=== PATIENT | female | born 1950 | race Caucasian/White ===

== ENCOUNTER 2017-06-25 19:05 | Inpatient (IN) | payer MEDICARE, SELFPAY ==
--- NOTE | 2017-06-25 19:51 | PCM.HP.STD ---
Problem List (1) Osteoarthritis of right hip Status: Chronic (2) Anxiety Status: Chronic (3) Hyperlipidemia Status: Chronic (4) Tobacco abuse Status: Chronic (5) Chronic obstructive pulmonary disease Status: Chronic (6) Lumbar disc disease Status: Chronic (7) Obesity Status: Chronic (8) Depression Status: Chronic (9) Chronic kidney disease Status: Chronic (10) Vertigo Status: Chronic (11) HTN (hypertension) Status: Chronic (12) Esophageal reflux Status: Chronic History of Present Illness Date of Admission: 06/25/17 Chief Complaint: Here for rehabilitation, strengthening, prior to discharge home alone. The patient is a 66 year old Female with below past medical history underwent right total hip replacement 06/23/2017 at [facility], admitted to TCU for rehabilitation, strengthening, prior to discharge home alone. Past Medical History Past Medical History (Chronic Problems): Chronic Problems Osteoarthritis of right hip (Chronic) Anxiety (Chronic) Hyperlipidemia (Chronic) Tobacco abuse (Chronic) Chronic obstructive pulmonary disease (Chronic) Lumbar disc disease (Chronic) Obesity (Chronic) Depression (Chronic) Chronic kidney disease (Chronic) Vertigo (Chronic) Tobacco use disorder (Chronic) Hematemesis (Chronic) HTN (hypertension) (Chronic) Esophageal reflux (Chronic) Depressive disorder (Chronic) Allergies ibuprofen Adverse Reaction (Verified 07/31/13 23:28) Other metronidazole [From Flagyl] Adverse Reaction (Verified 07/31/13 23:28) Swelling Home Medications: Ambulatory Orders Medication Instructions Recorded Omeprazole [Prilosec] 20 mg PO DAILY 07/31/13 Sertraline HCl [Zoloft] 50 mg PO QHS 07/31/13 Albuterol Inhaler [Ventolin Hfa 2 puff INHALATION Q4H PRN PRN 06/25/17 (SP)] Docusate Sodium [Colace] 100 mg PO BID 06/25/17 Enoxaparin [Lovenox] 40 mg SC DAILY@0600 06/25/17 HYDROmorphone tablet [Dilaudid] 1 - 2 tab PO Q4H PRN PRN 06/25/17 Lidocaine [Lidoderm] 1 patch TOPICAL DAILY 06/25/17 Lisinopril/Hydrochlorothiazide 1 each PO DAILY 06/25/17 [Zestoretic 20-12.5 mg Tablet] Pravastatin [Pravachol] 40 mg PO QHS 06/25/17 Sennosides [Senna] 8.6 mg PO DAILY 06/25/17 Tizanidine HCl 4 mg PO DAILY 06/25/17 Topiramate [Topamax] 25 mg PO BID 06/25/17 Verapamil HCl [Verapamil Sr] 270 mg PO DAILY 06/25/17 buPROPion SR [Wellbutrin SR (150mg 150 mg PO BID 06/25/17 tablets)] Surgical History: hysterectomy, total hip arthroplasty - Right. Psychiatric History: Anxiety, Depression HOSPITAL NURSE History: No pertinent HOSPITAL NURSE history Lives: Alone Smoking Status: Current every day smoker Tobacco Use: Cigarettes Alcohol: Rare Drugs: None - *Family History Maternal History Items: No pertinent history Paternal History Items: No pertinent history Review of Systems Constitutional: Denies: Chills, Fever, Weight Change HEENT: Denies: Head Aches, Sinus Congestion, Sinus Drainage Cardiovascular: Denies: Chest Pain, Palpitations Respiratory: Denies: Cough, Shortness of breath at rest, Sputum production Gastrointestinal: Reports: Constipation. Denies: Abdominal Pain, Nausea, Vomiting Genitourinary: Denies: Dysuria Musculoskeletal: Denies: Joint Pain, Joint Tenderness Skin: Denies: Rash, Wounds Neurological: Denies: Numbness, Tingling, Focal weakness Psychiatric: Denies: Anxiety, Depression, Homicidal Ideations, Suicidal Ideations Hematologic/ Lymphatic: Denies: Easy Bruising, Easy Bleeding VTE Information - Inpt Only VTE Present on Admission: No VTE Mechan Device Prophylaxis: Knee High JOHN Hose VTE Pharm Prophylaxis ordered?: Yes - Physical Exam General: Alert, Oriented x3, Cooperative HEENT: Atraumatic, PERRLA, EOMI, Normocephalic Neck: Supple, No JVD, Negative Carotid Bruits Lungs: Clear to auscultation, Normal air movement Cardiovascular: Regular rate, No murmurs Abdomen: Bowel Sounds Present, Soft, Non Tender Extremities: No edema, Capillary Refill Less than 3 Seconds Skin: No rashes, No breakdown, Incision - Right hip clean, dry, intact. Musculoskeletal: No Tenderness to Palpation of Joints or Extremities Neurological: Cranial nerves II-XII grossly intact Psych/Mental Status: Normal Affect, Appropriate Assessment/Plan 66 year old female with below past medical history hospitalized for right total hip replacement 06/23/2017, admitted to TCU with debility, here for rehabilitation, strengthening, prior to discharge home alone. Debility - PT/OT. Pain - Tylenol 1000MG Q8H PRN mild pain, Dilaudid 4MG 1 tablet Q4H PRN severe pain, Lidoderm patch 1 patch daily. Bowel - Miralax 17GM daily, Senna/colace 2 tablets BID, Dulcolax 10MG PO daily PRN, Clean out with Golytely 2 Liters PO x 1 dose. Pneumonia vaccination - Administer Prevnar 13 and/or Pneumovax 23 as necessary. DVT prophylaxis - Lovenox 40MG SC daily. Shortness of breath - Albuterol 2 puffs Q4H PRN. Depression - Bupropion SR 150MG BID, Sertraline 50MG QHS, Topamax 25MG BID. Hypertension - Lisinopril HCT 20/12.5MG daily, Verapamil 270MG daily. GERD - Pantoprazole 20MG daily. Hyperlipidemia - Pravastatin 40MG QHS. Muscle spasm - Tizanidine 4MG daily.
[2017-06-25 19:53] VITALS: BMI 43.9
[2017-06-25 19:59] VITALS: BP 109/59; PULSE 75; RESP 18; TEMP 36.6; O2SAT 94
--- NOTE | 2017-06-25 20:02 | HP.PCM_ITS ---
Problem List (1) Osteoarthritis of right hip Status: Chronic (2) Anxiety Status: Chronic (3) Hyperlipidemia Status: Chronic (4) Tobacco abuse Status: Chronic (5) Chronic obstructive pulmonary disease Status: Chronic (6) Lumbar disc disease Status: Chronic (7) Obesity Status: Chronic (8) Depression Status: Chronic (9) Chronic kidney disease Status: Chronic (10) Vertigo Status: Chronic (11) HTN (hypertension) Status: Chronic (12) Esophageal reflux Status: Chronic History of Present Illness Date of Admission: 06/25/17 Chief Complaint: Here for rehabilitation, strengthening, prior to discharge home alone. The patient is a 66 year old Female with below past medical history underwent right total hip replacement 06/23/2017 at [facility], admitted to TCU for rehabilitation, strengthening, prior to discharge home alone. Past Medical History Past Medical History (Chronic Problems): Chronic Problems Osteoarthritis of right hip (Chronic) Anxiety (Chronic) Hyperlipidemia (Chronic) Tobacco abuse (Chronic) Chronic obstructive pulmonary disease (Chronic) Lumbar disc disease (Chronic) Obesity (Chronic) Depression (Chronic) Chronic kidney disease (Chronic) Vertigo (Chronic) Tobacco use disorder (Chronic) Hematemesis (Chronic) HTN (hypertension) (Chronic) Esophageal reflux (Chronic) Depressive disorder (Chronic) Allergies ibuprofen Adverse Reaction (Verified 07/31/13 23:28) Other metronidazole [From Flagyl] Adverse Reaction (Verified 07/31/13 23:28) Swelling Home Medications: Ambulatory Orders Medication Instructions Recorded Omeprazole [Prilosec] 20 mg PO DAILY 07/31/13 Sertraline HCl [Zoloft] 50 mg PO QHS 07/31/13 Albuterol Inhaler [Ventolin Hfa 2 puff INHALATION Q4H PRN PRN 06/25/17 (SP)] Docusate Sodium [Colace] 100 mg PO BID 06/25/17 Enoxaparin [Lovenox] 40 mg SC DAILY@0600 06/25/17 HYDROmorphone tablet [Dilaudid] 1 - 2 tab PO Q4H PRN PRN 06/25/17 Lidocaine [Lidoderm] 1 patch TOPICAL DAILY 06/25/17 Lisinopril/Hydrochlorothiazide 1 each PO DAILY 06/25/17 [Zestoretic 20-12.5 mg Tablet] Pravastatin [Pravachol] 40 mg PO QHS 06/25/17 Sennosides [Senna] 8.6 mg PO DAILY 06/25/17 Tizanidine HCl 4 mg PO DAILY 06/25/17 Topiramate [Topamax] 25 mg PO BID 06/25/17 Verapamil HCl [Verapamil Sr] 270 mg PO DAILY 06/25/17 buPROPion SR [Wellbutrin SR (150mg 150 mg PO BID 06/25/17 tablets)] Surgical History: hysterectomy, total hip arthroplasty - Right. Psychiatric History: Anxiety, Depression OPERATIONS SUPPORT PROFESSIONALS History: No pertinent [employer]ATIONS SUPPORT PROFESSIONALS history Lives: Alone Smoking Status: Current every day smoker Tobacco Use: Cigarettes Alcohol: Rare Drugs: None - *Family History Maternal History Items: No pertinent history Paternal History Items: No pertinent history Review of Systems Constitutional: Denies: Chills, Fever, Weight Change HEENT: Denies: Head Aches, Sinus Congestion, Sinus Drainage Cardiovascular: Denies: Chest Pain, Palpitations Respiratory: Denies: Cough, Shortness of breath at rest, Sputum production Gastrointestinal: Reports: Constipation. Denies: Abdominal Pain, Nausea, Vomiting Genitourinary: Denies: Dysuria Musculoskeletal: Denies: Joint Pain, Joint Tenderness Skin: Denies: Rash, Wounds Neurological: Denies: Numbness, Tingling, Focal weakness Psychiatric: Denies: Anxiety, Depression, Homicidal Ideations, Suicidal Ideations Hematologic/ Lymphatic: Denies: Easy Bruising, Easy Bleeding VTE Information - Inpt Only VTE Present on Admission: No VTE Mechan Device Prophylaxis: Knee High JOHN Hose VTE Pharm Prophylaxis ordered?: Yes - Physical Exam General: Alert, Oriented x3, Cooperative HEENT: Atraumatic, PERRLA, EOMI, Normocephalic Neck: Supple, No JVD, Negative Carotid Bruits Lungs: Clear to auscultation, Normal air movement Cardiovascular: Regular rate, No murmurs Abdomen: Bowel Sounds Present, Soft, Non Tender Extremities: No edema, Capillary Refill Less than 3 Seconds Skin: No rashes, No breakdown, Incision - Right hip clean, dry, intact. Musculoskeletal: No Tenderness to Palpation of Joints or Extremities Neurological: Cranial nerves II-XII grossly intact Psych/Mental Status: Normal Affect, Appropriate Assessment/Plan 66 year old female with below past medical history hospitalized for right total hip replacement 06/23/2017, admitted to TCU with debility, here for rehabilitation, strengthening, prior to discharge home alone. * Debility - PT/OT. * Pain - Tylenol 1000MG Q8H PRN mild pain, Dilaudid 4MG 1 tablet Q4H PRN severe pain, Lidoderm patch 1 patch daily. * Bowel - Miralax 17GM daily, Senna/colace 2 tablets BID, Dulcolax 10MG PO daily PRN, Clean out with Golytely 2 Liters PO x 1 dose. * Pneumonia vaccination - Administer Prevnar 13 and/or Pneumovax 23 as necessary. * DVT prophylaxis - Lovenox 40MG SC daily. * Shortness of breath - Albuterol 2 puffs Q4H PRN. * Depression - Bupropion SR 150MG BID, Sertraline 50MG QHS, Topamax 25MG BID. * Hypertension - Lisinopril HCT 20/12.5MG daily, Verapamil 270MG daily. * GERD - Pantoprazole 20MG daily. * Hyperlipidemia - Pravastatin 40MG QHS. * Muscle spasm - Tizanidine 4MG daily.
[2017-06-25 20:05] VITALS: BMI 43.9
[2017-06-25 20:23] VITALS: O2SAT 94
--- NOTE | 2017-06-25 21:18 | NURSING ---
Dr. Roldan aware of no Bm since 06/22 and pt requesting nicotine patch. Orders entered.
[2017-06-25] MEDS: Sertraline 50 MG Tablet PO (21:53)
[2017-06-25] MEDS: Pravastatin 40 MG Tablet PO (21:54)
[2017-06-25] MEDS: Magnesium Citrate 300 ML PO (22:54)
[2017-06-26] MEDS: HYDROmorphone 2 MG TABLET 4 MG PO ×4 (00:11→23:15)
[2017-06-26] MEDS: Lidocaine 5% Patch 1 PATCH TOPICAL (06:25)
[2017-06-26] MEDS: Polyethylene Glycol 3350 17 GM PACKET PO (06:25)
[2017-06-26] MEDS: Pantoprazole Sodium 20 MG Tablet PO (06:25)
[2017-06-26] MEDS: Senna/Docusate Sodium 1 Tablet 2 TABLET PO ×2 (06:25→17:16)
[2017-06-26] MEDS: Lisinopril 20 MG Tablet PO (06:39)
[2017-06-26] MEDS: tiZANidine HCl 2 MG Tablet 4 MG PO (07:18)
[2017-06-26] MEDS: HYDROCHLOROTHIAZIDE 12.5 MG CAPSULE PO (07:19)
[2017-06-26 07:22] LABS: Absolute Lymphocyte Count 2.64 X10^3/ul (0.83-4.51); Absolute Neutrophil Count 7.2 X10^3/uL (2.0-7.7); BUN 20 mg/dL (7-18); Basophil# 0.03 X10^3/uL; Basophil% 0.3 % (0-1); Creatinine, Serum 0.95 mg/dL (0.55-1.02); EST Glomerular Filtration Rate 63 mL/min (>60); Eosinophil# 0.11 X10^3/uL; Estimated Creatinine Clearance 48.84 ml/min; Glucose 98 mg/dL (74-106); Hematocrit 36.1 % (37-47); Hemoglobin 11.3 g/dl (12.0-15.0); Lymphocyte # 2.64 X10^3/ul (4.0); Lymphocyte % 23.7 % (19-41); Mean Corp Hgb Conc 31.3 g/gl (32-36); Mean Corpuscular Hgb 29.4 pg (27.0-32.0); Mean Platelet Vol. 10.1 fl (6.2-12.0); Monocyte# 1.18 X10^3/uL; Monocyte% 10.6 % (0-10); Neutrophil # 7.17 X10^3/uL (2.7-7.7); Neutrophil % 64.1 % (47-70); POSITIVE COUNT NO; POSITIVE DIFFERENTIAL NO; POSITIVE MORPHOLOGY NO; Platelet Count 268 K/mm3 (150-450); RBC Distribution Width CV 14.1 % (11.6-14.6); Red Blood Count 3.84 M/mm3 (4.2-5.4); White Blood Count 11.2 K/mm3 (4.4-11.0)
[2017-06-26 07:23] LABS: Anion Gap 8 (5-15); Chloride 102 mmol/L (98-107); Est Glom Filt Rate - Afr Amer 76 mL/min (>60); Potassium 3.5 mmol/L (3.5-5.1); Sodium Level 139 mmol/L (136-145)
[2017-06-26] MEDS: buPROPion (SR) 150 MG Tablet.SA PO ×2 (09:01→17:16)
[2017-06-26] MEDS: Enoxaparin 40 MG/0.4 ML Syringe SC (09:01)
--- NOTE | 2017-06-26 09:08 | NURSING ---
old nicotine patch removed and wasted with marley osuna down the toilet. old patch was from [facility] new patch to left delt.
[2017-06-26] MEDS: Tuberculin,Purif.prot.deriv. 50 TU/ML Vial 5 ML ID (09:50)
[2017-06-26 10:00] VITALS: PULSE 77; RESP 18; O2SAT 94
[2017-06-26] MEDS: Bisacodyl 5 MG Tablet 10 MG PO (14:41)
[2017-06-26 15:34] VITALS: BP 101/50; PULSE 78; RESP 16; TEMP 37.2; O2SAT 95
[2017-06-26] MEDS: Topiramate 25 MG Tablet PO (17:16)
[2017-06-26] MEDS: Pravastatin 40 MG Tablet PO (20:56)
[2017-06-26] MEDS: Sertraline 50 MG Tablet PO (20:56)
--- NOTE | 2017-06-26 21:13 | NURSING ---
BP 94/50 RECHECKED X 3 WITH MANUAL CUFF VERAPAMIL HELD. ALSO PER [facility] [employer] PROFESSOR PATIENT REMOVED HER NICOTINE PATCH. PATIENT REQUESTED NEW PATCH NOW. VERIFIED WITH BILLIE HUANG. OK TO PLACE. CURRENTLY NEW PATCH ON RIGHT SHOULDER. WILL CONT TO MONITOR. BILLIE HUANG. AWARE OF SAME.
[2017-06-27] MEDS: HYDROmorphone 2 MG TABLET 4 MG PO ×3 (03:18→21:03)
[2017-06-27] MEDS: Lidocaine 5% Patch 1 PATCH TOPICAL (04:56)
[2017-06-27] MEDS: Polyethylene Glycol 3350 17 GM PACKET PO (04:57)
[2017-06-27] MEDS: Senna/Docusate Sodium 1 Tablet 2 TABLET PO ×2 (04:57→17:26)
[2017-06-27] MEDS: tiZANidine HCl 2 MG Tablet 4 MG PO (04:58)
[2017-06-27] MEDS: HYDROCHLOROTHIAZIDE 12.5 MG CAPSULE PO (04:58)
[2017-06-27] MEDS: Topiramate 25 MG Tablet PO ×2 (04:58→17:26)
[2017-06-27] MEDS: Lisinopril 20 MG Tablet PO (04:59)
[2017-06-27] MEDS: Pantoprazole Sodium 20 MG Tablet PO (05:00)
[2017-06-27] MEDS: Enoxaparin 40 MG/0.4 ML Syringe SC (05:01)
[2017-06-27 06:00] VITALS: PULSE 60; RESP 18; O2SAT 95
[2017-06-27] MEDS: buPROPion (SR) 150 MG Tablet.SA PO ×2 (08:02→17:26)
[2017-06-27] MEDS: Bisacodyl 5 MG Tablet 10 MG PO (15:43)
[2017-06-27 15:50] VITALS: BP 102/58; PULSE 82; RESP 16; TEMP 37.1; O2SAT 95
--- NOTE | 2017-06-27 17:25 | NURSING ---
CA PATCH VERIFIED TO PT LEFT SHOULDER.
[2017-06-27] MEDS: Verapamil SR 240 MG Tablet PO (21:05)
[2017-06-27] MEDS: Pravastatin 40 MG Tablet PO (21:06)
[2017-06-27] MEDS: Sertraline 50 MG Tablet PO (21:06)
[2017-06-28] MEDS: HYDROmorphone 2 MG TABLET 4 MG PO ×4 (02:06→20:16)
[2017-06-28] MEDS: Lidocaine 5% Patch 1 PATCH TOPICAL (05:38)
[2017-06-28] MEDS: Pantoprazole Sodium 20 MG Tablet PO (05:39)
[2017-06-28] MEDS: HYDROCHLOROTHIAZIDE 12.5 MG CAPSULE PO (05:39)
[2017-06-28] MEDS: Senna/Docusate Sodium 1 Tablet 2 TABLET PO ×2 (05:39→17:07)
[2017-06-28] MEDS: Polyethylene Glycol 3350 17 GM PACKET PO (05:39)
[2017-06-28] MEDS: Lisinopril 20 MG Tablet PO (05:39)
[2017-06-28] MEDS: tiZANidine HCl 2 MG Tablet 4 MG PO (05:39)
[2017-06-28] MEDS: Enoxaparin 40 MG/0.4 ML Syringe SC (05:40)
[2017-06-28] MEDS: Topiramate 25 MG Tablet PO ×2 (05:40→17:07)
[2017-06-28 05:45] VITALS: PULSE 78; RESP 18; O2SAT 93
[2017-06-28] MEDS: buPROPion (SR) 150 MG Tablet.SA PO ×2 (07:55→17:07)
--- NOTE | 2017-06-28 09:38 | NURSING ---
Pt LBM 06/22, routine meds ineffective. Dr Roldan notified, new order for golytely to be given today. Pt wants after therapy session today.
[2017-06-28] MEDS: Electrolyte Solution/Peg's 4000 ML 2000 ML PO (15:07)
[2017-06-28 16:13] VITALS: BP 107/71; PULSE 78; RESP 16; TEMP 36.7; O2SAT 93
[2017-06-28] MEDS: Sertraline 50 MG Tablet PO (20:16)
[2017-06-28] MEDS: Verapamil SR 240 MG Tablet PO (20:17)
[2017-06-28] MEDS: Pravastatin 40 MG Tablet PO (20:18)
--- NOTE | 2017-06-28 20:19 | NURSING ---
Pt c/o pain to hip, down leg which is worsened with 'repeatedly getting up to go to the bathroom'. Stated she is still drinking golytely but 'my stomach is upset'. Given prn pain medication per request, repositioned for comfort. Continuing to monitor.
[2017-06-29] MEDS: HYDROmorphone 2 MG TABLET 4 MG PO ×5 (01:37→21:57)
--- NOTE | 2017-06-29 01:46 | NURSING ---
Pt c/o feeling light headed, slightly dizzy, nauseated and in pain. Given prn dilaudid 4mg as requested. Toileted with assist of 2 to BSC, pt sat on side of bed for awhile, and was assisted with 2 back to bed, repositioned for comfort. RN aware, continuing to monitor.
[2017-06-29] MEDS: Polyethylene Glycol 3350 17 GM PACKET PO (04:48)
--- NOTE | 2017-06-29 04:49 | NURSING ---
Pt up and down throughout night on BSC. During transfer back to bed pt lifted and slammed her walker down several times yelling 'It just doesn't want to work!' becoming visibly frustrated. Assisted to sitting on side of bed. Pt has asked for pain medication several times, aware it is too early. Assured pt when orders allow medication it will be given as requested. Pt okay with this. Did not want to lie down, wanted to be 'left alone' to sit on side of bed 'for awhile' Pt has call light and stated she will call when ready to be assisted back into bed, or after she is given pain medication. Encouraged pt to call for staff assist. RN aware, continuing to monitor.
[2017-06-29] MEDS: HYDROCHLOROTHIAZIDE 12.5 MG CAPSULE PO (05:25)
[2017-06-29] MEDS: Lidocaine 5% Patch 1 PATCH TOPICAL (05:25)
[2017-06-29] MEDS: Enoxaparin 40 MG/0.4 ML Syringe SC (05:26)
[2017-06-29] MEDS: Pantoprazole Sodium 20 MG Tablet PO (05:28)
[2017-06-29] MEDS: Lisinopril 20 MG Tablet PO (05:29)
[2017-06-29] MEDS: Senna/Docusate Sodium 1 Tablet 2 TABLET PO ×2 (05:29→17:02)
[2017-06-29] MEDS: Topiramate 25 MG Tablet PO ×2 (05:29→17:02)
--- NOTE | 2017-06-29 05:38 | NURSING ---
Pt given prn pain medication per request, repositioned for comfort. Continuing to monitor, encourage rest.
[2017-06-29] MEDS: buPROPion (SR) 150 MG Tablet.SA PO ×2 (08:56→17:02)
--- NOTE | 2017-06-29 08:58 | NURSING ---
VERIFIED NICOTINE PATCH TO LEFT DELT.
[2017-06-29 10:00] VITALS: PULSE 65; RESP 18; O2SAT 92
--- NOTE | 2017-06-29 10:03 | NURSING ---
FINISHED REMOVING PT DRESSING TO RIGHT HIP THAT WAS COMING OFF AND BRINGING TOP LAYER OF SKIN WITH IT IN SPOTS.NO SIGNS OF INFECTION OR REDNESS,COOL TO TOUCH. 1 WATER BLISTER AT TOP OF INCISION AND 1 OPENED. 1 OPEN AREA AT END OF TOP INCISION. APPLIED STERI STRIPS TO DISTAL END AND ABD TO UPPER AREA OF INCISIONS TO COVER BLISTERS. HAD BILLIE MCCOY LOOK AT INCISION. PT TOLERATED WELL.
--- NOTE | 2017-06-29 12:37 | PHA.CONS_ITS ---
<AngelaChaz mills - Last Filed: 06/29/17 12:31> Progress Note - Pharmacy Subjective: TCU Admission Objective: Allergies ibuprofen Adverse Reaction (Verified 07/31/13 23:28) Other metronidazole [From Flagyl] Adverse Reaction (Verified 07/31/13 23:28) Swelling Home Medications Medication Instructions Recorded Omeprazole [Prilosec] 20 mg PO DAILY 07/31/13 Sertraline HCl [Zoloft] 50 mg PO QHS 07/31/13 Albuterol Inhaler [Ventolin Hfa 2 puff INHALATION Q4H PRN PRN 06/25/17 (SP)] Docusate Sodium [Colace] 100 mg PO BID 06/25/17 Enoxaparin [Lovenox] 40 mg SC DAILY@0600 06/25/17 HYDROmorphone tablet [Dilaudid] 1 - 2 tab PO Q4H PRN PRN 06/25/17 Lidocaine [Lidoderm] 1 patch TOPICAL DAILY 06/25/17 Lisinopril/Hydrochlorothiazide 1 each PO DAILY 06/25/17 [Zestoretic 20-12.5 mg Tablet] Pravastatin [Pravachol] 40 mg PO QHS 06/25/17 Sennosides [Senna] 8.6 mg PO DAILY 06/25/17 Tizanidine HCl 4 mg PO DAILY 06/25/17 Topiramate [Topamax] 25 mg PO BID 06/25/17 Verapamil HCl [Verapamil Sr] 270 mg PO DAILY 06/25/17 buPROPion SR [Wellbutrin SR (150mg 150 mg PO BID 06/25/17 tablets)] Current Medications Generic Name Dose Route Start Last Admin Trade Name Freq PRN Reason Stop Dose Admin Acetaminophen 1,000 mg 06/25/17 20:24 Tylenol PO Q8H PRN PRN MILD PAIN (1-3/10) Albuterol Sulfate 2 puff 06/25/17 19:54 Ventolin Hfa (Sp) INHALATION Q4H PRN PRN DYSPNEA/WHEEZING/SOB Bisacodyl 10 mg 06/25/17 20:24 06/27/17 15:43 Dulcolax PO 10 mg DAILY PRN Administration Constipation Bupropion HCl 150 mg 06/26/17 08:00 06/29/17 08:56 Wellbutrin Sr (150mg Tablets) PO 150 mg BIDCM RAMIREZ Administration Enoxaparin Sodium 40 mg 06/26/17 06:00 06/29/17 05:26 Lovenox SC 40 mg DAILY@0600 RAMIREZ Administration Hydrochlorothiazide 12.5 mg 06/26/17 06:00 06/29/17 05:25 Hydrochlorothiazide PO 12.5 mg DAILY RAMIREZ Administration Hydromorphone HCl 4 mg 06/25/17 20:25 06/29/17 12:03 Dilaudid Tablet PO 4 mg Q4H PRN PRN Administration SEVERE PAIN (6-10/10) Lidocaine 1 patch 06/26/17 06:00 06/29/17 05:25 Lidoderm Patch TOPICAL 1 patch DAILY RAMIREZ Administration Protocol Lisinopril 20 mg 06/26/17 06:00 06/29/17 05:29 Zestril PO 20 mg DAILY RAMIREZ Administration Nicotine 7 mg 06/25/17 21:18 06/29/17 05:26 Nicoderm Cq (Pbkc) TRANSDERM. 7 mg DAILY RAMIREZ Administration Pantoprazole Sodium 20 mg 06/26/17 06:00 06/29/17 05:28 Protonix PO 20 mg DAILY RAMIREZ Administration Polyethylene Glycol 17 gm 06/26/17 06:00 06/29/17 04:48 Miralax PO 17 gm DAILY RAMIREZ Administration Pravastatin Sodium 40 mg 06/25/17 22:00 06/28/17 20:18 Pravachol PO 40 mg QHS RAMIREZ Administration Senna/Docusate Sodium 2 tablet 06/26/17 06:00 06/29/17 05:29 Senokot-S, Rosangela-Colace PO 2 tablet BID RAMIREZ Administration Sertraline HCl 50 mg 06/25/17 22:00 06/28/17 20:16 Zoloft PO 50 mg QHS RAMIREZ Administration Tizanidine HCl 4 mg 06/26/17 06:00 06/28/17 05:39 Zanaflex PO 4 mg DAILY RAMIREZ Administration Topiramate 25 mg 06/26/17 06:00 06/29/17 05:29 Topamax PO 25 mg BID RAMIREZ Administration Tuberculin PPD 5 tu 07/03/17 10:00 Tubersol, Aplisol, Ppd ID 07/03/17 10:01 X1 ONE Verapamil HCl 240 mg 06/26/17 22:00 06/28/17 20:17 Calan Sr PO 240 mg DAILY@2200 RAMIREZ Administration Problem List Osteoarthritis of right hip (Chronic) Anxiety (Chronic) Hyperlipidemia (Chronic) Tobacco abuse (Chronic) Chronic obstructive pulmonary disease (Chronic) Lumbar disc disease (Chronic) Obesity (Chronic) Depression (Chronic) Chronic kidney disease (Chronic) Vertigo (Chronic) Vital Signs Temp Pulse Resp BP Pulse Ox 98.0 F 65 18 107/71 92 06/28/17 16:13 06/29/17 10:00 06/29/17 10:00 06/28/17 16:13 06/29/17 10:00 Oxygen Delivery Method Room Air Weight: 119.011 kg Body Mass Index (BMI) 43.9 Sodium 139 mmol/L (136-145) 06/26/17 06:52 Potassium 3.5 mmol/L (3.5-5.1) 06/26/17 06:52 Chloride 102 mmol/L (98-107) 06/26/17 06:52 Carbon Dioxide 29.0 mmol/L (21.0-32.0) 06/26/17 06:52 Anion Gap 8 (5-15) 06/26/17 06:52 BUN 20 mg/dL (7-18) H 06/26/17 06:52 Creatinine 0.95 mg/dL (0.55-1.02) 06/26/17 06:52 Est GFR (MDRD) Af Amer 76 mL/min (>60) 06/26/17 06:52 Est GFR (MDRD) Non-Af 63 mL/min (>60) 06/26/17 06:52 BUN/Creatinine Ratio 21.0 RATIO (10-20) H 06/26/17 06:52 Glucose 98 mg/dL (74-106) 06/26/17 06:52 Assessment/Plan: 1) Pain Lidocaine patch, hydromorphone for severe pain, APAP for mild pain, tizanidine. Continue to monitor daily pain scores, prn medication use. 2) HTN/HLD Verapamil, pravastatin, lisinopril, HCTZ. Avg BP/HR within goal ranges, K wnl , BUN/SCr at baseline. Continue to monitor BP/HR, renal function, electrolytes. 3) GI Pantoprazole daily. Continue to monitor s/s GI distress. 4) Nicotine Cravings Nicotine patch daily. Continue to monitor for cravings. 5) DVT PPx Enoxaparin daily. Continue to monitor s/s bleeding/clot. Psychotropic Medications: 6) Depression Sertraline at HS, bupropion twice daily, topiramate. Continue to monitor s/s depression. Unnecessary Medications: None Bowel Regimen: 7) Senna/s, PEG, prn bisacodyl. Continue to monitor prn medication use, for constipation/diarrhea. Date of Note:: 06/29/17 - Provider Comments Provider responsibility: Provider responsible to enter orders to implement recommendations <Edmundo Roldan Chi - Last Filed: 06/29/17 17:46> Progress Note - Pharmacy Subjective: [] Objective: Allergies ibuprofen Adverse Reaction (Verified 07/31/13 23:28) Other metronidazole [From Flagyl] Adverse Reaction (Verified 07/31/13 23:28) Swelling Home Medications Medication Instructions Recorded Omeprazole [Prilosec] 20 mg PO DAILY 07/31/13 Sertraline HCl [Zoloft] 50 mg PO QHS 07/31/13 Albuterol Inhaler [Ventolin Hfa 2 puff INHALATION Q4H PRN PRN 06/25/17 (SP)] Docusate Sodium [Colace] 100 mg PO BID 06/25/17 Enoxaparin [Lovenox] 40 mg SC DAILY@0600 06/25/17 HYDROmorphone tablet [Dilaudid] 1 - 2 tab PO Q4H PRN PRN 06/25/17 Lidocaine [Lidoderm] 1 patch TOPICAL DAILY 06/25/17 Lisinopril/Hydrochlorothiazide 1 each PO DAILY 06/25/17 [Zestoretic 20-12.5 mg Tablet] Pravastatin [Pravachol] 40 mg PO QHS 06/25/17 Sennosides [Senna] 8.6 mg PO DAILY 06/25/17 Tizanidine HCl 4 mg PO DAILY 06/25/17 Topiramate [Topamax] 25 mg PO BID 06/25/17 Verapamil HCl [Verapamil Sr] 270 mg PO DAILY 06/25/17 buPROPion SR [Wellbutrin SR (150mg 150 mg PO BID 06/25/17 tablets)] Current Medications Generic Name Dose Route Start Last Admin Trade Name Freq PRN Reason Stop Dose Admin Acetaminophen 1,000 mg 06/25/17 20:24 Tylenol PO Q8H PRN PRN MILD PAIN (1-3/10) Albuterol Sulfate 2 puff 06/25/17 19:54 Ventolin Hfa (Sp) INHALATION Q4H PRN PRN DYSPNEA/WHEEZING/SOB Bisacodyl 10 mg 06/25/17 20:24 06/27/17 15:43 Dulcolax PO 10 mg DAILY PRN Administration Constipation Bupropion HCl 150 mg 06/26/17 08:00 06/29/17 17:02 Wellbutrin Sr (150mg Tablets) PO 150 mg BIDCM RAMIREZ Administration Enoxaparin Sodium 40 mg 06/26/17 06:00 06/29/17 05:26 Lovenox SC 40 mg DAILY@0600 RAMIREZ Administration Hydrochlorothiazide 12.5 mg 06/26/17 06:00 06/29/17 05:25 Hydrochlorothiazide PO 12.5 mg DAILY RAMIREZ Administration Hydromorphone HCl 4 mg 06/25/17 20:25 06/29/17 16:41 Dilaudid Tablet PO 4 mg Q4H PRN PRN Administration SEVERE PAIN (6-10/10) Lidocaine 1 patch 06/26/17 06:00 06/29/17 05:25 Lidoderm Patch TOPICAL 1 patch DAILY RAMIREZ Administration Protocol Lisinopril 20 mg 06/26/17 06:00 06/29/17 05:29 Zestril PO 20 mg DAILY RAMIREZ Administration Nicotine 7 mg 06/25/17 21:18 06/29/17 05:26 Nicoderm Cq (Pbkc) TRANSDERM. 7 mg DAILY RAMIREZ Administration Ondansetron HCl 4 mg 06/29/17 14:22 Zofran Odt PO Q8H PRN PRN NAUSEA/VOMITING Pantoprazole Sodium 20 mg 06/26/17 06:00 06/29/17 05:28 Protonix PO 20 mg DAILY RAMIREZ Administration Polyethylene Glycol 17 gm 06/26/17 06:00 06/29/17 04:48 Miralax PO 17 gm DAILY RAMIREZ Administration Pravastatin Sodium 40 mg 06/25/17 22:00 06/28/17 20:18 Pravachol PO 40 mg QHS RAMIREZ Administration Senna/Docusate Sodium 2 tablet 06/26/17 06:00 06/29/17 17:02 Senokot-S, Rosangela-Colace PO 2 tablet BID RAMIREZ Administration Sertraline HCl 50 mg 06/25/17 22:00 06/28/17 20:16 Zoloft PO 50 mg QHS RAMIREZ Administration Tizanidine HCl 4 mg 06/26/17 06:00 06/28/17 05:39 Zanaflex PO 4 mg DAILY RAMIREZ Administration Topiramate 25 mg 06/26/17 06:00 06/29/17 17:02 Topamax PO 25 mg BID RAMIREZ Administration Tuberculin PPD 5 tu 07/03/17 10:00 Tubersol, Aplisol, Ppd ID 07/03/17 10:01 X1 ONE Verapamil HCl 240 mg 06/26/17 22:00 06/28/17 20:17 Calan Sr PO 240 mg DAILY@2200 RAMIREZ Administration Problem List Osteoarthritis of right hip (Chronic) Anxiety (Chronic) Hyperlipidemia (Chronic) Tobacco abuse (Chronic) Chronic obstructive pulmonary disease (Chronic) Lumbar disc disease (Chronic) Obesity (Chronic) Depression (Chronic) Chronic kidney disease (Chronic) Vertigo (Chronic) Vital Signs Temp Pulse Resp BP Pulse Ox 97.5 F L 60 20 H 96/58 L 93 06/29/17 16:00 06/29/17 16:00 06/29/17 16:00 06/29/17 16:00 06/29/17 16:00 Oxygen Delivery Method Room Air Weight: 119.011 kg Body Mass Index (BMI) 43.9 Sodium 139 mmol/L (136-145) 06/26/17 06:52 Potassium 3.5 mmol/L (3.5-5.1) 06/26/17 06:52 Chloride 102 mmol/L (98-107) 06/26/17 06:52 Carbon Dioxide 29.0 mmol/L (21.0-32.0) 06/26/17 06:52 Anion Gap 8 (5-15) 06/26/17 06:52 BUN 20 mg/dL (7-18) H 06/26/17 06:52 Creatinine 0.95 mg/dL (0.55-1.02) 06/26/17 06:52 Est GFR (MDRD) Af Amer 76 mL/min (>60) 06/26/17 06:52 Est GFR (MDRD) Non-Af 63 mL/min (>60) 06/26/17 06:52 BUN/Creatinine Ratio 21.0 RATIO (10-20) H 06/26/17 06:52 Glucose 98 mg/dL (74-106) 06/26/17 06:52 Assessment/Plan: Psychotropic Medications: Unnecessary Medications: Bowel Regimen: - Provider Comments Provider responsibility: Provider responsible to enter orders to implement recommendations Provider Comments to Recommendations by Pharmacy: Agree
--- NOTE | 2017-06-29 14:23 | NURSING ---
Patient c/o nausea, Dr. Roldan made aware, NO for zofran 4mg PO [id number] PRN.
[2017-06-29 16:00] VITALS: BP 96/58; PULSE 60; RESP 20; TEMP 36.4; O2SAT 93
[2017-06-29] MEDS: Pravastatin 40 MG Tablet PO (20:43)
[2017-06-29] MEDS: Sertraline 50 MG Tablet PO (20:43)
[2017-06-30] MEDS: HYDROmorphone 2 MG TABLET 4 MG PO ×4 (05:27→21:50)
[2017-06-30] MEDS: Lidocaine 5% Patch 1 PATCH TOPICAL (05:28)
[2017-06-30] MEDS: HYDROCHLOROTHIAZIDE 12.5 MG CAPSULE PO (05:29)
[2017-06-30] MEDS: Senna/Docusate Sodium 1 Tablet 2 TABLET PO ×2 (05:29→17:27)
[2017-06-30] MEDS: Enoxaparin 40 MG/0.4 ML Syringe SC (05:29)
[2017-06-30] MEDS: Polyethylene Glycol 3350 17 GM PACKET PO (05:29)
[2017-06-30] MEDS: Lisinopril 20 MG Tablet PO (05:29)
[2017-06-30] MEDS: Topiramate 25 MG Tablet PO ×2 (05:30→17:27)
[2017-06-30] MEDS: Pantoprazole Sodium 20 MG Tablet PO (05:30)
[2017-06-30] MEDS: tiZANidine HCl 2 MG Tablet 4 MG PO (05:30)
[2017-06-30] MEDS: buPROPion (SR) 150 MG Tablet.SA PO ×2 (08:09→17:27)
--- NOTE | 2017-06-30 14:27 | CASEMGMT ---
Plan of care meeting held. Resident present as well as resident family. No discharge date set at this time. Resident to continue with further care and treatment on the Transitional Care Unit. Resident plans to discharge home with daughter at time of discharge. Support given. Will continue to follow. Julia MILLAN, INFORMATION CONSULTANT
[2017-06-30 15:27] VITALS: BP 104/53; PULSE 69; RESP 16; TEMP 36.1; O2SAT 96
[2017-06-30 15:45] VITALS: PULSE 70; RESP 18; O2SAT 96
[2017-06-30 21:46] VITALS: BP 98/56; PULSE 69
[2017-06-30] MEDS: Pravastatin 40 MG Tablet PO (21:50)
[2017-06-30] MEDS: Sertraline 50 MG Tablet PO (21:50)
[2017-06-30] MEDS: Menthol/Lanolin/Calamine/Znox 113 GM Tube 1 APPLIC TOPICAL (21:51)
[2017-07-01] MEDS: HYDROmorphone 2 MG TABLET 4 MG PO ×4 (02:33→20:40)
[2017-07-01 04:56] VITALS: BP 95/41; PULSE 70; O2SAT 94
[2017-07-01] MEDS: Senna/Docusate Sodium 1 Tablet 2 TABLET PO ×2 (04:58→16:34)
[2017-07-01] MEDS: Pantoprazole Sodium 20 MG Tablet PO (04:58)
[2017-07-01] MEDS: Topiramate 25 MG Tablet PO ×2 (04:58→16:33)
[2017-07-01] MEDS: tiZANidine HCl 2 MG Tablet 4 MG PO (04:58)
[2017-07-01] MEDS: Polyethylene Glycol 3350 17 GM PACKET PO (04:59)
[2017-07-01] MEDS: Lidocaine 5% Patch 1 PATCH TOPICAL (04:59)
[2017-07-01] MEDS: Menthol/Lanolin/Calamine/Znox 113 GM Tube 1 APPLIC TOPICAL ×3 (04:59→20:30)
[2017-07-01] MEDS: Enoxaparin 40 MG/0.4 ML Syringe SC (04:59)
[2017-07-01] MEDS: Nystatin Powder 15gm Bottle 1 APPLIC TOPICAL ×2 (06:49→16:33)
[2017-07-01] MEDS: buPROPion (SR) 150 MG Tablet.SA PO ×2 (08:41→16:33)
[2017-07-01 10:00] VITALS: PULSE 59; RESP 18; O2SAT 94
--- NOTE | 2017-07-01 14:26 | NURSING ---
Pt noted to have increased redness around incision, Blisters covered with adaptic and ABD. Skin above blisters, red and warm, Aniyah WISE notified
--- NOTE | 2017-07-01 14:57 | CASEMGMT ---
Brief interview for mental status (BIMS) and resident mood interview (PHQ-9) completed on this day. BIMS score 13/15. PHQ-9 score 05/25
[2017-07-01 15:34] VITALS: BP 145/61; PULSE 70; RESP 20; TEMP 36.2; O2SAT 96
--- NOTE | 2017-07-01 18:30 | NURSING ---
Pt wounds swabbed per Dr Roldan order, open blisters covered with adaptic, and ABD. secured with tape. Roxann WISE aware
[2017-07-01] MEDS: Cephalexin 500 MG Capsule PO (20:26)
[2017-07-01] MEDS: Doxycycline 100 MG CAPSULE PO (20:27)
[2017-07-01] MEDS: Pravastatin 40 MG Tablet PO (20:31)
[2017-07-01] MEDS: Verapamil SR 240 MG Tablet PO (20:31)
[2017-07-01] MEDS: Sertraline 50 MG Tablet PO (20:32)
[2017-07-01 20:42] LABS: M R Staph aureus DNA By PCR Negative (Negative); Probe Check PASS; Specimen Processing Control PASS; Staph aureus DNA By PCR NEGATIVE (Negative)
--- NOTE | 2017-07-01 21:53 | PCM.TCUNOT ---
Subjective: Resident having right buttock pain. She is status right total hip arthroplasty. Her right hip incision is seeping yellow drainage, she also has blisters superior to right hip incision. Vitals/I&O's: Vital Signs Temp Pulse Resp BP Pulse Ox 97.1 F L 70 20 H 145/61 H 96 07/01/17 15:34 07/01/17 15:34 07/01/17 15:34 07/01/17 15:34 07/01/17 15:34 Oxygen Delivery Method Room Air Weight: 119.011 kg Body Mass Index (BMI) 43.9 Intake and Output for Last 24 Hours 06/29/17 06/30/17 07/01/17 23:59 23:59 23:59 Intake Total 540 / 540 900 / 900 1630 / 1630 Output Total 400 / 400 Balance 540 / 540 500 / 500 1630 / 1630 Laboratory Results 07/01/17 18:46: S.aureus Protein A PCR NEGATIVE, MRSA (PCR) Negative Past Medical History Past Medical History (Chronic Problems): Chronic Problems Osteoarthritis of right hip (Chronic) Anxiety (Chronic) Hyperlipidemia (Chronic) Tobacco abuse (Chronic) Chronic obstructive pulmonary disease (Chronic) Lumbar disc disease (Chronic) Obesity (Chronic) Depression (Chronic) Chronic kidney disease (Chronic) Vertigo (Chronic) Tobacco use disorder (Chronic) Hematemesis (Chronic) HTN (hypertension) (Chronic) Esophageal reflux (Chronic) Depressive disorder (Chronic) Allergies ibuprofen Adverse Reaction (Verified 07/31/13 23:28) Other metronidazole [From Flagyl] Adverse Reaction (Verified 07/31/13 23:28) Swelling Home Medications: Ambulatory Orders Medication Instructions Recorded Omeprazole [Prilosec] 20 mg PO DAILY 07/31/13 Sertraline HCl [Zoloft] 50 mg PO QHS 07/31/13 Albuterol Inhaler [Ventolin Hfa 2 puff INHALATION Q4H PRN PRN 06/25/17 (SP)] Docusate Sodium [Colace] 100 mg PO BID 06/25/17 Enoxaparin [Lovenox] 40 mg SC DAILY@0600 06/25/17 HYDROmorphone tablet [Dilaudid] 1 - 2 tab PO Q4H PRN PRN 06/25/17 Lidocaine [Lidoderm] 1 patch TOPICAL DAILY 06/25/17 Lisinopril/Hydrochlorothiazide 1 each PO DAILY 06/25/17 [Zestoretic 20-12.5 mg Tablet] Pravastatin [Pravachol] 40 mg PO QHS 06/25/17 Sennosides [Senna] 8.6 mg PO DAILY 06/25/17 Tizanidine HCl 4 mg PO DAILY 06/25/17 Topiramate [Topamax] 25 mg PO BID 06/25/17 Verapamil HCl [Verapamil Sr] 270 mg PO DAILY 06/25/17 buPROPion SR [Wellbutrin SR (150mg 150 mg PO BID 06/25/17 tablets)] Surgical History: hysterectomy, total hip arthroplasty - Right. 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 Lives: Alone Smoking Status: Current every day smoker Tobacco Use: Cigarettes Alcohol: Rare Drugs: None - *Family History Maternal History Items: No pertinent history Paternal History Items: No pertinent history Review of Systems Constitutional: Denies: Chills, Fever, Weight Change HEENT: Denies: Head Aches, Sinus Congestion, Sinus Drainage Cardiovascular: Denies: Chest Pain, Palpitations Respiratory: Denies: Cough, Shortness of breath at rest, Sputum production Gastrointestinal: Denies: Abdominal Pain, Nausea, Vomiting Genitourinary: Denies: Dysuria Musculoskeletal: Denies: Joint Pain, Joint Tenderness Skin: Reports: Skin Changes - Redness right buttock., Wounds - Right hip.. Denies: Rash Neurological: Denies: Numbness, Tingling, Focal weakness Psychiatric: Denies: Anxiety, Depression, Homicidal Ideations, Suicidal Ideations Hematologic/ Lymphatic: Denies: Easy Bruising, Easy Bleeding - Physical Exam General: Alert, Oriented x3, Cooperative HEENT: Atraumatic, PERRLA, EOMI, Normocephalic Neck: Supple, No JVD, Negative Carotid Bruits Lungs: Clear to auscultation, Normal air movement Cardiovascular: Regular rate, No murmurs Abdomen: Bowel Sounds Present, Soft, Non Tender Extremities: No edema, Capillary Refill Less than 3 Seconds Skin: No breakdown, Incision - Right hip incision seeping drainage., - - Pain, tenderness right buttock, Erythema right buttock. Musculoskeletal: No Tenderness to Palpation of Joints or Extremities Neurological: Cranial nerves II-XII grossly intact Psych/Mental Status: Normal Affect, Appropriate Vital Signs Temp Pulse Resp BP Pulse Ox 97.1 F L 70 20 H 145/61 H 96 07/01/17 15:34 07/01/17 15:34 07/01/17 15:34 07/01/17 15:34 07/01/17 15:34 Oxygen Delivery Method Room Air Weight: 119.011 kg Body Mass Index (BMI) 43.9 Intake and Output for Last 24 Hours 06/29/17 06/30/17 07/01/17 23:59 23:59 23:59 Intake Total 540 / 540 900 / 900 1630 / 1630 Output Total 400 / 400 Balance 540 / 540 500 / 500 1630 / 1630 Laboratory Tests Past 24 Hrs 07/01/17 18:46 S.aureus Protein A PCR NEGATIVE MRSA (PCR) Negative Assessment/Plan 66 year old female with below past medical history hospitalized for right total hip replacement 06/23/2017, admitted to TCU with debility, here for rehabilitation, strengthening, prior to discharge home alone. Blister - Swab wound for MRSA, gram stain, culture. Right hip incision cellulitis - Keflex 500MG QID, Doxycycline 100MG BID x 10 days.
--- NOTE | 2017-07-01 21:59 | PN_ITS ---
Subjective: Resident having right buttock pain. She is status right total hip arthroplasty. Her right hip incision is seeping yellow drainage, she also has blisters superior to right hip incision. Vitals/I&O's: Vital Signs Temp Pulse Resp BP Pulse Ox 97.1 F L 70 20 H 145/61 H 96 07/01/17 15:34 07/01/17 15:34 07/01/17 15:34 07/01/17 15:34 07/01/17 15:34 Oxygen Delivery Method Room Air Weight: 119.011 kg Body Mass Index (BMI) 43.9 Intake and Output for Last 24 Hours 06/29/17 06/30/17 07/01/17 23:59 23:59 23:59 Intake Total 540 / 540 900 / 900 1630 / 1630 Output Total 400 / 400 Balance 540 / 540 500 / 500 1630 / 1630 Laboratory Results 07/01/17 18:46: S.aureus Protein A PCR NEGATIVE, MRSA (PCR) Negative Past Medical History Past Medical History (Chronic Problems): Chronic Problems Osteoarthritis of right hip (Chronic) Anxiety (Chronic) Hyperlipidemia (Chronic) Tobacco abuse (Chronic) Chronic obstructive pulmonary disease (Chronic) Lumbar disc disease (Chronic) Obesity (Chronic) Depression (Chronic) Chronic kidney disease (Chronic) Vertigo (Chronic) Tobacco use disorder (Chronic) Hematemesis (Chronic) HTN (hypertension) (Chronic) Esophageal reflux (Chronic) Depressive disorder (Chronic) Allergies ibuprofen Adverse Reaction (Verified 07/31/13 23:28) Other metronidazole [From Flagyl] Adverse Reaction (Verified 07/31/13 23:28) Swelling Home Medications: Ambulatory Orders Medication Instructions Recorded Omeprazole [Prilosec] 20 mg PO DAILY 07/31/13 Sertraline HCl [Zoloft] 50 mg PO QHS 07/31/13 Albuterol Inhaler [Ventolin Hfa 2 puff INHALATION Q4H PRN PRN 06/25/17 (SP)] Docusate Sodium [Colace] 100 mg PO BID 06/25/17 Enoxaparin [Lovenox] 40 mg SC DAILY@0600 06/25/17 HYDROmorphone tablet [Dilaudid] 1 - 2 tab PO Q4H PRN PRN 06/25/17 Lidocaine [Lidoderm] 1 patch TOPICAL DAILY 06/25/17 Lisinopril/Hydrochlorothiazide 1 each PO DAILY 06/25/17 [Zestoretic 20-12.5 mg Tablet] Pravastatin [Pravachol] 40 mg PO QHS 06/25/17 Sennosides [Senna] 8.6 mg PO DAILY 06/25/17 Tizanidine HCl 4 mg PO DAILY 06/25/17 Topiramate [Topamax] 25 mg PO BID 06/25/17 Verapamil HCl [Verapamil Sr] 270 mg PO DAILY 06/25/17 buPROPion SR [Wellbutrin SR (150mg 150 mg PO BID 06/25/17 tablets)] Surgical History: hysterectomy, total hip arthroplasty - Right. 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 Lives: Alone Smoking Status: Current every day smoker Tobacco Use: Cigarettes Alcohol: Rare Drugs: None - *Family History Maternal History Items: No pertinent history Paternal History Items: No pertinent history Review of Systems Constitutional: Denies: Chills, Fever, Weight Change HEENT: Denies: Head Aches, Sinus Congestion, Sinus Drainage Cardiovascular: Denies: Chest Pain, Palpitations Respiratory: Denies: Cough, Shortness of breath at rest, Sputum production Gastrointestinal: Denies: Abdominal Pain, Nausea, Vomiting Genitourinary: Denies: Dysuria Musculoskeletal: Denies: Joint Pain, Joint Tenderness Skin: Reports: Skin Changes - Redness right buttock., Wounds - Right hip.. Denies: Rash Neurological: Denies: Numbness, Tingling, Focal weakness Psychiatric: Denies: Anxiety, Depression, Homicidal Ideations, Suicidal Ideations Hematologic/ Lymphatic: Denies: Easy Bruising, Easy Bleeding - Physical Exam General: Alert, Oriented x3, Cooperative HEENT: Atraumatic, PERRLA, EOMI, Normocephalic Neck: Supple, No JVD, Negative Carotid Bruits Lungs: Clear to auscultation, Normal air movement Cardiovascular: Regular rate, No murmurs Abdomen: Bowel Sounds Present, Soft, Non Tender Extremities: No edema, Capillary Refill Less than 3 Seconds Skin: No breakdown, Incision - Right hip incision seeping drainage., - - Pain, tenderness right buttock, Erythema right buttock. Musculoskeletal: No Tenderness to Palpation of Joints or Extremities Neurological: Cranial nerves II-XII grossly intact Psych/Mental Status: Normal Affect, Appropriate Vital Signs Temp Pulse Resp BP Pulse Ox 97.1 F L 70 20 H 145/61 H 96 07/01/17 15:34 07/01/17 15:34 07/01/17 15:34 07/01/17 15:34 07/01/17 15:34 Oxygen Delivery Method Room Air Weight: 119.011 kg Body Mass Index (BMI) 43.9 Intake and Output for Last 24 Hours 06/29/17 06/30/17 07/01/17 23:59 23:59 23:59 Intake Total 540 / 540 900 / 900 1630 / 1630 Output Total 400 / 400 Balance 540 / 540 500 / 500 1630 / 1630 Laboratory Tests Past 24 Hrs 07/01/17 18:46 S.aureus Protein A PCR NEGATIVE MRSA (PCR) Negative Assessment/Plan 66 year old female with below past medical history hospitalized for right total hip replacement 06/23/2017, admitted to TCU with debility, here for rehabilitation, strengthening, prior to discharge home alone. * Blister - Swab wound for MRSA, gram stain, culture. * Right hip incision cellulitis - Keflex 500MG QID, Doxycycline 100MG BID x 10 days.
[2017-07-02] MEDS: HYDROmorphone 2 MG TABLET 4 MG PO ×4 (04:56→21:59)
[2017-07-02] MEDS: Menthol/Lanolin/Calamine/Znox 113 GM Tube 1 APPLIC TOPICAL ×3 (04:57→21:53)
[2017-07-02] MEDS: Lidocaine 5% Patch 1 PATCH TOPICAL (04:57)
[2017-07-02] MEDS: Nystatin Powder 15gm Bottle 1 APPLIC TOPICAL ×2 (04:58→17:59)
[2017-07-02] MEDS: Enoxaparin 40 MG/0.4 ML Syringe SC (04:58)
[2017-07-02] MEDS: Polyethylene Glycol 3350 17 GM PACKET PO (04:58)
[2017-07-02] MEDS: HYDROCHLOROTHIAZIDE 12.5 MG CAPSULE PO (04:59)
[2017-07-02] MEDS: Senna/Docusate Sodium 1 Tablet 2 TABLET PO ×2 (05:00→17:59)
[2017-07-02] MEDS: Cephalexin 500 MG Capsule PO ×2 (05:00→17:59)
[2017-07-02] MEDS: tiZANidine HCl 2 MG Tablet 4 MG PO (05:00)
[2017-07-02] MEDS: Pantoprazole Sodium 20 MG Tablet PO (05:00)
[2017-07-02] MEDS: Topiramate 25 MG Tablet PO ×2 (05:00→17:59)
[2017-07-02] MEDS: Lisinopril 20 MG Tablet PO (05:00)
[2017-07-02] MEDS: Doxycycline 100 MG CAPSULE PO ×2 (05:00→17:59)
[2017-07-02 05:35] VITALS: PULSE 66; RESP 16; O2SAT 96
[2017-07-02] MEDS: buPROPion (SR) 150 MG Tablet.SA PO ×2 (11:37→17:59)
[2017-07-02 15:27] VITALS: BP 105/62; PULSE 74; RESP 20; TEMP 36.9; O2SAT 96
[2017-07-02] MEDS: Verapamil SR 240 MG Tablet PO (21:53)
[2017-07-02] MEDS: Pravastatin 40 MG Tablet PO (21:53)
[2017-07-02] MEDS: Sertraline 50 MG Tablet PO (21:53)
[2017-07-03] MEDS: Enoxaparin 40 MG/0.4 ML Syringe SC (04:19)
[2017-07-03] MEDS: tiZANidine HCl 2 MG Tablet 4 MG PO (04:19)
[2017-07-03] MEDS: Senna/Docusate Sodium 1 Tablet 2 TABLET PO ×2 (04:19→17:29)
[2017-07-03] MEDS: Topiramate 25 MG Tablet PO ×2 (04:19→17:29)
[2017-07-03] MEDS: Lidocaine 5% Patch 1 PATCH TOPICAL (04:20)
[2017-07-03] MEDS: HYDROCHLOROTHIAZIDE 12.5 MG CAPSULE PO (04:20)
[2017-07-03] MEDS: Cephalexin 500 MG Capsule PO ×2 (04:20→17:29)
[2017-07-03] MEDS: Pantoprazole Sodium 20 MG Tablet PO (04:20)
[2017-07-03] MEDS: Polyethylene Glycol 3350 17 GM PACKET PO (04:20)
[2017-07-03] MEDS: Doxycycline 100 MG CAPSULE PO ×2 (04:20→17:29)
[2017-07-03] MEDS: Menthol/Lanolin/Calamine/Znox 113 GM Tube 1 APPLIC TOPICAL ×3 (04:21→20:20)
[2017-07-03] MEDS: Nystatin Powder 15gm Bottle 1 APPLIC TOPICAL ×2 (04:21→20:19)
[2017-07-03] MEDS: Lisinopril 20 MG Tablet PO (04:22)
[2017-07-03] MEDS: HYDROmorphone 2 MG TABLET 4 MG PO ×3 (04:25→20:39)
[2017-07-03] MEDS: Acetaminophen 500 MG Tablet 1000 MG PO ×2 (04:26→13:56)
[2017-07-03 08:24] LABS: Absolute Lymphocyte Count 2.98 X10^3/ul (0.83-4.51); Absolute Neutrophil Count 5.2 X10^3/uL (2.0-7.7); Basophil# 0.04 X10^3/uL; Basophil% 0.4 % (0-1); Eosinophil# 0.56 X10^3/uL; Eosinophils% 5.7 % (0-5); Hematocrit 32.8 % (37-47); Hemoglobin 10.1 g/dl (12.0-15.0); Lymphocyte # 2.98 X10^3/ul (4.0); Lymphocyte % 30.2 % (19-41); Mean Corp Hgb Conc 30.8 g/gl (32-36); Mean Corpuscular Hgb 29.4 pg (27.0-32.0); Mean Corpuscular Volume 95.6 fL (81-99); Mean Platelet Vol. 9.2 fl (6.2-12.0); Monocyte# 0.97 X10^3/uL; Monocyte% 9.8 % (0-10); Neutrophil # 5.24 X10^3/uL (2.7-7.7); POSITIVE COUNT NO; POSITIVE DIFFERENTIAL NO; POSITIVE MORPHOLOGY NO; Platelet Count 433 K/mm3 (150-450); RBC Distribution Width CV 14.6 % (11.6-14.6); RBC Distribution Width SD 51.2 fl (35.1-43.9); Red Blood Count 3.43 M/mm3 (4.2-5.4); White Blood Count 9.9 K/mm3 (4.4-11.0)
[2017-07-03 08:55] LABS: Anion Gap 8 (5-15); BUN 29 mg/dL (7-18); BUN/Creat Ratio 26.1 RATIO (10-20); Calcium,Total 8.7 mg/dL (8.5-10.1); Chloride 105 mmol/L (98-107); Creatinine, Serum 1.11 mg/dL (0.55-1.02); EST Glomerular Filtration Rate 52 mL/min (>60); Est Glom Filt Rate - Afr Amer 63 mL/min (>60); Glucose 96 mg/dL (74-106); Potassium 4.5 mmol/L (3.5-5.1); Sodium Level 139 mmol/L (136-145)
[2017-07-03] MEDS: buPROPion (SR) 150 MG Tablet.SA PO ×2 (09:25→17:29)
[2017-07-03] MEDS: Tuberculin,Purif.prot.deriv. 50 TU/ML Vial 5 ML ID (13:29)
[2017-07-03 14:13] VITALS: BP 112/59; PULSE 68; RESP 20; TEMP 36.6; O2SAT 95
[2017-07-03] MEDS: Sertraline 50 MG Tablet PO (20:22)
[2017-07-03] MEDS: Pravastatin 40 MG Tablet PO (20:22)
[2017-07-03] MEDS: Verapamil SR 240 MG Tablet PO (20:22)
--- NOTE | 2017-07-03 20:38 | NURSING ---
Pt requesting prn pain medication for c/o pain in knee and hip. Ice packs on knee, given prn pain meds and repositioned for comfort. Continuing to monitor.
[2017-07-04] MEDS: HYDROCHLOROTHIAZIDE 12.5 MG CAPSULE PO (05:14)
[2017-07-04] MEDS: Lisinopril 20 MG Tablet PO (05:14)
[2017-07-04] MEDS: Menthol/Lanolin/Calamine/Znox 113 GM Tube 1 APPLIC TOPICAL ×3 (05:14→20:26)
[2017-07-04] MEDS: tiZANidine HCl 2 MG Tablet 4 MG PO (05:14)
[2017-07-04] MEDS: Pantoprazole Sodium 20 MG Tablet PO (05:15)
[2017-07-04] MEDS: Senna/Docusate Sodium 1 Tablet 2 TABLET PO ×2 (05:15→17:47)
[2017-07-04] MEDS: Enoxaparin 40 MG/0.4 ML Syringe SC (05:16)
[2017-07-04] MEDS: Doxycycline 100 MG CAPSULE PO ×2 (05:16→17:47)
[2017-07-04] MEDS: Cephalexin 500 MG Capsule PO ×2 (05:16→17:47)
[2017-07-04] MEDS: Polyethylene Glycol 3350 17 GM PACKET PO (05:16)
[2017-07-04] MEDS: Topiramate 25 MG Tablet PO ×2 (05:17→17:47)
[2017-07-04] MEDS: Nystatin Powder 15gm Bottle 1 APPLIC TOPICAL ×2 (05:17→17:48)
[2017-07-04] MEDS: Lidocaine 5% Patch 1 PATCH TOPICAL (05:17)
[2017-07-04] MEDS: buPROPion (SR) 150 MG Tablet.SA PO ×2 (07:47→17:47)
[2017-07-04] MEDS: HYDROmorphone 2 MG TABLET 4 MG PO ×2 (07:47→15:10)
[2017-07-04 15:24] VITALS: BP 107/61; PULSE 80; RESP 16; TEMP 36.2; O2SAT 95
--- NOTE | 2017-07-04 16:26 | NURSING ---
Patient's daughter has concerns about patient not progressing well and is depending too much on staff to do things. Daughter would likes staff to encourage patient to do more things for herself, and would like patient to be walked to the bathroom instead of using the bsc and wipe herself after using the restroom. She would also like her to be on a two hour toileting schedule and for her dilaudid to be decreased.
--- NOTE | 2017-07-04 18:05 | NURSING ---
At 1500, Resident requested BSC to be placed by the bed to toilet because she would not make it to the bathroom in time and void on the floor. She waited until the last minute to request assistance. A TRAVEL FREIGHT AND PASSENGER AGENT had been in her room twice only moments before she turned her call light on. She is giving reasons why she needs the BSC placed by the bed but the reasons changed from urgency to a fear of someone leaving her too long. She is unable to give any description of any staff member leaving her. Plan is to toilet q2h and someone to stay close by. A better fitting BSC was placed over the toilet so she will be more comfortable.
--- NOTE | 2017-07-04 18:58 | NURSING ---
NO to decrease dilaudid to 2mg PO [id number] PRN and make ES tylenol routine [id number], patient agreeable to changes.
[2017-07-04] MEDS: HYDROmorphone 2 MG TABLET PO (20:00)
[2017-07-04] MEDS: Acetaminophen 500 MG Tablet 1000 MG PO (20:28)
[2017-07-04] MEDS: Sertraline 50 MG Tablet PO (20:28)
[2017-07-04] MEDS: Pravastatin 40 MG Tablet PO (20:33)
[2017-07-04 21:00] VITALS: PULSE 76; RESP 18; O2SAT 96
[2017-07-05] MEDS: HYDROmorphone 2 MG TABLET PO ×3 (06:27→21:57)
[2017-07-05] MEDS: Senna/Docusate Sodium 1 Tablet 2 TABLET PO (06:28)
[2017-07-05] MEDS: Pantoprazole Sodium 20 MG Tablet PO (06:28)
[2017-07-05] MEDS: Topiramate 25 MG Tablet PO ×2 (06:28→17:10)
[2017-07-05] MEDS: Enoxaparin 40 MG/0.4 ML Syringe SC (06:29)
[2017-07-05] MEDS: Cephalexin 500 MG Capsule PO ×2 (06:29→17:10)
[2017-07-05] MEDS: tiZANidine HCl 2 MG Tablet 4 MG PO (06:29)
[2017-07-05] MEDS: Polyethylene Glycol 3350 17 GM PACKET PO (06:29)
[2017-07-05] MEDS: Nystatin Powder 15gm Bottle 1 APPLIC TOPICAL ×2 (06:30→20:59)
[2017-07-05] MEDS: Lisinopril 20 MG Tablet PO (06:30)
[2017-07-05] MEDS: HYDROCHLOROTHIAZIDE 12.5 MG CAPSULE PO (06:30)
[2017-07-05] MEDS: Menthol/Lanolin/Calamine/Znox 113 GM Tube 1 APPLIC TOPICAL ×3 (06:31→20:59)
[2017-07-05] MEDS: Doxycycline 100 MG CAPSULE PO ×2 (06:31→17:10)
[2017-07-05] MEDS: Lidocaine 5% Patch 1 PATCH TOPICAL (06:34)
[2017-07-05] MEDS: Acetaminophen 500 MG Tablet 1000 MG PO ×3 (06:34→21:00)
--- NOTE | 2017-07-05 06:42 | NURSING ---
Pt requesting prn dilaudid 2mg with scheduled tylenol 1000mg this morning for c/o pain in hip and knee rating at 6/10. Assisted to bathroom, repositioned for comfort, no other requests, no complaints. Continuing to monitor, RN aware.
[2017-07-05] MEDS: buPROPion (SR) 150 MG Tablet.SA PO ×2 (08:31→17:10)
[2017-07-05 10:00] VITALS: PULSE 70; RESP 18; O2SAT 96
--- NOTE | 2017-07-05 10:38 | NURSING ---
VARIFIED BAILEY PATCH TO LEFT DELT.
[2017-07-05] MEDS: Ondansetron ODT 4 MG Tablet PO ×2 (13:01→22:15)
--- NOTE | 2017-07-05 13:03 | NURSING ---
PT BRING UP SPUTUM, PT STATED SHE FEELS SICK TO STOMACH. PRN ZOFRAN GIVEN. REPORTED TO BILLIE BLACK
[2017-07-05 16:00] VITALS: BP 118/58; PULSE 66; RESP 18; TEMP 35.9; O2SAT 93
[2017-07-05] MEDS: Pravastatin 40 MG Tablet PO (21:00)
[2017-07-05] MEDS: Sertraline 50 MG Tablet PO (21:00)
[2017-07-06] MEDS: HYDROmorphone 2 MG TABLET PO ×3 (02:19→21:39)
--- NOTE | 2017-07-06 02:44 | NURSING ---
Addendum entered by Margy High 07/06/17 09:40: Dr. Roldan in to see patient this morning, feels right hip is improved and reassured patient. Will continue to monitor. Original Note: pt c/o that her knee hurts and feels the redness is worse. Pt informed she is on atb for [address] pitts to see her. Note left for .
[2017-07-06] MEDS: Polyethylene Glycol 3350 17 GM PACKET PO (05:19)
[2017-07-06] MEDS: Senna/Docusate Sodium 1 Tablet 2 TABLET PO (05:19)
[2017-07-06] MEDS: tiZANidine HCl 2 MG Tablet 4 MG PO (05:19)
[2017-07-06] MEDS: Pantoprazole Sodium 20 MG Tablet PO (05:19)
[2017-07-06] MEDS: Acetaminophen 500 MG Tablet 1000 MG PO ×3 (05:20→21:05)
[2017-07-06] MEDS: Topiramate 25 MG Tablet PO ×2 (05:21→17:07)
[2017-07-06] MEDS: HYDROCHLOROTHIAZIDE 12.5 MG CAPSULE PO (05:21)
[2017-07-06] MEDS: Cephalexin 500 MG Capsule PO ×2 (05:21→17:07)
[2017-07-06] MEDS: Nystatin Powder 15gm Bottle 1 APPLIC TOPICAL ×2 (05:21→17:08)
[2017-07-06] MEDS: Doxycycline 100 MG CAPSULE PO ×2 (05:21→17:07)
[2017-07-06] MEDS: Enoxaparin 40 MG/0.4 ML Syringe SC (05:21)
[2017-07-06] MEDS: Lidocaine 5% Patch 1 PATCH TOPICAL (05:22)
[2017-07-06] MEDS: Lisinopril 20 MG Tablet PO (05:23)
[2017-07-06 05:26] VITALS: BP 119/71; PULSE 77; RESP 18; O2SAT 97
[2017-07-06] MEDS: Menthol/Lanolin/Calamine/Znox 113 GM Tube 1 APPLIC TOPICAL ×3 (05:26→20:54)
[2017-07-06] MEDS: buPROPion (SR) 150 MG Tablet.SA PO ×2 (08:55→17:07)
[2017-07-06 14:20] VITALS: BP 102/68; PULSE 73; RESP 18; TEMP 36.7; O2SAT 96
[2017-07-06] MEDS: Verapamil SR 240 MG Tablet PO (20:53)
[2017-07-06] MEDS: Pravastatin 40 MG Tablet PO (20:55)
[2017-07-06] MEDS: Sertraline 50 MG Tablet PO (20:55)
[2017-07-06] MEDS: Ondansetron ODT 4 MG Tablet PO (22:48)
[2017-07-07] MEDS: HYDROmorphone 2 MG TABLET PO ×4 (03:55→23:02)
[2017-07-07] MEDS: Menthol/Lanolin/Calamine/Znox 113 GM Tube 1 APPLIC TOPICAL ×3 (06:20→21:38)
[2017-07-07] MEDS: Lidocaine 5% Patch 1 PATCH TOPICAL (06:20)
[2017-07-07] MEDS: HYDROCHLOROTHIAZIDE 12.5 MG CAPSULE PO (06:22)
[2017-07-07] MEDS: Cephalexin 500 MG Capsule PO ×2 (06:22→17:23)
[2017-07-07] MEDS: Doxycycline 100 MG CAPSULE PO ×2 (06:22→17:24)
[2017-07-07] MEDS: Pantoprazole Sodium 20 MG Tablet PO (06:24)
[2017-07-07] MEDS: Topiramate 25 MG Tablet PO ×2 (06:24→17:23)
[2017-07-07] MEDS: Enoxaparin 40 MG/0.4 ML Syringe SC (06:24)
[2017-07-07] MEDS: Senna/Docusate Sodium 1 Tablet 2 TABLET PO ×2 (06:25→17:23)
[2017-07-07] MEDS: Nystatin Powder 15gm Bottle 1 APPLIC TOPICAL ×2 (06:25→21:37)
[2017-07-07] MEDS: tiZANidine HCl 2 MG Tablet 4 MG PO (06:26)
[2017-07-07 06:45] VITALS: PULSE 68; RESP 18; O2SAT 95
[2017-07-07] MEDS: buPROPion (SR) 150 MG Tablet.SA PO ×2 (08:18→17:24)
--- NOTE | 2017-07-07 15:04 | CASEMGMT ---
Brief interview for mental status (BIMS) and resident mood interview completed on this day. BIMS score 15/15. PHQ-9 score 03/27.
--- NOTE | 2017-07-07 15:27 | NURSING ---
pt c/o nausea with schedule tylenol, requesting something else. New order for oxyir prn moderate pain. DC Tylenol
[2017-07-07 15:52] VITALS: BP 133/58; PULSE 77; RESP 18; TEMP 37.1; O2SAT 97
[2017-07-07] MEDS: Sertraline 50 MG Tablet PO (21:35)
[2017-07-07] MEDS: Verapamil SR 240 MG Tablet PO (21:37)
[2017-07-07] MEDS: Pravastatin 40 MG Tablet PO (21:39)
[2017-07-08] MEDS: HYDROmorphone 2 MG TABLET PO ×2 (05:18→10:37)
[2017-07-08] MEDS: Lisinopril 20 MG Tablet PO (05:23)
[2017-07-08] MEDS: tiZANidine HCl 2 MG Tablet 4 MG PO (05:23)
[2017-07-08] MEDS: HYDROCHLOROTHIAZIDE 12.5 MG CAPSULE PO (05:23)
[2017-07-08] MEDS: Cephalexin 500 MG Capsule PO ×2 (05:24→17:43)
[2017-07-08] MEDS: Topiramate 25 MG Tablet PO ×2 (05:24→17:42)
[2017-07-08] MEDS: Doxycycline 100 MG CAPSULE PO ×2 (05:24→17:43)
[2017-07-08] MEDS: Menthol/Lanolin/Calamine/Znox 113 GM Tube 1 APPLIC TOPICAL ×3 (05:24→20:30)
[2017-07-08] MEDS: Lidocaine 5% Patch 1 PATCH TOPICAL (05:25)
[2017-07-08] MEDS: Nystatin Powder 15gm Bottle 1 APPLIC TOPICAL ×2 (05:25→17:46)
[2017-07-08] MEDS: Enoxaparin 40 MG/0.4 ML Syringe SC (05:26)
[2017-07-08] MEDS: Pantoprazole Sodium 20 MG Tablet PO ×2 (05:26→17:42)
[2017-07-08] MEDS: Senna/Docusate Sodium 1 Tablet 2 TABLET PO ×2 (05:27→17:43)
[2017-07-08 05:30] VITALS: PULSE 74; RESP 16; O2SAT 94
[2017-07-08] MEDS: buPROPion (SR) 150 MG Tablet.SA PO ×2 (07:53→17:44)
--- NOTE | 2017-07-08 13:19 | MDS.RN ---
Information for the mds was obtained from review of the clinical record, interview of resident, staff, and direct observation of resident's care .
[2017-07-08] MEDS: oxyCODONE 5 MG Tablet 10 MG PO ×2 (13:46→20:28)
--- NOTE | 2017-07-08 13:50 | MDS.RN ---
Pain interview for 07/09/17 completed.
[2017-07-08 15:15] VITALS: BP 94/64; PULSE 78; RESP 18; TEMP 36.4; O2SAT 95
[2017-07-08 20:27] VITALS: BP 97/42; PULSE 75; RESP 16; O2SAT 98
[2017-07-08] MEDS: Pravastatin 40 MG Tablet PO (20:29)
[2017-07-08] MEDS: Sertraline 50 MG Tablet PO (20:29)
[2017-07-09] MEDS: oxyCODONE 5 MG Tablet 10 MG PO ×2 (02:36→13:24)
[2017-07-09] MEDS: Topiramate 25 MG Tablet PO ×2 (06:00→17:47)
[2017-07-09] MEDS: HYDROmorphone 2 MG TABLET PO ×2 (06:00→19:36)
[2017-07-09] MEDS: tiZANidine HCl 2 MG Tablet 4 MG PO (06:00)
[2017-07-09] MEDS: Lisinopril 20 MG Tablet PO (06:00)
[2017-07-09] MEDS: Doxycycline 100 MG CAPSULE PO ×2 (06:01→17:47)
[2017-07-09] MEDS: Cephalexin 500 MG Capsule PO ×2 (06:01→17:47)
[2017-07-09] MEDS: Senna/Docusate Sodium 1 Tablet 2 TABLET PO ×2 (06:01→17:47)
[2017-07-09] MEDS: Enoxaparin 40 MG/0.4 ML Syringe SC (06:02)
[2017-07-09] MEDS: Lidocaine 5% Patch 1 PATCH TOPICAL (06:02)
[2017-07-09] MEDS: Nystatin Powder 15gm Bottle 1 APPLIC TOPICAL ×2 (06:04→19:38)
[2017-07-09] MEDS: HYDROCHLOROTHIAZIDE 12.5 MG CAPSULE PO (06:06)
[2017-07-09 06:14] VITALS: BP 107/52; PULSE 81
[2017-07-09] MEDS: buPROPion (SR) 150 MG Tablet.SA PO ×2 (08:59→17:47)
[2017-07-09 10:00] VITALS: PULSE 72; RESP 18; O2SAT 96
--- NOTE | 2017-07-09 11:38 | NURSING ---
NICOTINE PATCH VARIFIED TO PT RIGHT DELT.
[2017-07-09] MEDS: Menthol/Lanolin/Calamine/Znox 113 GM Tube 1 APPLIC TOPICAL ×2 (13:28→19:37)
[2017-07-09 15:39] VITALS: BP 118/64; PULSE 80; RESP 18; TEMP 36.8; O2SAT 94
--- NOTE | 2017-07-09 19:41 | NURSING ---
Pt requesting pain medication stating I overdid it today, I walked by myself all over the place. I'd like the dilaudid now and the oxy before I go to bed Spoke with pt regarding pain which she rated at 6-7/10. Repositioned for comfort. Continuing to monitor.
[2017-07-09] MEDS: Sertraline 50 MG Tablet PO (21:18)
[2017-07-09] MEDS: Pravastatin 40 MG Tablet PO (21:18)
--- NOTE | 2017-07-09 21:19 | NURSING ---
Sp02 reading 83-86% ra, all fingers checked, pt taking deep breaths in through nose and out through mouth. Denied any pain or discomfort, past use of oxygen. Spoke with Daiana RN who agreed to putting pt on NC, 1L oxygen. After several minutes pt reading 92-97% on 1L. No complaints offered, continuing to monitor.
[2017-07-10] MEDS: oxyCODONE 5 MG Tablet 10 MG PO ×2 (00:09→05:04)
[2017-07-10] MEDS: HYDROmorphone 2 MG TABLET PO ×4 (01:34→23:50)
[2017-07-10] MEDS: Menthol/Lanolin/Calamine/Znox 113 GM Tube 1 APPLIC TOPICAL ×2 (05:04→21:10)
[2017-07-10] MEDS: Cephalexin 500 MG Capsule PO ×2 (05:05→16:29)
[2017-07-10] MEDS: HYDROCHLOROTHIAZIDE 12.5 MG CAPSULE PO (05:05)
[2017-07-10] MEDS: Doxycycline 100 MG CAPSULE PO ×2 (05:05→16:29)
[2017-07-10] MEDS: Nystatin Powder 15gm Bottle 1 APPLIC TOPICAL ×2 (05:05→16:30)
[2017-07-10] MEDS: Lidocaine 5% Patch 1 PATCH TOPICAL (05:05)
[2017-07-10] MEDS: Enoxaparin 40 MG/0.4 ML Syringe SC (05:05)
[2017-07-10] MEDS: Pantoprazole Sodium 20 MG Tablet PO (05:06)
[2017-07-10] MEDS: Senna/Docusate Sodium 1 Tablet 2 TABLET PO (05:06)
[2017-07-10] MEDS: Lisinopril 20 MG Tablet PO (05:07)
[2017-07-10] MEDS: Topiramate 25 MG Tablet PO ×2 (05:07→16:29)
[2017-07-10] MEDS: tiZANidine HCl 2 MG Tablet 4 MG PO (05:07)
[2017-07-10 07:17] LABS: Anion Gap 8 (5-15); BUN 36 mg/dL (7-18); BUN/Creat Ratio 32.7 RATIO (10-20); Chloride 106 mmol/L (98-107); EST Glomerular Filtration Rate 53 mL/min (>60); Est Glom Filt Rate - Afr Amer 64 mL/min (>60); Estimated Creatinine Clearance 42.18 ml/min; Glucose 87 mg/dL (74-106); Potassium 3.7 mmol/L (3.5-5.1); Sodium Level 140 mmol/L (136-145)
[2017-07-10 07:38] LABS: Absolute Lymphocyte Count 2.47 X10^3/ul (0.83-4.51); Basophil# 0.07 X10^3/uL; Basophil% 0.7 % (0-1); Eosinophil# 0.43 X10^3/uL; Eosinophils% 4.5 % (0-5); Hematocrit 34.9 % (37-47); Hemoglobin 10.9 g/dl (12.0-15.0); Lymphocyte # 2.47 X10^3/ul (4.0); Lymphocyte % 26.1 % (19-41); Mean Corp Hgb Conc 31.2 g/gl (32-36); Mean Corpuscular Hgb 29.6 pg (27.0-32.0); Mean Corpuscular Volume 94.8 fL (81-99); Mean Platelet Vol. 9.3 fl (6.2-12.0); Monocyte# 1.42 X10^3/uL; Neutrophil % 52.9 % (47-70); Platelet Count 433 K/mm3 (150-450); RBC Distribution Width CV 14.7 % (11.6-14.6); RBC Distribution Width SD 50.5 fl (35.1-43.9); Red Blood Count 3.68 M/mm3 (4.2-5.4); White Blood Count 9.5 K/mm3 (4.4-11.0)
[2017-07-10 07:41] LABS: POSITIVE COUNT NO; POSITIVE DIFFERENTIAL NO; POSITIVE MORPHOLOGY NO
[2017-07-10] MEDS: buPROPion (SR) 150 MG Tablet.SA PO ×2 (08:33→16:29)
[2017-07-10 10:00] VITALS: PULSE 70; RESP 18; O2SAT 97
[2017-07-10 15:27] VITALS: BP 118/73; PULSE 78; RESP 18; TEMP 37.1; O2SAT 94
--- NOTE | 2017-07-10 17:46 | NURSING ---
PT HAD EMESIS OF UNDIGESTED FOOD THIS EVENING BEFORE SUPPER. DR VANG NOTIFIED, C/O NAUSEA, NEW ORDER FOR PRN ZOFRAN, D/C KEFLEX AND DOXY. GET KUB AND UA BY ST [facility]. PT UPDATED ON ALL.
--- NOTE | 2017-07-10 17:50 | RAD_ITS ---
STUDY: X-RAY - ABDOMEN/PELVIS REASON FOR EXAM: Female, 66 years old. Nausea and vomiting. TECHNIQUE: 3 AP images of the abdomen COMPARISON: None. FINDINGS: Normal visualized lung bases. There is an unremarkable bowel gas pattern. There is no demonstrated free abdominal air. Normal soft tissue structures. There are diffuse degenerative changes of the visualized lumbar spine. There is a right hip arthroplasty. There are degenerative changes of the left hip. RAD/Abdomen Single View IMPRESSION: Nonspecific bowel gas pattern. Electronically Signed: Angelika Elizabeth MD at 19:25 EDT Tel , Service support ,
[2017-07-10] MEDS: Ondansetron ODT 4 MG Tablet 8 MG PO (18:16)
[2017-07-10] MEDS: Verapamil SR 240 MG Tablet PO (21:11)
[2017-07-10] MEDS: Sertraline 50 MG Tablet PO (21:11)
[2017-07-10] MEDS: Pravastatin 40 MG Tablet PO (21:12)
[2017-07-10 22:48] LABS: Bacteria 0 SEEN /hpf (None Seen); Mucous, Urine 0 SEEN /hpf (<or=2+); Red Blood Cells-Urine 0 SEEN /hpf (0-5); White Blood Cells 0 SEEN /hpf (0-5)
[2017-07-10 22:54] LABS: Color, Urine Yellow (Yellow); Glucose, Dipstick Normal (Normal); Ketone-Dipstick Negative (Negative); Leukocyte Esterase-Dipstick Negative /ul (Negative); Nitrite-Dipstick Negative (Negative); Occult Blood-Urine 10 /ul (Negative); Protein-Dipstick Negative (Negative); Urine Bilirubin Dipstick Negative (Negative); Urine Clarity Clear (Clear); Urine Urobilinogen Normal (Normal); Urine pH 6.5 (5.0 - 8.0)
[2017-07-10 23:01] LABS: Squamous Epithelial Cells - UA 0-5 SEEN /hpf (5-10)
[2017-07-11] MEDS: oxyCODONE 5 MG Tablet 10 MG PO ×2 (03:28→17:09)
[2017-07-11 06:30] VITALS: BP 107/77; PULSE 77; RESP 18; TEMP 36.6; O2SAT 96
[2017-07-11] MEDS: Menthol/Lanolin/Calamine/Znox 113 GM Tube 1 APPLIC TOPICAL ×2 (06:31→21:42)
[2017-07-11] MEDS: Nystatin Powder 15gm Bottle 1 APPLIC TOPICAL ×2 (06:32→21:41)
[2017-07-11] MEDS: Enoxaparin 40 MG/0.4 ML Syringe SC (06:33)
[2017-07-11] MEDS: Topiramate 25 MG Tablet PO ×2 (06:33→17:03)
[2017-07-11] MEDS: Lidocaine 5% Patch 1 PATCH TOPICAL (06:33)
[2017-07-11] MEDS: Pantoprazole Sodium 20 MG Tablet PO (06:34)
[2017-07-11] MEDS: HYDROCHLOROTHIAZIDE 12.5 MG CAPSULE PO (06:34)
[2017-07-11] MEDS: Senna/Docusate Sodium 1 Tablet 2 TABLET PO ×2 (06:34→17:03)
[2017-07-11] MEDS: tiZANidine HCl 2 MG Tablet 4 MG PO (06:35)
[2017-07-11] MEDS: Lisinopril 20 MG Tablet PO (06:36)
[2017-07-11] MEDS: buPROPion (SR) 150 MG Tablet.SA PO ×2 (08:04→17:03)
[2017-07-11 15:32] VITALS: BP 111/74; PULSE 80; RESP 20; TEMP 36.4; O2SAT 96
[2017-07-11] MEDS: Pravastatin 40 MG Tablet PO (21:41)
[2017-07-11] MEDS: Sertraline 50 MG Tablet PO (21:41)
[2017-07-12] MEDS: oxyCODONE 5 MG Tablet 10 MG PO ×4 (00:47→21:20)
[2017-07-12] MEDS: Ondansetron ODT 4 MG Tablet 8 MG PO ×2 (00:50→21:20)
[2017-07-12] MEDS: Enoxaparin 40 MG/0.4 ML Syringe SC (06:11)
[2017-07-12] MEDS: Lidocaine 5% Patch 1 PATCH TOPICAL (06:11)
[2017-07-12] MEDS: Pantoprazole Sodium 20 MG Tablet PO (06:12)
[2017-07-12] MEDS: HYDROCHLOROTHIAZIDE 12.5 MG CAPSULE PO (06:12)
[2017-07-12] MEDS: Topiramate 25 MG Tablet PO ×2 (06:13→17:00)
[2017-07-12] MEDS: Lisinopril 20 MG Tablet PO (06:13)
[2017-07-12] MEDS: Menthol/Lanolin/Calamine/Znox 113 GM Tube 1 APPLIC TOPICAL ×2 (06:13→20:33)
[2017-07-12] MEDS: Nystatin Powder 15gm Bottle 1 APPLIC TOPICAL ×2 (06:14→19:21)
[2017-07-12 07:00] VITALS: PULSE 73; RESP 16; O2SAT 97
[2017-07-12] MEDS: tiZANidine HCl 2 MG Tablet 4 MG PO (07:17)
[2017-07-12] MEDS: buPROPion (SR) 150 MG Tablet.SA PO ×2 (08:26→16:55)
--- NOTE | 2017-07-12 08:28 | NURSING ---
THIS NURSE WALKED INTO PT ROOM AND FOOD PT SLEEPING AND SNORING WITH FOOD IN HER MOUTH. GOT PT AWAKE AND REMOVED FOOD.TEACHING TO PT ABOUT EATING AND SLEEPING AT SAME TIME. PT VOICED SHE UNDER STOOD. NO COMPLAINTS NOTED. REPORTED TO BILLIE JONES
[2017-07-12 15:43] VITALS: BP 119/68; PULSE 76; RESP 22; TEMP 36.4; O2SAT 95
[2017-07-12] MEDS: Senna/Docusate Sodium 1 Tablet 2 TABLET PO (16:56)
--- NOTE | 2017-07-12 17:28 | NURSING ---
VERIFIED NICOTINE PATCH TO LEFT DELT.
[2017-07-12] MEDS: HYDROmorphone 2 MG TABLET PO (19:22)
[2017-07-12] MEDS: Sertraline 50 MG Tablet PO (20:34)
[2017-07-12] MEDS: Pravastatin 40 MG Tablet PO (20:34)
[2017-07-13] MEDS: oxyCODONE 5 MG Tablet 10 MG PO ×4 (02:51→21:35)
[2017-07-13] MEDS: Menthol/Lanolin/Calamine/Znox 113 GM Tube 1 APPLIC TOPICAL ×3 (05:37→21:36)
[2017-07-13] MEDS: Pantoprazole Sodium 20 MG Tablet PO (05:38)
[2017-07-13] MEDS: Topiramate 25 MG Tablet PO ×2 (05:38→17:34)
[2017-07-13] MEDS: Senna/Docusate Sodium 1 Tablet 2 TABLET PO ×2 (05:38→17:34)
[2017-07-13] MEDS: Enoxaparin 40 MG/0.4 ML Syringe SC (05:40)
[2017-07-13] MEDS: HYDROCHLOROTHIAZIDE 12.5 MG CAPSULE PO (05:40)
[2017-07-13] MEDS: Lisinopril 20 MG Tablet PO (05:40)
[2017-07-13] MEDS: Nystatin Powder 15gm Bottle 1 APPLIC TOPICAL ×2 (05:40→17:35)
[2017-07-13] MEDS: Lidocaine 5% Patch 1 PATCH TOPICAL (05:41)
[2017-07-13] MEDS: tiZANidine HCl 2 MG Tablet 4 MG PO (05:41)
[2017-07-13] MEDS: buPROPion (SR) 150 MG Tablet.SA PO ×2 (08:23→17:34)
[2017-07-13 15:21] VITALS: BP 125/68; PULSE 82; RESP 18; TEMP 36.4; O2SAT 100
--- NOTE | 2017-07-13 16:13 | CASEMGMT ---
Social Work Spoke with resident and resident daughter in room. This social worker psychiatric communicating that resident discharge date has been set for 07/21/17. Resident is reluctant but agreeable to discharge date. Resident educated on resident rights to an appeal and signing NOMNOC at this time. Resident given copy of NOMNOC. Resident plans to discharge home with daughter at time of discharge. This social worker psychiatric communicating to resident that physical therapy is recommending for resident to have continued therapy through outpatient therapy services. Resident is unsure about doing outpatient therapy but will think about recommendation and this social worker psychiatric will touch back with resident on resident decision. Support given. Will continue to follow. Julia MILLAN, PATTERN STORAGE CLERK
[2017-07-13 20:22] VITALS: PULSE 76; RESP 20; O2SAT 98
[2017-07-13] MEDS: HYDROmorphone 2 MG TABLET PO (20:23)
--- NOTE | 2017-07-13 21:35 | PCM.DC ---
- Discharge Diagnoses Current Active Problems: Current Active and Chronic Problems Osteoarthritis of right hip (Chronic) Anxiety (Chronic) Hyperlipidemia (Chronic) Tobacco abuse (Chronic) Chronic obstructive pulmonary disease (Chronic) Lumbar disc disease (Chronic) Obesity (Chronic) Depression (Chronic) Chronic kidney disease (Chronic) Vertigo (Chronic) You will use the following diet at home:: No restrictions, Regular Your food should be the consistency of: Regular Your liquids should be the consistency of: Regular/Thin Discharge Activity: Return to Normal Activity, May Shower, Use Walker Weight Bearing Status: Weight bearing as tolerated Call your doctor if you observe: Fever of 101 or Higher, Inability to urinate, Inability to have a bowel movement, Shortness of breath, Chest pain, Uncontrolled pain Allergies/Adverse Reactions: Allergies ibuprofen Adverse Reaction (Verified 07/31/13 23:28) Other metronidazole [From Flagyl] Adverse Reaction (Verified 07/31/13 23:28) Swelling Medications to take at Discharge Omeprazole [Prilosec] 20 mg PO DAILY 07/31/13 Sertraline HCl [Zoloft] 50 mg PO QHS 07/31/13 Albuterol Inhaler [Ventolin Hfa] 2 puff INHALATION Q4H PRN PRN 06/25/17 HYDROmorphone tablet [Dilaudid] 1 - 2 tab PO Q4H PRN PRN 06/25/17 Lisinopril/Hydrochlorothiazide [Zestoretic 20-12.5 mg Tablet] 1 each PO DAILY 06/25/17 Pravastatin [Pravachol] 40 mg PO QHS 06/25/17 Sennosides [Senna] 8.6 mg PO DAILY 06/25/17 Tizanidine HCl 4 mg PO DAILY 06/25/17 Topiramate [Topamax] 25 mg PO BID 06/25/17 Verapamil HCl [Verapamil Sr] 270 mg PO DAILY 06/25/17 buPROPion SR [Wellbutrin SR (150mg tablets)] 150 mg PO BID 06/25/17 HYDROmorphone tablet [Dilaudid] 2 mg PO Q4H PRN PRN #42 tablet 07/13/17 Lidocaine [Lidoderm] 1 patch TOPICAL DAILY #30 adh..patch 07/13/17 Menthol/Lanolin/Calamine/Znox [Calmoseptine Ointment] 1 applic TOPICAL TID tube 07/13/17 Nicotine [Nicoderm Cq] 7 mg TRANSDERM. DAILY #30 patch 07/13/17 Nystatin Powder [Mycostatin Powder] 1 applic TOPICAL BID bottle 07/13/17 Ondansetron [Zofran Odt] 8 mg PO Q8H PRN PRN #30 tab 07/13/17 Oxycodone [Oxyir] 10 mg PO Q4H PRN PRN #30 tablet 07/13/17 Polyethylene Glycol 3350 [Miralax] 17 gm PO DAILY #30 packet 07/13/17 Senna/Docusate Sodium [Senokot-S] 2 tab PO BID #120 tab 07/13/17 Tizanidine HCl [Zanaflex] 4 mg PO DAILY tablet 07/13/17 The following prescriptions were given: HYDROmorphone tablet [Dilaudid] 2 mg PO Q4H PRN PRN #42 tablet PRN Reason: Severe Pain (6-10/10) Oxycodone [Oxyir] 10 mg PO Q4H PRN PRN #30 tablet PRN Reason: Moderate Pain (4-5/10) Ondansetron [Zofran Odt] 8 mg PO Q8H PRN PRN #30 tab PRN Reason: NAUSEA/VOMITING Lidocaine [Lidoderm] 1 patch TOPICAL DAILY #30 adh..patch Nicotine [Nicoderm Cq] 7 mg TRANSDERM. DAILY #30 patch Polyethylene Glycol 3350 [Miralax] 17 gm PO DAILY #30 packet Senna/Docusate Sodium [Senokot-S] 2 tab PO BID #120 tab Primary Care Physician: Maxim Tapia MD [Primary Care Provider] - Please follow up with your Primary Care Physician in: 1 week. Please Follow Up With: Polo Holly When: PA Proposed Discharge Date: 07/21/17
[2017-07-13] MEDS: Pravastatin 40 MG Tablet PO (21:36)
[2017-07-13] MEDS: Sertraline 50 MG Tablet PO (21:37)
--- NOTE | 2017-07-13 21:37 | PCM.DC.SUM ---
Discharge Date and Diagnosis Date of Admission: 06/25/17 Date of Discharge: 07/21/17 - Secondary Discharge Diagnosis Chronic Problems Osteoarthritis of right hip (Chronic) Anxiety (Chronic) Hyperlipidemia (Chronic) Tobacco abuse (Chronic) Chronic obstructive pulmonary disease (Chronic) Lumbar disc disease (Chronic) Obesity (Chronic) Depression (Chronic) Chronic kidney disease (Chronic) Vertigo (Chronic) Tobacco use disorder (Chronic) Hematemesis (Chronic) HTN (hypertension) (Chronic) Esophageal reflux (Chronic) Depressive disorder (Chronic) Hospital Course and Treatment Imaging Results: 06/25/17 20:13 Diet: Regular Diet Clinical Impression(s) from Imaging Studies KUB X-Ray 07/10/17 17:50 IMPRESSION: Nonspecific bowel gas pattern. Electronically Signed: Angelika Elizabeth MD at 19:25 EDT Tel , Service support , Operations: total hip replacement - Right. Procedures: None Summary of Care Provided: The patient is a 66 year old Female with below past medical history hospitalized for right total hip replacement 06/23/2017, admitted to TCU with debility, here for rehabilitation, strengthening, prior to discharge home alone. On TCU, resident developed cellulitis surrounding incision, treated with Keflex, Doxycycline, resolved. Discharge home with daughter, and outpatient physical therapy. Consider referral to 180 for opioid dependence. Discharge Diet: No Restrictions Discharge Activity: Return to Normal Activity, May Shower, Use Walker Weight Bearing Status: Weight bearing as tolerated Call your doctor if you observe: Fever of 101 or Higher, Inability to urinate, Inability to have a bowel movement, Shortness of breath, Chest pain, Uncontrolled pain Home Medications: Medications to take at Discharge Omeprazole [Prilosec] 20 mg PO DAILY 07/31/13 Sertraline HCl [Zoloft] 50 mg PO QHS 07/31/13 Albuterol Inhaler [Ventolin Hfa] 2 puff INHALATION Q4H PRN PRN 06/25/17 HYDROmorphone tablet [Dilaudid] 1 - 2 tab PO Q4H PRN PRN 06/25/17 Lisinopril/Hydrochlorothiazide [Zestoretic 20-12.5 mg Tablet] 1 each PO DAILY 06/25/17 Pravastatin [Pravachol] 40 mg PO QHS 06/25/17 Sennosides [Senna] 8.6 mg PO DAILY 06/25/17 Tizanidine HCl 4 mg PO DAILY 06/25/17 Topiramate [Topamax] 25 mg PO BID 06/25/17 Verapamil HCl [Verapamil Sr] 270 mg PO DAILY 06/25/17 buPROPion SR [Wellbutrin SR (150mg tablets)] 150 mg PO BID 06/25/17 HYDROmorphone tablet [Dilaudid] 2 mg PO Q4H PRN PRN #42 tablet 07/13/17 Lidocaine [Lidoderm] 1 patch TOPICAL DAILY #30 adh..patch 07/13/17 Menthol/Lanolin/Calamine/Znox [Calmoseptine Ointment] 1 applic TOPICAL TID tube 07/13/17 Nicotine [Nicoderm Cq] 7 mg TRANSDERM. DAILY #30 patch 07/13/17 Nystatin Powder [Mycostatin Powder] 1 applic TOPICAL BID bottle 07/13/17 Ondansetron [Zofran Odt] 8 mg PO Q8H PRN PRN #30 tab 07/13/17 Oxycodone [Oxyir] 10 mg PO Q4H PRN PRN #30 tablet 07/13/17 Polyethylene Glycol 3350 [Miralax] 17 gm PO DAILY #30 packet 07/13/17 Senna/Docusate Sodium [Senokot-S] 2 tab PO BID #120 tab 07/13/17 Tizanidine HCl [Zanaflex] 4 mg PO DAILY tablet 07/13/17 Following Prescrptions Were Given to Patient: HYDROmorphone tablet [Dilaudid] 2 mg PO Q4H PRN PRN #42 tablet PRN Reason: Severe Pain (6-10/10) Oxycodone [Oxyir] 10 mg PO Q4H PRN PRN #30 tablet PRN Reason: Moderate Pain (4-5/10) Ondansetron [Zofran Odt] 8 mg PO Q8H PRN PRN #30 tab PRN Reason: NAUSEA/VOMITING Lidocaine [Lidoderm] 1 patch TOPICAL DAILY #30 adh..patch Nicotine [Nicoderm Cq] 7 mg TRANSDERM. DAILY #30 patch Polyethylene Glycol 3350 [Miralax] 17 gm PO DAILY #30 packet Senna/Docusate Sodium [Senokot-S] 2 tab PO BID #120 tab Primary Care Physician: Maxim Tapia MD [Primary Care Provider] - Please follow up with your Primary Care Physician in: 1 week. Please Follow Up With: Polo Holly When: PA Disposition: Home Minutes spent on discharge:: 35 Patient Condition:: Stable Medical Necessity - Tobacco Use Smoking Status: Current every day smoker Tobacco Use: Cigarettes Meaningful Use Info Meaningful Use Diagnoses (Choose all that apply): None applicable
--- NOTE | 2017-07-13 21:40 | DS.PCM_ITS ---
Discharge Date and Diagnosis Date of Admission: 06/25/17 Date of Discharge: 07/21/17 - Secondary Discharge Diagnosis Chronic Problems Osteoarthritis of right hip (Chronic) Anxiety (Chronic) Hyperlipidemia (Chronic) Tobacco abuse (Chronic) Chronic obstructive pulmonary disease (Chronic) Lumbar disc disease (Chronic) Obesity (Chronic) Depression (Chronic) Chronic kidney disease (Chronic) Vertigo (Chronic) Tobacco use disorder (Chronic) Hematemesis (Chronic) HTN (hypertension) (Chronic) Esophageal reflux (Chronic) Depressive disorder (Chronic) Hospital Course and Treatment Imaging Results: 06/25/17 20:13 Diet: Regular Diet Clinical Impression(s) from Imaging Studies KUB X-Ray 07/10/17 17:50 IMPRESSION: Nonspecific bowel gas pattern. Electronically Signed: Angelika Elizabeth MD at 19:25 EDT Tel , Service support , Operations: total hip replacement - Right. Procedures: None Summary of Care Provided: The patient is a 66 year old Female with below past medical history hospitalized for right total hip replacement 06/23/2017, admitted to TCU with debility, here for rehabilitation, strengthening, prior to discharge home alone. On TCU, resident developed cellulitis surrounding incision, treated with Keflex , Doxycycline, resolved. Discharge home with daughter, and outpatient physical therapy. Consider referral to 180 for opioid dependence. Discharge Diet: No Restrictions Discharge Activity: Return to Normal Activity, May Shower, Use Walker Weight Bearing Status: Weight bearing as tolerated Call your doctor if you observe: Fever of 101 or Higher, Inability to urinate, Inability to have a bowel movement, Shortness of breath, Chest pain, Uncontrolled pain Home Medications: Medications to take at Discharge Omeprazole [Prilosec] 20 mg PO DAILY 07/31/13 Sertraline HCl [Zoloft] 50 mg PO QHS 07/31/13 Albuterol Inhaler [Ventolin Hfa] 2 puff INHALATION Q4H PRN PRN 06/25/17 HYDROmorphone tablet [Dilaudid] 1 - 2 tab PO Q4H PRN PRN 06/25/17 Lisinopril/Hydrochlorothiazide [Zestoretic 20-12.5 mg Tablet] 1 each PO DAILY Pravastatin [Pravachol] 40 mg PO QHS 06/25/17 Sennosides [Senna] 8.6 mg PO DAILY 06/25/17 Tizanidine HCl 4 mg PO DAILY 06/25/17 Topiramate [Topamax] 25 mg PO BID 06/25/17 Verapamil HCl [Verapamil Sr] 270 mg PO DAILY 06/25/17 buPROPion SR [Wellbutrin SR (150mg tablets)] 150 mg PO BID 06/25/17 HYDROmorphone tablet [Dilaudid] 2 mg PO Q4H PRN PRN #42 tablet 07/13/17 Lidocaine [Lidoderm] 1 patch TOPICAL DAILY #30 adh..patch 07/13/17 Menthol/Lanolin/Calamine/Znox [Calmoseptine Ointment] 1 applic TOPICAL TID tube 07/13/17 Nicotine [Nicoderm Cq] 7 mg TRANSDERM. DAILY #30 patch 07/13/17 Nystatin Powder [Mycostatin Powder] 1 applic TOPICAL BID bottle 07/13/17 Ondansetron [Zofran Odt] 8 mg PO Q8H PRN PRN #30 tab 07/13/17 Oxycodone [Oxyir] 10 mg PO Q4H PRN PRN #30 tablet 07/13/17 Polyethylene Glycol 3350 [Miralax] 17 gm PO DAILY #30 packet 07/13/17 Senna/Docusate Sodium [Senokot-S] 2 tab PO BID #120 tab 07/13/17 Tizanidine HCl [Zanaflex] 4 mg PO DAILY tablet 07/13/17 Following Prescrptions Were Given to Patient: HYDROmorphone tablet [Dilaudid] 2 mg PO Q4H PRN PRN #42 tablet PRN Reason: Severe Pain (6-10/10) Oxycodone [Oxyir] 10 mg PO Q4H PRN PRN #30 tablet PRN Reason: Moderate Pain (4-5/10) Ondansetron [Zofran Odt] 8 mg PO Q8H PRN PRN #30 tab PRN Reason: NAUSEA/VOMITING Lidocaine [Lidoderm] 1 patch TOPICAL DAILY #30 adh..patch Nicotine [Nicoderm Cq] 7 mg TRANSDERM. DAILY #30 patch Polyethylene Glycol 3350 [Miralax] 17 gm PO DAILY #30 packet Senna/Docusate Sodium [Senokot-S] 2 tab PO BID #120 tab Primary Care Physician: Maxim Tapia MD [Primary Care Provider] - Please follow up with your Primary Care Physician in: 1 week. Please Follow Up With: Polo Holly When: PA Disposition: Home Minutes spent on discharge:: 35 Patient Condition:: Stable Medical Necessity - Tobacco Use Smoking Status: Current every day smoker Tobacco Use: Cigarettes Meaningful Use Info Meaningful Use Diagnoses (Choose all that apply): None applicable
[2017-07-14] MEDS: oxyCODONE 5 MG Tablet 10 MG PO ×3 (01:35→10:08)
--- NOTE | 2017-07-14 01:37 | NURSING ---
Pt used call light and asked for prn pain medication oxyir 10mg. Given, repositioned in bed for comfort. Pt still wearing prn oxygen at night on 1L. sp02 98%. Voiced interest in sleep study upon discharge. Assured pt this would be passed on . RN aware, continuing to monitor.
[2017-07-14] MEDS: HYDROmorphone 2 MG TABLET PO ×3 (04:32→19:56)
[2017-07-14] MEDS: Lidocaine 5% Patch 1 PATCH TOPICAL (05:08)
[2017-07-14] MEDS: Menthol/Lanolin/Calamine/Znox 113 GM Tube 1 APPLIC TOPICAL ×3 (05:08→20:03)
[2017-07-14] MEDS: HYDROCHLOROTHIAZIDE 12.5 MG CAPSULE PO (05:08)
[2017-07-14] MEDS: Topiramate 25 MG Tablet PO ×2 (05:09→17:13)
[2017-07-14] MEDS: Enoxaparin 40 MG/0.4 ML Syringe SC (05:09)
[2017-07-14] MEDS: Nystatin Powder 15gm Bottle 1 APPLIC TOPICAL ×2 (05:09→17:13)
[2017-07-14] MEDS: Senna/Docusate Sodium 1 Tablet 2 TABLET PO ×2 (05:09→17:13)
[2017-07-14] MEDS: Pantoprazole Sodium 20 MG Tablet PO (05:13)
[2017-07-14] MEDS: tiZANidine HCl 2 MG Tablet 4 MG PO (05:18)
[2017-07-14] MEDS: Lisinopril 20 MG Tablet PO (05:18)
--- NOTE | 2017-07-14 05:48 | NURSING ---
Pt requesting prn pain medication several times during night, appears anxious r/t upcoming d/c date and restless. Did not sleep much through night. Pleasant, alert and cooperative. Continuing to monitor, RN aware.
[2017-07-14 06:45] VITALS: PULSE 78; RESP 20; O2SAT 96
[2017-07-14] MEDS: buPROPion (SR) 150 MG Tablet.SA PO ×2 (08:37→17:13)
--- NOTE | 2017-07-14 12:33 | NURSING ---
BERYL, PHARMACIST FROM [facility] CALLED TO CLARIFY DILAUDID AND OXYIR SCRIPTS BY DR VANG. STATED PT IS BEING TREATED BY DR STOCKTON ON [place]. DR VANG NOTIFIED, NEW ORDER TO CANCEL DILAUDID & OXYIR, BERYL AWARE.
[2017-07-14 15:29] VITALS: BP 99/57; PULSE 72; RESP 18; TEMP 36.8; O2SAT 94
[2017-07-14] MEDS: Pravastatin 40 MG Tablet PO (20:03)
[2017-07-14] MEDS: Sertraline 50 MG Tablet PO (20:03)
--- NOTE | 2017-07-14 21:14 | NURSING ---
Dr. Roldan notified of patient being concerned about her BPs trending downward. Orders given to d/c BP medications.
[2017-07-15] MEDS: oxyCODONE 5 MG Tablet 10 MG PO ×2 (02:10→11:36)
[2017-07-15] MEDS: Menthol/Lanolin/Calamine/Znox 113 GM Tube 1 APPLIC TOPICAL ×3 (05:49→20:30)
[2017-07-15] MEDS: Lidocaine 5% Patch 1 PATCH TOPICAL (05:50)
[2017-07-15] MEDS: Nystatin Powder 15gm Bottle 1 APPLIC TOPICAL ×2 (05:50→18:03)
[2017-07-15] MEDS: Enoxaparin 40 MG/0.4 ML Syringe SC (05:50)
[2017-07-15] MEDS: tiZANidine HCl 2 MG Tablet 4 MG PO (05:52)
[2017-07-15] MEDS: Pantoprazole Sodium 20 MG Tablet PO (05:52)
[2017-07-15] MEDS: Topiramate 25 MG Tablet PO ×2 (05:52→18:03)
[2017-07-15] MEDS: buPROPion (SR) 150 MG Tablet.SA PO ×2 (08:48→18:03)
[2017-07-15 10:00] VITALS: PULSE 84; RESP 20; O2SAT 95
[2017-07-15] MEDS: HYDROmorphone 2 MG TABLET PO (14:45)
[2017-07-15 16:00] VITALS: BP 111/46; PULSE 75; RESP 20; TEMP 36.6; O2SAT 94
[2017-07-15] MEDS: Sertraline 50 MG Tablet PO (20:29)
[2017-07-15] MEDS: Pravastatin 40 MG Tablet PO (20:29)
[2017-07-16] MEDS: oxyCODONE 5 MG Tablet 10 MG PO ×3 (02:18→22:40)
[2017-07-16] MEDS: Lidocaine 5% Patch 1 PATCH TOPICAL (06:10)
[2017-07-16] MEDS: Enoxaparin 40 MG/0.4 ML Syringe SC (06:11)
[2017-07-16] MEDS: Menthol/Lanolin/Calamine/Znox 113 GM Tube 1 APPLIC TOPICAL ×3 (06:11→22:40)
[2017-07-16] MEDS: Nystatin Powder 15gm Bottle 1 APPLIC TOPICAL ×2 (06:11→18:31)
[2017-07-16] MEDS: Topiramate 25 MG Tablet PO ×2 (06:12→18:31)
[2017-07-16] MEDS: Senna/Docusate Sodium 1 Tablet 2 TABLET PO (06:12)
[2017-07-16] MEDS: Pantoprazole Sodium 20 MG Tablet PO (06:13)
[2017-07-16] MEDS: tiZANidine HCl 2 MG Tablet 4 MG PO (06:14)
[2017-07-16] MEDS: buPROPion (SR) 150 MG Tablet.SA PO ×2 (09:22→18:31)
--- NOTE | 2017-07-16 12:21 | CASEMGMT ---
Social Work Spoke with resident and resident family in room. Resident is now requesting for physical therapy to be set up within the home. Team is agreeable. Resident requesting for home health services to be set up through [facility] ([facility]). Resident also reporting a need for a quad cane. Resident does not have a preference of durable medical equipment, [employer] to be utilized. Resident plans to discharge home with daughter. Resident daughter to provide transportation home for resident at time of discharge. Support given. [facility] This social and political studies professor making referral for physical therapy. Order to be completed. Telephone call to Jayde Cortez. This social and political studies professor making referral for quad cane. Jayde to have quad cane delivered to resident room by time of discharge. Order faxed. Proposed discharge date: 07/21/17 PLAN: Discharge home with daughter and home health services. Julia MILLAN, [employer]
--- NOTE | 2017-07-16 14:32 | HHNOTE_ITS ---
Home Health Note - Plan Overview of reason of hospitalization: The patient is a 66 year old Female with below past medical history hospitalized for right total hip replacement 06/23/2017, admitted to TCU with debility, here for rehabilitation, strengthening, prior to discharge home alone. On TCU, resident developed cellulitis surrounding incision, treated with Keflex , Doxycycline, resolved. Discharge home with daughter, and outpatient physical therapy. Problems: Patient was seen for Osteoarthritis of right hip (Chronic) Anxiety (Chronic) Hyperlipidemia (Chronic) Tobacco abuse (Chronic) Chronic obstructive pulmonary disease (Chronic) Lumbar disc disease (Chronic) Obesity (Chronic) Depression (Chronic) Chronic kidney disease (Chronic) Vertigo (Chronic) Complete List of Medical Problems Osteoarthritis of right hip (Chronic) Anxiety (Chronic) Hyperlipidemia (Chronic) Tobacco abuse (Chronic) Chronic obstructive pulmonary disease (Chronic) Lumbar disc disease (Chronic) Obesity (Chronic) Depression (Chronic) Chronic kidney disease (Chronic) Vertigo (Chronic) Tobacco use disorder (Chronic) Hematemesis (Chronic) HTN (hypertension) (Chronic) Esophageal reflux (Chronic) Depressive disorder (Chronic) - Requirements and Reasons Disciplines Needed/Ordered: Physical Therapy Reason for Disciplines: Gait Training, Stair Training, Fall Prevention, Home Safety/Equipment Instruction, Balance and/or Posture Training, Transfer Training Related To: Limited/Poor Endurance, Shortness of Breath with Activity, Physical Impairments, Unsteady Gait/Balance, Fall Risk Patient is unable to leave the home: Without Aid of Supportive Devices (crutches , cane, wheelchair, walker), Without the assistance of another person
[2017-07-16 15:17] VITALS: BP 134/56; PULSE 72; RESP 20; TEMP 36.4; O2SAT 96
[2017-07-16 22:40] VITALS: BP 113/60; PULSE 79; RESP 16; TEMP 37.1; O2SAT 96
[2017-07-16] MEDS: Pravastatin 40 MG Tablet PO (22:41)
[2017-07-16] MEDS: Sertraline 50 MG Tablet PO (22:41)
[2017-07-16 22:45] VITALS: PULSE 79; RESP 16; O2SAT 96
[2017-07-17] MEDS: Menthol/Lanolin/Calamine/Znox 113 GM Tube 1 APPLIC TOPICAL ×3 (05:32→22:00)
[2017-07-17] MEDS: Nystatin Powder 15gm Bottle 1 APPLIC TOPICAL ×2 (05:32→17:20)
[2017-07-17] MEDS: Lidocaine 5% Patch 1 PATCH TOPICAL (05:33)
[2017-07-17] MEDS: tiZANidine HCl 2 MG Tablet 4 MG PO (05:34)
[2017-07-17] MEDS: Topiramate 25 MG Tablet PO ×2 (05:34→17:20)
[2017-07-17] MEDS: Senna/Docusate Sodium 1 Tablet 2 TABLET PO (05:34)
[2017-07-17] MEDS: Enoxaparin 40 MG/0.4 ML Syringe SC (05:35)
[2017-07-17] MEDS: Pantoprazole Sodium 20 MG Tablet PO (05:35)
[2017-07-17] MEDS: buPROPion (SR) 150 MG Tablet.SA PO ×2 (07:39→17:20)
[2017-07-17] MEDS: oxyCODONE 5 MG Tablet 10 MG PO ×2 (07:39→14:00)
[2017-07-17 07:42] LABS: Absolute Lymphocyte Count 2.83 X10^3/ul (0.83-4.51); Absolute Neutrophil Count 4.3 X10^3/uL (2.0-7.7); Basophil# 0.05 X10^3/uL; Basophil% 0.6 % (0-1); Eosinophil# 0.33 X10^3/uL; Eosinophils% 3.9 % (0-5); Hematocrit 34.2 % (37-47); Hemoglobin 10.7 g/dl (12.0-15.0); Lymphocyte # 2.83 X10^3/ul (4.0); Lymphocyte % 33.5 % (19-41); Mean Corp Hgb Conc 31.3 g/gl (32-36); Mean Corpuscular Hgb 30.1 pg (27.0-32.0); Mean Corpuscular Volume 96.3 fL (81-99); Mean Platelet Vol. 9.6 fl (6.2-12.0); Monocyte# 0.91 X10^3/uL; Monocyte% 10.8 % (0-10); Neutrophil # 4.29 X10^3/uL (2.7-7.7); Neutrophil % 50.7 % (47-70); Platelet Count 358 K/mm3 (150-450); RBC Distribution Width CV 14.3 % (11.6-14.6); RBC Distribution Width SD 48.4 fl (35.1-43.9); Red Blood Count 3.55 M/mm3 (4.2-5.4); White Blood Count 8.5 K/mm3 (4.4-11.0)
[2017-07-17 07:43] LABS: POSITIVE COUNT NO; POSITIVE DIFFERENTIAL NO; POSITIVE MORPHOLOGY NO
[2017-07-17 08:06] LABS: Anion Gap 6 (5-15); BUN 26 mg/dL (7-18); BUN/Creat Ratio 29.2 RATIO (10-20); Calcium,Total 8.6 mg/dL (8.5-10.1); Chloride 109 mmol/L (98-107); Creatinine, Serum 0.89 mg/dL (0.55-1.02); EST Glomerular Filtration Rate 68 mL/min (>60); Est Glom Filt Rate - Afr Amer 82 mL/min (>60); Estimated Creatinine Clearance 52.13 ml/min; Glucose 91 mg/dL (74-106); Potassium 4.4 mmol/L (3.5-5.1); Sodium Level 143 mmol/L (136-145)
--- NOTE | 2017-07-17 08:37 | NURSING ---
Dr. Roldan reviewed labs, N.N.O.
[2017-07-17 15:43] VITALS: BP 119/58; PULSE 88; RESP 18; TEMP 36.1; O2SAT 97
[2017-07-17 22:00] VITALS: PULSE 77; RESP 14; O2SAT 98
[2017-07-17] MEDS: Sertraline 50 MG Tablet PO (22:01)
[2017-07-17] MEDS: Pravastatin 40 MG Tablet PO (22:01)
[2017-07-18] MEDS: oxyCODONE 5 MG Tablet 10 MG PO ×3 (01:45→16:21)
[2017-07-18] MEDS: Lidocaine 5% Patch 1 PATCH TOPICAL (05:12)
[2017-07-18] MEDS: Senna/Docusate Sodium 1 Tablet 2 TABLET PO (05:13)
[2017-07-18] MEDS: tiZANidine HCl 2 MG Tablet 4 MG PO (05:13)
[2017-07-18] MEDS: Pantoprazole Sodium 20 MG Tablet PO (05:13)
[2017-07-18] MEDS: Topiramate 25 MG Tablet PO ×2 (05:15→16:50)
[2017-07-18] MEDS: Nystatin Powder 15gm Bottle 1 APPLIC TOPICAL ×2 (05:19→17:34)
[2017-07-18] MEDS: Enoxaparin 40 MG/0.4 ML Syringe SC (05:20)
[2017-07-18] MEDS: Menthol/Lanolin/Calamine/Znox 113 GM Tube 1 APPLIC TOPICAL ×2 (05:22→20:32)
[2017-07-18] MEDS: buPROPion (SR) 150 MG Tablet.SA PO ×2 (07:56→16:43)
[2017-07-18 16:00] VITALS: BP 124/66; PULSE 68; RESP 18; TEMP 36.9; O2SAT 96
[2017-07-18] MEDS: Sertraline 50 MG Tablet PO (20:31)
[2017-07-18] MEDS: Pravastatin 40 MG Tablet PO (20:31)
[2017-07-18 22:00] VITALS: O2SAT 97
[2017-07-19] MEDS: oxyCODONE 5 MG Tablet 10 MG PO ×4 (01:13→22:06)
[2017-07-19] MEDS: Topiramate 25 MG Tablet PO ×2 (05:57→17:27)
[2017-07-19] MEDS: tiZANidine HCl 2 MG Tablet 4 MG PO (05:57)
[2017-07-19] MEDS: Pantoprazole Sodium 20 MG Tablet PO (05:57)
[2017-07-19] MEDS: Senna/Docusate Sodium 1 Tablet 2 TABLET PO ×2 (05:57→17:26)
[2017-07-19] MEDS: Lidocaine 5% Patch 1 PATCH TOPICAL (05:59)
[2017-07-19] MEDS: Enoxaparin 40 MG/0.4 ML Syringe SC (06:02)
[2017-07-19] MEDS: Nystatin Powder 15gm Bottle 1 APPLIC TOPICAL ×2 (06:04→17:27)
[2017-07-19] MEDS: buPROPion (SR) 150 MG Tablet.SA PO ×2 (09:27→17:27)
[2017-07-19 15:39] VITALS: BP 122/65; PULSE 76; RESP 16; TEMP 35.2; O2SAT 97
[2017-07-19 22:00] VITALS: PULSE 77; RESP 18; O2SAT 97
[2017-07-19] MEDS: Menthol/Lanolin/Calamine/Znox 113 GM Tube 1 APPLIC TOPICAL (22:01)
[2017-07-19] MEDS: Sertraline 50 MG Tablet PO (22:01)
[2017-07-19] MEDS: Pravastatin 40 MG Tablet PO (22:01)
[2017-07-20] MEDS: oxyCODONE 5 MG Tablet 10 MG PO ×2 (05:03→13:25)
[2017-07-20] MEDS: Topiramate 25 MG Tablet PO ×2 (05:03→17:44)
[2017-07-20] MEDS: Lidocaine 5% Patch 1 PATCH TOPICAL (05:03)
[2017-07-20] MEDS: Senna/Docusate Sodium 1 Tablet 2 TABLET PO ×2 (05:04→17:44)
[2017-07-20] MEDS: tiZANidine HCl 2 MG Tablet 4 MG PO (05:06)
[2017-07-20] MEDS: Enoxaparin 40 MG/0.4 ML Syringe SC (05:06)
[2017-07-20] MEDS: Pantoprazole Sodium 20 MG Tablet PO (05:06)
[2017-07-20] MEDS: buPROPion (SR) 150 MG Tablet.SA PO ×2 (08:47→17:45)
[2017-07-20] MEDS: Menthol/Lanolin/Calamine/Znox 113 GM Tube 1 APPLIC TOPICAL (14:31)
[2017-07-20 15:40] VITALS: BP 127/66; PULSE 73; RESP 18; TEMP 36.6; O2SAT 96
--- NOTE | 2017-07-20 15:45 | CASEMGMT ---
Brief interview for mental status (BIMS) and resident mood interview completed on this day. BIMS score 15/15. PHQ-9 score 03/27.
[2017-07-20] MEDS: Nystatin Powder 15gm Bottle 1 APPLIC TOPICAL (17:45)
[2017-07-20] MEDS: Ondansetron ODT 4 MG Tablet 8 MG PO (20:22)
[2017-07-20] MEDS: Pravastatin 40 MG Tablet PO (20:23)
[2017-07-20] MEDS: Sertraline 50 MG Tablet PO (20:23)
[2017-07-20 20:29] VITALS: PULSE 72; RESP 18
[2017-07-21] MEDS: oxyCODONE 5 MG Tablet 10 MG PO ×2 (01:00→11:16)
[2017-07-21 02:32] VITALS: PULSE 72; O2SAT 96
[2017-07-21] MEDS: Menthol/Lanolin/Calamine/Znox 113 GM Tube 1 APPLIC TOPICAL (05:14)
[2017-07-21] MEDS: Enoxaparin 40 MG/0.4 ML Syringe SC (05:15)
[2017-07-21] MEDS: Nystatin Powder 15gm Bottle 1 APPLIC TOPICAL (05:15)
[2017-07-21] MEDS: Lidocaine 5% Patch 1 PATCH TOPICAL (05:15)
[2017-07-21] MEDS: Pantoprazole Sodium 20 MG Tablet PO (05:16)
[2017-07-21] MEDS: tiZANidine HCl 2 MG Tablet 4 MG PO (05:17)
[2017-07-21] MEDS: Topiramate 25 MG Tablet PO (05:17)
[2017-07-21] MEDS: buPROPion (SR) 150 MG Tablet.SA PO (08:03)
[2017-07-21 10:00] VITALS: PULSE 77; RESP 18; O2SAT 97
--- NOTE | 2017-07-21 10:35 | NURSING ---
NICOTINE PATCH VERIFIED TO RIGHT DELT. EDUCATION GIVEN. PT UNDERSTOOD.
--- NOTE | 2017-07-21 10:36 | NURSING ---
PT DAUGHTER IN ROOM YELLING AT PT FOR BEING IN BED. PT TOLD DAUGHTER NURSE TOLD ME TO KEEP MY FEET AND LEGS UP DUE TO THE SWELLING. DAUGHTER REPLIED TO PT WELL YOUR NOT STAYING IN BED GET UP AND WALK THAT WILL HELP WITH THE SWELLING. REPORTED TO BILLIE MCCOY
[2017-07-21 12:39] VITALS: BP 115/68; PULSE 79; RESP 18; TEMP 36.8; O2SAT 94
--- NOTE | 2017-07-21 14:27 | MDS.RN ---
Information for the mds was obtained from review of the clinical record, interview of resident, staff, and direct observation of resident's care.
--- NOTE | 2017-08-09 07:54 | MDS.RN ---
5 day MDS assessment due 08/04/17 was completed 08/06/17 due to hospital computers down
== END 2017-07-21 12:35 | disposition home health service (06) | DRG 560 ==
PROVIDERS: Admitting Provider Family Medicine Geriatric Medicine; Family Provider Internal Medicine; PCP Internal Medicine; Visit Provider Family Medicine Geriatric Medicine
DX: Z47.1 Aftercare following joint replacement surgery (principal); Z68.41 Body mass index [BMI] 40.0-44.9, adult; L03.115 Cellulitis of right lower limb; Z96.641 Presence of right artificial hip joint; K21.9 Gastro-esophageal reflux disease without esophagitis; F32.9 Major depressive disorder, single episode, unspecified; Z23 Encounter for immunization; E78.5 Hyperlipidemia, unspecified; F41.9 Anxiety disorder, unspecified; J44.9 Chronic obstructive pulmonary disease, unspecified; M46.46 Discitis, unspecified, lumbar region; E66.9 Obesity, unspecified; Z71.3 Dietary counseling and surveillance; I12.9 Hypertensive chronic kidney disease with stage 1 through stage 4 chronic kidney disease, or unspecified chronic kidney disease; N18.9 Chronic kidney disease, unspecified; F17.210 Nicotine dependence, cigarettes, uncomplicated
CPT/HCPCS: 36415; 74018; 80048; 81001; 85025; 87070; 87205; 87640; 94762; 97110; 97116; 97140; 97162; 97166; 97530; 97535; 97802; 90670

== ENCOUNTER 2017-10-28 15:00 | Outpatient (RCR) | payer MEDICARE, MEDICAID, SELFPAY ==
--- NOTE | 2017-09-13 12:06 | HP.PTEVAL_ITS ---
Patient's Visit Information DIANNE HERNDON is a 66 year old F referred to Physical Therapy by EVA HERNDON with a diagnosis of Acute R hip pain secondary to R THR. Date of Evaluation: 09/13/17 Physical Therapist: Antinoette Can, PT - Visit Plan Frequency: 2x /Week Duration: 4 Weeks Plan: Therapeutic exercises and activities targeting BLE strength, endurance, ROM and flexibility. Balance and gait training for improved mobility. Modalities and Manual as needed to decrease pain and increase ROM. Incorporate HEP to promote maintainence and independence. - Subjective Subjective: Patient presents in therapy today with right hip soreness and weakness secondary to THR on 06/23/17. She had in-home therapy for 4 weeks through [facility]. States that her therapy was put on back burner because she said she over did it in at home therapy and hurt her knee. She was wearing a knee brace for two weeks but is not anymore. She is ambulating with a cane, however, starting to wean off and doing at home distances without the cane. Patient notices increased difficulty standing long durations and walking. She just does not feel 100% and that is why she is here today. She reports that her restriction have been removed from the doctor 09/07/17. She has 14 stairs at home that she has mastered with a cane but still as some anxiety going down. Patient reports still having swelling at incision but not icing and no reported numbness or tingling. She is still taking prescribed pain medication to help alleviate pain. She is retired - Pain right hip Pain Intensity (Out of 10): 0 Pain Intensity Range: 0 Comment: more of soreness low back pain Pain Intensity (Out of 10): 4 - Objective Patient 10 minutes late to therapy session. Posture: Static standing weight shifted slightly onto LLE with cane in left hand. Strength: BLE grossly 5/5 strength except right hip flexion 4/5, bilateral extension 4/5, right hip abduction 4-/5, left hip abduction 4/5. Palpation: Tenderness to palpation over right lateral hip near incision. Appearance: Slight swelling of right lateral hip especially near incision. Range of Motion: Right hip flexion 70*, left hip flexion 90* (hip flexion slightly limited by adipose tissue), right hip abduction 60*, left hip abduction 80*, right/left hip extension 50*. Flexibility: Moderate tightness right hamstring -30* knee extension (left -15* knee extension); mild quad tightness on the right. Balance: Modified SLS R leading 15 seconds and left leading 10 seconds. Gait: Patient ambulating with a heel/toe gait pattern with equal stance time bilaterally; mild hip drop bilaterally with trunk shifted toward the left. Stairs: Patient ascends stairs with handrail support R and cane L using step to pattern left leading and descends with handrail on L and cane R using step to pattern R leading - Goals Goal 1:: Patient will increase B hip strength grossly 5/5 for improved performance with functional mobility tasks Goal Time Frame: 4-6 Weeks Goal 2:: Patient will increase R hamstring flexibility to match L for improved mobility Goal Time Frame: 4-6 Weeks Goal 3:: Patient will ambulate 100 ft. independently with a heel/toe gait pattern and no compensary movements to improve gait and safety Goal Time Frame: 4-6 Weeks Goal 4:: Patient will perform a tandem stance bilaterally 20 seconds with minimal ankle sway for improved balance Goal Time Frame: 4-6 Weeks Goal 5:: Patient will ascend 12 stairs using an alternating foot pattern with single handrail support for improved mobility Goal Time Frame: 4-6 Weeks - Rehabilitation Potential Physical Therapy Diagnosis: Muscle Weakness, Impaired Gait, Limited Balance Rehabilitation Potential: Good - Anticipated Interventions Patient/Client Instruction: Educate patient on: Condition, Plan of Care For the Purpose of:: To decrease pain, To decrease swelling/inflammation, To increase ROM, To improve muscle performance and motor function, To improve ability to perform ADL's, To improve performance and independence with ADL's, To improve ability of physical actions for home/community/work/leisure, To improve gait and locomotor functions, To increase flexibility/ROM, To improve endurance, To improve balance, To improve safety with gait Therapeutic Exercise to Include: Strength training, Endurance training, Balance training, Body mechanics, Flexibilty training, Gait and locomotor training, Neuromotor development, Passive ROM, Active ROM For the Purpose of:: To increase ROM, To improve muscle performance and motor function, To improve ability to perform ADL's, To improve ability of physical actions for home/community/work/leisure, To improve gait and locomotor functions , To increase flexibility/ROM, To improve endurance, To improve balance, To improve safety with gait Functional Training to Include: ADL Training, Gait training For the Purpose of:: To improve muscle performance and motor function, To improve ability to perform ADL's, To improve performance and independence with ADL's Comment: massage not covered by insurance For the Purpose of:: To decrease pain, To increase ROM, To increase flexibility/ ROM Iontophoresis (with Dexamethozone, with Acetic acid): - not covered by insurance For the Purpose of:: To decrease pain, To decrease swelling/inflammation, To increase ROM, To increase flexibility/ROM Thank you for the opportunity to evaluate your patient. For Medicare and Medicare HMO plans, please review the plan of care and approve it. It will need to be FAXED BACK to us at [phone] for Medicare purposes. Please let me know if there are questions or concerns regarding this plan of care. Physician Signature: Date:
--- NOTE | 2017-10-11 12:51 | HP.PTREVAL ---
EVA YANICK, It has been my pleasure to treat DIANNE HERNDON over the last 8 visits for Acute R hip pain secondary to R THR. Please see the progress note below for an update on the physical therapy plan of care! Subjective: Pt reports no pain this date. Pt does report difficulty still with stairs and walking without a cane Objective/Function: R LE MMT: 4+/5 throughout. Pt is able to ascend and descend 10 stairs, but requires 2 HR at times. Pt is able to stand for 20 sec without LOB. Pt can ambulate approximately 400 feet without AD until feeling fatigued and needing to rest. Pt is progressing well toward Rx goals, but would benefit from further skilled PT to aid with gait and stair negotiation. Plan Plan: Cont with R LE and core strengthening to aid with stair negotiation and gait Goals Goal 1:: Patient will increase B hip strength grossly 5/5 for improved performance with functional mobility tasks Goal Time Frame: 4-6 Weeks Goal Progress: Progressing Goal 2:: Patient will increase R hamstring flexibility to match L for improved mobility Goal Time Frame: 4-6 Weeks Goal Progress: Goal Met Goal 3:: Patient will ambulate 100 ft. independently with a heel/toe gait pattern and no compensary movements to improve gait and safety Goal Time Frame: 4-6 Weeks Goal Progress: Goal Met Goal 4:: Patient will perform a tandem stance bilaterally 20 seconds with minimal ankle sway for improved balance Goal Time Frame: 4-6 Weeks Goal Progress: Progressing Goal 5:: Patient will ascend 12 stairs using an alternating foot pattern with single handrail support for improved mobility Goal Time Frame: 4-6 Weeks Goal Progress: Progressing Anticipated Interventions Patient/Client Instruction: Educate patient on: Condition, Plan of Care For the Purpose of:: To decrease pain, To decrease swelling/inflammation, To increase ROM, To improve muscle performance and motor function, To improve ability to perform ADL's, To improve performance and independence with ADL's, To improve ability of physical actions for home/community/work/leisure, To improve gait and locomotor functions, To increase flexibility/ROM, To improve endurance, To improve balance, To improve safety with gait Therapeutic Exercise to Include: Strength training, Endurance training, Balance training, Body mechanics, Flexibilty training, Gait and locomotor training, Neuromotor development, Passive ROM, Active ROM For the Purpose of:: To increase ROM, To improve muscle performance and motor function, To improve ability to perform ADL's, To improve ability of physical actions for home/community/work/leisure, To improve gait and locomotor functions, To increase flexibility/ROM, To improve endurance, To improve balance, To improve safety with gait Functional Training to Include: ADL Training, Gait training For the Purpose of:: To improve muscle performance and motor function, To improve ability to perform ADL's, To improve performance and independence with ADL's Comment: massage not covered by insurance For the Purpose of:: To decrease pain, To increase ROM, To increase flexibility/ROM Iontophoresis (with Dexamethozone, with Acetic acid): - not covered by insurance For the Purpose of:: To decrease pain, To decrease swelling/inflammation, To increase ROM, To increase flexibility/ROM Please do not hesitate to contact me at [phone] by phone or if you have questions or concerns regarding this new plan of care! Sincerely, Rl Lopez, PT,
--- NOTE | 2017-12-07 10:16 | HP.PT.NRP ---
HP - Discharge Summary (1) - Patient Information DIANNE HERNDON was seen in my office for initial evaluation on 09/13/17. The following Plan of Care was established for this patient: Initial Frequency: 2x /Week Initial Duration: 4 Weeks - Anticipated Interventions Patient/Client Instruction: Educate patient on: Condition, Plan of Care For the Purpose of:: To decrease pain, To decrease swelling/inflammation, To increase ROM, To improve muscle performance and motor function, To improve ability to perform ADL's, To improve performance and independence with ADL's, To improve ability of physical actions for home/community/work/leisure, To improve gait and locomotor functions, To increase flexibility/ROM, To improve endurance, To improve balance, To improve safety with gait Therapeutic Exercise to Include: Strength training, Endurance training, Balance training, Body mechanics, Flexibilty training, Gait and locomotor training, Neuromotor development, Passive ROM, Active ROM For the Purpose of:: To increase ROM, To improve muscle performance and motor function, To improve ability to perform ADL's, To improve ability of physical actions for home/community/work/leisure, To improve gait and locomotor functions, To increase flexibility/ROM, To improve endurance, To improve balance, To improve safety with gait Functional Training to Include: ADL Training, Gait training For the Purpose of:: To improve muscle performance and motor function, To improve ability to perform ADL's, To improve performance and independence with ADL's Comment: massage not covered by insurance For the Purpose of:: To decrease pain, To increase ROM, To increase flexibility/ROM Iontophoresis (with Dexamethozone, with Acetic acid): - not covered by insurance For the Purpose of:: To decrease pain, To decrease swelling/inflammation, To increase ROM, To increase flexibility/ROM This patient was last seen in our office . Pertinent comments regarding their Physical therapy will appear below: Pt was last seen on the date of 10/28/17 for her R hip pain. Pt has not returned through todays date, and is therefore discontinued at this time. At this point I will be discontinuing this patient from physical therapy. I would be happy to see this patient again in the future if found appropriate by the physician. Thank you! Rl Lopez, PT,
== END 2017-10-28 19:00 | disposition home or self-care (01) ==
LOC: PT 15:00
PROVIDERS: Family Provider Internal Medicine; PCP Internal Medicine
DX: G89.18 Other acute postprocedural pain (principal); M25.551 Pain in right hip; Z96.641 Presence of right artificial hip joint
CPT/HCPCS: 97110; 97161; 97530

== ENCOUNTER 2018-11-28 08:41 | Emergency (ER) | payer MEDICARE, SELFPAY ==
[2018-11-28 08:42] VITALS: BP 119/69; PULSE 84; RESP 18; TEMP 36.5; O2SAT 99; BMI 45.7
--- NOTE | 2018-11-28 08:53 | CT_ITS ---
STUDY: CT ABDOMEN AND PELVIS WITH CONTRAST REASON FOR EXAM: Female, 67 years old. Lower abdominal pain. Constipation. Nausea. RADIATION DOSAGE (If Supplied By Facility): CTDIvol = ( 17.07 ) mGy, DLP = ( 1252.14 ) mGycm TECHNIQUE: Transaxial images were obtained from the dome of the diaphragm to the symphysis pubis without oral contrast. IV Isovue 250 100ML was administered. Sagittal and coronal images were reconstructed. Individualized dose optimization techniques were used for this CT. COMPARISON: None. FINDINGS: Mild degree of increased markings with areas of confluence in the lower lobes worse on the left side suggestive of bibasilar atelectasis and possible scarring. The visualized portions of the heart are within normal limits. There is decreased attenuation of the liver consistent with steatosis. Normal gallbladder and extrahepatic biliary system. Normal spleen. Normal pancreas. There is a 3.3 cm x 2.4 cm hypodense mass in the left adrenal gland. This may represent an adenoma. There is a 6.3 cm x 6.3 cm cyst in the lateral inferior portion of the right kidney. A punctate calcification is seen in the lower pole of the right kidney. A 1 cm cyst is seen in the anterior inferior aspect of the left kidney. Normal left kidney. There is a small hiatal hernia. Normal small intestine. There is diverticulosis, with thickening of the colon wall, and pericolonic inflammation changes consistent with acute diverticulitis. There is non-visualization of the appendix. There is diffuse atherosclerotic calcification of the abdominal aorta and its major visceral branches, without a demonstrated aneurysm. Normal inferior vena cava. There is borderline retroperitoneal lymphadenopathy with enlarged nodes no greater than 10mm in the short axis diameter. Normal urinary bladder. There is absence of the uterus consistent with a prior hysterectomy. Normal abdominal wall. There are diffuse degenerative changes of the visualized lumbar spine. Prior right total hip replacement. CT/Abdomen/Pelvis W IV Cont ONLY IMPRESSION: Fatty infiltration of the liver. Sigmoid diverticulosis with a inflammatory changes in the rectosigmoid colon suggestive of noncomplicated acute sigmoid diverticulitis. Right renal cyst. 3.3 cm x 2.4 cm mass in the left adrenal gland. Electronically Signed: Servando Perez, at 10:17 EDT , Service support ,
--- NOTE | 2018-11-28 08:55 | ED.VISSUMM ---
- ER Visit Summary Date of Service: 11/28/18 Chief Complaint: Lower abdominal pain History of Present Illness: The patient is a 67 F history of prior diverticulitis, hypertension, high cholesterol, COPD. Patient had a prior hysterectomy and ovary removal. States that Wednesday afternoon evening started developing lower abdominal pain. Low back pain. Associated nausea but no vomiting. No diarrhea. No fever. No dysuria. Positive constipation last bowel movement was Wednesday. She denies any fever. Physical Examination: Older female no acute distress vital signs stable afebrile. HEENT exam unremarkable. Moist wheeze members. Neck nontender no lymphadenopathy. Lungs clear to auscultation bilaterally. Heart regular rhythm no murmur. Abdomen is obese but soft. Both upper quadrants are nontender. There is no Montez sign or McBurney's point tenderness. No hernias or masses. Nondistended. No obvious signs of obstruction. Mild suprapubic and lower quadrant tenderness. No obvious pulsatile mass. Back nontender. Moving all 4 extremities. Nontender no edema. Normal motor strength. Neurologically she is awake and alert. No focal motor deficits. Test Results: White count of 14,000. Hemoglobin 13. No bands. Chemistries unremarkable normal creatinine gap. Liver enzymes normal. Lipase normal. UA unremarkable other than nitrates and 1+ bacteria. CT abdomen pelvis with IV contrast shows sigmoid diverticulitis. Otherwise unremarkable. The appendix is not seen. Emergency Department Course and Treatment: Older female with lower abdominal pain with a prior history of diverticulitis. Labs, urinalysis CT of be obtained. She is being treated with morphine, Zofran and IV fluids. Repeat exam patient is doing well at 10:55 AM. She will be given a second dose of morphine. And her first dose of Augmentin. She has a Flagyl allergy so Augmentin will be chosen twice a day for her diverticulitis. She is comfortable being discharged home. She has a ride. Treatment Plan: Augmentin twice daily for 10 days 20 no refill. [place] for pain 20 no refill. Zofran for nausea 10 no refill. Follow up with your doctor return if worse. Disposition: Discharge Impression: Acute lower abdominal pain secondary to acute sigmoid diverticulitis This note was generated with hike dictation software. It may contain incorrect words, spelling, and punctuation that were not noted in review of the chart prior to signing ED Disposition - Plan for ED Patient: Referrals: Maxim Tapia MD [STAFF PHYSICIAN] -
[2018-11-28] MEDS: 0.9% Normal Saline 1,000 ML 1000 ML IV (09:11)
[2018-11-28] MEDS: Morphine 4 MG/ML Syringe 6 MG IV (09:12)
[2018-11-28] MEDS: Ondansetron 4 MG/2 ML Vial IV (09:12)
[2018-11-28 09:25] LABS: Absolute Lymphocyte Count 1.65 X10^3/uL (0.83-4.51); Absolute Neutrophil Count 10.9 X10^3/uL (2.0-7.7); Basophil# 0.06 X10^3/uL; Basophil% 0.4 % (0-1); Eosinophil# 0.04 X10^3/uL; Eosinophils% 0.3 % (0-5); Hematocrit 41.7 % (37-47); Hemoglobin 13.4 g/dL (12.0-15.0); Lymphocyte # 1.65 X10^3/ul (4.0); Lymphocyte % 11.6 % (19-41); Mean Corp Hgb Conc 32.1 g/dL (32-36); Mean Corpuscular Hgb 29.2 pg (27.0-32.0); Mean Corpuscular Volume 90.8 fL (81-99); Mean Platelet Vol. 10.5 fl (6.2-12.0); Monocyte# 1.57 X10^3/uL; NRBC Flagged by Analyzer 0 % (0-5); Neutrophil # 10.89 X10^3/uL (2.7-7.7); Neutrophil % 76.2 % (47-70); POSITIVE DIFFERENTIAL YES; Platelet Count 280 K/mm3 (150-450); RBC Distribution Width CV 14.2 % (11.6-14.6); RBC Distribution Width SD 47.7 fl (35.1-43.9); Red Blood Count 4.59 M/mm3 (4.2-5.4); White Blood Count 14.3 K/mm3 (4.4-11.0)
[2018-11-28 09:30] LABS: Differential Indicated SCAN CRITERIA MET
[2018-11-28 09:42] LABS: AST(SGOT) 16 U/L (15-37); Alanine Aminotransfer ALT/SGPT 18 U/L (13-56); Albumin, Serum 3.3 g/dL (3.2-5.0); Alkaline Phosphatase 72 U/L (45-117); Anion Gap 7 (5-15); BUN 18 mg/dL (7-18); BUN/Creat Ratio 18.7 RATIO (10-20); Bilirubin, Direct 0.19 mg/dL (0.00-0.30); Calcium,Total 8.9 mg/dL (8.5-10.1); Chloride 106 mmol/L (98-107); Creatinine, Serum 0.96 mg/dL (0.55-1.02); EST Glomerular Filtration Rate 61 mL/min (>60); Est Glom Filt Rate - Afr Amer 74 mL/min (>60); Estimated Creatinine Clearance 47.68 ml/min; Globulin 3.5 g/dL (2.2-4.2); Glucose 107 mg/dL (74-106); Lipase 57 U/L (73-393); Potassium 3.8 mmol/L (3.5-5.1); Protein, Total 6.8 g/dL (6.4-8.2); Sodium Level 138 mmol/L (136-145)
[2018-11-28 09:51] LABS: Platelet Estimate ADEQUATE (ADEQ); Red Cell Morphology NORM C+C NORMAL (NORM C&C)
[2018-11-28 10:14] LABS: Mucous, Urine 0 SEEN /hpf (<or=2+)
[2018-11-28 10:15] LABS: Color, Urine Yellow (Yellow); Glucose, Dipstick Normal (Normal); Ketone-Dipstick Negative (Negative); Leukocyte Esterase-Dipstick 25 /ul (Negative); Nitrite-Dipstick Positive (Negative); Occult Blood-Urine 50 /ul (Negative); Protein-Dipstick 15 mg/dl (Negative); Urine Bilirubin Dipstick Negative (Negative); Urine Clarity Sl. Cloudy (Clear); Urine Urobilinogen Normal (Normal)
[2018-11-28 10:21] LABS: Bacteria 1+ /hpf (None Seen); Red Blood Cells-Urine 0-5 SEEN /hpf (0-5); Squamous Epithelial Cells - UA 0-5 SEEN /hpf (5-10); White Blood Cells 0-5 SEEN /hpf (0-5)
[2018-11-28 10:55] VITALS: RESP 18
--- NOTE | 2018-11-28 10:58 | DCINST.ED_ITS ---
ED Disposition - Plan for ED Patient: Disposition: Home or Assisted Living Instructions: Diverticulitis Prescriptions: Amox/Clavulanate Tablet [Augmentin Tablet] 875 mg PO Q12H #20 tab Prescription Printed Hydrocodone Bitart/Apap 5-325 [[place] 5MG-325MG] 1 tab PO Q4H PRN PRN 4 Days #20 tab PRN Reason: Pain Prescription Printed Ondansetron [Zofran Odt] 4 mg PO Q8H PRN PRN #14 tab PRN Reason: Nausea Prescription Printed Referrals: Dewayne Quan MD [Primary Care Provider] - 1 Week Additional Instructions: Plenty of fluids and rest. Augmentin 1 pill twice a day for 10 days for the diverticulitis. Follow-up to make sure this is improving sometimes it needs to be extended the length of time you on antibiotic. [place] for pain. Zofran as needed for nausea. Follow-up to make sure you are improving return if feeling worse.
[2018-11-28] MEDS: Amox/Clavulanate 875 MG Tablet PO (11:12)
[2018-11-28] MEDS: morphine 8 MG/ML Syringe 6 MG IV (11:12)
[2018-11-29 14:09] LABS: Pathologist Review Reviewed
== END 2018-11-28 11:25 | disposition home or self-care (01) ==
PROVIDERS: Emergency Provider Emergency Medicine; Family Provider Family Medicine; PCP Family Medicine
DX: K57.32 Diverticulitis of large intestine without perforation or abscess without bleeding (principal); I10 Essential (primary) hypertension; E78.00 Pure hypercholesterolemia, unspecified; J44.9 Chronic obstructive pulmonary disease, unspecified; K59.00 Constipation, unspecified; Z72.0 Tobacco use; F32.9 Major depressive disorder, single episode, unspecified; F41.9 Anxiety disorder, unspecified
CPT/HCPCS: 74177; 80048; 80076; 81001; 83690; 85025; 96361; 96374; 96375; 96376; 99284; J7030; Q9967; A4216; J2405

== ENCOUNTER 2021-08-13 23:34 | Emergency (ER) | payer MEDICARE, SELFPAY ==
[2021-08-13 23:34] VITALS: BP 129/75; PULSE 87; RESP 16; TEMP 36.4; O2SAT 93; BMI 44.6
[2021-08-14] MEDS: Lidocaine/Epi/Tetracaine 50 ML 1 APPLIC TOPICAL (00:15)
--- NOTE | 2021-08-14 00:30 | EX.ED.DYSGE1 ---
HPI History of Present Illness Chief Complaint: Ear Problem Narrative Narrative: Patient is a 70-year-old female who states she was sitting on her balcony this evening about 1 hour prior to arrival talking to her sister. She states she felt like a bug flew into her right ear. She states she swiped at her right ear instinctively but that there was no improvement and she felt like the insect was fluttering inside her ear. She states that as she cannot get the insect out she presents to the hospital for evaluation. PFSH PFSH Medical History no medical history Home Medications omeprazole 10 mg capsule,delayed release 20 mg PO DAILY GERD 07/31/13 [History Last Taken Unknown] sertraline 100 mg tablet 100 mg PO QHS Depression 07/31/13 [History Last Taken 06/24/17 21:12] Verapamil Hcl [Verapamil Sr] 270 mg PO DAILY blood pressure 06/25/17 [History Last Taken 06/24/17 21:38] bupropion HCl 150 mg tablet,12 hr sustained-release 150 mg PO DAILY Mood 06/25/17 [History Last Taken 06/25/17 08:56] lisinopril 20 mg-hydrochlorothiazide 12.5 mg tablet (Zestoretic) 1 ea PO DAILY Hypertension 06/25/17 [History Last Taken Unknown] pravastatin 40 mg tablet 40 mg PO QHS Cholestrol 06/25/17 [History Last Taken Unknown] sennosides 8.6 mg tablet (senna) 8.6 mg PO DAILY Bowel movement 06/25/17 [History Last Taken 06/25/17 08:56] tizanidine 4 mg tablet 4 mg PO DAILY Muscle relaxant 06/25/17 [History Last Taken Unknown] nystatin 100,000 unit/gram topical powder (Nyamyc) 1 applic topical BID 07/13/17 [Rx Last Taken Unknown] sennosides 8.6 mg-docusate sodium 50 mg tablet 2 tab PO BID #120 tabs 07/13/17 [Rx Last Taken Unknown] amoxicillin 875 mg-potassium clavulanate 125 mg tablet 875 mg PO Q12H #20 tabs 11/28/18 [Rx Last Taken Unknown] ondansetron 4 mg disintegrating tablet 4 mg PO Q8H PRN PRN Nausea #14 tabs 11/28/18 [Rx Last Taken Unknown] bxrpjlxb-xppenqfmm-kzluxuvij 3.5 mg-10,000 unit/mL-1 % ear drops,susp 4 drp RIGHT EAR TID 5 days #10 mL 08/14/21 [Rx Last Taken Unknown] Allergy/AdvReac Type Severity Reaction Status Date / Time nickel Allergy Hives Verified 08/13/21 23:36 ibuprofen AdvReac Other Verified 08/13/21 23:36 metronidazole [From Flagyl] AdvReac Swelling Verified 08/13/21 23:36 Social History Smoking Status: Current every day smoker tobacco type: cigarettes ROS ROS ED Constitutional Constitutional ED: Denies chills or fever(s) ENT ENT ED: Reports ear pain; Denies sore throat Cardiovascular Cardiovascular: Denies chest pain Respiratory/Chest Respiratory/Chest: Denies cough or dyspnea Gastrointestinal Gastrointestinal: Denies abdominal pain, diarrhea, nausea or vomiting Genitourinary Genitourinary ED: Denies dysuria Musculoskeletal Musculoskeletal: Denies myalgias Integumentary Denies rash Neurologic Neurologic: Denies headache(s) Hematologic/Lymphatic Hematologic/Lymphatic: Denies easy bleeding or easy bruising EXAM Physical Exam Const Vital Signs: 08/13/21 23:34 Temperature 97.6 F L Temperature Source Temporal Pulse Rate 87 Respiratory Rate 16 Blood Pressure 129/75 H Blood Pressure Mean 93 Pulse Ox 93 Oxygen Delivery Method Room Air Positive well nourished and well developed General Appearance ED: well developed HEENT Reports moist mucous membranes HEENT Narrative: The left canal and TM are normal. The right canal is obscured with a insect present consistent with patient's reported history. Once the insect is removed the canal is normal but the eardrum appears inflamed and irritated without obvious perforation. Eyes PERRL and EOMs intact bilaterally Neck supple Resp normal respiratory effort and clear to auscultation bilaterally Cardio regular rate and regular rhythm Extremity normal to inspection Neuro oriented x3 and CN's II-XII intact bilaterally Sensorium / Orientation: alert Psych mental status grossly normal Skin no rashes or lesions noted MDM MDM MDM Narrative Medical decision making narrative: Patient presented to the ER with report of an insect in her right ear. Exam did confirm. Let was placed in the ear to help with numbing and to drown the insect. Following this alligator forceps were used to remove the insect and 1 complete piece. Reevaluation shows the canal is normal but there is irritation to the eardrum consistent with the foreign body that was in there but no obvious perforation. Therefore patient is safe for discharge and can follow-up with her family doctor for repeat evaluation Discharge Plan Triage Chief Complaint: Ear Problem ED Provider: Tesfaye Goldstein Dx/Rx/DC Orders Clinical Impression: Acute foreign body of right ear canal Instructions: ED Foreign Body, Ear Canal (Removed) Prescriptions: New znlcflls-frrnlzvwr-NW 3.5-10,000-1 mg/mL-unit/mL-% drops,suspension 4 drp RIGHT EAR TID 5 Days Qty: 10 0RF No Action sertraline 100 MG tablet 100 mg PO QHS omeprazole 10 MG capsule 20 mg PO DAILY bupropion HCl 150 MG tablet sustained-release 12 hr 150 mg PO DAILY sennosides [senna] 8.6 MG tablet 8.6 mg PO DAILY lisinopril-hydrochlorothiazide [Zestoretic] 1 EACH tablet 1 ea PO DAILY pravastatin 40 MG tablet 40 mg PO QHS tizanidine 4 MG tablet 4 mg PO DAILY Verapamil Hcl [Verapamil Sr] 180 MG Cap24h.Pel 270 mg PO DAILY sennosides-docusate sodium 1 TABLET tablet 2 tab PO BID Qty: 120 0RF nystatin [Nyamyc] 1 APPLIC bottle 1 applic topical BID 0RF Protocol: *Topical Application Instructions APPLICATION INSTRUCTIONS: apply under bilateral breasts ondansetron 4 MG tablet 4 mg PO Q8H PRN PRN (Reason: Nausea) Qty: 14 0RF amoxicillin-pot clavulanate 875 MG tablet 875 mg PO Q12H Qty: 20 0RF Primary Care Provider: Dewayne Quan Referrals: Dewayne Quan MD [Primary Care Provider] - Disposition Disposition: Home, Self Care
[2021-08-14 00:40] VITALS: BP 110/74; PULSE 74; RESP 18; O2SAT 98
== END 2021-08-14 00:40 | disposition home or self-care (01) ==
PROVIDERS: Emergency Provider Emergency Medicine; PCP Family Medicine; Visit Provider Emergency Medicine
DX: T16.1XXA Foreign body in right ear, initial encounter (principal); F17.210 Nicotine dependence, cigarettes, uncomplicated; Y93.89 Activity, other specified; Y99.9 Unspecified external cause status; Y92.89 Other specified places as the place of occurrence of the external cause
CPT/HCPCS: 69200; 99282

== ENCOUNTER 2022-07-01 20:38 | Emergency (ER) | payer MEDICARE, MEDICAID, SELFPAY ==
[2022-07-01 20:40] VITALS: BP 143/90; PULSE 85; RESP 18; TEMP 36.7; O2SAT 98; BMI 47.9
--- NOTE | 2022-07-01 22:41 | EX.ED.UPPERE ---
HPI History of Present Illness Chief Complaint: Bite Informant: patient Narrative Narrative: Bit in the left wrist by her dog 3 days ago. She cleaned it and thought it would get better but it has continuously gotten worse. It is warm, red. She denies any fevers, chills, systemic symptoms. No pain elsewhere. [id number]-[id number]. She states the dog is not ill, it was upset with her because she pushed the dog on its but, and it turned around startled and bit her. PFSH PFSH Home Medications omeprazole 10 mg capsule,delayed release 20 mg PO DAILY GERD 07/31/13 [History Last Taken Unknown] sertraline 100 mg tablet 100 mg PO QHS Depression 07/31/13 [History Last Taken 06/24/17 21:12] Verapamil Hcl [Verapamil Sr] 270 mg PO DAILY blood pressure 06/25/17 [History Last Taken 06/24/17 21:38] bupropion HCl 150 mg tablet,12 hr sustained-release 150 mg PO DAILY Mood 06/25/17 [History Last Taken 06/25/17 08:56] lisinopril 20 mg-hydrochlorothiazide 12.5 mg tablet (Zestoretic) 1 ea PO DAILY Hypertension 06/25/17 [History Last Taken Unknown] pravastatin 40 mg tablet 40 mg PO QHS Cholestrol 06/25/17 [History Last Taken Unknown] sennosides 8.6 mg tablet (senna) 8.6 mg PO DAILY Bowel movement 06/25/17 [History Last Taken 06/25/17 08:56] tizanidine 4 mg tablet 4 mg PO DAILY Muscle relaxant 06/25/17 [History Last Taken Unknown] nystatin 100,000 unit/gram topical powder (Nyamyc) 1 applic topical BID 07/13/17 [Rx Last Taken Unknown] sennosides 8.6 mg-docusate sodium 50 mg tablet 2 tab PO BID #120 tabs 07/13/17 [Rx Last Taken Unknown] ondansetron 4 mg disintegrating tablet 4 mg PO Q8H PRN PRN Nausea #14 tabs 11/28/18 [Rx Last Taken Unknown] amoxicillin 875 mg-potassium clavulanate 125 mg tablet 875 mg PO Q12H #20 tabs 07/01/22 [Rx Last Taken Unknown] hydrocodone-acetaminophen 5-325mg 5mg-325mg 1 tab PO Q4H PRN PRN Pain 2 days #10 TABLETS 07/01/22 [Rx Last Taken Unknown] Allergy/AdvReac Type Severity Reaction Status Date / Time nickel Allergy Hives Verified 07/01/22 20:43 ibuprofen AdvReac Other Verified 07/01/22 20:43 metronidazole [From Flagyl] AdvReac Swelling Verified 07/01/22 20:43 Social History Smoking Status: Current every day smoker tobacco type: cigarettes ROS ROS ED Constitutional Constitutional ED: Denies chills or fever(s) Musculoskeletal Musculoskeletal: Reports extremity pain; Denies neck pain Integumentary Reports wounds; Denies Abrasions or rash Neurologic Neurologic: Denies paresthesias or weakness EXAM Physical Exam Const Vital Signs: 07/01/22 20:40 Temperature 98.0 F Temperature Source Temporal Pulse Rate 85 Respiratory Rate 18 Blood Pressure 143/90 H Blood Pressure Mean 107 Pulse Ox 98 Oxygen Delivery Method Room Air Positive well nourished and well developed General Appearance ED: well developed and NAD Neck full ROM and supple Back/Spine normal ROM and normal to inspection Extremity Extremity Narrative: Bite wounds with cellulitis to the left dorsal wrist, there are small wounds that are scabbed also in the volar aspect but it does not appear cellulitic although it is sore as well. Limited range of motion of the wrist but she is able to do short arc range of motion without significant discomfort. No bony tenderness. Also full range of motion of the fingers, but she is somewhat limited by pain there. All compartments are soft and nondistended including the thenar and hypothenar eminence. Full range of motion of the elbow and shoulder without difficulty. No lymphangitis. Cellulitis is mild and there is no abscess. There is no epitrochlear or axillary lymphadenopathy. Neuro oriented x3, no focal motor deficits and no sensory deficits noted Sensorium / Orientation: alert Psych mental status grossly normal and thought process normal Skin Skin Narrative: Mild cellulitis and tenderness surrounding puncture wound to left dorsal wrist, no abscess. The wounds appear fairly superficial, but I cannot rule out the possibility of punctures, they are all scabbed and without discharge or bleeding. MDM MDM MDM Narrative Medical decision making narrative: Patient does not need any of this opened up or cored out, there is no abscess and the cellulitis looks mild but her pain is worse than the cellulitis appears. She does not have compartment syndrome clinically. She is given IV Unasyn, pain medication, splint to use as needed for pain, and prescriptions for both Augmentin and [place] to use as needed for pain. Discharge Plan Triage Chief Complaint: Bite ED Provider: Delgado Santizo Dx/Rx/DC Orders Clinical Impression: Dog bite of left wrist with infection Instructions: ED Dog Bite Prescriptions: New hydrocodone-acetaminophen [hydrocodone-acetaminophen] 5-325 mg tablet 1 tab PO Q4H PRN PRN (Reason: Pain) 2 Days Qty: 10 0RF Continued sertraline 100 MG tablet 100 mg PO QHS omeprazole 10 MG capsule 20 mg PO DAILY bupropion HCl 150 MG tablet sustained-release 12 hr 150 mg PO DAILY sennosides [senna] 8.6 MG tablet 8.6 mg PO DAILY lisinopril-hydrochlorothiazide [Zestoretic] 1 EACH tablet 1 ea PO DAILY pravastatin 40 MG tablet 40 mg PO QHS tizanidine 4 MG tablet 4 mg PO DAILY Verapamil Hcl [Verapamil Sr] 180 MG Cap24h.Pel 270 mg PO DAILY sennosides-docusate sodium 1 TABLET tablet 2 tab PO BID Qty: 120 0RF nystatin [Nyamyc] 1 APPLIC bottle 1 applic topical BID 0RF Protocol: *Topical Application Instructions APPLICATION INSTRUCTIONS: apply under bilateral breasts ondansetron 4 MG tablet 4 mg PO Q8H PRN PRN (Reason: Nausea) Qty: 14 0RF amoxicillin-pot clavulanate 875 MG tablet 875 mg PO Q12H Qty: 20 0RF Discontinued moilpkbx-mdhvpqmwg-XM 3.5-10,000-1 mg/mL-unit/mL-% drops,suspension 4 drp RIGHT EAR TID 5 Days Qty: 10 0RF Primary Care Provider: Dewayne Quan Referrals: Dewayen Quan MD [Primary Care Provider] - 3-5 Days if not improving (Or return to the ER if getting worse) Disposition Disposition: Home, Self Care
[2022-07-01] MEDS: HYDROcodone Bitartrate/Apap 5/325 Tablet PO (22:55)
== END 2022-07-01 23:59 | disposition home or self-care (01) ==
PROVIDERS: Emergency Provider Emergency Medicine; PCP Family Medicine; Visit Provider Emergency Medicine
DX: S61.552A Open bite of left wrist, initial encounter (principal); F17.210 Nicotine dependence, cigarettes, uncomplicated; W54.0XXA Bitten by dog, initial encounter
CPT/HCPCS: 96365; 99285; J7050; A4216; J0295

== ENCOUNTER 2022-07-04 08:52 | Emergency (ER) | payer MEDICARE, MEDICAID, SELFPAY ==
[2022-07-04 08:52] VITALS: BP 118/76; PULSE 68; RESP 18; TEMP 36.9; O2SAT 97; BMI 47.5
--- NOTE | 2022-07-04 09:16 | EDS_ITS ---
HPI History of Present Illness Chief Complaint: Cellulitis Informant: patient Onset/Context/Timing Onset: Days (6) Context: Gradual Onset Timing: Continuous Quality: Throbbing, stabbing Location: Left wrist Worsened by: Movement Relieved by: Rest, elevation Narrative Narrative: Patient presents with redness and swelling to her left wrist area that has been getting progressively worse over the past week. Patient is was bitten by a dog 1 week ago. Patient was seen here in the emergency department 3 days ago. Patient was started on Augmentin. Patient was also given a prescription for hydrocodone. Patient states the redness and swelling is getting worse. Patient states she saw her primary care physician today for follow-up evaluation. Patient states that she was referred back to the emergency department because she felt it was getting worse. Patient does state that there was a question on her tetanus immunization status. Patient states her primary care physician looked it up and stated she was due for a tetanus shot since it has been more than 10 years. [facility] Medical History (Updated 07/04/22 @ 10:[address] Adan Werner, DO) COPD (chronic obstructive pulmonary disease) Depression GERD (gastroesophageal reflux disease) HTN (hypertension) Home Medications omeprazole 10 mg capsule,delayed release 20 mg PO DAILY GERD 07/31/13 [History Last Taken Unknown] sertraline 100 mg tablet 100 mg PO QHS Depression 07/31/13 [History Last Taken 06/24/17 21:12] Verapamil Hcl [Verapamil Sr] 270 mg PO DAILY blood pressure 06/25/17 [History Last Taken 06/24/17 21:38] bupropion HCl 150 mg tablet,12 hr sustained-release 150 mg PO DAILY Mood 06/25/17 [History Last Taken 06/25/17 08:56] lisinopril 20 mg-hydrochlorothiazide 12.5 mg tablet (Zestoretic) 1 ea PO DAILY Hypertension 06/25/17 [History Last Taken Unknown] pravastatin 40 mg tablet 40 mg PO QHS Cholestrol 06/25/17 [History Last Taken Unknown] sennosides 8.6 mg tablet (senna) 8.6 mg PO DAILY Bowel movement 06/25/17 [History Last Taken 06/25/17 08:56] tizanidine 4 mg tablet 4 mg PO DAILY Muscle relaxant 06/25/17 [History Last Taken Unknown] nystatin 100,000 unit/gram topical powder (Nyamyc) 1 applic topical BID 07/13/17 [Rx Last Taken Unknown] sennosides 8.6 mg-docusate sodium 50 mg tablet 2 tab PO BID #120 tabs 07/13/17 [Rx Last Taken Unknown] ondansetron 4 mg disintegrating tablet 4 mg PO Q8H PRN PRN Nausea #14 tabs 11/28/18 [Rx Last Taken Unknown] amoxicillin 875 mg-potassium clavulanate 125 mg tablet 875 mg PO Q12H #20 tabs 07/01/22 [Rx Last Taken Unknown] hydrocodone-acetaminophen 5-325mg 5mg-325mg 1 tab PO Q4H PRN PRN Pain 2 days #10 TABLETS 07/01/22 [Rx Last Taken Unknown] Allergy/AdvReac Type Severity Reaction Status Date / Time nickel Allergy Hives Verified 07/04/22 08:55 ibuprofen AdvReac Other Verified 07/04/22 08:55 metronidazole [From Flagyl] AdvReac Swelling Verified 07/04/22 08:55 Surgical History History of total hip replacement Social History Smoking Status: Current every day smoker tobacco type: cigarettes ROS ROS ED Constitutional Constitutional ED: Denies chills or fever(s) Eyes Eyes: Denies blurry vision or change in vision ENT ENT ED: Denies rhinorrhea or sore throat Cardiovascular Cardiovascular: Denies chest pain or palpitations Respiratory/Chest Respiratory/Chest: Denies cough or dyspnea Gastrointestinal Gastrointestinal: Denies nausea or vomiting Genitourinary Genitourinary ED: Denies dysuria or hematuria Musculoskeletal Musculoskeletal: Denies back pain or neck pain Integumentary Denies abscess or rash Neurologic Neurologic: Denies headache(s) or weakness Allergic/Immunologic Allergic/Immunologic ED: Denies mouth swelling or urticaria EXAM Physical Exam Const Vital Signs: 07/04/22 08:52 07/04/22 09:28 Temperature 98.4 F Temperature Source Temporal Pulse Rate 68 Respiratory Rate 18 Respiratory Effort Normal Respiratory Pattern Normal Blood Pressure 118/76 Blood Pressure Mean 90 Pulse Ox 97 Oxygen Delivery Method Room Air Positive well nourished, well developed and obese General Appearance ED: well developed and NAD Nutritional Appearance: obese HEENT Reports moist mucous membranes Neck supple and no JVD Extremity Extremity Narrative: There is some erythema and warmth over the dorsal aspect of the left distal forearm and wrist area. There is also some edema of the left hand. There is no obvious deformity. Range of motion was limited in all motions of the left wrist secondary to pain. There is no pain with short arc range of motion however. Radial pulses are equal bilaterally. Sensation was intact to light touch in the radial, median, and ulnar areas. Strength is 5/5 in the radial, median, and ulnar areas. Neuro oriented x3, CN's II-XII intact bilaterally and no sensory deficits noted Sensorium / Orientation: alert Motor Exam: strength 5/5 throughout Psych mental status grossly normal MDM MDM MDM Narrative Medical decision making narrative: Differential diagnosis includes cellulitis and abscess. CBC will be obtained to assess for leukocytosis and anemia. Basic metabolic profile will be obtained to assess for renal function and electrolyte abnormality. Blood cultures will be obtained to assess for sepsis. Lab Data Attestation: I reviewed the patient's lab results. Lab results narrative: CBC was reviewed and was within normal limits. Basic metabolic profile was reviewed and was essentially within normal limits. Labs: Laboratory Results - last 24 hr 07/04/22 07/04/22 09:35 09:35 WBC 9.4 RBC 4.44 Hgb 13.2 Hct 41.6 MCV 93.7 MCH 29.7 MCHC 31.7 L RDW Std Deviation 48.9 H RDW Coeff of [place] 14.1 Plt Count 317 MPV 10.0 Immature Gran % (Auto) 0.500 Neut % (Auto) 69.4 Lymph % (Auto) 17.7 L [place] % (Auto) 9.8 Eos % (Auto) 1.9 Baso % (Auto) 0.7 Absolute Neuts (auto) 6.5 Absolute Lymphs (auto) 1.66 Nucleated RBC % 0 Sodium 141 Potassium 3.7 Chloride 107 Carbon Dioxide 26.0 Anion Gap 8 BUN 25 H Creatinine 1.02 Estim Creat Clear Calc 42.45 Est GFR (MDRD) Af Amer 69 Est GFR (MDRD) Non-Af 57 L BUN/Creatinine Ratio 24.5 H Glucose 102 Calcium 9.2 Treatment and Re-Evaluation :: Patient was given a dose of Unasyn here. Patient was advised of the need for incision and drainage. Patient is agreeable with this. Informed consent was obtained. Patient was given the opportunity ask questions. Patient has no further questions. The area was cleaned with chlorhexidine prep. The area was anesthetized with 1% plain lidocaine locally. A small cruciate incision was made using an 11 blade scalpel. The wound was probed with hemostats. Loculations were broken up. A moderate amount of purulent drainage was expressed. The wound was irrigated with normal saline. The wound was left open. Bacitracin dressing was applied. Patient tolerated the procedure well. Patient was instructed to use warm compresses. Patient was instructed to follow-up with her primary care physician in 5 to 7 days. Patient understood and was agreeable with the plan. All questions were answered. Procedures Other Procedures Procedure(s): Patient was advised of the need for incision and drainage. Patient is agreeable with this. Informed consent was obtained. Patient was given the opportunity ask questions. Patient has no further questions. The area was cleaned with chlorhexidine prep. The area was anesthetized with 1% plain lidocaine locally. A small cruciate incision was made using an 11 blade scalpel. The wound was probed with hemostats. Loculations were broken up. A moderate amount of purulent drainage was expressed. The wound was irrigated with normal saline. The wound was left open. Patient tolerated the procedure well. Discharge Plan Triage Chief Complaint: Cellulitis ED Provider: Adan Werner Dx/Rx/DC Orders Clinical Impression: Cutaneous abscess of left wrist, Dog bite of left wrist with infection Instructions: ED Abscess Incision And Drainage, ED Dog Bite Prescriptions: No Action sertraline 100 MG tablet 100 mg PO QHS omeprazole 10 MG capsule 20 mg PO DAILY bupropion HCl 150 MG tablet sustained-release 12 hr 150 mg PO DAILY sennosides [senna] 8.6 MG tablet 8.6 mg PO DAILY lisinopril-hydrochlorothiazide [Zestoretic] 1 EACH tablet 1 ea PO DAILY pravastatin 40 MG tablet 40 mg PO QHS tizanidine 4 MG tablet 4 mg PO DAILY Verapamil Hcl [Verapamil Sr] 180 MG Cap24h.Pel 270 mg PO DAILY sennosides-docusate sodium 1 TABLET tablet 2 tab PO BID Qty: 120 0RF nystatin [Nyamyc] 1 APPLIC bottle 1 applic topical BID 0RF Protocol: *Topical Application Instructions APPLICATION INSTRUCTIONS: apply under bilateral breasts ondansetron 4 MG tablet 4 mg PO Q8H PRN PRN (Reason: Nausea) Qty: 14 0RF hydrocodone-acetaminophen [hydrocodone-acetaminophen] 5-325 mg tablet 1 tab PO Q4H PRN PRN (Reason: Pain) 2 Days Qty: 10 0RF amoxicillin-pot clavulanate 875 MG tablet 875 mg PO Q12H Qty: 20 0RF Primary Care Provider: Dewayne Quan Referrals: Dewayne Quan MD [Primary Care Provider] - 5-7 Days Disposition Disposition: Home, Self Care
[2022-07-04] MEDS: Morphine 4 MG/ML Syringe IV (09:50)
[2022-07-04] MEDS: Lidocaine 1% (20 ml mdv) 20 ML Vial INFILT (09:50)
[2022-07-04 09:55] LABS: Absolute Lymphocyte Count 1.66 X10^3/uL (0.83-4.51); Absolute Neutrophil Count 6.5 X10^3/uL (2.0-7.7); Basophil# 0.07 X10^3/uL; Basophil% 0.7 % (0-1); Eosinophil# 0.18 X10^3/uL; Eosinophils% 1.9 % (0-5); Hematocrit 41.6 % (37-47); Hemoglobin 13.2 g/dL (12.0-15.0); Lymphocyte # 1.66 X10^3/ul (0.83-4.51); Lymphocyte % 17.7 % (19-41); Mean Corp Hgb Conc 31.7 g/dL (32-36); Mean Corpuscular Hgb 29.7 pg (27.0-32.0); Mean Corpuscular Volume 93.7 fL (81-99); Monocyte# 0.92 X10^3/uL; Monocyte% 9.8 % (0-10); NRBC Flagged by Analyzer 0 % (0-5); Neutrophil # 6.49 X10^3/uL (2.7-7.7); Neutrophil % 69.4 % (47-70); Platelet Count 317 K/mm3 (150-450); RBC Distribution Width CV 14.1 % (11.6-14.6); RBC Distribution Width SD 48.9 fl (35.1-43.9); Red Blood Count 4.44 M/mm3 (4.2-5.4); White Blood Count 9.4 K/mm3 (4.4-11.0)
[2022-07-04 09:58] LABS: Anion Gap 8 (5-15); BUN 25 mg/dL (7-18); BUN/Creat Ratio 24.5 RATIO (10-20); Calcium,Total 9.2 mg/dL (8.5-10.1); Chloride 107 mmol/L (98-107); Creatinine, Serum 1.02 mg/dL (0.55-1.02); EST Glomerular Filtration Rate 57 mL/min (>60); Est Glom Filt Rate - Afr Amer 69 mL/min (>60); Estimated Creatinine Clearance 42.45 ml/min; Glucose 102 mg/dL (74-106); Potassium 3.7 mmol/L (3.5-5.1); Sodium Level 141 mmol/L (136-145)
[2022-07-04] MEDS: Diphth,Pertuss(Acell),Tet Vac 0.5 ML Vial IM (11:22)
== END 2022-07-04 11:37 | disposition home or self-care (01) ==
PROVIDERS: Emergency Provider Emergency Medicine; PCP Family Medicine; Visit Provider Emergency Medicine
DX: S61.552A Open bite of left wrist, initial encounter (principal); J44.9 Chronic obstructive pulmonary disease, unspecified; L02.414 Cutaneous abscess of left upper limb; I10 Essential (primary) hypertension; F17.210 Nicotine dependence, cigarettes, uncomplicated; W54.0XXA Bitten by dog, initial encounter; E66.9 Obesity, unspecified; Z23 Encounter for immunization
CPT/HCPCS: 10060; 80048; 85025; 87040; 90471; 96365; 96375; 99283; A4216; J0295

== ENCOUNTER 2022-07-06 17:29 | Emergency (ER) | payer MEDICARE, MEDICAID, SELFPAY ==
[2022-07-06 17:29] VITALS: BP 152/61; PULSE 82; RESP 16; TEMP 37; O2SAT 99; BMI 47.5
--- NOTE | 2022-07-06 19:09 | EX.ED.DYSGE1 ---
HPI History of Present Illness Chief Complaint: Cellulitis Detail of Chief Complaint: Dog bite left distal forearm Informant: patient Onset/Context/Timing Onset: Days (Patient was initially bit over a week ago. She was seen in the emergency room placed on antibiotics. She then returned this past weekend and had incision made.) Context: Sudden Onset Timing: Continuous Quality: At abscess dorsal side left forearm Location: Dorsal surface left forearm Current Severity: Mild Maximum Severity: Moderate Worsened by: Dog bite Relieved by: Nothing Associated Symptoms Associated Symptoms: Edema of left hand and fingers Narrative Narrative: Patient is a 71-year-old [id number]-kxubflar woman who sustained dog bite to the distal left forearm. She was placed on Augmentin for prophylaxis. Patient subsequently developed infection. She had I&D performed this past weekend. She returns because of significant swelling. The swelling occurred 24 to 48 hours prior to her presentation. Patient denies fever, chills night sweats. Patient denies history of diabetes. She is on no immunosuppressive meds. She denies paresthesia, anesthesia or motor. She states she has not been using that extremity much. Prior similar symptoms: Yes Recent Illness/Hospitalization: Yes [facility] Medical History COPD (chronic obstructive pulmonary disease) Depression GERD (gastroesophageal reflux disease) HTN (hypertension) Home Medications omeprazole 10 mg capsule,delayed release 20 mg PO DAILY GERD 07/31/13 [History Last Taken Unknown] sertraline 100 mg tablet 100 mg PO QHS Depression 07/31/13 [History Last Taken 06/24/17 21:12] Verapamil Hcl [Verapamil Sr] 270 mg PO DAILY blood pressure 06/25/17 [History Last Taken 06/24/17 21:38] bupropion HCl 150 mg tablet,12 hr sustained-release 150 mg PO DAILY Mood 06/25/17 [History Last Taken 06/25/17 08:56] lisinopril 20 mg-hydrochlorothiazide 12.5 mg tablet (Zestoretic) 1 ea PO DAILY Hypertension 06/25/17 [History Last Taken Unknown] pravastatin 40 mg tablet 40 mg PO QHS Cholestrol 06/25/17 [History Last Taken Unknown] sennosides 8.6 mg tablet (senna) 8.6 mg PO DAILY Bowel movement 06/25/17 [History Last Taken 06/25/17 08:56] tizanidine 4 mg tablet 4 mg PO DAILY Muscle relaxant 06/25/17 [History Last Taken Unknown] nystatin 100,000 unit/gram topical powder (Nyamyc) 1 applic topical BID 07/13/17 [Rx Last Taken Unknown] sennosides 8.6 mg-docusate sodium 50 mg tablet 2 tab PO BID #120 tabs 07/13/17 [Rx Last Taken Unknown] ondansetron 4 mg disintegrating tablet 4 mg PO Q8H PRN PRN Nausea #14 tabs 11/28/18 [Rx Last Taken Unknown] amoxicillin 875 mg-potassium clavulanate 125 mg tablet 875 mg PO Q12H #20 tabs 07/01/22 [Rx Last Taken Unknown] hydrocodone-acetaminophen 5-325mg 5mg-325mg 1 tab PO Q4H PRN PRN Pain 2 days #10 TABLETS 07/01/22 [Rx Last Taken Unknown] hydrocodone-acetaminophen 5-325mg 5mg-325mg 1 tab PO Q6H PRN PRN Pain 3 days #10 TABLETS 07/06/22 [Rx Last Taken Unknown] Allergy/AdvReac Type Severity Reaction Status Date / Time nickel Allergy Hives Verified 07/04/22 08:55 ibuprofen AdvReac Other Verified 07/04/22 08:55 metronidazole [From Flagyl] AdvReac Swelling Verified 07/04/22 08:55 Surgical History History of total hip replacement Social History (Updated 07/06/22 @ 19:[address] Marcus Westbrook MD) household members: none Smoking Status: Current every day smoker tobacco type: cigarettes substance use type: does not use ROS ROS ED Constitutional Constitutional ED: Denies chills, fever(s), subjective, sweats or weight loss Cardiovascular Cardiovascular: Denies chest pain Gastrointestinal Gastrointestinal: Denies nausea or vomiting Musculoskeletal Musculoskeletal: Denies arthralgias, back pain, myalgias or neck pain Integumentary Reports abscess, Abrasions and rash Neurologic Neurologic: Denies headache(s), paresthesias or weakness Hematologic/Lymphatic Hematologic/Lymphatic: Reports systems reviewed and no addt'l complaints, except as documented EXAM Physical Exam Const Vital Signs: 07/06/22 17:29 Temperature 98.6 F Temperature Source Temporal Pulse Rate 82 Respiratory Rate 16 Blood Pressure 152/61 H Blood Pressure Mean 91 Pulse Ox 99 Oxygen Delivery Method Room Air Positive well nourished, well developed and obese General Appearance ED: well developed and NAD; Negative for cyanotic, diaphoretic or pallor Nutritional Appearance: obese HEENT Reports moist mucous membranes HEENT Narrative: Head is atraumatic normocephalic. Ears are normal. Nares are patent. Posterior pharynx is normal. Eyes PERRL and EOMs intact bilaterally General Eye ED: Negative for pale conjunctiva or scleral icterus Neck no lymphadenopathy, supple and no JVD Chest Wall inspection of chest normal and palpation of chest normal Resp normal respiratory effort and clear to auscultation bilaterally Cardio regular rate, regular rhythm, S1 normal heart sound, S2 normal heart sound and no murmurs Back/Spine no CVA tenderness Extremity Negative for normal to inspection Extremity Narrative: There is an abscess dorsal surface of the left forearm. Puncture wounds noted from dog bite. There is slight discoloration. There is no lymphangitis. There is no epitrochlear lymphadenopathy. Patient does have dependent edema of her hand due to lack of use. Neuro oriented x3, CN's II-XII intact bilaterally and no sensory deficits noted Neuro Narrative: Median, radial and ulnar intact. Sensorium / Orientation: alert Psych mental status grossly normal Skin no rashes or lesions noted, no wounds and skin turgor normal General Skin Exam: Negative for jaundice or pallor Wounds: wounds noted MDM MDM MDM Narrative Medical decision making narrative: Patient inquired why she was not receiving IV antibiotic. She was informed IV antibiotics to treat abscesses. Abscesses were treated with incision and drainage. She also asked if I would be changing her antibiotic. I informed her there was no need to change her antibiotics. Antibiotics do not treat abscesses. Abscesses are treated with incision and drainage. Presently there is no evidence of cellulitis. Therefore, per the literature there is no indication for antibiotics. Procedures Other Procedures Procedure(s): 1. I&D: Patient was consented for I&D of abscess due to dog bite dorsal surface left forearm. Patient explained risk benefits and complication potential complications. She gave verbal consent. Patient was prepped draped sterile fashion. The area was Nestabs by local infiltration and field block. After waiting 1 to 2 minutes an incision was made using a 10 blade. Incision is 2-1/2 cm in length. There is significant mount of purulent material that flowed from the wound. Blunt dissection was undertaken with more purulent material noted. Cavity was irrigated. Wick was placed. Patient was instructed to continue taking antibiotics and follow-up in 2 to 3 days to have wick removed. Patient was asked if she had any questions. Her questions were answered. Discharge Plan Triage Chief Complaint: Cellulitis ED Provider: Marcus Westbrook Dx/Rx/DC Orders Clinical Impression: Abscess of forearm, left, Infected dog bite of forearm Instructions: ED Abscess Incision And Drainage Prescriptions: New hydrocodone-acetaminophen [hydrocodone-acetaminophen] 5-325 mg tablet 1 tab PO Q6H PRN PRN (Reason: Pain) 3 Days Qty: 10 0RF No Action sertraline 100 MG tablet 100 mg PO QHS omeprazole 10 MG capsule 20 mg PO DAILY bupropion HCl 150 MG tablet sustained-release 12 hr 150 mg PO DAILY sennosides [senna] 8.6 MG tablet 8.6 mg PO DAILY lisinopril-hydrochlorothiazide [Zestoretic] 1 EACH tablet 1 ea PO DAILY pravastatin 40 MG tablet 40 mg PO QHS tizanidine 4 MG tablet 4 mg PO DAILY Verapamil Hcl [Verapamil Sr] 180 MG Cap24h.Pel 270 mg PO DAILY sennosides-docusate sodium 1 TABLET tablet 2 tab PO BID Qty: 120 0RF nystatin [Nyamyc] 1 APPLIC bottle 1 applic topical BID 0RF Protocol: *Topical Application Instructions APPLICATION INSTRUCTIONS: apply under bilateral breasts ondansetron 4 MG tablet 4 mg PO Q8H PRN PRN (Reason: Nausea) Qty: 14 0RF hydrocodone-acetaminophen [hydrocodone-acetaminophen] 5-325 mg tablet 1 tab PO Q4H PRN PRN (Reason: Pain) 2 Days Qty: 10 0RF amoxicillin-pot clavulanate 875 MG tablet 875 mg PO Q12H Qty: 20 0RF Primary Care Provider: Dewayne Quan Referrals: Dewayne Quan MD [Primary Care Provider] - Activity Restrictions/Additional Instructions: Follow-up with your doctor in 2 to 3 days to have wick removed Elevate your hand above your nose to decrease swelling and increased use of your left hand Continue taking antibiotics you were prescribed until gone Disposition Disposition: Home, Self Care
[2022-07-06] MEDS: Lidocaine 1% (20 ml mdv) 20 ML Vial INFILT (20:12)
== END 2022-07-06 20:14 | disposition home or self-care (01) ==
PROVIDERS: Emergency Provider Emergency Medicine; PCP Family Medicine; Visit Provider Emergency Medicine
DX: L02.414 Cutaneous abscess of left upper limb (principal); J44.9 Chronic obstructive pulmonary disease, unspecified; F17.210 Nicotine dependence, cigarettes, uncomplicated; I10 Essential (primary) hypertension; R60.0 Localized edema; E66.9 Obesity, unspecified; S51.852A Open bite of left forearm, initial encounter; W54.0XXA Bitten by dog, initial encounter
CPT/HCPCS: 10061; 10060; 99283; A4216

== ENCOUNTER → 2022-08-20 | Outpatient (CLI) | payer MEDICARE, MEDICAID, SELFPAY | END | disposition home or self-care (01) | LOC: SL 20:20 | PROVIDERS: PCP Family Medicine; Referring Provider Psychiatry & Neurology Sleep Medicine; Visit Provider Psychiatry & Neurology Sleep Medicine | DX: G47.34 Idiopathic sleep related nonobstructive alveolar hypoventilation (principal); E66.01 Morbid (severe) obesity due to excess calories; Z68.42 Body mass index [BMI] 45.0-49.9, adult; G47.33 Obstructive sleep apnea (adult) (pediatric) | CPT/HCPCS: 95811 ==

== ENCOUNTER → 2022-10-07 | Outpatient (CLI) | payer MEDICARE, MEDICAID, SELFPAY | END | disposition home or self-care (01) | LOC: SL 11:11 | PROVIDERS: PCP Family Medicine; Visit Provider Psychiatry & Neurology Sleep Medicine | DX: Z00.00 Encounter for general adult medical examination without abnormal findings (principal) ==

== ENCOUNTER 2022-10-17 19:15 | Emergency (ER) | payer MEDICARE, MEDICAID, SELFPAY ==
[2022-10-17 19:15] VITALS: RESP 15
[2022-10-17 19:16] VITALS: BP 166/92; PULSE 78; RESP 16; TEMP 36.6; O2SAT 96; BMI 47.2
--- NOTE | 2022-10-17 19:26 | EX.ED.UPPERE ---
HPI History of Present Illness Chief Complaint: Bite Informant: patient Onset/Context/Timing Onset: Today (JPTA) Context: Sudden Onset Timing: Continuous Quality of Pain: - (sore) Location: R wrist/FA Current Severity: Mild Maximum Severity: Mild Worsened by: palpation Relieved by: leaving alone Associated Symptoms Associated Symptoms: Negative for Parasthesia, Weakness or Loss of Funtion Narrative Narrative: Patient's own pet dog had a jordyn in his mouth and she was trying to help remove it, the dog reflexively bit her in the wrist and as she tried to get her arm out, skin tore on the dog's teeth. [id number]. No problems moving her arm or hand, she does not feel like there is pain anywhere but the skin. Tetanus Immunization: <5 years PFSH [facility] Medical History COPD (chronic obstructive pulmonary disease) Depression GERD (gastroesophageal reflux disease) HTN (hypertension) Home Medications omeprazole 10 mg capsule,delayed release 20 mg PO DAILY GERD 07/31/13 [History Last Taken Unknown] sertraline 100 mg tablet 100 mg PO QHS Depression 07/31/13 [History Last Taken 06/24/17 21:12] Verapamil Hcl [Verapamil Sr] 270 mg PO DAILY blood pressure 06/25/17 [History Last Taken 06/24/17 21:38] bupropion HCl 150 mg tablet,12 hr sustained-release 150 mg PO DAILY Mood 06/25/17 [History Last Taken 06/25/17 08:56] lisinopril 20 mg-hydrochlorothiazide 12.5 mg tablet (Zestoretic) 1 ea PO DAILY Hypertension 06/25/17 [History Last Taken Unknown] pravastatin 40 mg tablet 40 mg PO QHS Cholestrol 06/25/17 [History Last Taken Unknown] sennosides 8.6 mg tablet (senna) 8.6 mg PO DAILY Bowel movement 06/25/17 [History Last Taken 06/25/17 08:56] tizanidine 4 mg tablet 4 mg PO DAILY Muscle relaxant 06/25/17 [History Last Taken Unknown] nystatin 100,000 unit/gram topical powder (Nyamyc) 1 applic topical BID 07/13/17 [Rx Last Taken Unknown] sennosides 8.6 mg-docusate sodium 50 mg tablet 2 tab PO BID #120 tabs 07/13/17 [Rx Last Taken Unknown] ondansetron 4 mg disintegrating tablet 4 mg PO Q8H PRN PRN Nausea #14 tabs 11/28/18 [Rx Last Taken Unknown] amoxicillin 875 mg-potassium clavulanate 125 mg tablet 875 mg (0.875 x 875-125 mg) PO Q12H #20 tabs 07/01/22 [Rx Last Taken Unknown] hydrocodone-acetaminophen 5-325mg 5mg-325mg 1 tab PO Q4H PRN PRN Pain 2 days #10 TABLETS 07/01/22 [Rx Last Taken Unknown] hydrocodone-acetaminophen 5-325mg 5mg-325mg 1 tab PO Q6H PRN PRN Pain 3 days #10 TABLETS 07/06/22 [Rx Last Taken Unknown] amoxicillin 875 mg-potassium clavulanate 125 mg tablet 875 mg (0.875 x 875-125 mg) PO Q12H #14 TABLETS 10/17/22 [Rx Last Taken Unknown] Allergy/AdvReac Type Severity Reaction Status Date / Time nickel Allergy Hives Verified 10/17/22 19:17 ibuprofen AdvReac Other Verified 10/17/22 19:17 metronidazole [From Flagyl] AdvReac Swelling Verified 10/17/22 19:17 Surgical History History of total hip replacement Social History (Updated 07/06/22 @ 19:[address] Marcus Westbrook MD) household members: none Smoking Status: Current every day smoker tobacco type: cigarettes substance use type: does not use ROS ROS ED Constitutional Constitutional ED: Denies chills or fever(s) Musculoskeletal Musculoskeletal: Reports extremity pain; Denies neck pain Integumentary Reports as per HPI and laceration; Denies Abrasions or rash Neurologic Neurologic: Denies paresthesias or weakness EXAM Physical Exam Const Vital Signs: 10/17/22 19:16 Temperature 98 F Temperature Source Temporal Pulse Rate 78 Respiratory Rate 16 Blood Pressure 166/92 H Blood Pressure Mean 116 Pulse Ox 96 Oxygen Delivery Method Room Air Positive well nourished and well developed General Appearance ED: well developed and NAD Neck full ROM and supple Back/Spine normal ROM and normal to inspection Neuro oriented x3, no focal motor deficits and no sensory deficits noted Sensorium / Orientation: alert Psych mental status grossly normal and thought process normal Skin Skin Narrative: Skin tear/laceration, stellate, longitudinally dorsal right wrist into the distal forearm, there is a subcutaneous portion of it that goes into subcutaneous fat proximally, but the majority of it is only skin-deep and not through the entire dermis otherwise. Dried blood but no active bleeding, no foreign material. No bony tenderness. Entire skin tear/laceration is approximately 6 centimeters long. There is an additional 1.5 cm horizontal/transverse clean appearing laceration subcutaneous distal to this and a little radial on the dorsum of the right hand. An additional 0.5 cm partial-thickness laceration dorsal right thumb, just proximal to the MCPJ, and yet an additional 1 cm laceration at the volar aspect of the right wrist subcutaneous linear. Rashes: no rashes MDM MDM MDM Narrative Medical decision making narrative: No bony injury or foreign material, wounds are not deep they are subcutaneous mostly and I do not think she needs an x-ray to look for foreign body or bony involvement. All the lacerations were repaired, except for a couple small ones which were left alone, there is some skin tear involvement that was left alone as well. The skin tear/laceration needed pull together because much of it involves subcutaneous tissue. This was done without difficulty and did not tear, she was given appropriate discharge instructions, suture removal instructions, as well as antibiotic she was started on Augmentin here. Procedures Lacerations R dorsal forearm/wrist: Length: 6 cm Depth: Sub Q Shape: Stellate Prep: Sterile Conditions and Chlorhexadine Laceration repair: Irrigated, Lidocaine with epi (1%, 4cc), Local, Skin sutures and Wound explored Irrigated (ml): 80 Number of Sutures/[place]: 9 Suture Information: Ethilon, Simple and 4-0 R hand: Length: 1.5 cm Depth: Sub Q Shape: Linear Prep: Sterile Conditions and Chlorhexadine Laceration repair: Irrigated, Lidocaine with epi (1%, 1cc), Local and Skin sutures Irrigated (ml): 30 Number of Sutures/[place]: 1 Suture Information: Ethilon, Horizontal, Mattress and 4-0 R volar wrist: Length: 1 cm Depth: Sub Q Shape: Linear Prep: Sterile Conditions and Chlorhexadine Laceration repair: Irrigated and Skin sutures Irrigated (ml): 30 Number of Sutures/[place]: 1 Suture Information: Ethilon, Simple and 4-0 Discharge Plan Triage Chief Complaint: Bite ED Provider: Delgado Santizo Dx/Rx/DC Orders Clinical Impression: Open wound of right wrist due to dog bite Instructions: ED Dog Bite Prescriptions: New amoxicillin-pot clavulanate [amoxicillin-pot clavulanate] 875-125 mg tablet 875 mg PO Q12H Qty: 14 0RF No Action sertraline 100 MG tablet 100 mg PO QHS omeprazole 10 MG capsule 20 mg PO DAILY bupropion HCl 150 MG tablet sustained-release 12 hr 150 mg PO DAILY sennosides [senna] 8.6 MG tablet 8.6 mg PO DAILY lisinopril-hydrochlorothiazide [Zestoretic] 1 EACH tablet 1 ea PO DAILY pravastatin 40 MG tablet 40 mg PO QHS tizanidine 4 MG tablet 4 mg PO DAILY Verapamil Hcl [Verapamil Sr] 180 MG Cap24h.Pel 270 mg PO DAILY sennosides-docusate sodium 1 TABLET tablet 2 tab PO BID Qty: 120 0RF nystatin [Nyamyc] 1 APPLIC bottle 1 applic topical BID 0RF Protocol: *Topical Application Instructions APPLICATION INSTRUCTIONS: apply under bilateral breasts ondansetron 4 MG tablet 4 mg PO Q8H PRN PRN (Reason: Nausea) Qty: 14 0RF hydrocodone-acetaminophen [hydrocodone-acetaminophen] 5-325 mg tablet 1 tab PO Q4H PRN PRN (Reason: Pain) 2 Days Qty: 10 0RF amoxicillin-pot clavulanate 875 MG tablet 875 mg PO Q12H Qty: 20 0RF hydrocodone-acetaminophen [hydrocodone-acetaminophen] 5-325 mg tablet 1 tab PO Q6H PRN PRN (Reason: Pain) 3 Days Qty: 10 0RF Primary Care Provider: Dewayne Quan Referrals: Dewayne Quan MD [Primary Care Provider] - 10-14 Days suture removal Disposition Disposition: Home, Self Care
[2022-10-17] MEDS: Lidocaine 1% (20 ml mdv) 20 ML Vial INFILT (19:45)
[2022-10-17] MEDS: Amox/Clavulanate 875 MG Tablet PO (19:45)
[2022-10-17 20:53] VITALS: BP 166/92; PULSE 78; RESP 16; O2SAT 96
== END 2022-10-17 21:24 | disposition home or self-care (01) ==
PROVIDERS: Emergency Provider Emergency Medicine; PCP Family Medicine; Visit Provider Emergency Medicine
DX: S61.551A Open bite of right wrist, initial encounter (principal); J44.9 Chronic obstructive pulmonary disease, unspecified; I10 Essential (primary) hypertension; F17.210 Nicotine dependence, cigarettes, uncomplicated; W54.0XXA Bitten by dog, initial encounter
CPT/HCPCS: 12004; 99285

== ENCOUNTER → 2022-10-20 | Outpatient (CLI) | payer MEDICARE, MEDICAID, SELFPAY ==
--- NOTE | 2022-10-20 13:02 | STRESSREP ---
Stress Test Report Date: 10/20/2022 Procedure: Exercise tolerance test Indications: Dyspnea Consent: Per the patient Procedure: The patient exercised on a Domingo protocol for 1 minute and 24 seconds achieving a peak heart rate of 137 bpm (91% predicted maximal heart rate) with a peak blood pressure 164/86 mmHg and a peak MET capacity of approximately 4.6 MET's. The baseline ECG demonstrated sinus rhythm. The peak exercise ECG demonstrated no ischemic changes. There were no cardiac dysrhythmias pretest, during exercise, or recovery. The functional capacity was considered poor. The patient had no complaints of chest discomfort during exercise or recovery. The examination was discontinued secondary to patient complaints of dyspnea and anxiety. Impression: 1. Technically adequate (percent predicted maximal heart rate greater than 85%) exercise tolerance test 2. Peak exercise ECG with no ischemic changes 3. There were no cardiac dysrhythmias during exercise or recovery 4. Poor functional capacity This note was generated with [employer] software. It may contain incorrect words, spelling, and punctuation that were not noted in checking the note before signing.
== END | disposition home or self-care (01) ==
LOC: CVS 11:29
PROVIDERS: PCP Family Medicine; Referring Provider Family Medicine; Visit Provider Family Medicine
DX: I25.10 Atherosclerotic heart disease of native coronary artery without angina pectoris (principal); I25.84 Coronary atherosclerosis due to calcified coronary lesion; R06.02 Shortness of breath; R53.83 Other fatigue; Z82.49 Family history of ischemic heart disease and other diseases of the circulatory system
CPT/HCPCS: 93017

== ENCOUNTER 2023-03-08 21:40 | Emergency (ER) | payer MEDICARE, MEDICAID, SELFPAY ==
[2023-03-08 21:40] VITALS: BP 133/73; PULSE 91; RESP 18; TEMP 36.6; O2SAT 94; BMI 47.5
--- NOTE | 2023-03-08 22:14 | EDS_ITS ---
HPI History of Present Illness Chief Complaint: Complaint Narrative Narrative: 72-year-old female past medical history of hypertension, frequent urinary tract infections, presents with 2 chief complaints, mainly her continued urinary frequency, and right low back pain radiating down towards her knee. She relates history that she had a right hip replacement approximately [address] Pratt. At that time, she had problems with frequent urinary tract infections, and was told to be careful because the hip joint could get infected. Approximately 3 weeks ago, she was treated for UTI with urinary frequency symptoms and took antibiotics for 5 days. She is not quite sure if it cleared up because she is still having urinary frequency. She denies any fevers or chills, no nausea or vomiting. At about the same time, she developed right hip and low back pain that radiates towards the front, on the lateral thigh and towards her knee. She denies any loss of bowel or bladder but does admit that she tried to take care of her small dog and has to given medication and has been bending and twisting in certain ways that she had not previously. It is worsened by lying down but alleviated by sitting. [facility] Medical History COPD (chronic obstructive pulmonary disease) Depression GERD (gastroesophageal reflux disease) HTN (hypertension) Home Medications omeprazole 10 mg capsule,delayed release 20 mg PO DAILY GERD 07/31/13 [History Last Taken Unknown] sertraline 100 mg tablet 100 mg PO QHS Depression 07/31/13 [History Last Taken 06/24/17 21:12] Verapamil Hcl [Verapamil Sr] 270 mg PO DAILY blood pressure 06/25/17 [History Last Taken 06/24/17 21:38] bupropion HCl 150 mg tablet,12 hr sustained-release 150 mg PO DAILY Mood 06/25/17 [History Last Taken 06/25/17 08:56] lisinopril 20 mg-hydrochlorothiazide 12.5 mg tablet (Zestoretic) 1 ea PO DAILY Hypertension 06/25/17 [History Last Taken Unknown] pravastatin 40 mg tablet 40 mg PO QHS Cholestrol 06/25/17 [History Last Taken Unknown] sennosides 8.6 mg tablet (senna) 8.6 mg PO DAILY Bowel movement 06/25/17 [History Last Taken 06/25/17 08:56] tizanidine 4 mg tablet 4 mg PO DAILY Muscle relaxant 06/25/17 [History Last Taken Unknown] nystatin 100,000 unit/gram topical powder (Nyamyc) 1 applic topical BID 07/13/17 [Rx Last Taken Unknown] sennosides 8.6 mg-docusate sodium 50 mg tablet 2 tab PO BID #120 tabs 07/13/17 [Rx Last Taken Unknown] ondansetron 4 mg disintegrating tablet 4 mg PO Q8H PRN PRN Nausea #14 tabs 11/28/18 [Rx Last Taken Unknown] amoxicillin 875 mg-potassium clavulanate 125 mg tablet 875 mg (0.875 x 875-125 mg) PO Q12H #20 tabs 07/01/22 [Rx Last Taken Unknown] hydrocodone-acetaminophen 5-325mg 5mg-325mg 1 tab PO Q4H PRN PRN Pain 2 days #10 TABLETS 07/01/22 [Rx Last Taken Unknown] hydrocodone-acetaminophen 5-325mg 5mg-325mg 1 tab PO Q6H PRN PRN Pain 3 days #10 TABLETS 07/06/22 [Rx Last Taken Unknown] amoxicillin 875 mg-potassium clavulanate 125 mg tablet 875 mg (0.875 x 875-125 mg) PO Q12H #14 TABLETS 10/17/22 [Rx Last Taken Unknown] Allergy/AdvReac Type Severity Reaction Status Date / Time nickel Allergy Hives Verified 03/08/23 21:43 ibuprofen AdvReac Other Verified 03/08/23 21:43 metronidazole [From Flagyl] AdvReac Swelling Verified 03/08/23 21:43 Surgical History History of total hip replacement Social History household members: none Smoking Status: Current every day smoker tobacco type: cigarettes substance use type: does not use ROS ROS ED ROS Narrative Constitutional: No fever, no chills. HEENT: No sore throat. No neck pain. No loss of vision. No rhinorrhea. Cardiovascular: No chest pain. No palpitations. No pedal edema. Respiratory: No cough, no shortness of breath. Abdominal: No abdominal pain. No nausea. No vomiting. Genitourinary: No dysuria. No hematuria. Urinary frequency. Musculoskeletal: No myalgias. Low back pain. Positive right lateral thigh radiating towards knee pain. Pain in right hip. Neurologic: No headaches. No dizziness. No lightheadedness. Skin: No rash. No change in color. Psychiatric: No depression. No anxiety. EXAM Physical Exam Narrative Exam Narrative: Afebrile. Vital signs noted. HEENT: Normocephalic. Atraumatic. PERRL, EOMI. Neck soft and supple. No point tenderness or step off. Cardiovascular: Regular rate and rhythm. No murmurs, rubs, or gallops appreciated. Respiratory: No tachypnea. Lungs clear to auscultation bilaterally. Gastrointestinal: Abdomen soft, nontender, please, with normoactive bowel sounds. No rebound or guarding. Neurological: Awake. Alert. Nonfocal, nonlateralizing. Skin: No rash. Normal color. No pallor. Musculoskeletal: No pedal edema. Full range of motion extremities. Will to transfer and ambulate in the ED. Mild tenderness to palpation right low paraspi nal lumbar musculature with minimal tenderness in right sciatic notch. Mild tenderness over sacroiliac joint. Const Vital Signs: 03/08/23 21:40 Temperature 98 F Temperature Source Temporal Pulse Rate 91 Respiratory Rate 18 Blood Pressure 133/73 H Blood Pressure Mean 93 Pulse Ox 94 Oxygen Delivery Method Room Air MDM MDM MDM Narrative Medical decision making narrative: Concern is for, sacroiliitis versus lumbar radiculopathy/sciatica versus UTI. I have low concern for septic joint as she is not febrile or tachycardic. I do not feel laboratory work is indicated/blood work, but urine sample may have been sent to look for infection. I will obtain x-rays of her lumbar spine and upper pelvis and right hip to rule out any dislocation or periprosthetic fracture. She may have spinal stenosis and DJD as well. I reviewed her urinalysis and while she has nitrite positive, there are 0-5 WBCs and 0-5 RBCs. I will refrain from antibiotics and send her urine for culture. This was performed through shared decision-making with the patient as she had already completed 5 days of an antibiotic. She is more concerned about septic joint of her right hip. She was seen ambulating from the bathroom independently. I have low suspicion for this. I do not feel blood work is indicated. X-rays were obtained of the lumbar spine and 2-3 views and of the right hip and pelvis and 2-3 views and interpreted by myself independently. I see no evidence of fracture or dislocation, but DJD of the spine. I reviewed the radiology report which confirms my independent interpretation. At this point in time, in discussion with the patient, she was told that she was having back and hip issues at the same time 5 years ago. She did not want surgery on her back. However, I do feel that she may need to revisit this as she is having more radicular pains. She will continue [id number] medications. She will follow-up with her primary care provider for possible referral to orthopedic spine. I do not feel narcotics are indicated. Return instructions to the emergency department were reviewed. Disposition is discharged home in stable condition. History & Record Review Discussion w/independent historian: Patient Lab Data Attestation: I reviewed the patient's lab results. Labs: Laboratory Results - last 24 hr 03/08/23 22:16 Urine Color Yellow Urine Clarity Sl. Cloudy Urine pH 6.0 Ur Specific [place] 1.015 Urine Protein 15 H Urine Glucose (UA) Normal Urine Ketones Negative Urine Occult Blood 25 H Urine Nitrite Positive H Urine Bilirubin Negative Urine Urobilinogen Normal Ur Leukocyte Esterase 25 H Urine RBC 0-5 SEEN Urine WBC 0-5 SEEN Ur Squamous Epith Cells 0-5 SEEN Amorphous Sediment 1+ URATE Urine Bacteria 2+ Urine Mucus 0 SEEN Radiography Diagnostic Testing: Clinical Impression(s) from Imaging Studies Hip/Pelvis X-Ray 03/08/23 22:40 IMPRESSION: Right-sided hip prosthesis in place with normal alignment. No acute fracture or subluxation seen. Multilevel degenerative disease as described. Electronically Signed: Madelyn Mckinney MD at 22:52 EST , Lumbar Spine X-Ray 03/08/23 22:40 IMPRESSION: Multilevel degenerative disease with no acute fracture or spondylolisthesis. Electronically Signed: Madelyn Mckinney MD at 22:53 EST , Discharge Plan Triage Chief Complaint: Complaint ED Provider: Chon Chaudhry Dx/Rx/DC Orders Clinical Impression: Urinary frequency, Degenerative joint disease (DJD) of lumbar spine, Lumbar radiculopathy, right Instructions: ED Degenerative Disk Disease, ED Sciatica Prescriptions: No Action sertraline 100 MG tablet 100 mg PO QHS omeprazole 10 MG capsule 20 mg PO DAILY bupropion HCl 150 MG tablet sustained-release 12 hr 150 mg PO DAILY sennosides [senna] 8.6 MG tablet 8.6 mg PO DAILY lisinopril-hydrochlorothiazide [Zestoretic] 1 EACH tablet 1 ea PO DAILY pravastatin 40 MG tablet 40 mg PO QHS tizanidine 4 MG tablet 4 mg PO DAILY Verapamil Hcl [Verapamil Sr] 180 MG Cap24h.Pel 270 mg PO DAILY sennosides-docusate sodium 1 TABLET tablet 2 tab PO BID Qty: 120 0RF nystatin [Nyamyc] 1 APPLIC bottle 1 applic topical BID 0RF Protocol: *Topical Application Instructions APPLICATION INSTRUCTIONS: apply under bilateral breasts ondansetron 4 MG tablet 4 mg PO Q8H PRN PRN (Reason: Nausea) Qty: 14 0RF hydrocodone-acetaminophen [hydrocodone-acetaminophen] 5-325 mg tablet 1 tab PO Q4H PRN PRN (Reason: Pain) 2 Days Qty: 10 0RF amoxicillin-pot clavulanate 875 MG tablet 875 mg PO Q12H Qty: 20 0RF hydrocodone-acetaminophen [hydrocodone-acetaminophen] 5-325 mg tablet 1 tab PO Q6H PRN PRN (Reason: Pain) 3 Days Qty: 10 0RF amoxicillin-pot clavulanate [amoxicillin-pot clavulanate] 875-125 mg tablet 875 mg PO Q12H Qty: 14 0RF Primary Care Provider: Dewayne Quan Referrals: Dewayne Quan MD [Primary Care Provider] - 3-5 Days Disposition Disposition: Home, Self Care
--- OUTSIDE RECORDS SUMMARY | 2023-03-08 22:22 | XMS RPT_ITS | CCD ---
Author Name Unknown Address [address] [place] [address] Organization [facility] Care Team Providers Care Credit Or Loans Officer Name Role Phone Rosnana Klein Unavailable Rosanna Klein Unavailable Dewayne Chung MD Primary Care Provider Dewayne Chung MD Primary Care Provider [phone] Dewayne Chung MD Primary Care Provider DEWAYNE CHUNG Primary Care Unavailable JULIET, DEWAYNE A Referring Unavailable JULIET, DEWAYNE A Primary Care Unavailable YAN RAYA Attending Unavailable JULIET, DEWAYNE A Primary Care Unavailable ALLIE LEMUS Attending Unavailable JULIET, DEWAYNE A Primary Care Unavailable ALLIE LEMUS Attending Unavailable JULIET DEWAYNE A Primary Care Unavailable YAN BELL JR Referring Unavailable YAN BELL JR Attending Unavailable DEWAYNE CHUNG A Attending Unavailable JULIET, DEWAYNE A Primary Care Unavailable JULIET, DEWAYNE A Primary Care Unavailable PADMINI SOLORZANO Attending Unavailable JULIET, DEWAYNE A Primary Care Unavailable JULIET, DEWAYNE A Attending Unavailable JULIET, DEWAYNE A Primary Care Unavailable NEHEMIAH GUZMAN Attending Unavailab le JULIET, DEWAYNE A Primary Care Unavailable ALLIE LEMUS Attending Unavailable JULIET, DEWAYNE A Referring Unavailable JULIET, DEWAYNE A Primary Care Unavailable JULIET, DEWAYNE A Referring Unavailable YAN BELL JR Attending Unavailable JULIET, DEWAYNE A Primary Care Unavailable DORIAN KERN Referring Unavailable JULIET, DEWAYNE A Primary Care Unavailable ALLIE LEMUS Attending Unavailable JULIET, DEWAYNE A Primary Care Unavailable KEKE BAE Referring Unavailable JULIET, DEWAYNE A Primary Care Unavailable JULIET, DEWAYNE A Primary Care Unavailable DEWAYNE CHUNG Primary Care Unavailable DEWAYNE CHUNG Referring Unavailable DEWAYNE CHUNG Primary Care Unavailable DEWAYNE CHUNG Referring Unavailable DEWAYNE CHUNG Primary Care Unavailable DEWAYNE CHUNG Referring Unavailable DORIAN KERN Attending Unavailable DEWAYNE CHUNG Primary Care Unavailable Allergies Allergy Classification Reported Allergen(s) Allergy Type Date of Onset Reaction(s) Facility (3 sources) Ibuprofen; Translations: [IBUPROFEN] Drug Allergy 3 [facility] Work Phone: (20 sources) Ibuprofen Drug Allergy 3 Vomiting [facility] Work Phone: (20 sources) metroNIDAZOLE; Translations: [METRONIDAZOLE HCL] Drug Allergy 9 Itching, Other: See Comments [facility] Work Phone: (20 sources) nickel; Translations: [NICKEL] Drug Allergy 7 Rash [facility] Work Phone: Medications Current Medications Medication Drug Class(es) Dates Sig (Normalized) Sig (Original) cefadroxil 500 mg oral capsule (5 sources) Cephalosporin Antibacterial Start: 12-08-2021 End: 12-18-2021 take 1 capsule by mouth twice daily cefADROxil (DURICEF) 500 mg capsule Take 1 capsule by mouth twice daily for 10 days. 20 capsule 0 12/08/2021 12/18/2021 Active Completed/Discontinued Medications Medication Drug Class(es) Dates Sig (Normalized) Sig (Original) acetaminophen 325 mg / HYDROcodone bitartrate 5 mg oral tablet (16 sources) Opioid Agonist Start: 09-15-2016 NORCO 5-325 MG TABS HYDROCODONE-ACETAMI NOPHEN [id number] [place] Problems Active Problems Problem Classification Problem Date Documented Da te Episodic/Chronic Anxiety disorders (20 sources) Anxiety state; Translations: [Generalized anxiety disorder] Onset: 7 11-23-2017 Chronic Chronic obstructive pulmonary disease and bronchiectasis (20 sources) Pulmonary emphysema; Translations: [Emphysema, unspecified] Onset: 5 Chronic Coronary atherosclerosis and other heart disease (16 sources) Calcification of coronary artery; Translations: [Atherosclerotic heart disease of [place] coronary artery without angina pectoris] Onset: 3 09-08-2022 Chronic Diseases of mouth; excluding dental (1 source) Lesion of lip; Translations: [Diseases of lips] Episodic Disorders of lipid metabolism (20 sources) Mixed hyperlipidemia; Translations: [Mixed hyperlipidemia] Onset: 9 Chronic Diverticulosis and diverticulitis (20 sources) Diverticulitis of large intestine; Translations: [Diverticulitis of large intestine without perforation or abscess without bleeding] Onset: 7 05-23-2018 Chronic Esophageal disorders (20 sources) Gastroesophageal reflux disease without esophagitis; Translations: [Gastro-esophageal reflux disease without esophagitis] Onset: 7 Chronic Essential hypertension (20 sources) Essential hypertension; Translations: [Essential (primary) hypertension] Onset: 7 Chronic Genitourinary symptoms and ill-defined conditions (3 sources) Microscopic hematuria; Translations: [Other microscopic hematuria] Episodic Hemorrhoids (20 sources) Internal hemorrhoids; Translations: [Other hemorrhoids] 05-23-2018 Episodic Malaise and fatigue (1 source) Lack of stamina; Translations: [Other fatigue] 09-08-2022 Episodic Menopausal disorders (20 sources) Primary ovarian failure; Translations: [Other primary ovarian failure] Onset: 8 11-23-2017 Chronic Mood disorders (20 sources) Recurrent major depression in remission; Translations: [Major depressive disorder, recurrent, in remission, unspecified] Onset: 8 Chronic Osteoarthritis (20 sources) Osteoarthritis of hip; Translations: [Osteoarthritis of multiple joints ] Onset: 7 09-15-2016 Chronic Other aftercare (1 source) Removal of sutures done; Translations: [Encounter for removal of sutures] 10-28-2022 Episodic Other and unspecified benign neoplasm (2 sources) History of polyp of colon; Translations: [Personal history of colonic polyps] Episodic Other and unspecified benign neoplasm (1 source) Tubular adenoma ; Translations: [Benign neoplasm, unspecified site] Episodic Other circulatory disease (1 source) Wheeze - rhonchi; Translations: [Other specified symptoms and signs involving the circulatory and respiratory systems] 11-16-2022 Episodic Other diseases of bladder and urethra (20 sources) Overactive bladder; Translations: [Overactive bladder] Onset: 9 Chronic Other diseases of bladder and urethra (1 source) Overactive bladder; Translations: [Overactive bladder] Onset: 1 Chronic Other diseases of kidney and ureters (1 source) Renal impairment; Translations: [Disorder of kidney and ureter, unspecified] Episodic Other gastrointestinal disorders (1 source) History of diverticulitis; Translations: [Personal history of other diseases of the digestive system] Episodic Other lower respiratory disease (1 source) Cough; Translations: [Acute cough] Episodic Other lower respiratory disease (1 source) Snoring; Translations: [Snoring] Episodic Other lower respiratory disease (2 sources) Persistent cough; Translations: [Cough, persistent] Episodic Other lower respiratory disease (1 source) Dyspnea; Translations: [Shortness of breath] 09-08-2022 Episodic Other nervous system disorders (1 source) Sleep-wake schedule disorder, delayed phase type; Translations: [Circadian rhythm sleep disorder, delayed sleep phase type] Chronic Other nutritional; endocrine; and metabolic disorders (20 sources) Severe obesity; Translations: [Morbid (severe) obesity due to excess calories] Onset: 5 Chronic Other nutritional; endocrine; and metabolic disorders (1 source) Body mass index 40+ - severely obese; Translations: [Morbid (severe) obesity due to excess calories] 10-28-2022 Chronic Other nutritional; endocrine; and metabolic disorders (1 source) Morbid (severe) obesity due to excess calories; Translations: [Class 3 severe obesity due to excess calories without serious comorbidity with body mass index (BMI) of 45.0 to 49.9 in adult ([facility])] Onset: 8 Chronic Other nutritional; endocrine; and metabolic disorders (1 source) Body mass index (BMI) 45.0-49.9, adult; Translations: [Class 3 severe obesity due to excess calories without serious comorbidity with body mass index (BMI) of 45.0 to 49.9 in adult ([facility])] Onset: 8 Chronic Other upper respiratory infections (1 source) Acute upper respiratory infection; Translations: [Acute upper respiratory infection, unspecified] 11-16-2022 Episodic Residual codes; unclassified (1 source) Hypersomnia; Translations: [Hypersomnia, unspecified] Chronic Residual codes; unclassified (20 sources) Obstructive sleep apnea syndrome; Translations: [Obstructive sleep apnea (adult) (pediatric)] Onset: 3 Chronic Residual codes; unclassified (2 sources) Hypoxia; Translations: [Idiopathic sleep related nonobstructive alveolar hypoventilation] Chronic Residual codes; unclassified (1 source) Obstructive sleep apnea (adult) (pediatric); Translations: [Moderate obstructive sleep apnea] Onset: 3 Chronic Residual codes; unclassified (1 source) Hypersomnia, unspecified; Translations: [Hypersomnolence] Onset: 3 Chronic Residual codes; unclassified (2 sources) Postmenopausal state; Translations: [Asymptomatic menopausal state] Episodic Residual codes; unclassified (3 sources) Tobacco user; Translations: [Tobacco use] Episodic Spondylosis; intervertebral disc disorders; other back problems (20 sources) Lumbar spondylosis; Translations: [Spondylosis without myelopathy or radiculopathy, lumbar region] Onset: 6 11-23-2017 Chronic Substance-related disorders (20 sources) Smoker; Translations: [Nicotine dependence, unspecified, uncomplicated] Onset: 1 Chronic Unclassified (1 source) Cough, persistent; Translations: [Cough, persistent] Onset: 3 Urinary tract infections (2 sources) Recurrent urinary tract infection; Translations: [Urinary tract infection, site not specified] Episodic Past or Other Problems Problem Classification Problem Date Documented Date Episodic/Chronic Administrative/social admission (20 sources) Advance directive discussed with patient; Translations: [Other specified counseling] Onset: 05-26-2021 Episodic Conditions associated with dizziness or vertigo (20 sources) Benign paroxysmal positional vertigo; Translations: [Benign paroxysmal vertigo, unspecified ear] Onset: 04-03-2015 Episodic E Codes: Natural/environment (4 sources) Dog bite - wound; Translations: [Bitten by dog, subsequent encounter] Onset: 07-04-2022 Episodic Immunizations and screening for infectious disease (2 sources) Suspected disease caused by 2019-nCoV; Translations: [Suspected COVID-19 virus infection] Onset: 11-04-2022 Episodic Nutritional deficiencies (20 sources) Cobalamin deficiency; Translations: [Deficiency of other specified B group vitamins] Onset: 05-26-2021 Episodic Open wounds of extremities (4 sources) Dog bite of wrist; Translations: [Open bite of left wrist, subsequent encounter] Onset: 07-06-2022 Episodic Other aftercare (15 sources) Drug therapy finding; Translations: [Other salvage determiner (current) drug therapy] Onset: 11-23-2017 05-23-2018 Episodic Other aftercare (20 sources) Patient encounter status; Translations: [Other salvage determiner (current) drug therapy] Onset: 11-23-2017 07-18-2019 Episodic Other aftercare (1 source) Other salvage determiner (current) drug therapy; Translations: [Medication management] Onset: 07-18-2019 Episodic Other and unspecified benign neoplasm (20 sources) Benign neoplasm of colon; Translations: [Benign neoplasm of colon, unspecified] Onset: 04-01-2009 11-23-2017 Episodic Other and unspecified benign neoplasm (20 sources) Adenoma of left adrenal gland; Translations: [Benign neoplasm of left adrenal gland] Onset: 12-06-2018 12-06-2018 Episodic Other diseases of veins and lymphatics (20 sources) Peripheral venous insufficiency; Translations: [Venous insufficiency (chronic) (peripheral)] Onset: 10-16-2014 11-23-2017 Episodic Other lower respiratory disease (1 source) Snoring; Translations: [Snores] Onset: 07-22-2022 Episodic Other non-traumatic joint disorders (2 sources) Hip pain; Translations: [Pain in right hip] Onset: 09-15-2016 09-15-2016 Episodic Other non-traumatic joint disorders (20 sources) Chronic pain of left upper limb; Translations: [Pain in left shoulder] Onset: 09-17-2015 11-23-2017 Episodic Other screening for suspected conditions (not mental disorders or infectious disease) (2 sources) Encounter for screening for diabetes mellitus; Translations: [Encounter for screening for malignant neoplasm of respiratory organs] Onset: 08-20-2022 Episodic Residual codes; unclassified (16 sources) FH: premature coronary heart disease; Translations: [Family history of ischemic heart disease and other diseases of the circulatory system] Onset: 09-08-2022 09-08-2022 Episodic Residual codes; unclassified (1 source) Tobacco use; Translations: [Tobacco use current] Onset: 08-20-2022 Episodic Skin and subcutaneous tissue infections (5 sources) Cellulitis of skin; Translations: [Cellulitis, unspecified] Onset: 07-04-2022 Episodic Results Test Name Value Interpretation Reference Range Facil ity Vital Signs Date Time Vital Sign Value Performing Clinician Facility 02-05-2023 13:43-0500 Body temperature 98.8 [degF] Rosanna Worley TRANSIT MANAGER.SHEET HEATER Work Phone: [facility] 02-05-2023 13:43-0500 Body weight 122.02 kg Rosanna Worley TRANSIT MANAGER.SHEET HEATER Work Phone: [facility] 02-05-2023 13:43-0500 Diastolic blood pressure 78 mm[Hg] Rosanna Worley TRANSIT MANAGER.SHEET HEATER Work Phone: [facility] 02-05-2023 13:43-0500 Heart rate 107 /min Rosanna Worley TRANSIT MANAGER.SHEET HEATER Work Phone: [facility] 02-05-2023 13:43-0500 Respiratory rate 18 /min Rosanna Worley TRANSIT MANAGER.SHEET HEATER Work Phone: [facility] 02-05-2023 13:43-0500 SaO2% (BldA) [Mass fraction] 95 % Rosanna Worley TRANSIT MANAGER.SHEET HEATER Work Phone: [facility] 02-05-2023 13:43-0500 Systolic blood pressure 122 mm[Hg] Rosanna Worley TRANSIT MANAGER.SHEET HEATER Work Phone: [facility] 11-27-2022 11:33-0400 Body weight 121.93 kg Yan Bell Jr., MD Work Phone: [facility] 11-27-2022 11:33-0400 Diastolic blood pressure 71 mm[Hg] Yan Bell Jr., MD Work Phone: [facility] 11-27-2022 11:33-0400 Heart rate 71 /min Yan Bell Jr., MD Work Phone: [facility] 11-27-2022 11:33-0400 Respiratory rate 18 /min Yan Bell Jr., MD Work Phone: [facility] 11-27-2022 11:33-0400 SaO2% (BldA) [Mass fraction] 97 % Yan Bell Jr., MD Work Phone: [facility] 11-27-2022 11:33-0400 Systolic blood pressure 108 mm[Hg] Yan Bell Jr., MD Work Phone: [facility] 11-16-2022 13:05-0400 Body temperature 99.3 [degF] Keke Catalino TRANSIT MANAGER.SHEET HEATER Work Phone: [facility] 11-16-2022 13:05-0400 Body weight 119.3 kg Keke Catalino TRANSIT MANAGER.SHEET HEATER Work Phone: [facility] 11-16-2022 13:05-0400 Diastolic blood pressure 70 mm[Hg] Keke Catalino TRANSIT MANAGER.SHEET HEATER Work Phone: [facility] 11-16-2022 13:05-0400 Heart rate 96 /min Keke Catalino TRANSIT MANAGER.SHEET HEATER Work Phone: [facility] 11-16-2022 13:05-0400 Respiratory rate 18 /min Keke Catalino TRANSIT MANAGER.SHEET HEATER Work Phone: [facility] 11-16-2022 13:05-0400 SaO2% (BldA) [Mass fraction] 95 % Keek Catalino TRANSIT MANAGER.SHEET HEATER Work Phone: [facility] 11-16-2022 13:05-0400 Systolic blood pressure 128 mm[Hg] Keke Catalino TRANSIT MANAGER.SHEET HEATER Work Phone: [facility] 10-28-2022 12:38-0400 Body temperature 97 [degF] Padmini Solorzano PA-C Work Phone: [facility] 10-28-2022 12:38-0400 Body weight 118.84 kg Padmini Solorzano PA-C Work Phone: [facility] 10-28-2022 12:38-0400 Diastolic blood pressure 78 mm[Hg] Padmini Solorzano PA-C Work Phone: [facility] 10-28-2022 12:38-0400 Heart rate 72 /min Padmini Solorzano PA-C Work Phone: [facility] 10-28-2022 12:38-0400 Respiratory rate 18 /min Padmini Solorzano PA-C Work Phone: [facility] 10-28-2022 12:38-0400 Systolic blood pressure 124 mm[Hg] Padmini Solorzano PA-C Work Phone: [facility] 09-08-2022 10:53-0400 Body weight 119.75 kg Dewayne Chung MD Work Phone: [facility] 09-08-2022 10:53-0400 Diastolic blood pressure 86 mm[Hg] Dewayne Chung MD Work Phone: [facility] 09-08-2022 10:53-0400 Heart rate 76 /min Dewayne Chung MD Work Phone: [facility] 09-08-2022 10:53-0400 Respiratory rate 18 /min Dewayne Chung MD Work Phone: [facility] 09-08-2022 10:53-0400 Systolic blood pressure 128 mm[Hg] Dewayne Chung MD Work Phone: [facility] 08-07-2022 14:04-0400 Body temperature 98.4 [degF] Yan Bell Jr., MD Work Phone: [facility] 08-07-2022 14:04-0400 Body weight 119.39 kg Yan Bell Jr., MD Work Phone: [facility] 08-07-2022 14:04-0400 Diastolic blood pressure 83 mm[Hg] Yan Bell Jr., MD Work Phone: [facility] 08-07-2022 14:04-0400 Heart rate 75 /min Yan Bell Jr., MD Work Phone: [facility] 08-07-2022 14:04-0400 Respiratory rate 18 /min Yan Bell Jr., MD Work Phone: [facility] 08-07-2022 14:04-0400 SaO2% (BldA) [Mass fraction] 94 % Yan Bell Jr., MD Work Phone: [facility] 08-07-2022 14:04-0400 Systolic blood pressure 133 mm[Hg] Yan Bell Jr., MD Work Phone: [facility] 07-13-2022 11:10-0400 Body weight 121.56 kg Allie Lemus TRANSIT MANAGER.SHEET HEATER Work Phone: [facility] 07-13-2022 11:10-0400 Diastolic blood pressure 80 mm[Hg] Allie Lemus TRANSIT MANAGER.SHEET HEATER Work Phone: [facility] 07-13-2022 11:10-0400 Heart rate 84 /min Allie Lemus TRANSIT MANAGER.SHEET HEATER Work Phone: [facility] 07-13-2022 11:10-0400 Respiratory rate 16 /min Allie Lemus TRANSIT MANAGER.SHEET HEATER Work Phone: [facility] 07-13-2022 11:10-0400 Systolic blood pressure 130 mm[Hg] Allie Lemus TRANSIT MANAGER.SHEET HEATER Work Phone: [facility] 07-09-2022 10:05-0400 Body weight 121.56 kg Allie Lemus TRANSIT MANAGER.SHEET HEATER Work Phone: [facility] 07-09-2022 10:05-0400 Diastolic blood pressure 76 mm[Hg] Allie Lemus TRANSIT MANAGER.SHEET HEATER Work Phone: [facility] 07-09-2022 10:05-0400 Heart rate 78 /min Allie Lemus TRANSIT MANAGER.SHEET HEATER Work Phone: [facility] 07-09-2022 10:05-0400 Respiratory rate 16 /min Allie Bria TRANSIT MANAGER.SHEET HEATER Work Phone: [facility] 07-09-2022 10:05-0400 Systolic blood pressure 128 mm[Hg] Allie Lemus TRANSIT MANAGER.SHEET HEATER Work Phone: [facility] 07-06-2022 16:42-0400 Body temperature 99.39 [degF] Nehemiah Guzman MD Work Phone: [facility] 07-06-2022 16:42-0400 Body weight 123.38 kg Nehemiha Guzman MD Work Phone: [facility] 07-06-2022 16:42-0400 Diastolic blood pressure 86 mm[Hg] Nehemiah Guzman MD Work Phone: [facility] 07-06-2022 16:42-0400 Heart rate 76 /min Nehemiah Guzman MD Work Phone: [facility] 07-06-2022 16:42-0400 Respiratory rate 18 /min Nehemiah Guzman MD Work Phone: [facility] 07-06-2022 16:42-0400 SaO2% (BldA) [Mass fraction] 96 % Nehemiah Guzman MD Work Phone: [facility] 07-06-2022 16:42-0400 Systolic blood pressure 132 mm[Hg] Nehemiah Guzman MD Work Phone: [facility] 07-04-2022 08:09-0400 Body temperature 99.9 [degF] Yan Raya MD Work Phone: [facility] 07-04-2022 08:09-0400 Body weight 121.56 kg Yan Raya MD Work Phone: [facility] 07-04-2022 08:09-0400 Diastolic blood pressure 68 mm[Hg] Yan Raya MD Work Phone: [facility] 07-04-2022 08:09-0400 Heart rate 74 /min Yan Raya MD Work Phone: [facility] 07-04-2022 08:09-0400 Respiratory rate 16 /min Yan Raya MD Work Phone: [facility] 07-04-2022 08:09-0400 SaO2% (BldA) [Mass fraction] 94 % Yan Raya MD Work Phone: [facility] 07-04-2022 08:09-0400 Systolic blood pressure 120 mm[Hg] Yan Raya MD Work Phone: [facility] 06-26-2022 13:26-0400 Body height 158.7 cm Pulm Wstr Work Phone: [facility] 06-26-2022 13:26-0400 Body weight 119.75 kg Pulm Wstr Work Phone: [facility] 06-26-2022 13:26-0400 Heart rate 77 /min Pulm Wstr Work Phone: [facility] 06-26-2022 13:26-0400 Respiratory rate 14 /min Pulm Wstr Work Phone: [facility] 06-26-2022 13:26-0400 SaO2% (BldA) [Mass fraction] 93 % Pulm Wstr Work Phone: [facility] 06-24-2022 10:52-0400 Body weight 120.2 kg Dorian Lincoln TRANSIT MANAGER.SHEET HEATER Work Phone: [facility] 06-24-2022 10:52-0400 Diastolic blood pressure 78 mm[Hg] Dorian Lincoln TRANSIT MANAGER.SHEET HEATER Work Phone: [facility] 06-24-2022 10:52-0400 Heart rate 87 /min Dorian Lincoln TRANSIT MANAGER.SHEET HEATER Work Phone: [facility] 06-24-2022 10:52-0400 Respiratory rate 18 /min Dorian Lincoln TRANSIT MANAGER.SHEET HEATER Work Phone: [facility] 06-24-2022 10:52-0400 SaO2% (BldA) [Mass fraction] 93 % Dorian Lincoln TRANSIT MANAGER.SHEET HEATER Work Phone: [facility] 06-24-2022 10:52-0400 Systolic blood pressure 122 mm[Hg] Dorian Lincoln TRANSIT MANAGER.SHEET HEATER Work Phone: [facility] 06-15-2022 15:01-0400 Body height 158.8 cm Dewayne Chung MD Work Phone: [facility] 06-15-2022 15:01-0400 Body weight 120.2 kg Dewayne Chung MD Work Phone: [facility] 06-15-2022 15:01-0400 Diastolic blood pressure 82 mm[Hg] Dewayne Chung MD Work Phone: [facility] 06-15-2022 15:01-0400 Heart rate 76 /min Dewayne Chung MD Work Phone: [facility] 06-15-2022 15:01-0400 Systolic blood pressure 138 mm[Hg] Dewayne Chung MD Work Phone: [facility] 01-06-2022 19:48-0500 Body temperature 97.7 [degF] Dewayne Tomas TRANSIT MANAGER.SHEET HEATER Work Phone: [facility] 01-06-2022 19:48-0500 Body weight 118.84 kg Dewayne Tomas TRANSIT MANAGER.SHEET HEATER Work Phone: [facility] 01-06-2022 19:48-0500 Diastolic blood pressure 82 mm[Hg] Dewayne Tomas TRANSIT MANAGER.SHEET HEATER Work Phone: [facility] 01-06-2022 19:48-0500 Heart rate 84 /min Dewayne Tomas TRANSIT MANAGER.SHEET HEATER Work Phone: [facility] 01-06-2022 19:48-0500 Respiratory rate 18 /min Dewayne Tomas TRANSIT MANAGER.SHEET HEATER Work Phone: [facility] 01-06-2022 19:48-0500 SaO2% (BldA) [Mass fraction] 95 % Dewayne Tomas TRANSIT MANAGER.SHEET HEATER Work Phone: [facility] 01-06-2022 19:48-0500 Systolic blood pressure 128 mm[Hg] Dewayne Tomas TRANSIT MANAGER.SHEET HEATER Work Phone: [facility] 12-08-2021 12:31-0400 Body temperature 98.71 [degF] Padmini Solorzano PA-C Work Phone: [facility] 12-08-2021 12:31-0400 Body weight 116.57 kg Padmini Solorzano PA-C Work Phone: [facility] 12-08-2021 12:31-0400 Diastolic blood pressure 82 mm[Hg] Padmini Solorzano PA-C Work Phone: [facility] 12-08-2021 12:31-0400 Heart rate 68 /min Padmini Solorzano PA-C Work Phone: [facility] 12-08-2021 12:31-0400 Respiratory rate 18 /min Padmini Solorzano PA-C Work Phone: [facility] 12-08-2021 12:31-0400 Systolic blood pressure 144 mm[Hg] Padmini Solorzano PA-C Work Phone: [facility] 09-16-2021 14:10-0400 Body temperature 97.59 [degF] Nettie Sumrall PA-C Work Phone: [facility] 09-16-2021 14:10-0400 Body weight 118.48 kg Nettie Laura PA-C Work Phone: [facility] 09-16-2021 14:10-0400 Diastolic blood pressure 81 mm[Hg] Nettie Sumrall PA-C Work Phone: [facility] 09-16-2021 14:10-0400 Heart rate 87 /min Nettie Sumrall PA-C Work Phone: [facility] 09-16-2021 14:10-0400 SaO2% (BldA) [Mass fraction] 97 % Nettie Laura PA-C Work Phone: [facility] 09-16-2021 14:10-0400 Systolic blood pressure 126 mm[Hg] Nettie Laura PA-C Work Phone: [facility] 07-24-2021 10:18-0400 Diastolic blood pressure 59 mm[Hg] Douglas Corral MD Work Phone: [facility] 07-24-2021 10:18-0400 Heart rate 72 /min Douglas Corral MD Work Phone: [facility] 07-24-2021 10:18-0400 Respiratory rate 16 /min Douglas Corral MD Work Phone: [facility] 07-24-2021 10:18-0400 SaO2% (BldA) [Mass fraction] 94 % Douglas Corral MD Work Phone: [facility] 07-24-2021 10:18-0400 Systolic blood pressure 117 mm[Hg] Douglas Corral MD Work Phone: [facility] 07-24-2021 08:52-0400 Body temperature 98.01 [degF] Douglas Corral MD Work Phone: [facility] 05-26-2021 11:57-0400 Body height 159.5 cm Padmini Solorzano PA-C Work Phone: [facility] 05-26-2021 11:57-0400 Body temperature 97.2 [degF] Padmini Solorzano PA-C Work Phone: [facility] 05-26-2021 11:57-0400 Body weight 120.66 kg Padmini Solorzano PA-C Work Phone: [facility] 05-26-2021 11:57-0400 Diastolic blood pressure 86 mm[Hg] Padmini Solorzano PA-C Work Phone: [facility] 05-26-2021 11:57-0400 Heart rate 76 /min Padmini Solorzano PA-C Work Phone: [facility] 05-26-2021 11:57-0400 Respiratory rate 18 /min Padmini Solorzano PA-C Work Phone: [facility] 05-26-2021 11:57-0400 Systolic blood pressure 126 mm[Hg] Padmini Solorzano PA-C Work Phone: [facility] 09-15-2016 15:04-0400 BMI (Body Mass Index) 46.94 kg/m2 [facility] Work Phone: 09-15-2016 [id number] Height 160.02 cm [facility] Work Phone: 09-15-2016 [id number] Weight 120.2 kg [facility] Work Phone: Encounters Encounter Date Encounter Type Care Provider Facility Start: 02-10-2023 Refill Dewayne theodore MD Work Phone: [facility] Procedures Date Procedure Procedure Detail Performing Clinician Start: 02-05-2023 Urnls dip stick/tabl et rgnt auto w/o microscopy Rosanna Worley TRANSIT MANAGER.SHEET HEATER Work Phone: Start: 11-16-2022 Radex ribs unilatera l 2 views Keke Bae TRANSIT MANAGER.SHEET HEATER Work Phone: Start: 11-16-2022 Radiologic exam ches t 2 views Keke Bae TRANSIT MANAGER.SHEET HEATER Work Phone: Start: 08-20-2022 CT LUNG SCREEN WO IVCON Dorian Kern TRANSIT MANAGER.SHEET HEATER Work Phone: Start: 06-26-2022 Brncdilat rspse spmt ry pre&post-brncdilat admn Dewayne Chung MD Work Phone: Start: 06-16-2022 Lipid 1996 panel - S betsey or Plasma Keke Bae TRANSIT MANAGER.SHEET HEATER Work Phone: Start: 01-06-2022 COVID WITH FLUA+B, ROUTINE Dewayne Tomas TRANSIT MANAGER.SHEET HEATER Work Phone: Start: 07-24-2021 Colonoscopy flx dx w /collj spec when pfrmd Douglas Corral MD Work Phone: Start: 07-24-2021 Colonoscopy Douglas oneill MD Work Phone: Start: 06-23-2021 Dxa bone density deann dy 1/> sites axial skel Padmini Solorzano PA-C Work Phone: Start: 02-11-2021 Mammography Padmini Tatyana tristan PA-C Work Phone: Start: 06-16-2016 Colonoscopy Padmini Tatyana tristan PA-C Work Phone: Plan of Treatment Date Care Activity Detail Author Start: 07-04-2032 Urine microalbumin profile [facility] Start: 06-17-2027 Lipid 1996 panel - S betsey or Plasma Lipid Screening [facility] Start: 06-17-2027 Lipid panel Lipid Screening [facility] Start: 06-17-2027 LIPID SCREEN LIPID SCREEN [facility] Start: 12-08-2026 LIPID SCREEN LIPID SCREEN [facility] Start: 07-24-2026 Colonoscopy COLONOSCOPY [facility] Start: 07-24-2026 COLORECTAL CANCER SCREENING COLORECTAL CANCER SCREENING [facility] Start: 04-22-2026 LIPID SCREEN LIPID SCREEN [facility] Start: 06-16-2025 DIABETES SCREEN DIABETES SCREEN [facility] Start: 06-16-2025 Diabetes Screening Diabetes Screenin g [facility] Start: 12-08-2024 DIABETES SCREEN DIABETES SCREEN [facility] Start: 07-24-2024 Colonoscopy COLONOSCOPY [facility] Start: 07-24-2024 COLORECTAL CANCER SCREENING COLORECTAL CANCER SCREENING [facility] Start: 07-24-2024 Screening for malign ant neoplasm of colon [facility] Start: 04-22-2024 DIABETES SCREEN DIABETES SCREEN [facility] Start: 02-06-2024 BP Controlled (<130/80) BP Controlle d (<130/80) [facility] Start: 11-28-2023 BP Controlled (<130/80) BP Controlle d (<130/80) [facility] Start: 11-17-2023 BP Controlled (<130/80) BP Controlle d (<130/80) [facility] Start: 11-05-2023 Annual 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 Operator yash Disease Visit Annual PCP Team Chronic Disease Visit [facility] Start: 11-05-2023 Shingrix Vaccine (1 of 2) Marin grix Vaccine (1 of 2) [facility] Immunizations Immunization Date Immunization Notes Care Provider Jamaica barahona 11-04-2022 influenza (HD-IIV4) vaccine, age 65+ yr, high dose, quadrivalent, PF (FLUZONE HIGH-DOSE) Keke Bae APRN.CNP Work Phone: [facility] 07-04-2022 tetanus toxoid, redu carley diphtheria toxoid, and acellular pertussis vaccine, adsorbed Padmini DUFFY-C Work Phone: [facility] 10-09-2020 COVID-19 original vaccine, age 12+ yr, monovalent (PFIZER-BIONTECH - PURPLE TOP) Yan Raya MD Work Phone: [facility] 09-18-2020 COVID-19 original vaccine, age 12+ yr, monovalent (PFIZER-BIONTECH - PURPLE TOP) Yan Raya MD Work Phone: [facility] 12-22-2019 influenza, high-dose , quadrivalent vaccine (FLUZONE HIGH DOSE QUADRIVALENT) Padmini DUFFY-C Work Phone: [facility] Work Phone: 01-16-2019 pneumococcal conjuga te vaccine, 13 valent Padmini Solorzano PA-C Work Phone: [facility] 11-23-2018 influenza, high dose seasonal, preservative-free Padmini Solorzano PA-C Work Phone: [facility] Work Phone: 06-29-2017 pneumococcal polysaccharide vaccine, 23 valent Padmini Solorzano PA-C Work Phone: [facility] Work Phone: 06-29-2017 pneumococcal vaccine , unspecified formulation Padmini Solorzano PA-C Work Phone: [facility] 02-23-2017 influenza, high dose seasonal, preservative-free Padmini Solorzano PA-C Work Phone: [facility] 01-20-2016 influenza, injectabl e, quadrivalent, contains preservative Padmini Solorzano PA-C Work Phone: [facility] 03-15-2015 influenza, injectabl e, quadrivalent, contains preservative Padmini Solorzano PA-C Work Phone: [facility] 12-05-2013 influenza, high dose seasonal, preservative-free Padmini Solorzano PA-C Work Phone: [facility] 12-05-2013 pneumococcal polysaccharide vaccine, 23 valent Padmini Solorzano PA-C Work Phone: [facility] 05-14-2010 tetanus toxoid, redu carley diphtheria toxoid, and acellular pertussis vaccine, adsorbed Padmini Solorzano PA-C Work Phone: [facility] 12-31-2008 influenza virus vacc ine, unspecified formulation Padmini Solorzano PA-C Work Phone: [facility] Payers Date Payer Category Payer Unknown [id number] 2017 Medicare [facility] MEDICARE [facility] DUAL COMPLETE HMO SNP [id number] 2017-Present [phone] [address] [place] [address] Medicare [id number] 2017 Medicare [id number] 2017 [place] [id number] 2017-Present [phone] [address] [place] [address] Medicaid [id number] Social History Date Type Detail Facility Start: [birth year]01-1966 End: 06-24-2022 Tobacco smoking status NHIS Smokes tobacco daily [facility] Work Phone: Start: [birth year]01-1966 History of tobacco use Cigarette Smo ker [facility] Work Phone: Start: 05-26-2021 End: 02-05-2023 Alcohol intake Current drinker of alcohol (finding) [facility] Start: 06-11-2017 History SDOH Alcohol Comment rare [facility] Start: 04-28-2010 End: 12-08-2021 Tobacco Comment recently cut back to /2 ppd [facility] Start: 1950 Sex Assigned At Not on file [facility] Start: 05-16-2021 End: 01-06-2022 Exposure to SARS-CoV-2 (event) Not sure [facility] Start: 12-08-2021 End: 07-09-2022 Cigarettes smoked current (pack per day) - Reported 0.4 [facility] Work Phone: Start: 12-08-2021 End: 06-24-2022 Tobacco use and exposure Smokeless tobacco non-user [facility] Start: 07-09-2022 End: 09-08-2022 Tobacco use panel [facility] Work Phone: Adult Depression Screening Assessment 4 [facility] Work Phone: Medical Equipment Procedure Code Equipment Code Equipment Origin al Text Equipment Identifier Dates Gcz-Hn-G-Kind Implant - [id number] Start: 06-23-2017 Liner 36mm 0d F X3 7.9mm Acetabular Hip - [id number] Start: 06-23-2017 Head V40 36mm +2 .5mm Offset Taper Biolox Delta Femoral Hip - [id number] Start: 06-23-2017 Stem Accolade Ii 4 127d Femoral - [id number] Start: 06-23-2017 Clinical Notes 06-23-2017 to 02-10-2023 Telephone Encounter - Delilah Santoro - 02/10/2023 10:31 AM ESTTelephone Encounter - Rachael Bee - 02/10/2023 10:24 AM ESTTelephone Encounter - Sayra Valencia LPN - 02/08/2023 12:23 PM EST Note Date & Type Note Facility 02-10-2023 Miscellaneous Notes [facility]:11/04/22 No know appt made. Patient has been identified by name and date of : Yes Requested Prescriptions Pending Prescriptions Disp Refills solifenacin (VESICARE) 5 mg tablet 30 tablet 5 Sig: Take 1 tablet by mouth once daily. RX INSTRUCTIONS: Patient aware RX will be sent to pharmacy. Please call patient when this has been sent at [phone]. Rachael Valencia Pss documented in this encounter [facility] 02-08-2023 Miscellaneous Notes Spoke with pt and information listed below given. Pt verbalizes understanding. Sayra Valencia LPN ----- Message from Jenny Price APRN.SHEET HEATER sent at 02/07/2023 8:05 AM EST ----- Urine culture did not show clear evidence of infection, however it appears sample may have been contaminated with skin bacteria during collection. She may continue to take antibiotic if it has been helpful. Recommend follow up with PCP to ensure hematuria has resolved. Jenny Price CNP documented in this encounter [facility] 02-05-2023 Note HNO ID: [id number] Author: Rosanna Worley APRN.STEPHANI Service: ? Author Type: Nurse Practitioner Type: Progress Notes Filed: 02/05/2023 2:26 PM Note Text: This note was created using Nugg-itriter. Subjective Dianne Holly is a 72 year old female. 72 year old female with PMH HTN, hyperlipidemia, CAD, GERD, and obesity presents for complaints of possible UTI. Acute onset one week ago. +frequency +urgency +suprapubic pressure Denies flank pain Denies abdominal pain. Denies vaginal bleeding. Denies vaginal discharge This is how my UTI's normally are The history is provided by the patient. No humanities and languages professor was used. UTI This is a new problem. The current episode started more than 1 week ago. The problem occurs every urination. The problem has not changed since onset.The pain is at a severity of 2/10. The pain is mild. There has been no fever. Associated symptoms include frequency and urgency. Pertinent negatives include no chills, no sweats, no nausea, no vomiting, no discharge, no hematuria, no hesitancy, no possible and no flank pain. She has tried nothing for the symptoms. Her past medical history does not include kidney stones, single kidney, urological procedure, recurrent UTIs, urinary stasis or catheterization. PAST MEDICAL HISTORY Diagnosis Date Adenoma of left adrenal gland 12/06/2018 Seen [facility] ER CT 11/28/2018 was stable in size since CT done 11/2015: benign. ADRENAL NODULE 11/17/2007 Anxiety state 11/19/2006 Arthritis Benign neoplasm of colon BPPV (benign paroxysmal positional vertigo) 04/03/2015 Chronic left shoulder pain 09/17/2015 Class 3 severe obesity due to excess calories without serious comorbidity with body mass index (BMI) of 45.0 to 49.9 in adult ([facility]) 06/18/2014 Coronary artery calcification 09/08/[address] 08/2022 DDD (degenerative disc disease), lumbar 01/15/2016 Delayed emergence from general anesthesia Diverticulitis of large intestine without perforation or abscess without bleeding 06/03/2016 Emphysema of lung ([facility]) 06/18/2014 Essential hypertension 11/19/2006 Family history of early CAD 09/08/2022 Brother at age 47 Gastroesophageal reflux disease without esophagitis 11/19/2006 Generalized osteoarthrosis, unspecified site 11/19/2006 Internal hemorrhoids Medicare annual wellness visit, initial 11/23/2017 Medicare Part B: 11/29/2016 last done: 11/16/2018 Mixed hyperlipidemia 03/19/2008 Moderate obstructive sleep apnea 08/03/2022 Consult sleep med 07/2022 Osteoarthritis of lumbar spine 01/15/2016 Osteoarthritis of multiple joints 11/19/2006 Overactive bladder 01/16/2019 Primary osteoarthritis of right hip 09/21/2016 Primary ovarian failure 11/23/2017 Recurrent major depressive disorder, in remission ([facility]) 11/23/2017 Smoker 05/27/2010 Status post right hip replacement 10/01/2017 Venous insufficiency (chronic) (peripheral) 10/16/2014 Vertigo 06/14/2017 Vitamin B12 deficiency 05/26/2021 PAST SURGICAL HISTORY Procedure Laterality Date ARTHROSCOPY KNEE DIAGNOSTIC W/WO SYNOVIAL BX SPX 2001 Arthroscopy, knee right ARTHRP ACETBLR/PROX FEM PROSTC AGRFT/ALGRFT Right 06/23/2017 Hip replacement, total BREAST SURGERY HX COLONOSCOPY 07/24/2021 COLONOSCOPY AND POLYPECTOMY 06/16/2016 repeat 5 years COLONOSCOPY W/BIOPSY SINGLE/MULTIPLE 04/01/2009 EGD TRANSORAL BIOPSY SINGLE/MULTIPLE 06/22/2012 [facility] Dr Marroquin FRACTURE SURGERY JOINT REPLACEMENT HX LIG/TRNSXJ FLP TUBE ABDL/VAG APPR UNI/BI 1973 Tubal ligation PAST SURGICAL HISTORY OF 1984 ovarian cyst PAST SURGICAL HISTORY OF 2006 right breast removed bonnie. tumor PAST SURGICAL HISTORY OF 05/2008 bilateral eye lid surgery REM LESIO TRUNK,ARM,LEG 1.1 -2.0CM 12/22/2006 Exc. right lower back skin lesion SKIN BIOPSY HX TOTAL ABDOMINAL HYSTERECT W/WO RMVL TUBE OVARY 1987 Hysterectomy, EDWINA - ovaries remain VAGINAL HYSTERECTOMY ALLERGIES Flagyl [Metronidazole Hcl], Ibuprofen, and Nickel MEDICATIONS lisinopril-hydroCHLOROthiazide (ZESTORETIC) 20-12.5 mg per tablet Take 2 tablets by mouth once daily. sertraline (ZOLOFT) 100 mg tablet Take 1.5 tablets by mouth every evening. buPROPion SR (WELLBUTRIN SR) 150 mg 12 hr tablet Take 1 tablet by mouth once daily. verapamil SR (CALAN SR) 180 mg CR tablet Take 1.5 tablets by mouth once daily. omeprazole (PRILOSEC) 20 mg capsule Take 1 capsule by mouth once daily. pravastatin (PRAVACHOL) 40 mg tablet Take 1 tablet by mouth daily at bedtime. albuterol HFA (PROVENTIL HFA, VENTOLIN HFA) 90 mcg/actuation inhaler Inhale 2 Puffs as instructed every 6 hours as needed. ondansetron orally disintegrating (ZOFRAN ODT) 4 mg disintegrating tablet Take 1 tablet by mouth every 8 hours as needed. triamcinolone acetonide (KENALOG) 0.1 % cream Apply 1 application to affected area three times daily. Apply sparingly to area for rash/itching. fluticasone furoate (ARNUITY ELLIPTA) 100 mcg/a (more content not included)... [facility] 02-05-2023 History of Presen t illness Narrative This note was created using Nugg-itriter. Subjective Dianne Holly is a 72 year old female. 72 year old female with PMH HTN, hyperlipidemia, CAD, GERD, and obesity presents for complaints of possible UTI. Acute onset one week ago. +frequency +urgency +suprapubic pressure Denies flank pain Denies abdominal pain. Denies vaginal bleeding. Denies vaginal discharge This is how my UTI's normally are The history is provided by the patient. No humanities and languages professor was used. UTI This is a new problem. The current episode started more than 1 week ago. The problem occurs every urination. The problem has not changed since onset.The pain is at a severity of 2/10. The pain is mild. There has been no fever. Associated symptoms include frequency and urgency. Pertinent negatives include no chills, no sweats, no nausea, no vomiting, no discharge, no hematuria, no hesitancy, no possible and no flank pain. She has tried nothing for the symptoms. Her past medical history does not include kidney stones, single kidney, urological procedure, recurrent UTIs, urinary stasis or catheterization. PAST MEDICAL HISTORY Diagnosis Date Adenoma of left adrenal gland 12/06/2018 Seen [facility] ER CT 11/28/2018 was stable in size since CT done 11/2015: benign. ADRENAL NODULE 11/17/2007 Anxiety state 11/19/2006 Arthritis Benign neoplasm of colon BPPV (benign paroxysmal positional vertigo) 04/03/2015 Chronic left shoulder pain 09/17/2015 Class 3 severe obesity due to excess calories without serious comorbidity with body mass index (BMI) of 45.0 to 49.9 in adult ([facility]) 06/18/2014 Coronary artery calcification 09/08/[address] 08/2022 DDD (degenerative disc disease), lumbar 01/15/2016 Delayed emergence from general anesthesia Diverticulitis of large intestine without perforation or abscess without bleeding 06/03/2016 Emphysema of lung ([facility]) 06/18/2014 Essential hypertension 11/19/2006 Family history of early CAD 09/08/2022 Brother at age 47 Gastroesophageal reflux disease without esophagitis 11/19/2006 Generalized osteoarthrosis, unspecified site 11/19/2006 Internal hemorrhoids Medicare annual wellness visit, initial 11/23/2017 Medicare Part B: 11/29/2016 last done: 11/16/2018 Mixed hyperlipidemia 03/19/2008 Moderate obstructive sleep apnea 08/03/2022 Consult sleep med 07/2022 Osteoarthritis of lumbar spine 01/15/2016 Osteoarthritis of multiple joints 11/19/2006 Overactive bladder 01/16/2019 Primary osteoarthritis of right hip 09/21/2016 Primary ovarian failure 11/23/2017 Recurrent major depressive disorder, in remission ([facility]) 11/23/2017 Smoker 05/27/2010 Status post right hip replacement 10/01/2017 Venous insufficiency (chronic) (peripheral) 10/16/2014 Vertigo 06/14/2017 Vitamin B12 deficiency 05/26/2021 PAST SURGICAL HISTORY Procedure Laterality Date ARTHROSCOPY KNEE DIAGNOSTIC W/WO SYNOVIAL BX SPX 2001 Arthroscopy, knee right ARTHRP ACETBLR/PROX FEM PROSTC AGRFT/ALGRFT Right 06/23/2017 Hip replacement, total BREAST SURGERY HX COLONOSCOPY 07/24/2021 COLONOSCOPY & POLYPECTOMY 06/16/2016 repeat 5 years COLONOSCOPY W/BIOPSY SINGLE/MULTIPLE 04/01/2009 EGD TRANSORAL BIOPSY SINGLE/MULTIPLE 06/22/2012 [facility] Dr Marroquin FRACTURE SURGERY JOINT REPLACEMENT HX LIG/TRNSXJ FLP TUBE ABDL/VAG APPR UNI/BI 1974 Tubal ligation PAST SURGICAL HISTORY OF 1984 ovarian cyst PAST SURGICAL HISTORY OF 2006 right breast removed bonnie. tumor PAST SURGICAL HISTORY OF 05/2008 bilateral eye lid surgery REM LESIO TRUNK,ARM,LEG 1.1 -2.0CM 12/22/2006 Exc. right lower back skin lesion SKIN BIOPSY HX TOTAL ABDOMINAL HYSTERECT W/WO RMVL TUBE OVARY 1987 Hysterectomy, EDWINA - ovaries remain VAGINAL HYSTERECTOMY ALLERGIES Flagyl [Metronidazole Hcl], Ibuprofen, and Nickel MEDICATIONS lisinopril-hydroCHLOROthiazide (ZESTORETIC) 20-12.5 mg per tablet Take 2 tablets by mouth once daily. sertraline (ZOLOFT) 100 mg tablet Take 1.5 tablets by mouth every evening. buPROPion SR (WELLBUTRIN SR) 150 mg 12 hr tablet Take 1 tablet by mouth once daily. verapamil SR (CALAN SR) 180 mg CR tablet Take 1.5 tablets by mouth once daily. omeprazole (PRILOSEC) 20 mg capsule Take 1 capsule by mouth once daily. pravastatin (PRAVACHOL) 40 mg tablet Take 1 tablet by mouth daily at bedtime. albuterol HFA (PROVENTIL HFA, VENTOLIN HFA) 90 mcg/actuation inhaler Inhale 2 Puffs as instructed every 6 hours as needed. ondansetron orally disintegrating (ZOFRAN ODT) 4 mg disintegrating tablet Take 1 tablet by mouth every 8 hours as needed. triamcinolone acetonide (KENALOG) 0.1 % cream Apply 1 application to affected area three times daily. Apply sparingly to area for rash/itching. fluticasone furoate (ARNUITY ELLIPTA) 100 mcg/actuation inhaler Inhale 1 Puff as instructed once daily. Do a quick inhalation prior to brushing teeth. Then brush teeth, rinse, gargle and spit. cyanocobalamin (VITAMIN B-12) 1,000 mcg tab Take 1 tablet by mouth once daily. solifenacin (VESICARE) 5 mg tablet Take 1 tablet by mouth once daily. MEDICAL SUPPLY BEDSIDE COMMODE. dx: right total hip replacement. z96.641 COMPOUNDED PRESCRIPTION Bedside Commode Dx: right total hip replacement Z96.641 cephALEXin (KEFLEX) 500 mg capsule Take 1 capsule by mouth two times a day for 7 days. FAMILY HISTORY Problem Relation Age of Onset Colon Cancer Mother Diabetes Mother rectal cancer/kidney failure Melanoma Father other (obese) Sister hypertension Colon Cancer Sister Breast Cancer Sister 55 triple negative Blood Disease Sister amyloidosis other (obese) Brother Coronary Artery Disease Brother 47 1st AMI Heart Attack Brother other (Liver Issues) Daughter Alcohol/Drug Daughter Social History Tobacco Use Smoking status: Every Day Packs/day: 0.80 Years: 50.00 Additional pack years: 0.00 Total pack years: 40.00 Types: Cigarettes Start date: [birth year]/01/1966 Smokeless tobacco: Never Tobacco comments: recently cut back to 1/2 ppd Vaping Use Vaping Use: Never used Substance Use Topics Alcohol use: Yes Comment: rare Drug use: No Review of Systems Constitutional: Negative for chills. Eyes: Negative for photophobia, pain, discharge, redness, itching and visual disturbance. Respiratory: Negative for apnea, cough, choking and chest tightness. Cardiovascular: Negative for chest pain, palpitations and leg swelling. Gastrointestinal: Negative for abdominal pain, nausea and vomiting. Genitourinary: Positive for frequency and urgency. Negative for dysuria, flank pain, hematuria, hesitancy, vaginal bleeding and vaginal discharge. Musculoskeletal: Negative for back pain and gait problem. Skin: Negative for color change, pallor, rash and wound. Allergic/Immunologic: Negative for environmental allergies, food allergies and immunocompromised state. Hematological: Negative for adenopathy. Does not bruise/bleed easily. Psychiatric/Behavioral: Negative for agitation and behavioral problems. Objective BP 122/78 Pulse 107 Temp 37.1 C (98.8 F) (Tympanic) Resp 18 Wt 122 kg (269 lb) SpO2 95% BMI 48.45 kg/m Physical Exam Vitals and nursing note reviewed. Constitutional: General: She is not in acute distress. Appearance: Normal appearance. She is obese. She is not ill-appearing, toxic-appearing or diaphoretic. HENT: Head: Normocephalic and atraumatic. Right Ear: Ear canal and external ear normal. Left Ear: Ear canal and external ear normal. Nose: Nose normal. No congestion or rhinorrhea. Mouth/Throat: Mouth: Mucous membranes are moist. Pharynx: No oropharyngeal exudate or posterior oropharyngeal erythema. Eyes: General: Right eye: No discharge. Left eye: No discharge. Extraocular Movements: Extraocular movements intact. Conjunctiva/sclera: Conjunctivae normal. Pupils: Pupils are equal, round, and reactive to light. Cardiovascular: Rate and Rhythm: Normal rate and regular rhythm. Pulses: Normal pulses. Heart sounds: Normal heart sounds. No murmur heard. No friction rub. Pulmonary: Effort: Pulmonary effort is normal. No respiratory distress. Breath sounds: Normal breath sounds. No stridor. No wheezing, rhonchi or rales. Chest: Chest wall: No tenderness. Abdominal: General: Abdomen is flat. There is no distension. Palpations: Abdomen is soft. There is no mass. Tenderness: There is no abdominal tenderness. There is no right CVA tenderness, left CVA tenderness, guarding or rebound. Hernia: No hernia is present. Musculoskeletal: General: No swelling, tenderness, deformity or signs of injury. Normal range of motion. Cervical back: Normal range of motion and neck supple. No rigidity. Right lower leg: No edema. Left lower leg: No edema. Lymphadenopathy: Cervical: No cervical adenopathy. Skin: General: Skin is warm and dry. Capillary Refill: Capillary refill takes less than 2 seconds. Coloration: Skin is not jaundiced or pale. Findings: No bruising, erythema, lesion or rash. Neurological: General: No focal deficit present. Mental Status: She is alert and oriented to person, place, and time. Cranial Nerves: No cranial nerve deficit. Sensory: No sensory deficit. Motor: No weakness. Coordination: Coordination normal. Gait: Gait normal. Psychiatric: Mood and Affect: Mood normal. Behavior: Behavior normal. Thought Content: Thought content normal. Judgment: Judgment normal. Assessment and Plan ASSESSMENT/PLAN: 1. Cystitis with hematuria - ICD9: 595.9, ICD10: N30.91 X 1 week acute - UA positive for nicole esterase and hematuria - Send urine for culture - Begin treatment with Keflex - Patient education for prevention given - UA DIP, URINE (POC) - URINE CULTURE Rosanna Worley APRN.SHEET HEATER documented in this encounter [facility] 01-27-2023 Miscellaneous Notes Pt rescheduled appointment. Rosanna Laurent LPN Yes let's push it back a week Noy Douglas APRN.SHEET HEATER Tiana Contaced with update. They could not reach the pt for the overnight pulse ox. Pt finally reached out to them 01/26/23 so she will not get the equipment until 01/28/23. Pt is scheduled for follow up 01/29/23 but results will not be back for that appt according to Tiana. documented in this encounter [facility] 12-30-2022 Miscellaneous Notes The following approved medication requests have been transmitted electronically. Requested Prescriptions Signed Prescriptions Disp Refills lisinopril-hydroCHLOROthiazide (ZESTORETIC) 20-12.5 mg per tablet 180 tablet 0 Sig: Take 2 tablets by mouth once daily. Authorizing Provider: DEWAYNE CHUNG sertraline (ZOLOFT) 100 mg tablet 135 tablet 0 Sig: Take 1.5 tablets by mouth every evening. Authorizing Provider: DEWAYNE CHUNG buPROPion SR (WELLBUTRIN SR) 150 mg 12 hr tablet 90 tablet 0 Sig: Take 1 tablet by mouth once daily. Authorizing Provider: DEWAYNE CHUNG verapamil SR (CALAN SR) 180 mg CR tablet 135 tablet 0 Sig: Take 1.5 tablets by mouth once daily. Authorizing Provider: DEWAYNE CHUNG omeprazole (PRILOSEC) 20 mg capsule 90 capsule 0 Sig: Take 1 capsule by mouth once daily. Authorizing Provider: DEWAYNE CHUNG MD Patient last visit 11/24/22 Follow up appointment scheduled none advised to return in a year Naomy Jones Ma Patient has been identified by name and date of : Yes Requested Prescriptions Pending Prescriptions Disp Refills lisinopril-hydroCHLOROthiazide (ZESTORETIC) 20-12.5 mg per tablet 180 tablet 1 Sig: Take 2 tablets by mouth once daily. sertraline (ZOLOFT) 100 mg tablet 135 tablet 1 Sig: Take 1.5 tablets by mouth every evening. buPROPion SR (WELLBUTRIN SR) 150 mg 12 hr tablet 90 tablet 1 Sig: Take 1 tablet by mouth once daily. pravastatin (PRAVACHOL) 40 mg tablet 90 tablet 1 Sig: Take 1 tablet by mouth daily at bedtime. verapamil SR (CALAN SR) 180 mg CR tablet 135 tablet 1 Sig: Take 1.5 tablets by mouth once daily. omeprazole (PRILOSEC) 20 mg capsule 90 capsule 1 Sig: Take 1 capsule by mouth once daily. RX INSTRUCTIONS: Patient aware RX will be sent to pharmacy. No need to notify patient. Rachael Grey documented in this encounter [facility] 12-10-2022 Miscellaneous Notes Spoke with pt and information listed below given. Pt verbalizes understanding. Sayra Valencia LPN Let patient know script sent in. The following approved medication requests have been transmitted electronically. Requested Prescriptions Signed Prescriptions Disp Refills pravastatin (PRAVACHOL) 40 mg tablet 90 tablet 1 Sig: Take 1 tablet by mouth daily at bedtime. Authorizing Provider: DEWAYNE CHUNG MD Per below pt is out of med and requesting refill today. Call pt once rx has been sent. Last refill 06/11/22 Qty: 90 with 1 refill [facility] 11/04/22 NOV pt is seen yearly Kina Villegas LPN Patient is out of this medication and needs today. Patient has been identified by name and date of : Yes Requested Prescriptions Pending Prescriptions Disp Refills pravastatin (PRAVACHOL) 40 mg tablet 90 tablet 1 Sig: Take 1 tablet by mouth daily at bedtime. RX INSTRUCTIONS: Patient requesting a call when RX is approved and sent to the pharmacy. Genevieve Ricardo documented in this encounter [facility] 12-01-2022 Instructions Wanda Pa APRN.SHEET HEATER - 12/01/2022 7:19 AM EDT Weight Management: You have taken the initiative to become a healthier version of yourself and to decrease the risks that come with the diagnosis of obesity or being overweight. We are happy to help you along this journey but know this is a lifetime commitment to yourself. Losing just 3-10 % of your body weight can decrease your risks of many other serious diseases like diabetes, heart disease, osteoarthritis, hypertension, cancer and so many others. During this time you will have triumphs, setbacks and plateaus- your body will fight against you but we are here to give you the tools and the resources to continue to reach your goals. We recommend during this time that you track your weight daily or at least five times per week as well as tracking your nutrition. You may track your activity but do not use hitting your fitness goals as a reward system as this can derail your success. We recommend weekly physical activity of 150-200 min/week-although physical exercise can help with maintaining weight loss it adds only a little benefit for salvage determiner weight loss success. However, exercise can have many other benefits including improving mental health and cardiovascular health. Do not feel overwhelmed- we will discuss this more at your visits. Our time will be limited with each visit but we will try to touch on factors that are important to you and to your overall goals. We will try to set a goal at the end of each visit and then decide on what we want to accomplish with your upcoming visits. On your After Visit Summary (AVS), we will provide you with information that may be useful during this journey so please remember to read the information given. Check your AVS a few days after your appointment because we may have added more information specifically for you. Remember that if you are placed on medications, they are tools that can help you succeed but you must put in the work. Your nutrition will be the main factor. There are medications that work well for some and not for others- so it may take time to find the right combination for your body's needs. Please remember that factors such as other health co-morbidities one might have, as well as insurance coverage, will play a factor in determining which medications you can take. Most of the newer medications that are all the craze ,injectables, may not be covered or will only be covered if you fail months of oral medications- so please be patient with the process. It would be beneficial for you to determine what your insurance covers as far as Anti-Obesity Medications (AOMs), Nutritional Counseling, behavioral intervention and weight loss surgery. Please call your health insurance prior to your first appointment and write down coverage for each of those therapies. Most importantly, remember that ultimately our goal is to help you get to a healthier weight which will decrease your overall health risks. We will work together as a team and try to reach your personalized goals as well. We appreciate that you have entrusted us with your health and know that we are committed to this process with you. Obesity Obesity is a disease that affects nearly one-third of the adult Stateless population (approximately 60 million). The number of overweight and obese Americans has continued to increase since 1959, a trend that is not slowing down. Today, 64.5 percent of adult Americans (about 127 million) are categorized as being overweight or obese. Each year, obesity causes at least 300,000 excess deaths in the [place] and healthcare costs of Stateless adults with obesity amount to approximately $100 billion. (AOA) Obesity is a complex, multi-factorial chronic disease involving: Environmental (social and cultural) The tendency toward obesity is a result of our environment: lack of physical activity along with high-calorie, low-cost foods. Home, work, school, and even the community can inhibit a healthy lifestyle. Genetic (Hereditary plays a large role in determining how susceptible people are to overweight and obesity). Genes also influence how the body stiles calories for energy and stores fat. Physiologic, metabolic, behavioral (eating too many calories while not getting enough exercise) and psychological components. It is the second leading cause of preventable in the [place] Behavioral changes brought on by economic development, modernization and urbanization have been linked to the rise in global obesity. Calculating BMI Body Mass Index (BMI) is a measurement tool used to determine excess body weight. Overweight is defined as a BMI of 25 or more, obesity is 30 or more, and severe obesity is 40 or more. You can visit www.nhlbi.nih.gov to estimate your BMI. Obesity Related Health Conditions The morbidity and mortality risk from being overweight is proportional to its degree. Individuals with morbid obesity, therefore, have the highest risk for developing numerous illnesses that often reduce mobility and quality of life due to their excess weight. In particular, type 2 diabetes, gallbladder disease and osteoarthritis have been found to increase concurrently with higher BMI. Premature , a 20-year shorter life span, has also been found in individuals with morbid obesity. All of the systems that make the body function are affected by morbid obesity. Type 2 diabetes Gallbladder disease and gallstones Liver disease Osteoarthritis, a disease in which the joints deteriorate. This is possibly the result of excess weight on the joints. Gout, another disease affecting the joints Pulmonary (breathing) problems, including sleep apnea in which a person can stop breathing for a short time during sleep Reproductive problems in women, including menstrual irregularities and infertility Gastroesophageal reflux/heartburn Hypertension Heart Disease Depression Psychological disorders/social impairments Urinary Stress Incontinence Obesity is also linked to higher rates of certain types of cancer. Obese men are more likely than non-obese men to from cancer of the colon, rectum, or prostate. Obese women are more likely than non-obese women to from cancer of the gallbladder, breast, uterus, cervix, or ovaries [email or web address] Nutrition - Eat primarily whole foods. Limit carbs, especially processed carbs. - Do not drink your calories - 30 grams of protein for breakfast decreases your hunger during the day by up to 40 % Premier Protein or generic 30 gm protein 1 gm sugar - Walk for 15 minutes immediately a meal. Sincerely, Jeanie De La Vega MD, FACOG & Wanda Pa CNP documented in this encounter [facility] 11-27-2022 Note HNO ID: [id number] Author: Yan Bell Jr., MD Service: ? Author Type: Physician Type: Progress Notes Filed: 11/27/2022 12:47 PM Note Text: ESTABLISHED PATIENT VISIT CHIEF COMPLAINT: Follow Up HISTORY OF PRESENT ILLNESS: Dianne Holly is a 71 year old female, BMI 48.41 kg/m2 with a PMH significant for and per last note of 08/07/22: 1. MÓNICA (obstructive sleep apnea) - ICD9: 327.23, ICD10: G47.33 (primary diagnosis) 2. Sleep related hypoxia - ICD9: 327.24, ICD10: G47.34 3. Class 3 severe obesity with body mass index (BMI) of 45.0 to 49.9 in adult, unspecified obesity type, unspecified whether serious comorbidity present (HCC) - ICD9: 278.01, V85.42, ICD10: E66.01, Z68.42 Patient with moderate MÓNICA as determined by HSAT (likely underestimated due to limitations of HSAT study given lack of EEG). Risk factors for MÓNICA include crowded airway and obesity. Discussed with patient: the physiology of OSAS, medical conditions associated with OSAS (DM, HTN, CAD, Depression, Stroke, Headache...) and treatment options (UPPP, Dental appliances, CPAP, Inspire...). Given the severity of patient's OSAS and associated hypoxia during HSAT (unknown if or if not artifact) feel appropriate for patient to undergo PAP titration with transcutaneous CO2. Pt agrees with plan but requests study be performed at [facility]. Will order treatment based on PAP titration results with follow up approximately 2-3 months later. Pt agrees with plan. PAP titration was performed at [facility] and per report of 08/27/22, recommended Auto PAP 13-20 cmH2O with 1LPM of O2. PAP data download shows pt using 39/39 days since received device. Set at 13-20 cmH2O. Avg use of 4 hours and 56 minutes. 95% pressure is 17.1 cmH2O. 95% leak is 25.8 LPM. AHI is 1.8. Note severity of leak varies from night to night. Pt did have to take a week off her PAP device due to a COPD exacerbation. States what she does several times in her sleep is that she takes the mask off and wakes up and finds the mask on the night stand or the floor. States she feels like she fights with it a lot. Initially felt real dry on the device. However, now not having the dryness and more comfortable to wear. Taking mask off does not occur everywhere. She is not sure if the pressure feels like too much. EPR level 3 cmH2O already set. Currently using an under the nose over the mouth FFM with tubing in front. Pt feels more awake when wakes in AM and more energy during the day. REVIEW OF SYSTEMS GENERAL:No weight loss, malaise or fevers. HEENT:Negative for frequent or significant headaches, No changes in hearing or vision, no nose bleeds or other nasal problems NECK:Negative for lumps, goiter, pain and significant neck swelling RESPIRATORY: See HPI. Pt having FRIED although today reports good day. CARDIOVASCULAR: Negative for chest pain, leg swelling or palpitations. GASTROINTESTINAL: Negative for abdominal discomfort, blood in stools or black stools or change in bowel habits GENITOURINARY: No history of dysuria, frequency or incontinence MUSCULOSKELETAL: Negative for joint pain or swelling, back pain or muscle pain. NEUROLOGIC:Negative for focal numbness or weakness, headaches and dizziness or syncope, vision changes, speech/languag changes - EXCEPT that as per HPI above. SKIN:Negative for lesions, rash, and itching. LAB/IMAGING: Those performed since patient's last visit have been reviewed. WBC (k/uL) Date Value 06/16/2022 8.22 RBC (m/uL) Date Value 06/16/2022 4.96 Hemoglobin (g/dL) Date Value 06/16/2022 14.5 Hematocrit (%) Date Value 06/16/2022 46.3 (H) MCV (fL) Date Value 06/16/2022 93.3 MCH (pg) Date Value 06/16/2022 29.2 MCHC (g/dL) Date Value 06/16/2022 31.3 RDW-CV (%) Date Value 06/16/2022 14.4 Platelet Count (k/uL) Date Value 06/16/2022 293 MPV (fL) Date Value 06/16/2022 10.7 Glucose (mg/dL) Date Value 06/16/2022 84 BUN (mg/dL) Date Value 06/16/2022 28 (H) Creatinine (mg/dL) Date Value 06/16/2022 1.13 (H) Sodium (mmol/L) Date Value 06/16/2022 140 Potassium (mmol/L) Date Value 06/16/2022 4.5 Chloride (mmol/L) Date Value 06/16/2022 103 CO2 (mmol/L) Date Value 06/16/2022 25 Protein, Total (g/dL) Date Value 06/16/2022 6.9 Albumin (g/dL) Date Value 06/16/2022 4.3 Calcium, Total (mg/dL) Date Value 06/16/2022 9.9 Alkaline Phosphatase (U/L) Date Value 06/16/2022 71 Bilirubin, Total (mg/dL) Date Value 06/16/2022 0.6 AST (U/L) Date Value 06/16/2022 15 ALT (U/L) Date Value 06/16/2022 17 Hep C Antibody IA (no units) Date Value 04/14/2016 Negative MEDICATIONS: albuterol HFA (PROVENTIL HFA, VENTOLIN HFA) 90 mcg/actuation inhaler Inhale 2 Puffs as instructed every 6 hours as needed. ondansetron orally disintegrating (ZOFRAN ODT) 4 mg disintegrating tablet Take 1 tablet by mouth every 8 hours as needed. triamcinolone acetonide (KENALOG) 0.1 % (more content not included)... [facility] 11-27-2022 Instructions Yan Bell Jr., MD - 11/27/2022 12:05 PM EDT PAP Supply Guidelines Below are the guidelines for reordering your supplies. You will be responsible for your deductible, co-payments, and out of pocket expenses. Item Medicare & Commercial Insurance Medicaid & HCAP Nasal Mask (no headgear) 1 every 3 months 1 per year Nasal Mask Cushion 1 every month 2 per year Full Face Mask (no headgear) 1 every 3 months 1 per year Full Face Mask Cushion 1 every month *Self-Pay Nasal Pillows 2 every month 2 per year Headgear 1 every 6 months 1 per year Chin Strap 1 every 6 months 2 per year Tubing 1 every 3 months 1 per year Filters: Reusable 1 every 6 months 4 per year Filters: Disposable 2 every month 1 per month Humidifier Chamber(disposable) 1 every 6 months *Self-Pay documented in this encounter [facility] 11-27-2022 History of Presen t illness Narrative ESTABLISHED PATIENT VISIT CHIEF COMPLAINT: Follow Up HISTORY OF PRESENT ILLNESS: Dianne Holly is a 71 year old female, BMI 48.41 kg/m2 with a PMH significant for and per last note of 08/07/22: 1. MÓNICA (obstructive sleep apnea) - ICD9: 327.23, ICD10: G47.33 (primary diagnosis) 2. Sleep related hypoxia - ICD9: 327.24, ICD10: G47.34 3. Class 3 severe obesity with body mass index (BMI) of 45.0 to 49.9 in adult, unspecified obesity type, unspecified whether serious comorbidity present (HCC) - ICD9: 278.01, V85.42, ICD10: E66.01, Z68.42 Patient with moderate MÓNICA as determined by HSAT (likely underestimated due to limitations of HSAT study given lack of EEG). Risk factors for MÓNICA include crowded airway and obesity. Discussed with patient: the physiology of OSAS, medical conditions associated with OSAS (DM, HTN, CAD, Depression, Stroke, Headache...) and treatment options (UPPP, Dental appliances, CPAP, Inspire...). Given the severity of patient's OSAS and associated hypoxia during HSAT (unknown if or if not artifact) feel appropriate for patient to undergo PAP titration with transcutaneous CO2. Pt agrees with plan but requests study be performed at [facility]. Will order treatment based on PAP titration results with follow up approximately 2-3 months later. Pt agrees with plan. PAP titration was performed at [facility] and per report of 08/27/22, recommended Auto PAP 13-20 cmH2O with 1LPM of O2. PAP data download shows pt using 39/39 days since received device. Set at 13-20 cmH2O. Avg use of 4 hours and 56 minutes. 95% pressure is 17.1 cmH2O. 95% leak is 25.8 LPM. AHI is 1.8. Note severity of leak varies from night to night. Pt did have to take a week off her PAP device due to a COPD exacerbation. States what she does several times in her sleep is that she takes the mask off and wakes up and finds the mask on the night stand or the floor. States she feels like she fights with it a lot. Initially felt real dry on the device. However, now not having the dryness and more comfortable to wear. Taking mask off does not occur everywhere. She is not sure if the pressure feels like too much. EPR level 3 cmH2O already set. Currently using an under the nose over the mouth FFM with tubing in front. Pt feels more awake when wakes in AM and more energy during the day. REVIEW OF SYSTEMS GENERAL:No weight loss, malaise or fevers. HEENT:Negative for frequent or significant headaches, No changes in hearing or vision, no nose bleeds or other nasal problems NECK:Negative for lumps, goiter, pain and significant neck swelling RESPIRATORY: See HPI. Pt having FRIED although today reports good day. CARDIOVASCULAR: Negative for chest pain, leg swelling or palpitations. GASTROINTESTINAL: Negative for abdominal discomfort, blood in stools or black stools or change in bowel habits GENITOURINARY: No history of dysuria, frequency or incontinence MUSCULOSKELETAL: Negative for joint pain or swelling, back pain or muscle pain. NEUROLOGIC:Negative for focal numbness or weakness, headaches and dizziness or syncope, vision changes, speech/languag changes - EXCEPT that as per HPI above. SKIN:Negative for lesions, rash, and itching. LAB/IMAGING: Those performed since patient's last visit have been reviewed. WBC (k/uL) Date Value 06/16/2022 8.22 RBC (m/uL) Date Value 06/16/2022 4.96 Hemoglobin (g/dL) Date Value 06/16/2022 14.5 Hematocrit (%) Date Value 06/16/2022 46.3 (H) MCV (fL) Date Value 06/16/2022 93.3 MCH (pg) Date Value 06/16/2022 29.2 MCHC (g/dL) Date Value 06/16/2022 31.3 RDW-CV (%) Date Value 06/16/2022 14.4 Platelet Count (k/uL) Date Value 06/16/2022 293 MPV (fL) Date Value 06/16/2022 10.7 Glucose (mg/dL) Date Value 06/16/2022 84 BUN (mg/dL) Date Value 06/16/2022 28 (H) Creatinine (mg/dL) Date Value 06/16/2022 1.13 (H) Sodium (mmol/L) Date Value 06/16/2022 140 Potassium (mmol/L) Date Value 06/16/2022 4.5 Chloride (mmol/L) Date Value 06/16/2022 103 CO2 (mmol/L) Date Value 06/16/2022 25 Protein, Total (g/dL) Date Value 06/16/2022 6.9 Albumin (g/dL) Date Value 06/16/2022 4.3 Calcium, Total (mg/dL) Date Value 06/16/2022 9.9 Alkaline Phosphatase (U/L) Date Value 06/16/2022 71 Bilirubin, Total (mg/dL) Date Value 06/16/2022 0.6 AST (U/L) Date Value 06/16/2022 15 ALT (U/L) Date Value 06/16/2022 17 Hep C Antibody IA (no units) Date Value 04/14/2016 Negative MEDICATIONS: albuterol HFA (PROVENTIL HFA, VENTOLIN HFA) 90 mcg/actuation inhaler Inhale 2 Puffs as instructed every 6 hours as needed. ondansetron orally disintegrating (ZOFRAN ODT) 4 mg disintegrating tablet Take 1 tablet by mouth every 8 hours as needed. triamcinolone acetonide (KENALOG) 0.1 % cream Apply 1 application to affected area three times daily. Apply sparingly to area for rash/itching. fluticasone furoate (ARNUITY ELLIPTA) 100 mcg/actuation inhaler Inhale 1 Puff as instructed once daily. Do a quick inhalation prior to brushing teeth. Then brush teeth, rinse, gargle and spit. cyanocobalamin (VITAMIN B-12) 1,000 mcg tab Take 1 tablet by mouth once daily. solifenacin (VESICARE) 5 mg tablet Take 1 tablet by mouth once daily. buPROPion SR (WELLBUTRIN SR) 150 mg 12 hr tablet Take 1 tablet by mouth once daily. lisinopril-hydroCHLOROthiazide (ZESTORETIC) 20-12.5 mg per tablet Take 2 tablets by mouth once daily. omeprazole (PRILOSEC) 20 mg capsule Take 1 capsule by mouth once daily. verapamil SR (CALAN SR) 180 mg CR tablet Take 1.5 tablets by mouth once daily. sertraline (ZOLOFT) 100 mg tablet Take 1.5 tablets by mouth every evening. pravastatin (PRAVACHOL) 40 mg tablet Take 1 tablet by mouth daily at bedtime. MEDICAL SUPPLY BEDSIDE COMMODE. dx: right total hip replacement. z96.641 COMPOUNDED PRESCRIPTION Bedside Commode Dx: right total hip replacement Z96.641 HISTORIES PAST MEDICAL HISTORY Diagnosis Date Adenoma of left adrenal gland 12/06/2018 Seen [facility] ER CT 11/28/2018 was stable in size since CT done 11/2015: benign. ADRENAL NODULE 11/17/2007 Anxiety state 11/19/2006 Arthritis Benign neoplasm of colon BPPV (benign paroxysmal positional vertigo) 04/03/2015 Chronic left shoulder pain 09/17/2015 Class 3 severe obesity due to excess calories without serious comorbidity with body mass index (BMI) of 45.0 to 49.9 in adult ([facility]) 06/18/2014 Coronary artery calcification 09/08/[address] 08/2022 DDD (degenerative disc disease), lumbar 01/15/2016 Delayed emergence from general anesthesia Diverticulitis of large intestine without perforation or abscess without bleeding 06/03/2016 Emphysema of lung ([facility]) 06/18/2014 Essential hypertension 11/19/2006 Family history of early CAD 09/08/2022 Brother at age 47 Gastroesophageal reflux disease without esophagitis 11/19/2006 Generalized osteoarthrosis, unspecified site 11/19/2006 Internal hemorrhoids Medicare annual wellness visit, initial 11/23/2017 Medicare Part B: 11/29/2016 last done: 11/16/2018 Mixed hyperlipidemia 03/19/2008 Moderate obstructive sleep apnea 08/03/2022 Consult sleep med 07/2022 Osteoarthritis of lumbar spine 01/15/2016 Osteoarthritis of multiple joints 11/19/2006 Overactive bladder 01/16/2019 Primary osteoarthritis of right hip 09/21/2016 Primary ovarian failure 11/23/2017 Recurrent major depressive disorder, in remission ([facility]) 11/23/2017 Smoker 05/27/2010 Status post right hip replacement 10/01/2017 Venous insufficiency (chronic) (peripheral) 10/16/2014 Vertigo 06/14/2017 Vitamin B12 deficiency 05/26/2021 FAMILY HISTORY Problem Relation Age of Onset Colon Cancer Mother Diabetes Mother rectal cancer/kidney failure Melanoma Father other (obese) Sister hypertension Colon Cancer Sister Breast Cancer Sister 55 triple negative Blood Disease Sister amyloidosis other (obese) Brother Coronary Artery Disease Brother 47 1st AMI Heart Attack Brother other (Liver Issues) Daughter Alcohol/Drug Daughter SOCIAL HISTORY Social History Tobacco Use Smoking status: Every Day Packs/day: 0.80 Years: 50.00 Additional pack years: 0.00 Total pack years: 40.00 Types: Cigarettes Start date: 03/01/1967 Smokeless tobacco: Never Tobacco comments: recently cut back to 1/2 ppd Vaping Use Vaping Use: Never used Substance Use Topics Alcohol use: Yes Comment: rare Drug use: No PHYSICAL EXAMINATION BP 108/71 Pulse 71 Resp 18 Wt 121.9 kg (268 lb 12.8 oz) SpO2 97% BMI 48.41 kg/m GENERAL EXAM: General appearance: NAD, pleasant. HEENT: NC/AT, nasal congestion absent, no oral lesions, membranes moist. Fuller IV. NECK: ROM nml. Lungs: Scattered wheezes, I>E. CV: RRR nl S1, S2. NEUROLOGICAL EXAM: General: Awake, alert, oriented x3 (person,place,time), speech fluent, no dysarthria; comprehension, naming, repetition intact. Fund of knowledge grossly nml. CN: PERRL, EOMI and without nystagmus, VFF to confrontation, facial sensation and strength are normal and symmetric, hearing is intact, palate and tongue movements are intact and symmetric. SCM and trapezius strength normal. Motor: Normal tone, bulk and strength (5/5) bilaterally (throughout extremities x4). Coordination: FNF, JULY, HTS intact. No tremors. Sensation: Light touch intact throughout. No evidence of neglect. Gait: Stable with normal stride and arm swing. Assessment and Plan: ASSESSMENT/PLAN: 1. MÓNICA (obstructive sleep apnea) - ICD9: 327.23, ICD10: G47.33 (primary diagnosis) 2. Sleep related hypoxia - ICD9: 327.24, ICD10: G47.34 3. Class 3 severe obesity with body mass index (BMI) of 45.0 to 49.9 in adult, unspecified obesity type, unspecified whether serious comorbidity present (HCC) - ICD9: 278.01, V85.42, ICD10: E66.01, Z68.42 Patient compliant by both subjective and objective history with perceived benefit as above, but on many nights, not wearing the entire night through for uncertain reasons. Differential would include mask leaks based on download vs difficulties tolerating CPAP as result of COPD vs response to untreated hypoxia. [place] [facility] [place] pt undergo nocturnal oximetry study at home with PAP and O2 (1LPM) to see if higher O2 setting necessary. However, if after mask fitting and if no need for change in O2, and pt still having PAP issues, may need to consider referral for bilevel PAP titration study. Pt is understanding and agrees with plan. Will have pt return in 4-8 weeks to see how she is doing and determine future plans. Encouraged compliance. Reminded pt to clean and replace equipment regularly. Advised pt not to drive or operate heavy machinery if sleepy. 4. Chronic obstructive pulmonary disease, unspecified COPD type (HCC) - ICD9: 496, ICD10: J44.9 [address]ouraged follow up with Dr. Chung and informed Dr. Chung through [employer]. Yan Bell MD I spent a total of 25 minutes on the date of the service which included preparing to see the patient, [id number] patient care, completing clinical documentation, obtaining and/or reviewing separately obtained history, performing a medically appropriate examination, counseling and educating the patient/family/caregiver, ordering medications, tests, or procedures, communicating with other HCPs (not separately reported), independently interpreting results (not separately reported), and communicating results to the patient/family/caregiver (results = PAP data download). documented in this encounter [facility] 11-18-2022 Note Patient Outreach (IN [facility]) DIANNE HOLLY ([id number]) 1950 F Date Time Provider Department 11/18/22 DEWAYNE CHUNG During your visit today, we recorded the following information about you: Allergies As of Date: 11/18/2022 Noted Allergy Reaction FLAGYL (METRONIDAZOLE HCL) 01/29/2009 9 - Itching 14 - Other: See Comments Comments: nausea/ throat swelling IBUPROFEN 07/04/2012 11 - Vomiting Comments: Hematemesis - [facility] 06/21/2012 NICKEL 11/10/2016 2 - Rash Comments: Can only wear gold earrings Date Reviewed: 11/16/2022 Reviewed by: Keke Bae APRN.SHEET HEATER - Fully Assessed Visit Diagnosis:Encounter for screening mammogram for breast cancer [Z12.31] Order(s):[facility] [[id number]] Order #: [id number] FUTURE Prescriptions as of 11/23/2022 - doxycycline monohydrate 100 mg tablet Take 1 tablet by mouth twice daily for 7 days. - albuterol HFA (PROVENTIL HFA, VENTOLIN HFA) 90 mcg/actuation inhaler Inhale 2 Puffs as instructed every 6 hours as needed. - ondansetron orally disintegrating (ZOFRAN ODT) 4 mg disintegrating tablet Take 1 tablet by mouth every 8 hours as needed. - triamcinolone acetonide (KENALOG) 0.1 % cream Apply 1 application to affected area three times daily. Apply sparingly to area for rash/itching. - fluticasone furoate (ARNUITY ELLIPTA) 100 mcg/actuation inhaler Inhale 1 Puff as instructed once daily. Do a quick inhalation prior to brushing teeth. Then brush teeth, rinse, gargle and spit. - cyanocobalamin (VITAMIN B-12) 1,000 mcg tab Take 1 tablet by mouth once daily. - solifenacin (VESICARE) 5 mg tablet Take 1 tablet by mouth once daily. - buPROPion SR (WELLBUTRIN SR) 150 mg 12 hr tablet Take 1 tablet by mouth once daily. - lisinopril-hydroCHLOROthiazide (ZESTORETIC) 20-12.5 mg per tablet Take 2 tablets by mouth once daily. - omeprazole (PRILOSEC) 20 mg capsule Take 1 capsule by mouth once daily. - verapamil SR (CALAN SR) 180 mg CR tablet Take 1.5 tablets by mouth once daily. - sertraline (ZOLOFT) 100 mg tablet Take 1.5 tablets by mouth every evening. - pravastatin (PRAVACHOL) 40 mg tablet Take 1 tablet by mouth daily at bedtime. - MEDICAL SUPPLY BEDSIDE COMMODE. dx: right total hip replacement. 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*12/02/2006 06/18/2014 ADRENAL NODULE [E27.8] 11/17/2007 07/28/2017 Diverticulosis of large intestine [K57.30] 11/17/2007 07/28/2017 Mixed hyperlipidemia [E78.2] 03/19/2008 Palpitations [R00.2] 03/23/2008 06/18/2014 HYPERGLYCEMIA [R79.89] 04/10/2008 01/20/2016 Abdominal pain, left lower quadrant [R10.32] 04/01/2009 06/18/2014 Benign neoplasm of colon(tubular adenoma) [D12.*04/01/2009 Internal hemorrhoids without mention of complic*04/01/2009 06/18/2014 COPD (chronic obstructive pulmonary disease) [J*04/28/2010 06/18/2014 Smoker [F17.200] 05/27/2010 Dizziness and giddiness [R42] 07/02/2011 06/18/2014 Emphysema of lung (HCC) [J43.9] 06/18/2014 Class 3 severe obesity due to excess calories w*06/18/2014 Venous insufficiency (chronic) (peripheral) [I8*10/16/2014 BPPV (benign paroxysmal positional vertigo) [H8*04/03/2015 01/20/2016 Chronic right-sided low back pain without sciat*09/17/2015 07/28/2017 Chronic left shoulder pain [M25.512, G89.29] 09/17/2015 Osteoarthritis of lumbar spine [M47.816] 01/15/2016 DDD (degenerative disc disease), lumbar [M51.36]01/15/2016 Diverticulitis of large intestine without perfo*06/03/2016 07/28/2017 Primary osteoarthritis of right hip [M16.11] 09/21/2016 Chronic midline low back pain without sciatica *11/09/2016 07/28/2017 CKD (chronic kidney disease) stage 3, GFR 30-59*03/12/2017 07/28/2017 Vertigo [R42] 06/14/2017 Osteoarthritis of right hip [M16.11] 06/23/2017 06/25/2017 Medicare annual wellness visit, initial [Z00.00]11/23/2017 Screening for osteoporosis [Z13.820] 11/23/2017 Primary ovarian failure [E28.39] 11/23/2017 Encounter for screening mammogram for breast ca*11/23/2017 Recurrent major depressive disorder, in remissi*11/23/2017 Current use of proton pump inhibitor [Z79.899] 11/23/2017 06/15/2022 BPPV (benign paroxysmal positional vertigo) [H8*04/03/2015 Diverticulitis of large intestine without perfo*06/03/2016 Internal hemorrhoids [K64.8] Adenoma of left adrenal gland [D35.02] 12/06/2018 Overactive bladder [N32.81] 01/16/2019 Medication management [Z79.899] 07/18/2019 Advance directive discussed with patient [Z71.8*05/26/2021 Avani (more content not included)... [facility] 11-16-2022 Note HNO ID: [id number] Author: May Villanueva RT(R) Service: Radiology Author Type: Technologist Type: Progress Notes Filed: 11/16/2022 1:53 PM Note Text: Radiology Service Progress Note PATIENT NAME: Dianne Holly DATE OF SERVICE: November 16, 2022 TIME: 1:40 PM PATIENT IDENTITY VERIFICATION COMPLETED USING TWO (2) IDENTIFIERS: Name and Date of confirmed by patient verbally. FALL SCREENING: Has the patient had 2 falls in the last year or 1 fall with injury or currently using an Ambulatory Assistive Device (Walker, Cane, Wheelchair, Crutches, etc.)? No PATIENT GENDER DATA: Female. status: : No status: NO. PATIENT RELEVANT IMPLANT DATA REVIEWED: Yes RADIOLOGY DEPARTMENT: General X-ray: Exam(s) Completed: Chest X-Ray Rib X-Ray: Right PERIPHERAL IV DATA: Not applicable SIGNED BY: RT Shelli(R) November 16, 2022 1:40 PM [facility] 11-16-2022 Note HNO ID: [id number] Author: Keke Bae APRN.SHEET HEATER Service: ? Author Type: Nurse Practitioner Type: Progress Notes Filed: 11/16/2022 2:22 PM Note Text: Subjective HPI HPI Dianne Holly is a 71 year old female who presents today for CC of cough, congestion. This started 1 week ago. Has tried otc medication for relief. Symptoms are worsened by nothing. Risk factors hx of copd, smoker. .Patient presents with: Cough: congestion and rib pain x over 1 week PAST MEDICAL HISTORY Diagnosis Date Adenoma of left adrenal gland 12/06/2018 Seen [facility] ER CT 11/28/2018 was stable in size since CT done 11/2015: benign. ADRENAL NODULE 11/17/2007 Anxiety state 11/19/2006 Arthritis Benign neoplasm of colon BPPV (benign paroxysmal positional vertigo) 04/03/2015 Chronic left shoulder pain 09/17/2015 Class 3 severe obesity due to excess calories without serious comorbidity with body mass index (BMI) of 45.0 to 49.9 in adult ([facility]) 06/18/2014 Coronary artery calcification 09/08/[address] 08/2022 DDD (degenerative disc disease), lumbar 01/15/2016 Delayed emergence from general anesthesia Diverticulitis of large intestine without perforation or abscess without bleeding 06/03/2016 Emphysema of lung ([facility]) 06/18/2014 Essential hypertension 11/19/2006 Family history of early CAD 09/08/2022 Brother at age 47 Gastroesophageal reflux disease without esophagitis 11/19/2006 Generalized osteoarthrosis, unspecified site 11/19/2006 Internal hemorrhoids Medicare annual wellness visit, initial 11/23/2017 Medicare Part B: 11/29/2016 last done: 11/16/2018 Mixed hyperlipidemia 03/19/2008 Moderate obstructive sleep apnea 08/03/2022 Consult sleep med 07/2022 Osteoarthritis of lumbar spine 01/15/2016 Osteoarthritis of multiple joints 11/19/2006 Overactive bladder 01/16/2019 Primary osteoarthritis of right hip 09/21/2016 Primary ovarian failure 11/23/2017 Recurrent major depressive disorder, in remission (HCC) 11/23/2017 Smoker 05/27/2010 Status post right hip replacement 10/01/2017 Venous insufficiency (chronic) (peripheral) 10/16/2014 Vertigo 06/14/2017 Vitamin B12 deficiency 05/26/2021 PAST SURGICAL HISTORY Procedure Laterality Date ARTHROSCOPY KNEE DIAGNOSTIC W/WO SYNOVIAL BX SPX 2001 Arthroscopy, knee right ARTHRP ACETBLR/PROX FEM PROSTC AGRFT/ALGRFT Right 06/23/2017 Hip replacement, total BREAST SURGERY HX COLONOSCOPY 07/24/2021 COLONOSCOPY AND POLYPECTOMY 06/16/2016 repeat 5 years COLONOSCOPY W/BIOPSY SINGLE/MULTIPLE 04/01/2009 EGD TRANSORAL BIOPSY SINGLE/MULTIPLE 06/22/2012 [facility] Dr Marroquin FRACTURE SURGERY JOINT REPLACEMENT HX LIG/TRNSXJ FLP TUBE ABDL/VAG APPR UNI/BI 1974 Tubal ligation PAST SURGICAL HISTORY OF 1984 ovarian cyst PAST SURGICAL HISTORY OF 2006 right breast removed bonnie. tumor PAST SURGICAL HISTORY OF 05/2008 bilateral eye lid surgery REM LESIO TRUNK,ARM,LEG 1.1 -2.0CM 12/22/2006 Exc. right lower back skin lesion SKIN BIOPSY HX TOTAL ABDOMINAL HYSTERECT W/WO RMVL TUBE OVARY 1987 Hysterectomy, EDWINA - ovaries remain VAGINAL HYSTERECTOMY ALLERGIES Flagyl [Metronidazole Hcl], Ibuprofen, and Nickel MEDICATIONS albuterol HFA (PROVENTIL HFA, VENTOLIN HFA) 90 mcg/actuation inhaler Inhale 2 Puffs as instructed every 6 hours as needed. ondansetron orally disintegrating (ZOFRAN ODT) 4 mg disintegrating tablet Take 1 tablet by mouth every 8 hours as needed. triamcinolone acetonide (KENALOG) 0.1 % cream Apply 1 application to affected area three times daily. Apply sparingly to area for rash/itching. fluticasone furoate (ARNUITY ELLIPTA) 100 mcg/actuation inhaler Inhale 1 Puff as instructed once daily. Do a quick inhalation prior to brushing teeth. Then brush teeth, rinse, gargle and spit. cyanocobalamin (VITAMIN B-12) 1,000 mcg tab Take 1 tablet by mouth once daily. solifenacin (VESICARE) 5 mg tablet Take 1 tablet by mouth once daily. buPROPion SR (WELLBUTRIN SR) 150 mg 12 hr tablet Take 1 tablet by mouth once daily. lisinopril-hydroCHLOROthiazide (ZESTORETIC) 20-12.5 mg per tablet Take 2 tablets by mouth once daily. omeprazole (PRILOSEC) 20 mg capsule Take 1 capsule by mouth once daily. verapamil SR (CALAN SR) 180 mg CR tablet Take 1.5 tablets by mouth once daily. sertraline (ZOLOFT) 100 mg tablet Take 1.5 tablets by mouth every evening. pravastatin (PRAVACHOL) 40 mg tablet Take 1 tablet by mouth daily at bedtime. MEDICAL SUPPLY BEDSIDE COMMODE. dx: right total hip replacement. z96.641 COMPOUNDED PRESCRIPTION Bedside Commode Dx: right total hip replacement Z96.641 FAMILY HISTORY Problem Relation Age of Onset Colon Cancer Mother Diabetes Mother rectal cancer/kidney failure Melanoma Father other (obese) Sister hypertension Colon Cancer Sister Breast Cancer Sister 55 triple negative Blood Disease Sister amyloidosis other (obese) Brother Coronary Artery Disease Brother 47 1st AMI (more content not included)... [facility] 11-16-2022 History of Presen t illness Narrative Subjective HPI HPI Dianne Holly is a 71 year old female who presents today for CC of cough, congestion. This started 1 week ago. Has tried otc medication for relief. Symptoms are worsened by nothing. Risk factors hx of copd, smoker. .Patient presents with: Cough: congestion and rib pain x over 1 week PAST MEDICAL HISTORY Diagnosis Date Adenoma of left adrenal gland 12/06/2018 Seen [facility] ER CT 11/28/2018 was stable in size since CT done 11/2015: benign. ADRENAL NODULE 11/17/2007 Anxiety state 11/19/2006 Arthritis Benign neoplasm of colon BPPV (benign paroxysmal positional vertigo) 04/03/2015 Chronic left shoulder pain 09/17/2015 Class 3 severe obesity due to excess calories without serious comorbidity with body mass index (BMI) of 45.0 to 49.9 in adult (HCC) 06/18/2014 Coronary artery calcification 09/08/[address] 08/2022 DDD (degenerative disc disease), lumbar 01/15/2016 Delayed emergence from general anesthesia Diverticulitis of large intestine without perforation or abscess without bleeding 06/03/2016 Emphysema of lung (HCC) 06/18/2014 Essential hypertension 11/19/2006 Family history of early CAD 09/08/2022 Brother at age 47 Gastroesophageal reflux disease without esophagitis 11/19/2006 Generalized osteoarthrosis, unspecified site 11/19/2006 Internal hemorrhoids Medicare annual wellness visit, initial 11/23/2017 Medicare Part B: 11/29/2016 last done: 11/16/2018 Mixed hyperlipidemia 03/19/2008 Moderate obstructive sleep apnea 08/03/2022 Consult sleep med 07/2022 Osteoarthritis of lumbar spine 01/15/2016 Osteoarthritis of multiple joints 11/19/2006 Overactive bladder 01/16/2019 Primary osteoarthritis of right hip 09/21/2016 Primary ovarian failure 11/23/2017 Recurrent major depressive disorder, in remission (HCC) 11/23/2017 Smoker 05/27/2010 Status post right hip replacement 10/01/2017 Venous insufficiency (chronic) (peripheral) 10/16/2014 Vertigo 06/14/2017 Vitamin B12 deficiency 05/26/2021 PAST SURGICAL HISTORY Procedure Laterality Date ARTHROSCOPY KNEE DIAGNOSTIC W/WO SYNOVIAL BX SPX 2001 Arthroscopy, knee right ARTHRP ACETBLR/PROX FEM PROSTC AGRFT/ALGRFT Right 06/23/2017 Hip replacement, total BREAST SURGERY HX COLONOSCOPY 07/24/2021 COLONOSCOPY & POLYPECTOMY 06/16/2016 repeat 5 years COLONOSCOPY W/BIOPSY SINGLE/MULTIPLE 04/01/2009 EGD TRANSORAL BIOPSY SINGLE/MULTIPLE 06/22/2012 [facility] Dr Marroquin FRACTURE SURGERY JOINT REPLACEMENT HX LIG/TRNSXJ FLP TUBE ABDL/VAG APPR UNI/BI 1973 Tubal ligation PAST SURGICAL HISTORY OF 1984 ovarian cyst PAST SURGICAL HISTORY OF 2006 right breast removed bonnie. tumor PAST SURGICAL HISTORY OF 05/2008 bilateral eye lid surgery REM LESIO TRUNK,ARM,LEG 1.1 -2.0CM 12/22/2006 Exc. right lower back skin lesion SKIN BIOPSY HX TOTAL ABDOMINAL HYSTERECT W/WO RMVL TUBE OVARY 1987 Hysterectomy, EDWINA - ovaries remain VAGINAL HYSTERECTOMY ALLERGIES Flagyl [Metronidazole Hcl], Ibuprofen, and Nickel MEDICATIONS albuterol HFA (PROVENTIL HFA, VENTOLIN HFA) 90 mcg/actuation inhaler Inhale 2 Puffs as instructed every 6 hours as needed. ondansetron orally disintegrating (ZOFRAN ODT) 4 mg disintegrating tablet Take 1 tablet by mouth every 8 hours as needed. triamcinolone acetonide (KENALOG) 0.1 % cream Apply 1 application to affected area three times daily. Apply sparingly to area for rash/itching. fluticasone furoate (ARNUITY ELLIPTA) 100 mcg/actuation inhaler Inhale 1 Puff as instructed once daily. Do a quick inhalation prior to brushing teeth. Then brush teeth, rinse, gargle and spit. cyanocobalamin (VITAMIN B-12) 1,000 mcg tab Take 1 tablet by mouth once daily. solifenacin (VESICARE) 5 mg tablet Take 1 tablet by mouth once daily. buPROPion SR (WELLBUTRIN SR) 150 mg 12 hr tablet Take 1 tablet by mouth once daily. lisinopril-hydroCHLOROthiazide (ZESTORETIC) 20-12.5 mg per tablet Take 2 tablets by mouth once daily. omeprazole (PRILOSEC) 20 mg capsule Take 1 capsule by mouth once daily. verapamil SR (CALAN SR) 180 mg CR tablet Take 1.5 tablets by mouth once daily. sertraline (ZOLOFT) 100 mg tablet Take 1.5 tablets by mouth every evening. pravastatin (PRAVACHOL) 40 mg tablet Take 1 tablet by mouth daily at bedtime. MEDICAL SUPPLY BEDSIDE COMMODE. dx: right total hip replacement. z96.641 COMPOUNDED PRESCRIPTION Bedside Commode Dx: right total hip replacement Z96.641 FAMILY HISTORY Problem Relation Age of Onset Colon Cancer Mother Diabetes Mother rectal cancer/kidney failure Melanoma Father other (obese) Sister hypertension Colon Cancer Sister Breast Cancer Sister 55 triple negative Blood Disease Sister amyloidosis other (obese) Brother Coronary Artery Disease Brother 47 1st AMI Heart Attack Brother other (Liver Issues) Daughter Alcohol/Drug Daughter Social History Tobacco Use Smoking status: Every Day Packs/day: 0.80 Years: 50.00 Additional pack years: 0.00 Total pack years: 40.00 Types: Cigarettes Start date: 03/01/1967 Smokeless tobacco: Never Tobacco comments: recently cut back to 03/02 ppd Vaping Use Vaping Use: Never used Substance Use Topics Alcohol use: Yes Comment: rare Drug use: No ROS Objective Blood pressure 128/70, pulse 96, temperature 37.4 C (99.3 F), resp. rate 18, weight 119.3 kg (263 lb), SpO2 95 %. Physical Exam Constitutional: General: She is not in acute distress. Appearance: She is not toxic-appearing or diaphoretic. HENT: Head: Normocephalic and atraumatic. Cardiovascular: Rate and Rhythm: Normal rate and regular rhythm. Heart sounds: Normal heart sounds, S1 normal and S2 normal. Pulmonary: Effort: Pulmonary effort is normal. Breath sounds: Wheezing (Scattered bilat) and rhonchi (scattered bilat) present. No decreased breath sounds or rales. Lymphadenopathy: Cervical: No cervical adenopathy. Right cervical: No superficial cervical adenopathy. Left cervical: No superficial cervical adenopathy. Neurological: Mental Status: She is alert and oriented to person, place, and time. Gait: Gait is intact. ASSESSMENT/PLAN: 1. COPD (chronic obstructive pulmonary disease) with acute bronchitis (HCC) - ICD9: 491.22, ICD10: J44.0, J20.9 (primary diagnosis) - Discussed supportive care - Limit exposure to smoke and other inhaled irritants - Discussed possible red flags and when to seek medical attention - Follow up in 3-5 days or sooner if no better or worse -If you experience chest pain/shortness of breath go to ER - PREDNISONE 20 MG TABLET - DOXYCYCLINE MONOHYDRATE 100 MG TABLET 2. Rhonchi - ICD9: 786.7, ICD10: R09.89 - XR CHEST 2V FRONTAL/LAT IMPRESSION: No acute radiographic abnormality. Dictated by : TIFFANY LOJA MD - XR RIBS 2V AP/OBL RIGHT IMPRESSION: No acute radiographic abnormality. Dictated by : TIFFANY LOJA MD 3. URI, acute - ICD9: 465.9, ICD10: J06.9 - Symptomatic treatment with prn analgesia - Supportive care with fluids and rest - COVID NAAT, UPPER RESPIRATORY, ROUTINE Keke Bae APRN.SHEET HEATER documented in this encounter [facility] 11-04-2022 Note HNO ID: [id number] Author: Allie Lemus APRN.STEPHANI Service: ? Author Type: Nurse Practitioner Type: Progress Notes Filed: 11/04/2022 12:18 PM Note Text: Dianne Holly is a 71 year old female here for a Medicare wellness visit. Health Risk Assessment In general, health is: Good Concerns with balance:Not at all Concerns with teeth or dentures:Several days [place] anxious, stressed, angry, irritable, lonely, isolated, or had thoughts of hurting themself: Not at all Has little interest or pleasure in doing things: More than half the days Bothered by feeling down, depressed, or hopeless: More than half the days Needs help with grocery shopping, cooking, housework, bathing, grooming, dressing, eating, sitting or standing, walking, using the toilet, handling finances, taking medications, using the telephone, or driving: No Following safety precautions in the home environment and vehicle: removed throw rugs from floors, installed grab bars in the bathroom, handrails in stairwells, having adequate lighting, wearing seatbelt at all times?: Yes Smokes cigarettes, vapes, or chew tobacco: Yes, and I might quit Eats healthy foods including fruits, vegetables, whole grains, and fiber-rich foods: Several days Number of days per week engages in exercise: 0 days Average alcohol consumption: Never Current Providers Specialists: I have reviewed specialist-related care of the patient in the medical record. Medical/Family history review Reviewed and updated problem list, medical/surgical/family/social history, medications, and allergies. Opioid use review Patient is not currently using opioids. Depression screening Depression Screening PHQ-2 Score PHQ-9 Score NELI-2 Total Score 06/15/2022 4 9 - Depression screening tool completed and reviewed. Based on score and interview, patient is already diagnosed with depression. Screening tool discussed with patient, and I recommended continuing current plan of care. Cognitive screening Mini Cog Score: Score: 5 Functional Observation Was the patient's timed Up AND Go test unsteady or ? 12 seconds? Yes Advance Care Planning End of Life planning discussed, including patient's advanced directive wishes: Yes Measurements BP 128/72 Pulse 88 Resp 20 Wt 265 lb (120.2kg) SpO2 93% Visual acuity (required for Welcome to Medicare): follows with optometry/ophthalmology Hearing Evaluation: within normal limits Assessment/Plan Medicare annual wellness visit, subsequent (Z00.00) - Counseled on healthy diet and regular exercise - Discussed need for and benefit of weight loss. BMI 47.73 kg/(m2) - Smoking cessation counseling - Fall avoidance - Lipid panel - Diabetes screening - Depression screening Chief Complaint Patient presents with: Medicare Wellness Exam HPI Dianne Holly is a 71 year old female who presents here today for Above Complaints.. Patient presents for her annual physical. Patient reports she is doing well and feels like her chronic conditions are currently well managed. Patient reports depression has been better since increasing zoloft. Past medical history, appointments, medications, allergies reviewed. Previous Medical History PAST MEDICAL HISTORY Diagnosis Date Adenoma of left adrenal gland 12/06/2018 Seen [facility] ER CT 11/28/2018 was stable in size since CT done 11/2015: benign. ADRENAL NODULE 11/17/2007 Anxiety state 11/19/2006 Arthritis Benign neoplasm of colon BPPV (benign paroxysmal positional vertigo) 04/03/2015 Chronic left shoulder pain 09/17/2015 Class 3 severe obesity due to excess calories without serious comorbidity with body mass index (BMI) of 45.0 to 49.9 in adult ([facility]) 06/18/2014 Coronary artery calcification 09/08/[address] 08/2022 DDD (degenerative disc disease), lumbar 01/15/2016 Delayed emergence from general anesthesia Diverticulitis of large intestine without perforation or abscess without bleeding 06/03/2016 Emphysema of lung ([facility]) 06/18/2014 Essential hypertension 11/19/2006 Family history of early CAD 09/08/2022 Brother at age 47 Gastroesophageal reflux disease without esophagitis 11/19/2006 Generalized osteoarthrosis, unspecified site 11/19/2006 Internal hemorrhoids Medicare annual wellness visit, initial 11/23/2017 Medicare Part B: 11/29/2016 last done: 11/16/2018 Mixed hyperlipidemia 03/19/2008 Moderate obstructive sleep apnea 08/03/2022 Consult sleep med 07/2022 Osteoarthritis of lumbar spine 01/15/2016 Osteoarthritis of multiple joints 11/19/2006 Overactive bladder 01/16/2019 Primary osteoarthritis of right hip 09/21/2016 Primary ovarian failure 11/23/2017 Recurrent major depressive disorder, in remission (HCC) 11/23/2017 Smoker 05/27/2010 Status post right hip replacement 10/01/2017 Venous insufficiency (chronic) (peripheral) 10/16/2014 Vertigo 06/14/2017 Vitamin B12 deficiency 05/26/2021 Previous Surgical History (more content not included)... [facility] 10-29-2022 Miscellaneous Notes Pt was notified of message & transferred to farm machinery engine mechanic to change appt. Paris Silva LPN Left message for pt to call back and speak with Triage Nurse. Pt needs [facility] with Pattie Ruby. Padmini had advised schedulers this appointment needs to be with Dr De La Vega or Wanda Pa. Please help pt get this scheduled correctly. Thank you! Kina Villegas LPN documented in this encounter [facility] 10-28-2022 Note HNO ID: [id number] Author: Padmini Solorzano PA-C Service: ? Author Type: Physician Block Breaker Type: Progress Notes Filed: 10/28/2022 2:48 PM Note Text: Chief Complaint Patient presents with: Suture Removal: Left lower arm HPI Dianne Holly is a 71 year old female who presents here today for Above Complaints.. Patient was trying to remove a jordyn from her dog's mouth when the dog bit her right arm. Went to ER. Had 11 sutures placed Patient questioning her weight and options for weight loss. Past medical history, appointments, medications, allergies reviewed. Previous Medical History PAST MEDICAL HISTORY Diagnosis Date Adenoma of left adrenal gland 12/06/2018 Seen [facility] ER CT 11/28/2018 was stable in size since CT done 11/2015: benign. ADRENAL NODULE 11/17/2007 Anxiety state 11/19/2006 Arthritis Benign neoplasm of colon BPPV (benign paroxysmal positional vertigo) 04/03/2015 Chronic left shoulder pain 09/17/2015 Class 3 severe obesity due to excess calories without serious comorbidity with body mass index (BMI) of 45.0 to 49.9 in adult (HCC) 06/18/2014 Coronary artery calcification 09/08/[address] 08/2022 DDD (degenerative disc disease), lumbar 01/15/2016 Delayed emergence from general anesthesia Diverticulitis of large intestine without perforation or abscess without bleeding 06/03/2016 Emphysema of lung (HCC) 06/18/2014 Essential hypertension 11/19/2006 Family history of early CAD 09/08/2022 Brother at age 47 Gastroesophageal reflux disease without esophagitis 11/19/2006 Generalized osteoarthrosis, unspecified site 11/19/2006 Internal hemorrhoids Medicare annual wellness visit, initial 11/23/2017 Medicare Part B: 11/29/2016 last done: 11/16/2018 Mixed hyperlipidemia 03/19/2008 Moderate obstructive sleep apnea 08/03/2022 Consult sleep med 07/2022 Osteoarthritis of lumbar spine 01/15/2016 Osteoarthritis of multiple joints 11/19/2006 Overactive bladder 01/16/2019 Primary osteoarthritis of right hip 09/21/2016 Primary ovarian failure 11/23/2017 Recurrent major depressive disorder, in remission (HCC) 11/23/2017 Smoker 05/27/2010 Status post right hip replacement 10/01/2017 Venous insufficiency (chronic) (peripheral) 10/16/2014 Vertigo 06/14/2017 Vitamin B12 deficiency 05/26/2021 Previous Surgical History PAST SURGICAL HISTORY Procedure Laterality Date ARTHROSCOPY KNEE DIAGNOSTIC W/WO SYNOVIAL BX SPX 2001 Arthroscopy, knee right ARTHRP ACETBLR/PROX FEM PROSTC AGRFT/ALGRFT Right 06/23/2017 Hip replacement, total BREAST SURGERY HX COLONOSCOPY 07/24/2021 COLONOSCOPY AND POLYPECTOMY 06/16/2016 repeat 5 years COLONOSCOPY W/BIOPSY SINGLE/MULTIPLE 04/01/2009 EGD TRANSORAL BIOPSY SINGLE/MULTIPLE 06/22/2012 [facility] Dr Marroquin FRACTURE SURGERY JOINT REPLACEMENT HX LIG/TRNSXJ FLP TUBE ABDL/VAG APPR UNI/BI 1973 Tubal ligation PAST SURGICAL HISTORY OF 1984 ovarian cyst PAST SURGICAL HISTORY OF 2006 right breast removed bonnie. tumor PAST SURGICAL HISTORY OF 05/2008 bilateral eye lid surgery REM LESIO TRUNK,ARM,LEG 1.1 -2.0CM 12/22/2006 Exc. right lower back skin lesion SKIN BIOPSY HX TOTAL ABDOMINAL HYSTERECT W/WO RMVL TUBE OVARY 1987 Hysterectomy, EDWINA - ovaries remain VAGINAL HYSTERECTOMY Family History FAMILY HISTORY Problem Relation Age of Onset Colon Cancer Mother Diabetes Mother rectal cancer/kidney failure Melanoma Father other (obese) Sister hypertension Colon Cancer Sister Breast Cancer Sister 55 triple negative Blood Disease Sister amyloidosis other (obese) Brother Coronary Artery Disease Brother 47 1st AMI Heart Attack Brother other (Liver Issues) Daughter Alcohol/Drug Daughter Patient Allergies ALLERGIES Allergen Reactions Flagyl [Metronidazo* Itching, Other: See Comments nausea/ throat swelling Ibuprofen Vomiting Hematemesis - [facility] 06/21/2012 Nickel Rash Can only wear gold earrings Current Medications Current Outpatient Medications on File Prior to Visit Medication Sig ondansetron orally disintegrating (ZOFRAN ODT) 4 mg disintegrating tablet Take 1 tablet by mouth every 8 hours as needed. triamcinolone acetonide (KENALOG) 0.1 % cream Apply 1 application to affected area three times daily. Apply sparingly to area for rash/itching. fluticasone furoate (ARNUITY ELLIPTA) 100 mcg/actuation inhaler Inhale 1 Puff as instructed once daily. Do a quick inhalation prior to brushing teeth. Then brush teeth, rinse, gargle and spit. cyanocobalamin (VITAMIN B-12) 1,000 mcg tab Take 1 tablet by mouth once daily. solifenacin (VESICARE) 5 mg tablet Take 1 tablet by mouth once daily. buPROPion SR (WELLBUTRIN SR) 150 mg 12 hr tablet Take 1 tablet by mouth once daily. lisinopril-hydroCHLOROthiazide (ZESTORETIC) 20-12.5 mg per tablet Take 2 tablets by mouth once daily. omeprazole (PRILOSEC) 20 mg capsule Take 1 capsule by mouth once daily. verapamil SR (CA (more content not included)... [facility] 10-28-2022 History of Presen t illness Narrative Chief Complaint Patient presents with: Suture Removal: Left lower arm HPI Dianne Holly is a 71 year old female who presents here today for Above Complaints.. Patient was trying to remove a jordyn from her dog's mouth when the dog bit her right arm. Went to ER. Had 11 sutures placed Patient questioning her weight and options for weight loss. Past medical history, appointments, medications, allergies reviewed. Previous Medical History PAST MEDICAL HISTORY Diagnosis Date Adenoma of left adrenal gland 12/06/2018 Seen [facility] ER CT 11/28/2018 was stable in size since CT done 11/2015: benign. ADRENAL NODULE 11/17/2007 Anxiety state 11/19/2006 Arthritis Benign neoplasm of colon BPPV (benign paroxysmal positional vertigo) 04/03/2015 Chronic left shoulder pain 09/17/2015 Class 3 severe obesity due to excess calories without serious comorbidity with body mass index (BMI) of 45.0 to 49.9 in adult ([facility]) 06/18/2014 Coronary artery calcification 09/08/[address] 08/2022 DDD (degenerative disc disease), lumbar 01/15/2016 Delayed emergence from general anesthesia Diverticulitis of large intestine without perforation or abscess without bleeding 06/03/2016 Emphysema of lung ([facility]) 06/18/2014 Essential hypertension 11/19/2006 Family history of early CAD 09/08/2022 Brother at age 47 Gastroesophageal reflux disease without esophagitis 11/19/2006 Generalized osteoarthrosis, unspecified site 11/19/2006 Internal hemorrhoids Medicare annual wellness visit, initial 11/23/2017 Medicare Part B: 11/29/2016 last done: 11/16/2018 Mixed hyperlipidemia 03/19/2008 Moderate obstructive sleep apnea 08/03/2022 Consult sleep med 07/2022 Osteoarthritis of lumbar spine 01/15/2016 Osteoarthritis of multiple joints 11/19/2006 Overactive bladder 01/16/2019 Primary osteoarthritis of right hip 09/21/2016 Primary ovarian failure 11/23/2017 Recurrent major depressive disorder, in remission (HCC) 11/23/2017 Smoker 05/27/2010 Status post right hip replacement 10/01/2017 Venous insufficiency (chronic) (peripheral) 10/16/2014 Vertigo 06/14/2017 Vitamin B12 deficiency 05/26/2021 Previous Surgical History PAST SURGICAL HISTORY Procedure Laterality Date ARTHROSCOPY KNEE DIAGNOSTIC W/WO SYNOVIAL BX SPX 2001 Arthroscopy, knee right ARTHRP ACETBLR/PROX FEM PROSTC AGRFT/ALGRFT Right 06/23/2017 Hip replacement, total BREAST SURGERY HX COLONOSCOPY 07/24/2021 COLONOSCOPY & POLYPECTOMY 06/16/2016 repeat 5 years COLONOSCOPY W/BIOPSY SINGLE/MULTIPLE 04/01/2009 EGD TRANSORAL BIOPSY SINGLE/MULTIPLE 06/22/2012 [facility] Dr Marroquin FRACTURE SURGERY JOINT REPLACEMENT HX LIG/TRNSXJ FLP TUBE ABDL/VAG APPR UNI/BI 1974 Tubal ligation PAST SURGICAL HISTORY OF 1984 ovarian cyst PAST SURGICAL HISTORY OF 2006 right breast removed bonnie. tumor PAST SURGICAL HISTORY OF 05/2008 bilateral eye lid surgery REM LESIO TRUNK,ARM,LEG 1.1 -2.0CM 12/22/2006 Exc. right lower back skin lesion SKIN BIOPSY HX TOTAL ABDOMINAL HYSTERECT W/WO RMVL TUBE OVARY 1987 Hysterectomy, EDWINA - ovaries remain VAGINAL HYSTERECTOMY Family History FAMILY HISTORY Problem Relation Age of Onset Colon Cancer Mother Diabetes Mother rectal cancer/kidney failure Melanoma Father other (obese) Sister hypertension Colon Cancer Sister Breast Cancer Sister 55 triple negative Blood Disease Sister amyloidosis other (obese) Brother Coronary Artery Disease Brother 47 1st AMI Heart Attack Brother other (Liver Issues) Daughter Alcohol/Drug Daughter Patient Allergies ALLERGIES Allergen Reactions Flagyl [Metronidazo* Itching, Other: See Comments nausea/ throat swelling Ibuprofen Vomiting Hematemesis - [facility] 06/21/2012 Nickel Rash Can only wear gold earrings Current Medications Current Outpatient Medications on File Prior to Visit Medication Sig ondansetron orally disintegrating (ZOFRAN ODT) 4 mg disintegrating tablet Take 1 tablet by mouth every 8 hours as needed. triamcinolone acetonide (KENALOG) 0.1 % cream Apply 1 application to affected area three times daily. Apply sparingly to area for rash/itching. fluticasone furoate (ARNUITY ELLIPTA) 100 mcg/actuation inhaler Inhale 1 Puff as instructed once daily. Do a quick inhalation prior to brushing teeth. Then brush teeth, rinse, gargle and spit. cyanocobalamin (VITAMIN B-12) 1,000 mcg tab Take 1 tablet by mouth once daily. solifenacin (VESICARE) 5 mg tablet Take 1 tablet by mouth once daily. buPROPion SR (WELLBUTRIN SR) 150 mg 12 hr tablet Take 1 tablet by mouth once daily. lisinopril-hydroCHLOROthiazide (ZESTORETIC) 20-12.5 mg per tablet Take 2 tablets by mouth once daily. omeprazole (PRILOSEC) 20 mg capsule Take 1 capsule by mouth once daily. verapamil SR (CALAN SR) 180 mg CR tablet Take 1.5 tablets by mouth once daily. sertraline (ZOLOFT) 100 mg tablet Take 1.5 tablets by mouth every evening. pravastatin (PRAVACHOL) 40 mg tablet Take 1 tablet by mouth daily at bedtime. albuterol HFA (PROVENTIL HFA, VENTOLIN HFA) 90 mcg/actuation inhaler Inhale 2 Puffs as instructed every 6 hours as needed. amoxicillin-clavulanic acid (AUGMENTIN) 875-125 mg per tablet Take 1 tablet by mouth twice daily. Take 1 tablet every 12 hours (Patient not taking: Reported on 10/28/2022) HYDROcodone-acetaminophen (NORCO) 5-325 mg per tablet Take 1 tablet by mouth four times daily as needed for pain. Take one tablet every 4 hours as needed for pain (Patient not taking: Reported on 09/08/2022) peg 3350-Electrolytes (GOLYTELY) 236-22.74-6.74 -5.86 gram suspension Refer to printed prep instructions from your provider. (Patient not taking: Reported on 12/08/2021) MEDICAL SUPPLY BEDSIDE COMMODE. dx: right total hip replacement. z96.641 COMPOUNDED PRESCRIPTION Bedside Commode Dx: right total hip replacement Z96.641 No current facility-administered medications on file prior to visit. Social History Social History Tobacco Use Smoking status: Every Day Packs/day: 0.80 Years: 50.00 Additional pack years: 0.00 Total pack years: 40.00 Types: Cigarettes Start date: 03/01/1967 Smokeless tobacco: Never Tobacco comments: recently cut back to 03/02 ppd Vaping Use Vaping Use: Never used Substance Use Topics Alcohol use: Yes Comment: rare Drug use: No Review of Symptoms REVIEW OF SYSTEMS See hpi EXAM: BP 124/78 (BP Site: Right Arm, BP Position: Sitting, BP Cuff Size: Large Adult) Pulse 72 Temp 36.1 C (97 F) Resp 18 Wt 118.8 kg (262 lb) BMI 47.19 kg/m General Appearance: Well appearing, alert, in no acute distress, well-hydrated, well nourished. and Morbidly obese. Skin: scabbing noted along laceration. No erythema, pus or swelling evident.. Health Maintenance List SHINGRIX VACCINE(1 of 2) Never done BP CONTROLLED (<130/80) due on 08/13/2021 MAMMOGRAM due on 02/11/2022 ALPHA-1 ANTITRYPSIN DEFICIENCY SCREENING due on 12/08/2022 COVID-19 VACCINE(3 - Pfizer series) due on 06/16/2023 INFLUENZA(1) due on 10/30/2022 LDL CHOLESTEROL due on 06/17/2023 LUNG CANCER SCREENING due on 08/21/2023 ANNUAL PCP TEAM CHRONIC DISEASE VISIT due on 09/09/2023 COLORECTAL CANCER SCREENING due on 07/24/2024 DIABETES SCREEN due on 06/16/2025 LIPID SCREEN due on 06/17/2027 DTAP,TDAP,TD(3 - Td or Tdap) due on 07/04/2032 BONE DENSITY Completed SPIROMETRY Completed ADVANCE DIRECTIVE DISCUSSION Completed HEPATITIS C SCREENING Completed PNEUMOCOCCAL: 65+ Completed Data reviewed ASSESSMENT/PLAN: 1. Dog bite, initial encounter - ICD9: 879.8, E906.0, ICD10: W54.0XXA (primary diagnosis) Patient to continue to monitor for s/s of infection 2. Visit for suture removal - ICD9: V58.32, ICD10: Z48.02 11 sutures removed without incident. 3. Obesity, Class III, BMI 40-49.9 (morbid obesity) (HCC) - ICD9: 278.01, ICD10: E66.01 Will set up with obesity med. - CONSULT TO WEIGHT MANAGEMENT NAVIGATION - CONSULT TO GYNECOLOGY Padmini Solorzano PA-C documented in this encounter [facility] 10-22-2022 Note HNO ID: [id number] Author: Sarita Roberson MA Service: ? Author Type: Dowel Machine Operator Type: Progress Notes Filed: 10/22/2022 8:15 AM Note Text: Scan on 10/17/2022 9:07 PM by Yeni Segundo PA-C: Consultation - Emergency Medicine Sarita Roberson MA [facility] 10-22-2022 Miscellaneous Notes Patient notified and voiced and voiced understanding. Patient was seen in Er for dog bite. Needs suture removal. Documents scanned. Also scheduled patient's physical. Sarita Roberson MA Let patient know stress test was ok. Scan on 10/20/2022 1:14 PM by ProviderYeni PA-C: Stress Test Please review results. Sarita Roberson MA documented in this encounter [facility] 10-22-2022 History of Presen t illness Narrative Scan on 10/17/2022 9:07 PM by Yeni Segundo PA-C: Consultation - Emergency Medicine Sarita Roberson MA documented in this encounter [facility] 09-08-2022 Note HNO ID: [id number] Author: Dewayne Chung MD Service: ? Author Type: Physician Type: Progress Notes Filed: 09/08/2022 12:37 PM Note Text: Chief Complaint No chief complaint on file. PACO Holly is a 71 year old female who presents here today for discussion on CT results. Office visit- discussion Ct results Patient recently had a low dose lung CT that did showed moderate coronary calcifications. Patient saw sleep med on 08/07/2022 and was ordered to undergo CPAP titration study. Patient did complete PAP titration study on 08/20/2022 and a copy of the results is in the chart but not sure if Dr. Bell is aware yet. Patient has occasional shortness of breath at times and reduced stamina. No chest pain or chest heaviness. Office visit: medicare wellness 08/2022 Sleep issues Cough Sore on inside of lip Losing weight Sister had in November after being diagnosed with stage 4 breast cancer 10.5 years earlier. Her dog back in March after having him 11 years. Daughter is a alcoholic. Patient has been having sleep issues. Feels this is related to the loss of her sister then the Dog and her youngest daughter has come back to the area and is a alcoholic. Has difficulty falling asleep and staying asleep. Has chronic daytime somnolence and will fall asleep multiple times through out the day. She does snore. Patient has continued to have a cough since having suspected COVID back in 2020. Did not do a COVID test at the time. Does have a Hx of emphysema and continues to smoke. Wants to loose weight and feels her weight plays a role in a lot of her health problems., Patient noticed a blue discoloration on the left lower lip. Thinks it developed after biting her lip about 6 months ago. Also feels a lump down in the bottom of her mouth. Past medical history, appointments, medications, allergies reviewed. Previous Medical History PAST MEDICAL HISTORY Diagnosis Date Adenoma of left adrenal gland 12/06/2018 Seen [facility] ER CT 11/28/2018 was stable in size since CT done 11/2015: benign. ADRENAL NODULE 11/17/2007 Anxiety state 11/19/2006 Arthritis Benign neoplasm of colon BPPV (benign paroxysmal positional vertigo) 04/03/2015 Chronic left shoulder pain 09/17/2015 Class 3 severe obesity due to excess calories without serious comorbidity with body mass index (BMI) of 45.0 to 49.9 in adult ([facility]) 06/18/2014 DDD (degenerative disc disease), lumbar 01/15/2016 Delayed emergence from general anesthesia Diverticulitis of large intestine without perforation or abscess without bleeding 06/03/2016 Emphysema of lung ([facility]) 06/18/2014 Essential hypertension 11/19/2006 Gastroesophageal reflux disease without esophagitis 11/19/2006 Generalized osteoarthrosis, unspecified site 11/19/2006 Internal hemorrhoids Medicare annual wellness visit, initial 11/23/2017 Medicare Part B: 11/29/2016 last done: 11/16/2018 Mixed hyperlipidemia 03/19/2008 Moderate obstructive sleep apnea 08/03/2022 Consult sleep med 07/2022 Osteoarthritis of lumbar spine 01/15/2016 Osteoarthritis of multiple joints 11/19/2006 Overactive bladder 01/16/2019 Primary osteoarthritis of right hip 09/21/2016 Primary ovarian failure 11/23/2017 Recurrent major depressive disorder, in remission ([facility]) 11/23/2017 Smoker 05/27/2010 Status post right hip replacement 10/01/2017 Venous insufficiency (chronic) (peripheral) 10/16/2014 Vertigo 06/14/2017 Vitamin B12 deficiency 05/26/2021 Previous Surgical History PAST SURGICAL HISTORY Procedure Laterality Date ARTHROSCOPY KNEE DIAGNOSTIC W/WO SYNOVIAL BX SPX 2001 Arthroscopy, knee right ARTHRP ACETBLR/PROX FEM PROSTC AGRFT/ALGRFT Right 06/23/2017 Hip replacement, total BREAST SURGERY HX COLONOSCOPY 07/24/2021 COLONOSCOPY AND POLYPECTOMY 06/16/2016 repeat 5 years COLONOSCOPY W/BIOPSY SINGLE/MULTIPLE 04/01/2009 EGD TRANSORAL BIOPSY SINGLE/MULTIPLE 06/22/2012 [facility] Dr Marroquin FRACTURE SURGERY JOINT REPLACEMENT HX LIG/TRNSXJ FLP TUBE ABDL/VAG APPR UNI/BI 1974 Tubal ligation PAST SURGICAL HISTORY OF 1984 ovarian cyst PAST SURGICAL HISTORY OF 2006 right breast removed bonnie. tumor PAST SURGICAL HISTORY OF 05/2008 bilateral eye lid surgery REM LESIO TRUNK,ARM,LEG 1.1 -2.0CM 12/22/2006 Exc. right lower back skin lesion SKIN BIOPSY HX TOTAL ABDOMINAL HYSTERECT W/WO RMVL TUBE OVARY 1988 Hysterectomy, EDWINA - ovaries remain VAGINAL HYSTERECTOMY Family History FAMILY HISTORY Problem Relation Age of Onset Colon Cancer Mother Diabetes Mother rectal cancer/kidney failure Melanoma Father other (obese) Sister hypertension Colon Cancer Sister Breast Cancer Sister 55 triple negative Blood Disease Sister amyloidosis other (obese) Brother Coronary Artery Disease Brother 47 1st AMI Heart Attack Brother other (Liver Issues) Daughter Alcohol/Drug Daughter Patient Allergies ALLERGIES Allerg (more content not included)... [facility] 09-08-2022 History of Presen t illness Narrative Chief Complaint No chief complaint on file. HPI Dianne Holly is a 71 year old female who presents here today for discussion on CT results. Office visit- discussion Ct results Patient recently had a low dose lung CT that did showed moderate coronary calcifications. Patient saw sleep med on 08/07/2022 and was ordered to undergo CPAP titration study. Patient did complete PAP titration study on 08/20/2022 and a copy of the results is in the chart but not sure if Dr. Bell is aware yet. Patient has occasional shortness of breath at times and reduced stamina. No chest pain or chest heaviness. Office visit: medicare wellness 08/2022 Sleep issues Cough Sore on inside of lip Losing weight Sister had in November after being diagnosed with stage 4 breast cancer 10.5 years earlier. Her dog back in March after having him 11 years. Daughter is a alcoholic. Patient has been having sleep issues. Feels this is related to the loss of her sister then the Dog and her youngest daughter has come back to the area and is a alcoholic. Has difficulty falling asleep and staying asleep. Has chronic daytime somnolence and will fall asleep multiple times through out the day. She does snore. Patient has continued to have a cough since having suspected COVID back in 2020. Did not do a COVID test at the time. Does have a Hx of emphysema and continues to smoke. Wants to loose weight and feels her weight plays a role in a lot of her health problems., Patient noticed a blue discoloration on the left lower lip. Thinks it developed after biting her lip about 6 months ago. Also feels a lump down in the bottom of her mouth. Past medical history, appointments, medications, allergies reviewed. Previous Medical History PAST MEDICAL HISTORY Diagnosis Date Adenoma of left adrenal gland 12/06/2018 Seen [facility] ER CT 11/28/2018 was stable in size since CT done 11/2015: benign. ADRENAL NODULE 11/17/2007 Anxiety state 11/19/2006 Arthritis Benign neoplasm of colon BPPV (benign paroxysmal positional vertigo) 04/03/2015 Chronic left shoulder pain 09/17/2015 Class 3 severe obesity due to excess calories without serious comorbidity with body mass index (BMI) of 45.0 to 49.9 in adult ([facility] [facility]) 06/18/2014 DDD (degenerative disc disease), lumbar 01/15/2016 Delayed emergence from general anesthesia Diverticulitis of large intestine without perforation or abscess without bleeding 06/03/2016 Emphysema of lung ([facility]) 06/18/2014 Essential hypertension 11/19/2006 Gastroesophageal reflux disease without esophagitis 11/19/2006 Generalized osteoarthrosis, unspecified site 11/19/2006 Internal hemorrhoids Medicare annual wellness visit, initial 11/23/2017 Medicare Part B: 11/29/2016 last done: 11/16/2018 Mixed hyperlipidemia 03/19/2008 Moderate obstructive sleep apnea 08/03/2022 Consult sleep med 07/2022 Osteoarthritis of lumbar spine 01/15/2016 Osteoarthritis of multiple joints 11/19/2006 Overactive bladder 01/16/2019 Primary osteoarthritis of right hip 09/21/2016 Primary ovarian failure 11/23/2017 Recurrent major depressive disorder, in remission ([facility]) 11/23/2017 Smoker 05/27/2010 Status post right hip replacement 10/01/2017 Venous insufficiency (chronic) (peripheral) 10/16/2014 Vertigo 06/14/2017 Vitamin B12 deficiency 05/26/2021 Previous Surgical History PAST SURGICAL HISTORY Procedure Laterality Date ARTHROSCOPY KNEE DIAGNOSTIC W/WO SYNOVIAL BX SPX 2001 Arthroscopy, knee right ARTHRP ACETBLR/PROX FEM PROSTC AGRFT/ALGRFT Right 06/23/2017 Hip replacement, total BREAST SURGERY HX COLONOSCOPY 07/24/2021 COLONOSCOPY & POLYPECTOMY 06/16/2016 repeat 5 years COLONOSCOPY W/BIOPSY SINGLE/MULTIPLE 04/01/2009 EGD TRANSORAL BIOPSY SINGLE/MULTIPLE 06/22/2012 [facility] Dr Marroquin FRACTURE SURGERY JOINT REPLACEMENT HX LIG/TRNSXJ FLP TUBE ABDL/VAG APPR UNI/BI 1974 Tubal ligation PAST SURGICAL HISTORY OF 1985 ovarian cyst PAST SURGICAL HISTORY OF 2006 right breast removed bonnie. tumor PAST SURGICAL HISTORY OF 05/2008 bilateral eye lid surgery REM LESIO TRUNK,ARM,LEG 1.1 -2.0CM 12/22/2006 Exc. right lower back skin lesion SKIN BIOPSY HX TOTAL ABDOMINAL HYSTERECT W/WO RMVL TUBE OVARY 1987 Hysterectomy, EDWINA - ovaries remain VAGINAL HYSTERECTOMY Family History FAMILY HISTORY Problem Relation Age of Onset Colon Cancer Mother Diabetes Mother rectal cancer/kidney failure Melanoma Father other (obese) Sister hypertension Colon Cancer Sister Breast Cancer Sister 55 triple negative Blood Disease Sister amyloidosis other (obese) Brother Coronary Artery Disease Brother 47 1st AMI Heart Attack Brother other (Liver Issues) Daughter Alcohol/Drug Daughter Patient Allergies ALLERGIES Allergen Reactions Flagyl [Metronidazo* Itching, Other: See Comments nausea/ throat swelling Ibuprofen Vomiting Hematemesis - [facility] 06/21/2012 Nickel Rash Can only wear gold earrings Current Medications Current Outpatient Medications on File Prior to Visit Medication Sig amoxicillin-clavulanic acid (AUGMENTIN) 875-125 mg per tablet Take 1 tablet by mouth twice daily. Take 1 tablet every 12 hours HYDROcodone-acetaminophen (NORCO) 5-325 mg per tablet Take 1 tablet by mouth four times daily as needed for pain. Take one tablet every 4 hours as needed for pain fluticasone furoate (ARNUITY ELLIPTA) 100 mcg/actuation inhaler Inhale 1 Puff as instructed once daily. Do a quick inhalation prior to brushing teeth. Then brush teeth, rinse, gargle and spit. cyanocobalamin (VITAMIN B-12) 1,000 mcg tab Take 1 tablet by mouth once daily. solifenacin (VESICARE) 5 mg tablet Take 1 tablet by mouth once daily. buPROPion SR (WELLBUTRIN SR) 150 mg 12 hr tablet Take 1 tablet by mouth once daily. lisinopril-hydroCHLOROthiazide (ZESTORETIC) 20-12.5 mg per tablet Take 2 tablets by mouth once daily. omeprazole (PRILOSEC) 20 mg capsule Take 1 capsule by mouth once daily. verapamil SR (CALAN SR) 180 mg CR tablet Take 1.5 tablets by mouth once daily. sertraline (ZOLOFT) 100 mg tablet Take 1.5 tablets by mouth every evening. pravastatin (PRAVACHOL) 40 mg tablet Take 1 tablet by mouth daily at bedtime. ondansetron orally disintegrating (ZOFRAN ODT) 4 mg disintegrating tablet Take 1 tablet by mouth every 8 hours as needed. albuterol HFA (PROVENTIL HFA, VENTOLIN HFA) 90 mcg/actuation inhaler Inhale 2 Puffs as instructed every 6 hours as needed. peg 3350-Electrolytes (GOLYTELY) 236-22.74-6.74 -5.86 gram suspension Refer to printed prep instructions from your provider. (Patient not taking: Reported on 12/08/2021) triamcinolone acetonide (KENALOG) 0.1 % cream Apply 1 application to affected area three times daily. Apply sparingly to area for rash/itching. MEDICAL SUPPLY BEDSIDE COMMODE. dx: right total hip replacement. z96.641 COMPOUNDED PRESCRIPTION Bedside Commode Dx: right total hip replacement Z96.641 No current facility-administered medications on file prior to visit. Social History Social History Tobacco Use Smoking status: Every Day Packs/day: 0.80 Years: 50.00 Total pack years: 40.00 Types: Cigarettes Start date: 03/01/1967 Smokeless tobacco: Never Tobacco comments: recently cut back to 03/02 ppd Vaping Use Vaping Use: Never used Substance Use Topics Alcohol use: Yes Comment: rare Drug use: No Review of Symptoms REVIEW OF SYSTEMS EXAM: BP 128/86 (BP Site: Right Arm, BP Position: Sitting, BP Cuff Size: Large Adult) Pulse 76 Resp 18 Wt 119.7 kg (264 lb) BMI 47.55 kg/m General Appearance: Well appearing, alert, in no acute distress, well-hydrated, well nourished.. Lungs: Lungs clear to auscultation. No wheezing, rhonchi, rales.. Heart: RRR without murmur, gallop, or rubs. No ectopy. Health Maintenance List SHINGRIX VACCINE(1 of 2) Never done DTAP,TDAP,TD(2 - Td or Tdap) due on 05/14/2020 BP CONTROLLED (<130/80) due on 08/13/2021 MAMMOGRAM due on 02/11/2022 ALPHA-1 ANTITRYPSIN DEFICIENCY SCREENING due on 12/08/2022 COVID-19 VACCINE(3 - Pfizer series) due on 06/16/2023 INFLUENZA(1) due on 10/30/2022 ANNUAL PCP TEAM CHRONIC DISEASE VISIT due on 07/21/2023 LUNG CANCER SCREENING due on 08/21/2023 COLORECTAL CANCER SCREENING due on 07/24/2024 DIABETES SCREEN due on 06/16/2025 LIPID SCREEN due on 06/17/2027 BONE DENSITY Completed SPIROMETRY Completed ADVANCE DIRECTIVE DISCUSSION Completed HEPATITIS C SCREENING Completed PNEUMOCOCCAL: 65+ Completed Data reviewed A/P ASSESSMENT/PLAN: 1. Coronary artery calcification - ICD9: 414.00, 414.4, ICD10: I25.10, I25.84 (primary diagnosis) - EXERCISE STRESS ECG (WITHOUT IMAGING) 2. SOB (shortness of breath) - ICD9: 786.05, ICD10: R06.02 - EXERCISE STRESS ECG (WITHOUT IMAGING) 3. Decreased stamina - ICD9: 780.79, ICD10: R53.83 - EXERCISE STRESS ECG (WITHOUT IMAGING) 4. Family history of early CAD - ICD9: V17.3, ICD10: Z82.49 - EXERCISE STRESS ECG (WITHOUT IMAGING) Will await stress test. Requested Prescriptions Signed Prescriptions Disp Refills ondansetron orally disintegrating (ZOFRAN ODT) 4 mg disintegrating tablet 20 tablet 2 Sig: Take 1 tablet by mouth every 8 hours as needed. triamcinolone acetonide (KENALOG) 0.1 % cream 80 g 0 Sig: Apply 1 application to affected area three times daily. Apply sparingly to area for rash/itching. Dewayne Chung MD documented in this encounter [facility] 08-25-2022 Miscellaneous Notes Phone call to patient to discuss results LDCT Lung Rads category 2-repeat CT in 12 mos Moderate CAC-recommend PCP/cardiology evaluation-Pt plans to call Dr. Chung. Left message for pt to call back regarding results. documented in this encounter [facility] 08-20-2022 Note HNO ID: [id number] Author: Negin Gill, RT(R) Service: ? Author Type: [employer] Handler Type: Progress Notes Filed: 08/20/2022 3:10 PM Note Text: Radiology Service Progress Note PATIENT NAME: Dianne Holly DATE OF SERVICE: August 20, 2022 TIME: 3:10 PM PATIENT IDENTITY VERIFICATION COMPLETED USING TWO (2) IDENTIFIERS: Name and Date of confirmed by patient verbally. FALL SCREENING: Has the patient had 2 falls in the last year or 1 fall with injury or currently using an Ambulatory Assistive Device (Walker, Cane, Wheelchair, Crutches, etc.)? No PATIENT GENDER DATA: Female. status: : No status: NO. PATIENT RELEVANT IMPLANT DATA REVIEWED: Yes RADIOLOGY DEPARTMENT: CT; Exam(s) Completed: Chest PERIPHERAL IV DATA: Not applicable SIGNED BY: RT Iron(R) August 20, 2022 3:10 PM [facility] 08-20-2022 History of Presen t illness Narrative Radiology Service Progress Note PATIENT NAME: Dianne Holly DATE OF SERVICE: August 20, 2022 TIME: 3:10 PM PATIENT IDENTITY VERIFICATION COMPLETED USING TWO (2) IDENTIFIERS: Name and Date of confirmed by patient verbally. FALL SCREENING: Has the patient had 2 falls in the last year or 1 fall with injury or currently using an Ambulatory Assistive Device (Walker, Cane, Wheelchair, Crutches, etc.)? No PATIENT GENDER DATA: Female. status: : No status: NO. PATIENT RELEVANT IMPLANT DATA REVIEWED: Yes RADIOLOGY DEPARTMENT: CT; Exam(s) Completed: Chest PERIPHERAL IV DATA: Not applicable SIGNED BY: RT Iron(R) August 20, 2022 3:10 PM documented in this encounter [facility] 08-17-2022 Miscellaneous Notes Left the patient a voice message and sent [employer] message about the canceled appointment and the new appointment date, time, and location. documented in this encounter [facility] 08-07-2022 Note HNO ID: [id number] Author: Yan Bell Jr., MD Service: ? Author Type: Physician Type: Progress Notes Filed: 08/07/2022 4:26 PM Note Text: NEW PATIENT (CONSULT) HISTORY AND PHYSICAL EXAM PRIMARY CARE PHYSICIAN: Dewayne Chung MD REASON FOR CONSULT: MÓNICA REFERRING PHYSICIAN: Dewayne Chung MD CHIEF COMPLAINT: MÓNICA - sleep study results Consultation requested by Dewayne Chung MD for an opinion regarding chief complaint of Patient presents with: New Patient Evaluation New Patient and my final recommendations will be communicated back to the requesting physician by way of shared medical record or letter via [place] mail. HISTORY OF PRESENT ILLNESS: Dianne Holly is a 71 year old female, BMI 47.4 kg/m2 with a PMH significant for MÓNICA as determined by HSAT performed 07/23/22. Note that ANNY was 26.4. Pt also hypoxic during that study and uncertain if artifact, and thus recommend in lab sleep study. Pt underwent sleep study due to falling asleep all the time, falling asleep watching tv, and just feeling tired. Then at night waking up every 2-3 hours at night to urinate. States if gets up and does something the energy does return and feels more awake. Did have multiple life stressors in recent year with loss of multiple family members. Review of weight shows increase of about 10 pounds over the past 5 years. No issues falling asleep. No RLS symptoms. No parasomnias. No clear etiology for nocturia with no known history of DM or meds. Bedtime about 10PM, but does not fall asleep - watching tv - finally asleep until 1AM and then wakes between 9-10AM. Isabella Sleepiness Scale: Sitting and readin Watching TV: 2 Sitting, inactive in a public place (e.g. a theatre or a meeting): 2 As a passenger in a car for an hour without a break: 0 Lying down to rest in the afternoon when circumstances permit: 2 Sitting and talking to someone: 0 Sitting quietly after a lunch without alcohol: 1 In a car, while stopped for a few minutes in the traffic: 0 Total: 8 Sister with MÓNICA. REVIEW OF SYSTEMS GENERAL:No weight loss, malaise or fevers. HEENT:Negative for frequent or significant headaches, No changes in hearing or vision, no nose bleeds or other nasal problems Patient notes seeing white bump in back of throat but cannot visualize during visit - pt reports planned eval with ENT coming up. NECK:Negative for lumps, goiter, pain and significant neck swelling RESPIRATORY: Negative for cough, wheezing or shortness of breath. CARDIOVASCULAR: Negative for chest pain, leg swelling or palpitations. GASTROINTESTINAL: Negative for abdominal discomfort, blood in stools or black stools or change in bowel habits GENITOURINARY: No history of dysuria, frequency or incontinence MUSCULOSKELETAL: Chronic hip pain. PSYCH: See HPI. No depression. No SI or HI. NEURO: No HERRON, no focal weakness, no numbness. LAB/IMAGING: Reviewed and include: WBC (k/uL) Date Value 06/16/2022 8.22 RBC (m/uL) Date Value 06/16/2022 4.96 Hemoglobin (g/dL) Date Value 06/16/2022 14.5 Hematocrit (%) Date Value 06/16/2022 46.3 (H) MCV (fL) Date Value 06/16/2022 93.3 MCH (pg) Date Value 06/16/2022 29.2 MCHC (g/dL) Date Value 06/16/2022 31.3 RDW-CV (%) Date Value 06/16/2022 14.4 Platelet Count (k/uL) Date Value 06/16/2022 293 MPV (fL) Date Value 06/16/2022 10.7 Glucose (mg/dL) Date Value 06/16/2022 84 BUN (mg/dL) Date Value 06/16/2022 28 (H) Creatinine (mg/dL) Date Value 06/16/2022 1.13 (H) Sodium (mmol/L) Date Value 06/16/2022 140 Potassium (mmol/L) Date Value 06/16/2022 4.5 Chloride (mmol/L) Date Value 06/16/2022 103 CO2 (mmol/L) Date Value 06/16/2022 25 Protein, Total (g/dL) Date Value 06/16/2022 6.9 Albumin (g/dL) Date Value 06/16/2022 4.3 Calcium, Total (mg/dL) Date Value 06/16/2022 9.9 Alkaline Phosphatase (U/L) Date Value 06/16/2022 71 Bilirubin, Total (mg/dL) Date Value 06/16/2022 0.6 AST (U/L) Date Value 06/16/2022 15 ALT (U/L) Date Value 06/16/2022 17 Hep C Antibody IA (no units) Date Value 04/14/2016 Negative MEDICATIONS: amoxicillin-clavulanic acid (AUGMENTIN) 875-125 mg per tablet Take 1 tablet by mouth twice daily. Take 1 tablet every 12 hours HYDROcodone-acetaminophen (NORCO) 5-325 mg per tablet Take 1 tablet by mouth four times daily as needed for pain. Take one tablet every 4 hours as needed for pain fluticasone furoate (ARNUITY ELLIPTA) 100 mcg/actuation inhaler Inhale 1 Puff as instructed once daily. Do a quick inhalation prior to brushing teeth. Then brush teeth, rinse, gargle and spit. cyanocobalamin (VITAMIN B-12) 1,000 mcg tab Take 1 tablet by mouth once daily. solifenacin (VESICARE) 5 mg tablet Take 1 tablet by mouth once daily. buPROPion SR (WELLBUTRIN SR) 150 mg 12 hr tablet Take 1 tablet by mouth once daily. lisinopril-hydroCHLOROthiazide (ZESTORETIC) 20-1 (more content not included)... [facility] 08-07-2022 History of Presen t illness Narrative NEW PATIENT (CONSULT) HISTORY AND PHYSICAL EXAM PRIMARY CARE PHYSICIAN: Dewayne Chung MD REASON FOR CONSULT: MÓNICA REFERRING PHYSICIAN: Dewayne Chung MD CHIEF COMPLAINT: MÓNICA - sleep study results Consultation requested by Dewayne Chung MD for an opinion regarding chief complaint of Patient presents with: New Patient Evaluation New Patient and my final recommendations will be communicated back to the requesting physician by way of shared medical record or letter via [place] mail. HISTORY OF PRESENT ILLNESS: Dianne Holly is a 71 year old female, BMI 47.4 kg/m2 with a PMH significant for MÓNICA as determined by HSAT performed 07/23/22. Note that ANNY was 26.4. Pt also hypoxic during that study and uncertain if artifact, and thus recommend in lab sleep study. Pt underwent sleep study due to falling asleep all the time, falling asleep watching tv, and just feeling tired. Then at night waking up every 2-3 hours at night to urinate. States if gets up and does something the energy does return and feels more awake. Did have multiple life stressors in recent year with loss of multiple family members. Review of weight shows increase of about 10 pounds over the past 5 years. No issues falling asleep. No RLS symptoms. No parasomnias. No clear etiology for nocturia with no known history of DM or meds. Bedtime about 10PM, but does not fall asleep - watching tv - finally asleep until 1AM and then wakes between 9-10AM. Isabella Sleepiness Scale: Sitting and readin Watching TV: 2 Sitting, inactive in a public place (e.g. a theatre or a meeting): 2 As a passenger in a car for an hour without a break: 0 Lying down to rest in the afternoon when circumstances permit: 2 Sitting and talking to someone: 0 Sitting quietly after a lunch without alcohol: 1 In a car, while stopped for a few minutes in the traffic: 0 Total: 8 Sister with MÓNICA. REVIEW OF SYSTEMS GENERAL:No weight loss, malaise or fevers. HEENT:Negative for frequent or significant headaches, No changes in hearing or vision, no nose bleeds or other nasal problems Patient notes seeing white bump in back of throat but cannot visualize during visit - pt reports planned eval with ENT coming up. NECK:Negative for lumps, goiter, pain and significant neck swelling RESPIRATORY: Negative for cough, wheezing or shortness of breath. CARDIOVASCULAR: Negative for chest pain, leg swelling or palpitations. GASTROINTESTINAL: Negative for abdominal discomfort, blood in stools or black stools or change in bowel habits GENITOURINARY: No history of dysuria, frequency or incontinence MUSCULOSKELETAL: Chronic hip pain. PSYCH: See HPI. No depression. No SI or HI. NEURO: No HERRON, no focal weakness, no numbness. LAB/IMAGING: Reviewed and include: WBC (k/uL) Date Value 06/16/2022 8.22 RBC (m/uL) Date Value 06/16/2022 4.96 Hemoglobin (g/dL) Date Value 06/16/2022 14.5 Hematocrit (%) Date Value 06/16/2022 46.3 (H) MCV (fL) Date Value 06/16/2022 93.3 MCH (pg) Date Value 06/16/2022 29.2 MCHC (g/dL) Date Value 06/16/2022 31.3 RDW-CV (%) Date Value 06/16/2022 14.4 Platelet Count (k/uL) Date Value 06/16/2022 293 MPV (fL) Date Value 06/16/2022 10.7 Glucose (mg/dL) Date Value 06/16/2022 84 BUN (mg/dL) Date Value 06/16/2022 28 (H) Creatinine (mg/dL) Date Value 06/16/2022 1.13 (H) Sodium (mmol/L) Date Value 06/16/2022 140 Potassium (mmol/L) Date Value 06/16/2022 4.5 Chloride (mmol/L) Date Value 06/16/2022 103 CO2 (mmol/L) Date Value 06/16/2022 25 Protein, Total (g/dL) Date Value 06/16/2022 6.9 Albumin (g/dL) Date Value 06/16/2022 4.3 Calcium, Total (mg/dL) Date Value 06/16/2022 9.9 Alkaline Phosphatase (U/L) Date Value 06/16/2022 71 Bilirubin, Total (mg/dL) Date Value 06/16/2022 0.6 AST (U/L) Date Value 06/16/2022 15 ALT (U/L) Date Value 06/16/2022 17 Hep C Antibody IA (no units) Date Value 04/14/2016 Negative MEDICATIONS: amoxicillin-clavulanic acid (AUGMENTIN) 875-125 mg per tablet Take 1 tablet by mouth twice daily. Take 1 tablet every 12 hours HYDROcodone-acetaminophen (NORCO) 5-325 mg per tablet Take 1 tablet by mouth four times daily as needed for pain. Take one tablet every 4 hours as needed for pain fluticasone furoate (ARNUITY ELLIPTA) 100 mcg/actuation inhaler Inhale 1 Puff as instructed once daily. Do a quick inhalation prior to brushing teeth. Then brush teeth, rinse, gargle and spit. cyanocobalamin (VITAMIN B-12) 1,000 mcg tab Take 1 tablet by mouth once daily. solifenacin (VESICARE) 5 mg tablet Take 1 tablet by mouth once daily. buPROPion SR (WELLBUTRIN SR) 150 mg 12 hr tablet Take 1 tablet by mouth once daily. lisinopril-hydroCHLOROthiazide (ZESTORETIC) 20-12.5 mg per tablet Take 2 tablets by mouth once daily. omeprazole (PRILOSEC) 20 mg capsule Take 1 capsule by mouth once daily. verapamil SR (CALAN SR) 180 mg CR tablet Take 1.5 tablets by mouth once daily. sertraline (ZOLOFT) 100 mg tablet Take 1.5 tablets by mouth every evening. pravastatin (PRAVACHOL) 40 mg tablet Take 1 tablet by mouth daily at bedtime. ondansetron orally disintegrating (ZOFRAN ODT) 4 mg disintegrating tablet Take 1 tablet by mouth every 8 hours as needed. albuterol HFA (PROVENTIL HFA, VENTOLIN HFA) 90 mcg/actuation inhaler Inhale 2 Puffs as instructed every 6 hours as needed. triamcinolone acetonide (KENALOG) 0.1 % cream Apply 1 application to affected area three times daily. Apply sparingly to area for rash/itching. MEDICAL SUPPLY BEDSIDE COMMODE. dx: right total hip replacement. z96.641 COMPOUNDED PRESCRIPTION Bedside Commode Dx: right total hip replacement Z96.641 peg 3350-Electrolytes (GOLYTELY) 236-22.74-6.74 -5.86 gram suspension Refer to printed prep instructions from your provider. (Patient not taking: Reported on 12/08/2021) HISTORIES PAST MEDICAL HISTORY Diagnosis Date Adenoma of left adrenal gland 12/06/2018 Seen [facility] ER CT 11/28/2018 was stable in size since CT done 11/2015: benign. ADRENAL NODULE 11/17/2007 Anxiety state 11/19/2006 Arthritis Benign neoplasm of colon BPPV (benign paroxysmal positional vertigo) 04/03/2015 Chronic left shoulder pain 09/17/2015 Class 3 severe obesity due to excess calories without serious comorbidity with body mass index (BMI) of 45.0 to 49.9 in adult ([facility]) 06/18/2014 DDD (degenerative disc disease), lumbar 01/15/2016 Delayed emergence from general anesthesia Diverticulitis of large intestine without perforation or abscess without bleeding 06/03/2016 Emphysema of lung ([facility]) 06/18/2014 Essential hypertension 11/19/2006 Gastroesophageal reflux disease without esophagitis 11/19/2006 Generalized osteoarthrosis, unspecified site 11/19/2006 Internal hemorrhoids Medicare annual wellness visit, initial 11/23/2017 Medicare Part B: 11/29/2016 last done: 11/16/2018 Mixed hyperlipidemia 03/19/2008 Moderate obstructive sleep apnea 08/03/2022 Consult sleep med 07/2022 Osteoarthritis of lumbar spine 01/15/2016 Osteoarthritis of multiple joints 11/19/2006 Overactive bladder 01/16/2019 Primary osteoarthritis of right hip 09/21/2016 Primary ovarian failure 11/23/2017 Recurrent major depressive disorder, in remission ([facility]) 11/23/2017 Smoker 05/27/2010 Status post right hip replacement 10/01/2017 Venous insufficiency (chronic) (peripheral) 10/16/2014 Vertigo 06/14/2017 Vitamin B12 deficiency 05/26/2021 FAMILY HISTORY Problem Relation Age of Onset Colon Cancer Mother Diabetes Mother rectal cancer/kidney failure Melanoma Father other (obese) Sister hypertension Colon Cancer Sister Breast Cancer Sister 55 triple negative Blood Disease Sister amyloidosis other (obese) Brother Coronary Artery Disease Brother 47 1st AMI Heart Attack Brother other (Liver Issues) Daughter Alcohol/Drug Daughter SOCIAL HISTORY Social History Tobacco Use Smoking status: Every Day Packs/day: 0.80 Years: 50.00 Pack years: 40.00 Types: Cigarettes Start date: 03/01/1967 Smokeless tobacco: Never Tobacco comments: recently cut back to 03/02 ppd Vaping Use Vaping Use: Never used Substance Use Topics Alcohol use: Yes Comment: rare Drug use: No PHYSICAL EXAMINATION BP 133/83 Pulse 75 Temp 36.9 C (98.4 F) Resp 18 Wt 119.4 kg (263 lb 3.2 oz) SpO2 94% BMI 47.40 kg/m GENERAL EXAM: General appearance: NAD, pleasant. HEENT: NC/AT, nasal congestion absent, no oral lesions, membranes moist. Fuller IV. NECK: ROM nml. Lungs: CTA bilaterally. CV: RRR nl S1, S2. Extr: No cyanosis, clubbing or edema. NEUROLOGICAL EXAM: General: Awake, alert, oriented x3 (person,place,time), speech fluent, no dysarthria; comprehension, naming, repetition intact. CN: PERRL, EOMI and without nystagmus, VFF to confrontation, facial sensation and strength are normal and symmetric, hearing is intact to finger rub bilaterally, palate and tongue movements are intact and symmetric. SCM and trapezius strength normal. Motor: Normal tone, bulk and strength (5/5) bilaterally (throughout extremities x4). Coordination: FNF, JULY, HTS intact. No tremors. Sensation: LT intact throughout. No evidence of neglect. Gait: Mild wide based but stable. Assessment and Plan: ASSESSMENT/PLAN: 1. MÓNICA (obstructive sleep apnea) - ICD9: 327.23, ICD10: G47.33 (primary diagnosis) 2. Sleep related hypoxia - ICD9: 327.24, ICD10: G47.34 3. Class 3 severe obesity with body mass index (BMI) of 45.0 to 49.9 in adult, unspecified obesity type, unspecified whether serious comorbidity present (HCC) - ICD9: 278.01, V85.42, ICD10: E66.01, Z68.42 Patient with moderate MÓNICA as determined by HSAT (likely underestimated due to limitations of HSAT study given lack of EEG). Risk factors for MÓNICA include crowded airway and obesity. Discussed with patient: the physiology of OSAS, medical conditions associated with OSAS (DM, HTN, CAD, Depression, Stroke, Headache...) and treatment options (UPPP, Dental appliances, CPAP, Inspire...). Given the severity of patient's OSAS and associated hypoxia during HSAT (unknown if or if not artifact) feel appropriate for patient to undergo PAP titration with transcutaneous CO2. Pt agrees with plan but requests study be performed at [facility]. Will order treatment based on PAP titration results with follow up approximately 2-3 months later. Pt agrees with plan. Did ask patient to contact us once sleep study complete so that we can request results. Advised patient to avoid activities that could harm self or others when tired/sleepy, including driving and/or operating heavy machinery. Encouraged weight loss, and continued compliance with other medications. 4. 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 However, at this time not interrupting daytime function and pt not wanting to make changes to the schedule. Advised pt to contact us if this does become a concern. Yan Bell MD I spent a total of 45+ minutes on the date of the service which included preparing to see the patient, [id number] patient care, completing clinical documentation, obtaining and/or reviewing separately obtained history, performing a medically appropriate examination, counseling and educating the patient/family/caregiver, ordering medications, tests, or procedures, and communicating results to the patient/family/caregiver. Medical Decision Making: Problems: Moderate: New problem with uncertain prognosis Data: Unique test result(s) reviewed: 2 Unique test(s) ordered: 1 Risk: Low: Low risk from testing/treatment Medical Decision Making Level: 4 - Moderate documented in this encounter [facility] 08-04-2022 Miscellaneous Notes TC to patient as Dr. Bell has a cancellation on his schedule for this 08/07/22 for a new patient. Dianne excepted appointment and was rescheduled accordingly. ANNITA Pierre Patient scheduled with Dr. Bell on , his first available in [place]. Patient does not want to travel out of town. Is this appointment date ok? documented in this encounter [facility] 08-04-2022 Miscellaneous Notes Pt notified of results and was transferred to schedule with sleep med. Kina Villegas LPN Let patient know her home study showed moderate sleep apnea. Order placed for consult to Sleep med. documented in this encounter [facility] 07-20-2022 Note HNO ID: [id number] Author: Allie Lemus APRN.SHEET HEATER Service: ? Author Type: Nurse Practitioner Type: Progress Notes Filed: 07/20/2022 11:51 AM Note Text: Chief Complaint Patient presents with: Follow Up: Dog bite HPI Dianne Holly is a 71 year old female who presents here today for Above Complaints.. Patient presents for follow up for dog bite. Patient was seen last week and completed course of augmentin. Wound showed no sign of infection but was still draining as patient had area IANDD'd on 07/06/2022. Past medical history, appointments, medications, allergies reviewed. Previous Medical History PAST MEDICAL HISTORY Diagnosis Date Adenoma of left adrenal gland 12/06/2018 Seen [facility] ER CT 11/28/2018 was stable in size since CT done 11/2015: benign. ADRENAL NODULE 11/17/2007 Anxiety state 11/19/2006 Arthritis Benign neoplasm of colon BPPV (benign paroxysmal positional vertigo) 04/03/2015 Chronic left shoulder pain 09/17/2015 Class 3 severe obesity due to excess calories without serious comorbidity with body mass index (BMI) of 45.0 to 49.9 in adult ([facility]) 06/18/2014 DDD (degenerative disc disease), lumbar 01/15/2016 Delayed emergence from general anesthesia Diverticulitis of large intestine without perforation or abscess without bleeding 06/03/2016 Emphysema of lung ([facility]) 06/18/2014 Essential hypertension 11/19/2006 Gastroesophageal reflux disease without esophagitis 11/19/2006 Generalized osteoarthrosis, unspecified site 11/19/2006 Internal hemorrhoids Medicare annual wellness visit, initial 11/23/2017 Medicare Part B: 11/29/2016 last done: 11/16/2018 Mixed hyperlipidemia 03/19/2008 Osteoarthritis of lumbar spine 01/15/2016 Osteoarthritis of multiple joints 11/19/2006 Overactive bladder 01/16/2019 Primary osteoarthritis of right hip 09/21/2016 Primary ovarian failure 11/23/2017 Recurrent major depressive disorder, in remission (HCC) 11/23/2017 Smoker 05/27/2010 Status post right hip replacement 10/01/2017 Venous insufficiency (chronic) (peripheral) 10/16/2014 Vertigo 06/14/2017 Vitamin B12 deficiency 05/26/2021 Previous Surgical History PAST SURGICAL HISTORY Procedure Laterality Date ARTHROSCOPY KNEE DIAGNOSTIC W/WO SYNOVIAL BX SPX 2001 Arthroscopy, knee right ARTHRP ACETBLR/PROX FEM PROSTC AGRFT/ALGRFT Right 06/23/2017 Hip replacement, total BREAST SURGERY HX COLONOSCOPY 07/24/2021 COLONOSCOPY AND POLYPECTOMY 06/16/2016 repeat 5 years COLONOSCOPY W/BIOPSY SINGLE/MULTIPLE 04/01/2009 EGD TRANSORAL BIOPSY SINGLE/MULTIPLE 06/22/2012 [facility] Dr Marroquin FRACTURE SURGERY JOINT REPLACEMENT HX LIG/TRNSXJ FLP TUBE ABDL/VAG APPR UNI/BI 1974 Tubal ligation PAST SURGICAL HISTORY OF 1984 ovarian cyst PAST SURGICAL HISTORY OF 2006 right breast removed bonnie. tumor PAST SURGICAL HISTORY OF 05/2008 bilateral eye lid surgery REM LESIO TRUNK,ARM,LEG 1.1 -2.0CM 12/22/2006 Exc. right lower back skin lesion SKIN BIOPSY HX TOTAL ABDOMINAL HYSTERECT W/WO RMVL TUBE OVARY 1987 Hysterectomy, EDWINA - ovaries remain VAGINAL HYSTERECTOMY Family History FAMILY HISTORY Problem Relation Age of Onset Colon Cancer Mother Diabetes Mother rectal cancer/kidney failure Melanoma Father other (obese) Sister hypertension Colon Cancer Sister Breast Cancer Sister 55 triple negative Blood Disease Sister amyloidosis other (obese) Brother Coronary Artery Disease Brother 47 1st AMI Heart Attack Brother other (Liver Issues) Daughter Alcohol/Drug Daughter Patient Allergies ALLERGIES Allergen Reactions Flagyl [Metronidazo* Itching, Other: See Comments nausea/ throat swelling Ibuprofen Vomiting Hematemesis - [facility] 06/21/2012 Nickel Rash Can only wear gold earrings Current Medications Current Outpatient Medications on File Prior to Visit Medication Sig amoxicillin-clavulanic acid (AUGMENTIN) 875-125 mg per tablet Take 1 tablet by mouth twice daily. Take 1 tablet every 12 hours HYDROcodone-acetaminophen (NORCO) 5-325 mg per tablet Take 1 tablet by mouth four times daily as needed for pain. Take one tablet every 4 hours as needed for pain fluticasone furoate (ARNUITY ELLIPTA) 100 mcg/actuation inhaler Inhale 1 Puff as instructed once daily. Do a quick inhalation prior to brushing teeth. Then brush teeth, rinse, gargle and spit. cyanocobalamin (VITAMIN B-12) 1,000 mcg tab Take 1 tablet by mouth once daily. solifenacin (VESICARE) 5 mg tablet Take 1 tablet by mouth once daily. buPROPion SR (WELLBUTRIN SR) 150 mg 12 hr tablet Take 1 tablet by mouth once daily. lisinopril-hydroCHLOROthiazide (ZESTORETIC) 20-12.5 mg per tablet Take 2 tablets by mouth once daily. omeprazole (PRILOSEC) 20 mg capsule Take 1 capsule by mouth once daily. verapamil SR (CALAN SR) 180 mg CR tablet Take 1.5 tablets by mouth once daily. sertraline (ZOLOFT) 100 mg tablet Take 1.5 tablets by mouth every evening. pravastatin (PRAVACHOL (more content not included)... [facility] 07-13-2022 Note HNO ID: [id number] Author: Allie Lemus APRN.SHEET HEATER Service: ? Author Type: Nurse Practitioner Type: Progress Notes Filed: 07/13/2022 11:30 AM Note Text: Chief Complaint Patient presents with: Follow Up: Dog bite HPI Dianne Holly is a 71 year old female who presents here today for Above Complaints.. Patient presents for follow up for dog bite. Patient was seen on at which time the old packing was removed and new packing placed. Patient presents today with decreased swelling and increased mobility of left hand. Past medical history, appointments, medications, allergies reviewed. Previous Medical History PAST MEDICAL HISTORY Diagnosis Date Adenoma of left adrenal gland 12/06/2018 Seen [facility] ER CT 11/28/2018 was stable in size since CT done 11/2015: benign. ADRENAL NODULE 11/17/2007 Anxiety state 11/19/2006 Arthritis Benign neoplasm of colon BPPV (benign paroxysmal positional vertigo) 04/03/2015 Chronic left shoulder pain 09/17/2015 Class 3 severe obesity due to excess calories without serious comorbidity with body mass index (BMI) of 45.0 to 49.9 in adult ([facility]) 06/18/2014 DDD (degenerative disc disease), lumbar 01/15/2016 Delayed emergence from general anesthesia Diverticulitis of large intestine without perforation or abscess without bleeding 06/03/2016 Emphysema of lung ([facility]) 06/18/2014 Essential hypertension 11/19/2006 Gastroesophageal reflux disease without esophagitis 11/19/2006 Generalized osteoarthrosis, unspecified site 11/19/2006 Internal hemorrhoids Medicare annual wellness visit, initial 11/23/2017 Medicare Part B: 11/29/2016 last done: 11/16/2018 Mixed hyperlipidemia 03/19/2008 Osteoarthritis of lumbar spine 01/15/2016 Osteoarthritis of multiple joints 11/19/2006 Overactive bladder 01/16/2019 Primary osteoarthritis of right hip 09/21/2016 Primary ovarian failure 11/23/2017 Recurrent major depressive disorder, in remission (HCC) 11/23/2017 Smoker 05/27/2010 Status post right hip replacement 10/01/2017 Venous insufficiency (chronic) (peripheral) 10/16/2014 Vertigo 06/14/2017 Vitamin B12 deficiency 05/26/2021 Previous Surgical History PAST SURGICAL HISTORY Procedure Laterality Date ARTHROSCOPY KNEE DIAGNOSTIC W/WO SYNOVIAL BX SPX 2001 Arthroscopy, knee right ARTHRP ACETBLR/PROX FEM PROSTC AGRFT/ALGRFT Right 06/23/2017 Hip replacement, total BREAST SURGERY HX COLONOSCOPY 07/24/2021 COLONOSCOPY AND POLYPECTOMY 06/16/2016 repeat 5 years COLONOSCOPY W/BIOPSY SINGLE/MULTIPLE 04/01/2009 EGD TRANSORAL BIOPSY SINGLE/MULTIPLE 06/22/2012 [facility] Dr Marroquin FRACTURE SURGERY JOINT REPLACEMENT HX LIG/TRNSXJ FLP TUBE ABDL/VAG APPR UNI/BI 1973 Tubal ligation PAST SURGICAL HISTORY OF 1984 ovarian cyst PAST SURGICAL HISTORY OF 2006 right breast removed bonnie. tumor PAST SURGICAL HISTORY OF 05/2008 bilateral eye lid surgery REM LESIO TRUNK,ARM,LEG 1.1 -2.0CM 12/22/2006 Exc. right lower back skin lesion SKIN BIOPSY HX TOTAL ABDOMINAL HYSTERECT W/WO RMVL TUBE OVARY 1987 Hysterectomy, EDWINA - ovaries remain VAGINAL HYSTERECTOMY Family History FAMILY HISTORY Problem Relation Age of Onset Colon Cancer Mother Diabetes Mother rectal cancer/kidney failure Melanoma Father other (obese) Sister hypertension Colon Cancer Sister Breast Cancer Sister 55 triple negative Blood Disease Sister amyloidosis other (obese) Brother Coronary Artery Disease Brother 47 1st AMI Heart Attack Brother other (Liver Issues) Daughter Alcohol/Drug Daughter Patient Allergies ALLERGIES Allergen Reactions Flagyl [Metronidazo* Itching, Other: See Comments nausea/ throat swelling Ibuprofen Vomiting Hematemesis - [facility] 06/21/2012 Nickel Rash Can only wear gold earrings Current Medications Current Outpatient Medications on File Prior to Visit Medication Sig amoxicillin-clavulanic acid (AUGMENTIN) 875-125 mg per tablet Take 1 tablet by mouth twice daily. Take 1 tablet every 12 hours HYDROcodone-acetaminophen (NORCO) 5-325 mg per tablet Take 1 tablet by mouth four times daily as needed for pain. Take one tablet every 4 hours as needed for pain fluticasone furoate (ARNUITY ELLIPTA) 100 mcg/actuation inhaler Inhale 1 Puff as instructed once daily. Do a quick inhalation prior to brushing teeth. Then brush teeth, rinse, gargle and spit. cyanocobalamin (VITAMIN B-12) 1,000 mcg tab Take 1 tablet by mouth once daily. solifenacin (VESICARE) 5 mg tablet Take 1 tablet by mouth once daily. buPROPion SR (WELLBUTRIN SR) 150 mg 12 hr tablet Take 1 tablet by mouth once daily. lisinopril-hydroCHLOROthiazide (ZESTORETIC) 20-12.5 mg per tablet Take 2 tablets by mouth once daily. omeprazole (PRILOSEC) 20 mg capsule Take 1 capsule by mouth once daily. verapamil SR (CALAN SR) 180 mg CR tablet Take 1.5 tablets by mouth once daily. sertraline (ZOLOFT) 100 mg tablet Take 1.5 tablets by mouth every evening. p (more content not included)... [facility] 07-13-2022 Instructions Allie Lemus APRN.STEPHANI - 07/13/2022 11:24 AM EDT Keep are dry and dressing intact Follow up in 1 week documented in this encounter [facility] 07-13-2022 History of Presen t illness Narrative Chief Complaint Patient presents with: Follow Up: Dog bite HPI Dianne Holly is a 71 year old female who presents here today for Above Complaints.. Patient presents for follow up for dog bite. Patient was seen on at which time the old packing was removed and new packing placed. Patient presents today with decreased swelling and increased mobility of left hand. Past medical history, appointments, medications, allergies reviewed. Previous Medical History PAST MEDICAL HISTORY Diagnosis Date Adenoma of left adrenal gland 12/06/2018 Seen [facility] ER CT 11/28/2018 was stable in size since CT done 11/2015: benign. ADRENAL NODULE 11/17/2007 Anxiety state 11/19/2006 Arthritis Benign neoplasm of colon BPPV (benign paroxysmal positional vertigo) 04/03/2015 Chronic left shoulder pain 09/17/2015 Class 3 severe obesity due to excess calories without serious comorbidity with body mass index (BMI) of 45.0 to 49.9 in adult (HCC) 06/18/2014 DDD (degenerative disc disease), lumbar 01/15/2016 Delayed emergence from general anesthesia Diverticulitis of large intestine without perforation or abscess without bleeding 06/03/2016 Emphysema of lung ([facility]) 06/18/2014 Essential hypertension 11/19/2006 Gastroesophageal reflux disease without esophagitis 11/19/2006 Generalized osteoarthrosis, unspecified site 11/19/2006 Internal hemorrhoids Medicare annual wellness visit, initial 11/23/2017 Medicare Part B: 11/29/2016 last done: 11/16/2018 Mixed hyperlipidemia 03/19/2008 Osteoarthritis of lumbar spine 01/15/2016 Osteoarthritis of multiple joints 11/19/2006 Overactive bladder 01/16/2019 Primary osteoarthritis of right hip 09/21/2016 Primary ovarian failure 11/23/2017 Recurrent major depressive disorder, in remission ([facility]) 11/23/2017 Smoker 05/27/2010 Status post right hip replacement 10/01/2017 Venous insufficiency (chronic) (peripheral) 10/16/2014 Vertigo 06/14/2017 Vitamin B12 deficiency 05/26/2021 Previous Surgical History PAST SURGICAL HISTORY Procedure Laterality Date ARTHROSCOPY KNEE DIAGNOSTIC W/WO SYNOVIAL BX SPX 2001 Arthroscopy, knee right ARTHRP ACETBLR/PROX FEM PROSTC AGRFT/ALGRFT Right 06/23/2017 Hip replacement, total BREAST SURGERY HX COLONOSCOPY 07/24/2021 COLONOSCOPY & POLYPECTOMY 06/16/2016 repeat 5 years COLONOSCOPY W/BIOPSY SINGLE/MULTIPLE 04/01/2009 EGD TRANSORAL BIOPSY SINGLE/MULTIPLE 06/22/2012 [facility] Dr Marroquin FRACTURE SURGERY JOINT REPLACEMENT HX LIG/TRNSXJ FLP TUBE ABDL/VAG APPR UNI/BI 1974 Tubal ligation PAST SURGICAL HISTORY OF 1984 ovarian cyst PAST SURGICAL HISTORY OF 2006 right breast removed bonnie. tumor PAST SURGICAL HISTORY OF 05/2008 bilateral eye lid surgery REM LESIO TRUNK,ARM,LEG 1.1 -2.0CM 12/22/2006 Exc. right lower back skin lesion SKIN BIOPSY HX TOTAL ABDOMINAL HYSTERECT W/WO RMVL TUBE OVARY 1987 Hysterectomy, EDWINA - ovaries remain VAGINAL HYSTERECTOMY Family History FAMILY HISTORY Problem Relation Age of Onset Colon Cancer Mother Diabetes Mother rectal cancer/kidney failure Melanoma Father other (obese) Sister hypertension Colon Cancer Sister Breast Cancer Sister 55 triple negative Blood Disease Sister amyloidosis other (obese) Brother Coronary Artery Disease Brother 47 1st AMI Heart Attack Brother other (Liver Issues) Daughter Alcohol/Drug Daughter Patient Allergies ALLERGIES Allergen Reactions Flagyl [Metronidazo* Itching, Other: See Comments nausea/ throat swelling Ibuprofen Vomiting Hematemesis - [facility] 06/21/2012 Nickel Rash Can only wear gold earrings Current Medications Current Outpatient Medications on File Prior to Visit Medication Sig amoxicillin-clavulanic acid (AUGMENTIN) 875-125 mg per tablet Take 1 tablet by mouth twice daily. Take 1 tablet every 12 hours HYDROcodone-acetaminophen (NORCO) 5-325 mg per tablet Take 1 tablet by mouth four times daily as needed for pain. Take one tablet every 4 hours as needed for pain fluticasone furoate (ARNUITY ELLIPTA) 100 mcg/actuation inhaler Inhale 1 Puff as instructed once daily. Do a quick inhalation prior to brushing teeth. Then brush teeth, rinse, gargle and spit. cyanocobalamin (VITAMIN B-12) 1,000 mcg tab Take 1 tablet by mouth once daily. solifenacin (VESICARE) 5 mg tablet Take 1 tablet by mouth once daily. buPROPion SR (WELLBUTRIN SR) 150 mg 12 hr tablet Take 1 tablet by mouth once daily. lisinopril-hydroCHLOROthiazide (ZESTORETIC) 20-12.5 mg per tablet Take 2 tablets by mouth once daily. omeprazole (PRILOSEC) 20 mg capsule Take 1 capsule by mouth once daily. verapamil SR (CALAN SR) 180 mg CR tablet Take 1.5 tablets by mouth once daily. sertraline (ZOLOFT) 100 mg tablet Take 1.5 tablets by mouth every evening. pravastatin (PRAVACHOL) 40 mg tablet Take 1 tablet by mouth daily at bedtime. ondansetron orally disintegrating (ZOFRAN ODT) 4 mg disintegrating tablet Take 1 tablet by mouth every 8 hours as needed. albuterol HFA (PROVENTIL HFA, VENTOLIN HFA) 90 mcg/actuation inhaler Inhale 2 Puffs as instructed every 6 hours as needed. peg 3350-Electrolytes (GOLYTELY) 236-22.74-6.74 -5.86 gram suspension Refer to printed prep instructions from your provider. (Patient not taking: Reported on 12/08/2021) triamcinolone acetonide (KENALOG) 0.1 % cream Apply 1 application to affected area three times daily. Apply sparingly to area for rash/itching. MEDICAL SUPPLY BEDSIDE COMMODE. dx: right total hip replacement. z96.641 COMPOUNDED PRESCRIPTION Bedside Commode Dx: right total hip replacement Z96.641 No current facility-administered medications on file prior to visit. Social History Social History Tobacco Use Smoking status: Every Day Packs/day: 0.80 Years: 50.00 Pack years: 40.00 Types: Cigarettes Start date: 03/01/1967 Smokeless tobacco: Never Tobacco comments: recently cut back to 03/02 ppd Vaping Use Vaping Use: Never used Substance Use Topics Alcohol use: Yes Comment: rare Drug use: No Review of Symptoms REVIEW OF SYSTEMS SEE HPI EXAM: BP 130/80 Pulse 84 Resp 16 Wt 121.6 kg (268 lb) BMI 48.27 kg/m General Appearance: Well appearing, alert, in no acute distress, well-hydrated, well nourished.. Skin: Positives: 2.5 cm long with granulation tissue noted to wound bed. Extremities: Positive findings: Decreased swelling to fingers and hand. Health Maintenance List LUNG CANCER SCREENING Never done SHINGRIX VACCINE(1 of 2) Never done DTAP,TDAP,TD(2 - Td or Tdap) due on 05/14/2020 MAMMOGRAM due on 02/11/2022 ALPHA-1 ANTITRYPSIN DEFICIENCY SCREENING due on 12/08/2022 COVID-19 VACCINE(3 - Booster for Pfizer series) due on 06/16/2023 INFLUENZA(Season Ended) due on 10/30/2022 ANNUAL PCP TEAM CHRONIC DISEASE VISIT due on 07/10/2023 BP CONTROLLED (<130/80) due on 07/10/2023 COLORECTAL CANCER SCREENING due on 07/24/2024 DIABETES SCREEN due on 06/16/2025 LIPID SCREEN due on 06/17/2027 BONE DENSITY Completed SPIROMETRY Completed ADVANCE DIRECTIVE DISCUSSION Completed HEPATITIS C SCREENING Completed PNEUMOCOCCAL: 65+ Completed ASSESSMENT/PLAN: 1. Dog bite of left wrist with infection, subsequent encounter - ICD9: V58.89, 881.12, ICD10: S61.552D, L08.9, W54.0XXD - No lymphangetic streaking, this was defined for patient to watch for and to seek medical care immediately if appears - Follow up for recheck in 1 week - Check wound daily for redness. Be careful no to dislodge packing. Allie Lemus APRN.CNP documented in this encounter [facility] 07-09-2022 Note HNO ID: [id number] Author: Allie Lemus APRN.CNP Service: ? Author Type: Nurse Practitioner Type: Progress Notes Filed: 07/09/2022 11:00 AM Note Text: Chief Complaint Patient presents with: Recheck HPI Dianne Holly is a 71 year old female who presents here today for Above Complaints.. Patient presents for ER follow up for IANDD from dog bite. Patient was seen in ER on 07/06/2022 for worsening infection in her left hand from dog bite on 07/04. Patient underwent IANDD on 07/06/2022 and it was packed. Patient was instructed to follow up today to have packing removed. Past medical history, appointments, medications, allergies reviewed. Previous Medical History PAST MEDICAL HISTORY Diagnosis Date Adenoma of left adrenal gland 12/06/2018 Seen [facility] ER CT 11/28/2018 was stable in size since CT done 11/2015: benign. ADRENAL NODULE 11/17/2007 Anxiety state 11/19/2006 Arthritis Benign neoplasm of colon BPPV (benign paroxysmal positional vertigo) 04/03/2015 Chronic left shoulder pain 09/17/2015 Class 3 severe obesity due to excess calories without serious comorbidity with body mass index (BMI) of 45.0 to 49.9 in adult ([facility]) 06/18/2014 DDD (degenerative disc disease), lumbar 01/15/2016 Delayed emergence from general anesthesia Diverticulitis of large intestine without perforation or abscess without bleeding 06/03/2016 Emphysema of lung ([facility]) 06/18/2014 Essential hypertension 11/19/2006 Gastroesophageal reflux disease without esophagitis 11/19/2006 Generalized osteoarthrosis, unspecified site 11/19/2006 Internal hemorrhoids Medicare annual wellness visit, initial 11/23/2017 Medicare Part B: 11/29/2016 last done: 11/16/2018 Mixed hyperlipidemia 03/19/2008 Osteoarthritis of lumbar spine 01/15/2016 Osteoarthritis of multiple joints 11/19/2006 Overactive bladder 01/16/2019 Primary osteoarthritis of right hip 09/21/2016 Primary ovarian failure 11/23/2017 Recurrent major depressive disorder, in remission (HCC) 11/23/2017 Smoker 05/27/2010 Status post right hip replacement 10/01/2017 Venous insufficiency (chronic) (peripheral) 10/16/2014 Vertigo 06/14/2017 Vitamin B12 deficiency 05/26/2021 Previous Surgical History PAST SURGICAL HISTORY Procedure Laterality Date ARTHROSCOPY KNEE DIAGNOSTIC W/WO SYNOVIAL BX SPX 2001 Arthroscopy, knee right ARTHRP ACETBLR/PROX FEM PROSTC AGRFT/ALGRFT Right 06/23/2017 Hip replacement, total BREAST SURGERY HX COLONOSCOPY 07/24/2021 COLONOSCOPY AND POLYPECTOMY 06/16/2016 repeat 5 years COLONOSCOPY W/BIOPSY SINGLE/MULTIPLE 04/01/2009 EGD TRANSORAL BIOPSY SINGLE/MULTIPLE 06/22/2012 [facility] Dr Marroquin FRACTURE SURGERY JOINT REPLACEMENT HX LIG/TRNSXJ FLP TUBE ABDL/VAG APPR UNI/BI 1973 Tubal ligation PAST SURGICAL HISTORY OF 1984 ovarian cyst PAST SURGICAL HISTORY OF 2006 right breast removed bonnie. tumor PAST SURGICAL HISTORY OF 05/2008 bilateral eye lid surgery REM LESIO TRUNK,ARM,LEG 1.1 -2.0CM 12/22/2006 Exc. right lower back skin lesion SKIN BIOPSY HX TOTAL ABDOMINAL HYSTERECT W/WO RMVL TUBE OVARY 1987 Hysterectomy, EDWINA - ovaries remain VAGINAL HYSTERECTOMY Family History FAMILY HISTORY Problem Relation Age of Onset Colon Cancer Mother Diabetes Mother rectal cancer/kidney failure Melanoma Father other (obese) Sister hypertension Colon Cancer Sister Breast Cancer Sister 55 triple negative Blood Disease Sister amyloidosis other (obese) Brother Coronary Artery Disease Brother 47 1st AMI Heart Attack Brother other (Liver Issues) Daughter Alcohol/Drug Daughter Patient Allergies ALLERGIES Allergen Reactions Flagyl [Metronidazo* Itching, Other: See Comments nausea/ throat swelling Ibuprofen Vomiting Hematemesis - [facility] 06/21/2012 Nickel Rash Can only wear gold earrings Current Medications Current Outpatient Medications on File Prior to Visit Medication Sig amoxicillin-clavulanic acid (AUGMENTIN) 875-125 mg per tablet Take 1 tablet by mouth twice daily. Take 1 tablet every 12 hours HYDROcodone-acetaminophen (NORCO) 5-325 mg per tablet Take 1 tablet by mouth four times daily as needed for pain. Take one tablet every 4 hours as needed for pain fluticasone furoate (ARNUITY ELLIPTA) 100 mcg/actuation inhaler Inhale 1 Puff as instructed once daily. Do a quick inhalation prior to brushing teeth. Then brush teeth, rinse, gargle and spit. cyanocobalamin (VITAMIN B-12) 1,000 mcg tab Take 1 tablet by mouth once daily. solifenacin (VESICARE) 5 mg tablet Take 1 tablet by mouth once daily. buPROPion SR (WELLBUTRIN SR) 150 mg 12 hr tablet Take 1 tablet by mouth once daily. lisinopril-hydroCHLOROthiazide (ZESTORETIC) 20-12.5 mg per tablet Take 2 tablets by mouth once daily. omeprazole (PRILOSEC) 20 mg capsule Take 1 capsule by mouth once daily. verapamil SR (CALAN SR) 180 mg CR tablet Take 1.5 tablets by mouth once daily. sertraline (ZOLOFT) 100 mg tablet Robert (more content not included)... [facility] 07-09-2022 History of Presen t illness Narrative Chief Complaint Patient presents with: Recheck HPI Dianne Holly is a 71 year old female who presents here today for Above Complaints.. Patient presents for ER follow up for I&D from dog bite. Patient was seen in ER on 07/06/2022 for worsening infection in her left hand from dog bite on 07/04. Patient underwent I&D on 07/06/2022 and it was packed. Patient was instructed to follow up today to have packing removed. Past medical history, appointments, medications, allergies reviewed. Previous Medical History PAST MEDICAL HISTORY Diagnosis Date Adenoma of left adrenal gland 12/06/2018 Seen [facility] ER CT 11/28/2018 was stable in size since CT done 11/2015: benign. ADRENAL NODULE 11/17/2007 Anxiety state 11/19/2006 Arthritis Benign neoplasm of colon BPPV (benign paroxysmal positional vertigo) 04/03/2015 Chronic left shoulder pain 09/17/2015 Class 3 severe obesity due to excess calories without serious comorbidity with body mass index (BMI) of 45.0 to 49.9 in adult (HCC) 06/18/2014 DDD (degenerative disc disease), lumbar 01/15/2016 Delayed emergence from general anesthesia Diverticulitis of large intestine without perforation or abscess without bleeding 06/03/2016 Emphysema of lung ([facility]) 06/18/2014 Essential hypertension 11/19/2006 Gastroesophageal reflux disease without esophagitis 11/19/2006 Generalized osteoarthrosis, unspecified site 11/19/2006 Internal hemorrhoids Medicare annual wellness visit, initial 11/23/2017 Medicare Part B: 11/29/2016 last done: 11/16/2018 Mixed hyperlipidemia 03/19/2008 Osteoarthritis of lumbar spine 01/15/2016 Osteoarthritis of multiple joints 11/19/2006 Overactive bladder 01/16/2019 Primary osteoarthritis of right hip 09/21/2016 Primary ovarian failure 11/23/2017 Recurrent major depressive disorder, in remission (HCC) 11/23/2017 Smoker 05/27/2010 Status post right hip replacement 10/01/2017 Venous insufficiency (chronic) (peripheral) 10/16/2014 Vertigo 06/14/2017 Vitamin B12 deficiency 05/26/2021 Previous Surgical History PAST SURGICAL HISTORY Procedure Laterality Date ARTHROSCOPY KNEE DIAGNOSTIC W/WO SYNOVIAL BX SPX 2001 Arthroscopy, knee right ARTHRP ACETBLR/PROX FEM PROSTC AGRFT/ALGRFT Right 06/23/2017 Hip replacement, total BREAST SURGERY HX COLONOSCOPY 07/24/2021 COLONOSCOPY & POLYPECTOMY 06/16/2016 repeat 5 years COLONOSCOPY W/BIOPSY SINGLE/MULTIPLE 04/01/2009 EGD TRANSORAL BIOPSY SINGLE/MULTIPLE 06/22/2012 [facility] Dr Marroquin FRACTURE SURGERY JOINT REPLACEMENT HX LIG/TRNSXJ FLP TUBE ABDL/VAG APPR UNI/BI 1973 Tubal ligation PAST SURGICAL HISTORY OF 1984 ovarian cyst PAST SURGICAL HISTORY OF 2006 right breast removed bonnie. tumor PAST SURGICAL HISTORY OF 05/2008 bilateral eye lid surgery REM LESIO TRUNK,ARM,LEG 1.1 -2.0CM 12/22/2006 Exc. right lower back skin lesion SKIN BIOPSY HX TOTAL ABDOMINAL HYSTERECT W/WO RMVL TUBE OVARY 1987 Hysterectomy, EDWINA - ovaries remain VAGINAL HYSTERECTOMY Family History FAMILY HISTORY Problem Relation Age of Onset Colon Cancer Mother Diabetes Mother rectal cancer/kidney failure Melanoma Father other (obese) Sister hypertension Colon Cancer Sister Breast Cancer Sister 55 triple negative Blood Disease Sister amyloidosis other (obese) Brother Coronary Artery Disease Brother 47 1st AMI Heart Attack Brother other (Liver Issues) Daughter Alcohol/Drug Daughter Patient Allergies ALLERGIES Allergen Reactions Flagyl [Metronidazo* Itching, Other: See Comments nausea/ throat swelling Ibuprofen Vomiting Hematemesis - [facility] 06/21/2012 Nickel Rash Can only wear gold earrings Current Medications Current Outpatient Medications on File Prior to Visit Medication Sig amoxicillin-clavulanic acid (AUGMENTIN) 875-125 mg per tablet Take 1 tablet by mouth twice daily. Take 1 tablet every 12 hours HYDROcodone-acetaminophen (NORCO) 5-325 mg per tablet Take 1 tablet by mouth four times daily as needed for pain. Take one tablet every 4 hours as needed for pain fluticasone furoate (ARNUITY ELLIPTA) 100 mcg/actuation inhaler Inhale 1 Puff as instructed once daily. Do a quick inhalation prior to brushing teeth. Then brush teeth, rinse, gargle and spit. cyanocobalamin (VITAMIN B-12) 1,000 mcg tab Take 1 tablet by mouth once daily. solifenacin (VESICARE) 5 mg tablet Take 1 tablet by mouth once daily. buPROPion SR (WELLBUTRIN SR) 150 mg 12 hr tablet Take 1 tablet by mouth once daily. lisinopril-hydroCHLOROthiazide (ZESTORETIC) 20-12.5 mg per tablet Take 2 tablets by mouth once daily. omeprazole (PRILOSEC) 20 mg capsule Take 1 capsule by mouth once daily. verapamil SR (CALAN SR) 180 mg CR tablet Take 1.5 tablets by mouth once daily. sertraline (ZOLOFT) 100 mg tablet Take 1.5 tablets by mouth every evening. pravastatin (PRAVACHOL) 40 mg tablet Take 1 tablet by mouth daily at bedtime. ondansetron orally disintegrating (ZOFRAN ODT) 4 mg disintegrating tablet Take 1 tablet by mouth every 8 hours as needed. albuterol HFA (PROVENTIL HFA, VENTOLIN HFA) 90 mcg/actuation inhaler Inhale 2 Puffs as instructed every 6 hours as needed. peg 3350-Electrolytes (GOLYTELY) 236-22.74-6.74 -5.86 gram suspension Refer to printed prep instructions from your provider. (Patient not taking: Reported on 12/08/2021) triamcinolone acetonide (KENALOG) 0.1 % cream Apply 1 application to affected area three times daily. Apply sparingly to area for rash/itching. MEDICAL SUPPLY BEDSIDE COMMODE. dx: right total hip replacement. z96.641 COMPOUNDED PRESCRIPTION Bedside Commode Dx: right total hip replacement Z96.641 No current facility-administered medications on file prior to visit. Social History Social History Tobacco Use Smoking status: Every Day Packs/day: 0.80 Years: 50.00 Pack years: 40.00 Types: Cigarettes Start date: 03/01/1967 Smokeless tobacco: Never Tobacco comments: recently cut back to 1/2 ppd Vaping Use Vaping Use: Never used Substance Use Topics Alcohol use: Yes Comment: rare Drug use: No Review of Symptoms REVIEW OF SYSTEMS SEE HPI EXAM: BP 128/76 Pulse 78 Resp 16 Wt 121.6 kg (268 lb) BMI 48.27 kg/m General Appearance: Well appearing, alert, in no acute distress, well-hydrated, well nourished.. Skin: Positives: 3cm open incision to left dorsal hand without warmth or redness. 6cm long packing strip removed, yellow discharge and blood noted. Extremities: Edema: To left hand and fingers, patient reports improvement since initial bite. Health Maintenance List LUNG CANCER SCREENING Never done SHINGRIX VACCINE(1 of 2) Never done DTAP,TDAP,TD(2 - Td or Tdap) due on 05/14/2020 BP CONTROLLED (<130/80) due on 08/13/2021 MAMMOGRAM due on 02/11/2022 ALPHA-1 ANTITRYPSIN DEFICIENCY SCREENING due on 12/08/2022 COVID-19 VACCINE(3 - Booster for Pfizer series) due on 06/16/2023 INFLUENZA(Season Ended) due on 10/30/2022 ANNUAL PCP TEAM CHRONIC DISEASE VISIT due on 07/07/2023 COLORECTAL CANCER SCREENING due on 07/24/2024 DIABETES SCREEN due on 06/16/2025 LIPID SCREEN due on 06/17/2027 BONE DENSITY Completed SPIROMETRY Completed ADVANCE DIRECTIVE DISCUSSION Completed HEPATITIS C SCREENING Completed PNEUMOCOCCAL: 65+ Completed ASSESSMENT/PLAN: 1. Dog bite of left wrist with infection, subsequent encounter - ICD9: V58.89, 881.12, ICD10: S61.552D, L08.9, W54.0XXD - Continue treatment with Augmentin 875 mg Q12hrs - No lymphangetic streaking, this was defined for patient to watch for and to seek medical care immediately if appears - Follow up for recheck in 4 days -Incision packing removed as noted above. Patient tolerated well. Area cleansed with normal saline. 4 cm antibiotic packing strip inserted to wound. Non adherent pad placed to cover wound and gauze wrap applied. Patient reported pain with insertion of packing strip but stated it was tolerable. Allie Lemus APRN.STEPHANI documented in this encounter [facility] 07-07-2022 Miscellaneous Notes Pt called and is notified of providers message and instructions. She voices understanding. Pt reports swelling to hand and finger have gone down, she was told not to unwrap it, she she hasn't looked at the redness. Pt scheduled with Allie Lemus CIRCUIT WALKER on 07/09. Nettie Simms RN Yes we can remove the wick. Sometimes they give patient instructions to remove 1 cm per day until it comes out. If they told her to follow up here, would have her schedule OV. Hopefully the swelling and redness look better today. Pt was seen in office yesterday for a dog bite & was sent to ED. Pt states her abscess was lanced & a wick was placed, she also had labs drawn. Abscessed area is wrapped so pt doesn't know how it looks today although she states the swelling has gone down. Pt is suppose to have the wick removed 2-3 days after it was placed. Is this something our providers do? Pt is taking augmentin as prescribed. Paris Silva LPN documented in this encounter [facility] 07-06-2022 Note HNO ID: [id number] Author: Nehemiah Guzman MD Service: ? Author Type: Physician Type: Progress Notes Filed: 07/07/2022 8:08 AM Note Text: Chief Complaint Patient presents with: ED Follow-up HPI Dianne Holly is a 71 year old female who presents here today for ER Follow Up.. Accompanied today by daughter. Patient referred back to [facility] ED on 07/[address] Raya for dog bite that was not healing on Augmentin. Bitten on 06/28. Given dose of IV unasyn and had IANDD of wound. CBC and CMP unremarkable. Blood cultures obtained. Tetanus shot updated in the ED. Discharged home with Augmentin BID, [place], and zofran. Patient states that since discharge, she has worsening redness and swelling over her left wrist and hand compared to 2 days ago. Taking abx as prescribed without side effects. Wound has stopped draining significantly from the IANDD. Cites low grade fever of 99.4. Blood cultures showing no growth in 48 hours. Past medical history, appointments, medications, allergies reviewed. Previous Medical History PAST MEDICAL HISTORY Diagnosis Date Adenoma of left adrenal gland 12/06/2018 Seen [facility] ER CT 11/28/2018 was stable in size since CT done 11/2015: benign. ADRENAL NODULE 11/17/2007 Anxiety state 11/19/2006 Arthritis Benign neoplasm of colon BPPV (benign paroxysmal positional vertigo) 04/03/2015 Chronic left shoulder pain 09/17/2015 Class 3 severe obesity due to excess calories without serious comorbidity with body mass index (BMI) of 45.0 to 49.9 in adult ([facility]) 06/18/2014 DDD (degenerative disc disease), lumbar 01/15/2016 Delayed emergence from general anesthesia Diverticulitis of large intestine without perforation or abscess without bleeding 06/03/2016 Emphysema of lung ([facility]) 06/18/2014 Essential hypertension 11/19/2006 Gastroesophageal reflux disease without esophagitis 11/19/2006 Generalized osteoarthrosis, unspecified site 11/19/2006 Internal hemorrhoids Medicare annual wellness visit, initial 11/23/2017 Medicare Part B: 11/29/2016 last done: 11/16/2018 Mixed hyperlipidemia 03/19/2008 Osteoarthritis of lumbar spine 01/15/2016 Osteoarthritis of multiple joints 11/19/2006 Overactive bladder 01/16/2019 Primary osteoarthritis of right hip 09/21/2016 Primary ovarian failure 11/23/2017 Recurrent major depressive disorder, in remission ([facility]) 11/23/2017 Smoker 05/27/2010 Status post right hip replacement 10/01/2017 Venous insufficiency (chronic) (peripheral) 10/16/2014 Vertigo 06/14/2017 Vitamin B12 deficiency 05/26/2021 Previous Surgical History PAST SURGICAL HISTORY Procedure Laterality Date ARTHROSCOPY KNEE DIAGNOSTIC W/WO SYNOVIAL BX SPX 2001 Arthroscopy, knee right ARTHRP ACETBLR/PROX FEM PROSTC AGRFT/ALGRFT Right 06/23/2017 Hip replacement, total BREAST SURGERY HX COLONOSCOPY 07/24/2021 COLONOSCOPY AND POLYPECTOMY 06/16/2016 repeat 5 years COLONOSCOPY W/BIOPSY SINGLE/MULTIPLE 04/01/2009 EGD TRANSORAL BIOPSY SINGLE/MULTIPLE 06/22/2012 [facility] Dr Marroquin FRACTURE SURGERY JOINT REPLACEMENT HX LIG/TRNSXJ FLP TUBE ABDL/VAG APPR UNI/BI 1973 Tubal ligation PAST SURGICAL HISTORY OF 1984 ovarian cyst PAST SURGICAL HISTORY OF 2006 right breast removed bonnie. tumor PAST SURGICAL HISTORY OF 05/2008 bilateral eye lid surgery REM LESIO TRUNK,ARM,LEG 1.1 -2.0CM 12/22/2006 Exc. right lower back skin lesion SKIN BIOPSY HX TOTAL ABDOMINAL HYSTERECT W/WO RMVL TUBE OVARY 1987 Hysterectomy, EDWINA - ovaries remain VAGINAL HYSTERECTOMY Family History FAMILY HISTORY Problem Relation Age of Onset Colon Cancer Mother Diabetes Mother rectal cancer/kidney failure Melanoma Father other (obese) Sister hypertension Colon Cancer Sister Breast Cancer Sister 55 triple negative Blood Disease Sister amyloidosis other (obese) Brother Coronary Artery Disease Brother 47 1st AMI Heart Attack Brother other (Liver Issues) Daughter Alcohol/Drug Daughter Patient Allergies ALLERGIES Allergen Reactions Flagyl [Metronidazo* Itching, Other: See Comments nausea/ throat swelling Ibuprofen Vomiting Hematemesis - [facility] 06/21/2012 Nickel Rash Can only wear gold earrings Current Medications Current Outpatient Medications on File Prior to Visit Medication Sig fluticasone furoate (ARNUITY ELLIPTA) 100 mcg/actuation inhaler Inhale 1 Puff as instructed once daily. Do a quick inhalation prior to brushing teeth. Then brush teeth, rinse, gargle and spit. cyanocobalamin (VITAMIN B-12) 1,000 mcg tab Take 1 tablet by mouth once daily. solifenacin (VESICARE) 5 mg tablet Take 1 tablet by mouth once daily. buPROPion SR (WELLBUTRIN SR) 150 mg 12 hr tablet Take 1 tablet by mouth once daily. lisinopril-hydroCHLOROthiazide (ZESTORETIC) 20-12.5 mg per tablet Take 2 tablets by mouth once daily. omeprazole (PRILOSEC) 20 mg capsule Take 1 capsule by mouth once daily. verapamil SR (CALAN SR) 180 mg CR tablet Take 1.5 table (more content not included)... [facility] 07-06-2022 History of Presen t illness Narrative Chief Complaint Patient presents with: ED Follow-up HPI Dianne Holly is a 71 year old female who presents here today for ER Follow Up.. Accompanied today by daughter. Patient referred back to [facility] ED on 07/[address] Raya for dog bite that was not healing on Augmentin. Bitten on 06/28. Given dose of IV unasyn and had I&D of wound. CBC and CMP unremarkable. Blood cultures obtained. Tetanus shot updated in the ED. Discharged home with Augmentin BID, [place], and zofran. Patient states that since discharge, she has worsening redness and swelling over her left wrist and hand compared to 2 days ago. Taking abx as prescribed without side effects. Wound has stopped draining significantly from the I&D. Cites low grade fever of 99.4. Blood cultures showing no growth in 48 hours. Past medical history, appointments, medications, allergies reviewed. Previous Medical History PAST MEDICAL HISTORY Diagnosis Date Adenoma of left adrenal gland 12/06/2018 Seen [facility] ER CT 11/28/2018 was stable in size since CT done 11/2015: benign. ADRENAL NODULE 11/17/2007 Anxiety state 11/19/2006 Arthritis Benign neoplasm of colon BPPV (benign paroxysmal positional vertigo) 04/03/2015 Chronic left shoulder pain 09/17/2015 Class 3 severe obesity due to excess calories without serious comorbidity with body mass index (BMI) of 45.0 to 49.9 in adult ([facility]) 06/18/2014 DDD (degenerative disc disease), lumbar 01/15/2016 Delayed emergence from general anesthesia Diverticulitis of large intestine without perforation or abscess without bleeding 06/03/2016 Emphysema of lung ([facility]) 06/18/2014 Essential hypertension 11/19/2006 Gastroesophageal reflux disease without esophagitis 11/19/2006 Generalized osteoarthrosis, unspecified site 11/19/2006 Internal hemorrhoids Medicare annual wellness visit, initial 11/23/2017 Medicare Part B: 11/29/2016 last done: 11/16/2018 Mixed hyperlipidemia 03/19/2008 Osteoarthritis of lumbar spine 01/15/2016 Osteoarthritis of multiple joints 11/19/2006 Overactive bladder 01/16/2019 Primary osteoarthritis of right hip 09/21/2016 Primary ovarian failure 11/23/2017 Recurrent major depressive disorder, in remission (HCC) 11/23/2017 Smoker 05/27/2010 Status post right hip replacement 10/01/2017 Venous insufficiency (chronic) (peripheral) 10/16/2014 Vertigo 06/14/2017 Vitamin B12 deficiency 05/26/2021 Previous Surgical History PAST SURGICAL HISTORY Procedure Laterality Date ARTHROSCOPY KNEE DIAGNOSTIC W/WO SYNOVIAL BX SPX 2001 Arthroscopy, knee right ARTHRP ACETBLR/PROX FEM PROSTC AGRFT/ALGRFT Right 06/23/2017 Hip replacement, total BREAST SURGERY HX COLONOSCOPY 07/24/2021 COLONOSCOPY & POLYPECTOMY 06/16/2016 repeat 5 years COLONOSCOPY W/BIOPSY SINGLE/MULTIPLE 04/01/2009 EGD TRANSORAL BIOPSY SINGLE/MULTIPLE 06/22/2012 [facility] Dr Marroquin FRACTURE SURGERY JOINT REPLACEMENT HX LIG/TRNSXJ FLP TUBE ABDL/VAG APPR UNI/BI 1973 Tubal ligation PAST SURGICAL HISTORY OF 1984 ovarian cyst PAST SURGICAL HISTORY OF 2006 right breast removed bonnie. tumor PAST SURGICAL HISTORY OF 05/2008 bilateral eye lid surgery REM LESIO TRUNK,ARM,LEG 1.1 -2.0CM 12/22/2006 Exc. right lower back skin lesion SKIN BIOPSY HX TOTAL ABDOMINAL HYSTERECT W/WO RMVL TUBE OVARY 1987 Hysterectomy, EDWINA - ovaries remain VAGINAL HYSTERECTOMY Family History FAMILY HISTORY Problem Relation Age of Onset Colon Cancer Mother Diabetes Mother rectal cancer/kidney failure Melanoma Father other (obese) Sister hypertension Colon Cancer Sister Breast Cancer Sister 55 triple negative Blood Disease Sister amyloidosis other (obese) Brother Coronary Artery Disease Brother 47 1st AMI Heart Attack Brother other (Liver Issues) Daughter Alcohol/Drug Daughter Patient Allergies ALLERGIES Allergen Reactions Flagyl [Metronidazo* Itching, Other: See Comments nausea/ throat swelling Ibuprofen Vomiting Hematemesis - [facility] 06/21/2012 Nickel Rash Can only wear gold earrings Current Medications Current Outpatient Medications on File Prior to Visit Medication Sig fluticasone furoate (ARNUITY ELLIPTA) 100 mcg/actuation inhaler Inhale 1 Puff as instructed once daily. Do a quick inhalation prior to brushing teeth. Then brush teeth, rinse, gargle and spit. cyanocobalamin (VITAMIN B-12) 1,000 mcg tab Take 1 tablet by mouth once daily. solifenacin (VESICARE) 5 mg tablet Take 1 tablet by mouth once daily. buPROPion SR (WELLBUTRIN SR) 150 mg 12 hr tablet Take 1 tablet by mouth once daily. lisinopril-hydroCHLOROthiazide (ZESTORETIC) 20-12.5 mg per tablet Take 2 tablets by mouth once daily. omeprazole (PRILOSEC) 20 mg capsule Take 1 capsule by mouth once daily. verapamil SR (CALAN SR) 180 mg CR tablet Take 1.5 tablets by mouth once daily. sertraline (ZOLOFT) 100 mg tablet Take 1.5 tablets by mouth every evening. pravastatin (PRAVACHOL) 40 mg tablet Take 1 tablet by mouth daily at bedtime. ondansetron orally disintegrating (ZOFRAN ODT) 4 mg disintegrating tablet Take 1 tablet by mouth every 8 hours as needed. albuterol HFA (PROVENTIL HFA, VENTOLIN HFA) 90 mcg/actuation inhaler Inhale 2 Puffs as instructed every 6 hours as needed. peg 3350-Electrolytes (GOLYTELY) 236-22.74-6.74 -5.86 gram suspension Refer to printed prep instructions from your provider. (Patient not taking: Reported on 12/08/2021) triamcinolone acetonide (KENALOG) 0.1 % cream Apply 1 application to affected area three times daily. Apply sparingly to area for rash/itching. MEDICAL SUPPLY BEDSIDE COMMODE. dx: right total hip replacement. z96.641 COMPOUNDED PRESCRIPTION Bedside Commode Dx: right total hip replacement Z96.641 No current facility-administered medications on file prior to visit. Social History Social History Tobacco Use Smoking status: Every Day Packs/day: 0.80 Years: 50.00 Pack years: 40.00 Types: Cigarettes Start date: 03/01/1967 Smokeless tobacco: Never Tobacco comments: recently cut back to 03/02 ppd Vaping Use Vaping Use: Never used Substance Use Topics Alcohol use: Yes Comment: rare Drug use: No Review of Symptoms REVIEW OF SYSTEMS See HPI EXAM: BP 132/86 (BP Site: Right Arm, BP Position: Sitting, BP Cuff Size: Large Adult) Pulse 76 Temp 37.4 C (99.4 F) (Tympanic) Resp 18 Wt 123.4 kg (272 lb) SpO2 96% BMI 48.99 kg/m General Appearance: Ill appearing, non toxic. Skin: Patient has significant redness and swelling over dorsum of left wrist which is TTP and warm to touch without active drainage. Musculoskeletal: Limited ROM to wrist and hand due to pain. . Health Maintenance List LUNG CANCER SCREENING Never done SHINGRIX VACCINE(1 of 2) Never done DTAP,TDAP,TD(2 - Td or Tdap) due on 05/14/2020 MAMMOGRAM due on 02/11/2022 ALPHA-1 ANTITRYPSIN DEFICIENCY SCREENING due on 12/08/2022 COVID-19 VACCINE(3 - Booster for Pfizer series) due on 06/16/2023 INFLUENZA(Season Ended) due on 10/30/2022 ANNUAL PCP TEAM CHRONIC DISEASE VISIT due on 07/05/2023 BP CONTROLLED (<130/80) due on 07/05/2023 COLORECTAL CANCER SCREENING due on 07/24/2024 DIABETES SCREEN due on 06/16/2025 LIPID SCREEN due on 06/17/2027 BONE DENSITY Completed SPIROMETRY Completed ADVANCE DIRECTIVE DISCUSSION Completed HEPATITIS C SCREENING Completed PNEUMOCOCCAL: 65+ Completed ASSESSMENT/PLAN: 1. Dog bite of left wrist with infection, subsequent encounter - ICD9: V58.89, 881.12, ICD10: S61.552D, L08.9, W54.0XXD (primary diagnosis) Despite I&D patient continues to worsen. Recommending she return to the ED for IV abx and admision. Called and spoke to Dr. Adan Werner who saw her 2 days ago and discussed she will need admission, IV abx, and possibly ortho hand consult for debridement. He was agreeable to this over the phone. Discussed risks of worsening infection with patient including sepsis, loss of use of hand or even amputation if this does not get treated quickly. Daughter will drive her now to the ED. 2. Abscess - ICD9: 682.9, ICD10: L02.91 See above. Nehemiah Guzman MD documented in this encounter [facility] 07-04-2022 Note HNO ID: [id number] Author: Yan Raya MD Service: ? Author Type: Physician Type: Progress Notes Filed: 07/04/2022 10:44 AM Note Text: Patient presents with: Follow Up: ER follow up for dog bite HPI: Patient presents today for office visit for ER follow up. Seen at [facility] ER on 07/01. Had dog bite by her dog three days before that. She declined tetanus until seen by us. Was given dose of IV unasyn and then placed on augmentin. Is looking worse. Wrist is more warm and red and now with a lump on the wrist. Pain is not well controlled. Has been icing her wrist. Hand is getting more swollen. Fingers now swollen an red. MEDICATIONS: Current Outpatient Medications Medication Sig fluticasone furoate (ARNUITY ELLIPTA) 100 mcg/actuation inhaler Inhale 1 Puff as instructed once daily. Do a quick inhalation prior to brushing teeth. Then brush teeth, rinse, gargle and spit. cyanocobalamin (VITAMIN B-12) 1,000 mcg tab Take 1 tablet by mouth once daily. solifenacin (VESICARE) 5 mg tablet Take 1 tablet by mouth once daily. buPROPion SR (WELLBUTRIN SR) 150 mg 12 hr tablet Take 1 tablet by mouth once daily. lisinopril-hydroCHLOROthiazide (ZESTORETIC) 20-12.5 mg per tablet Take 2 tablets by mouth once daily. omeprazole (PRILOSEC) 20 mg capsule Take 1 capsule by mouth once daily. verapamil SR (CALAN SR) 180 mg CR tablet Take 1.5 tablets by mouth once daily. sertraline (ZOLOFT) 100 mg tablet Take 1.5 tablets by mouth every evening. pravastatin (PRAVACHOL) 40 mg tablet Take 1 tablet by mouth daily at bedtime. ondansetron orally disintegrating (ZOFRAN ODT) 4 mg disintegrating tablet Take 1 tablet by mouth every 8 hours as needed. albuterol HFA (PROVENTIL HFA, VENTOLIN HFA) 90 mcg/actuation inhaler Inhale 2 Puffs as instructed every 6 hours as needed. triamcinolone acetonide (KENALOG) 0.1 % cream Apply 1 application to affected area three times daily. Apply sparingly to area for rash/itching. COMPOUNDED PRESCRIPTION Bedside Commode Dx: right total hip replacement Z96.641 peg 3350-Electrolytes (GOLYTELY) 236-22.74-6.74 -5.86 gram suspension Refer to printed prep instructions from your provider. (Patient not taking: Reported on 12/08/2021) MEDICAL SUPPLY BEDSIDE COMMODE. dx: right total hip replacement. z96.641 No current facility-administered medications for this visit. ALLERGIES: ALLERGIES Allergen Reactions Flagyl [Metronidazo* Itching, Other: See Comments nausea/ throat swelling Ibuprofen Vomiting Hematemesis - [facility] 06/21/2012 Nickel Rash Can only wear gold earrings PAST MEDICAL HISTORY Diagnosis Date Adenoma of left adrenal gland 12/06/2018 Seen [facility] ER CT 11/28/2018 was stable in size since CT done 11/2015: benign. ADRENAL NODULE 11/17/2007 Anxiety state 11/19/2006 Arthritis Benign neoplasm of colon BPPV (benign paroxysmal positional vertigo) 04/03/2015 Chronic left shoulder pain 09/17/2015 Class 3 severe obesity due to excess calories without serious comorbidity with body mass index (BMI) of 45.0 to 49.9 in adult ([facility]) 06/18/2014 DDD (degenerative disc disease), lumbar 01/15/2016 Delayed emergence from general anesthesia Diverticulitis of large intestine without perforation or abscess without bleeding 06/03/2016 Emphysema of lung ([facility]) 06/18/2014 Essential hypertension 11/19/2006 Gastroesophageal reflux disease without esophagitis 11/19/2006 Generalized osteoarthrosis, unspecified site 11/19/2006 Internal hemorrhoids Medicare annual wellness visit, initial 11/23/2017 Medicare Part B: 11/29/2016 last done: 11/16/2018 Mixed hyperlipidemia 03/19/2008 Osteoarthritis of lumbar spine 01/15/2016 Osteoarthritis of multiple joints 11/19/2006 Overactive bladder 01/16/2019 Primary osteoarthritis of right hip 09/21/2016 Primary ovarian failure 11/23/2017 Recurrent major depressive disorder, in remission ([facility]) 11/23/2017 Smoker 05/27/2010 Status post right hip replacement 10/01/2017 Venous insufficiency (chronic) (peripheral) 10/16/2014 Vertigo 06/14/2017 Vitamin B12 deficiency 05/26/2021 PAST SURGICAL HISTORY Procedure Laterality Date ARTHROSCOPY KNEE DIAGNOSTIC W/WO SYNOVIAL BX SPX 2001 Arthroscopy, knee right ARTHRP ACETBLR/PROX FEM PROSTC AGRFT/ALGRFT Right 06/23/2017 Hip replacement, total BREAST SURGERY HX COLONOSCOPY 07/24/2021 COLONOSCOPY AND POLYPECTOMY 06/16/2016 repeat 5 years COLONOSCOPY W/BIOPSY SINGLE/MULTIPLE 04/01/2009 EGD TRANSORAL BIOPSY SINGLE/MULTIPLE 06/22/2012 [facility] Dr Marroquin FRACTURE SURGERY JOINT REPLACEMENT HX LIG/TRNSXJ FLP TUBE ABDL/VAG APPR UNI/BI 1973 Tubal ligation PAST SURGICAL HISTORY OF 1984 ovarian cyst PAST SURGICAL HISTORY OF 2006 right breast removed bonnie. tumor PAST SURGICAL HISTORY OF 05/2008 bilateral eye lid surgery REM LESIO TRUNK,ARM,LEG 1.1 -2.0CM 12/22/2006 Exc. right lower back skin lesion SKIN BIOPSY HX TOTAL ABDOMINAL HYSTERECT W/WO RMVL TUBE OVARY 1987 Hysterect (more content not included)... [facility] 07-04-2022 History of Presen t illness Narrative Patient presents with: Follow Up: ER follow up for dog bite HPI: Patient presents today for office visit for ER follow up. Seen at [facility] ER on 07/01. Had dog bite by her dog three days before that. She declined tetanus until seen by us. Was given dose of IV unasyn and then placed on augmentin. Is looking worse. Wrist is more warm and red and now with a lump on the wrist. Pain is not well controlled. Has been icing her wrist. Hand is getting more swollen. Fingers now swollen an red. MEDICATIONS: Current Outpatient Medications Medication Sig fluticasone furoate (ARNUITY ELLIPTA) 100 mcg/actuation inhaler Inhale 1 Puff as instructed once daily. Do a quick inhalation prior to brushing teeth. Then brush teeth, rinse, gargle and spit. cyanocobalamin (VITAMIN B-12) 1,000 mcg tab Take 1 tablet by mouth once daily. solifenacin (VESICARE) 5 mg tablet Take 1 tablet by mouth once daily. buPROPion SR (WELLBUTRIN SR) 150 mg 12 hr tablet Take 1 tablet by mouth once daily. lisinopril-hydroCHLOROthiazide (ZESTORETIC) 20-12.5 mg per tablet Take 2 tablets by mouth once daily. omeprazole (PRILOSEC) 20 mg capsule Take 1 capsule by mouth once daily. verapamil SR (CALAN SR) 180 mg CR tablet Take 1.5 tablets by mouth once daily. sertraline (ZOLOFT) 100 mg tablet Take 1.5 tablets by mouth every evening. pravastatin (PRAVACHOL) 40 mg tablet Take 1 tablet by mouth daily at bedtime. ondansetron orally disintegrating (ZOFRAN ODT) 4 mg disintegrating tablet Take 1 tablet by mouth every 8 hours as needed. albuterol HFA (PROVENTIL HFA, VENTOLIN HFA) 90 mcg/actuation inhaler Inhale 2 Puffs as instructed every 6 hours as needed. triamcinolone acetonide (KENALOG) 0.1 % cream Apply 1 application to affected area three times daily. Apply sparingly to area for rash/itching. COMPOUNDED PRESCRIPTION Bedside Commode Dx: right total hip replacement Z96.641 peg 3350-Electrolytes (GOLYTELY) 236-22.74-6.74 -5.86 gram suspension Refer to printed prep instructions from your provider. (Patient not taking: Reported on 12/08/2021) MEDICAL SUPPLY BEDSIDE COMMODE. dx: right total hip replacement. z96.641 No current facility-administered medications for this visit. ALLERGIES: ALLERGIES Allergen Reactions Flagyl [Metronidazo* Itching, Other: See Comments nausea/ throat swelling Ibuprofen Vomiting Hematemesis - [facility] 06/21/2012 Nickel Rash Can only wear gold earrings PAST MEDICAL HISTORY Diagnosis Date Adenoma of left adrenal gland 12/06/2018 Seen [facility] ER CT 11/28/2018 was stable in size since CT done 11/2015: benign. ADRENAL NODULE 11/17/2007 Anxiety state 11/19/2006 Arthritis Benign neoplasm of colon BPPV (benign paroxysmal positional vertigo) 04/03/2015 Chronic left shoulder pain 09/17/2015 Class 3 severe obesity due to excess calories without serious comorbidity with body mass index (BMI) of 45.0 to 49.9 in adult ([facility]) 06/18/2014 DDD (degenerative disc disease), lumbar 01/15/2016 Delayed emergence from general anesthesia Diverticulitis of large intestine without perforation or abscess without bleeding 06/03/2016 Emphysema of lung ([facility]) 06/18/2014 Essential hypertension 11/19/2006 Gastroesophageal reflux disease without esophagitis 11/19/2006 Generalized osteoarthrosis, unspecified site 11/19/2006 Internal hemorrhoids Medicare annual wellness visit, initial 11/23/2017 Medicare Part B: 11/29/2016 last done: 11/16/2018 Mixed hyperlipidemia 03/19/2008 Osteoarthritis of lumbar spine 01/15/2016 Osteoarthritis of multiple joints 11/19/2006 Overactive bladder 01/16/2019 Primary osteoarthritis of right hip 09/21/2016 Primary ovarian failure 11/23/2017 Recurrent major depressive disorder, in remission (HCC) 11/23/2017 Smoker 05/27/2010 Status post right hip replacement 10/01/2017 Venous insufficiency (chronic) (peripheral) 10/16/2014 Vertigo 06/14/2017 Vitamin B12 deficiency 05/26/2021 PAST SURGICAL HISTORY Procedure Laterality Date ARTHROSCOPY KNEE DIAGNOSTIC W/WO SYNOVIAL BX SPX 2001 Arthroscopy, knee right ARTHRP ACETBLR/PROX FEM PROSTC AGRFT/ALGRFT Right 06/23/2017 Hip replacement, total BREAST SURGERY HX COLONOSCOPY 07/24/2021 COLONOSCOPY & POLYPECTOMY 06/16/2016 repeat 5 years COLONOSCOPY W/BIOPSY SINGLE/MULTIPLE 04/01/2009 EGD TRANSORAL BIOPSY SINGLE/MULTIPLE 06/22/2012 [facility] Dr Marroquin FRACTURE SURGERY JOINT REPLACEMENT HX LIG/TRNSXJ FLP TUBE ABDL/VAG APPR UNI/BI 1973 Tubal ligation PAST SURGICAL HISTORY OF 1984 ovarian cyst PAST SURGICAL HISTORY OF 2006 right breast removed bonnie. tumor PAST SURGICAL HISTORY OF 05/2008 bilateral eye lid surgery REM LESIO TRUNK,ARM,LEG 1.1 -2.0CM 12/22/2006 Exc. right lower back skin lesion SKIN BIOPSY HX TOTAL ABDOMINAL HYSTERECT W/WO RMVL TUBE OVARY 1987 Hysterectomy, EDWINA - ovaries remain VAGINAL HYSTERECTOMY FAMILY HISTORY Problem Relation Age of Onset Colon Cancer Mother Diabetes Mother rectal cancer/kidney failure Melanoma Father other (obese) Sister hypertension Colon Cancer Sister Breast Cancer Sister 55 triple negative Blood Disease Sister amyloidosis other (obese) Brother Coronary Artery Disease Brother 47 1st AMI Heart Attack Brother other (Liver Issues) Daughter Alcohol/Drug Daughter Social History Tobacco Use Smoking status: Every Day Packs/day: 0.80 Years: 50.00 Pack years: 40.00 Types: Cigarettes Start date: 03/01/1967 Smokeless tobacco: Never Tobacco comments: recently cut back to 03/02 ppd Vaping Use Vaping Use: Never used Substance Use Topics Alcohol use: Yes Comment: rare Drug use: No Reviewed current medications, allergies, past medical history, surgical history, family history and social history today. REVIEW OF SYSTEMS All other reviewed and negative other than HPI. VITALS: BP 120/68 Pulse 74 Resp 16 Wt 121.6 kg (268 lb) SpO2 94% BMI 48.27 kg/m Last 4 Encounter Wt Readings: Date: Wt: 07/04/2022 121.6 kg (268 lb) 06/26/2022 119.7 kg (264 lb) 06/24/2022 120.2 kg (265 lb) 06/15/2022 120.2 kg (265 lb) PHYSICAL EXAMINATION: General appearance: Well appearing, alert, in no acute distress, well-hydrated, well nourished. Skin: area on wrist shows marked redness and swelling. Painful to touch. Is worse per patient. Extremities: swelling extending into her hand. Musculoskeletal: No joint swelling, deformity, or tenderness Peripheral pulses: Normal Neuro: negative. ASSESSMENT/PLAN: 1. Cellulitis of skin - ICD9: 682.9, ICD10: L03.90 (primary diagnosis) - failed outpatient treatment. Back to ER. Reminded her to get tdap. ER passport placed for hand off to [facility] ER 2. Dog bite, subsequent encounter - ICD9: V58.89, 879.8, ICD10: W54.0XXD Yan Raya MD documented in this encounter [facility] 06-30-2022 Miscellaneous Notes The following approved medication requests have been transmitted electronically. Requested Prescriptions Signed Prescriptions Disp Refills fluticasone furoate (ARNUITY ELLIPTA) 100 mcg/actuation inhaler 1 Each 5 Sig: Inhale 1 Puff as instructed once daily. Do a quick inhalation prior to brushing teeth. Then brush teeth, rinse, gargle and spit. Authorizing Provider: DEWAYNE CHUNG MD Patient was notified and was not using Arnuity Ellipta till after office appointment decided to restart. Since restarting advised cough has subsided and feels better. Patient aware she needs to stay on this for control of symptoms and refills will be sent. Please send pended rx to [facility] Let patient know her breathing test shows mild emphysema/COPD. She if she is taking her Arnuity Ellipta inhaler one puff daily. Her last script was 12/08/2021 for 4 months and should of needed a new refill as of early Feb. Not taking this daily could explain why she has the persistent cough. documented in this encounter [facility] 06-26-2022 Note HNO ID: [id number] Author: DWAINE Rodriguez Service: ? Author Type: Respiratory Therapist Type: Progress Notes Filed: 06/26/2022 1:28 PM Note Text: PULM FUNCTION SMARTBLOCK: Provider: Dewayne Chung MD Assisting Tech: DWAINE Rodriguez Spirometry w/BD: 1 [facility] 06-26-2022 History of Presen t illness Narrative PULM FUNCTION SMARTBLOCK: Provider: Dewayne Chung MD Assisting Tech: DWAINE Rodriguez Spirometry w/BD: 1 documented in this encounter [facility] 06-24-2022 Note HNO ID: [id number] Author: Dorian Kern APRN.SHEET HEATER Service: ? Author Type: Nurse Practitioner Type: Progress Notes Filed: 06/24/2022 3:00 PM Note Text: LUNG SCREENING VISIT PRIMARY CARE PHYSICIAN: Dewayne Chung MD PULMONARY PROVIDER: None Results will be communicated via letter or electronic record if applicable. Visit Delivery: In Person Patient Visit Type: New to Screening Current or Ex-smoker? [Current Exam Type: baseline LDCT Number of Pack Years: 39 Current smoker (=0) REQUESTER: The referring provider advised the patient to have screening. HISTORY OF PRESENT ILLNESS: Dianne Holly is a 71 year old Active smoker who presents for lung screening. Has had right breast tumors removed-benign. Respiratory symptoms include: SOB: Yes, with walking for a long distance, or stairs sometimes Chest tightness: Yes, associated with the cough Coughing: Yes: With mucus White, worse at night Hemoptysis: No Wheezing: Yes, sometimes Fever/Chills: No Recent Respiratory Infection: No Unintentional weight loss: No Last 6 Encounter Wt Readings: Date: Wt: 06/24/2022 120.2 kg (265 lb) 06/15/2022 120.2 kg (265 lb) 01/06/2022 118.8 kg (262 lb) 12/08/2021 116.6 kg (257 lb) 09/16/2021 118.5 kg (261 lb 3.2 oz) 06/30/2021 119.3 kg (263 lb) ECOG PERFORMANCE STATUS: 0- Fully active, able to carry on all pre-disease performance w/o restriction. Modified Medical Research [place] Dyspnea Scale (MMRC) I only get breathless with strenous exercise 0 PAST MEDICAL HISTORY Diagnosis Date Adenoma of left adrenal gland 12/06/2018 Seen [facility] ER CT 11/28/2018 was stable in size since CT done 11/2015: benign. ADRENAL NODULE 11/17/2007 Anxiety state 11/19/2006 Arthritis Benign neoplasm of colon BPPV (benign paroxysmal positional vertigo) 04/03/2015 Chronic left shoulder pain 09/17/2015 Class 3 severe obesity due to excess calories without serious comorbidity with body mass index (BMI) of 45.0 to 49.9 in adult ([facility]) 06/18/2014 DDD (degenerative disc disease), lumbar 01/15/2016 Delayed emergence from general anesthesia Diverticulitis of large intestine without perforation or abscess without bleeding 06/03/2016 Emphysema of lung ([facility]) 06/18/2014 Essential hypertension 11/19/2006 Gastroesophageal reflux disease without esophagitis 11/19/2006 Generalized osteoarthrosis, unspecified site 11/19/2006 Internal hemorrhoids Medicare annual wellness visit, initial 11/23/2017 Medicare Part B: 11/29/2016 last done: 11/16/2018 Mixed hyperlipidemia 03/19/2008 Osteoarthritis of lumbar spine 01/15/2016 Osteoarthritis of multiple joints 11/19/2006 Overactive bladder 01/16/2019 Primary osteoarthritis of right hip 09/21/2016 Primary ovarian failure 11/23/2017 Recurrent major depressive disorder, in remission (HCC) 11/23/2017 Smoker 05/27/2010 Status post right hip replacement 10/01/2017 Venous insufficiency (chronic) (peripheral) 10/16/2014 Vertigo 06/14/2017 Vitamin B12 deficiency 05/26/2021 PAST SURGICAL HISTORY Procedure Laterality Date ARTHROSCOPY KNEE DIAGNOSTIC W/WO SYNOVIAL BX SPX 2001 Arthroscopy, knee right ARTHRP ACETBLR/PROX FEM PROSTC AGRFT/ALGRFT Right 06/23/2017 Hip replacement, total BREAST SURGERY HX COLONOSCOPY 07/24/2021 COLONOSCOPY AND POLYPECTOMY 06/16/2016 repeat 5 years COLONOSCOPY W/BIOPSY SINGLE/MULTIPLE 04/01/2009 EGD TRANSORAL BIOPSY SINGLE/MULTIPLE 06/22/2012 [facility] Dr Marroquin FRACTURE SURGERY JOINT REPLACEMENT HX LIG/TRNSXJ FLP TUBE ABDL/VAG APPR UNI/BI 1973 Tubal ligation PAST SURGICAL HISTORY OF 1984 ovarian cyst PAST SURGICAL HISTORY OF 2006 right breast removed bonnie. tumor PAST SURGICAL HISTORY OF 05/2008 bilateral eye lid surgery REM LESIO TRUNK,ARM,LEG 1.1 -2.0CM 12/22/2006 Exc. right lower back skin lesion SKIN BIOPSY HX TOTAL ABDOMINAL HYSTERECT W/WO RMVL TUBE OVARY 1987 Hysterectomy, EDWINA - ovaries remain VAGINAL HYSTERECTOMY FAMILY HISTORY Problem Relation Age of Onset Colon Cancer Mother Diabetes Mother rectal cancer/kidney failure Melanoma Father other (obese) Sister hypertension Colon Cancer Sister Breast Cancer Sister 55 triple negative Blood Disease Sister amyloidosis other (obese) Brother Coronary Artery Disease Brother 47 1st AMI Heart Attack Brother other (Liver Issues) Daughter Alcohol/Drug Daughter cyanocobalamin (VITAMIN B-12) 1,000 mcg tab Take 1 tablet by mouth once daily. solifenacin (VESICARE) 5 mg tablet Take 1 tablet by mouth once daily. buPROPion SR (WELLBUTRIN SR) 150 mg 12 hr tablet Take 1 tablet by mouth once daily. lisinopril-hydroCHLOROthiazide (ZESTORETIC) 20-12.5 mg per tablet Take 2 tablets by mouth once daily. omeprazole (PRILOSEC) 20 mg capsule Take 1 capsule by mouth once daily. verapamil SR (CALAN SR) 180 mg CR tablet Take 1.5 tablets by mouth once daily. sertraline (ZOLOFT) 100 mg tablet Take 1.5 tablets by mouth every ev (more content not included)... [facility] 06-24-2022 History of Presen t illness Narrative Images from the original note were not included. LUNG SCREENING VISIT PRIMARY CARE PHYSICIAN: Dewayne Chung MD PULMONARY PROVIDER: None Results will be communicated via letter or electronic record if applicable. Visit Delivery: In Person Patient Visit Type: New to Screening Current or Ex-smoker? [Current Exam Type: baseline LDCT Number of Pack Years: 39 Current smoker (=0) REQUESTER: The referring provider advised the patient to have screening. HISTORY OF PRESENT ILLNESS: Dianne Holly is a 71 year old Active smoker who presents for lung screening. Has had right breast tumors removed-benign. Respiratory symptoms include: SOB: Yes, with walking for a long distance, or stairs sometimes Chest tightness: Yes, associated with the cough Coughing: Yes: With mucus White, worse at night Hemoptysis: No Wheezing: Yes, sometimes Fever/Chills: No Recent Respiratory Infection: No Unintentional weight loss: No Last 6 Encounter Wt Readings: Date: Wt: 06/24/2022 120.2 kg (265 lb) 06/15/2022 120.2 kg (265 lb) 01/06/2022 118.8 kg (262 lb) 12/08/2021 116.6 kg (257 lb) 09/16/2021 118.5 kg (261 lb 3.2 oz) 06/30/2021 119.3 kg (263 lb) ECOG PERFORMANCE STATUS: 0- Fully active, able to carry on all pre-disease performance w/o restriction. Modified Medical Research [place] Dyspnea Scale (MMRC) I only get breathless with strenous exercise 0 PAST MEDICAL HISTORY Diagnosis Date Adenoma of left adrenal gland 12/06/2018 Seen [facility] ER CT 11/28/2018 was stable in size since CT done 11/2015: benign. ADRENAL NODULE 11/17/2007 Anxiety state 11/19/2006 Arthritis Benign neoplasm of colon BPPV (benign paroxysmal positional vertigo) 04/03/2015 Chronic left shoulder pain 09/17/2015 Class 3 severe obesity due to excess calories without serious comorbidity with body mass index (BMI) of 45.0 to 49.9 in adult (HCC) 06/18/2014 DDD (degenerative disc disease), lumbar 01/15/2016 Delayed emergence from general anesthesia Diverticulitis of large intestine without perforation or abscess without bleeding 06/03/2016 Emphysema of lung (HCC) 06/18/2014 Essential hypertension 11/19/2006 Gastroesophageal reflux disease without esophagitis 11/19/2006 Generalized osteoarthrosis, unspecified site 11/19/2006 Internal hemorrhoids Medicare annual wellness visit, initial 11/23/2017 Medicare Part B: 11/29/2016 last done: 11/16/2018 Mixed hyperlipidemia 03/19/2008 Osteoarthritis of lumbar spine 01/15/2016 Osteoarthritis of multiple joints 11/19/2006 Overactive bladder 01/16/2019 Primary osteoarthritis of right hip 09/21/2016 Primary ovarian failure 11/23/2017 Recurrent major depressive disorder, in remission (HCC) 11/23/2017 Smoker 05/27/2010 Status post right hip replacement 10/01/2017 Venous insufficiency (chronic) (peripheral) 10/16/2014 Vertigo 06/14/2017 Vitamin B12 deficiency 05/26/2021 PAST SURGICAL HISTORY Procedure Laterality Date ARTHROSCOPY KNEE DIAGNOSTIC W/WO SYNOVIAL BX SPX 2001 Arthroscopy, knee right ARTHRP ACETBLR/PROX FEM PROSTC AGRFT/ALGRFT Right 06/23/2017 Hip replacement, total BREAST SURGERY HX COLONOSCOPY 07/24/2021 COLONOSCOPY & POLYPECTOMY 06/16/2016 repeat 5 years COLONOSCOPY W/BIOPSY SINGLE/MULTIPLE 04/01/2009 EGD TRANSORAL BIOPSY SINGLE/MULTIPLE 06/22/2012 [facility] Dr Marroquin FRACTURE SURGERY JOINT REPLACEMENT HX LIG/TRNSXJ FLP TUBE ABDL/VAG APPR UNI/BI 1973 Tubal ligation PAST SURGICAL HISTORY OF 1984 ovarian cyst PAST SURGICAL HISTORY OF 2006 right breast removed bonnie. tumor PAST SURGICAL HISTORY OF 05/2008 bilateral eye lid surgery REM LESIO TRUNK,ARM,LEG 1.1 -2.0CM 12/22/2006 Exc. right lower back skin lesion SKIN BIOPSY HX TOTAL ABDOMINAL HYSTERECT W/WO RMVL TUBE OVARY 1987 Hysterectomy, EDWINA - ovaries remain VAGINAL HYSTERECTOMY FAMILY HISTORY Problem Relation Age of Onset Colon Cancer Mother Diabetes Mother rectal cancer/kidney failure Melanoma Father other (obese) Sister hypertension Colon Cancer Sister Breast Cancer Sister 55 triple negative Blood Disease Sister amyloidosis other (obese) Brother Coronary Artery Disease Brother 47 1st AMI Heart Attack Brother other (Liver Issues) Daughter Alcohol/Drug Daughter cyanocobalamin (VITAMIN B-12) 1,000 mcg tab Take 1 tablet by mouth once daily. solifenacin (VESICARE) 5 mg tablet Take 1 tablet by mouth once daily. buPROPion SR (WELLBUTRIN SR) 150 mg 12 hr tablet Take 1 tablet by mouth once daily. lisinopril-hydroCHLOROthiazide (ZESTORETIC) 20-12.5 mg per tablet Take 2 tablets by mouth once daily. omeprazole (PRILOSEC) 20 mg capsule Take 1 capsule by mouth once daily. verapamil SR (CALAN SR) 180 mg CR tablet Take 1.5 tablets by mouth once daily. sertraline (ZOLOFT) 100 mg tablet Take 1.5 tablets by mouth every evening. pravastatin (PRAVACHOL) 40 mg tablet Take 1 tablet by mouth daily at bedtime. fluticasone furoate (ARNUITY ELLIPTA) 100 mcg/actuation inhaler Inhale 1 Puff as instructed once daily. Do a quick inhalation prior to brushing teeth. Then brush teeth, rinse, gargle and spit. ondansetron orally disintegrating (ZOFRAN ODT) 4 mg disintegrating tablet Take 1 tablet by mouth every 8 hours as needed. albuterol HFA (PROVENTIL HFA, VENTOLIN HFA) 90 mcg/actuation inhaler Inhale 2 Puffs as instructed every 6 hours as needed. peg 3350-Electrolytes (GOLYTELY) 236-22.74-6.74 -5.86 gram suspension Refer to printed prep instructions from your provider. (Patient not taking: Reported on 12/08/2021) triamcinolone acetonide (KENALOG) 0.1 % cream Apply 1 application to affected area three times daily. Apply sparingly to area for rash/itching. MEDICAL SUPPLY BEDSIDE COMMODE. dx: right total hip replacement. z96.641 COMPOUNDED PRESCRIPTION Bedside Commode Dx: right total hip replacement Z96.641 ALLERGIES Allergen Reactions Flagyl [Metronidazo* Itching, Other: See Comments nausea/ throat swelling Ibuprofen Vomiting Hematemesis - [facility] 06/21/2012 Nickel Rash Can only wear gold earrings The medications and allergies were reviewed and reconciled for this patient and deemed current. Lung Cancer Risk Factors: 1.Tobacco Use: Start Age 19, Quit Age: N/A, Average packs per day 0.75, Pack Years 39 2. Passive Smoke Exposure: Yes, as an Adult 3. Personal hx of malignancy: No, Type of Cancer: 4. Significant exposures (1 year or more of exposure): Other, chemicals to derust parts, oil to protect metal parts 5. Race: White 6. Education: High School Graduate 7. BMI:Body mass index is 47.7 kg/m . Patient-entered Height: 5'2 Patient-entered Weight: 265 pounds 8. COPD: Yes 9. Pneumonia in the past 5 years: Yes 10. Is there a history of lung cancer in a first degree relative? No 11. Is there a history of lung cancer in a non-first degree relative? No 12. Is there a history of any other cancer in a first degree relative? Yes Health Maintenance Immunization History Administered Date(s) Administered influenza (HD-IIV) vaccine, age 65+ yr, high dose, PF (FLUZONE HIGH-DOSE) 12/05/2013 02/23/2017 11/23/2018 influenza (HD-IIV4) vaccine, age 65+ yr, high dose, quadrivalent, PF (FLUZONE HIGH-DOSE) 12/22/2019 influenza (IIV4) vaccine, age 6 mo - 64 yr, quadrivalent (AFLURIA, FLULAVAL, FLUZONE) 03/15/2015 01/20/2016 influenza vaccine, unspecified formulation 12/31/2008 pneumococcal (PCV13) vaccine, 13 valent (PREVNAR 13) 01/16/2019 pneumococcal (PPV23) vaccine, 23 valent (PNEUMOVAX 23) 12/05/2013 06/29/2017 tetanus diphtheria pertussis (Tdap) vaccine, age 7+ yr (ADACEL, BOOSTRIX) 05/14/2010 Colonoscopy: 07/24/2021 Mammogram: 02/12/2021 DATA REVIEW I have directly visualized the testing documented: None Prior Imaging: Last CT/CTA Chest/Lungs No resulted procedures found. Last CT Chest - Impression Only No resulted procedures found. Last XR Chest - Impression Only XR CHEST 2V FRONTAL/LAT Exam End: 06/15/2022 4:33 PM (Final result) Impression: IMPRESSION: No acute radiographic abnormality. ... Pulmonary Function Testing: SPIROMETRY - BASELINE AND POST DILATOR ([id number]) - ordered on 11/10/19 [facility] [address] [place] [address] Test Date: 2019-11-10 Pat Name: DIANNE HOLLY Department: Room: Gender: Female [employer] Handler: NATHAN More DOB: 1950 Requested By: JULIET, J. Order Number: [id number] Reading MD: Levi Simmons Interpretive Statements 2 Puffs of albuterol (180mcg) delivered by MDI via Aerochamber HRpre =68 /min, HRpost=68 /min. ATS/ERS acceptability and repeatability standards for spirometry met. IMPRESSION: The vital capacity, FEV1 and FEV1/FVC ratio are within normal limits. Spirometry shows no obstruction. There is no significant bronchodilator response. Electr onically Signed On 11-13-2019 7:37:38 EDT by Levi Simmons Site: WO ID: [id number] Name: DIANNE HOLLY Visit Date: 11/10/2019 Second ID: [id number] Referring Doctor: Rakel CHUNG [employer] Handler: NATHAN More Age: 68 : 1950 Sex: Female Race: Height: 63.00 Inches Weight: 266.00 Lbs BSA: 2.18 Order IDs: [id number] Requested Test(s): Spirometry - baselline and post dilator Post Test Comments: 2 Puffs of albuterol (180mcg) delivered by MDI via Aerochamber HRpre =68 /min, HRpost=68 /min. ATS/ERS acceptability and repeatability standards for spirometry met. Review Status: Not Reviewed Pre-Bronch Post-Bronch Pred LLN ULN Actual %Pred Actual %Chng SPIROMETRY FVC (L) 2.84 2.10 3.62 2.74 96 2.52 -7 FEV1 (L) 2.22 1.64 2.78 1.90 85 1.85 -2 FEV1/FVC (%) 79 66 90 69 88 73 5 FEF 25% (L/sec) 4.71 2.56 6.85 3.01 63 3.08 2 FEF 50% (L/sec) 3.43 1.61 5.24 1.18 34 1.44 21 FEF 75% (L/sec) 0.49 0.18 1.25 0.44 88 0.24 -45 FEF 25-75% (L/sec) 1.94 0.92 3.36 1.20 61 0.97 -19 FEF Max (L/sec) 5.71 5.09 89 5.09 FIVC (L) 2.53 2.54 FIF 50% (L/sec) 3.77 2.34 5.21 2.76 73 1.57 -43 FIF Max (L/sec) 3.11 2.19 -29 FET (sec) 8.01 8.79 9 Back Extrap Vol (L) 0.05 0.03 -35 Time To FEFmax (sec) 0.055 0.062 11 PHYSICAL EXAM: BP 122/78 Pulse 87 Resp 18 Wt 120.2 kg (265 lb) SpO2 93% BMI 47.70 kg/m Deferred ASSESSMENT and RECOMMENDATIONS: 1. Screening for lung cancer: Six year risk for lung cancer: 4.31% I have determined that the patient is eligible for a low dose CT based on age, absence of signs or symptoms of lung cancer, and total pack years: Yes. The patient and I engaged in shared decision making, including the use of one or more decision aids, to include benefits, harms, follow-up diagnostic testing, over-diagnosis, false positive rate, and total radiation exposure. The patient understands and feels comfortable with it: Yes. The patient was counseled on the importance of adherence to annual LDCT lung cancer screening, impact of comorbidities and ability or willingness to undergo diagnosis and treatment. The patient understands and feels comfortable with it:Yes. 2. Nicotine dependence: The patient was counseled on the importance of smoking cessation if current smoker and, if appropriate, offered additional tobacco cessation counseling services - Smoking Cessation Counseling. SMOKING CESSATION COUNSELING Smoking cessation methods including Behavior Modification were discussed with the patient and assistance offered. The medical conditions adversely affected by cigarette use include:COPD, Emphysema, and Lung Cancer. The patient is currently not ready to quit. I personally spent 4 minutes in counseling. The time spent in smoking cessation counseling is exclusive of any other counseling during this visit. Dorian Kern APRN.CNP NPI #: June 24, 2022 11:21 AM documented in this encounter [facility] 06-24-2022 Instructions Dorian Kern APRN.CNP - 06/24/2022 11:[address] Lung Screen Results The CT scan that you will have done will show if you have any nodules (small spots) in your lungs that are suspicious for cancer. Around 90% of the patients who have this scan done are found to have at least one nodule. Most nodules are benign (not cancer) and of no harm to you at all. A specialist will make a scientific evaluation about whether or not a nodule is worrisome based on its size and shape. The radiologist who will read your scan will put it into one of four categories: LUNG-RADS Category Description Overall Probability of Malignancy Recommended Follow-Up 1 Negative No nodules and definitely benign (non-cancerous nodules) Essentially 0. 1 Year - Follow-up Low dose CT 2 Benign Appearance or Behavior Nodules with a very low likelihood of becoming cancer due to size or lack of growth Less than 1% 1 Year - Follow-up Low dose CT 3 Probably Benign Probably benign finding, short term follow-up recommended 1 to 2% 6 Months - Follow-up CT 4 A,B,or X Suspicious Findings for which additional diagnostic testing and/or biopsy is recommended Will be calculated based on nodule characteristics. Dependent on what is seen on the exam. [address], PET, Biopsy At times, we may see something outside of the lungs on the scan that could be a health concern. Below are some of the most common findings: S Clinically Significant or Potentially Clinically Significant Findings (non lung cancer) Referral or additional imaging/labs depending on result. Approximately 10% of people receive this result. Coronary Artery Calcifications (Moderate or Severe) - Referral to cardiology or PCP for further work-up and recommendations. Thyroid Nodule - TSH level and Thyroid Ultrasound dependent on size, referral to endocrinology. Adrenal Nodule - Blood work and referral to endocrinology. Others Lung Cancer Screening hotline: [phone] Lung Cancer Screening [phone] Billing Questions: or [email or web address] Lung Cancer Screening Team: Nettie Allen CNP; Carolina Valdez PA-C; Negin Knight CNP; Love Davison CNP, Winnie Colon PA-C, Yadira Spivey PA-C, Dorian Kern, SHEET HEATER : [phone] documented in this encounter [facility] 06-18-2022 Miscellaneous Notes Patient notified and voiced understanding. Sarita Roberson MA Let patient know B12, electrolytes, liver functions, UA, Mg, CBC and lipid panel were ok. Her Good cholesterol is low and can be improved with increased walking for exercise. Her kidney function look decrease but also appears she was dehydrated. Ask her to work on getting 48-64 ounces of water a day and I placed an order to repeat the kidney labs in a week. documented in this encounter [facility] 06-15-2022 Note HNO ID: [id number] Author: RT Shelli(R) Service: Radiology Author Type: Technologist Type: Progress Notes Filed: 06/15/2022 4:34 PM Note Text: Radiology Service Progress Note PATIENT NAME: Dianne Holly DATE OF SERVICE: June 15, 2022 TIME: 4:18 PM PATIENT IDENTITY VERIFICATION COMPLETED USING TWO (2) IDENTIFIERS: Name and Date of confirmed by patient verbally. FALL SCREENING: Has the patient had 2 falls in the last year or 1 fall with injury or currently using an Ambulatory Assistive Device (Walker, Cane, Wheelchair, Crutches, etc.)? No PATIENT GENDER DATA: Female. status: : No status: NO. PATIENT RELEVANT IMPLANT DATA REVIEWED: Yes RADIOLOGY DEPARTMENT: General X-ray: Exam(s) Completed: Chest X-Ray PERIPHERAL IV DATA: Not applicable SIGNED BY: RT Shelli(R) June 15, 2022 4:18 PM [facility] 06-15-2022 Note HNO ID: [id number] Author: Dewayne Chung MD Service: ? Author Type: Physician Type: Progress Notes Filed: 06/15/2022 5:12 PM Note Text: Chief Complaint Multiples issues HPI Dianne Holly is a 71 year old female who presents here today for multiple issues. Office visit: medicare wellness Sleep issues Cough Sore on inside of lip Losing weight Sister had in November after being diagnosed with stage 4 breast cancer 10.5 years earlier. Her dog back in March after having him 11 years. Daughter is a alcoholic. Patient has been having sleep issues. Feels this is related to the loss of her sister then the Dog and her youngest daughter has come back to the area and is a alcoholic. Has difficulty falling asleep and staying asleep. Has chronic daytime somnolence and will fall asleep multiple times through out the day. She does snore. Patient has continued to have a cough since having suspected COVID back in 2020. Did not do a COVID test at the time. Does have a Hx of emphysema and continues to smoke. Wants to loose weight and feels her weight plays a role in a lot of her health problems., Patient noticed a blue discoloration on the left lower lip. Thinks it developed after biting her lip about 6 months ago. Also feels a lump down in the bottom of her mouth. Office visit: 6 month follow up - 12/08/2021 Patient with hx of HTN, hyperlipidemia, COPD, Depression, GERD, obesity, smoker, BPPV, OA, DDD, OAB, b12 def, and those as below. Patient has had cough for the past week. Has been exposed to others with similar symptoms. Cough is productive. Patient smokes 1/2 ppd. She reports urinary frequency. Concerned for UTI. States she gets them fairly often and not always have full symptoms Her sister is currently in ICU with breast cancer that has spread to her lungs. She isn't doing well. Dianne has noted more anxiety due to this. She knows that if her Sister , she will start having panic attacks. Past medical history, appointments, medications, allergies reviewed. Previous Medical History PAST MEDICAL HISTORY Diagnosis Date Adenoma of left adrenal gland 12/06/2018 Seen [facility] ER CT 11/28/2018 was stable in size since CT done 11/2015: benign. ADRENAL NODULE 11/17/2007 Anxiety state 11/19/2006 Arthritis Benign neoplasm of colon BPPV (benign paroxysmal positional vertigo) 04/03/2015 Chronic left shoulder pain 09/17/2015 Class 3 severe obesity due to excess calories without serious comorbidity with body mass index (BMI) of 45.0 to 49.9 in adult (HCC) 06/18/2014 Current use of proton pump inhibitor 11/23/2017 Mg checked 04/2018 DDD (degenerative disc disease), lumbar 01/15/2016 Delayed emergence from general anesthesia Diverticulitis of large intestine without perforation or abscess without bleeding 06/03/2016 Emphysema of lung ([facility]) 06/18/2014 Essential hypertension 11/19/2006 Gastroesophageal reflux disease without esophagitis 11/19/2006 Generalized osteoarthrosis, unspecified site 11/19/2006 Internal hemorrhoids Medicare annual wellness visit, initial 11/23/2017 Medicare Part B: 11/29/2016 last done: 11/16/2018 Mixed hyperlipidemia 03/19/2008 Osteoarthritis of lumbar spine 01/15/2016 Osteoarthritis of multiple joints 11/19/2006 Overactive bladder 01/16/2019 Primary osteoarthritis of right hip 09/21/2016 Primary ovarian failure 11/23/2017 Recurrent major depressive disorder, in remission ([facility]) 11/23/2017 Smoker 05/27/2010 Status post right hip replacement 10/01/2017 Venous insufficiency (chronic) (peripheral) 10/16/2014 Vertigo 06/14/2017 Previous Surgical History PAST SURGICAL HISTORY Procedure Laterality Date ARTHROSCOPY KNEE DIAGNOSTIC W/WO SYNOVIAL BX SPX 2001 Arthroscopy, knee right ARTHRP ACETBLR/PROX FEM PROSTC AGRFT/ALGRFT Right 06/23/2017 Hip replacement, total BREAST SURGERY HX COLONOSCOPY 07/24/2021 COLONOSCOPY AND POLYPECTOMY 06/16/2016 repeat 5 years COLONOSCOPY W/BIOPSY SINGLE/MULTIPLE 04/01/2009 EGD TRANSORAL BIOPSY SINGLE/MULTIPLE 06/22/2012 [facility] Dr Marroquin FRACTURE SURGERY JOINT REPLACEMENT HX LIG/TRNSXJ FLP TUBE ABDL/VAG APPR UNI/BI 1973 Tubal ligation PAST SURGICAL HISTORY OF 1984 ovarian cyst PAST SURGICAL HISTORY OF 2006 right breast removed bonnie. tumor PAST SURGICAL HISTORY OF 05/2008 bilateral eye lid surgery REM LESIO TRUNK,ARM,LEG 1.1 -2.0CM 12/22/2006 Exc. right lower back skin lesion SKIN BIOPSY HX TOTAL ABDOMINAL HYSTERECT W/WO RMVL TUBE OVARY 1987 Hysterectomy, EDWINA - ovaries remain VAGINAL HYSTERECTOMY Family History FAMILY HISTORY Problem Relation Age of Onset Colon Cancer Mother Diabetes Mother rectal cancer/kidney failure other (skin cancer) Father other (obese) Sister hypertension Colon Cancer Sister Breast Cancer Sister 55 triple negative Blood Disease Sister amyloidosis other (obese) Brother Coronary Artery Disease Brother 47 (more content not included)... [facility] 06-15-2022 History of Presen t illness Narrative Chief Complaint Multiples issues HPI Dianne Holly is a 71 year old female who presents here today for multiple issues. Office visit: medicare wellness Sleep issues Cough Sore on inside of lip Losing weight Sister had in November after being diagnosed with stage 4 breast cancer 10.5 years earlier. Her dog back in March after having him 11 years. Daughter is a alcoholic. Patient has been having sleep issues. Feels this is related to the loss of her sister then the Dog and her youngest daughter has come back to the area and is a alcoholic. Has difficulty falling asleep and staying asleep. Has chronic daytime somnolence and will fall asleep multiple times through out the day. She does snore. Patient has continued to have a cough since having suspected COVID back in 2020. Did not do a COVID test at the time. Does have a Hx of emphysema and continues to smoke. Wants to loose weight and feels her weight plays a role in a lot of her health problems., Patient noticed a blue discoloration on the left lower lip. Thinks it developed after biting her lip about 6 months ago. Also feels a lump down in the bottom of her mouth. Office visit: 6 month follow up - 12/08/2021 Patient with hx of HTN, hyperlipidemia, COPD, Depression, GERD, obesity, smoker, BPPV, OA, DDD, OAB, b12 def, and those as below. Patient has had cough for the past week. Has been exposed to others with similar symptoms. Cough is productive. Patient smokes 1/2 ppd. She reports urinary frequency. Concerned for UTI. States she gets them fairly often and not always have full symptoms Her sister is currently in ICU with breast cancer that has spread to her lungs. She isn't doing well. Dianne has noted more anxiety due to this. She knows that if her Sister , she will start having panic attacks. Past medical history, appointments, medications, allergies reviewed. Previous Medical History PAST MEDICAL HISTORY Diagnosis Date Adenoma of left adrenal gland 12/06/2018 Seen [facility] ER CT 11/28/2018 was stable in size since CT done 11/2015: benign. ADRENAL NODULE 11/17/2007 Anxiety state 11/19/2006 Arthritis Benign neoplasm of colon BPPV (benign paroxysmal positional vertigo) 04/03/2015 Chronic left shoulder pain 09/17/2015 Class 3 severe obesity due to excess calories without serious comorbidity with body mass index (BMI) of 45.0 to 49.9 in adult ([facility]) 06/18/2014 Current use of proton pump inhibitor 11/23/2017 Mg checked 04/2018 DDD (degenerative disc disease), lumbar 01/15/2016 Delayed emergence from general anesthesia Diverticulitis of large intestine without perforation or abscess without bleeding 06/03/2016 Emphysema of lung ([facility]) 06/18/2014 Essential hypertension 11/19/2006 Gastroesophageal reflux disease without esophagitis 11/19/2006 Generalized osteoarthrosis, unspecified site 11/19/2006 Internal hemorrhoids Medicare annual wellness visit, initial 11/23/2017 Medicare Part B: 11/29/2016 last done: 11/16/2018 Mixed hyperlipidemia 03/19/2008 Osteoarthritis of lumbar spine 01/15/2016 Osteoarthritis of multiple joints 11/19/2006 Overactive bladder 01/16/2019 Primary osteoarthritis of right hip 09/21/2016 Primary ovarian failure 11/23/2017 Recurrent major depressive disorder, in remission ([facility]) 11/23/2017 Smoker 05/27/2010 Status post right hip replacement 10/01/2017 Venous insufficiency (chronic) (peripheral) 10/16/2014 Vertigo 06/14/2017 Previous Surgical History PAST SURGICAL HISTORY Procedure Laterality Date ARTHROSCOPY KNEE DIAGNOSTIC W/WO SYNOVIAL BX SPX 2001 Arthroscopy, knee right ARTHRP ACETBLR/PROX FEM PROSTC AGRFT/ALGRFT Right 06/23/2017 Hip replacement, total BREAST SURGERY HX COLONOSCOPY 07/24/2021 COLONOSCOPY & POLYPECTOMY 06/16/2016 repeat 5 years COLONOSCOPY W/BIOPSY SINGLE/MULTIPLE 04/01/2009 EGD TRANSORAL BIOPSY SINGLE/MULTIPLE 06/22/2012 [facility] Dr Marroquin FRACTURE SURGERY JOINT REPLACEMENT HX LIG/TRNSXJ FLP TUBE ABDL/VAG APPR UNI/BI 1974 Tubal ligation PAST SURGICAL HISTORY OF 1984 ovarian cyst PAST SURGICAL HISTORY OF 2006 right breast removed bonnie. tumor PAST SURGICAL HISTORY OF 05/2008 bilateral eye lid surgery REM LESIO TRUNK,ARM,LEG 1.1 -2.0CM 12/22/2006 Exc. right lower back skin lesion SKIN BIOPSY HX TOTAL ABDOMINAL HYSTERECT W/WO RMVL TUBE OVARY 1987 Hysterectomy, EDWINA - ovaries remain VAGINAL HYSTERECTOMY Family History FAMILY HISTORY Problem Relation Age of Onset Colon Cancer Mother Diabetes Mother rectal cancer/kidney failure other (skin cancer) Father other (obese) Sister hypertension Colon Cancer Sister Breast Cancer Sister 55 triple negative Blood Disease Sister amyloidosis other (obese) Brother Coronary Artery Disease Brother 47 1st AMI Heart Attack Brother other (Liver Issues) Daughter Alcohol/Drug Daughter Patient Allergies ALLERGIES Allergen Reactions Flagyl [Metronidazo* Itching, Other: See Comments nausea/ throat swelling Ibuprofen Vomiting Hematemesis - [facility] 06/21/2012 Nickel Rash Can only wear gold earrings Current Medications Current Outpatient Medications on File Prior to Visit Medication Sig pravastatin (PRAVACHOL) 40 mg tablet Take 1 tablet by mouth daily at bedtime. sertraline (ZOLOFT) 100 mg tablet Take 1 tablet by mouth every evening. cyanocobalamin (VITAMIN B-12) 1,000 mcg tab Take 1 tablet by mouth once daily. solifenacin (VESICARE) 5 mg tablet Take 1 tablet by mouth once daily. fluticasone furoate (ARNUITY ELLIPTA) 100 mcg/actuation inhaler Inhale 1 Puff as instructed once daily. Do a quick inhalation prior to brushing teeth. Then brush teeth, rinse, gargle and spit. buPROPion SR (WELLBUTRIN SR) 150 mg 12 hr tablet Take 1 tablet by mouth once daily. lisinopril-hydroCHLOROthiazide (PRINZIDE,ZESTORETIC) 20-12.5 mg per tablet Take 2 tablets by mouth once daily. omeprazole (PRILOSEC) 20 mg capsule Take 1 capsule by mouth once daily. ondansetron orally disintegrating (ZOFRAN ODT) 4 mg disintegrating tablet Take 1 tablet by mouth every 8 hours as needed. albuterol HFA (PROVENTIL HFA, VENTOLIN HFA) 90 mcg/actuation inhaler Inhale 2 Puffs as instructed every 6 hours as needed. verapamil SR (CALAN SR, ISOPTIN SR) 180 mg CR tablet Take 1.5 tablets by mouth once daily. peg 3350-Electrolytes (GOLYTELY) 236-22.74-6.74 -5.86 gram suspension Refer to printed prep instructions from your provider. (Patient not taking: Reported on 12/08/2021) triamcinolone acetonide (KENALOG) 0.1 % cream Apply 1 application to affected area three times daily. Apply sparingly to area for rash/itching. MEDICAL SUPPLY BEDSIDE COMMODE. dx: right total hip replacement. z96.641 COMPOUNDED PRESCRIPTION Bedside Commode Dx: right total hip replacement Z96.641 No current facility-administered medications on file prior to visit. Social History Social History Tobacco Use Smoking status: Every Day Packs/day: 0.40 Years: 40.00 Pack years: 16.00 Types: Cigarettes Start date: 03/01/1967 Smokeless tobacco: Never Tobacco comments: recently cut back to 03/02 ppd Vaping Use Vaping Use: Never used Substance Use Topics Alcohol use: Yes Comment: rare Drug use: No Review of Symptoms REVIEW OF SYSTEMS See HPI EXAM: BP 138/82 (BP Site: Left Arm, BP Position: Sitting, BP Cuff Size: Large Adult) Pulse 76 Ht 158.8 cm (5' 2.5 ) Wt 120.2 kg (265 lb) BMI 47.70 kg/m General Appearance: Well appearing, alert, in no acute distress, well-hydrated, well nourished. and Morbidly obese. Neck: Supple, no adenopathy; thyroid symmetric, normal size, no bruits. Lungs: No rhonchi, rales.. mild scattered inspiratory wheezing. Heart: RRR without murmur, gallop, or rubs. No ectopy. Abdomen: Normal abdominal exam, Abdomen soft, non-tender. Bowel sounds normal. No masses, organomegaly. Extremities: No deformities, edema, skin discoloration, Good capillary refill. . Peripheral Pulses: Normal. Mouth: has a bluish lesion on the lower left lip. Health Maintenance List SHINGRIX VACCINE(1 of 2) Never done DTAP,TDAP,TD(2 - Td or Tdap) due on 05/14/2020 COVID-19 VACCINE(3 - Booster for Pfizer series) due on 12/04/2020 BP CONTROLLED (<130/80) due on 08/13/2021 MAMMOGRAM due on 02/11/2022 ADVANCE DIRECTIVE DISCUSSION due on 03/01/2022 ALPHA-1 ANTITRYPSIN DEFICIENCY SCREENING due on 12/08/2022 INFLUENZA(Season Ended) due on 10/30/2022 ANNUAL PCP TEAM CHRONIC DISEASE VISIT due on 12/08/2022 COLORECTAL CANCER SCREENING due on 07/24/2024 DIABETES SCREEN due on 12/08/2024 LIPID SCREEN due on 12/08/2026 BONE DENSITY Completed SPIROMETRY Completed HEPATITIS C SCREENING Completed PNEUMOCOCCAL: 65+ Completed Data reviewed A/P ASSESSMENT/PLAN: 1. Recurrent major depressive disorder, in remission (HCC) - ICD9: 296.35, ICD10: F33.40 (primary diagnosis) - will increase Zoloft to 150 mg a day 2. Anxiety state - ICD9: 300.00, ICD10: F41.1 Cont - BUPROPION HCL SR 150 MG TABLET,12 HR SUSTAINED-RELEASE - CBC + DIFF - SERTRALINE increased to 150 mg a day. 3. Class 3 severe obesity due to excess calories without serious comorbidity with body mass index (BMI) of 45.0 to 49.9 in adult (HCC) - ICD9: 278.01, V85.42, ICD10: E66.01, Z68.42 - CONSULT TO WEIGHT MANAGEMENT NAVIGATION - HOME SLEEP APNEA TEST (HSAT) 4. Snores - ICD9: 786.09, ICD10: R06.83 - HOME SLEEP APNEA TEST (HSAT) 5. Hypersomnolence - ICD9: 780.54, ICD10: G47.10 - HOME SLEEP APNEA TEST (HSAT) 6. Pulmonary emphysema, unspecified emphysema type (HCC) - ICD9: 492.8, ICD10: J43.9 Check - SPIROMETRY - BASELINE AND POST DILATOR 7. Cough, persistent - ICD9: 786.2, ICD10: R05.3 Check - SPIROMETRY - BASELINE AND POST DILATOR - XR Ap and Lat chest 8. Smoker - ICD9: 305.1, ICD10: F17.200 - Cessation encouraged. - Counseling was given focusing on the harmful effects of this addiction especially given the patient's medical condition(s) which will be worsened because of the chemicals in tobacco. Check - SPIROMETRY - BASELINE AND POST DILATOR - CONSULT LUNG CANCER SCREENING CLINIC 9. Encounter for screening for lung cancer - ICD9: V76.0, ICD10: Z12.2 - CONSULT LUNG CANCER SCREENING CLINIC 10. Mixed hyperlipidemia - ICD9: 272.2, ICD10: E78.2 Check - COMP METABOLIC PANEL - URINALYSIS, WITH MICROSCOPIC - LIPID PANEL BASIC 11. Essential hypertension - ICD9: 401.9, ICD10: I10 - LISINOPRIL 20 MG-HYDROCHLOROTHIAZIDE 12.5 MG TABLET Check - COMP METABOLIC PANEL - URINALYSIS, WITH MICROSCOPIC - LIPID PANEL BASIC - HOME SLEEP APNEA TEST (HSAT) 12. Gastroesophageal reflux disease without esophagitis Check - VITAMIN B12 BLOOD - MAGNESIUM BLD 13. Vitamin B12 deficiency - ICD9: 266.2, ICD10: E53.8 Check - VITAMIN B12 BLOOD 14. Medication management - ICD9: V58.69, ICD10: Z79.899 Check - VITAMIN B12 BLOOD - MAGNESIUM BLD - CBC + DIFF 15. Advance directive discussed with patient - ICD9: V65.49, ICD10: Z71.89 - patient provided packets. 16. Lip lesion - ICD9: 528.5, ICD10: K13.0 - CONSULT TO ENT: Alyssa I spent a total of 42 minutes on the date of the service which included preparing to see the patient, [id number] patient care, completing clinical documentation, performing a medically appropriate examination, counseling and educating the patient/family/caregiver and ordering medications, tests, or procedures. Dewayne Chung MD documented in this encounter [facility] 06-11-2022 Miscellaneous Notes RX INSTRUCTIONS: Patient is out of medication and asking for approval today. Last refills 12/08/21 Qty: 90 with 1 refill [facility] 12/08/21 NOV 06/15/21 Knia Villegas LPN Patient has been identified by name and date of : Yes Requested Prescriptions Pending Prescriptions Disp Refills pravastatin (PRAVACHOL) 40 mg tablet 90 tablet 1 Sig: Take 1 tablet by mouth daily at bedtime. sertraline (ZOLOFT) 100 mg tablet 90 tablet 1 Sig: Take 1 tablet by mouth every evening. RX INSTRUCTIONS: Patient is out of medication and asking for approval today. Patient aware RX will be sent to pharmacy. No need to notify patient. Stephy Jeff documented in this encounter [facility] 01-06-2022 Instructions Dewayne Tomas APRN.[employer] - 01/06/2022 8:01 PM EST How to Manage Common Symptoms Associated with COVID for Adults Fever- Fever is a temperature over 100.4 F and can occur when the body is fighting an infection. To help treat a fever: Drink plenty of fluids and stay well hydrated. Eat small amounts of easy to digest food. Rest. Your body needs rest to recover, but getting up and moving around the house frequently is a good idea. You should try to continue doing your normal daily activities (bathing, toileting, grooming, cooking), though you will probably feel tired, and need to rest often. Avoid any heavy activity or exercise, as this will increase your body temperature. Dress in light clothing and stay covered in a light sheet. Keep the room temperature cool. Take a slightly warm (not cold or cool) bath, or apply damp washcloths to the forehead and wrists. Cough- Cough is a common symptom associated with COVID and can be bothersome. To help treat a cough: Stay well hydrated. Try warm water or tea with lemon and/or honey to help soothe the cough. Use a humidifier to add moisture to the air. Try a product with menthol, like a cough drop or a rub for your chest such as Vicks, which can help reduce cough. Try cough drops. Avoid smoking and other strong odors or perfumes. Try breathing exercises to keep your lungs open and clear. Take a big deep breath through your nose and hold for 5 seconds before slowly releasing. Repeat frequently, while you are awake. Congestion- Runny nose or nasal congestion can occur with COVID. Treatment can help relieve symptoms: Try OTC nasal saline spray, or nasal saline rinse to relieve mucus congestion. Nasal strips can help keep nasal passages open, to increase airflow. Elevating your head with an extra pillow in bed can help reduce congestion. Using a humidifier can increase moisture in the air, and make breathing easier. Sore Throat- Another common symptom with COVID, can be managed at home by: Stay well hydrated. Gargle with salt water - mix teaspoon salt with 1 cup of warm water and gargle. This helps to loosen mucus in the back of the throat and may reduce discomfort. Try ice chips, popsicles or lozenges to soothe the throat. Nausea/Vomiting/Diarrhea- These are common symptoms, and staying hydrated is most important. If you are nauseous or vomiting, start with small sips of water every 10-15 minutes and increase as tolerated. You can try sucking an ice cube too. If tolerating, you can try pedialyte or Gatorade, or flat sprite or barber-aguila. Start slowly and increase as you are able to. Instead of meals, try smaller, more frequent snacks. Try eating bland foods like crackers, toast, rice, and applesauce. Avoid spicy, greasy or fried foods and dairy containing foods. Even if you aren't feeling hungry due to lack of smell or taste, it is important to try to take in some food when you are able. After drinking and eating, rest in an upright position for up to two hours as needed to help decrease nauseous feelings. Try closing your eyes, avoid moving and watching TV. Avoid strong odors that can make you feel more nauseated. When to seek emergency medical attention Look for emergency warning signs for COVID-19. If having any of these symptoms, seek emergency medical care immediately: Trouble breathing Persistent pain or pressure in the chest New confusion Inability to wake or stay awake Bluish lips or face *This list is not all possible symptoms. Please call your medical provider for any other symptoms that are severe or concerning to you. documented in this encounter [facility] 01-06-2022 History of Presen t illness Narrative Subjective HPI Nontoxic-appearing female presents urgent care chief complaint cough chest congestion. Duration of symptoms 1 week. Associated symptoms cough chest congestion. Patient states increased sputum production and slight increase shortness of breath. No known sick contacts. Has been using Mucinex this is helped some. Has been using rescue inhaler more frequently. History of emphysema. Denies any pain. Is vaccinated against COVID-19. Is not boosted. Denies any fever body aches chills chest pain pleuritic pain hemoptysis nausea vomiting abdominal pain change in bowel or bladder habits. Past medical history prescription medication use and allergies reviewed. BP 128/82 Pulse 84 Temp 36.5 C (97.7 F) Resp 18 Wt 118.8 kg (262 lb) SpO2 95% BMI 46.41 kg/m .Patient presents with: Chest Congestion: cough, sob x 1 week PAST MEDICAL HISTORY Diagnosis Date Adenoma of left adrenal gland 12/06/2018 Seen [facility] ER CT 11/28/2018 was stable in size since CT done 11/2015: benign. ADRENAL NODULE 11/17/2007 Anxiety state 11/19/2006 Arthritis Benign neoplasm of colon BPPV (benign paroxysmal positional vertigo) 04/03/2015 Chronic left shoulder pain 09/17/2015 Class 3 severe obesity due to excess calories without serious comorbidity with body mass index (BMI) of 45.0 to 49.9 in adult ([facility]) 06/18/2014 Current use of proton pump inhibitor 11/23/2017 Mg checked 04/2018 DDD (degenerative disc disease), lumbar 01/15/2016 Delayed emergence from general anesthesia Diverticulitis of large intestine without perforation or abscess without bleeding 06/03/2016 Emphysema of lung ([facility]) 06/18/2014 Essential hypertension 11/19/2006 Gastroesophageal reflux disease without esophagitis 11/19/2006 Generalized osteoarthrosis, unspecified site 11/19/2006 Internal hemorrhoids Medicare annual wellness visit, initial 11/23/2017 Medicare Part B: 11/29/2016 last done: 11/16/2018 Mixed hyperlipidemia 03/19/2008 Osteoarthritis of lumbar spine 01/15/2016 Osteoarthritis of multiple joints 11/19/2006 Overactive bladder 01/16/2019 Primary osteoarthritis of right hip 09/21/2016 Primary ovarian failure 11/23/2017 Recurrent major depressive disorder, in remission ([facility]) 11/23/2017 Smoker 05/27/2010 Status post right hip replacement 10/01/2017 Venous insufficiency (chronic) (peripheral) 10/16/2014 Vertigo 06/14/2017 PAST SURGICAL HISTORY Procedure Laterality Date ARTHROSCOPY KNEE DIAGNOSTIC W/WO SYNOVIAL BX SPX 2001 Arthroscopy, knee right ARTHRP ACETBLR/PROX FEM PROSTC AGRFT/ALGRFT Right 06/23/2017 Hip replacement, total BREAST SURGERY HX COLONOSCOPY 07/24/2021 COLONOSCOPY & POLYPECTOMY 06/16/2016 repeat 5 years COLONOSCOPY W/BIOPSY SINGLE/MULTIPLE 04/01/2009 EGD TRANSORAL BIOPSY SINGLE/MULTIPLE 06/22/2012 [facility] Dr Marroquin FRACTURE SURGERY JOINT REPLACEMENT HX LIG/TRNSXJ FLP TUBE ABDL/VAG APPR UNI/BI 1973 Tubal ligation PAST SURGICAL HISTORY OF 1984 ovarian cyst PAST SURGICAL HISTORY OF 2006 right breast removed bonnie. tumor PAST SURGICAL HISTORY OF 05/2008 bilateral eye lid surgery REM LESIO TRUNK,ARM,LEG 1.1 -2.0CM 12/22/2006 Exc. right lower back skin lesion SKIN BIOPSY HX TOTAL ABDOMINAL HYSTERECT W/WO RMVL TUBE OVARY 1987 Hysterectomy, EDWINA - ovaries remain VAGINAL HYSTERECTOMY ALLERGIES Flagyl [Metronidazole Hcl], Ibuprofen, and Nickel MEDICATIONS cyanocobalamin (VITAMIN B-12) 1,000 mcg tab Take 1 tablet by mouth once daily. solifenacin (VESICARE) 5 mg tablet Take 1 tablet by mouth once daily. fluticasone furoate (ARNUITY ELLIPTA) 100 mcg/actuation inhaler Inhale 1 Puff as instructed once daily. Do a quick inhalation prior to brushing teeth. Then brush teeth, rinse, gargle and spit. buPROPion SR (WELLBUTRIN SR) 150 mg 12 hr tablet Take 1 tablet by mouth once daily. lisinopril-hydroCHLOROthiazide (PRINZIDE,ZESTORETIC) 20-12.5 mg per tablet Take 2 tablets by mouth once daily. omeprazole (PRILOSEC) 20 mg capsule Take 1 capsule by mouth once daily. ondansetron orally disintegrating (ZOFRAN ODT) 4 mg disintegrating tablet Take 1 tablet by mouth every 8 hours as needed. pravastatin (PRAVACHOL) 40 mg tablet Take 1 tablet by mouth daily at bedtime. sertraline (ZOLOFT) 100 mg tablet Take 1 tablet by mouth every evening. albuterol HFA (PROVENTIL HFA, VENTOLIN HFA) 90 mcg/actuation inhaler Inhale 2 Puffs as instructed every 6 hours as needed. verapamil SR (CALAN SR, ISOPTIN SR) 180 mg CR tablet Take 1.5 tablets by mouth once daily. triamcinolone acetonide (KENALOG) 0.1 % cream Apply 1 application to affected area three times daily. Apply sparingly to area for rash/itching. MEDICAL SUPPLY BEDSIDE COMMODE. dx: right total hip replacement. z96.641 COMPOUNDED PRESCRIPTION Bedside Commode Dx: right total hip replacement Z96.641 peg 3350-Electrolytes (GOLYTELY) 236-22.74-6.74 -5.86 gram suspension Refer to printed prep instructions from your provider. (Patient not taking: Reported on 12/08/2021) FAMILY HISTORY Problem Relation Age of Onset Colon Cancer Mother Diabetes Mother rectal cancer/kidney failure other (skin cancer) Father other (obese) Sister hypertension Colon Cancer Sister Breast Cancer Sister 55 triple negative Blood Disease Sister amyloidosis other (obese) Brother Coronary Artery Disease Brother 47 1st AMI Heart Attack Brother other (Liver Issues) Daughter Alcohol/Drug Daughter Social History Tobacco Use Smoking status: Every Day Packs/day: 0.40 Years: 40.00 Pack years: 16.00 Types: Cigarettes Start date: 03/01/1967 Smokeless tobacco: Never Tobacco comments: recently cut back to 03/02 ppd Vaping Use Vaping Use: Never used Substance Use Topics Alcohol use: Yes Comment: rare Drug use: No Review of Systems Constitutional: Negative for chills, fever and malaise/fatigue. HENT: Positive for congestion. Negative for ear discharge, ear pain, sinus pain and sore throat. Eyes: Negative for blurred vision, pain, discharge and redness. Respiratory: Positive for cough, sputum production and shortness of breath. Negative for hemoptysis, wheezing and stridor. Cardiovascular: Negative for chest pain. Gastrointestinal: Negative for abdominal pain, diarrhea, nausea and vomiting. Musculoskeletal: Negative for myalgias. Skin: Negative for itching and rash. Neurological: Negative for dizziness and headaches. Objective Physical Exam Constitutional: General: She is not in acute distress. Appearance: She is not diaphoretic. HENT: Head: Normocephalic. Mouth/Throat: Mouth: Mucous membranes are moist. Pharynx: Oropharynx is clear. No oropharyngeal exudate or posterior oropharyngeal erythema. Eyes: Conjunctiva/sclera: Conjunctivae normal. Pupils: Pupils are equal, round, and reactive to light. Cardiovascular: Rate and Rhythm: Normal rate and regular rhythm. Heart sounds: Normal heart sounds. Pulmonary: Effort: Pulmonary effort is normal. No tachypnea, accessory muscle usage or respiratory distress. Breath sounds: No stridor. Wheezing present. No rhonchi or rales. Abdominal: Palpations: Abdomen is soft. Tenderness: There is no abdominal tenderness. Musculoskeletal: Cervical back: Normal range of motion and neck supple. No rigidity or tenderness. Lymphadenopathy: Cervical: No cervical adenopathy. Skin: General: Skin is warm and dry. Neurological: Mental Status: She is alert and oriented to person, place, and time. ASSESSMENT/PLAN: 1. Acute cough - ICD9: 786.2, ICD10: R05.1 (primary diagnosis) - COVID WITH FLUA+B, ROUTINE - XR CHEST 2V FRONTAL/LAT 2. Suspected COVID-19 virus infection - ICD9: V01.79, ICD10: Z20.822 - COVID WITH FLUA+B, ROUTINE Patient diagnosed with acute cough, COPD exacerbation suspected COVID-19. Will be placed on prednisone and doxycycline. Chest x-ray ordered return tomorrow for chest x-ray. Patient was educated on supportive therapies. Patient will follow up with primary care provider as needed. Patient was instructed to immediately proceed to emergency room for any new, worsening, or symptoms lasting longer than anticipated. The patient's clinical presentation is otherwise unremarkable at this time. Based on exam and clinical finding, the patient is stable for discharge. Plan of care was discussed with patient. Patient verbalizes understanding and agrees to plan of care. This note was generated using [employer] software. It may contain errors in wording, punctuation, or spelling. Dewayne Tomas APRN.STEPHANI documented in this encounter [facility] 12-17-2021 Miscellaneous Notes Spoke with pt and information listed below given. Pt verbalizes understanding. Sayra Valencia LPN TC to patient who is unavailable. Daughter to give patient message to call office to receive update. BARB Pierre Let patient know that I will send in ativan 1mg to take up to 3 times a day. She can initially cut the tablets in half to see if 0.5mg works for her and only take as needed. Padmini Solorzano PA-C Pt calling and states she is having panic attacks. Her sister is ill and today they are going to pull the plug on her. Pt states this is hard for her. Pt asking if she could have xanax called to her pharmacy. This was discussed with Padmini at prior apt. Please advise pt. Sayra Valencia LPN documented in this encounter [facility] 2021 Miscellaneous Notes Patient returned call and given provider's message below. Kellie Cuevas RN Left message for patient to return call to office Lucina Broderick Cma Let patient know that urine didn't show a true infection, only small amount of bacteria that was insignificant amount. If her symptoms worsen, change, or don't go away, please let me know. Padmini Solorzano PA-C documented in this encounter [facility] 12-09-2021 Miscellaneous Notes Call to pt and notified her of message below. Pt will be coming into the lab today around 12 pm to r do the Urine testing. Nazia Youssef Ma Let patient know that her labs are normal. Once she is able to get urine sample, we will contact her with those results. Padmini Solorzano PA-C documented in this encounter [facility] 12-09-2021 Miscellaneous Notes Order placed. Pt had trouble with urine sample today. May need new orders place for urine tests. She is coming back in 12/09/21 to do them again. documented in this encounter [facility] 12-08-2021 History of Presen t illness Narrative Chief Complaint Patient presents with: 6 Month Exam HPI Dianne Holly is a 70 year old female who presents here today for Chronic Medical Conditions.. Patient with hx of HTN, hyperlipidemia, COPD, Depression, GERD, obesity, smoker, BPPV, OA, DDD, OAB, b12 def, and those as below. Patient has had cough for the past week. Has been exposed to others with similar symptoms. Cough is productive. Patient smokes 1/2 ppd. She reports urinary frequency. Concerned for UTI. States she gets them fairly often and not always have full symptoms Her sister is currently in ICU with breast cancer that has spread to her lungs. She isn't doing well. Dianne has noted more anxiety due to this. She knows that if her Sister , she will start having panic attacks. Past medical history, appointments, medications, allergies reviewed. Previous Medical History PAST MEDICAL HISTORY Diagnosis Date Adenoma of left adrenal gland 12/06/2018 Seen [facility] ER CT 11/28/2018 was stable in size since CT done 11/2015: benign. ADRENAL NODULE 11/17/2007 Anxiety state 11/19/2006 Arthritis Benign neoplasm of colon BPPV (benign paroxysmal positional vertigo) 04/03/2015 Chronic left shoulder pain 09/17/2015 Class 3 severe obesity due to excess calories without serious comorbidity with body mass index (BMI) of 45.0 to 49.9 in adult ([facility]) 06/18/2014 Current use of proton pump inhibitor 11/23/2017 Mg checked 04/2018 DDD (degenerative disc disease), lumbar 01/15/2016 Delayed emergence from general anesthesia Diverticulitis of large intestine without perforation or abscess without bleeding 06/03/2016 Emphysema of lung ([facility]) 06/18/2014 Essential hypertension 11/19/2006 Gastroesophageal reflux disease without esophagitis 11/19/2006 Generalized osteoarthrosis, unspecified site 11/19/2006 Internal hemorrhoids Medicare annual wellness visit, initial 11/23/2017 Medicare Part B: 11/29/2016 last done: 11/16/2018 Mixed hyperlipidemia 03/19/2008 Osteoarthritis of lumbar spine 01/15/2016 Osteoarthritis of multiple joints 11/19/2006 Overactive bladder 01/16/2019 Primary osteoarthritis of right hip 09/21/2016 Primary ovarian failure 11/23/2017 Recurrent major depressive disorder, in remission ([facility]) 11/23/2017 Smoker 05/27/2010 Status post right hip replacement 10/01/2017 Venous insufficiency (chronic) (peripheral) 10/16/2014 Vertigo 06/14/2017 Previous Surgical History PAST SURGICAL HISTORY Procedure Laterality Date ARTHROSCOPY KNEE DIAGNOSTIC W/WO SYNOVIAL BX SPX 2001 Arthroscopy, knee right ARTHRP ACETBLR/PROX FEM PROSTC AGRFT/ALGRFT Right 06/23/2017 Hip replacement, total BREAST SURGERY HX COLONOSCOPY 07/24/2021 COLONOSCOPY & POLYPECTOMY 06/16/2016 repeat 5 years COLONOSCOPY W/BIOPSY SINGLE/MULTIPLE 04/01/2009 EGD TRANSORAL BIOPSY SINGLE/MULTIPLE 06/22/2012 [facility] Dr Marroquin FRACTURE SURGERY JOINT REPLACEMENT HX LIG/TRNSXJ FLP TUBE ABDL/VAG APPR UNI/BI 1973 Tubal ligation PAST SURGICAL HISTORY OF 1984 ovarian cyst PAST SURGICAL HISTORY OF 2006 right breast removed bonnie. tumor PAST SURGICAL HISTORY OF 05/2008 bilateral eye lid surgery REM LESIO TRUNK,ARM,LEG 1.1 -2.0CM 12/22/2006 Exc. right lower back skin lesion SKIN BIOPSY HX TOTAL ABDOMINAL HYSTERECT W/WO RMVL TUBE OVARY 1987 Hysterectomy, EDWINA - ovaries remain VAGINAL HYSTERECTOMY Family History FAMILY HISTORY Problem Relation Age of Onset Colon Cancer Mother Diabetes Mother rectal cancer/kidney failure other (skin cancer) Father other (obese) Sister hypertension Colon Cancer Sister Breast Cancer Sister 55 triple negative Blood Disease Sister amyloidosis other (obese) Brother Coronary Artery Disease Brother 47 1st AMI Heart Attack Brother other (Liver Issues) Daughter Alcohol/Drug Daughter Patient Allergies ALLERGIES Allergen Reactions Flagyl [Metronidazo* Itching, Other: See Comments nausea/ throat swelling Ibuprofen Vomiting Hematemesis - [facility] 06/21/2012 Nickel Rash Can only wear gold earrings Current Medications Current Outpatient Medications on File Prior to Visit Medication Sig triamcinolone acetonide (KENALOG) 0.1 % cream Apply 1 application to affected area three times daily. Apply sparingly to area for rash/itching. cyanocobalamin (VITAMIN B-12) 1,000 mcg tab Take 1 tablet by mouth once daily. solifenacin (VESICARE) 5 mg tablet Take 1 tablet by mouth once daily. fluticasone furoate (ARNUITY ELLIPTA) 100 mcg/actuation inhaler Inhale 1 Puff as instructed once daily. Do a quick inhalation prior to brushing teeth. Then brush teeth, rinse, gargle and spit. buPROPion SR (WELLBUTRIN SR) 150 mg 12 hr tablet Take 1 tablet by mouth once daily. lisinopril-hydroCHLOROthiazide (PRINZIDE,ZESTORETIC) 20-12.5 mg per tablet Take 2 tablets by mouth once daily. omeprazole (PRILOSEC) 20 mg capsule Take 1 capsule by mouth once daily. ondansetron orally disintegrating (ZOFRAN ODT) 4 mg disintegrating tablet Take 1 tablet by mouth every 8 hours as needed. pravastatin (PRAVACHOL) 40 mg tablet Take 1 tablet by mouth daily at bedtime. sertraline (ZOLOFT) 100 mg tablet Take 1 tablet by mouth every evening. verapamil SR (CALAN SR, ISOPTIN SR) 180 mg CR tablet Take 1.5 tablets by mouth once daily. albuterol HFA (PROVENTIL HFA, VENTOLIN HFA) 90 mcg/actuation inhaler Inhale 2 Puffs as instructed every 6 hours as needed. MEDICAL SUPPLY BEDSIDE COMMODE. dx: right total hip replacement. z96.641 COMPOUNDED PRESCRIPTION Bedside Commode Dx: right total hip replacement Z96.641 peg 3350-Electrolytes (GOLYTELY) 236-22.74-6.74 -5.86 gram suspension Refer to printed prep instructions from your provider. (Patient not taking: Reported on 12/08/2021) diphenhydrAMINE (BENADRYL) 25 mg capsule Take 1-2 at hs (Patient not taking: Reported on 12/08/2021) predniSONE (DELTASONE) 10 mg tablet Take 4 tabs daily for 3 days, then 2 tabs daily for 3 days, then 1 tab daily for 3 days with food. (Patient not taking: Reported on 12/08/2021) COMPOUNDED PRESCRIPTION Bath Bed Bench Dx: right total hip replacement Z96.641 (Patient not taking: Reported on 12/08/2021) No current facility-administered medications on file prior to visit. Social History Social History Tobacco Use Smoking status: Every Day Packs/day: 0.40 Years: 40.00 Pack years: 16.00 Types: Cigarettes Start date: 03/01/1967 Smokeless tobacco: Never Tobacco comments: recently cut back to 03/02 ppd Vaping Use Vaping Use: Never used Substance Use Topics Alcohol use: Yes Comment: rare Drug use: No Review of Symptoms REVIEW OF SYSTEMS GENERAL: No weight loss, malaise or fevers NECK: Negative for lumps, goiter, pain and significant neck swelling RESPIRATORY: See HPI CARDIOVASCULAR: Negative for chest pain, leg swelling, hypertension, CHF or palpitations NEURO: No history of headaches, syncope, paralysis, seizures or tremors EXAM: BP 144/82 (BP Site: Left Arm, BP Position: Sitting, BP Cuff Size: Large Adult) Pulse 68 Temp 37.1 C (98.7 F) Resp 18 Wt 116.6 kg (257 lb) BMI 45.53 kg/m BP 144/82 (BP Site: Left Arm, BP Position: Sitting, BP Cuff Size: Large Adult) Pulse 68 Temp 37.1 C (98.7 F) Resp 18 Wt 116.6 kg (257 lb) BMI 45.53 kg/m General Appearance: Well appearing, alert, in no acute distress, well-hydrated, well nourished.. Neck: Supple, no adenopathy; thyroid symmetric, normal size, no bruits. Lungs: Lungs clear to auscultation. No wheezing, rhonchi, rales.. Heart: RRR without murmur, gallop, or rubs. No ectopy. Extremities: No deformities, edema, skin discoloration, clubbing or cyanosis. Good capillary refill. . Peripheral Pulses: Normal. Health Maintenance List ALPHA-1 ANTITRYPSIN DEFICIENCY SCREENING Never done SHINGRIX VACCINE(1 of 2) Never done DTAP,TDAP,TD(2 - Td or Tdap) due on 05/14/2020 COVID-19 VACCINE(3 - Booster for Pfizer series) due on 12/04/2020 BP CONTROLLED (<130/80) due on 08/13/2021 INFLUENZA(1) due on 10/30/2021 MAMMOGRAM due on 02/11/2022 ANNUAL PCP TEAM CHRONIC DISEASE VISIT due on 05/26/2022 DIABETES SCREEN due on 04/22/2024 COLORECTAL CANCER SCREENING due on 07/24/2024 LIPID SCREEN due on 04/22/2026 BONE DENSITY Completed SPIROMETRY Completed ADVANCE DIRECTIVE DISCUSSION Completed HEPATITIS C SCREENING Completed PNEUMOCOCCAL: 65+ Completed Data reviewed ASSESSMENT/PLAN: 1. Essential hypertension - ICD9: 401.9, ICD10: I10 (primary diagnosis) - fair control - Continue current medication(s) - Recommended regular aerobic exercise. - Recommend home blood pressure monitoring, to bring results in on next visit - mildly increased with current stress. Will monitor - Goal of BP <130/80 - LISINOPRIL 20 MG-HYDROCHLOROTHIAZIDE 12.5 MG TABLET - CBC + DIFF - COMP METABOLIC PANEL 2. Mixed hyperlipidemia - ICD9: 272.2, ICD10: E78.2 - await labs - Encouraged following a low carbohydrate, healthy oil intake diet. - Continue current therapy. - LIPID PANEL, NONFASTING 3. Benign paroxysmal positional vertigo, unspecified laterality - ICD9: 386.11, ICD10: H81.10 stable 4. Smoker - ICD9: 305.1, ICD10: F17.200 - Cessation encouraged. - Physiologic and physical aspects of tobacco addiction as well as strategies for quitting were discussed. - Counseling was given focusing on the harmful effects of this addiction especially given the patient's medical condition(s) which will be worsened because of the chemicals in tobacco. 5. Depression, unspecified depression type - ICD9: 311, ICD10: F32.A Stable. Will monitor - SERTRALINE 100 MG TABLET 6. Class 3 severe obesity due to excess calories without serious comorbidity with body mass index (BMI) of 45.0 to 49.9 in adult ([facility]) - ICD9: 278.01, V85.42, ICD10: E66.01, Z68.42 Stable - Behavioral intervention - CBC + DIFF - COMP METABOLIC PANEL 7. Pulmonary emphysema, unspecified emphysema type (HCC) - ICD9: 492.8, ICD10: J43.9 stable - ALBUTEROL SULFATE HFA 90 MCG/ACTUATION AEROSOL INHALER 8. Vitamin B12 deficiency - ICD9: 266.2, ICD10: E53.8 9. Recurrent major depressive disorder, in remission (HCC) - ICD9: 296.35, ICD10: F33.40 As above 10. Anxiety state - ICD9: 300.00, ICD10: F41.1 As above - BUPROPION HCL SR 150 MG TABLET,12 HR SUSTAINED-RELEASE - SERTRALINE 100 MG TABLET 12. Urinary frequency - ICD9: 788.41, ICD10: R35.0 acute - Patient education for prevention given - URINE CULTURE - URINALYSIS, WITH MICROSCOPIC 13. Screening mammogram for breast cancer - ICD9: V76.12, ICD10: Z12.31 - Follow up for annual exam in one year. - YULIA SCREENING Padmini Solorzano PA-C documented in this encounter [facility] 09-16-2021 Instructions Nettie Sanchez PA-C - 09/16/2021 2:45 PM EDT The following instructions are important for you related to your office visit today with the [facility] General Surgeons. INSTRUCTIONS FOLLOWING A POLYP FOUND AT COLONOSCOPY You were found to have adenomatous colon polyps. I recommend you undergo repeat endoscopy in 3-5 years. If you note bleeding, change in bowel habits, or other suspicious colon related symptoms before that time, those symptoms should be evaluated as necessary. If you have any difficulties or concerns, you should contact our office immediately. INSTRUCTIONS FOR DIVERTICULA I recommend that you continue on a high-fiber diet. Avoidance of seeds is not necessary in general. Recent studies have demonstrated that seeds do not increase you risk of developing diverticulitis. If specific foods tend to cause discomfort, those should be avoided. Signs of diverticulitis (inflammation of diverticulosis) include - abdominal distention, fever, abdominal pain typically in the left lower quadrant, and changes of bowel habits. If these symptoms appear, you are instructed to contact our office immediately. If you note any additional difficulties or concerns, you should contact our office immediately. If you note any additional difficulties, questions, or concerns, you should contact our office immediately @ [phone] and ask to be transferred to the General Surgery department. documented in this encounter [facility] 09-16-2021 History of Presen t illness Narrative FOLLOW UP VISIT - ENDOSCOPY NAME: Dianne Holly [facility] NO.: [id number] DATE OF SERVICE: 09/16/2021 : 1950 REFERRING PHYSICIAN: Dewayne Chung MD Dianne is a patient I am following with Dr. Corral for history of colon polyps. Dr. Corral performed lower endoscopy on 07/24/21. The patient was found to have sigmoid diverticulosis, hemorrhoids, as well as two small polyps in the descending colon which were removed. Pathology demonstrated: FINAL DIAGNOSIS A. Colon, descending, polyps, biopsy: - Fragments of tubular adenoma. The patient notes no complaints since the procedure. VITALS: There were no vitals taken for this visit. General: patient is alert, cooperative, pleasant and in no acute distress On examination, the abdomen is benign. Assessment IMPRESSION: s/p colonoscopy with polypectomy PLAN: The operative findings and pathology report were reviewed with the patient, and the patient has had the opportunity to ask questions and have questions answered. If the patient notes any problems or changes in bowel function, the patient should contact me immediately. Otherwise I recommend follow up endoscopy in 3-5 years. HM updated and recall letter generated. Patient verbalized understanding of all above and agreed with the plan Diagnoses: (D36.9) Tubular adenoma (primary encounter diagnosis) (K57.90) Diverticulosis (K64.8) Internal hemorrhoids (Z87.19) History of colonic diverticulitis I spent a total of 23 minutes on the date of the service which included preparing to see the patient, [id number] patient care, completing clinical documentation, obtaining and/or reviewing separately obtained history, communicating with other HCPs (not separately reported), independently interpreting results (not separately reported) and communicating results to the patient/family/caregiver. Nettie Sanchez PA-C documented in this encounter [facility] 07-24-2021 Nurse Note Abdomen soft. Patient passing flatus. Patient denies discomfort. Marissa Santiago RN Arrived in phase II via cart. Left lateral position. Sedated, but responds to verbal stimuli. Color normal; skin warm and dry. Respirations wnl and unlabored. Abdomen soft and with + bowel sounds in quads X 4. Patient resting comfortably. Dr. Corral at bedside to review procedure and recommendations. Marissa Santiago RN documented in this encounter [facility] 07-24-2021 History and physical note Images from the original note were not included. HISTORY AND PHYSICAL Dianne Holly 1950 REFERRING PHYSICIAN: Padmini Solorzano PA-C CHIEF COMPLAINT: Consult (colonoscopy) HPI: The patient is a 70 year old female referred for endoscopy. Dianne notes the following GI complaints: Dianne denies abdominal pain.. Dianne denies diarrhea. Dianne notes constipation. Dianne notes occasional a change in bowel habits. Dianne denies melena. Dianne denies bright red blood per rectum. Dianne notes hemorrhoids. The patient notes the following upper complaints: Dianne denies abdominal pain.. Dianne notes occasional heartburn. Dianne denies dysphagia. Dianne denies a history of ulcers/ peptic ulcer disease. Dianne has undergone prior endoscopy. 05/2016 + TA polyp The patient is being seen by me today at the request of Dr. Solorzano for my opinion and advice regarding History of colonic polyps. PAST MEDICAL HISTORY PAST MEDICAL HISTORY Diagnosis Date Adenoma of left adrenal gland 12/06/2018 Seen [facility] ER CT 11/28/2018 was stable in size since CT done 11/2015: benign. ADRENAL NODULE 11/17/2007 Anxiety state 11/19/2006 Benign neoplasm of colon BPPV (benign paroxysmal positional vertigo) 04/03/2015 Chronic left shoulder pain 09/17/2015 Class 3 severe obesity due to excess calories without serious comorbidity with body mass index (BMI) of 45.0 to 49.9 in adult ([facility]) 06/18/2014 Current use of proton pump inhibitor 11/23/2017 Mg checked 04/2018 DDD (degenerative disc disease), lumbar 01/15/2016 Diverticulitis of large intestine without perforation or abscess without bleeding 06/03/2016 Emphysema of lung ([facility]) 06/18/2014 Essential hypertension 11/19/2006 Gastroesophageal reflux disease without esophagitis 11/19/2006 Generalized osteoarthrosis, unspecified site 11/19/2006 Internal hemorrhoids Medicare annual wellness visit, initial 11/23/2017 Medicare Part B: 11/29/2016 last done: 11/16/2018 Mixed hyperlipidemia 03/19/2008 Osteoarthritis of lumbar spine 01/15/2016 Osteoarthritis of multiple joints 11/19/2006 Overactive bladder 01/16/2019 Primary osteoarthritis of right hip 09/21/2016 Primary ovarian failure 11/23/2017 Recurrent major depressive disorder, in remission ([facility]) 11/23/2017 Smoker 05/27/2010 Status post right hip replacement 10/01/2017 Venous insufficiency (chronic) (peripheral) 10/16/2014 Vertigo 06/14/2017 PAST SURGICAL HISTORY PAST SURGICAL HISTORY Procedure Laterality Date ARTHROSCOPY KNEE DIAGNOSTIC W/WO SYNOVIAL BX SPX 2001 Arthroscopy, knee right ARTHRP ACETBLR/PROX FEM PROSTC AGRFT/ALGRFT Right 06/23/2017 Hip replacement, total COLONOSCOPY & POLYPECTOMY 06/16/2016 repeat 5 years COLONOSCOPY W/BIOPSY SINGLE/MULTIPLE 04/01/09 EGD TRANSORAL BIOPSY SINGLE/MULTIPLE 06-22-12 [facility] [place] LIG/TRNSXJ FLP TUBE ABDL/VAG APPR UNI/BI 1973 Tubal ligation PAST SURGICAL HISTORY OF 1984 ovarian cyst PAST SURGICAL HISTORY OF 2006 right breast removed bonnie. tumor PAST SURGICAL HISTORY OF 06/07 bilateral eye lid surgery REM LESIO TRUNK,ARM,LEG 1.1 -2.0CM 12/22/06 Exc. right lower back skin lesion TOTAL ABDOMINAL HYSTERECT W/WO RMVL TUBE OVARY 1987 Hysterectomy, EDWINA - ovaries remain CURRENT MEDICATIONS Current Outpatient Medications Medication Sig nitrofurantoin monohydrate and macrocrystal (MACROBID) 100 mg capsule Take 1 capsule by mouth twice daily with meals for 7 days. triamcinolone acetonide (KENALOG) 0.1 % cream Apply 1 application to affected area three times daily. Apply sparingly to area for rash/itching. diphenhydrAMINE (BENADRYL) 25 mg capsule Take 1-2 at hs cyanocobalamin (VITAMIN B-12) 1,000 mcg tab Take 1 tablet by mouth once daily. solifenacin (VESICARE) 5 mg tablet Take 1 tablet by mouth once daily. fluticasone furoate (ARNUITY ELLIPTA) 100 mcg/actuation inhaler Inhale 1 Puff as instructed once daily. Do a quick inhalation prior to brushing teeth. Then brush teeth, rinse, gargle and spit. buPROPion SR (WELLBUTRIN SR) 150 mg 12 hr tablet Take 1 tablet by mouth once daily. lisinopril-hydroCHLOROthiazide (PRINZIDE,ZESTORETIC) 20-12.5 mg per tablet Take 2 tablets by mouth once daily. omeprazole (PRILOSEC) 20 mg capsule Take 1 capsule by mouth once daily. ondansetron orally disintegrating (ZOFRAN ODT) 4 mg disintegrating tablet Take 1 tablet by mouth every 8 hours as needed. pravastatin (PRAVACHOL) 40 mg tablet Take 1 tablet by mouth daily at bedtime. sertraline (ZOLOFT) 100 mg tablet Take 1 tablet by mouth every evening. verapamil SR (CALAN SR, ISOPTIN SR) 180 mg CR tablet Take 1.5 tablets by mouth once daily. albuterol HFA (PROVENTIL HFA, VENTOLIN HFA) 90 mcg/actuation inhaler Inhale 2 Puffs as instructed every 6 hours as needed. MEDICAL SUPPLY BEDSIDE COMMODE. dx: right total hip replacement. z96.641 predniSONE (DELTASONE) 10 mg tablet Take 4 tabs daily for 3 days, then 2 tabs daily for 3 days, then 1 tab daily for 3 days with food. (Patient not taking: Reported on 06/30/2021 ) COMPOUNDED PRESCRIPTION Bedside Commode Dx: right total hip replacement Z96.641 (Patient not taking: Reported on 06/30/2021 ) COMPOUNDED PRESCRIPTION Bath Bed Bench Dx: right total hip replacement Z96.641 (Patient not taking: Reported on 06/30/2021 ) No current facility-administered medications for this visit. ALLERGIES: Flagyl [Metronidazole Hcl], Ibuprofen, and Nickel PERSONAL HISTORY: SOCIAL HISTORY Social History Tobacco Use Smoking status: Current Every Day Smoker Packs/day: 0.40 Years: 40.00 Pack years: 16.00 Types: Cigarettes Start date: 03/01/1967 Smokeless tobacco: Never Used Tobacco comment: recently cut back to 03/02 ppd Vaping Use Vaping Use: Never used Substance Use Topics Alcohol use: Yes Comment: rare Drug use: No FAMILY HISTORY: FAMILY HISTORY FAMILY HISTORY Problem Relation Age of Onset Colon Cancer Mother Diabetes Mother rectal cancer/kidney failure other (skin cancer) Father other (obese) Sister hypertension Colon Cancer Sister Breast Cancer Sister 55 triple negative Blood Disease Sister amyloidosis other (obese) Brother Coronary Artery Disease Brother 47 1st AMI Heart Attack Brother other (Liver Issues) Daughter Alcohol/Drug Daughter REVIEW OF SYMPTOMS: The review of systems data was entered by the nurse and reviewed by hi Nursing Notes: Lulú Heard RN 06/30/2021 3:50 PM Signed REVIEW OF SYSTEMS: General: The patient denies fatigue, denies weight loss, denies weight gain, denies feeling hot, and denies feelings of cold. Eyes: The patient denies glaucoma, denies eye injury/surgery, wears glasses or contacts. Ear/Nose/Throat: The patient denies allergies, denies hayfever, denies ear infections, and denies bloody noses. Cardiovascular: The patient denies chest pain, denies heart disease, NOTES high blood pressure,denies cardiac stent, denies prior heart attack, denies irregular heart beat, NOTES high cholesterol, denies poor circulation, denies heart failure, other cardiac issues, denies claudication, denies cold feet, denies peripheral arterial stent. Respiratory: The patient denies tuberculosis, denies pneumonia, NOTES frequent cough, denies pulmonary embolism, denies shortness of breath, and denies coughing up blood. Gastrointestinal: The patient denies difficulty swallowing, NOTES acid reflux, denies ulcers, denies vomiting, denies jaundice/hepatitis, denies gallbladder problems, denies black or tarry stools, NOTES hemorrhoids, denies bleeding from rectum, NOTES diverticulitis, NOTES constipation, denies diarrhea, denies loss of stool control, and denies hernias. Kidney/Bladder: The patient denies kidney stones, NOTES urine infections, and denies bloody urine. Skin: The patient denies a history of skin cancer, denies bleeding/changing moles, and denies a history of skin rash. Neurologic: The patient denies a history of epilepsy/convulsions, denies headaches, denies head/spinal injuries, and denies stroke/TIA. Psychiatric: The patient denies psychiatric medications, denies depression, and denies voices, denies substance abuse. Endocrine: The patient denies thyroid disorders, denies diabetes, and denies hormonal problems. Hematologic: The patient denies a history of bruising, denies bleeding, and denies anemia, denies blood clots. Infections: The patient denies a history of measles and mumps, denies rheumatic fever, and denies sexually transmitted diseases. Musculoskeletal: The patient denies back pain/injury, denies back problems, denies sciatica, denies knee/foot trouble, denies arthritis, or denies gout. When was patient's last Mammogram screening? 2021 Last Colonoscopy: 2016 Lulú Heard RN PHYSICAL EXAMINATION: General: The patient is 70 year old female, well nourished, well hydrated in no acute distress. The patient is oriented to time, place, and person. VITALS: Blood pressure 126/84, pulse 91, temperature 36.4 C (97.6 F), height 160 cm (5' 3 ), weight 119.3 kg (263 lb), SpO2 95 %. Body mass index is 46.59 kg/m . HEENT: Normal cephalic, ataumatic, pupils are equally round, sclera are anicteric, mucous membranes are moist, oropharynx is clear. Neck has no masses, asymmetry or lymphadenopathy. Thyroid is unremarkable. Respiratory: Clear to auscultation and percussion. Normal respiratory excursion and pattern. Cardiac: Examination is regular rate and rhythm. Abdominal exam: Soft, nontender, with no palpable masses. No hepatosplenomegaly. No palpable hernias. Rectal exam: exam deferred Extremities: no clubbing, cyanosis or edema. No adenopathy. Other: LABORATORY VALUES: As Noted RADIOLOGIC STUDIES: As Noted Assessment IMPRESSION: History of colonic polyps PLAN: I plan to perform lower endoscopy. We discussed the risks and benefits of the planned endoscopy. I have informed the patient that complications can occur including failure to complete the endoscopy and perforation. The patient had the opportunity to ask questions concerning the planned endoscopy. My staff has also explained the procedure to the patient in understandable terms and has given the patient printed material concerning the procedure. The patient freely consents to surgery. I plan to use golytely bowel preparation for endoscopy Diagnoses: (Z86.010) History of colonic polyps My findings have been communicated to Dewayne Chung MD via shared medical record. This note will be forwarded to Dewayne Chung MD. Return to Clinic: The patient is instructed to follow-up with me 1 week post operatively. COVID (Procedure Consent) Procedure Criteria Procedure Criteria: Yes Elective The surgeon/proceduralist and patient have discussed in detail the risk of exposure to and/or potential harm posed by the COVID-19 virus with having a surgery/procedure at this time versus the risk of delaying the surgery/procedure. It is not possible to know either the risk of delaying the surgery or procedure or chance of getting an infection with perfect accuracy, but a joint decision was made between the patient and the surgeon/proceduralist to proceed at this time with the scheduled surgery/procedure as indicated on the consent form. Anticipated Surgical Procedure/ CPT Code: Colonoscopy with or without biopsies based on clinical findings Anticipated Anesthetic: con sedation Patient weight: Blood pressure 126/84, pulse 91, temperature 36.4 C (97.6 F), height 160 cm (5' 3 ), weight 119.3 kg (263 lb), SpO2 95 %. BMI: Body mass index is 46.59 kg/m . Planned antibiotic: none SCDs needed: No Block Breaker Needed: No Pre Op Clearance: None Anticoagulation: No Diabetic: No Location: [facility] Douglas Corral III, MD UPDATED HISTORY AND PHYSICAL EXAMINATION SERVICE DATE: 07/24/2021 SERVICE TIME: 9:02 AM PHYSICAL EXAM MUST BE COMPLETED ON ADMISSION The History and Physical (completed in the past 30 days) has been reviewed and the patient has been examined. The contents accurately reflect the patient's condition with the following additions or revisions since the H&P was completed. Examination indicates no changes. This H&P can be found in the attached. SIGNATURE: Douglas Corral III, MD PATIENT NAME: Dianne Holly DATE: July 24, 2021 TIME: 9:02 AM documented in this encounter [facility] 07-10-2021 Miscellaneous Notes Pt advised of same. Pt states she has not had any more episodes so she will continue to monitor. Thinks it is from a greasy burger that she had last night. Kina Villegas LPN She can come in to be evaluated for this. Especially if not improving. Padmini Solorzano PA-C Spoke with pt. States this is new onset and started last night. Advised pt she would be contacted if any further instructions after review by Padmini. Kina Villegas LPN Is the diarrhea new? Or is she still having it from 06/23? Padmini Solorzano PA-C Pt states she has more energy & does feel better than she had. Denies urinary frequency, urgency or pain with urination. No fever. Pt states she has had 3 watery diarrhea stools since last pm. Slight stomach cramps. Paris Silva LPN Attempted to contact pt. No answer and vm is full. Sent pt msg via asking her to speak with a Triage Nurse. Kina Villegas LPN Culture appears contaminated during her collection process. How is she feeling? documented in this encounter [facility] 06-30-2021 Miscellaneous Notes 07-24-2021 COLON ASC documented in this encounter [facility] 06-23-2021 Miscellaneous Notes Patient is aware. Sarita Roberson MA Let patient know culture on urine is pending. Patient notified and voiced understanding. She did indicated that came to the lab to have another Urine completed per provider request. Sarita Roberson MA ----- Message from Padmini Solorzano PA-C sent at 06/23/2021 12:43 PM EDT ----- Bone density is normal. documented in this encounter [facility] 06-23-2021 History of Presen t illness Narrative Radiology Service Progress Note PATIENT NAME: Dianne Holly DATE OF SERVICE: June 23, 2021 TIME: 11:30 AM PATIENT IDENTITY VERIFICATION COMPLETED USING TWO (2) IDENTIFIERS: Name and Date of confirmed by patient verbally. FALL SCREENING: Has the patient had 2 falls in the last year or 1 fall with injury or currently using an Ambulatory Assistive Device (Walker, Cane, Wheelchair, Crutches, etc.)? No PATIENT GENDER DATA: Female. status: : No status: NO. PATIENT RELEVANT IMPLANT DATA REVIEWED: Not Applicable RADIOLOGY DEPARTMENT: Bone Density PERIPHERAL IV DATA: Not applicable SIGNED BY: RT Mikel(R) June 23, 2021 11:30 AM documented in this encounter [facility] 05-29-2021 Miscellaneous Notes Patient notified of results and provider's instructions. Patient verbalizes understanding. Kina Villegas LPN Urine did show infection. atb sent. Repeat culture in 2 weeks to make sure goes away with this atb. Thanks. Padmini Solorzano PA-C documented in this encounter [facility] 05-26-2021 Instructions Padmini Solorzano PA-C - 05/26/2021 12:32 PM EDT BONE MINERAL DENSITY PATIENT INSTRUCTIONS ========= Bone mineral density testing measures the amount of calcium in certain parts of your bones. This information determines how strong your bones are. The test is used to detect osteoporosis, a disease in which the bone's mineral content and density are low, increasing a person's risk of fractures. The lumbar spine (lower back) and the hip are the skeletal sites usually examined. For the test, remember that: 1. You cannot take this test if you are . 2. Eat a normal diet on the day of the test. 3. Take your medications as you normally would. 4. DO NOT take calcium supplements (such as Tums) for 24 hours before the test. 5. On the day of the test, leave valuables (jewelry or credit cards) at home. 6. The test should be performed prior to oral, rectal or IV contrast studies, or at least 7 days after any of these studies. For the test, you may be asked to wear a hospital gown. You will lie on your back, on a padded table, in a comfortable position. Generally, you can resume your usual activities immediately. documented in this encounter [facility] 05-26-2021 History of Presen t illness Narrative Welcome To Medicare Visit Medical B eligibility date 11/29/2016 Date of last exam 01/29/2020 PAST MEDICAL HISTORY Diagnosis Date Adenoma of left adrenal gland 12/06/2018 Seen [facility] ER CT 11/28/2018 was stable in size since CT done 11/2015: benign. ADRENAL NODULE 11/17/2007 Anxiety state 11/19/2006 Benign neoplasm of colon BPPV (benign paroxysmal positional vertigo) 04/03/2015 Chronic left shoulder pain 09/17/2015 Class 3 severe obesity due to excess calories without serious comorbidity with body mass index (BMI) of 45.0 to 49.9 in adult ([facility]) 06/18/2014 Current use of proton pump inhibitor 11/23/2017 Mg checked 04/2018 DDD (degenerative disc disease), lumbar 01/15/2016 Diverticulitis of large intestine without perforation or abscess without bleeding 06/03/2016 Emphysema of lung ([facility]) 06/18/2014 Essential hypertension 11/19/2006 Gastroesophageal reflux disease without esophagitis 11/19/2006 Generalized osteoarthrosis, unspecified site 11/19/2006 Internal hemorrhoids Medicare annual wellness visit, initial 11/23/2017 Medicare Part B: 11/29/2016 last done: 11/16/2018 Mixed hyperlipidemia 03/19/2008 Osteoarthritis of lumbar spine 01/15/2016 Osteoarthritis of multiple joints 11/19/2006 Overactive bladder 01/16/2019 Primary osteoarthritis of right hip 09/21/2016 Primary ovarian failure 11/23/2017 Recurrent major depressive disorder, in remission (HCC) 11/23/2017 Smoker 05/27/2010 Status post right hip replacement 10/01/2017 Venous insufficiency (chronic) (peripheral) 10/16/2014 Vertigo 06/14/2017 PAST SURGICAL HISTORY Procedure Laterality Date ARTHROSCOPY KNEE DIAGNOSTIC W/WO SYNOVIAL BX SPX 2001 Arthroscopy, knee right ARTHRP ACETBLR/PROX FEM PROSTC AGRFT/ALGRFT Right 06/23/2017 Hip replacement, total COLONOSCOPY & POLYPECTOMY 06/16/2016 repeat 5 years COLONOSCOPY W/BIOPSY SINGLE/MULTIPLE 04/01/09 EGD TRANSORAL BIOPSY SINGLE/MULTIPLE 06-22-12 [facility] Dr Marroquin LIG/TRNSXJ FLP TUBE ABDL/VAG APPR UNI/BI 1973 Tubal ligation PAST SURGICAL HISTORY OF 1984 ovarian cyst PAST SURGICAL HISTORY OF 2006 right breast removed bonnie. tumor PAST SURGICAL HISTORY OF 06/07 bilateral eye lid surgery REM LESIO TRUNK,ARM,LEG 1.1 -2.0CM 12/22/06 Exc. right lower back skin lesion TOTAL ABDOMINAL HYSTERECT W/WO RMVL TUBE OVARY 1987 Hysterectomy, EDWINA - ovaries remain Flagyl [Metronidazole Hcl], Ibuprofen, and Nickel Medications reviewed: Yes FAMILY HISTORY Problem Relation Age of Onset Diabetes Mother rectal cancer/kidney failure other (skin cancer) Father other (obese) Sister hypertension other (obese) Brother Breast Cancer Sister 55 triple negative Coronary Artery Disease Brother 47 1st AMI Heart Attack Brother Blood Disease Sister amyloidosis other (Liver Issues) Daughter Alcohol/Drug Daughter SOCIAL HISTORY: Social History Tobacco Use Smoking status: Current Every Day Smoker Packs/day: 0.40 Years: 40.00 Pack years: 16.00 Types: Cigarettes Start date: 03/01/1967 Smokeless tobacco: Never Used Tobacco comment: recently cut back to 03/02 ppd Substance Use Topics Alcohol use: Yes Comment: rare Drug use: No Dianne gets minimal exercise. She watches her diet for sodium, low fat and low cholesterol some of the time. List of current specialists seen: none End of Live Planning discussed including patients advanced directive wishes: Yes I am willing to follow Dianne's advanced directives. PHQ-2 / Depression screen She in the past two weeks denies having felt down, depressed, hopeless or with little interest or pleasure in doing things. Functional Ability/Safety Screen 1. Was the patient's timed Up and Go test unsteady or longer than 30 seconds? No 2. Does the patient need help with the phone, transportation, shopping,preparing meals, housework, laundry, medications or managing money? No 3. Does your home have rugs in the hallway, lack of grab bars in the bathroom (Y), lack of handrails on the stairs or have poor lighting? No Hearing Evaluation: normal ASSESSMENT/PLAN: 70 year old female The following prevention plan was discussed during the office visit and provided to the patient: See below. Padmini Solorzano PA-C Chief Complaint Patient presents with: Medicare Wellness Exam HPI Dianne Holly is a 70 year old female who presents here today for extensive exam . Patient with hx of HTN, HLP, smoker, GERD, depression/anxiety as well as those as updated and reviewed below. Overall patient is doing well Does note some fatigue. No longer having any upper back pain or abdominal pain. Past medical history, appointments, medications, allergies reviewed. Previous Medical History PAST MEDICAL HISTORY Diagnosis Date Adenoma of left adrenal gland 12/06/2018 Seen [facility] ER CT 11/28/2018 was stable in size since CT done 11/2015: benign. ADRENAL NODULE 11/17/2007 Anxiety state 11/19/2006 Benign neoplasm of colon BPPV (benign paroxysmal positional vertigo) 04/03/2015 Chronic left shoulder pain 09/17/2015 Class 3 severe obesity due to excess calories without serious comorbidity with body mass index (BMI) of 45.0 to 49.9 in adult ([facility]) 06/18/2014 Current use of proton pump inhibitor 11/23/2017 Mg checked 04/2018 DDD (degenerative disc disease), lumbar 01/15/2016 Diverticulitis of large intestine without perforation or abscess without bleeding 06/03/2016 Emphysema of lung ([facility]) 06/18/2014 Essential hypertension 11/19/2006 Gastroesophageal reflux disease without esophagitis 11/19/2006 Generalized osteoarthrosis, unspecified site 11/19/2006 Internal hemorrhoids Medicare annual wellness visit, initial 11/23/2017 Medicare Part B: 11/29/2016 last done: 11/16/2018 Mixed hyperlipidemia 03/19/2008 Osteoarthritis of lumbar spine 01/15/2016 Osteoarthritis of multiple joints 11/19/2006 Overactive bladder 01/16/2019 Primary osteoarthritis of right hip 09/21/2016 Primary ovarian failure 11/23/2017 Recurrent major depressive disorder, in remission (HCC) 11/23/2017 Smoker 05/27/2010 Status post right hip replacement 10/01/2017 Venous insufficiency (chronic) (peripheral) 10/16/2014 Vertigo 06/14/2017 Previous Surgical History PAST SURGICAL HISTORY Procedure Laterality Date ARTHROSCOPY KNEE DIAGNOSTIC W/WO SYNOVIAL BX SPX 2001 Arthroscopy, knee right ARTHRP ACETBLR/PROX FEM PROSTC AGRFT/ALGRFT Right 06/23/2017 Hip replacement, total COLONOSCOPY & POLYPECTOMY 06/16/2016 repeat 5 years COLONOSCOPY W/BIOPSY SINGLE/MULTIPLE 04/01/09 EGD TRANSORAL BIOPSY SINGLE/MULTIPLE 06-22-12 [facility] Dr Marroquin LIG/TRNSXJ FLP TUBE ABDL/VAG APPR UNI/BI 1973 Tubal ligation PAST SURGICAL HISTORY OF 1984 ovarian cyst PAST SURGICAL HISTORY OF 2006 right breast removed bonnie. tumor PAST SURGICAL HISTORY OF 06/07 bilateral eye lid surgery REM LESIO TRUNK,ARM,LEG 1.1 -2.0CM 12/22/06 Exc. right lower back skin lesion TOTAL ABDOMINAL HYSTERECT W/WO RMVL TUBE OVARY 1987 Hysterectomy, EDWINA - ovaries remain Family History FAMILY HISTORY Problem Relation Age of Onset Diabetes Mother rectal cancer/kidney failure other (skin cancer) Father other (obese) Sister hypertension other (obese) Brother Breast Cancer Sister 55 triple negative Coronary Artery Disease Brother 47 1st AMI Heart Attack Brother Blood Disease Sister amyloidosis other (Liver Issues) Daughter Alcohol/Drug Daughter Patient Allergies ALLERGIES Allergen Reactions Flagyl [Metronidazo* Itching, Other: See Comments nausea/ throat swelling Ibuprofen Vomiting Hematemesis - [facility] 06/21/2012 Nickel Rash Can only wear gold earrings Current Medications Current Outpatient Medications on File Prior to Visit Medication Sig solifenacin (VESICARE) 5 mg tablet Take 1 tablet by mouth once daily. fluticasone furoate (ARNUITY ELLIPTA) 100 mcg/actuation inhaler Inhale 1 Puff as instructed once daily. Do a quick inhalation prior to brushing teeth. Then brush teeth, rinse, gargle and spit. buPROPion SR (WELLBUTRIN SR) 150 mg 12 hr tablet Take 1 tablet by mouth once daily. lisinopril-hydroCHLOROthiazide (PRINZIDE,ZESTORETIC) 20-12.5 mg per tablet Take 2 tablets by mouth once daily. omeprazole (PRILOSEC) 20 mg capsule Take 1 capsule by mouth once daily. ondansetron orally disintegrating (ZOFRAN ODT) 4 mg disintegrating tablet Take 1 tablet by mouth every 8 hours as needed. pravastatin (PRAVACHOL) 40 mg tablet Take 1 tablet by mouth daily at bedtime. sertraline (ZOLOFT) 100 mg tablet Take 1 tablet by mouth every evening. verapamil SR (CALAN SR, ISOPTIN SR) 180 mg CR tablet Take 1.5 tablets by mouth once daily. albuterol HFA (PROVENTIL HFA, VENTOLIN HFA) 90 mcg/actuation inhaler Inhale 2 Puffs as instructed every 6 hours as needed. predniSONE (DELTASONE) 10 mg tablet Take 4 tabs daily for 3 days, then 2 tabs daily for 3 days, then 1 tab daily for 3 days with food. (Patient not taking: Reported on 04/22/2021 ) MEDICAL SUPPLY BEDSIDE COMMODE. dx: right total hip replacement. z96.641 (Patient not taking: Reported on 08/13/2020 ) COMPOUNDED PRESCRIPTION Bedside Commode Dx: right total hip replacement Z96.641 (Patient not taking: Reported on 08/13/2020 ) COMPOUNDED PRESCRIPTION Bath Bed Bench Dx: right total hip replacement Z96.641 (Patient not taking: Reported on 08/13/2020 ) No current facility-administered medications on file prior to visit. Social History Social History Tobacco Use Smoking status: Current Every Day Smoker Packs/day: 0.40 Years: 40.00 Pack years: 16.00 Types: Cigarettes Start date: 03/01/1967 Smokeless tobacco: Never Used Tobacco comment: recently cut back to 03/02 ppd Substance Use Topics Alcohol use: Yes Comment: rare Drug use: No Review of Symptoms REVIEW OF SYSTEMS GENERAL: No weight loss, malaise or fevers HEENT: No changes in hearing or vision, no nose bleeds or other nasal problems NECK: Negative for lumps, goiter, pain and significant neck swelling RESPIRATORY: Negative for cough, hemoptysis, wheezing, COPD, dyspnea or shortness of breath CARDIOVASCULAR: Negative for chest pain, leg swelling, CHF or palpitations GI: Negative for abdominal discomfort, blood in stools or black stools, change in bowel habit, heart burn, nausea, vomiting : No history of dysuria, frequency or incontinence 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 TITLES: Negative for abnormal vaginal bleeding, abnormal vaginal discharge MUSCULOSKELETAL: +chronic back pain SKIN: Negative for lesions, rash, and itching PSYCH: Negative for sleep disturbance, mood disorder and recent psychosocial stressors HEMATOLOGY/LYMPHOLOGY: Negative for prolonged bleeding, bruising easily or swollen nodes ENDOCRINE: Negative for cold or heat intolerance, polyuria, polydipsia and goiter NEURO: No history of headaches, syncope, paralysis, seizures or tremors EXAM: BP 126/86 (BP Site: Left Arm, BP Position: Sitting, BP Cuff Size: Large Adult) Pulse 76 Temp 36.2 C (97.2 F) Resp 18 Ht 159.5 cm (5' 2.8 ) Wt 120.7 kg (266 lb) BMI 47.43 kg/m General Appearance: Well appearing, alert, in no acute distress, well-hydrated, well nourished. and Morbidly obese. Skin: Skin color, texture, turgor normal, no suspicious rashes or lesions. Head: Normocephalic, no masses, lesions, tenderness or abnormalities. Eyes: Anicteric sclera. Pupils are equally round and reactive to light. Extraocular movements are intact. . Ears: External ears normal, canals clear, TMs pearly alfaro. Nose/Sinuses: deferred- mask. Oropharynx: deferred- mask. Neck: Supple, no adenopathy; thyroid symmetric, normal size, no bruits. Lungs: Lungs clear to auscultation. No wheezing, rhonchi, rales.. Heart: RRR without murmur, gallop, or rubs. No ectopy. Abdomen: Normal abdominal exam, Abdomen soft, non-tender. Bowel sounds normal. No masses, organomegaly. Extremities: No deformities, edema, skin discoloration, clubbing or cyanosis. Good capillary refill. . Musculoskeletal: No joint swelling, deformity, or tenderness. Peripheral Pulses: Normal. Neurologic: Gait normal. Reflexes normal and symmetric. Sensation grossly intact.. Health Maintenance List SHINGRIX VACCINE(1 of 2) Never done INFLUENZA(1) due on 10/30/2020 ADVANCE DIRECTIVE DISCUSSION Never done COVID-19 VACCINE(3 - Booster for Pfizer series) due on 03/11/2021 COLORECTAL CANCER SCREENING due on 06/16/2021 DTAP,TDAP,TD(2 - Td or Tdap) due on 08/13/2021 MAMMOGRAM due on 02/11/2022 ANNUAL PCP TEAM CHRONIC DISEASE VISIT due on 04/22/2022 BP CONTROLLED (<130/80) due on 04/22/2022 DIABETES SCREEN due on 04/22/2024 LIPID SCREEN due on 04/22/2026 BONE DENSITY Completed SPIROMETRY Completed HEPATITIS C SCREENING Completed PNEUMOVAX AGE 65 AND OVER WITH 5YR LOOKBACK Completed MENINGOCOCCAL CONJUGATE Aged Out Data reviewed Component Latest Ref Rng & Units 04/22/2021 WBC 3.70 - 11.00 k/uL 8.58 RBC 3.90 - 5.20 m/uL 4.97 Hemoglobin 11.5 - 15.5 g/dL 14.7 Hematocrit 36.0 - 46.0 % 46.1 (H) MCV 80.0 - 100.0 fL 92.8 MCH 26.0 - 34.0 pG 29.6 MCHC 30.5 - 36.0 g/dL 31.9 RDW-CV 11.5 - 15.0 % 13.9 Platelet Count 150 - 400 k/uL 301 MPV 9.0 - 12.7 fL 10.4 Neut% % 68.8 Abs Neut (ANC) 1.45 - 7.50 k/uL 5.90 Lymph% % 20.0 Abs Lymph 1.00 - 4.00 k/uL 1.72 [place]% % 8.4 Abs [place] <0.87 k/uL 0.72 Eosin% % 1.9 Abs Eosin <0.46 k/uL 0.16 Baso% % 0.9 Abs Baso <0.11 k/uL 0.08 Nucleated Reds 0 /100 WBC 0.0 Absolute nRBC <0.01 k/uL <0.01 Diff Type Auto Diff Protein, Total 6.3 - 8.0 g/dL 7.1 Albumin 3.9 - 4.9 g/dL 4.3 Calcium 8.5 - 10.2 mg/dL 10.0 Bilirubin, Total 0.2 - 1.3 mg/dL 0.6 Alkaline Phosphatase 34 - 123 U/L 77 AST 13 - 35 U/L 17 Glucose 74 - 99 mg/dL 102 (H) BUN 7 - 21 mg/dL 26 (H) Creatinine 0.58 - 0.96 mg/dL 1.28 (H) Sodium 136 - 144 mmol/L 141 Potassium 3.7 - 5.1 mmol/L 3.9 Chloride 97 - 105 mmol/L 102 CO2 22 - 30 mmol/L 25 Anion Gap 9 - 18 mmol/L 14 ALT 7 - 38 U/L 17 eGFR- 50 eGFR-All Other Races . 41 Color Yellow Yellow Clarity Clear Slightly Cloudy (A) Glucose, Urine Negative mg/dL Negative Bilirubin, Urine Negative Negative Ketones, Urine Negative Negative Specific [place], Ur 1.005 - 1.030 1.017 Hemoglobin/Blood,Ur Negative 1+ (A) pH, Urine 5.0 - 8.0 5.0 Protein, Urine Negative Negative Urobilinogen Negative E.U./dL Negative Nitrites Negative Positive (A) Leukest Negative 2+ (A) Comment SEE COMMENT Urine Elvin Comment SEE COMMENT WBC, Urine 0 - 5 /HPF 11-25 (A) RBC, Urine 0 - 3 /HPF 0-3 Epithelial Cells /HPF SEE COMMENT Total Cholesterol, Nonfasting <200 mg/dL 160 Triglycerides, Nonfasting <150 mg/dL 129 HDL Cholesterol, Nonfasting >39 mg/dL 41 LDL Cholesterol, Nonfasting <100 mg/dL 93 Non HDL Cholesterol, Nonfasting <130 mg/dL 119 VLDL Cholesterol, Nonfasting <30 mg/dL 26 Total Chol/HDL Ratio, Nonfasting <5.10 mg/dL 3.90 LDL/HDL Ratio, Nonfasting <2.54 mg/dL 2.27 TSH 0.270 - 4.200 uU/mL 1.410 Lipase 16 - 61 U/L 19 Amylase 30 - 104 U/L 54 Magnesium 1.7 - 2.3 mg/dL 2.1 Vitamin B12 232 - 1,245 pg/mL 361 ASSESSMENT/PLAN: 1. Medicare annual wellness visit, initial - ICD9: V70.0, ICD10: Z00.00 (primary diagnosis) - Counseled on healthy diet and regular exercise - Calcium intake with supplements or by diet of 1000 mg/day for under 50, 2969-0625 mg/day for 50+ - Discussed need and benefit for weight loss. BMI 47.43 kg/(m^2) 2. Advance directive discussed with patient - ICD9: V65.49, ICD10: Z71.89 Paperwork given 3. Essential hypertension - ICD9: 401.9, ICD10: I10 - good control - Continue current medication(s) - Recommended regular aerobic exercise. - Recommend home blood pressure monitoring, to bring results in on next visit - Goal of BP <130/80 4. Mixed hyperlipidemia - ICD9: 272.2, ICD10: E78.2 - good control - Encouraged following a low fat, low cholesterol diet. - Discussed the benefits of regular aerobic exercise and weight loss. - Encouraged following a low carbohydrate, healthy oil intake diet. - Continue current therapy. 5. Vitamin B12 deficiency - ICD9: 266.2, ICD10: E53.8 Start b12 supplement. 6. Recurrent major depressive disorder, in remission (HCC) - ICD9: 296.35, ICD10: F33.40 stable 7. Pulmonary emphysema, unspecified emphysema type (HCC) - ICD9: 492.8, ICD10: J43.9 stable 8. Gastroesophageal reflux disease without esophagitis - ICD9: 530.81, ICD10: K21.9 - stable 9. Overactive bladder - ICD9: 596.51, ICD10: N32.81 stable 10. Class 3 severe obesity due to excess calories without serious comorbidity with body mass index (BMI) of 45.0 to 49.9 in adult (HCC) - ICD9: 278.01, V85.42, ICD10: E66.01, Z68.42 Last 5 Encounter Wt Readings: Date: Wt: 05/26/2021 120.7 kg (266 lb) 04/22/2021 121.1 kg (267 lb) 11/07/2020 122.2 kg (269 lb 6.4 oz) 08/13/2020 118.3 kg (260 lb 12.8 oz) 07/03/2020 119.4 kg (263 lb 3.2 oz) Stable - Behavioral intervention 11. Smoker - ICD9: 305.1, ICD10: F17.200 - Cessation encouraged. - Physiologic and physical aspects of tobacco addiction as well as strategies for quitting were discussed. - Counseling was given focusing on the harmful effects of this addiction especially given the patient's medical condition(s) which will be worsened because of the chemicals in tobacco. 12. Asymptomatic postmenopausal status - ICD9: V49.81, ICD10: Z78.0 check - DXA-AXIAL SKELETON 13. History of colonic polyps - ICD9: V12.72, ICD10: Z86.010 Set up c-scope - CONSULT TO GENERAL SURGERY 14. Benign paroxysmal positional vertigo, unspecified laterality - ICD9: 386.11, ICD10: H81.10 stable 15. Microscopic hematuria - ICD9: 599.72, ICD10: R31.29 Check: - URINALYSIS, WITH MICROSCOPIC - URINE CULTURE Padmini Solorzano PA-C documented in this encounter [facility] documented as of this encounter (statuses as of 06/16/2022) [facility]09[facility]2018 History of Past illness Narrative* Problem Noted Date Resolved Date Current use of proton pump inhibitor 11/23/2017 06/15/2022 Overview: Mg checked 04/2018 Osteoarthritis of right hip 06/23/201705/31 CKD (chronic kidney disease) stage 3, GFR 30-59 ml/min 03/12/2017 07/28/2017 Chronic midline low back pain without sciatica 0 11/09/2016 07/28/2017 Diverticulitis of large inte minerva without perforation or abscess without bleeding 06/03/2016 07/28/2017 Chronic right-sided low back pain without sciati ca 09/17/2015 07/28/2017 BPPV (benign paroxysmal positional vertigo) 04/201501/20/2016 Dizziness and giddiness 07/02/2011 06/19/19 COPD (chronic obstructive pulmonary disease) 06/18/2014 Abdominal pain, left lower quadrant 04/01/2009 06/18/2014 Internal hemorrhoids without mention of complica tion 04/01/2009 06/18/2014 HYPERGLYCEMIA 04/10/2008 01/20/2016 Palpitations 03/23/2008 06/18/2014 ADRENAL NODULE 11/17/2007 07/28/2017 Diverticulosis of large intestine 11/17/2007 07/28/2017 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 PERS HX TOBACCO USE 11/21/2006 06/18/2014 OVERWEIGHT 11/19/2006 06/18/2014 documented as of this encounter (statuses as of 06/19/2022) [facility] History of Past illness Narrative* Problem Noted Date Resolved Date Current use of proton pump inhibitor 11/23/2017 06/15/2022 Overview: Mg checked 04/2018 Osteoarthritis of right hip 06/23/201705/31 CKD (chronic kidney disease) stage 3, GFR 30-59 ml/min 03/12/2017 07/28/2017 Chronic midline low back pain without sciatica 0 11/09/2016 07/28/2017 Diverticulitis of large inte minerva without perforation or abscess without bleeding 06/03/2016 07/28/2017 Chronic right-sided low back pain without sciati ca 09/17/2015 07/28/2017 BPPV (benign paroxysmal positional vertigo) 04/201501/20/2016 Dizziness and giddiness 07/02/2011 06/19/19 15 COPD (chronic obstructive pulmonary disease) 06/18/2014 Abdominal pain, left lower quadrant 04/01/2009 06/18/2014 Internal hemorrhoids without mention of complica tion 04/01/2009 06/18/2014 HYPERGLYCEMIA 04/10/2008 01/20/2016 Palpitations 03/23/2008 06/18/2014 ADRENAL NODULE 11/17/2007 07/28/2017 Diverticulosis of large intestine 11/17/2007 07/28/2017 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 PERS HX TOBACCO USE 11/21/2006 06/18/2014 OVERWEIGHT 11/19/2006 06/18/2014 documented as of this encounter (statuses as of 06/24/2022) [facility] History of Past illness Narrative* Problem Noted Date Resolved Date Current use of proton pump inhibitor 11/23/2017 06/15/2022 Overview: Mg checked 04/2018 Osteoarthritis of right hip 06/23/201705/31 CKD (chronic kidney disease) stage 3, GFR 30-59 ml/min 03/12/2017 07/28/2017 Chronic midline low back pain without sciatica 0 11/09/2016 07/28/2017 Diverticulitis of large inte minerva without perforation or abscess without bleeding 06/03/2016 07/28/2017 Chronic right-sided low back pain without sciati ca 09/17/2015 07/28/2017 BPPV (benign paroxysmal positional vertigo) 04/201501/20/2016 Dizziness and giddiness 07/02/2011 06/19/19 15 COPD (chronic obstructive pulmonary disease) 06/18/2014 Abdominal pain, left lower quadrant 04/01/2009 06/18/2014 Internal hemorrhoids without mention of complica tion 04/01/2009 06/18/2014 HYPERGLYCEMIA 04/10/2008 01/20/2016 Palpitations 03/23/2008 06/18/2014 ADRENAL NODULE 11/17/2007 07/28/2017 Diverticulosis of large intestine 11/17/2007 07/28/2017 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 PERS HX TOBACCO USE 11/21/2006 06/18/2014 OVERWEIGHT 11/19/2006 06/18/2014 documented as of this encounter (statuses as of 06/26/2022) [facility] History of Past illness Narrative* Problem Noted Date Resolved Date Current use of proton pump inhibitor 11/23/2017 06/15/2022 Overview: Mg checked 04/2018 Osteoarthritis of right hip 06/23/201705/31 CKD (chronic kidney disease) stage 3, GFR 30-59 ml/min 03/12/2017 07/28/2017 Chronic midline low back pain without sciatica 0 11/09/2016 07/28/2017 Diverticulitis of large inte minerva without perforation or abscess without bleeding 06/03/2016 07/28/2017 Chronic right-sided low back pain without sciati ca 09/17/2015 07/28/2017 BPPV (benign paroxysmal positional vertigo) 04/201501/20/2016 Dizziness and giddiness 07/02/2011 06/19/19 15 COPD (chronic obstructive pulmonary disease) 06/18/2014 Abdominal pain, left lower quadrant 04/01/2009 06/18/2014 Internal hemorrhoids without mention of complica tion 04/01/2009 06/18/2014 HYPERGLYCEMIA 04/10/2008 01/20/2016 Palpitations 03/23/2008 06/18/2014 ADRENAL NODULE 11/17/2007 07/28/2017 Diverticulosis of large intestine 11/17/2007 07/28/2017 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 PERS HX TOBACCO USE 11/21/2006 06/18/2014 OVERWEIGHT 11/19/2006 06/18/2014 documented as of this encounter (statuses as of 06/30/2022) [facility] History of Past illness Narrative* Problem Noted Date Resolved Date Current use of proton pump inhibitor 11/23/2017 06/15/2022 Overview: Mg checked 04/2018 Osteoarthritis of right hip 06/23/201705/31 CKD (chronic kidney disease) stage 3, GFR 30-59 ml/min 03/12/2017 07/28/2017 Chronic midline low back pain without sciatica 0 11/09/2016 07/28/2017 Diverticulitis of large inte minerva without perforation or abscess without bleeding 06/03/2016 07/28/2017 Chronic right-sided low back pain without sciati ca 09/17/2015 07/28/2017 BPPV (benign paroxysmal positional vertigo) 02/0 04/201501/20/2016 Dizziness and giddiness 07/02/2011 06/19/19 15 COPD (chronic obstructive pulmonary disease) 06/18/2014 Abdominal pain, left lower quadrant 04/01/2009 06/18/2014 Internal hemorrhoids without mention of complica tion 04/01/2009 06/18/2014 HYPERGLYCEMIA 04/10/2008 01/20/2016 Palpitations 03/23/2008 06/18/2014 ADRENAL NODULE 11/17/2007 07/28/2017 Diverticulosis of large intestine 11/17/2007 07/28/2017 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 PERS HX TOBACCO USE 11/21/2006 06/18/2014 OVERWEIGHT 11/19/2006 06/18/2014 documented as of this encounter (statuses as of 07/04/2022) [facility] History of Past illness Narrative* Problem Noted Date Resolved Date Current use of proton pump inhibitor 11/23/2017 06/15/2022 Overview: Mg checked 04/2018 Osteoarthritis of right hip 06/23/201705/31 CKD (chronic kidney disease) stage 3, GFR 30-59 ml/min 03/12/2017 07/28/2017 Chronic midline low back pain without sciatica 0 11/09/2016 07/28/2017 Diverticulitis of large inte minerva without perforation or abscess without bleeding 06/03/2016 07/28/2017 Chronic right-sided low back pain without sciati ca 09/17/2015 07/28/2017 BPPV (benign paroxysmal positional vertigo) 02/0 04/201501/20/2016 Dizziness and giddiness 07/02/2011 06/19/19 15 COPD (chronic obstructive pulmonary disease) 06/18/2014 Abdominal pain, left lower quadrant 04/01/2009 06/18/2014 Internal hemorrhoids without mention of complica tion 04/01/2009 06/18/2014 HYPERGLYCEMIA 04/10/2008 01/20/2016 Palpitations 03/23/2008 06/18/2014 ADRENAL NODULE 11/17/2007 07/28/2017 Diverticulosis of large intestine 11/17/2007 07/28/2017 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 PERS HX TOBACCO USE 11/21/2006 06/18/2014 OVERWEIGHT 11/19/2006 06/18/2014 documented as of this encounter (statuses as of 07/07/2022) [facility] History of Past illness Narrative* Problem Noted Date Resolved Date Current use of proton pump inhibitor 11/23/2017 06/15/2022 Overview: Mg checked 04/2018 Osteoarthritis of right hip 06/23/201705/31 CKD (chronic kidney disease) stage 3, GFR 30-59 ml/min 03/12/2017 07/28/2017 Chronic midline low back pain without sciatica 0 11/09/2016 07/28/2017 Diverticulitis of large inte minerva without perforation or abscess without bleeding 06/03/2016 07/28/2017 Chronic right-sided low back pain without sciati ca 09/17/2015 07/28/2017 BPPV (benign paroxysmal positional vertigo) 0204/201501/20/2016 Dizziness and giddiness 07/02/2011 06/19/19 15 COPD (chronic obstructive pulmonary disease) 06/18/2014 Abdominal pain, left lower quadrant 04/01/2009 06/18/2014 Internal hemorrhoids without mention of complica tion 04/01/2009 06/18/2014 HYPERGLYCEMIA 04/10/2008 01/20/2016 Palpitations 03/23/2008 06/18/2014 ADRENAL NODULE 11/17/2007 07/28/2017 Diverticulosis of large intestine 11/17/2007 07/28/2017 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 PERS HX TOBACCO USE 11/21/2006 06/18/2014 OVERWEIGHT 11/19/2006 06/18/2014 documented as of this encounter (statuses as of 07/08/2022) [facility] History of Past illness Narrative* Problem Noted Date Resolved Date Current use of proton pump inhibitor 11/23/2017 06/15/2022 Overview: Mg checked 04/2018 Osteoarthritis of right hip 06/23/201705/31 CKD (chronic kidney disease) stage 3, GFR 30-59 ml/min 03/12/2017 07/28/2017 Chronic midline low back pain without sciatica 0 11/09/2016 07/28/2017 Diverticulitis of large inte minerva without perforation or abscess without bleeding 06/03/2016 07/28/2017 Chronic right-sided low back pain without sciati ca 09/17/2015 07/28/2017 BPPV (benign paroxysmal positional vertigo) 04/201501/20/2016 Dizziness and giddiness 07/02/2011 06/19/19 COPD (chronic obstructive pulmonary disease) 06/18/2014 Abdominal pain, left lower quadrant 04/01/2009 06/18/2014 Internal hemorrhoids without mention of complica tion 04/01/2009 06/18/2014 HYPERGLYCEMIA 04/10/2008 01/20/2016 Palpitations 03/23/2008 06/18/2014 ADRENAL NODULE 11/17/2007 07/28/2017 Diverticulosis of large intestine 11/17/2007 07/28/2017 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 PERS HX TOBACCO USE 11/21/2006 06/18/2014 OVERWEIGHT 11/19/2006 06/18/2014 documented as of this encounter (statuses as of 07/09/2022) [facility] History of Past illness Narrative* Problem Noted Date Resolved Date Current use of proton pump inhibitor 11/23/2017 06/15/2022 Overview: Mg checked 04/2018 Osteoarthritis of right hip 06/23/201705/31 CKD (chronic kidney disease) stage 3, GFR 30-59 ml/min 03/12/2017 07/28/2017 Chronic midline low back pain without sciatica 0 11/09/2016 07/28/2017 Diverticulitis of large inte minerva without perforation or abscess without bleeding 06/03/2016 07/28/2017 Chronic right-sided low back pain without sciati ca 09/17/2015 07/28/2017 BPPV (benign paroxysmal positional vertigo) 04/201501/20/2016 Dizziness and giddiness 07/02/2011 06/19/19 15 COPD (chronic obstructive pulmonary disease) 06/18/2014 Abdominal pain, left lower quadrant 04/01/2009 06/18/2014 Internal hemorrhoids without mention of complica tion 04/01/2009 06/18/2014 HYPERGLYCEMIA 04/10/2008 01/20/2016 Palpitations 03/23/2008 06/18/2014 ADRENAL NODULE 11/17/2007 07/28/2017 Diverticulosis of large intestine 11/17/2007 07/28/2017 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 PERS HX TOBACCO USE 11/21/2006 06/18/2014 OVERWEIGHT 11/19/2006 06/18/2014 documented as of this encounter (statuses as of 07/13/2022) [facility] History of Past illness Narrative* Problem Noted Date Resolved Date Current use of proton pump inhibitor 11/23/2017 06/15/2022 Overview: Mg checked 04/2018 Osteoarthritis of right hip 06/23/201705/31 CKD (chronic kidney disease) stage 3, GFR 30-59 ml/min 03/12/2017 07/28/2017 Chronic midline low back pain without sciatica 0 11/09/2016 07/28/2017 Diverticulitis of large inte minerva without perforation or abscess without bleeding 06/03/2016 07/28/2017 Chronic right-sided low back pain without sciati ca 09/17/2015 07/28/2017 BPPV (benign paroxysmal positional vertigo) 04/201501/20/2016 Dizziness and giddiness 07/02/2011 06/19/19 15 COPD (chronic obstructive pulmonary disease) 06/18/2014 Abdominal pain, left lower quadrant 04/01/2009 06/18/2014 Internal hemorrhoids without mention of complica tion 04/01/2009 06/18/2014 HYPERGLYCEMIA 04/10/2008 01/20/2016 Palpitations 03/23/2008 06/18/2014 ADRENAL NODULE 11/17/2007 07/28/2017 Diverticulosis of large intestine 11/17/2007 07/28/2017 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 PERS HX TOBACCO USE 11/21/2006 06/18/2014 OVERWEIGHT 11/19/2006 06/18/2014 documented as of this encounter (statuses as of 08/08/2022) [facility] History of Past illness Narrative* Problem Noted Date Resolved Date Current use of proton pump inhibitor 11/23/2017 06/15/2022 Overview: Mg checked 04/2018 Osteoarthritis of right hip 06/23/201705/31 CKD (chronic kidney disease) stage 3, GFR 30-59 ml/min 03/12/2017 07/28/2017 Chronic midline low back pain without sciatica 0 11/09/2016 07/28/2017 Diverticulitis of large inte minerva without perforation or abscess without bleeding 06/03/2016 07/28/2017 Chronic right-sided low back pain without sciati ca 09/17/2015 07/28/2017 BPPV (benign paroxysmal positional vertigo) 04/201501/20/2016 Dizziness and giddiness 07/02/2011 06/19/19 15 COPD (chronic obstructive pulmonary disease) 06/18/2014 Abdominal pain, left lower quadrant 04/01/2009 06/18/2014 Internal hemorrhoids without mention of complica tion 04/01/2009 06/18/2014 HYPERGLYCEMIA 04/10/2008 01/20/2016 Palpitations 03/23/2008 06/18/2014 ADRENAL NODULE 11/17/2007 07/28/2017 Diverticulosis of large intestine 11/17/2007 07/28/2017 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 PERS HX TOBACCO USE 11/21/2006 06/18/2014 OVERWEIGHT 11/19/2006 06/18/2014 documented as of this encounter (statuses as of 08/04/2022) [facility] History of Past illness Narrative* Problem Noted Date Resolved Date Current use of proton pump inhibitor 11/23/2017 06/15/2022 Overview: Mg checked 04/2018 Osteoarthritis of right hip 06/23/201705/31 CKD (chronic kidney disease) stage 3, GFR 30-59 ml/min 03/12/2017 07/28/2017 Chronic midline low back pain without sciatica 0 11/09/2016 07/28/2017 Diverticulitis of large inte minerva without perforation or abscess without bleeding 06/03/2016 07/28/2017 Chronic right-sided low back pain without sciati ca 09/17/2015 07/28/2017 BPPV (benign paroxysmal positional vertigo) 02/0 04/201501/20/2016 Dizziness and giddiness 07/02/2011 06/19/19 15 COPD (chronic obstructive pulmonary disease) 06/18/2014 Abdominal pain, left lower quadrant 04/01/2009 06/18/2014 Internal hemorrhoids without mention of complica tion 04/01/2009 06/18/2014 HYPERGLYCEMIA 04/10/2008 01/20/2016 Palpitations 03/23/2008 06/18/2014 ADRENAL NODULE 11/17/2007 07/28/2017 Diverticulosis of large intestine 11/17/2007 07/28/2017 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 PERS HX TOBACCO USE 11/21/2006 06/18/2014 OVERWEIGHT 11/19/2006 06/18/2014 documented as of this encounter (statuses as of 08/04/2022) [facility] History of Past illness Narrative* Problem Noted Date Resolved Date Current use of proton pump inhibitor 11/23/2017 06/15/2022 Overview: Mg checked 04/2018 Osteoarthritis of right hip 06/23/201705/31 CKD (chronic kidney disease) stage 3, GFR 30-59 ml/min 03/12/2017 07/28/2017 Chronic midline low back pain without sciatica 0 11/09/2016 07/28/2017 Diverticulitis of large inte minerva without perforation or abscess without bleeding 06/03/2016 07/28/2017 Chronic right-sided low back pain without sciati ca 09/17/2015 07/28/2017 BPPV (benign paroxysmal positional vertigo) 02/0 04/201501/20/2016 Dizziness and giddiness 07/02/2011 06/19/19 15 COPD (chronic obstructive pulmonary disease) 06/18/2014 Abdominal pain, left lower quadrant 04/01/2009 06/18/2014 Internal hemorrhoids without mention of complica tion 04/01/2009 06/18/2014 HYPERGLYCEMIA 04/10/2008 01/20/2016 Palpitations 03/23/2008 06/18/2014 ADRENAL NODULE 11/17/2007 07/28/2017 Diverticulosis of large intestine 11/17/2007 07/28/2017 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 PERS HX TOBACCO USE 11/21/2006 06/18/2014 OVERWEIGHT 11/19/2006 06/18/2014 documented as of this encounter (statuses as of 08/18/2022) [facility] History of Past illness Narrative* Problem Noted Date Resolved Date Current use of proton pump inhibitor 11/23/2017 06/15/2022 Overview: Mg checked 04/2018 Osteoarthritis of right hip 06/23/201705/31 CKD (chronic kidney disease) stage 3, GFR 30-59 ml/min 03/12/2017 07/28/2017 Chronic midline low back pain without sciatica 0 11/09/2016 07/28/2017 Diverticulitis of large inte minerva without perforation or abscess without bleeding 06/03/2016 07/28/2017 Chronic right-sided low back pain without sciati ca 09/17/2015 07/28/2017 BPPV (benign paroxysmal positional vertigo) 0204/201501/20/2016 Dizziness and giddiness 07/02/2011 06/19/19 15 COPD (chronic obstructive pulmonary disease) 06/18/2014 Abdominal pain, left lower quadrant 04/01/2009 06/18/2014 Internal hemorrhoids without mention of complica tion 04/01/2009 06/18/2014 HYPERGLYCEMIA 04/10/2008 01/20/2016 Palpitations 03/23/2008 06/18/2014 ADRENAL NODULE 11/17/2007 07/28/2017 Diverticulosis of large intestine 11/17/2007 07/28/2017 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 PERS HX TOBACCO USE 11/21/2006 06/18/2014 OVERWEIGHT 11/19/2006 06/18/2014 documented as of this encounter (statuses as of 08/26/2022) [facility] History of Past illness Narrative* Problem Noted Date Diagnosed Date Resolved Date Current use of proton pump inhibitor 11/23/2017 06/15/2022 Overview: Mg checked 04/2018 Osteoarthritis of right hip 06/23/2017 06/25/2017 CKD (chronic kidney disease) stage 3, GFR 30-59 ml/min 03/12/2017 07/28/2017 Chronic midline low back iesha n without sciatica 11/09/2016 07/28/2017 Diverticulitis of large inte minerva without perforation or abscess without bleeding 06/03/2016 07/28/2017 Chronic right-sided low back pain without sciatica 09/17/2015 07/28/2017 BPPV (benign paroxysmal positional vertigo) 04/03/2015 01/20/2016 Dizziness and giddiness 07/02/201105/31 COPD (chronic obstructive pulmonary disease) 1 06/18/2014 Abdominal pain, left lower quadrant 04/01/2009 06/18/2014 Internal hemorrhoids without mention of complication 04/01/2009 06/18/2014 HYPERGLYCEMIA 04/10/2008 01/20/2016 Palpitations 03/23/2008 06/18/2014 ADRENAL NODULE 11/17/2007 07/28/2017 Diverticulosis of large intestine 11/17/2007 07/28/2017 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 06/18/2014 PERS HX TOBACCO USE 11/21/2006 06/19/19 15 OVERWEIGHT 11/19/2006 06/18/2014 documented as of this encounter (statuses as of 09/08/2022) [facility] History of Past illness Narrative* Problem Noted Date Diagnosed Date Resolved Date Current use of proton pump inhibitor 11/23/2017 06/15/2022 Overview: Mg checked 04/2018 Osteoarthritis of right hip 06/23/2017 06/25/2017 CKD (chronic kidney disease) stage 3, GFR 30-59 ml/min 03/12/2017 07/28/2017 Chronic midline low back iesha n without sciatica 11/09/2016 07/28/2017 Diverticulitis of large inte minerva without perforation or abscess without bleeding 06/03/2016 07/28/2017 Chronic right-sided low back pain without sciatica 09/17/2015 07/28/2017 BPPV (benign paroxysmal positional vertigo) 04/03/2015 01/20/2016 Dizziness and giddiness 07/02/201105/31 COPD (chronic obstructive pulmonary disease) 1 06/18/2014 Abdominal pain, left lower quadrant 04/01/2009 06/18/2014 Internal hemorrhoids without mention of complication 04/01/2009 06/18/2014 HYPERGLYCEMIA 04/10/2008 01/20/2016 Palpitations 03/23/2008 06/18/2014 ADRENAL NODULE 11/17/2007 07/28/2017 Diverticulosis of large intestine 11/17/2007 07/28/2017 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 06/18/2014 PERS HX TOBACCO USE 11/21/2006 06/19/19 15 OVERWEIGHT 11/19/2006 06/18/2014 documented as of this encounter (statuses as of 10/22/2022) [facility] History of Past illness Narrative* Problem Noted Date Diagnosed Date Resolved Date Current use of proton pump inhibitor 11/23/2017 06/15/2022 Overview: Mg checked 04/2018 Osteoarthritis of right hip 06/23/2017 06/25/2017 CKD (chronic kidney disease) stage 3, GFR 30-59 ml/min 03/12/2017 07/28/2017 Chronic midline low back iesha n without sciatica 11/09/2016 07/28/2017 Diverticulitis of large inte minerva without perforation or abscess without bleeding 06/03/2016 07/28/2017 Chronic right-sided low back pain without sciatica 09/17/2015 07/28/2017 BPPV (benign paroxysmal positional vertigo) 04/03/2015 01/20/2016 Dizziness and giddiness 07/02/201105/31 COPD (chronic obstructive pulmonary disease) 1 06/18/2014 Abdominal pain, left lower quadrant 04/01/2009 06/18/2014 Internal hemorrhoids without mention of complication 04/01/2009 06/18/2014 HYPERGLYCEMIA 04/10/2008 01/20/2016 Palpitations 03/23/2008 06/18/2014 ADRENAL NODULE 11/17/2007 07/28/2017 Diverticulosis of large intestine 11/17/2007 07/28/2017 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 06/18/2014 PERS HX TOBACCO USE 11/21/2006 06/19/19 15 OVERWEIGHT 11/19/2006 06/18/2014 documented as of this encounter (statuses as of 10/28/2022) [facility] History of Past illness Narrative* Problem Noted Date Diagnosed Date Resolved Date Current use of proton pump inhibitor 11/23/2017 06/15/2022 Overview: Mg checked 04/2018 Osteoarthritis of right hip 06/23/2017 06/25/2017 CKD (chronic kidney disease) stage 3, GFR 30-59 ml/min 03/12/2017 07/28/2017 Chronic midline low back iesha n without sciatica 11/09/2016 07/28/2017 Diverticulitis of large inte minerva without perforation or abscess without bleeding 06/03/2016 07/28/2017 Chronic right-sided low back pain without sciatica 09/17/2015 07/28/2017 BPPV (benign paroxysmal positional vertigo) 04/03/2015 01/20/2016 Dizziness and giddiness 07/02/201105/31 COPD (chronic obstructive pulmonary disease) 1 06/18/2014 Abdominal pain, left lower quadrant 04/01/2009 06/18/2014 Internal hemorrhoids without mention of complication 04/01/2009 06/18/2014 HYPERGLYCEMIA 04/10/2008 01/20/2016 Palpitations 03/23/2008 06/18/2014 ADRENAL NODULE 11/17/2007 07/28/2017 Diverticulosis of large intestine 11/17/2007 07/28/2017 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 06/18/2014 PERS HX TOBACCO USE 11/21/2006 06/19/19 15 OVERWEIGHT 11/19/2006 06/18/2014 documented as of this encounter (statuses as of 10/29/2022) [facility] History of Past illness Narrative* Problem Noted Date Diagnosed Date Resolved Date Current use of proton pump inhibitor 11/23/2017 06/15/2022 Overview: Mg checked 04/2018 Osteoarthritis of right hip 06/23/2017 06/25/2017 CKD (chronic kidney disease) stage 3, GFR 30-59 ml/min 03/12/2017 07/28/2017 Chronic midline low back iesha n without sciatica 11/09/2016 07/28/2017 Diverticulitis of large inte minerva without perforation or abscess without bleeding 06/03/2016 07/28/2017 Chronic right-sided low back pain without sciatica 09/17/2015 07/28/2017 BPPV (benign paroxysmal positional vertigo) 04/03/2015 01/20/2016 Dizziness and giddiness 07/02/201105/31 COPD (chronic obstructive pulmonary disease) 06/18/2014 Abdominal pain, left lower quadrant 04/01/2009 06/18/2014 Internal hemorrhoids without mention of complication 04/01/2009 06/18/2014 HYPERGLYCEMIA 04/10/2008 01/20/2016 Palpitations 03/23/2008 06/18/2014 ADRENAL NODULE 11/17/2007 07/28/2017 Diverticulosis of large intestine 11/17/2007 07/28/2017 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 06/18/2014 PERS HX TOBACCO USE 11/21/2006 06/19/19 15 OVERWEIGHT 11/19/2006 06/18/2014 documented as of this encounter (statuses as of 11/17/2022) [facility] History of Past illness Narrative* Problem Noted Date Diagnosed Date Resolved Date Current use of proton pump inhibitor 11/23/2017 06/15/2022 Overview: Mg checked 04/2018 Osteoarthritis of right hip 06/23/2017 06/25/2017 CKD (chronic kidney disease) stage 3, GFR 30-59 ml/min 03/12/2017 07/28/2017 Chronic midline low back iesha n without sciatica 11/09/2016 07/28/2017 Diverticulitis of large inte minerva without perforation or abscess without bleeding 06/03/2016 07/28/2017 Chronic right-sided low back pain without sciatica 09/17/2015 07/28/2017 BPPV (benign paroxysmal positional vertigo) 04/03/2015 01/20/2016 Dizziness and giddiness 07/02/201105/31 COPD (chronic obstructive pulmonary disease) 06/18/2014 Abdominal pain, left lower quadrant 04/01/2009 06/18/2014 Internal hemorrhoids without mention of complication 04/01/2009 06/18/2014 HYPERGLYCEMIA 04/10/2008 01/20/2016 Palpitations 03/23/2008 06/18/2014 ADRENAL NODULE 11/17/2007 07/28/2017 Diverticulosis of large intestine 11/17/2007 07/28/2017 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 06/18/2014 PERS HX TOBACCO USE 11/21/2006 06/19/19 15 OVERWEIGHT 11/19/2006 06/18/2014 documented as of this encounter (statuses as of 11/23/2022) [facility] History of Past illness Narrative* Problem Noted Date Diagnosed Date Resolved Date Current use of proton pump inhibitor 11/23/2017 06/15/2022 Overview: Mg checked 04/2018 Osteoarthritis of right hip 06/23/2017 06/25/2017 CKD (chronic kidney disease) stage 3, GFR 30-59 ml/min 03/12/2017 07/28/2017 Chronic midline low back iesha n without sciatica 11/09/2016 07/28/2017 Diverticulitis of large inte minerva without perforation or abscess without bleeding 06/03/2016 07/28/2017 Chronic right-sided low back pain without sciatica 09/17/2015 07/28/2017 BPPV (benign paroxysmal positional vertigo) 04/03/2015 01/20/2016 Dizziness and giddiness 07/02/201105/31 COPD (chronic obstructive pulmonary disease) 1 06/18/2014 Abdominal pain, left lower quadrant 04/01/2009 06/18/2014 Internal hemorrhoids without mention of complication 04/01/2009 06/18/2014 HYPERGLYCEMIA 04/10/2008 01/20/2016 Palpitations 03/23/2008 06/18/2014 ADRENAL NODULE 11/17/2007 07/28/2017 Diverticulosis of large intestine 11/17/2007 07/28/2017 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 06/18/2014 PERS HX TOBACCO USE 11/21/2006 06/19/19 15 OVERWEIGHT 11/19/2006 06/18/2014 documented as of this encounter (statuses as of 11/27/2022) [facility] History of Past illness Narrative* Problem Noted Date Diagnosed Date Resolved Date Current use of proton pump inhibitor 11/23/2017 06/15/2022 Overview: Mg checked 04/2018 Osteoarthritis of right hip 06/23/2017 06/25/2017 CKD (chronic kidney disease) stage 3, GFR 30-59 ml/min 03/12/2017 07/28/2017 Chronic midline low back iesha n without sciatica 11/09/2016 07/28/2017 Diverticulitis of large inte minerva without perforation or abscess without bleeding 06/03/2016 07/28/2017 Chronic right-sided low back pain without sciatica 09/17/2015 07/28/2017 BPPV (benign paroxysmal positional vertigo) 04/03/2015 01/20/2016 Dizziness and giddiness 07/02/201105/31 COPD (chronic obstructive pulmonary disease) 1 06/18/2014 Abdominal pain, left lower quadrant 04/01/2009 06/18/2014 Internal hemorrhoids without mention of complication 04/01/2009 06/18/2014 HYPERGLYCEMIA 04/10/2008 01/20/2016 Palpitations 03/23/2008 06/18/2014 ADRENAL NODULE 11/17/2007 07/28/2017 Diverticulosis of large intestine 11/17/2007 07/28/2017 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 06/18/2014 PERS HX TOBACCO USE 11/21/2006 06/19/19 15 OVERWEIGHT 11/19/2006 06/18/2014 documented as of this encounter (statuses as of 12/03/2022) [facility] History of Past illness Narrative* Problem Noted Date Diagnosed Date Resolved Date Current use of proton pump inhibitor 11/23/2017 06/15/2022 Overview: Mg checked 04/2018 Osteoarthritis of right hip 06/23/2017 06/25/2017 CKD (chronic kidney disease) stage 3, GFR 30-59 ml/min 03/12/2017 07/28/2017 Chronic midline low back iesha n without sciatica 11/09/2016 07/28/2017 Diverticulitis of large inte minerva without perforation or abscess without bleeding 06/03/2016 07/28/2017 Chronic right-sided low back pain without sciatica 09/17/2015 07/28/2017 BPPV (benign paroxysmal positional vertigo) 04/03/2015 01/20/2016 Dizziness and giddiness 07/02/201105/31 COPD (chronic obstructive pulmonary disease) 1 06/18/2014 Abdominal pain, left lower quadrant 04/01/2009 06/18/2014 Internal hemorrhoids without mention of complication 04/01/2009 06/18/2014 HYPERGLYCEMIA 04/10/2008 01/20/2016 Palpitations 03/23/2008 06/18/2014 ADRENAL NODULE 11/17/2007 07/28/2017 Diverticulosis of large intestine 11/17/2007 07/28/2017 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 06/18/2014 PERS HX TOBACCO USE 11/21/2006 06/19/19 15 OVERWEIGHT 11/19/2006 06/18/2014 documented as of this encounter (statuses as of 12/10/2022) [facility] History of Past illness Narrative* Problem Noted Date Diagnosed Date Resolved Date Current use of proton pump inhibitor 11/23/2017 06/15/2022 Overview: Mg checked 04/2018 Osteoarthritis of right hip 06/23/2017 06/25/2017 CKD (chronic kidney disease) stage 3, GFR 30-59 ml/min 03/12/2017 07/28/2017 Chronic midline low back iesha n without sciatica 11/09/2016 07/28/2017 Diverticulitis of large inte minerva without perforation or abscess without bleeding 06/03/2016 07/28/2017 Chronic right-sided low back pain without sciatica 09/17/2015 07/28/2017 BPPV (benign paroxysmal positional vertigo) 04/03/2015 01/20/2016 Dizziness and giddiness 07/02/201105/31 COPD (chronic obstructive pulmonary disease) 1 06/18/2014 Abdominal pain, left lower quadrant 04/01/2009 06/18/2014 Internal hemorrhoids without mention of complication 04/01/2009 06/18/2014 HYPERGLYCEMIA 04/10/2008 01/20/2016 Palpitations 03/23/2008 06/18/2014 ADRENAL NODULE 11/17/2007 07/28/2017 Diverticulosis of large intestine 11/17/2007 07/28/2017 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 06/18/2014 PERS HX TOBACCO USE 11/21/2006 06/19/19 15 OVERWEIGHT 11/19/2006 06/18/2014 documented as of this encounter (statuses as of 12/31/2022) [facility] History of Past illness Narrative* Problem Noted Date Diagnosed Date Resolved Date Current use of proton pump inhibitor 11/23/2017 06/15/2022 Overview: Mg checked 04/2018 Osteoarthritis of right hip 06/23/2017 06/25/2017 CKD (chronic kidney disease) stage 3, GFR 30-59 ml/min 03/12/2017 07/28/2017 Chronic midline low back iesha n without sciatica 11/09/2016 07/28/2017 Diverticulitis of large inte minerva without perforation or abscess without bleeding 06/03/2016 07/28/2017 Chronic right-sided low back pain without sciatica 09/17/2015 07/28/2017 BPPV (benign paroxysmal positional vertigo) 04/03/2015 01/20/2016 Dizziness and giddiness 07/02/201105/31 COPD (chronic obstructive pulmonary disease) 1 06/18/2014 Abdominal pain, left lower quadrant 04/01/2009 06/18/2014 Internal hemorrhoids without mention of complication 04/01/2009 06/18/2014 HYPERGLYCEMIA 04/10/2008 01/20/2016 Palpitations 03/23/2008 06/18/2014 ADRENAL NODULE 11/17/2007 07/28/2017 Diverticulosis of large intestine 11/17/2007 07/28/2017 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 06/18/2014 PERS HX TOBACCO USE 11/21/2006 06/19/19 15 OVERWEIGHT 11/19/2006 06/18/2014 documented as of this encounter (statuses as of 01/03/2023) [facility] History of Past illness Narrative* Problem Noted Date Diagnosed Date Resolved Date Current use of proton pump inhibitor 11/23/2017 06/15/2022 Overview: Mg checked 04/2018 Osteoarthritis of right hip 06/23/2017 06/25/2017 CKD (chronic kidney disease) stage 3, GFR 30-59 ml/min 03/12/2017 07/28/2017 Chronic midline low back iesha n without sciatica 11/09/2016 07/28/2017 Diverticulitis of large inte minerva without perforation or abscess without bleeding 06/03/2016 07/28/2017 Chronic right-sided low back pain without sciatica 09/17/2015 07/28/2017 BPPV (benign paroxysmal positional vertigo) 04/03/2015 01/20/2016 Dizziness and giddiness 07/02/201105/31 COPD (chronic obstructive pulmonary disease) 06/18/2014 Abdominal pain, left lower quadrant 04/01/2009 06/18/2014 Internal hemorrhoids without mention of complication 04/01/2009 06/18/2014 HYPERGLYCEMIA 04/10/2008 01/20/2016 Palpitations 03/23/2008 06/18/2014 ADRENAL NODULE 11/17/2007 07/28/2017 Diverticulosis of large intestine 11/17/2007 07/28/2017 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 06/18/2014 PERS HX TOBACCO USE 11/21/2006 06/19/19 15 OVERWEIGHT 11/19/2006 06/18/2014 documented as of this encounter (statuses as of 01/27/2023) [facility] History of Past illness Narrative* Problem Noted Date Diagnosed Date Resolved Date Current use of proton pump inhibitor 11/23/2017 06/15/2022 Overview: Mg checked 04/2018 Osteoarthritis of right hip 06/23/2017 06/25/2017 CKD (chronic kidney disease) stage 3, GFR 30-59 ml/min 03/12/2017 07/28/2017 Chronic midline low back iesha n without sciatica 11/09/2016 07/28/2017 Diverticulitis of large inte minerva without perforation or abscess without bleeding 06/03/2016 07/28/2017 Chronic right-sided low back pain without sciatica 09/17/2015 07/28/2017 BPPV (benign paroxysmal positional vertigo) 04/03/2015 01/20/2016 Dizziness and giddiness 07/02/201105/31 COPD (chronic obstructive pulmonary disease) 06/18/2014 Abdominal pain, left lower quadrant 04/01/2009 06/18/2014 Internal hemorrhoids without mention of complication 04/01/2009 06/18/2014 HYPERGLYCEMIA 04/10/2008 01/20/2016 Palpitations 03/23/2008 06/18/2014 ADRENAL NODULE 11/17/2007 07/28/2017 Diverticulosis of large intestine 11/17/2007 07/28/2017 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 06/18/2014 PERS HX TOBACCO USE 11/21/2006 06/19/19 15 OVERWEIGHT 11/19/2006 06/18/2014 documented as of this encounter (statuses as of 02/05/2023) [facility] History of Past illness Narrative* Problem Noted Date Diagnosed Date Resolved Date Current use of proton pump inhibitor 11/23/2017 06/15/2022 Overview: Mg checked 04/2018 Osteoarthritis of right hip 06/23/2017 06/25/2017 CKD (chronic kidney disease) stage 3, GFR 30-59 ml/min 03/12/2017 07/28/2017 Chronic midline low back iesha n without sciatica 11/09/2016 07/28/2017 Diverticulitis of large inte minerva without perforation or abscess without bleeding 06/03/2016 07/28/2017 Chronic right-sided low back pain without sciatica 09/17/2015 07/28/2017 BPPV (benign paroxysmal positional vertigo) 04/03/2015 01/20/2016 Dizziness and giddiness 07/02/201105/31 COPD (chronic obstructive pulmonary disease) 1 06/18/2014 Abdominal pain, left lower quadrant 04/01/2009 06/18/2014 Internal hemorrhoids without mention of complication 04/01/2009 06/18/2014 HYPERGLYCEMIA 04/10/2008 01/20/2016 Palpitations 03/23/2008 06/18/2014 ADRENAL NODULE 11/17/2007 07/28/2017 Diverticulosis of large intestine 11/17/2007 07/28/2017 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 06/18/2014 PERS HX TOBACCO USE 11/21/2006 06/19/19 15 OVERWEIGHT 11/19/2006 06/18/2014 documented as of this encounter (statuses as of 02/08/2023) [facility] History of Past illness Narrative* Problem Noted Date Diagnosed Date Resolved Date Current use of proton pump inhibitor 11/23/2017 06/15/2022 Overview: Mg checked 04/2018 Osteoarthritis of right hip 06/23/2017 06/25/2017 CKD (chronic kidney disease) stage 3, GFR 30-59 ml/min 03/12/2017 07/28/2017 Chronic midline low back iesha n without sciatica 11/09/2016 07/28/2017 Diverticulitis of large inte minerva without perforation or abscess without bleeding 06/03/2016 07/28/2017 Chronic right-sided low back pain without sciatica 09/17/2015 07/28/2017 BPPV (benign paroxysmal positional vertigo) 04/03/2015 01/20/2016 Dizziness and giddiness 07/02/201105/31 COPD (chronic obstructive pulmonary disease) 1 06/18/2014 Abdominal pain, left lower quadrant 04/01/2009 06/18/2014 Internal hemorrhoids without mention of complication 04/01/2009 06/18/2014 HYPERGLYCEMIA 04/10/2008 01/20/2016 Palpitations 03/23/2008 06/18/2014 ADRENAL NODULE 11/17/2007 07/28/2017 Diverticulosis of large intestine 11/17/2007 07/28/2017 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 06/18/2014 PERS HX TOBACCO USE 11/21/2006 06/19/19 15 OVERWEIGHT 11/19/2006 06/18/2014 documented as of this encounter (statuses as of 02/12/2023) [facility] History of Past illness Narrative* Problem Noted Date Resolved Date Osteoarthritis of right hip 06/23/201705/31 CKD (chronic kidney disease) stage 3, GFR 30-59 ml/min 03/12/2017 07/28/2017 Chronic midline low back pain without sciatica 0 11/09/2016 07/28/2017 Diverticulitis of large inte minerva without perforation or abscess without bleeding 06/03/2016 07/28/2017 Chronic right-sided low back pain without sciati ca 09/17/2015 07/28/2017 BPPV (benign paroxysmal positional vertigo) 04/201501/20/2016 Dizziness and giddiness 07/02/2011 06/19/19 15 COPD (chronic obstructive pulmonary disease) 06/18/2014 Abdominal pain, left lower quadrant 04/01/2009 06/18/2014 Internal hemorrhoids without mention of complica tion 04/01/2009 06/18/2014 HYPERGLYCEMIA 04/10/2008 01/20/2016 Palpitations 03/23/2008 06/18/2014 ADRENAL NODULE 11/17/2007 07/28/2017 Diverticulosis of large intestine 11/17/2007 07/28/2017 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 PERS HX TOBACCO USE 11/21/2006 06/18/2014 OVERWEIGHT 11/19/2006 06/18/2014 documented as of this encounter (statuses as of 05/26/2021) [facility] History of Past illness Narrative* Problem Noted Date Resolved Date Osteoarthritis of right hip 06/23/201705/31 CKD (chronic kidney disease) stage 3, GFR 30-59 ml/min 03/12/2017 07/28/2017 Chronic midline low back pain without sciatica 0 11/09/2016 07/28/2017 Diverticulitis of large inte minerva without perforation or abscess without bleeding 06/03/2016 07/28/2017 Chronic right-sided low back pain without sciati ca 09/17/2015 07/28/2017 BPPV (benign paroxysmal positional vertigo) 04/201501/20/2016 Dizziness and giddiness 07/02/2011 06/19/19 15 COPD (chronic obstructive pulmonary disease) 06/18/2014 Abdominal pain, left lower quadrant 04/01/2009 06/18/2014 Internal hemorrhoids without mention of complica tion 04/01/2009 06/18/2014 HYPERGLYCEMIA 04/10/2008 01/20/2016 Palpitations 03/23/2008 06/18/2014 ADRENAL NODULE 11/17/2007 07/28/2017 Diverticulosis of large intestine 11/17/2007 07/28/2017 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 PERS HX TOBACCO USE 11/21/2006 06/18/2014 OVERWEIGHT 11/19/2006 06/18/2014 documented as of this encounter (statuses as of 05/29/2021) [facility] History of Past illness Narrative* Problem Noted Date Resolved Date Osteoarthritis of right hip 06/23/201705/31 CKD (chronic kidney disease) stage 3, GFR 30-59 ml/min 03/12/2017 07/28/2017 Chronic midline low back pain without sciatica 0 11/09/2016 07/28/2017 Diverticulitis of large inte minerva without perforation or abscess without bleeding 06/03/2016 07/28/2017 Chronic right-sided low back pain without sciati ca 09/17/2015 07/28/2017 BPPV (benign paroxysmal positional vertigo) 02/0 04/201501/20/2016 Dizziness and giddiness 07/02/2011 06/19/19 15 COPD (chronic obstructive pulmonary disease) 06/18/2014 Abdominal pain, left lower quadrant 04/01/2009 06/18/2014 Internal hemorrhoids without mention of complica tion 04/01/2009 06/18/2014 HYPERGLYCEMIA 04/10/2008 01/20/2016 Palpitations 03/23/2008 06/18/2014 ADRENAL NODULE 11/17/2007 07/28/2017 Diverticulosis of large intestine 11/17/2007 07/28/2017 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 PERS HX TOBACCO USE 11/21/2006 06/18/2014 OVERWEIGHT 11/19/2006 06/18/2014 documented as of this encounter (statuses as of 06/23/2021) [facility] History of Past illness Narrative* Problem Noted Date Resolved Date Osteoarthritis of right hip 06/23/201705/31 CKD (chronic kidney disease) stage 3, GFR 30-59 ml/min 03/12/2017 07/28/2017 Chronic midline low back pain without sciatica 0 11/09/2016 07/28/2017 Diverticulitis of large inte minerva without perforation or abscess without bleeding 06/03/2016 07/28/2017 Chronic right-sided low back pain without sciati ca 09/17/2015 07/28/2017 BPPV (benign paroxysmal positional vertigo) 02/0 04/201501/20/2016 Dizziness and giddiness 07/02/2011 06/19/19 15 COPD (chronic obstructive pulmonary disease) 06/18/2014 Abdominal pain, left lower quadrant 04/01/2009 06/18/2014 Internal hemorrhoids without mention of complica tion 04/01/2009 06/18/2014 HYPERGLYCEMIA 04/10/2008 01/20/2016 Palpitations 03/23/2008 06/18/2014 ADRENAL NODULE 11/17/2007 07/28/2017 Diverticulosis of large intestine 11/17/2007 07/28/2017 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 PERS HX TOBACCO USE 11/21/2006 06/18/2014 OVERWEIGHT 11/19/2006 06/18/2014 documented as of this encounter (statuses as of 06/24/2021) [facility] History of Past illness Narrative* Problem Noted Date Resolved Date Osteoarthritis of right hip 06/23/201705/31 CKD (chronic kidney disease) stage 3, GFR 30-59 ml/min 03/12/2017 07/28/2017 Chronic midline low back pain without sciatica 0 11/09/2016 07/28/2017 Diverticulitis of large inte minerva without perforation or abscess without bleeding 06/03/2016 07/28/2017 Chronic right-sided low back pain without sciati ca 09/17/2015 07/28/2017 BPPV (benign paroxysmal positional vertigo) 04/201501/20/2016 Dizziness and giddiness 07/02/2011 06/19/19 15 COPD (chronic obstructive pulmonary disease) 06/18/2014 Abdominal pain, left lower quadrant 04/01/2009 06/18/2014 Internal hemorrhoids without mention of complica tion 04/01/2009 06/18/2014 HYPERGLYCEMIA 04/10/2008 01/20/2016 Palpitations 03/23/2008 06/18/2014 ADRENAL NODULE 11/17/2007 07/28/2017 Diverticulosis of large intestine 11/17/2007 07/28/2017 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 PERS HX TOBACCO USE 11/21/2006 06/18/2014 OVERWEIGHT 11/19/2006 06/18/2014 documented as of this encounter (statuses as of 07/10/2021) [facility] History of Past illness Narrative* Problem Noted Date Resolved Date Osteoarthritis of right hip 06/23/201705/31 CKD (chronic kidney disease) stage 3, GFR 30-59 ml/min 03/12/2017 07/28/2017 Chronic midline low back pain without sciatica 0 11/09/2016 07/28/2017 Diverticulitis of large inte minerva without perforation or abscess without bleeding 06/03/2016 07/28/2017 Chronic right-sided low back pain without sciati ca 09/17/2015 07/28/2017 BPPV (benign paroxysmal positional vertigo) 02/0 04/201501/20/2016 Dizziness and giddiness 07/02/2011 06/19/19 15 COPD (chronic obstructive pulmonary disease) 06/18/2014 Abdominal pain, left lower quadrant 04/01/2009 06/18/2014 Internal hemorrhoids without mention of complica tion 04/01/2009 06/18/2014 HYPERGLYCEMIA 04/10/2008 01/20/2016 Palpitations 03/23/2008 06/18/2014 ADRENAL NODULE 11/17/2007 07/28/2017 Diverticulosis of large intestine 11/17/2007 07/28/2017 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 PERS HX TOBACCO USE 11/21/2006 06/18/2014 OVERWEIGHT 11/19/2006 06/18/2014 documented as of this encounter (statuses as of 07/25/2021) [facility] History of Past illness Narrative* Problem Noted Date Resolved Date Osteoarthritis of right hip 06/23/201705/31 CKD (chronic kidney disease) stage 3, GFR 30-59 ml/min 03/12/2017 07/28/2017 Chronic midline low back pain without sciatica 0 11/09/2016 07/28/2017 Diverticulitis of large inte minerva without perforation or abscess without bleeding 06/03/2016 07/28/2017 Chronic right-sided low back pain without sciati ca 09/17/2015 07/28/2017 BPPV (benign paroxysmal positional vertigo) 02/0 04/201501/20/2016 Dizziness and giddiness 07/02/2011 06/19/19 15 COPD (chronic obstructive pulmonary disease) 06/18/2014 Abdominal pain, left lower quadrant 04/01/2009 06/18/2014 Internal hemorrhoids without mention of complica tion 04/01/2009 06/18/2014 HYPERGLYCEMIA 04/10/2008 01/20/2016 Palpitations 03/23/2008 06/18/2014 ADRENAL NODULE 11/17/2007 07/28/2017 Diverticulosis of large intestine 11/17/2007 07/28/2017 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 PERS HX TOBACCO USE 11/21/2006 06/18/2014 OVERWEIGHT 11/19/2006 06/18/2014 documented as of this encounter (statuses as of 07/30/2021) [facility] History of Past illness Narrative* Problem Noted Date Resolved Date Osteoarthritis of right hip 06/23/201705/31 CKD (chronic kidney disease) stage 3, GFR 30-59 ml/min 03/12/2017 07/28/2017 Chronic midline low back pain without sciatica 0 11/09/2016 07/28/2017 Diverticulitis of large inte minerva without perforation or abscess without bleeding 06/03/2016 07/28/2017 Chronic right-sided low back pain without sciati ca 09/17/2015 07/28/2017 BPPV (benign paroxysmal positional vertigo) 04/201501/20/2016 Dizziness and giddiness 07/02/2011 06/19/19 15 COPD (chronic obstructive pulmonary disease) 06/18/2014 Abdominal pain, left lower quadrant 04/01/2009 06/18/2014 Internal hemorrhoids without mention of complica tion 04/01/2009 06/18/2014 HYPERGLYCEMIA 04/10/2008 01/20/2016 Palpitations 03/23/2008 06/18/2014 ADRENAL NODULE 11/17/2007 07/28/2017 Diverticulosis of large intestine 11/17/2007 07/28/2017 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 PERS HX TOBACCO USE 11/21/2006 06/18/2014 OVERWEIGHT 11/19/2006 06/18/2014 documented as of this encounter (statuses as of 09/23/2021) [facility] History of Past illness Narrative* Problem Noted Date Resolved Date Osteoarthritis of right hip 06/23/201705/31 CKD (chronic kidney disease) stage 3, GFR 30-59 ml/min 03/12/2017 07/28/2017 Chronic midline low back pain without sciatica 0 11/09/2016 07/28/2017 Diverticulitis of large inte minerva without perforation or abscess without bleeding 06/03/2016 07/28/2017 Chronic right-sided low back pain without sciati ca 09/17/2015 07/28/2017 BPPV (benign paroxysmal positional vertigo) 02/0 04/201501/20/2016 Dizziness and giddiness 07/02/2011 06/19/19 15 COPD (chronic obstructive pulmonary disease) 06/18/2014 Abdominal pain, left lower quadrant 04/01/2009 06/18/2014 Internal hemorrhoids without mention of complica tion 04/01/2009 06/18/2014 HYPERGLYCEMIA 04/10/2008 01/20/2016 Palpitations 03/23/2008 06/18/2014 ADRENAL NODULE 11/17/2007 07/28/2017 Diverticulosis of large intestine 11/17/2007 07/28/2017 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 PERS HX TOBACCO USE 11/21/2006 06/18/2014 OVERWEIGHT 11/19/2006 06/18/2014 documented as of this encounter (statuses as of 12/08/2021) [facility] History of Past illness Narrative* Problem Noted Date Resolved Date Osteoarthritis of right hip 06/23/201705/31 CKD (chronic kidney disease) stage 3, GFR 30-59 ml/min 03/12/2017 07/28/2017 Chronic midline low back pain without sciatica 0 11/09/2016 07/28/2017 Diverticulitis of large inte minerva without perforation or abscess without bleeding 06/03/2016 07/28/2017 Chronic right-sided low back pain without sciati ca 09/17/2015 07/28/2017 BPPV (benign paroxysmal positional vertigo) 0204/201501/20/2016 Dizziness and giddiness 07/02/2011 06/19/19 15 COPD (chronic obstructive pulmonary disease) 06/18/2014 Abdominal pain, left lower quadrant 04/01/2009 06/18/2014 Internal hemorrhoids without mention of complica tion 04/01/2009 06/18/2014 HYPERGLYCEMIA 04/10/2008 01/20/2016 Palpitations 03/23/2008 06/18/2014 ADRENAL NODULE 11/17/2007 07/28/2017 Diverticulosis of large intestine 11/17/2007 07/28/2017 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 PERS HX TOBACCO USE 11/21/2006 06/18/2014 OVERWEIGHT 11/19/2006 06/18/2014 documented as of this encounter (statuses as of 12/09/2021) [facility] History of Past illness Narrative* Problem Noted Date Resolved Date Osteoarthritis of right hip 06/23/201705/31 CKD (chronic kidney disease) stage 3, GFR 30-59 ml/min 03/12/2017 07/28/2017 Chronic midline low back pain without sciatica 0 11/09/2016 07/28/2017 Diverticulitis of large inte minerva without perforation or abscess without bleeding 06/03/2016 07/28/2017 Chronic right-sided low back pain without sciati ca 09/17/2015 07/28/2017 BPPV (benign paroxysmal positional vertigo) 04/201501/20/2016 Dizziness and giddiness 07/02/2011 06/19/19 15 COPD (chronic obstructive pulmonary disease) 06/18/2014 Abdominal pain, left lower quadrant 04/01/2009 06/18/2014 Internal hemorrhoids without mention of complica tion 04/01/2009 06/18/2014 HYPERGLYCEMIA 04/10/2008 01/20/2016 Palpitations 03/23/2008 06/18/2014 ADRENAL NODULE 11/17/2007 07/28/2017 Diverticulosis of large intestine 11/17/2007 07/28/2017 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 PERS HX TOBACCO USE 11/21/2006 06/18/2014 OVERWEIGHT 11/19/2006 06/18/2014 documented as of this encounter (statuses as of 12/09/2021) [facility] History of Past illness Narrative* Problem Noted Date Resolved Date Osteoarthritis of right hip 06/23/201705/31 CKD (chronic kidney disease) stage 3, GFR 30-59 ml/min 03/12/2017 07/28/2017 Chronic midline low back pain without sciatica 0 11/09/2016 07/28/2017 Diverticulitis of large inte minerva without perforation or abscess without bleeding 06/03/2016 07/28/2017 Chronic right-sided low back pain without sciati ca 09/17/2015 07/28/2017 BPPV (benign paroxysmal positional vertigo) 02/0 04/201501/20/2016 Dizziness and giddiness 07/02/2011 06/19/19 15 COPD (chronic obstructive pulmonary disease) 06/18/2014 Abdominal pain, left lower quadrant 04/01/2009 06/18/2014 Internal hemorrhoids without mention of complica tion 04/01/2009 06/18/2014 HYPERGLYCEMIA 04/10/2008 01/20/2016 Palpitations 03/23/2008 06/18/2014 ADRENAL NODULE 11/17/2007 07/28/2017 Diverticulosis of large intestine 11/17/2007 07/28/2017 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 PERS HX TOBACCO USE 11/21/2006 06/18/2014 OVERWEIGHT 11/19/2006 06/18/2014 documented as of this encounter (statuses as of 2021) [facility] History of Past illness Narrative* Problem Noted Date Resolved Date Osteoarthritis of right hip 06/23/201705/31 CKD (chronic kidney disease) stage 3, GFR 30-59 ml/min 03/12/2017 07/28/2017 Chronic midline low back pain without sciatica 0 11/09/2016 07/28/2017 Diverticulitis of large inte minerva without perforation or abscess without bleeding 06/03/2016 07/28/2017 Chronic right-sided low back pain without sciati ca 09/17/2015 07/28/2017 BPPV (benign paroxysmal positional vertigo) 02/0 04/201501/20/2016 Dizziness and giddiness 07/02/2011 06/19/19 15 COPD (chronic obstructive pulmonary disease) 06/18/2014 Abdominal pain, left lower quadrant 04/01/2009 06/18/2014 Internal hemorrhoids without mention of complica tion 04/01/2009 06/18/2014 HYPERGLYCEMIA 04/10/2008 01/20/2016 Palpitations 03/23/2008 06/18/2014 ADRENAL NODULE 11/17/2007 07/28/2017 Diverticulosis of large intestine 11/17/2007 07/28/2017 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 PERS HX TOBACCO USE 11/21/2006 06/18/2014 OVERWEIGHT 11/19/2006 06/18/2014 documented as of this encounter (statuses as of 12/17/2021) [facility] of Past illness Narrative* Problem Noted Date Resolved Date Osteoarthritis of right hip 06/23/201705/31 CKD (chronic kidney disease) stage 3, GFR 30-59 ml/min 03/12/2017 07/28/2017 Chronic midline low back pain without sciatica 0 11/09/2016 07/28/2017 Diverticulitis of large inte minerva without perforation or abscess without bleeding 06/03/2016 07/28/2017 Chronic right-sided low back pain without sciati ca 09/17/2015 07/28/2017 BPPV (benign paroxysmal positional vertigo) 020 04/201501/20/2016 Dizziness and giddiness 07/02/2011 06/19/19 15 COPD (chronic obstructive pulmonary disease) 06/18/2014 Abdominal pain, left lower quadrant 04/01/2009 06/18/2014 Internal hemorrhoids without mention of complica tion 04/01/2009 06/18/2014 HYPERGLYCEMIA 04/10/2008 01/20/2016 Palpitations 03/23/2008 06/18/2014 ADRENAL NODULE 11/17/2007 07/28/2017 Diverticulosis of large intestine 11/17/2007 07/28/2017 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 PERS HX TOBACCO USE 11/21/2006 06/18/2014 OVERWEIGHT 11/19/2006 06/18/2014 documented as of this encounter (statuses as of 01/07/2022) [facility] History of Past illness Narrative* Problem Noted Date Resolved Date Osteoarthritis of right hip 06/23/201705/31 CKD (chronic kidney disease) stage 3, GFR 30-59 ml/min 03/12/2017 07/28/2017 Chronic midline low back pain without sciatica 0 11/09/2016 07/28/2017 Diverticulitis of large inte minerva without perforation or abscess without bleeding 06/03/2016 07/28/2017 Chronic right-sided low back pain without sciati ca 09/17/2015 07/28/2017 BPPV (benign paroxysmal positional vertigo) 02/0 04/201501/20/2016 Dizziness and giddiness 07/02/2011 06/19/19 15 COPD (chronic obstructive pulmonary disease) 06/18/2014 Abdominal pain, left lower quadrant 04/01/2009 06/18/2014 Internal hemorrhoids without mention of complica tion 04/01/2009 06/18/2014 HYPERGLYCEMIA 04/10/2008 01/20/2016 Palpitations 03/23/2008 06/18/2014 ADRENAL NODULE 11/17/2007 07/28/2017 Diverticulosis of large intestine 11/17/2007 07/28/2017 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 PERS HX TOBACCO USE 11/21/2006 06/18/2014 OVERWEIGHT 11/19/2006 06/18/2014 documented as of this encounter (statuses as of 06/12/2022) [facility] Diagnosis Medicare annual wellness visit, initial- Primary Routine general medical examination at a [facility] care facility Advance directive discussed with patient Other specified counseling Essential hypertension Unspecified essential hypertension Mixed hyperlipidemia Vitamin B12 deficiency Other B-complex deficiencies Recurrent major depressive disorder, in remission (HCC) Pulmonary emphysema, unspecified emphysema type (HCC) Gastroesophageal reflux disease without esophagitis Esophageal reflux Overactive bladder Hypertonicity of bladder Class 3 severe obesity due to excess calories without serious comorbidity with body mass index (BMI) of 45.0 to 49.9 in adult (HCC) Smoker Tobacco use disorder Asymptomatic postmenopausal status History of colonic polyps Personal history of colonic polyps Benign paroxysmal positional vertigo, unspecified laterality Microscopic hematuria [facility] encounter [facility] Diagnosis Recurrent UTI (urinary tract infection)- Primary Urinary tract infection, site not specified [facility] this [facility] Diagnosis Asymptomatic postmenopausal status [facility] Diagnosis History of colonic polyps Personal history of colonic polyps [facility] Diagnosis Tubular adenoma- Primary Benign neoplasm of unspecified site Diverticulosis Diverticulosis of colon (without mention of hemorrhage) Internal hemorrhoids Internal hemorrhoids without mention of complication History of colonic diverticulitis Personal history of other diseases of digestive system [facility] Diagnosis Essential hypertension- Primary Unspecified essential hypertension Mixed hyperlipidemia Benign paroxysmal positional vertigo, unspecified laterality Smoker Tobacco use disorder Depression, unspecified depression type Class 3 severe obesity due to excess calories without serious comorbidity with body mass index (BMI) of 45.0 to 49.9 in adult (HCC) Pulmonary emphysema, unspecified emphysema type (HCC) Vitamin B12 deficiency Other B-complex deficiencies Recurrent major depressive disorder, in remission (HCC) Anxiety state Anxiety state, unspecified Urinary frequency Screening mammogram for breast cancer [facility] Diagnosis Urinary frequency- Primary [facility] Diagnosis Anxiety state- Primary Anxiety state, unspecified Recurrent major depressive disorder, in remission (HCC) [facility] Diagnosis Acute cough- Primary Suspected COVID-19 virus infection COPD with exacerbation (HCC) Obstructive chronic bronchitis with exacerbation [facility] Diagnosis Anxiety state Anxiety state, unspecified Depression, unspecified depression type [facility] Diagnosis Recurrent major depressive disorder, in remission (HCC)- Primary Anxiety state Anxiety state, unspecified Class 3 severe obesity due to excess calories without serious comorbidity with body mass index (BMI) of 45.0 to 49.9 in adult (HCC) Snores Other dyspnea and respiratory abnormality Hypersomnolence Hypersomnia, unspecified Pulmonary emphysema, unspecified emphysema type ([facility]) Cough, persistent Cough Smoker Tobacco use disorder Encounter for screening for lung cancer Mixed hyperlipidemia Essential hypertension Unspecified essential hypertension Gastroesophageal reflux disease without esophagitis Esophageal reflux Vitamin B12 deficiency Other B-complex deficiencies Medication management Encounter for long-term (current) use of other medications Advance directive discussed with patient Other specified counseling Lip lesion Diseases of lips [facility] Diagnosis Renal insufficiency- Primary Unspecified disorder of kidney and ureter [facility] Diagnosis Encounter for screening for lung cancer- Primary Tobacco use current [facility] Diagnosis Smoker Tobacco use disorder Pulmonary emphysema, unspecified emphysema type (HCC) Cough, persistent Cough [facility] this [facility]* Diagnosis Cellulitis of skin- Primary Cellulitis and abscess of unspecified site Dog bite, subsequent encounter documented in this encounter [facility] note* Diagnosis Dog bite of left wrist with infection, subsequent encounter- Primary Abscess Cellulitis and abscess of unspecified site [facility] Diagnosis Dog bite of left wrist with infection, subsequent encounter- Primary documented in this encounter [facility] note* Diagnosis Dog bite of left wrist with infection, subsequent encounter- Primary [facility] Diagnosis MÓNICA (obstructive sleep apnea)- Primary Obstructive sleep apnea (adult) (pediatric) Sleep related hypoxia Idiopathic sleep related nonobstructive alveolar hypoventilation Class 3 severe obesity with body mass index (BMI) of 45.0 to 49.9 in adult, unspecified obesity type, unspecified whether serious comorbidity present (HCC) 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, delayed sleep phase type documented [facility] Diagnosis Moderate obstructive sleep apnea Obstructive sleep apnea (adult) (pediatric) documented [facility] Diagnosis Encounter for screening for lung cancer- Primary Tobacco use current [facility] Diagnosis Coronary artery calcification- Primary Coronary atherosclerosis of unspecified type of vessel, [place] or graft SOB (shortness of breath) Shortness of breath Decreased stamina Other malaise and fatigue Family history of early CAD Family history of ischemic heart disease MÓNICA (obstructive sleep apnea) Obstructive sleep apnea (adult) (pediatric) documented [facility] Diagnosis Dog bite, initial encounter- Primary Visit for suture removal Encounter for removal of sutures Obesity, Class III, BMI 40-49.9 (morbid obesity) (HCC) Morbid obesity documented [facility] Diagnosis COPD (chronic obstructive pulmonary disease) with acute bronchitis (HCC)- Primary Obstructive chronic bronchitis with acute bronchitis Rhonchi Abnormal chest sounds URI, acute Acute upper respiratory infections of unspecified site documented [facility]* Diagnosis Encounter for screening mammogram for breast cancer documented [facility] Diagnosis MÓNICA (obstructive sleep apnea)- Primary Obstructive sleep apnea (adult) (pediatric) Sleep related hypoxia Idiopathic sleep related nonobstructive alveolar hypoventilation Class 3 severe obesity with body mass index (BMI) of 45.0 to 49.9 in adult, unspecified obesity type, unspecified whether serious comorbidity present (HCC) Chronic obstructive pulmonary disease, unspecified COPD type (HCC) documented [facility]* Diagnosis Essential hypertension- Primary Unspecified essential hypertension Gastroesophageal reflux disease without esophagitis Esophageal reflux Mixed hyperlipidemia Moderate obstructive sleep apnea Obstructive sleep apnea (adult) (pediatric) Osteoarthritis of multiple joints, unspecified osteoarthritis type [facility] Diagnosis Essential hypertension Unspecified essential hypertension Anxiety state Anxiety state, unspecified documented [facility]* Diagnosis Encounter for screening for lung cancer Tobacco use current [facility] Diagnosis Cystitis with hematuria- Primary Cystitis, unspecified documented in this encounter [facility] for referral (narrative)* Outpatient Procedure (Routine) - Closed Specialty Diagnoses / Procedures [facility] Diagnoses History of colonic polyps Procedures COLONOSCOPY DIAGNOSTIC COLONOSCOPY FLX DX W/COLLJ SPEC WHEN PFRMD Douglas Corral MD [address] [place] [address] [facility] [place] [address] [place] [address] Referral ID Status Reason Start Date Expiration Date V isits Requested Visits Authorized [id number] Closed Auto-Generate d Referral 07/24/2021 10/22/2021 1 1 [facility] for referral (narrative)* Diagnostic Procedure Only (Routine) - Authorized Specialty Diagnoses / Procedures [facility] To Contact [facility] Diagnoses Screening mammogram for breast cancer Procedures YULIA SCREENING SCREENING MAMMOGRAPHY BI 2-VIEW BREAST INC CAD Padmini Solorzano PA-C [address] [place] [address] [facility] [address] [place] [address] Referral ID Status Reason Start Date Expiration Date Visits Requested Visits Authorized [id number] Authorized Auto-Generat ed Referral 2 01/07/2023 1 1 [facility] for referral (narrative)* Diagnostic Procedure Only (Urgent) - Closed Specialty Diagnoses / Procedures Referred By [facility] Referred To Contact XR IMAGING Diagnoses Rhonchi Procedures XR RIBS 2V AP/OBL RIGHT RADEX RIBS UNILATERAL 2 VIEWS Keke Bae APRN.SHEET HEATER [address] [place] [address] [place] [id number] Referral ID Status Reason Start Date Expiration Date V isits Requested Visits Authorized [id number] Closed Auto-Generate d Referral 11/16/2022 12/16/2023 1 1 [facility] for referral (narrative)* Diagnostic Procedure Only (Routine) - Pending Review Specialty Diagnoses / Procedures Referred By Alta t Referred To Contact [facility] Diagnoses Encounter for screening mammogram for breast cancer Procedures YULIA SCREENING SCREENING MAMMOGRAPHY BI 2-VIEW BREAST INC CAD Dewayne Chung MD [address] [place] [address] [facility] [address] [place] [address] Referral ID Status Reason Start Date Expiration Date Visits Requested Visits Authorized [id number] Pending Review Auto-Generat ed Referral 11/18/2022 12/18/2023 1 1 [facility] for visit Narrative* Diagnostic Procedure Only (Routine) - Closed Specialty Diagnoses / Procedures Referred By Alta t Referred To Contact Radiology / RADIO BONE DENSITY [facility] Diagnoses Asymptomatic postmenopausal status [Z78.0] Procedures BONE DENSITY ADULT 225 Padmini Solorzano PA-C [address] [place] [address] Radio Bone Density [facility] [address] [place] [address] Referral ID Status Reason Start Date Expiration Date Visits Re quested Visits Authorized [id number] Closed 06/23/2021 02/28/2022 1 1 [facility] for visit Narrative* Outpatient Procedure (Routine) - Closed Specialty Diagnoses / Procedures Referred By Alta t Referred To Contact [facility] Diagnoses History of colonic polyps Procedures COLONOSCOPY DIAGNOSTIC COLONOSCOPY FLX DX W/COLLJ SPEC WHEN PFDouglas Vicente MD [address] [place] [address] [facility] [place] [address] [place] [address] Referral ID Status Reason Start Date Expiration Date V isits Requested Visits Authorized [id number] Closed Auto-Generate d Referral 07/24/2021 10/22/2021 1 1 [facility] Summary Purpose Family History No Family History Records FoundNo Family History Records FoundNo Family History Records FoundNo Family History Records Found Advance Directives Documents on File Type Date Recorded Patient Account Development Specialist Expl anation Advance Directive(s) 09/07/2017 2:23 PM Advance Directive(s) 06/23/2017 8:12 AM Advance Directive(s) 06/01/2017 9:10 AM Advance Directive(s) 06/16/2016 7:01 AM Documents on File Type Date Recorded Patient Account Development Specialist Expl anation Advance Directive(s) 09/07/2017 2:23 PM Advance Directive(s) 06/23/2017 8:12 AM Advance Directive(s) 06/01/2017 9:10 AM Advance Directive(s) 06/16/2016 7:01 AM Documents on File Type Date Recorded Patient Account Development Specialist Expl anation Advance Directive(s) 07/24/2021 8:24 AM Advance Directive(s) 09/07/2017 2:23 PM Advance Directive(s) 06/23/2017 8:12 AM Advance Directive(s) 06/01/2017 9:10 AM Advance Directive(s) 06/16/2016 7:01 AM Documents on File Type Date Recorded Patient Account Development Specialist Expl anation Advance Directive(s) 07/24/2021 8:24 AM Advance Directive(s) 09/07/2017 2:23 PM Advance Directive(s) 06/23/2017 8:12 AM Advance Directive(s) 06/01/2017 9:10 AM Advance Directive(s) 06/16/2016 7:01 AM Reason for Referral Specialty Diagnoses / Procedures Referred By Alta t Referred To Contact General Surgery Diagnoses History of colonic polyps Procedures CONSULT TO GENERAL SURGERY OFFICE/OUTPATIENT [facility] 60-74 MINUTES Padmini Solorzano PA-C [address] [place] [address] Referral ID Status Reason Start Date Expiration Date Visits Requested Visits Authorized [id number] Authorized PCP Requested Referral 05/26/2021 05/26/2022 1 1 Specialty Diagnoses / Procedures Referred By Alta gupta Referred To Contact Ent - Otolaryngology Diagnoses Lip lesion Procedures CONSULT TO ENT OFFICE/OUTPATIENT [facility] 60-74 MINUTES Dewayne Chung MD [address] [place] [address] Referral ID Status Reason Start Date Expiration Date Visits Requested Visits Authorized [id number] Pending Review PCP Requested Referral 06/15/2022 06/15/2023 1 1 Specialty Diagnoses / Procedures Referred By Contac t Referred To Contact [facility] Diagnoses Essential hypertension Class 3 severe obesity due to excess calories without serious comorbidity with body mass index (BMI) of 45.0 to 49.9 in adult (HCC) Hypersomnolence Snores Procedures HOME SLEEP APNEA TEST (HSAT) SLEEP STD AIRFLOW HRT RATE&O2 SAT EFFORT UNATT Dewayne Chung MD [address] [place] [address] [address] Referral ID Status Reason Start Date Expiration Date Visits Requested Visits Authorized [id number] Authorized Auto-Generat ed Referral 06/15/2022 06/15/2023 1 1 Specialty Diagnoses / Procedures Referred By Contac t Referred To Contact [facility] Diagnoses Smoker Pulmonary emphysema, unspecified emphysema type ([facility]) Cough, persistent Procedures SPIROMETRY - BASELINE AND POST DILATOR BRNCDILAT RSPSE SPMTRY PRE&POST-BRNCDILAT ADMN Dewayne Chung MD [address] [place] [address] [address] Referral ID Status Reason Start Date Expiration Date Visits Requested Visits Authorized [id number] Authorized Auto-Generat ed Referral 06/15/2022 07/15/2023 1 1 Specialty Diagnoses / Procedures Referred By Contac t Referred To Contact CT IMAGING Diagnoses Encounter for screening for lung cancer Tobacco use current Procedures CT LUNG SCREEN WO IVCON COMPUTED TOMOGRAPHY THORAX LW DOSE LNG CA SCR [place]- Dorian Kern APRN.SHEET HEATER [address] [place] [address] Ct Imaging Referral ID Status Reason Start Date Expiration Date Visits Requested Visits Authorized [id number] Authorized Auto-Generat ed Referral 06/24/2022 07/24/2023 1 1 Specialty Diagnoses / Procedures Referred By Contac t Referred To Contact Diagnoses Moderate obstructive sleep apnea Procedures CONSULT TO SLEEP MEDICINE - ADULT OFFICE/OUTPATIENT [facility] 60-74 MINUTES Dewayne Chung MD [address] [place] [address] Referral ID Status Reason Start Date Expiration Date Visits Requested Visits Authorized [id number] Pending Review PCP Requested Referral 08/03/2022 08/03/2023 1 1 Referral ID Status Reason Start Date Expiration Date Visits Requested Visits Authorized [id number] Pending Review Auto-Generat ed Referral 08/26/2023 09/24/2023 1 1 Specialty Diagnoses / Procedures Referred By Contac t Referred To Contact Gynecology Diagnoses Obesity, Class III, BMI 40-49.9 (morbid obesity) (HCC) Procedures CONSULT TO GYNECOLOGY OFFICE/OUTPATIENT [facility] 60-74 MINUTES Padmini Solorzano PA-C [address] [place] [address] Referral ID Status Reason Start Date Expiration Date Visits Requested Visits Authorized [id number] Authorized PCP Requested Referral Auto-Generate d Referral 10/28/2022 10/28/2023 1 1 Specialty Diagnoses / Procedures Referred By Contac t Referred To Contact CT IMAGING Diagnoses Encounter for screening for lung cancer Tobacco use current Procedures CT LUNG SCREEN WO IVCON COMPUTED TOMOGRAPHY THORAX LW DOSE LNG CA SCR [place]- Dorian Kern, TRANSIT MANAGER.SHEET HEATER [address] [place] [address] Ct [facility] [place] [address] Referral ID Status Reason Start Date Expiration Date V isits Requested Visits Authorized [id number] Closed Auto-Generate d Referral 06/24/2022 07/24/2023 1 1 Medications Administered Section Inactive Administered Medications - up to 3 most recent administrations Medication Order MAR Action Action Date Dose Rate Site diphenhydrAMINE 12.5-50 mg injection (BENADRYL) 12.5-50 mg, INTRAVENOUS, DIRECTED, Starting on Aixa 07/24/21 at 0930, Until Aixa 07/24/21 at 1329, DOSING DIRECTED BY PHYSICIAN FOR PROCEDURAL SEDATION ONLY, Intraprocedure Given 07/24/2021 9:18 AM EDT 50 mg fentaNYL 50 mcg/mL 25-100 mcg injection (SUBLIMAZE) 25-100 mcg, INTRAVENOUS, DIRECTED, Starting on Aixa 07/24/21 at 0930, Until Aixa 07/24/21 at 1329, DOSING DIRECTED BY PHYSICIAN FOR PROCEDURAL SEDATION ONLY, Intraprocedure Given 07/24/2021 9:22 AM EDT 50 mcg Additional Source Comments INFORMATION SOURCE (unrecogn ized section and content) DATE CREATED AUTHOR AUTHOR'S ORGANIZ ATION 06/19/2022 [facility] DATE CREATED AUTHOR AUTHOR'S ORGANIZ ATION 08/26/2022 [facility] DATE CREATED AUTHOR AUTHOR'S ORGANIZ ATION 02/10/2023 [facility] Source Comments (unrecognize d section and content) In the event this informatio n is protected by the Federal Confidentiality of Alcohol and Drug Abuse Patient Records regulations: The Federal rules restrict any use of the information to criminally investigate or prosecute any alcohol or drug abuse patient.[facility] the event this information is protected by the Federal Confidentiality of Alcohol and Drug Abuse Patient Records regulations: The Federal rules restrict any use of the information to criminally investigate or prosecute any alcohol or drug abuse patient.[facility] the event this information is protected by the Federal Confidentiality of Alcohol and Drug Abuse Patient Records regulations: The Federal rules restrict any use of the information to criminally investigate or prosecute any alcohol or drug abuse patient.[facility] the event this information is protected by the Federal Confidentiality of Alcohol and Drug Abuse Patient Records regulations: The Federal rules restrict any use of the information to criminally investigate or prosecute any alcohol or drug abuse patient.[facility] the event this information is protected by the Federal Confidentiality of Alcohol and Drug Abuse Patient Records regulations: The Federal rules restrict any use of the information to criminally investigate or prosecute any alcohol or drug abuse patient.[facility] the event this information is protected by the Federal Confidentiality of Alcohol and Drug Abuse Patient Records regulations: The Federal rules restrict any use of the information to criminally investigate or prosecute any alcohol or drug abuse patient.[facility] Hospital[facility] the event this information is protected by the Federal Confidentiality of Alcohol and Drug Abuse Patient Records regulations: The Federal rules restrict any use of the information to criminally investigate or prosecute any alcohol or drug abuse patient.[facility] the event this information is protected by the Federal Confidentiality of Alcohol and Drug Abuse Patient Records regulations: The Federal rules restrict any use of the information to criminally investigate or prosecute any alcohol or drug abuse patient.[facility] the event this information is protected by the Federal Confidentiality of Alcohol and Drug Abuse Patient Records regulations: The Federal rules restrict any use of the information to criminally investigate or prosecute any alcohol or drug abuse patient.[facility] the event this information is protected by the Federal Confidentiality of Alcohol and Drug Abuse Patient Records regulations: The Federal rules restrict any use of the information to criminally investigate or prosecute any alcohol or drug abuse patient.[facility] Hospital[facility] the event this information is protected by the Federal Confidentiality of Alcohol and Drug Abuse Patient Records regulations: The Federal rules restrict any use of the information to criminally investigate or prosecute any alcohol or drug abuse patient.[facility] Hospital[facility] the event this information is protected by the Federal Confidentiality of Alcohol and Drug Abuse Patient Records regulations: The Federal rules restrict any use of the information to criminally investigate or prosecute any alcohol or drug abuse patient.[facility] Hospital[facility] the event this information is protected by the Federal Confidentiality of Alcohol and Drug Abuse Patient Records regulations: The Federal rules restrict any use of the information to criminally investigate or prosecute any alcohol or drug abuse patient.[facility] Hospital[facility] the event this information is protected by the Federal Confidentiality of Alcohol and Drug Abuse Patient Records regulations: The Federal rules restrict any use of the information to criminally investigate or prosecute any alcohol or drug abuse patient.[facility] Hospital[facility] the event this information is protected by the Federal Confidentiality of Alcohol and Drug Abuse Patient Records regulations: The Federal rules restrict any use of the information to criminally investigate or prosecute any alcohol or drug abuse patient.[facility] Hospital[facility] the event this information is protected by the Federal Confidentiality of Alcohol and Drug Abuse Patient Records regulations: The Federal rules restrict any use of the information to criminally investigate or prosecute any alcohol or drug abuse patient.[facility] HospitalIn the event this information is protected by the Federal Confidentiality of Alcohol and Drug Abuse Patient Records regulations: The Federal rules restrict any use of the information to criminally investigate or prosecute any alcohol or drug abuse patient.[facility] Hospital[facility] the event this information is protected by the Federal Confidentiality of Alcohol and Drug Abuse Patient Records regulations: The Federal rules restrict any use of the information to criminally investigate or prosecute any alcohol or drug abuse patient.[facility] HospitalIn the event this information is protected by the Federal Confidentiality of Alcohol and Drug Abuse Patient Records regulations: The Federal rules restrict any use of the information to criminally investigate or prosecute any alcohol or drug abuse patient.[facility] HospitalIn the event this information is protected by the Federal Confidentiality of Alcohol and Drug Abuse Patient Records regulations: The Federal rules restrict any use of the information to criminally investigate or prosecute any alcohol or drug abuse patient.[facility] HospitalIn the event this information is protected by the Federal Confidentiality of Alcohol and Drug Abuse Patient Records regulations: The Federal rules restrict any use of the information to criminally investigate or prosecute any alcohol or drug abuse patient.[facility] HospitalIn the event this information is protected by the Federal Confidentiality of Alcohol and Drug Abuse Patient Records regulations: The Federal rules restrict any use of the information to criminally investigate or prosecute any alcohol or drug abuse patient.[facility] Hospital[facility] the event this information is protected by the Federal Confidentiality of Alcohol and Drug Abuse Patient Records regulations: The Federal rules restrict any use of the information to criminally investigate or prosecute any alcohol or drug abuse patient.[facility] HospitalIn the event this information is protected by the Federal Confidentiality of Alcohol and Drug Abuse Patient Records regulations: The Federal rules restrict any use of the information to criminally investigate or prosecute any alcohol or drug abuse patient.[facility] HospitalIn the event this information is protected by the Federal Confidentiality of Alcohol and Drug Abuse Patient Records regulations: The Federal rules restrict any use of the information to criminally investigate or prosecute any alcohol or drug abuse patient.[facility] HospitalIn the event this information is protected by the Federal Confidentiality of Alcohol and Drug Abuse Patient Records regulations: The Federal rules restrict any use of the information to criminally investigate or prosecute any alcohol or drug abuse patient.[facility] Hospital[facility] the event this information is protected by the Federal Confidentiality of Alcohol and Drug Abuse Patient Records regulations: The Federal rules restrict any use of the information to criminally investigate or prosecute any alcohol or drug abuse patient.[facility] HospitalIn the event this information is protected by the Federal Confidentiality of Alcohol and Drug Abuse Patient Records regulations: The Federal rules restrict any use of the information to criminally investigate or prosecute any alcohol or drug abuse patient.[facility] HospitalIn the event this information is protected by the Federal Confidentiality of Alcohol and Drug Abuse Patient Records regulations: The Federal rules restrict any use of the information to criminally investigate or prosecute any alcohol or drug abuse patient.[facility] HospitalIn the event this information is protected by the Federal Confidentiality of Alcohol and Drug Abuse Patient Records regulations: The Federal rules restrict any use of the information to criminally investigate or prosecute any alcohol or drug abuse patient.[facility] HospitalIn the event this information is protected by the Federal Confidentiality of Alcohol and Drug Abuse Patient Records regulations: The Federal rules restrict any use of the information to criminally investigate or prosecute any alcohol or drug abuse patient.[facility] Hospital[facility] the event this information is protected by the Federal Confidentiality of Alcohol and Drug Abuse Patient Records regulations: The Federal rules restrict any use of the information to criminally investigate or prosecute any alcohol or drug abuse patient.[facility] Hospital[facility] the event this information is protected by the Federal Confidentiality of Alcohol and Drug Abuse Patient Records regulations: The Federal rules restrict any use of the information to criminally investigate or prosecute any alcohol or drug abuse patient.[facility] HospitalIn the event this information is protected by the Federal Confidentiality of Alcohol and Drug Abuse Patient Records regulations: The Federal rules restrict any use of the information to criminally investigate or prosecute any alcohol or drug abuse patient.[facility] HospitalIn the event this information is protected by the Federal Confidentiality of Alcohol and Drug Abuse Patient Records regulations: The Federal rules restrict any use of the information to criminally investigate or prosecute any alcohol or drug abuse patient.[facility] HospitalIn the event this information is protected by the Federal Confidentiality of Alcohol and Drug Abuse Patient Records regulations: The Federal rules restrict any use of the information to criminally investigate or prosecute any alcohol or drug abuse patient.[facility] HospitalIn the event this information is protected by the Federal Confidentiality of Alcohol and Drug Abuse Patient Records regulations: The Federal rules restrict any use of the information to criminally investigate or prosecute any alcohol or drug abuse patient.[facility] HospitalIn the event this information is protected by the Federal Confidentiality of Alcohol and Drug Abuse Patient Records regulations: The Federal rules restrict any use of the information to criminally investigate or prosecute any alcohol or drug abuse patient.[facility] HospitalIn the event this information is protected by the Federal Confidentiality of Alcohol and Drug Abuse Patient Records regulations: The Federal rules restrict any use of the information to criminally investigate or prosecute any alcohol or drug abuse patient.[facility] HospitalIn the event this information is protected by the Federal Confidentiality of Alcohol and Drug Abuse Patient Records regulations: The Federal rules restrict any use of the information to criminally investigate or prosecute any alcohol or drug abuse patient.[facility] HospitalIn the event this information is protected by the Federal Confidentiality of Alcohol and Drug Abuse Patient Records regulations: The Federal rules restrict any use of the information to criminally investigate or prosecute any alcohol or drug abuse patient.[facility] HospitalIn the event this information is protected by the Federal Confidentiality of Alcohol and Drug Abuse Patient Records regulations: The Federal rules restrict any use of the information to criminally investigate or prosecute any alcohol or drug abuse patient.[facility] HospitalIn the event this information is protected by the Federal Confidentiality of Alcohol and Drug Abuse Patient Records regulations: The Federal rules restrict any use of the information to criminally investigate or prosecute any alcohol or drug abuse patient.[facility] HospitalIn the event this information is protected by the Federal Confidentiality of Alcohol and Drug Abuse Patient Records regulations: The Federal rules restrict any use of the information to criminally investigate or prosecute any alcohol or drug abuse patient.[facility] HospitalIn the event this information is protected by the Federal Confidentiality of Alcohol and Drug Abuse Patient Records regulations: The Federal rules restrict any use of the information to criminally investigate or prosecute any alcohol or drug abuse patient.[facility] HospitalIn the event this information is protected by the Federal Confidentiality of Alcohol and Drug Abuse Patient Records regulations: The Federal rules restrict any use of the information to criminally investigate or prosecute any alcohol or drug abuse patient.[facility] Reason for Visit (unrecogniz ed section and content) Specialty Diagnoses / Procedures Referred By Alta t Referred To Contact Family Practice / FAMILY MEDICINE Diagnoses Medicare Wellness Procedures 4C EST WELL Padmini Solorzano PA-C [address] [place] [address] Padmini Solorzano PA-C [address] [place] [address] Referral ID Status Reason Start Date Expiration Date V isits Requested Visits Authorized [id number] Closed Patient Cleared INN/SMCP Payor Auth Obtained 05/26/2021 02/28/2022 1 1 Reason Comments Results Reason Comments 07-24-2021 COLON ASC Reason Comments Follow Up colonoscopy follow u p Specialty Diagnoses / Procedures Referred By Contletty t Referred To Contact General Surgery / GENERAL SURGERY Diagnoses colonoscopy follow up Procedures EST DDI PATIENT Douglas Corral MD [address] [place] [address] Nettie Sanchez PA-C [address] [place] [address] Referral ID Status Reason Start Date Expiration Date Visits Re quested Visits Authorized [id number] Closed 08/11/2021 02/28/2022 1 1 Reason Comments 6 Month Exam Specialty Diagnoses / Procedures Referred By Contac t Referred To Contact Family Medicine / FAMILY MEDICINE Diagnoses 6 month f/u Procedures 4C EST Padmini Solorzano PA-C [address] [place] [address] Padmini Solorzano PA-C [address] [place] [address] Referral ID Status Reason Start Date Expiration Date Visits Re quested Visits Authorized [id number] Closed 11/26/2021 02/28/2022 1 1 Reason Comments Orders Reason Comments requesting medication today Reason Comments Chest Congestion cough, sob x 1 week Reason Onset Date Comments Refill Request 06/11/2022 Reason Comments Medicare Wellness Exam Reason Comments New Patient LCS Reason Comments Spirometry Specialty Diagnoses / Procedures [facility] Diagnoses Smoker Pulmonary emphysema, unspecified emphysema type (HCC) Cough, persistent Procedures SPIROMETRY - BASELINE AND POST DILATOR BRNCDILAT RSPSE SPMTRY PRE&POST-BRNCDILAT Dewayne Palacios MD [address] [place] [address] [facility] [place] [address] [place] [address] Referral ID Status Reason Start Date Expiration Date V isits Requested Visits Authorized [id number] Closed Auto-Generate d Referral 06/15/2022 07/15/2023 1 1 Reason Comments Follow Up ER follow up for dog bite Reason Comments ED Follow-up Reason Comments Recheck Dog bite Reason Comments Recheck Reason Comments Follow Up Dog bite Reason Comments New Patient Evaluation New Patient Reason Comments Results Reason Comments Patient Update Reason Comments Appointment Rescheduled Reason Comments Follow Up Reason Comments ER F/U Reason Comments Suture Removal Left lower arm Reason Comments Appointment Reason Comments Cough congestion and rib p ain x over 1 week Reason Onset Date Comments Weight Management 12/01/2022 Specialty Diagnoses / Procedures Referred By Contac t Referred To Contact Gynecology Diagnoses Obesity, Class III, BMI 40-49.9 (morbid obesity) (HCC) Procedures CONSULT TO GYNECOLOGY OFFICE/OUTPATIENT NEW HIGH MDM 60-74 MINUTES Padmini Solorzano PA-C [address] [place] [address] Referral ID Status Reason Start Date Expiration Date Visits Requested Visits Authorized [id number] Authorized PCP Requested Referral Auto-Generate d Referral 10/28/2022 10/28/2023 1 1 Reason Onset Date Comments Refill Request 12/09/2022 Reason Comments Refill Request Reason Comments Radiology CT Specialty Diagnoses / Procedures Referred By Contac t Referred To Contact CT IMAGING Diagnoses Encounter for screening for lung cancer Tobacco use current Procedures CT LUNG SCREEN WO IVCON COMPUTED TOMOGRAPHY THORAX LW DOSE LNG CA SCR [place]- Dorian Kern, TRANSIT MANAGER.SHEET HEATER [address] [place] [address] Ct Imaging [facility] Referral ID Status Reason Start Date Expiration Date V isits Requested Visits Authorized [id number] Closed Auto-Generate d Referral 06/24/2022 07/24/2023 1 1 Reason Comments Urinary Frequency Frequency and pressu re x 1 week Care Teams (unrecognized sec tion and content) Credit Or Loans Officer Relationship Specialty Start Date End Date Dewayne Chung MD [address] [place] [id number] PCP - General Family Practice 11/23/17 Credit Or Loans Officer Relationship Specialty Start Date End Date Dewayne Chung MD [address] [place] [id number] PCP - General Family Practice 11/23/17 Credit Or Loans Officer Relationship Specialty Start Date End Date Dewayne Chung MD [address] [place] [address] PCP - General Family Practice 11/23/17 Credit Or Loans Officer Relationship Specialty Start Date End Date Dewayne Chung MD [address] [place] [address] PCP - General Family Practice 11/23/17 Credit Or Loans Officer Relationship Specialty Start Date End Date Dewayne Chung MD [address] [place] [address] PCP - General Family Practice 11/23/17 Credit Or Loans Officer Relationship Specialty Start Date End Date Dewayne Chung MD [facility] [place] [address] PCP - General Family Practice 11/23/17 Credit Or Loans Officer Relationship Specialty Start Date End Date Dewayne Chung MD [address] [place] [address], [place] [address] PCP - General Family Medicine 11/23/17 Credit Or Loans Officer Relationship Specialty Start Date End Date Dewayne Chung MD [address] [place] [address], [place] [address] PCP - General Family Medicine 11/23/17 Credit Or Loans Officer Relationship Specialty Start Date End Date Dewayne Chung MD [address] [place] [address], [place] [address] PCP - General Family Medicine 11/23/17 Credit Or Loans Officer Relationship Specialty Start Date End Date Dewayne Chung MD [address] [place] [address], [place] [address] PCP - General Family Medicine 11/23/17 Credit Or Loans Officer Relationship Specialty Start Date End Date Dewayne Chung MD [address] [place] [address], [place] [address] PCP - General Family Medicine 11/23/17 Credit Or Loans Officer Relationship Specialty Start Date End Date Dewayne Chung MD [address] [place] [address], [place] [address] PCP - General Family Medicine 11/23/17 Credit Or Loans Officer Relationship Specialty Start Date End Date Dewayne Chung MD [address] [place] [address], [place] [address] PCP - General Family Medicine 11/23/17 Credit Or Loans Officer Relationship Specialty Start Date End Date Dewayne Chung MD [address] [place] [address], [place] [address] PCP - General Family Medicine 11/23/17 Credit Or Loans Officer Relationship Specialty Start Date End Date Dewayne Chung MD [address] [place] [address] PCP - General Family Medicine 11/23/17 Credit Or Loans Officer Relationship Specialty Start Date End Date Dewayne Chung MD [address] [place] [address] PCP - General Family Medicine 11/23/17 Credit Or Loans Officer Relationship Specialty Start Date End Date Dewayne Chung MD [address] [place] [address] PCP - General Family Medicine 11/23/17 Credit Or Loans Officer Relationship Specialty Start Date End Date Dewayne Chung MD [address] [place] [address] PCP - General Family Medicine 11/23/17 Credit Or Loans Officer Relationship Specialty Start Date End Date Dewayne Chung MD [address] [place] [address] PCP - General Family Medicine 11/23/17 Credit Or Loans Officer Relationship Specialty Start Date End Date Dewayne Chung MD [address] [place] [address] PCP - General Family Medicine 11/23/17 Credit Or Loans Officer Relationship Specialty Start Date End Date Dewayne Chung MD [address] [place] [address] PCP - General Family Medicine 11/23/17 Credit Or Loans Officer Relationship Specialty Start Date End Date Dewayne Chung MD [address] [place] [address] PCP - General Family Medicine 11/23/17 Credit Or Loans Officer Relationship Specialty Start Date End Date Dewayne Chung MD [address] [place] [address] PCP - General Family Medicine 11/23/17 Credit Or Loans Officer Relationship Specialty Start Date End Date Dewayne Chung MD [address] [place] [address] PCP - General Family Medicine 11/23/17 Credit Or Loans Officer Relationship Specialty Start Date End Date Dewayne Chung MD [address] [place] [address] PCP - General Family Medicine 11/23/17 Credit Or Loans Officer Relationship Specialty Start Date End Date Dewayne Chung MD [address] [place] [address] PCP - General Family Medicine 11/23/17 Credit Or Loans Officer Relationship Specialty Start Date End Date Dewayne Chung MD [address] [place] [address] PCP - General Family Medicine 11/23/17 Credit Or Loans Officer Relationship Specialty Start Date End Date Dewayne Chung MD [address] [place] [address] PCP - General Family Medicine 11/23/17 Credit Or Loans Officer Relationship Specialty Start Date End Date Dewayne Chung MD [address] [place] [address] PCP - General Family Medicine 11/23/17 Credit Or Loans Officer Relationship Specialty Start Date End Date Dewayne Chung MD [address] [place] [address] PCP - General Family Medicine 11/23/17 FOR RECORDS PERTAINING TO PATIENTS WHO ARE OR HAVE BEEN ENROLLED IN A CHEMICAL DEPENDENCY/SUBSTANCEABUSE PROGRAM, SOME INFORMATION MAY BE OMITTED. This clinical summary was aggregated from multiple sources. Caution should be exercised in using it in the provision of clinical care. This summary normalizes information from multiple sources, and as a consequence, information in this document may materially change the coding, format and clinical context of patient data. In addition, data may be omitted in some cases. CLINICAL DECISIONS SHOULD BE BASED ON THE PRIMARY CLINICAL RECORDS. [facility] provides no warranty or guarantee of the accuracy or completeness of information in this document.
--- NOTE | 2023-03-08 22:40 | RAD_ITS ---
STUDY: X-RAY - LUMBAR SPINE REASON FOR EXAM: Female, 72 years old. pain TECHNIQUE: 3 view(s) of the lumbar spine were obtained. COMPARISON: None FINDINGS: Normal lumbar lordosis. Mild scoliosis of the lumbar spine with convexity to the left. There is a normal alignment of the vertebrae. There is multilevel endplate spondylosis of the lumbar vertebrae. There is multi-level degenerative disc disease with multi-level disc space narrowing. This is more severe at L2-L3 and L5-S1. Multilevel bilateral facet hypertrophy. There is no demonstrated fracture. There is atherosclerotic calcification of the abdominal aorta without a demonstrated aneurysm. RAD/Lumbar Spine 2 or 3 Views IMPRESSION: Multilevel degenerative disease with no acute fracture or spondylolisthesis. Electronically Signed: Madelyn Mckinney MD at 22:53 EST ,
--- NOTE | 2023-03-08 22:40 | RAD_ITS ---
STUDY: X-RAY - PELVIS AND RIGHT HIP REASON FOR EXAM: Female, 72 years old. pain TECHNIQUE: 3 views of the pelvis and hip. COMPARISON: None. FINDINGS: There is a non-specific bowel gas pattern. Normal visualized soft tissue structures. There is narrowing with cortical sclerosis and osteophyte formation of the sacroiliac joint consistent with degenerative osteoarthritic changes. Normal bilateral superior and inferior pubic rami. There are degenerative changes of the pubic symphysis with articular narrowing and sclerosis. Normal bilateral ischial tuberosities. Right-sided hip prosthesis in place with normal alignment. No acute fracture. Mild to moderate degenerative disease of the left hip. RAD/HIP, UNI W/ Pelvis 2-3 Views IMPRESSION: Right-sided hip prosthesis in place with normal alignment. No acute fracture or subluxation seen. Multilevel degenerative disease as described. Electronically Signed: Madelyn Mckinney MD at 22:52 EST ,
[2023-03-08 22:49] LABS: Color, Urine Yellow (Yellow); Glucose, Dipstick Normal (Normal); Ketone-Dipstick Negative (Negative); Leukocyte Esterase-Dipstick 25 /ul (Negative); Mucous, Urine 0 SEEN /hpf (<or=2+); Nitrite-Dipstick Positive (Negative); Occult Blood-Urine 25 /ul (Negative); Protein-Dipstick 15 mg/dl (Negative); Specific Gravity, Urine 1.015 (1.002-1.030); Urine Bilirubin Dipstick Negative (Negative); Urine Clarity Sl. Cloudy (Clear); Urine Urobilinogen Normal (Normal)
[2023-03-08 23:03] LABS: Red Blood Cells-Urine 0-5 SEEN /hpf (0-5); Squamous Epithelial Cells - UA 0-5 SEEN /hpf (5-10); White Blood Cells 0-5 SEEN /hpf (0-5)
[2023-03-08 23:04] LABS: Amorphous Sediment 1+ URATE; Bacteria 2+ /hpf (None Seen)
[2023-03-08 23:40] VITALS: RESP 18
== END 2023-03-09 00:04 | disposition home or self-care (01) ==
PROVIDERS: Emergency Provider Emergency Medicine; PCP Family Medicine; Visit Provider Emergency Medicine
DX: R35.0 Frequency of micturition (principal); J44.9 Chronic obstructive pulmonary disease, unspecified; M47.26 Other spondylosis with radiculopathy, lumbar region; F17.210 Nicotine dependence, cigarettes, uncomplicated; I10 Essential (primary) hypertension; Z87.440 Personal history of urinary (tract) infections; Z96.641 Presence of right artificial hip joint
CPT/HCPCS: 72100; 73502; 81001; 87086; 87088; 87186; 99282

== ENCOUNTER 2023-05-29 18:15 | Emergency (ER) | payer MEDICARE, MEDICAID, SELFPAY ==
[2023-05-29 18:15] VITALS: BP 131/99; PULSE 94; RESP 18; TEMP 36.6; O2SAT 93
[2023-05-29 18:17] VITALS: BP 131/99; PULSE 94; RESP 18; TEMP 36.6; O2SAT 93; BMI 50.3
--- NOTE | 2023-05-29 18:41 | CT_ITS ---
INDICATION: LLQ pain EXAMINATION: CT ABDOMEN AND PELVIS WITH CONTRAST - CT Abdomen And Pelvis W/ Contrast Injection TECHNIQUE: Helically acquired images were obtained of the abdomen and pelvis following IV contrast. A radiation dose optimization technique was used for this scan. IV Contrast dosage and agent: 100 mL Isovue-370 Oral contrast: None. COMPARISON: CT abdomen and pelvis November 28, 2018. FINDINGS: LOWER CHEST: Mild dependent atelectasis. No cardiomegaly or pericardial effusion. Coronary artery calcifications are visible. Distal esophagus is normal. LIVER: Villatoro normal density, smooth contour and normal size. No focal mass. GALLBLADDER AND BILIARY TREE: No calcified gallstones. No gallbladder distension or wall edema. No intra- or extrahepatic biliary ductal dilation. PANCREAS: No focal cystic or solid mass. SPLEEN: Normal size without focal cystic or solid mass. ADRENAL GLANDS: 2.7 x 3.5 x 3.3 cm left adrenal nodule not significantly changed compared to prior exam from 2019. Given stability, no follow-up indicated based on ACR incidental adrenal nodule guidelines. KIDNEYS, URETERS and BLADDER: 8-10 hypodensities seen in the right kidney and in the left kidney. Largest hypodensity in the right kidney measures up to 6 cm, unchanged compared to prior exam. These show less than 20 Hounsfield units, consistent with simple cysts, or are too small to characterize with no follow-up indicated. There are however, two ,roughly 1 cm exophytic hyperdense lesions indeterminate lesions mid right kidney. These are grossly unchanged in appearance compared to prior exam from 2019 highly suggestive of benign lesions. No hydronephrosis. Bladder is unremarkable. PERITONEUM: No ascites or free air. No other fluid collection. BOWEL: No evidence of acute appendicitis. No abnormally distended bowel loops or air fluid levels. No wall thickening or mass. Extensive diverticuli are seen throughout the sigmoid and descending colon. There is area of focal inflammatory changes mid descending colon consistent with diverticulitis. No focal fluid. No focal air. LYMPH NODES: No enlarged mesenteric or retroperitoneal lymph nodes. VESSELS: 3.0 x 3.8 cm fusiform dilation infrarenal abdominal aorta. Scattered abdominal aortic intimal calcifications. No stenosis. REPRODUCTIVE ORGANS: Absent or atrophic. ABDOMINAL WALL: No discrete abdominal or pelvic wall hernia. BONES: No lytic or blastic abnormality. Status post total hip arthroplasty on the right. No evidence of complication. Significant lateral curvature lumbar spine, likely degenerative. CT/Abdomen/Pelvis W IV Cont ONLY IMPRESSION: 1. Acute diverticulitis involving the mid descending colon. No focal fluid or free air. 2. 2.7 x 3.5 x 3.3 cm adrenal nodule not significantly changed dating back to 2019. 3. Mild fusiform dilation infrarenal abdominal aorta; 3.0 x 3.8 cm. 4. Numerous renal cysts and indeterminate homogenous hypodensities which no follow-up is indicated. 2 right hyperdense renal lesions likely representing hemorrhagic cysts, roughly 1 cm in size, unchanged compared with 2019 exam. Electronically Signed: Rudolph Schneider DO at 20:52 EDT ,
--- NOTE | 2023-05-29 18:54 | EDS_ITS ---
HPI <CLIVE Rose - Last Filed: 05/29/23 21:24> HPI - GI History of Present Illness Chief Complaint: Abd Pain Narrative Narrative: Patient presenting today due to nausea and sharp left lower quadrant abdominal pain that she has had intermittently over the past 2 days. She reports a history of diverticulitis and thinks that this feels similar. She reports that over the past few days she has been constipated, she did take MiraLAX yesterday and did have a small bowel movement today. She has had intermittent low-grade fevers over the past 2 days. She denies any history of kidney stones. She denies vomiting, urinary symptoms, melena, and hematochezia. [facility] <CLIVE Rose - Last Filed: 05/29/23 21:24> [facility] Medical History COPD (chronic obstructive pulmonary disease) Depression GERD (gastroesophageal reflux disease) History of diverticulitis HTN (hypertension) Home Medications omeprazole 10 mg capsule,delayed release 20 mg PO DAILY GERD 07/31/13 [History Last Taken Unknown] sertraline 100 mg tablet 100 mg PO QHS Depression 07/31/13 [History Last Taken 06/24/17 21:12] Verapamil Hcl [Verapamil Sr] 270 mg PO DAILY blood pressure 06/25/17 [History Last Taken 06/24/17 21:38] bupropion HCl 150 mg tablet,12 hr sustained-release 150 mg PO DAILY Mood 06/25/17 [History Last Taken 06/25/17 08:56] lisinopril 20 mg-hydrochlorothiazide 12.5 mg tablet (Zestoretic) 1 ea PO DAILY Hypertension 06/25/17 [History Last Taken Unknown] pravastatin 40 mg tablet 40 mg PO QHS Cholestrol 06/25/17 [History Last Taken Unknown] sennosides 8.6 mg tablet (senna) 8.6 mg PO DAILY Bowel movement 06/25/17 [History Last Taken 06/25/17 08:56] tizanidine 4 mg tablet 4 mg PO DAILY Muscle relaxant 06/25/17 [History Last Taken Unknown] nystatin 100,000 unit/gram topical powder (Nyamyc) 1 applic topical BID 07/13/17 [Rx Last Taken Unknown] sennosides 8.6 mg-docusate sodium 50 mg tablet 2 tab PO BID #120 tabs 07/13/17 [Rx Last Taken Unknown] amoxicillin 875 mg-potassium clavulanate 125 mg tablet 1 tab PO BID 10 days #19 tabs 05/29/23 [Rx Last Taken Unknown] hydrocodone-acetaminophen 5-325mg 5mg-325mg 1 tab PO Q4H PRN PRN Pain 2 days #7 TABLETS 05/29/23 [Rx Last Taken Unknown] ondansetron 4 mg disintegrating tablet 4 mg PO Q8H PRN PRN Nausea #10 tabs 05/29/23 [Rx Last Taken Unknown] Allergy/AdvReac Type Severity Reaction Status Date / Time nickel Allergy Hives Verified 05/29/23 18:17 ibuprofen AdvReac Other Verified 05/29/23 18:17 metronidazole [From Flagyl] AdvReac Swelling Verified 05/29/23 18:17 Surgical History History of total hip replacement Social History household members: none Smoking Status: Current every day smoker tobacco type: cigarettes substance use type: does not use ROS <CLIVE Rose - Last Filed: 05/29/23 21:24> ROS ED Constitutional Constitutional ED: Reports fever(s); Denies chills Cardiovascular Cardiovascular: Denies chest pain or palpitations Respiratory/Chest Respiratory/Chest: Denies cough or dyspnea Gastrointestinal Gastrointestinal: Reports abdominal pain, constipation and nausea; Denies diarrhea, melena or vomiting Genitourinary Genitourinary ED: Denies dysuria, hematuria or urinary urgency Musculoskeletal Musculoskeletal: Denies arthralgias or myalgias Integumentary Denies rash Neurologic Neurologic: Denies weakness EXAM <CLIVE Rose - Last Filed: 05/29/23 21:24> Physical Exam Const Vital Signs: 05/29/23 18:15 05/29/23 18:17 05/29/23 19:30 Temperature 97.9 F 97.9 F Temperature Source Temporal Temporal Pulse Rate 94 94 82 Respiratory Rate 18 18 20 H Blood Pressure 131/99 H 131/99 H 107/76 Blood Pressure Mean 109 109 87 Pulse Ox 93 93 91 Oxygen Delivery Method Room Air Room Air Room Air 05/29/23 20:21 05/29/23 21:14 Temperature 98.8 F Temperature Source Pulse Rate 86 86 Respiratory Rate 22 H 22 H Blood Pressure 153/63 H 153/63 H Blood Pressure Mean 85 93 Pulse Ox 93 93 Oxygen Delivery Method Room Air Positive well nourished, well developed and no apparent distress General Appearance ED: well developed HEENT Reports normocephalic and head/scalp atraumatic Mouth ED: Yes moist mucous membranes normal Eyes PERRL and EOMs intact bilaterally Neck full ROM and supple Chest Wall inspection of chest normal Resp normal respiratory effort and clear to auscultation bilaterally Cardio regular rate and regular rhythm GI soft to palpation, non-distended and no masses GI Narrative: Left lower quadrant tenderness to palpation, no rigidity, guarding, or peritoneal signs Back/Spine normal ROM and normal to inspection Extremity normal to inspection and full ROM Neuro oriented x3, CN's II-XII intact bilaterally, moves all extremities, no focal motor deficits and no sensory deficits noted Sensorium / Orientation: awake and alert Psych mental status grossly normal and thought process normal Skin no rashes or lesions noted and no wounds <Dr. Douglas Peck DO - Last Filed: 05/30/23 01:26> Physical Exam Const Vital Signs: 05/29/23 18:15 05/29/23 18:17 05/29/23 19:30 Temperature 97.9 F 97.9 F Temperature Source Temporal Temporal Pulse Rate 94 94 82 Respiratory Rate 18 18 20 H Blood Pressure 131/99 H 131/99 H 107/76 Blood Pressure Mean 109 109 87 Pulse Ox 93 93 91 Oxygen Delivery Method Room Air Room Air Room Air 05/29/23 20:21 05/29/23 21:14 Temperature 98.8 F Temperature Source Pulse Rate 86 86 Respiratory Rate 22 H 22 H Blood Pressure 153/63 H 153/63 H Blood Pressure Mean 85 93 Pulse Ox 93 93 Oxygen Delivery Method Room Air MDM <CLIVE Rose - Last Filed: 05/29/23 21:24> [facility] Narrative Medical decision making narrative: Patient presenting with left lower quadrant abdominal pain with concerns for diverticulitis as she has had this in the past. She is nontoxic-appearing and in no acute distress, vitals are unremarkable. Labs will be obtained to rule out leukocytosis, anemia, electrolyte abnormality, EULA, and UTI, CT of the abd omen and pelvis will be obtained to rule out diverticulitis, kidney stone, bowel obstruction, and other etiology. She was given IV fluids and Zofran, she declined analgesia. CT scan shows acute diverticulitis of the mid descending colon, stable adrenal/renal lesions. She will be treated with Augmentin with first dose here. I will give her a prescription for Augmentin, Maddock, and Zofran. She is to follow-up with her PCP in the next 5 to 7 days and has been given return instructions. She will be discharged home in stable condition and is comfortable with plan. Lab Data Attestation: I reviewed the patient's lab results. Lab results narrative: BUN 26, creatinine 1.15 Labs: Laboratory Results - last 24 hr 05/29/23 05/29/23 18:30 20:15 WBC 7.0 RBC 4.90 Hgb 14.4 Hct 44.1 MCV 90.0 MCH 29.4 MCHC 32.7 RDW Std Deviation 48.2 H RDW Coeff of Duyen 14.6 Plt Count 255 MPV 10.5 Immature Gran % (Auto) 0.400 Neut % (Auto) 75.7 H Lymph % (Auto) 12.6 L [place] % (Auto) 10.2 H Eos % (Auto) 0.7 Baso % (Auto) 0.4 Absolute Neuts (auto) 5.3 Absolute Lymphs (auto) 0.89 Nucleated RBC % 0 Sodium 136 Potassium 3.9 Chloride 104 Carbon Dioxide 26.0 Anion Gap 6 BUN 26 H Creatinine 1.15 H Estim Creat Clear Calc 58.79 Est GFR (MDRD) Af Amer 60 Est GFR (MDRD) Non-Af 49 L BUN/Creatinine Ratio 22.6 H Glucose 98 Calcium 9.2 Total Bilirubin 0.60 AST 20 ALT 23 Alkaline Phosphatase 79 Total Protein 7.4 Albumin 3.7 Globulin 3.7 Albumin/Globulin Ratio 1.0 Lipase 19 Urine Color Yellow Urine Clarity Clear Urine pH 6.5 Ur Specific [place] 1.015 Urine Protein Negative Urine Glucose (UA) Normal Urine Ketones Negative Urine Occult Blood 25 H Urine Nitrite Positive H Urine Bilirubin Negative Urine Urobilinogen 1 H Ur Leukocyte Esterase Negative Urine RBC 0-5 SEEN Urine WBC 0-5 SEEN Ur Squamous Epith Cells 0-5 SEEN Urine Bacteria 1+ Urine Mucus 0 SEEN Radiography Diagnostic Testing: Clinical Impression(s) from Imaging Studies Abdomen/Pelvis CT 05/29/23 18:41 IMPRESSION: 1. Acute diverticulitis involving the mid descending colon. No focal fluid or free air. 2. 2.7 x 3.5 x 3.3 cm adrenal nodule not significantly changed dating back to 2019. 3. Mild fusiform dilation infrarenal abdominal aorta; 3.0 x 3.8 cm. 4. Numerous renal cysts and indeterminate homogenous hypodensities which no follow-up is indicated. 2 right hyperdense renal lesions likely representing hemorrhagic cysts, roughly 1 cm in size, unchanged compared with 2019 exam. Electronically Signed: Rudolph Schneider DO at 20:52 EDT , <Dr. Douglas Peck DO - Last Filed: 05/30/23 01:26> [facility] MDM Narrative Medical decision making narrative: Patient presenting with left lower quadrant abdominal pain with concerns for diverticulitis as she has had this in the past. She is nontoxic-appearing and in no acute distress, vitals are unremarkable. Labs will be obtained to rule out leukocytosis, anemia, electrolyte abnormality, EULA, and UTI, CT of the abdomen and pelvis will be obtained to rule out diverticulitis, kidney stone, bowel obstruction, and other etiology. She was given IV fluids and Zofran, she declined analgesia. CT scan shows acute diverticulitis of the mid descending colon, stable adrenal/renal lesions. She will be treated with Augmentin with first dose here. I will give her a prescription for Augmentin, Maddock, and Zofran. She is to follow-up with her PCP in the next 5 to 7 days and has been given return instructions. She will be discharged home in stable condition and is comfortable with plan. I have personally performed a face to face assessment of the patient and have reviewed the STEVE Note. I performed a substantive portion of the visit including all aspects of the following. My madden findings include: History is 72-year-old female history of diverticulitis presenting to the emergency room with left lower abdominal pain. Patient notes some recent constipation. She states the pain in her abdomen feels very much like her prior diverticulitis. She denies any rectal bleeding. Exam is tender palpation lateral mid to lower abdomen more in the mid axillary line/far lateral anterior abdomen. Normal bowel sounds. Patient no acute distress otherwise appears well Medical Decison Making basic blood work is obtained fairly unremarkable white count is 7 hemoglobin 14.4. Retinae 1.15. Urinalysis with 1+ bacteria 0-5 whites 0-[address] demonstrates a focal area of diverticulitis in the descending colon. She will be treated with antibiotics. Also noted to have an infrarenal aorta 3 x 3.8 cm. Also noted adrenal nodule which is unchanged. History & Record Review Discussion w/independent historian: Patient Lab Data Labs: Laboratory Results - last 24 hr 05/29/23 05/29/23 18:30 20:15 WBC 7.0 RBC 4.90 Hgb 14.4 Hct 44.1 MCV 90.0 MCH 29.4 MCHC 32.7 RDW Std Deviation 48.2 H RDW Coeff of Duyen 14.6 Plt Count 255 MPV 10.5 Immature Gran % (Auto) 0.400 Neut % (Auto) 75.7 H Lymph % (Auto) 12.6 L [place] % (Auto) 10.2 H Eos % (Auto) 0.7 Baso % (Auto) 0.4 Absolute Neuts (auto) 5.3 Absolute Lymphs (auto) 0.89 Nucleated RBC % 0 Sodium 136 Potassium 3.9 Chloride 104 Carbon Dioxide 26.0 Anion Gap 6 BUN 26 H Creatinine 1.15 H Estim Creat Clear Calc 58.79 Est GFR (MDRD) Af Amer 60 Est GFR (MDRD) Non-Af 49 L BUN/Creatinine Ratio 22.6 H Glucose 98 Calcium 9.2 Total Bilirubin 0.60 AST 20 ALT 23 Alkaline Phosphatase 79 Total Protein 7.4 Albumin 3.7 Globulin 3.7 Albumin/Globulin Ratio 1.0 Lipase 19 Urine Color Yellow Urine Clarity Clear Urine pH 6.5 Ur Specific [place] 1.015 Urine Protein Negative Urine Glucose (UA) Normal Urine Ketones Negative Urine Occult Blood 25 H Urine Nitrite Positive H Urine Bilirubin Negative Urine Urobilinogen 1 H Ur Leukocyte Esterase Negative Urine RBC 0-5 SEEN Urine WBC 0-5 SEEN Ur Squamous Epith Cells 0-5 SEEN Urine Bacteria 1+ Urine Mucus 0 SEEN Radiography Diagnostic Testing: Clinical Impression(s) from Imaging Studies Abdomen/Pelvis CT 05/29/23 18:41 IMPRESSION: 1. Acute diverticulitis involving the mid descending colon. No focal fluid or free air. 2. 2.7 x 3.5 x 3.3 cm adrenal nodule not significantly changed dating back to 2019. 3. Mild fusiform dilation infrarenal abdominal aorta; 3.0 x 3.8 cm. 4. Numerous renal cysts and indeterminate homogenous hypodensities which no follow-up is indicated. 2 right hyperdense renal lesions likely representing hemorrhagic cysts, roughly 1 cm in size, unchanged compared with 2019 exam. Electronically Signed: Rudolph Schneider DO at 20:52 EDT , Discharge Plan Triage Chief Complaint: Abd Pain ED Midlevel Provider: Sharita Salinas ED Provider: Douglas Peck Dx/Rx/DC Orders Clinical Impression: Diverticulitis, Chronic kidney disease, Abdominal pain, Aneurysm of infrarenal abdominal aorta Instructions: AAA, Diverticulitis Dc Prescriptions: New amoxicillin-pot clavulanate 875-125 mg tablet 1 tab PO BID 10 Days Qty: 19 0RF ondansetron 4 mg tablet,disintegrating 4 mg PO Q8H PRN PRN (Reason: Nausea) Qty: 10 0RF hydrocodone-acetaminophen 5-325 mg tablet 1 tab PO Q4H PRN PRN (Reason: Pain) 2 Days Qty: 7 0RF No Action sertraline 100 MG tablet 100 mg PO QHS omeprazole 10 MG capsule 20 mg PO DAILY bupropion HCl 150 MG tablet sustained-release 12 hr 150 mg PO DAILY sennosides [senna] 8.6 MG tablet 8.6 mg PO DAILY lisinopril-hydrochlorothiazide [Zestoretic] 1 EACH tablet 1 ea PO DAILY pravastatin 40 MG tablet 40 mg PO QHS tizanidine 4 MG tablet 4 mg PO DAILY Verapamil Hcl [Verapamil Sr] 180 MG Cap24h.Pel 270 mg PO DAILY sennosides-docusate sodium 1 TABLET tablet 2 tab PO BID Qty: 120 0RF nystatin [Nyamyc] 1 APPLIC bottle 1 applic topical BID 0RF Protocol: *Topical Application Instructions APPLICATION INSTRUCTIONS: apply under bilateral breasts Primary Care Provider: Dewayne Quan Referrals: Dewayne Quan MD [Primary Care Provider] - 5-7 Days Activity Restrictions/Additional Instructions: Please follow-up with your PCP and return for any worsening of your symptoms. Your abdominal aortic aneurysm appears stable at this time and requires follow- up yearly. Please discuss this with your doctor Disposition Disposition: Home, Self Care Discharge Date/Time: 05/29/23 21:15
[2023-05-29] MEDS: Ondansetron 4 MG/2 ML Vial IV (19:00)
[2023-05-29] MEDS: 0.9% Normal Saline (1000mL) 1,000 ML 1000 ML IV (19:00)
[2023-05-29 19:18] LABS: Absolute Lymphocyte Count 0.89 X10^3/uL (0.83-4.51); Absolute Neutrophil Count 5.3 X10^3/uL (2.0-7.7); Basophil# 0.03 X10^3/uL; Basophil% 0.4 % (0-1); Eosinophil# 0.05 X10^3/uL; Eosinophils% 0.7 % (0-5); Hematocrit 44.1 % (37-47); Hemoglobin 14.4 g/dL (12.0-15.0); Lymphocyte # 0.89 X10^3/ul (0.83-4.51); Lymphocyte % 12.6 % (19-41); Mean Corp Hgb Conc 32.7 g/dL (32-36); Mean Corpuscular Hgb 29.4 pg (27.0-32.0); Mean Platelet Vol. 10.5 fl (6.2-12.0); Monocyte# 0.72 X10^3/uL; Monocyte% 10.2 % (0-10); NRBC Flagged by Analyzer 0 % (0-5); Neutrophil # 5.32 X10^3/uL (2.7-7.7); Neutrophil % 75.7 % (47-70); Platelet Count 255 K/mm3 (150-450); RBC Distribution Width CV 14.6 % (11.6-14.6); RBC Distribution Width SD 48.2 fl (35.1-43.9)
[2023-05-29 19:30] VITALS: BP 107/76; PULSE 82; RESP 20; O2SAT 91
[2023-05-29 19:35] LABS: AST(SGOT) 20 U/L (15-37); Alanine Aminotransfer ALT/SGPT 23 U/L (13-56); Albumin, Serum 3.7 g/dL (3.2-5.0); Alkaline Phosphatase 79 U/L (45-117); Anion Gap 6 (5-15); BUN 26 mg/dL (7-18); BUN/Creat Ratio 22.6 RATIO (10-20); Calcium,Total 9.2 mg/dL (8.5-10.1); Chloride 104 mmol/L (98-107); Creatinine, Serum 1.15 mg/dL (0.55-1.02); EST Glomerular Filtration Rate 49 mL/min (>60); Est Glom Filt Rate - Afr Amer 60 mL/min (>60); Estimated Creatinine Clearance 58.79 ml/min; Globulin 3.7 g/dL (2.2-4.2); Glucose 98 mg/dL (74-106); Lipase 19 U/L (13-75); Potassium 3.9 mmol/L (3.5-5.1); Protein, Total 7.4 g/dL (6.4-8.2); Sodium Level 136 mmol/L (136-145)
[2023-05-29 20:21] VITALS: BP 153/63; PULSE 86; RESP 22; O2SAT 93
[2023-05-29 20:25] LABS: Mucous, Urine 0 SEEN /hpf (<or=2+)
[2023-05-29 20:39] LABS: Color, Urine Yellow (Yellow); Glucose, Dipstick Normal (Normal); Ketone-Dipstick Negative (Negative); Leukocyte Esterase-Dipstick Negative /ul (Negative); Nitrite-Dipstick Positive (Negative); Occult Blood-Urine 25 /ul (Negative); Protein-Dipstick Negative (Negative); Specific Gravity, Urine 1.015 (1.002-1.030); Urine Bilirubin Dipstick Negative (Negative); Urine Clarity Clear (Clear); Urine Urobilinogen 1 mg/dl (Normal); Urine pH 6.5 (5.0 - 8.0)
[2023-05-29 20:46] LABS: White Blood Cells 0-5 SEEN /hpf (0-5)
[2023-05-29 20:47] LABS: Bacteria 1+ /hpf (None Seen); Red Blood Cells-Urine 0-5 SEEN /hpf (0-5); Squamous Epithelial Cells - UA 0-5 SEEN /hpf (5-10)
[2023-05-29] MEDS: Amox/Clavulanate 875 MG Tablet PO (21:04)
[2023-05-29 21:14] VITALS: BP 153/63; PULSE 86; RESP 22; TEMP 37.1; O2SAT 93
== END 2023-05-29 21:15 | disposition home or self-care (01) ==
PROVIDERS: Physician Assistant; Emergency Provider Emergency Medicine; PCP Family Medicine; Visit Provider Emergency Medicine
DX: K57.32 Diverticulitis of large intestine without perforation or abscess without bleeding (principal); J44.9 Chronic obstructive pulmonary disease, unspecified; N18.9 Chronic kidney disease, unspecified; E27.8 Other specified disorders of adrenal gland; I12.9 Hypertensive chronic kidney disease with stage 1 through stage 4 chronic kidney disease, or unspecified chronic kidney disease; I71.43 Infrarenal abdominal aortic aneurysm, without rupture; F17.210 Nicotine dependence, cigarettes, uncomplicated; K21.9 Gastro-esophageal reflux disease without esophagitis; R50.9 Fever, unspecified; N28.1 Cyst of kidney, acquired; R10.9 Unspecified abdominal pain
CPT/HCPCS: 74177; 80053; 81001; 83690; 85025; 87077; 87086; 87088; 87186; 96361; 96374; 99283; Q9967; A4216; J2405

== ENCOUNTER 2024-09-10 14:52 | Emergency (ER) | payer MEDICARE, MEDICAID, SELFPAY ==
[2024-09-10 14:52] VITALS: BP 125/74; PULSE 79; RESP 20; TEMP 37.1; O2SAT 96; BMI 47.3
--- NOTE | 2024-09-10 19:09 | ED.RN ---
PT LEFT WITHOUT BEING SEEN FROM TRIAGE
--- OUTSIDE RECORDS SUMMARY | 2024-09-10 19:19 | XMS RPT_ITS | CCD ---
Author Organization [facility] Team Providers Care Pan Puller Name Role Phone Rosanna Klein Unavailable KleinRosanna gudino Unavailable Dewayne Chung MD Primary Care Provider Dewayne Chung MD Primary Care Provider Dewayne Chung MD Primary Care Provider Dr. Dewayne Chung Primary Care Provider Dr. Dewayne Chung Referring Provider Dr. Dewayne Chung Other Provider Dr. Osito Nichols Attending Provider Dewayne Chung MD Primary Care Provider [phone] Dewayne Chung MD Primary Care Provider Bria DIMAS.Allie STYLES Unavailable Pdamini Solorzano PA-C Unavailable Douglas Peck Attending Unavailable Dewayne Chung Primary Care Unavailable Isrrael Herman Attending Unavailable Dewayne Chung Primary Care Unavailable Dewayne Chung Referring Unavailable Willie Velázquez Attending Unavailable Dewayne Chung Primary Care Unavailable Dewayne Chung MD Primary Care Provider DEWAYNE CHUNG Attending Unavailable DEWAYNE CHUNG Primary Care Unavailable DEWAYNE CHUNG Primary Care Unavailable ALLIE LEMUS Attending Unavailable DEWAYNE CHUNG Referring Unavailable DEWAYNE CHUNG Primary Care Unavailable DORIAN KERN Referring Unavailable DEWAYNE CHUNG Primary Care Unavailable JULIET, DEWAYNE A Primary Care Unavailable GRIFFIN GARRISON Attending Unavailable KNOBLE, ALLIE Referring Unavailable STELLA, DEONTE Attending Unavailable JULIET, DEWAYNE A Primary Care Unavailable STELLA, DEONTE Attending Unavailable JULIET, DEWAYNE A Primary Care Unavailable SELF Referring Unavailable STELLA, DEONTE Referring Unavailable JULIET, DEWAYNE A Primary Care Unavailable NAOMY PARKER Attending Unavailable JULIET, DEWAYNE A Primary Care Unavailable DORIAN KERN Attending Unavailable JULIET, DEWAYNE A Primary Care Unavailable JULIET, DEWAYNE A Referring Unavailable JULIET, DEWAYNE A Primary Care Unavailable JULIET, DEWAYNE A Primary Care Unavailable NAOMY PARKER Attending Unavailable SELF Referring Unavailable JULIET, DEWAYNE A Attending Unavailable JULIET, DEWAYNE A Primary Care Unavailable JULIET, DEWAYNE A Attending Unavailable JULIET, DEWAYNE A Primary Care Unavailable JULIET, DEWAYNE A Primary Care Unavailable KEKE BAE Referring Unavailable JULIET, DEWAYNE A Primary Care Unavailable KNCATRACHITA, ALLIE Attending Unavailable JULIET, DEWAYNE A Primary Care Unavailable GRIFFIN GARRISON Attending Unavailable KNOBLE, ALLIE Referring Unavailable JULIET, DEWAYNE A Referring Unavailable JULIET, DEWAYNE A Primary Care Unavailable JULIET, DEWAYNE A Attending Unavailable JULIET, DEWAYNE A Primary Care Unavailable STELLA, DEONTE Attending Unavailable JULIET, DEWAYNE A Primary Care Unavailable JULIET, DEWAYNE A Primary Care Unavailable JULIET, DEWAYNE A Referring Unavailable JULIET, DEWAYNE A Primary Care Unavailable KNOBLE, ALLIE Referring Unavailable JULIET, DEWAYNE A Primary Care Unavailable KNOBLE, ALLIE Referring Unavailable JULIET, DEWAYNE A Primary Care Unavailable GRIFFIN GARRISON Attending Unavailable KNOBLE, ALLIE Referring Unavailable Allergies Allergy Classification Reported Allergen(s) Allergy Type Date of Onset Reaction(s) Facility (3 sources) Ibuprofen; Translations: [IBUPROFEN] Drug Allergy 3 [facility] Work Phone: (20 sources) Ibuprofen Drug Allergy 3 Vomiting [facility] Work Phone: (20 sources) metroNIDAZOLE; Translations: [METRONIDAZOLE HCL] Drug Allergy 9 Itching, Other: See Comments [facility] Work Phone: (20 sources) nickel; Translations: [NICKEL] Drug Allergy 09-12-201 7 Rash [facility] Work Phone: (10 sources) metroNIDAZOLE Drug Allergy 2 Swelling [facility] (1 source) Ibuprofen Drug Allergy 5 [facility] Repository (1 source) metroNIDAZOLE Drug Allergy 5 [facility] Repository (1 source) nickel Drug Allergy 5 [facility] Repository Medications Current Medications Medication Drug Class(es) Dates Sig (Normalized) Sig (Original) [id number] 200 actuat albuterol 0.09 mg/actuat metered dose inhaler (20 sources) beta2-Adrenergic Agonist Start: 12-16-2023 take 2 puff(s) by inhalation every four hours as needed albuterol HFA (PROVENTIL HFA, VENTOLIN HFA) 90 mcg/actuation inhaler Inhale 2 Puffs as instructed every 4 hours as needed. 1 Each 5 12/16/2023 Active Start: 04-22-2021 End: 12-16-2023 take 2 puff(s) by inhalation every six hours as needed albuterol HFA (PROVENTIL HFA, VENTOLIN HFA) 90 mcg/actuation inhaler Indications: Pulmonary emphysema, unspecified emphysema type (HCC) Inhale 2 Puffs as instructed every 6 hours as needed. 1 Each 5 03/17/2023 12/16/2023 Discontinued Start: 06-05-2019 End: 11-08-2020 take 2 puff(s) by inhalation every six hours as needed albuterol HFA (PROVENTIL HFA, VENTOLIN HFA) 90 mcg/actuation inhaler Indications: Pulmonary emphysema, unspecified emphysema type (HCC) Inhale 2 Puffs as instructed every 6 hours as needed. 1 Inhaler 2 06/05/2019 11/08/2020 Discontinued hypertension [I10] 11/19/2006 Osteoarthritis of multiple joints [...] [M47.816] 01/15/2016 DDD (degenerative disc disease), lumbar [M51.36*01/15/2016 Diverticulitis of large intestine without perfo*06/03/2016 07/28/2017 Primary osteoarthritis of right hip [M16.11] 09/21/2016 Chronic midline low back pain without sciatica *11/09/2016 07/28/2017 CKD (chronic kidney disease) stage 3, GFR 30-59*03/12/2017 07/28/2017 Vertigo [R42] 06/14/2017 Osteoarthritis of right hip [M16.11] 06/23/2017 06/25/2017 Encounter for Medicare annual wellness exam [Z0*11/23/2017 Screening for osteoporosis [Z13.820] 11/23/2017 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 Normal [facility] CNTHERAPYon 05-16-2024 CNTHERAPY OT/PT/Speech Visit (PTWS) DIANNE HOLLY ([id number]) 1950 F Date Time Provider Department 05/16/24 11:45 AM VERENA FRANKLIN PTNYDIA Date Time Provider Department Center 05/16/2024 11:45 AM [id number], MARIAH PTNYDIA Lin Reason for Visit: Physical Therapy [503] Primary Visit Diagnosis: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, G89.29] Allergies As of Date: 05/16/2024 Noted Allergy Reaction FLAGYL (METRONIDAZOLE HCL) 01/29/2009 9 - Itching 14 - Other: See Comments Comments: nausea/ throat swelling IBUPROFEN 07/04/2012 11 - Vomiting Comments: Hematemesis - [facility] 06/21/2012 NICKEL 11/10/2016 2 - Rash Comments: Can only wear gold earrings Date Reviewed: 04/26/2024 Reviewed by: Rosanna Laurent LPN - Fully Assessed Prescriptions as of 05/16/2024 - fluticasone-umeclidi n-vilanter (TRELEGY ELLIPTA) 100-62.5-25 mcg inhalation powder Inhale 1 Puff as instructed once daily. - solifenacin (VESICARE) 5 mg tablet Take 1 tablet by mouth once daily. - buPROPion SR (WELLBUTRIN SR) 150 mg 12 hr tablet Take 1 tablet by mouth once daily. - cyanocobalamin (VITAMIN B-12) 1,000 mcg tab Take 1 tablet by mouth once daily. - lisinopril-hydroCHLO ROthiazide (ZESTORETIC) 20-12.5 mg per tablet Take 2 tablets by mouth once daily. - pravastatin (PRAVACHOL) 40 mg tablet Take 1 tablet by mouth daily at bedtime. - sertraline (ZOLOFT) 100 mg tablet Take 1.5 tablets by mouth every evening. - verapamil SR (CALAN SR) 180 mg CR tablet Take 1.5 tablets by mouth once daily. - magnesium glycinate 100 mg magnesium capsule Take 2 capsules by mouth daily at bedtime. - melatonin 1 mg chew Take 1 mg by mouth at bedtime as needed for insomnia. - albuterol HFA (PROVENTIL HFA, VENTOLIN HFA) 90 mcg/actuation inhaler Inhale 2 Puffs as instructed every 4 hours as needed. - omeprazole (PRILOSEC) 20 mg capsule Take 1 capsule by mouth two times a day. - CPAP/BIPAP/OTHER autoCPAP 13-20 cmH2O with 1.5 LPM O2 bleed in DME [employer] - ondansetron orally disintegrating (ZOFRAN ODT) 4 mg disintegrating tablet Take 1 tablet by mouth every 8 hours as needed. - MEDICAL SUPPLY BEDSIDE COMMODE. dx: right total hip replacement. z96.641 - COMPOUNDED PRESCRIPTION Bedside Commode Dx: right total hip replacement Z96.641 Normal [facility] [id number] 05-04-2024 [id number] HNO ID: [id number] Author: GRIFFIN GARRISON PT Service: ? Author Type: Physical Therapist Type: [id number] Filed: 05/04/2024 13:06 Note Text: [facility] Therapy Physical Therapy Plan of Care Certification Patient Name: Dianne Holly : 1950 [facility] #: [id number] Date: 05/04/2024 To: Allie Lemus APRN.* From Therapist: Griffin Garrison PT RE: Patient Certification/ Recertification Your review, approval and electronic signature are required in order to comply with Payor: [facility] MEDICARE / Plan: [facility] DUAL COMPLETE HMO POS SNP / Product Type: Medicare / regulations. The identified Physical Therapy PLAN OF CARE for the patient is as follows: M54.41, G89.29 Chronic 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 (primary encounter diagnosis) PLAN OF CARE: Assessment: Dianne Holly presents with chief complaint of LBP and sciatica that interferes with standing . The patient presents with impairments in independence in exercise, overall function, posture, and strength. Patient did not complete the PROMIS? (Patient Reported Outcome Measures Information System). Prognosis for therapy is Good due to: current objective clinical presentation . Pt demonstrates a lumbar flexion direction of preference. The patient will benefit from skilled therapy services to meet the goals established for this plan of care as noted below. Classification Pain Mechanism Classification: Neuropathic Low Back Pain Classification: Movement Control Goals for Episode of Care: established 05/04/24 Independent in home exercises. Stand / Walk for 30 minutes without pain/symptoms. Sleep through night without pain/symptoms. Pt will demo RA strength of 4/5 or greater to improve posture when standing/walking Patient Goals: Improve her symptoms Time Frame for Goals and Treatment : 06/29/24 Planned Interventions, Frequency, and Duration: Current Frequency: 1x/week Duration: 4 weeks Total Number of Visits Planned: 4 Planned Treatment Interventions: Therapeutic exercise (98706), Neuromuscular re-education (78225), Manual therapy (37931), Therapeutic activities (17826), Gait Training (87089), Self-senior care management (92839), Patient/Family/Careg iver Education PLAN FOR NEXT VISIT: Work on achieving a PPT in sitting Patient demonstrates good understanding of plan of care and treatment. The above goals and plan of care were discussed and agreed upon by patient/family. For further details regarding this patient refer to the Physical Therapy electronically documented visit dated 05/04/2024. Provider Attestation I have reviewed the treatment plan for Dianne Holly, [facility]# [id number] for the period of 05/04/24 -- 06/08/24, established on 05/04/2024. Signature certifies the need for therapy services. Normal [facility] CNTHERAPYon 05-04-2024 CNTHERAPY OT/PT/Speech Visit (PTWS) AVNIMARIECandy Merida ([id number]) 1950 F Date Time Provider Department 05/04/24 12:15 PM GRIFFIN GARRISON PTWS Date Time Provider Department Center 05/04/2024 12:15 PM [id number], COREY PTWS Alyssa Lin Reason for Visit: PT Eval [747] Primary Visit Diagnosis: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, G89.29] Allergies As of Date: 05/04/2024 Noted Allergy Reaction FLAGYL (METRONIDAZOLE HCL) 01/29/2009 9 - Itching 14 - Other: See Comments Comments: nausea/ throat swelling IBUPROFEN 07/04/2012 11 - Vomiting Comments: Hematemesis - [facility] 06/21/2012 NICKEL 11/10/2016 2 - Rash Comments: Can only wear gold earrings Date Reviewed: 04/26/2024 Reviewed by: Rosanna Laurent LPN - Fully Assessed Prescriptions as of 05/04/2024 - fluticasone-umeclidi n-vilanter (TRELEGY ELLIPTA) 100-62.5-25 mcg inhalation powder Inhale 1 Puff as instructed once daily. - solifenacin (VESICARE) 5 mg tablet Take 1 tablet by mouth once daily. - buPROPion SR (WELLBUTRIN SR) 150 mg 12 hr tablet Take 1 tablet by mouth once daily. - cyanocobalamin (VITAMIN B-12) 1,000 mcg tab Take 1 tablet by mouth once daily. - lisinopril-hydroCHLO ROthiazide (ZESTORETIC) 20-12.5 mg per tablet Take 2 tablets by mouth once daily. - pravastatin (PRAVACHOL) 40 mg tablet Take 1 tablet by mouth daily at bedtime. - sertraline (ZOLOFT) 100 mg tablet Take 1.5 tablets by mouth every evening. - verapamil SR (CALAN SR) 180 mg CR tablet Take 1.5 tablets by mouth once daily. - magnesium glycinate 100 mg magnesium capsule Take 2 capsules by mouth daily at bedtime. - melatonin 1 mg chew Take 1 mg by mouth at bedtime as needed for insomnia. - albuterol HFA (PROVENTIL HFA, VENTOLIN HFA) 90 mcg/actuation inhaler Inhale 2 Puffs as instructed every 4 hours as needed. - omeprazole (PRILOSEC) 20 mg capsule Take 1 capsule by mouth two times a day. - CPAP/BIPAP/OTHER autoCPAP 13-20 cmH2O with 1.5 LPM O2 bleed in DME [employer] - ondansetron orally disintegrating (ZOFRAN ODT) 4 mg disintegrating tablet Take 1 tablet by mouth every 8 hours as needed. - MEDICAL SUPPLY BEDSIDE COMMODE. dx: right total hip replacement. z96.641 - COMPOUNDED PRESCRIPTION Bedside Commode Dx: right total hip replacement Z96.641 Normal [facility] L/S Spine Bending Flex/[place] 04-27-2024 L/S Spine Bending Flex/Ext [facility] Imaging Services [address] [place] [address] [id number] L/S Spine Bending Flex/Ext MR#: [id number] Acct: [id number] Name: DIANNE HOLLY Rep #: [id number] : 1950 F 73 From: Tish Lynne nd, MD PCP: Dr. Dewayne Chung MD Status: DEP AMB Study: L/S Spine Bending Flex/Ext Date of Exam: 04/27 Exam# [id number] Ordering Dr: Willie Velázquez MD PROCEDURE: L/S SPINE FLEX/EXT REASON FOR EXAM: 73-year-old female, lumbar pain. TECHNIQUE: Flexed and extended lateral views of the lumbar spine. COMPARISON: None. FINDINGS: Mild chronic vertebral body height loss of the L4 and L5 vertebral bodies. Chronic endplate changes of the L1-2, L2-3 and L5-S1 disc spaces. No evidence of acute fracture or traumatic subluxation. Moderate to severe degenerative disc disease. No spondylolisthesis. No translational instability. Partially visualized hip arthroplasty. Calcification of the abdominal aorta. RAD/L/S Spine Bending Flex/Ext IMPRESSION: ADVANCED DEGENERATIVE CHANGES OF THE LUMBAR SPINE. Reading Location: [facility] CC: Dr. Willie Velázquez MD; Dr. Dewayne Chung MD Crisis Therapist: Signed Normal [facility] Orthopedic Visit Reporton Orthopedic Visit Report [facility] [address] [place] [address] OFFICE VISIT Date of Service: 04/27/24 MR#: [id number] Acct: [id number] Name: DIANNE HOLLY Rep #: [id number] : 1950 Provider: Dr. Willie Velázquez MD Age/Sex: 73/F [place] [facility] [place]: Signed Intake Vital Signs 05/29/23 18:15 04/27/24 13:48 Height 5 ft 3 in 5 ft 2 in Weight: 263 lb BMI 48.1 Intake Visit Reasons: LUMBAR SPINE Chief Complaint: lumbar spine Allergies nickel Allergy (Verified 04/27/24 13:57) Hives ibuprofen Adverse Reaction (Verified 04/27/24 13:57) Other metronidazole (From Flagyl) Adverse Reaction (Verified 04/27/24 13:57) Swelling Have you fallen in the past year?: No PFSH Medical History Peripheral venous insufficiency Osteoarthritis BPPV (benign paroxysmal positional vertigo) Overactive bladder Kidney disease History of diverticulitis Depression GERD (gastroesophageal reflux disease) HTN (hypertension) COPD (chronic obstructive pulmonary disease) Surgical History H/O: hysterectomy History of total hip replacement Social History household members: none Smoking Status: Current every day smoker tobacco type: cigarettes substance use type: does not use HPI LUMBAR SPINE Details: This documentation accurately reflects the service provided and the decisions made by me, Dr. Willie Velázquez MD 04/27/24 3971. Part of today???s visit was documented by Mary Bae RN, acting as scribe. DIANNE HOLLY is a 73 year old F here today for initial evaluation of lumbar spine pain. She reports a several year history of lumbar spine pain. She states over the last 6 months it has progr essively been getting worse. She complains of low back pain that is worse in the right side and radiates into her right leg. The pain is worse when standing and goes almost completely away with sitting. The pain keeps her awake at night and she has to sleep in a recliner because she cannot lay flat. She denies previous back surgery. She states she previously injured her back over 50 years ago while working [place] and required rest and muscle relaxers. She previously saw Dr. Golden in pain management and had injections but has not been seen since 2019. She does have a history of a right hip replacement. She starts PT next week at [facility] for her low back, this will be the first time she has done PT. Ortho Exam General General: Yes no acute distress Neurologic: Yes alert and Yes oriented x3 Spine SPINE TESTING CERVICAL THORACIC LUMBAR Musculoskeletal Strength 0=absent - 5=normal Details: Exam to the back shows midline and bilateral paraspinal tenderness. Neurologic motion of lower extremity was 5 x 5 power level shows normal sensations in all dermatomes. Both knees and ankles show hyperreflexia. Coding Level of Care Code Off vis,new,level 4 Diagnoses Lumbar radiculopathy M54.16 Other intervertebral disc degeneration, lumbar region with discogenic back pain and lower extremity pain M51.362 Osteopenia determined by x-ray M85.80 Time Spent (min) 45 Assessment and Plan Assessment and Plan (1) Lumbar radiculopathy: Status: Acute (2) Other intervertebral disc degeneration, lumbar region with discogenic back pain and lower extremity pain: Status: Acute (3) Osteopenia determined by x-ray: Status: Acute Orders: Orders L/S Spine Bending Flex/Ext Today M54.50 - Low back pain, unspecified Medications: Discontinued sennosides-docusate sodium 8.6-50 mg Discontinued Reason: Pt no longer taking 2 tabs PO BID 120 tabs 0RF hydrocodone-acetamin ophen 5-325 mg Discontinued Reason: Pt no longer taking 1 TAB PO Q4H PRN 2 days PRN 7 TABLETS 0RF Pain K57.92 - Diverticulitis of intestine, part unspecified, without perforation or abscess without bleeding amoxicillin-pot clavulanate 875-125 mg Discontinued Reason: Pt no longer taking 1 TAB PO BID 10 days 19 tabs 0RF Plan Reviewed x-rays of lumbar spine done last year and also obtained flexion-extension views today. These show multilevel disc height loss with disc degeneration without any dynamic instability. Osteopenia noticed on x-rays. Patient mentions that she has had DEXA scan recently which was normal. Requested patient to send DEXA scan report from outside facility to ask for recording. Patient has not had an MRI recently. Previous MRI was in 2017. Discussed imaging findings in detail. Patient has significant disc degeneration with associated low back pain and radicular symptoms. Discussed nonsurgical treatment options such as physical therapy and epidural injections. At this point patient is hoping to (more content not included)... Normal [facility] CNOVon 04-26-2024 CNOV Office Visit (SLEWST) ZHENG HOLLYARECandy Merida ([id number]) 1950 F Date Time Provider Department 04/26/24 1:30 PM DEONTE DOUGLAS During your visit today, we recorded the following information about you: Pulse Respiration Blood pressure Weight 78/minute 18/minute 97/61 120.2 kg Deonte Douglas APRN.HARMONIC ANALYST 04/26/2024 2:11 PM Signed [facility] Follow up/ Established patient visit Date of last visit : 09/24/2023 The following Impression/Plan was copied and pasted from the patient's last Sleep Disorders Center visit on 09/04/23: IMPRESSION: Mónica (obstructive sleep apnea) (primary encounter diagnosis) Nocturnal hypoxia Chronic obstructive pulmonary disease, unspecified copd type (hcc) Moderate smoker (20 or less per day) Dianne Holly is a 72 year old female with PMH of at least moderate MÓNICA, nocturnal hypoxia, COPD, smoker. She wants to use her autoCPAP 13-20 cmH2O with O2 bleed in 1 LPM but she notes excessive phlegm when she uses PAP. PLAN: She would like to try a traditional FFM instead of the hybrid FFM, we'll check with [employer], order written Will refer to Pulm for their opinion on COPD playing a role in her not being able to tolerate her autoCPAP. She isn't getting supplemental O2 at night when not using PAP. Deonte Douglas, DOPER.HARMONIC ANALYST Here for follow up for MÓNICA, still gets congested from APAP. Decreasing the humidity maybe helped a little bit. She uses mucinex if the congestion gets bad. Hasn't been using APAP, has been sleeping in recliner due to sciatica, APAP is by her bed (as his O2 bleed in). At last visit referred her to Pulm -- pt reports her breathing is much better on change of inhaler. She cut back on smoking, but didn't quit completely due to weight gain. SLEEP APNEA Sleep apnea type : MÓNICA, Most Recent Apnea-Hypopnea Index (AHI): 26 on HSAT in 06/2022 Treatment : PAP therapy DME: [employer] PAP History: Current PAP settin-20 cm H2O. With O2 1 LPM bleed in Reviewed objective PAP compliance data: Mask type: full face mask PATIENT-ENTERED QUESTIONNAIRE SLEEP SCORES 11/09/2016 06/15/2022 PHQ-9 Score 9 9 09/21/2016 11/09/2016 11/09/2016 PROMIS Global Health - (T-Scores - the mean of general population = 50. Five points is a clinically meaningful difference.) Physical T-Score 32.4 32.4 Mental T-Score 38.8 36.3 36.3 ALLERGIES Allergen Reactions Flagyl [Metronidazo* Itching, Other: See Comments nausea/ throat swelling Ibuprofen Vomiting Hematemesis - [facility] 06/21/2012 Nickel Rash Can only wear gold earrings CURRENT MEDICATIONS: fluticasone-umeclidi n-vilanter (TRELEGY ELLIPTA) 100-62.5-25 mcg inhalation powder Inhale 1 Puff as instructed once daily. solifenacin (VESICARE) 5 mg tablet Take 1 tablet by mouth once daily. buPROPion SR (WELLBUTRIN SR) 150 mg 12 hr tablet Take 1 tablet by mouth once daily. cyanocobalamin (VITAMIN B-12) 1,000 mcg tab Take 1 tablet by mouth once daily. lisinopril-hydroCHLO ROthiazide (ZESTORETIC) 20-12.5 mg per tablet Take 2 tablets by mouth once daily. pravastatin (PRAVACHOL) 40 mg tablet Take 1 tablet by mouth daily at bedtime. sertraline (ZOLOFT) 100 mg tablet Take 1.5 tablets by mouth every evening. verapamil SR (CALAN SR) 180 mg CR tablet Take 1.5 tablets by mouth once daily. magnesium glycinate 100 mg magnesium capsule Take 2 capsules by mouth daily at bedtime. melatonin 1 mg chew Take 1 mg by mouth at bedtime as needed for insomnia. albuterol HFA (PROVENTIL HFA, VENTOLIN HFA) 90 mcg/actuation inhaler Inhale 2 Puffs as instructed every 4 hours as needed. omeprazole (PRILOSEC) 20 mg capsule Take 1 capsule by mouth two times a day. CPAP/BIPAP/OTHER autoCPAP 13-20 cmH2O with 1.5 LPM O2 bleed in DME [employer] ondansetron orally disintegrating (ZOFRAN ODT) 4 mg disintegrating tablet Take 1 tablet by mouth every 8 hours as needed. MEDICAL SUPPLY BEDSIDE COMMODE. dx: right total hip replacement. z96.641 COMPOUNDED PRESCRIPTION Bedside Commode Dx: right total hip replacement Z96.641 PHYSICAL EXAMINATION: Vital Signs: BP 97/61 (BP Site: Left Arm, BP Position: Sitting, BP Cuff Size: Extra Large Adult) Pulse 78 Resp 18 Wt 120.2 kg (265 lb) SpO2 95% BMI 46.94 kg/m? PHYSICAL EXAM: General appearance: pleasant, NAD Mental status: alert and oriented, able to provide own history Constitutional: obese Skin: No visible rashes on exposed skin Neuro: No focal deficits observed, no tremors IMPRESSION: Obstructive sleep apnea (primary encounter diagnosis) Nocturnal hypoxia Difficulty using continuous positive airway pressure (cpap) device Dianne Holly is a 73 year old female with at least moderate MÓNICA, nocturnal hypoxia, difficulty using autoCPAP, COPD, smoker, obesity, HTN, (more content not included)... Normal [facility] CNOVon 04-10-2024 CNOV Office Visit (FAMPWS) DIANNE HOLLY ([id number]) 1950 F Date Time Provider Department 04/10/24 1:00 PM DEWAYNE CHUNG FAMPWS During your visit today, we recorded the following information about you: Pulse Respiration Blood pressure Weight 63/minute 18/minute 132/80 120.2 kg Dewayne Chung MD 04/10/2024 1:09 PM Signed Chief Complaint Patient presents with: Lesion Removal HPI Dianne Holly is a 73 year old female who presents here today for excisional lesion. has a non-resolving lesion on the right dorsal/lateral forearm near the elbow. . Patient lost 15 pounds since visit in March. Has been following low fat diet. Patient has noted that since she stopped picking at it the bump has decreased in size. Past medical history, appointments, medications, allergies reviewed. Previous Medical History PAST MEDICAL HISTORY Diagnosis Date Adenoma of left adrenal gland 12/06/2018 Seen [facility] ER CT 11/28/2018 was stable in size since CT done 11/2015: benign. ADRENAL NODULE 11/17/2007 Anxiety state 11/19/2006 Arthritis Benign neoplasm of colon BPPV (benign paroxysmal positional vertigo) 04/03/2015 Chronic left shoulder pain 09/17/2015 Class 3 severe obesity due to excess calories without serious comorbidity with body mass index (BMI) of 45.0 to 49.9 in adult ([facility]) 06/18/2014 Coronary artery calcification 09/08/[address] 08/2022 DDD (degenerative disc disease), lumbar 01/15/2016 Delayed emergence from general anesthesia Diverticulitis of large intestine without perforation or abscess without bleeding 06/03/2016 Elevated blood sugar 08/07/2023 Elevated hemoglobin A1c 08/07/2023 Emphysema of lung ([facility]) 06/18/2014 Encounter for Medicare annual wellness exam 11/23/2017 Medicare Part B: 11/29/2016 last done: 08/11/2023 Essential hypertension 11/19/2006 Family history of early CAD 09/08/2022 Brother at age 47 Gastroesophageal reflux disease without esophagitis 11/19/2006 Generalized osteoarthrosis, unspecified site 11/19/2006 Internal hemorrhoids Lumbar disc herniation 02/16/2024 MRI 08/2016: at L5-S1 and L2-L3 Medicare annual wellness visit, initial 11/23/2017 Medicare Part B: 11/29/2016 last done: 11/16/2018 Mixed hyperlipidemia 03/19/2008 Moderate obstructive sleep apnea 08/03/2022 Consult sleep med 07/2022 Osteoarthritis of lumbar spine 01/15/2016 Osteoarthritis of multiple joints 11/19/2006 Overactive bladder 01/16/2019 Primary osteoarthritis of right hip 09/21/2016 Primary ovarian failure 11/23/2017 Recurrent major depressive disorder, in remission ([facility]) 11/23/2017 Smoker 05/27/2010 Stage 3a chronic kidney disease ([facility]) 08/11/2023 Status post right hip replacement 10/01/2017 Venous [...] SINGLE/MULTIPLE 04/01/2009 EGD TRANSORAL BIOPSY SINGLE/MULTIPLE 06/22/[address] [facility] [address] Marroquin FRACTURE SURGERY JOINT REPLACEMENT [...] nausea/ throat swelling Ibuprofen Vomiting Hematemesis - [facility] 06/21/2012 Nickel Rash Can only wear gold earrings Current Medications Current Outpatient Medications on File Prior to Visit Medication Sig buPROPion SR (WELLBUTRIN SR) 150 mg 12 hr tablet Take 1 tablet by mouth once daily. cyanocobalamin (VITAMIN B-12) 1,000 mcg tab Take 1 tablet by mouth once daily. lisinopril-hydroCHLO ROthiazide (ZESTORETIC) 20-12.5 mg per tablet Take 2 tablets by mouth once daily. pravastatin (PRAVACHOL (more content not included)... Normal [facility] CN Office Visit (PULMWS) DIANNE HOLLY ([id number]) 1950 F Date Time Provider Department 04/10/24 11:45 AM NAOMY PARKER PULMWS During your visit today, we recorded the following information about you: Pulse Respiration Blood pressure Weight 102/minute 18/minute 124/80 120.2 kg Naomy Parker MD 04/10/2024 12:08 PM Signed . Respiratory [facility] Note Patient name: Dianne Holly PCP: Dewayne Chung MD CC: Follow-up COPD HPI: Dianne Holly 73 year old female current 45 pack year smoker with PMH significant for morbid obesity, HTN, HLD, MÓNICA, CKD, GERD recently sent by sleep medicine for evaluation of nocturnal breathing issues interfering with use of her CPAP. At initial visit, instituted treatment for her COPD and GERD: Trelegy Ellipta, restarted PPI, recommended smoking cessation and weight loss. Since starting on the Trelegy, she states she has been doing much better. She has less days when she is so short of breath climbing stairs that she has to stop and rest. She has no chronic cough and no audible wheezing. She has been able to wear her CPAP for 4 hours per night. The proton pump inhibitor has helped her acid reflux symptoms as well. She has not recently been ill with any upper respiratory infection nor required hospitalization for her COPD. She has been trying to lose weight by low-fat diet and has lost 15 pounds since her last visit. She is trying to quit smoking, currently down to 5 cigarettes/day. Testing for allergy with IgE level was normal. PAST MEDICAL HISTORY Diagnosis Date Adenoma of left adrenal gland 12/06/2018 Seen [facility] ER CT 11/28/2018 was stable in [...] without perforation or abscess without bleeding 06/03/2016 Elevated blood sugar 08/07/2023 Elevated hemoglobin A1c 08/07/2023 Emphysema of lung (HCC) 06/18/2014 Encounter for Medicare annual wellness exam 11/23/2017 Medicare Part B: 11/29/2016 last done: 08/11/2023 Essential hypertension 11/19/2006 Family history of early CAD 09/08/2022 Brother at age 47 Gastroesophageal reflux disease without esophagitis 11/19/2006 Generalized osteoarthrosis, unspecified site 11/19/2006 Internal hemorrhoids Lumbar disc herniation 02/16/2024 MRI 08/2016: at L5-S1 and L2-L3 Medicare annual wellness visit, initial 11/23/2017 Medicare Part B: 11/29/2016 last done: 11/16/2018 Mixed hyperlipidemia 03/19/2008 Moderate obstructive sleep apnea 08/03/2022 Consult sleep med 07/2022 Osteoarthritis of lumbar spine 01/15/2016 Osteoarthritis of multiple joints 11/19/2006 Overactive bladder 01/16/2019 Primary osteoarthritis of right hip 09/21/2016 Primary ovarian failure 11/23/2017 Recurrent major depressive disorder, in remission (HCC) 11/23/2017 Smoker 05/27/2010 Stage 3a chronic kidney disease (HCC) 08/11/2023 Status post right hip replacement 10/01/2017 Venous insufficiency (chronic) (peripheral) 10/16/2014 Vertigo 06/14/2017 Vitamin B12 deficiency 05/26/2021 ALLERGIES Allergen Reactions Flagyl [Metronidazo* Itching, Other: See Comments nausea/ throat swelling Ibuprofen Vomiting Hematemesis - [facility] 06/21/2012 Nickel Rash Can only wear gold earrings buPROPion SR (WELLBUTRIN SR) 150 mg 12 hr tablet Take 1 tablet by mouth once daily. omeprazole (PRILOSEC) 20 mg capsule Take 1 capsule by mouth two times a day. fluticasone-umeclidi n-vilanter (TRELEGY ELLIPTA) 100-62.5-25 mcg inhalation powder Inhale 1 Puff as instructed once daily. cyanocobalamin (VITAMIN B-12) 1,000 mcg tab Take 1 tablet by mouth once daily. lisinopril-hydroCHLO ROthiazide (ZESTORETIC) 20-12.5 mg per tablet Take 2 tablets by mouth once daily. pravastatin (PRAVACHOL) 40 mg tablet Take 1 tablet by mouth daily at bedtime. sertraline (ZOLOFT) 100 mg tablet Take 1.5 tablets by mouth every evening. verapamil SR (CALAN SR) 180 mg CR tablet Take 1.5 tablets by mouth once daily. magnesium glycinate 100 mg magnesium capsule Take 2 capsules by mouth daily at bedtime. melatonin 1 mg chew Take 1 mg by mouth at bedtime as needed for insomnia. albuterol HFA (PROVENTIL HFA, VENTOLIN HFA) 90 mcg/actuation inhaler Inhale 2 Puffs as instructed every 4 hours as needed. solifenacin (VESICARE) 5 mg tablet Take 1 tablet by mouth once daily. CPAP/BIPAP/OTHER autoCPAP 13-20 cmH2O wit (more content not included)... Normal [facility] CNOVon 03-17-2024 CNOV Office Visit (FAMPWS) AVNIMARIECandy Merida ([id number]) 1950 F Date Time Provider Department 03/17/24 1:40 PM ALLIE LEMUSWS During your visit today, we recorded the following information about you: Pulse Respiration Blood pressure Weight 79/minute 18/minute 132/73 124.3 kg Allie Lemus APRN.HARMONIC ANALYST 03/17/2024 2:00 PM Signed Chief Complaint Patient presents with: Follow Up HPI Dianne Holly is a 73 year old female who presents here today for Above Complaints.. Patient presents for routine follow up. Past medical history, appointments, medications, allergies reviewed. Previous Medical History PAST MEDICAL HISTORY Diagnosis Date Adenoma of left adrenal gland 12/06/2018 Seen [facility] ER CT 11/28/2018 was stable in size since CT done 11/2015: benign. ADRENAL NODULE 11/17/2007 Anxiety state 11/19/2006 Arthritis Benign neoplasm of colon BPPV (benign paroxysmal positional vertigo) 04/03/2015 Chronic left shoulder pain 09/17/2015 Class 3 severe obesity due to excess calories without serious comorbidity with body mass index (BMI) of 45.0 to 49.9 in adult ([facility]) 06/18/2014 Coronary artery calcification 09/08/[address] 08/2022 DDD (degenerative disc disease), lumbar 01/15/2016 Delayed emergence from general anesthesia Diverticulitis of large intestine without perforation or abscess without bleeding 06/03/2016 Elevated blood sugar 08/07/2023 Elevated hemoglobin A1c 08/07/2023 Emphysema of lung ([facility]) 06/18/2014 Encounter for Medicare annual wellness exam 11/23/2017 Medicare Part B: 11/29/2016 last done: 08/11/2023 Essential hypertension 11/19/2006 Family history of early CAD 09/08/2022 Brother at age 47 Gastroesophageal reflux disease without esophagitis 11/19/2006 Generalized osteoarthrosis, unspecified site 11/19/2006 Internal hemorrhoids Lumbar disc herniation 02/16/2024 MRI 08/2016: at L5-S1 and L2-L3 Medicare annual wellness visit, initial 11/23/2017 Medicare Part B: 11/29/2016 last done: 11/16/2018 Mixed hyperlipidemia 03/19/2008 Moderate obstructive sleep apnea 08/03/2022 Consult sleep med 07/2022 Osteoarthritis of lumbar spine 01/15/2016 Osteoarthritis of multiple joints 11/19/2006 Overactive bladder 01/16/2019 Primary osteoarthritis of right hip 09/21/2016 Primary ovarian failure 11/23/2017 Recurrent major depressive disorder, in remission (HCC) 11/23/2017 Smoker 05/27/2010 Stage 3a chronic kidney disease (HCC) 08/11/2023 Status post right hip replacement 10/01/2017 Venous [...] SINGLE/MULTIPLE 04/01/2009 EGD TRANSORAL BIOPSY SINGLE/MULTIPLE 06/22/[address] [facility] [address] Marroquin FRACTURE SURGERY JOINT REPLACEMENT [...] nausea/ throat swelling Ibuprofen Vomiting Hematemesis - [facility] 06/21/2012 Nickel Rash Can only wear gold earrings Current Medications Current Outpatient Medications on File Prior to Visit Medication Sig buPROPion SR (WELLBUTRIN SR) 150 mg 12 hr tablet Take 1 tablet by mouth once daily. cyanocobalamin (VITAMIN B-12) 1,000 mcg tab Take 1 tablet by mouth once daily. lisinopril-hydroCHLO ROthiazide (ZESTORETIC) 20-12.5 mg per tablet Take 2 tablets by mouth once daily. pravastatin (PRAVACHOL) 40 mg tablet Take 1 tablet by mouth daily at bedtime. sertraline (ZOLOFT) 100 mg tablet Take 1.5 tablets by mouth every evening. verapamil SR (CALAN SR) 180 mg CR tablet Take 1.5 tablets by mouth once daily. mag (more content not included)... [facility] ([id number]) 1950 F Date Time Provider Department 03/15/24 CARL BRYANT [facility] During your visit today, we recorded the following information about you: Carl Bryant MA 03/15/2024 2:53 PM Signed Patient is scheduled for 03/31/2024 for excisional biopsy. PLEASE RESCHEDULE and make this a [address] Chung. OSWALDO Leone Roxanne, MA 03/17/2024 2:51 PM Signed Patient rescheduled. Carl Bryant MA Allergies As of Date: 03/15/2024 Noted Allergy Reaction FLAGYL (METRONIDAZOLE HCL) 01/29/2009 9 - Itching 14 - Other: See Comments Comments: nausea/ throat swelling IBUPROFEN 07/04/2012 11 - Vomiting Comments: Hematemesis - [facility] 06/21/2012 NICKEL 11/10/2016 2 - Rash Comments: Can only wear gold earrings Date Reviewed: 03/09/2024 Reviewed by: Dewayne Chung MD - Fully Assessed Reason for Visit: Appointment [186] Prescriptions as of 03/17/2024 - buPROPion SR (WELLBUTRIN SR) 150 mg 12 hr tablet Take 1 tablet by mouth once daily. - cyanocobalamin (VITAMIN B-12) 1,000 mcg tab Take 1 tablet by mouth once daily. - lisinopril-hydroCHLO ROthiazide (ZESTORETIC) 20-12.5 mg per tablet Take 2 tablets by mouth once daily. - pravastatin (PRAVACHOL) 40 mg tablet Take 1 tablet by mouth daily at bedtime. - sertraline (ZOLOFT) 100 mg tablet Take 1.5 tablets by mouth every evening. - verapamil SR (CALAN SR) 180 mg CR tablet Take 1.5 tablets by mouth once daily. - magnesium glycinate 100 mg magnesium capsule Take 2 capsules by mouth daily at bedtime. - melatonin 1 mg chew Take 1 mg by mouth at bedtime as needed for insomnia. - fluticasone-umeclidi n-vilanter (TRELEGY ELLIPTA) 100-62.5-25 mcg inhalation powder Inhale 1 Puff as instructed once daily. - albuterol HFA (PROVENTIL HFA, VENTOLIN HFA) 90 mcg/actuation inhaler Inhale 2 Puffs as instructed every 4 hours as needed. - omeprazole (PRILOSEC) 20 mg capsule Take 1 capsule by mouth two times a day. - solifenacin (VESICARE) 5 mg tablet Take 1 tablet by mouth once daily. - CPAP/BIPAP/OTHER autoCPAP 13-20 cmH2O with 1.5 LPM O2 bleed in [facility] - ondansetron orally disintegrating (ZOFRAN ODT) 4 mg disintegrating tablet Take 1 tablet by mouth every 8 hours as needed. - MEDICAL SUPPLY BEDSIDE COMMODE. dx: right total hip replacement. z96.641 - COMPOUNDED PRESCRIPTION Bedside Commode Dx: right total hip replacement Z96.641 Problem List As Of Date 03/15/2024 Noted Resolved Gastroesophageal reflux disease without esophag*11/19/2006 [...] [M47.816] 01/15/2016 DDD (degenerative disc disease), lumbar [M51.36*01/15/2016 Diverticulitis of large intestine without perfo*06/03/2016 07/28/2017 Primary osteoarthritis of right hip [M16.11] 09/21/2016 Chronic midline low back pain without sciatica *11/09/2016 07/28/2017 CKD (chronic kidney disease) stage 3, GFR 30-59*03/12/2017 07/28/2017 Vertigo [R42] 06/14/2017 Osteoarthritis of right hip [M16.11] 06/23/2017 06/25/2017 Encounter for Medicare annual wellness exam [Z0*11/23/2017 Screening for osteoporosis [Z13.820] 11/23/2017 Primary ovarian failure [E28.39] 11/23/2017 Encounter for screening mammogram for breast ca*11/23/2017 Recurrent major depressive disorder, in remissi*11/23/2017 Current use of proton pump inhibitor [Z79.899] 11/23/2017 06/15/2022 BPPV (benign paroxysmal positional vertigo) [H8*04/03/2015 Diverticulitis of large intestine without perfo*06/03/2016 Internal hemorrhoids [K64.8] Adenoma of left adrenal gland [D35.02] 12/06/2018 Overactive bladder [N32.81] 1 (more content not included)... Normal [facility] 03-13-2024 [facility] DIANNE HOLLY ([id number]) 1950 F Date Time Provider Department 03/13/24 [facility] CHUNG [facility] During your visit today, we recorded the following information about you: Nettie Simms, RN 03/13/2024 11:46 AM Signed Pt called in and reports provider had referred her to Dr Velázquez for her spine, but she had lost the phone number for him. I gave her the general number for [facility] [phone] and told her to ask the optical effects camera operator to put her through to Dr Velázquez's office. Allergies As of Date: 03/13/2024 Noted Allergy Reaction FLAGYL (METRONIDAZOLE HCL) 01/29/2009 9 - Itching 14 - Other: See Comments Comments: nausea/ throat swelling IBUPROFEN 07/04/2012 11 - Vomiting Comments: Hematemesis - [facility] 06/21/2012 NICKEL 11/10/2016 2 - Rash Comments: Can only wear gold earrings Date Reviewed: 03/09/2024 Reviewed by: Dewayne Chung MD - Fully Assessed Reason for Visit: Patient Question [1477] Prescriptions as of 03/13/2024 - buPROPion SR (WELLBUTRIN SR) 150 mg 12 hr tablet Take 1 tablet by mouth once daily. - cyanocobalamin (VITAMIN B-12) 1,000 mcg tab Take 1 tablet by mouth once daily. - lisinopril-hydroCHLO ROthiazide (ZESTORETIC) 20-12.5 mg per tablet Take 2 tablets by mouth once daily. - pravastatin (PRAVACHOL) 40 mg tablet Take 1 tablet by mouth daily at bedtime. - sertraline (ZOLOFT) 100 mg tablet Take 1.5 tablets by mouth every evening. - verapamil SR (CALAN SR) 180 mg CR tablet Take 1.5 tablets by mouth once daily. - magnesium glycinate 100 mg magnesium capsule Take 2 capsules by mouth daily at bedtime. - melatonin 1 mg chew Take 1 mg by mouth at bedtime as needed for insomnia. - fluticasone-umeclidi n-vilanter (TRELEGY ELLIPTA) 100-62.5-25 mcg inhalation powder Inhale 1 Puff as instructed once daily. - albuterol HFA (PROVENTIL HFA, VENTOLIN HFA) 90 mcg/actuation inhaler Inhale 2 Puffs as instructed every 4 hours as needed. - omeprazole (PRILOSEC) 20 mg capsule Take 1 capsule by mouth two times a day. - solifenacin (VESICARE) 5 mg tablet Take 1 tablet by mouth once daily. - CPAP/BIPAP/OTHER autoCPAP 13-20 cmH2O with 1.5 LPM O2 bleed in [facility] - triamcinolone acetonide (KENALOG) 0.1 % cream Apply 1 application to affected area three times a day. Apply sparingly to area for rash/itching. - ondansetron orally disintegrating (ZOFRAN ODT) 4 mg disintegrating tablet Take 1 tablet by mouth every 8 hours as needed. - MEDICAL SUPPLY BEDSIDE COMMODE. dx: right total hip replacement. z96.641 - COMPOUNDED PRESCRIPTION Bedside Commode Dx: right total hip replacement Z96.641 Problem List As Of Date 03/13/2024 Noted Resolved Gastroesophageal reflux disease without esophag*11/19/2006 [...] [M47.816] 01/15/2016 DDD (degenerative disc disease), lumbar [M51.36*01/15/2016 Diverticulitis of large intestine without perfo*06/03/2016 07/28/2017 Primary osteoarthritis of right hip [M16.11] 09/21/2016 Chronic midline low back pain without sciatica *11/09/2016 07/28/2017 CKD (chronic kidney disease) stage 3, GFR 30-59*03/12/2017 07/28/2017 Vertigo [R42] 06/14/2017 Osteoarthritis of right hip [M16.11] 06/23/2017 06/25/2017 Encounter for Medicare annual wellness exam [Z0*11/23/2017 Screening for osteoporosis [Z13.820] 11/23/2017 Primary ovarian failure [E28.39] 11/23/2017 Encounter for screening mammogram for breast ca*11/23/2017 Recurrent major depressive disorder, in remissi*11/23/2017 Current use of proton pump inhibitor [Z79.899] 11/23/2017 06/15/2022 BPPV (benign paroxysmal positional vertigo) [H8*04/03/2015 (more content not included)... Normal [facility] CNOVon 03-09-2024 CNOV Office Visit (FAMPWS) DIANNE HOLLY ([id number]) 1950 F Date Time Provider Department 03/09/24 1:00 PM DEWAYNE CHUNG FAMPWS During your visit today, we recorded the following information about you: Pulse Blood pressure Weight Height 78/minute 142/76 127 kg 1.6 m Dewayne Chung MD 03/10/2024 12:41 PM Signed Chief Complaint Patient presents with: Trigger Finger HPI Dianne Magnolia Holly is a 73 year old female who presents here today for Trigger finger. Right hand trigger fingers - ring/middle will lock and the ring finger will hurt trying to get it to unlock. Started a few months ago. Past medical history, appointments, medications, allergies reviewed. Previous Medical History PAST MEDICAL HISTORY Diagnosis Date Adenoma of left adrenal gland 12/06/2018 Seen [facility] ER CT 11/28/2018 was stable in size since CT done 11/2015: benign. ADRENAL NODULE 11/17/2007 Anxiety state 11/19/2006 Arthritis Benign neoplasm of colon BPPV (benign paroxysmal positional vertigo) 04/03/2015 Chronic left shoulder pain 09/17/2015 Class 3 severe obesity due to excess calories without serious comorbidity with body mass index (BMI) of 45.0 to 49.9 in adult ([facility]) 06/18/2014 Coronary artery calcification 09/08/[address] 08/2022 DDD (degenerative disc disease), lumbar 01/15/2016 Delayed emergence from general anesthesia Diverticulitis of large intestine without perforation or abscess without bleeding 06/03/2016 Elevated blood sugar 08/07/2023 Elevated hemoglobin A1c 08/07/2023 Emphysema of lung ([facility]) 06/18/2014 Encounter for Medicare annual wellness exam 11/23/2017 Medicare Part B: 11/29/2016 last done: 08/11/2023 Essential hypertension 11/19/2006 Family history of early CAD 09/08/2022 Brother at age 47 Gastroesophageal reflux disease without esophagitis 11/19/2006 Generalized osteoarthrosis, unspecified site 11/19/2006 Internal hemorrhoids Lumbar disc herniation 02/16/2024 MRI 08/2016: at L5-S1 and L2-L3 Medicare annual wellness visit, initial 11/23/2017 Medicare Part B: 11/29/2016 last done: 11/16/2018 Mixed hyperlipidemia 03/19/2008 Moderate obstructive sleep apnea 08/03/2022 Consult sleep med 07/2022 Osteoarthritis of lumbar spine 01/15/2016 Osteoarthritis of multiple joints 11/19/2006 Overactive bladder 01/16/2019 Primary osteoarthritis of right hip 09/21/2016 Primary ovarian failure 11/23/2017 Recurrent major depressive disorder, in remission ([facility]) 11/23/2017 Smoker 05/27/2010 Stage 3a chronic kidney disease (HCC) 08/11/2023 Status post right hip replacement 10/01/2017 Venous [...] SINGLE/MULTIPLE 04/01/2009 EGD TRANSORAL BIOPSY SINGLE/MULTIPLE 06/22/[address] [facility] [address] Marroquin FRACTURE SURGERY JOINT REPLACEMENT [...] nausea/ throat swelling Ibuprofen Vomiting Hematemesis - [facility] 06/21/2012 Nickel Rash Can only wear gold earrings Current Medications Current Outpatient Medications on File Prior to Visit Medication Sig buPROPion SR (WELLBUTRIN SR) 150 mg 12 hr tablet Take 1 tablet by mouth once daily. cyanocobalamin (VITAMIN B-12) 1,000 mcg tab Take 1 tablet by mouth once daily. lisinopril-hydroCHLO ROthiazide (ZESTORETIC) 20-12.5 mg per tablet Take 2 tablets by mouth once daily. pravastatin (PRAVACHOL) 40 mg tablet Take 1 tablet by mouth daily at bedtime. sertraline (ZOLOFT) 100 mg tablet Take 1.5 tablets by mouth every evening. (more content not included)... Normal [facility] 02-21-2024 [facility] Telephone (FAMPWS) DIANNE HOLLY ([id number]) 1950 F Date Time Provider Department 02/21/24 ALLIE LEMUS During your visit today, we recorded the following information about you: Allie Lemus APRN.HARMONIC ANALYST 02/21/2024 8:36 AM Signed Please let patient know her mammogram is negative. Patient should continue with annual screenings. Lucina Broderick MA 02/21/2024 8:50 AM Signed Left message for patient to return call to office OSWALDO Catherine Stephanie, RN 02/21/2024 8:56 AM Signed Patient notified of results and provider's instructions. Patient verbalizes understanding. Gloria Caldwell RN Allergies As of Date: 02/21/2024 Noted Allergy Reaction FLAGYL (METRONIDAZOLE HCL) 01/29/2009 9 - Itching 14 - Other: See Comments Comments: nausea/ throat swelling IBUPROFEN 07/04/2012 11 - Vomiting Comments: Hematemesis - [facility] 06/21/2012 NICKEL 11/10/2016 2 - Rash Comments: Can only wear gold earrings Date Reviewed: 02/16/2024 Reviewed by: Dewayne Chung MD - Fully Assessed Reason for Visit: Results [95] Prescriptions as of 02/21/2024 - buPROPion SR (WELLBUTRIN SR) 150 mg 12 hr tablet Take 1 tablet by mouth once daily. - cyanocobalamin (VITAMIN B-12) 1,000 mcg tab Take 1 tablet by mouth once daily. - lisinopril-hydroCHLO ROthiazide (ZESTORETIC) 20-12.5 mg per tablet Take 2 tablets by mouth once daily. - pravastatin (PRAVACHOL) 40 mg tablet Take 1 tablet by mouth daily at bedtime. - sertraline (ZOLOFT) 100 mg tablet Take 1.5 tablets by mouth every evening. - verapamil SR (CALAN SR) 180 mg CR tablet Take 1.5 tablets by mouth once daily. - magnesium glycinate 100 mg magnesium capsule Take 2 capsules by mouth daily at bedtime. - melatonin 1 mg chew Take 1 mg by mouth at bedtime as needed for insomnia. - fluticasone-umeclidi n-vilanter (TRELEGY ELLIPTA) 100-62.5-25 mcg inhalation powder Inhale 1 Puff as instructed once daily. - albuterol HFA (PROVENTIL HFA, VENTOLIN HFA) 90 mcg/actuation inhaler Inhale 2 Puffs as instructed every 4 hours as needed. - omeprazole (PRILOSEC) 20 mg capsule Take 1 capsule by mouth two times a day. - solifenacin (VESICARE) 5 mg tablet Take 1 tablet by mouth once daily. - CPAP/BIPAP/OTHER autoCPAP 13-20 cmH2O with 1.5 LPM O2 bleed in D[employer] - triamcinolone acetonide (KENALOG) 0.1 % cream Apply 1 application to affected area three times a day. Apply sparingly to area for rash/itching. - ondansetron orally disintegrating (ZOFRAN ODT) 4 mg disintegrating tablet Take 1 tablet by mouth every 8 hours as needed. - MEDICAL SUPPLY BEDSIDE COMMODE. dx: right total hip replacement. z96.641 - COMPOUNDED PRESCRIPTION Bedside Commode Dx: right total hip replacement Z96.641 Problem List As Of Date 02/21/2024 Noted Resolved Gastroesophageal reflux disease without esophag*11/19/2006 [...] [M47.816] 01/15/2016 DDD (degenerative disc disease), lumbar [M51.36*01/15/2016 Diverticulitis of large intestine without perfo*06/03/2016 07/28/2017 Primary osteoarthritis of right hip [M16.11] 09/21/2016 Chronic midline low back pain without sciatica *11/09/2016 07/28/2017 CKD (chronic kidney disease) stage 3, GFR 30-59*03/12/2017 07/28/2017 Vertigo [R42] 06/14/2017 Osteoarthritis of right hip [M16.11] 06/23/2017 06/25/2017 Encounter for Medicare annual wellness exam [Z0*11/23/2017 Screening for osteoporosis [Z13.820] 11/23/2017 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 Normal [facility] YULIA SCREENING W TOMOon 02-17 YULIA SCREENING W VASQUEZ * * *Final Report* * * DATE OF EXAM: Feb 18 2024 1:01PM PARVIZ [id number] - YULIA SCREENING W VASQUEZ / PROCEDURE REASON: Encounter for screening mammogram for breast cancer * * * * Physician Interpretation * * * * RESULT: [place] [address] [place] [id number] #[id number] - YULIA SCREENING W VASQUEZ HISTORY: Patient is 73 years old and is seen for screening and is asymptomatic in both breasts. Patient states no personal history of breast cancer. Patient states no personal history of other cancers. COMPARISON STUDIES: The present examination has been compared to prior imaging studies dated 04/25/2015 (mammogram), 11/23/2018 (mammogram) and 02/11/2021 (mammogram). MAMMOGRAM TECHNIQUE: The study was acquired using full field digital technology and interpreted from soft copy. Digital Breast Tomosynthesis (DBT) images were obtained and used to assist in the interpretation of this examination. Computer-aided detection was utilized by the radiologist in the interpretation of this examination. MAMMOGRAM FINDINGS: The breasts are almost entirely fatty. No suspicious masses, calcifications or other abnormalities are seen in either breast. There are no significant interval changes. IMPRESSION: There is no mammographic evidence of malignancy in either breast. Routine screening mammogram is recommended. Annual mammogram will be due in 1 year. BI-RADS Category 1: Negative RISK: Based on the Tyrer-Cuzick (TC) risk assessment model, this patient has a 4.2% lifetime risk of developing breast cancer, meaning they are at average risk for developing breast cancer. However, this is only an estimate based on available history provided on the patient's questionnaire. We encourage all patients to talk with their providers about these results, further recommendations for managing breast health, and appropriate supplemental screening options if the patient has dense breast tissue. Interpreting Radiologist: Haylie Rose M.D. Electronically signed on: 02/21/2024 Crisis Therapist: ADNDRE Transcribe Date/Time: Feb 18 2024 12:45P Dictated by: HAYLIE ROSE MD This examination was interpreted and the report reviewed and electronically signed by: HAYLIE ROSE MD on Feb 21 2024 8:13AM EST [id number] CN Normal [facility] Basic metabolic 2000 panelon 02-16-2024 Anion gap [Moles/Vol] 16 mmol/L High 8-15 [facility] Comment on above: Order Comment: Speci men Type: BLOOD SPECIMENOrdering Facility: [facility] Address: [address] [place] [address] Performed By: #### L [facility], 64581-6 ####[facility] LABCLIA [id number] [place] [address] [place] Calcium [Mass/Vol] 10.0 mg/dL Normal 8.5-10.2 [facility] Comment on above: Order Comment: Speci men Type: BLOOD SPECIMENOrdering Facility: [facility] Address: [address] [place] [address] Performed By: #### L IPNF, 89056-2 ####[facility] LABCLIA [id number] [place] [address] [place] Chloride [Moles/Vol] 101 mmol/L Normal 98-107 [facility] Comment on above: Order Comment: Speci men Type: BLOOD SPECIMENOrdering Facility: [facility] Address: [address] [place] [address] Performed By: #### L IPNF, 29656-5 ####[facility] LABCLIA [id number] [place] [address] [place] CO2 [Moles/Vol] 24 mmol/L Normal 22-30 [facility] Comment on above: Order Comment: Speci men Type: BLOOD SPECIMENOrdering Facility: [facility] Address: [address] [place] [address] Performed By: #### L IPNF, 10318-3 ####[facility] LABCLIA [id number] [place] [address] [place] Creatinine [Mass/Vol] 1.23 mg/dL High 0.58-0.96 [facility] Comment on above: Order Comment: Speci men Type: BLOOD SPECIMENOrdering Facility: [facility] Address: [address] [place] [address] Performed By: #### L IPNF, 61665-3 ####[facility] LABCLIA [id number] [place] [address] [place] Creatinine and Glomerular filtration rate.predicted panel (S/P/Bld) 47 mL/min/1.73m??? Low >=60 [facility] Comment on above: Order Comment: Barry ivey Type: BLOOD SPECIMENOrdering Facility: [facility] Address: [address] [place] [address] Result Comment: Connie mated Glomerular Filtration Rate (eGFR) is calculated using the 2020 CKD-EPI creatinine equation. This equation utilizes serum creatinine, sex, and age as parameters. The creatinine assay has traceable calibration to isotope dilution-mass spectrometry. Refer to KDIGO guidelines for clinical interpretation. In patients with unstable renal function, e.g. those with acute kidney injury, the eGFR may not accurately reflect actual GFR. Performed By: #### L CARLEE, 55741-3 ####[facility] LABIA [id number] [place] [address] [place] Glucose [Mass/Vol] 104 mg/dL High 74-99 [facility] Comment on above: Order Comment: Barry ivey Type: BLOOD SPECIMENOrdering Facility: [facility] Address: [address] [place] [address] Result Comment: The [place] Diabetes Association (ADA) provides guidance for cutoff values for fasting glucose and random glucose. The ADA defines fasting as no caloric intake for at least 8 hours. Fasting plasma glucose results between 100 to 125 mg/dL indicate increased risk for diabetes (prediabetes). Fasting plasma glucose results greater than or equal to 126 mg/dL meet the criteria for diagnosis of diabetes. In the absence of unequivocal hyperglycemia, results should be confirmed by repeat testing. In a patient with classic symptoms of hyperglycemia or hyperglycemic crisis, random plasma glucose results greater than or equal to 200 mg/dL meet the criteria for diagnosis of diabetes. Reference: Standards of Medical Care in Diabetes 2016, [place] Diabetes Association. Diabetes Care. 2016.39(Suppl 1). Performed By: #### L CARLEE, 65151-1 ####[facility] LABIA [id number] [place] [address] [place] Potassium [Moles/Vol] 4.4 mmol/L Normal 3.7-5.1 [facility] Comment on above: Order Comment: Speci men Type: BLOOD SPECIMENOrdering Facility: [facility] Address: [address] [place] [address] Performed By: #### L IPNF, 97615-2 ####[facility] LABCLIA [id number] [place] [address] [place] Sodium [Moles/Vol] 141 mmol/L Normal 136-144 [facility] Comment on above: Order Comment: Speci men Type: BLOOD SPECIMENOrdering Facility: [facility] Address: [address] [place] [address] Performed By: #### L IPNF, 26692-9 ####[facility] LABCLIA [id number] [place] [address] [place] Urea nitrogen [Mass/Vol] 27 mg/dL High 7-21 [facility] Comment on above: Order Comment: Speci men Type: BLOOD SPECIMENOrdering Facility: [facility] Address: [address] [place] [address] Performed By: #### L IPNF, 87435-6 ####[facility] LABCLIA [id number] [address] [place] CNOVon 02-16-2024 CNOV Office Visit (FAMPWS) DIANNE HOLLY ([id number]) 1950 F Date Time Provider Department 02/16/24 1:20 PM DEWAYNE CHUNG FAMPWS During your visit today, we recorded the following information about you: Pulse Respiration Blood pressure Weight 70/minute 18/minute 132/80 123.8 kg Dewayne Chung MD 02/16/2024 3:32 PM Signed Chief Complaint Patient presents with: F/U 6 months HPI Dianne Holly is a 73 year old female who presents here today for 6 month follow up. Patient with hx of HTN, hyperlipidemia, COPD, Depression, GERD, obesity, smoker, BPPV, OA, DDD, OAB, b12 def, and those as below. Patient indicated that she has raised spot on her right lower arm bout a month ago: not painful or itchy. Thinks she may have one on the side of her left foot, not tender. Patient also having issues with lower back/right hip sciatica. Sitting is ok and in fact has relief with walking has some discomfort in her back. If standing still she will have pain in the lower back that radiates into the right lower leg. No numbness or weakness. No saddle anesthesia. No difficulty staring urination and no loss of fecal control. Had a MRI and 2016 and was told by her pain management provider Dr. Golden at the time she has a bad lower back and will need surgery at some point. Right hand trigger fingers - ring/middle will lock and the rig finger will hurt trying to get it to unlock. Started a few months ago. Patient Neur/sleep for MÓNICA last visit 08/2023 Patient sees Pulmonary last visit 12/16/2023 Past medical history, appointments, medications, allergies reviewed. Previous Medical History PAST MEDICAL HISTORY Diagnosis Date Adenoma of left adrenal gland 12/06/2018 Seen [facility] ER CT 11/28/2018 was stable in [...] without perforation or abscess without bleeding 06/03/2016 Elevated blood sugar 08/07/2023 Elevated hemoglobin A1c 08/07/2023 Emphysema of lung (HCC) 06/18/2014 Encounter for Medicare annual wellness exam 11/23/2017 Medicare Part B: 11/29/2016 last done: 08/11/2023 Essential hypertension 11/19/2006 Family history of early [...] disorder, in remission (HCC) 11/23/2017 Smoker 05/27/2010 Stage 3a chronic kidney disease (HCC) 08/11/2023 Status post right hip replacement 10/01/2017 Venous [...] SINGLE/MULTIPLE 04/01/2009 EGD TRANSORAL BIOPSY SINGLE/MULTIPLE 06/22/[address] [facility] [address] Marroquin FRACTURE SURGERY JOINT REPLACEMENT [...] Sister amyloidosis other (obese) Brother Coronary Artery Dis (more content not included)... Normal [facility] HbA1c (Bld)on 02-16-2024 Average glucose Estimated from glycated hemoglobin (Bld) [Mass/Vol] 117 mg/dL Normal [facility] Comment on above: Order Comment: Barry ivey Type: BLOOD SPECIMENOrdering Facility: [facility] Address: [address] [place] [address] Result Comment: eAG: (Estimated average glucose) is a calculated value from HgbA1c and is automobile rental representative of the average blood glucose level in the last 2-3 month period. Performed By: #### 5 5454-3 ####[facility] LABIA [id number] [place] [address] [place] HbA1c (Bld) [Mass fraction] 5.7 % High 4.3-5.6 [facility] Comment on above: Order Comment: Barry ivey Type: BLOOD SPECIMENOrdering Facility: [facility] Address: [address] [place] [address] Result Comment: [place] Diabetes Association guidelines indicate that patients with HgbA1c in the range 5.7-6.4% are at increased risk for development of diabetes, and intervention by lifestyle modification may be beneficial. HgbA1c greater or equal to 6.5% is considered diagnostic of diabetes. Performed By: #### 5 5454-3 ####[facility] LABIA [id number] [place] [address] [place] IgE SerPl-aCncon 02-16-2024 IgE Qn 21.0 kU/l Normal <114.0 [facility] Comment on above: Order Comment: Barry ivey Type: BLOOD SPECIMENOrdering Facility: [facility] Address: [address] [place] [address] Performed By: #### 1 9113-0 ####[facility] LABIA [id number] [place] [address] [place] LIPID PANEL, NONFASTINGon Cholesterol [Mass/Vol] 173 mg/dL Normal <200 [facility] Comment on above: Order Comment: Barry men Type: BLOOD SPECIMENOrdering Facility: [facility] Address: [address] [place] [address] Result Comment: <200 mg/dL, Desirable 200-239 mg/dL, Borderline high >239 mg/dL, High Performed By: #### L IPNF, 62113-4 ####[facility] LABCLIA [id number] [place] [address] [place] HDL CHOLESTEROL, NF 44 mg/dL Normal >[address] [facility] Comment on above: Order Comment: Barry ivey Type: BLOOD SPECIMENOrdering Facility: [facility] Address: [address] [place] [address] Result Comment: 40-5 9 mg/dL, Acceptable >59 mg/dL, High: Negative risk factor for coronary heart disease <40 mg/dL, Low: Positive risk factor for coronary heart disease Performed By: #### L IPNF, 55641-5 ####[facility] LABCLIA [id number] [place] [address] [place] LDL CHOLESTEROL, NF 99 mg/dL Normal <[address] [facility] Comment on above: Order Comment: Barry ivey Type: BLOOD SPECIMENOrdering Facility: [facility] Address: [address] [place] [address] Result Comment: <100 mg/dL, Optimal 100-129 mg/dL, Near optimal/above optimal 130-159 mg/dL, Borderline high 160-189 mg/dL, High >189 mg/dL, Very high Secondary prevention optimal LDL Cholesterol levels are recommended to be < 70 mg/dL Performed By: #### L IPNF, 95325-6 ####[facility] LABCLIA [id number] [place] [address] [place] LDL/HDL RATIO, NF 2.25 mg/dL Normal <2.54 [facility] Comment on above: Order Comment: Barry ivey Type: BLOOD SPECIMENOrdering Facility: [facility] Address: [address] [place] [address] Result Comment: Refchristy schwartz: 1. National Cholesterol Education Program ATP III Guideline At-A-Glance Quick Desk Reference: National Heart, Lung, and Blood [place]. National Institutes of Health. 2001: NIH Publication No. 01-3305. 2. An International Atherosclerosis Society position paper: global recommendations for the management of dyslipidemia: executive summary, Atherosclerosis. 2014: 232(2):410-413. Performed By: #### L IPNF, 53592-7 ####[facility] LABCLIA [id number] [place] [address] [place] NON HDL CHOL, NF 129 mg/dL Normal <130 [facility] Comment on above: Order Comment: Speci men Type: BLOOD SPECIMENOrdering Facility: [facility] Address: [address] [place] [address] Result Comment: <130 mg/dL, Optimal 130-159 mg/dL, Near optimal/above optimal 160-189 mg/dL, Borderline high 190-219 mg/dL, High >219 mg/dL, Very high Secondary prevention optimal non HDL Cholesterol levels are recommended to be <100 mg/dL Performed By: #### L IPNF, 09127-8 ####[facility] LABCLIA [id number] [address] [place] T CHOL/HDL RATIO NF 3.93 mg/dL Normal <5.[address] [facility] Comment on above: Order Comment: Barry ivey Type: BLOOD SPECIMENOrdering Facility: [facility] Address: [address] [place] [address] Performed By: #### L IPNF, 97826-6 ####[facility] LABCLIA [id number] [place] [address] [place] TRIGLYCERIDES, NF 149 mg/dL Normal <150 [facility] Comment on above: Order Comment: Barry ivey Type: BLOOD SPECIMENOrdering Facility: [facility] Address: [address] [place] [address] Result Comment: <150 mg/dL, Normal 150-199 mg/dL, Borderline high 200-499 mg/dL, High >499 mg/dL, Very high Performed By: #### L IPNF, 71316-3 ####[facility] LABCLIA [id number] [place] [address] [place] VLDL CHOLESTEROL, NF 30 mg/dL High <30 [facility] Comment on above: Order Comment: Speci men Type: BLOOD SPECIMENOrdering Facility: [facility] Address: [address] [place] [address] Performed By: #### L IPNF, 04633-4 ####[facility] LABCLIA [id number] [address] [place] CNOVon 01-26-2024 CNOV Office Visit (FAMPWS) DIANNE HOLLY ([id number]) 1950 F Date Time Provider Department 01/26/24 1:40 PM ALLIE LEMUS During your visit today, we recorded the following information about you: Pulse Blood pressure Weight 95/minute 111/75 125.6 kg Allie Lemus APRN.HARMONIC ANALYST 01/26/2024 2:06 PM Signed Chief Complaint Patient presents with: Sleep Problem HPI Dianne Holly is a 73 year old female who presents here today for Above Complaints.. Patient presents for sleep issues. Has sleep apnea and is working with neurology/pulmonolog y as she can not tolerate CPAP. Reports she wakes up every hour and has daytime fatigue and sleepiness. Also reports a flare of her sciatica to the right side and low back spasms/pain. Also reports head cold that started yesterday. Past medical history, appointments, medications, allergies reviewed. Previous Medical History PAST MEDICAL HISTORY Diagnosis Date Adenoma of left adrenal gland 12/06/2018 Seen [facility] ER CT 11/28/2018 was stable in size since CT done 11/2015: benign. ADRENAL NODULE 11/17/2007 Anxiety state 11/19/2006 Arthritis Benign neoplasm of colon BPPV (benign paroxysmal positional vertigo) 04/03/2015 Chronic left shoulder pain 09/17/2015 Class 3 severe obesity due to excess calories without serious comorbidity with body mass index (BMI) of 45.0 to 49.9 in adult ([facility]) 06/18/2014 Coronary artery calcification 09/08/[address] 08/2022 DDD (degenerative disc disease), lumbar 01/15/2016 Delayed emergence from general anesthesia Diverticulitis of large intestine without perforation or abscess without bleeding 06/03/2016 Elevated blood sugar 08/07/2023 Elevated hemoglobin A1c 08/07/2023 Emphysema of lung ([facility]) 06/18/2014 Encounter for Medicare annual wellness exam 11/23/2017 Medicare Part B: 11/29/2016 last done: 08/11/2023 Essential hypertension 11/19/2006 Family history of early [...] 11/23/2017 Recurrent major depressive disorder, in remission ([facility]) 11/23/2017 Smoker 05/27/2010 Stage 3a chronic kidney disease ([facility]) 08/11/2023 Status post right hip replacement 10/01/2017 Venous [...] SINGLE/MULTIPLE 04/01/2009 EGD TRANSORAL BIOPSY SINGLE/MULTIPLE 06/22/[address] [facility] [address] Marroquin FRACTURE SURGERY JOINT REPLACEMENT [...] nausea/ throat swelling Ibuprofen Vomiting Hematemesis - [facility] 06/21/2012 Nickel Rash Can only wear gold earrings Current Medications Current Outpatient Medications on File Prior to Visit Medication Sig fluticasone-umeclidi n-vilanter (TRELEGY ELLIPTA) 100-62.5-25 mcg inhalation powder Inhale 1 Puff as instructed once daily. nicotine (NICODERM CQ) 14 mg/24 hr Apply 1 Patch as directed every 24 hours. For 3 weeks then decrease to the 7 mg patch nicotine (NICODERM) 7 mg/24 hr Apply 1 Patch as directed (more content not included)... Normal [facility] [place] 01-26-2024 [facility] Telephone (PASCALEWS) DIANNE HOLLY ([id number]) 1950 F Date Time Provider Department 01/26/24 [facility] During your visit today, we recorded the following information about you: Lucina Granados MA 01/26/2024 8:09 AM Signed TC to patient. Unable to reach. Patient has an appt. At 140 with RR who will be out of the office after 11am today. Availability for an earlier appointment or can be R/S with DK at the same time. Lucina Granados MA Allergies As of Date: 01/26/2024 Noted Allergy Reaction FLAGYL (METRONIDAZOLE HCL) 01/29/2009 9 - Itching 14 - Other: See Comments Comments: nausea/ throat swelling IBUPROFEN 07/04/2012 11 - Vomiting Comments: Hematemesis - [facility] 06/21/2012 NICKEL 11/10/2016 2 - Rash Comments: Can only wear gold earrings Date Reviewed: 12/16/2023 Reviewed by: Naomy Parker MD - Fully Assessed Reason for Visit: Appointment [186] Prescriptions as of 01/26/2024 - fluticasone-umeclidi n-vilanter (TRELEGY ELLIPTA) 100-62.5-25 mcg inhalation powder Inhale 1 Puff as instructed once daily. - nicotine (NICODERM CQ) 14 mg/24 hr Apply 1 Patch as directed every 24 hours. For 3 weeks then decrease to the 7 mg patch - nicotine (NICODERM) 7 mg/24 hr Apply 1 Patch as directed every 24 hours. Start after use of 14 mg patches - albuterol HFA (PROVENTIL HFA, VENTOLIN HFA) 90 mcg/actuation inhaler Inhale 2 Puffs as instructed every 4 hours as needed. - omeprazole (PRILOSEC) 20 mg capsule Take 1 capsule by mouth two times a day. - solifenacin (VESICARE) 5 mg tablet Take 1 tablet by mouth once daily. - CPAP/BIPAP/OTHER autoCPAP 13-20 cmH2O with 1.5 LPM O2 bleed in D[employer] - verapamil SR (CALAN SR) 180 mg CR tablet Take 1.5 tablets by mouth once daily. - buPROPion SR (WELLBUTRIN SR) 150 mg 12 hr tablet Take 1 tablet by mouth once daily. - cyanocobalamin (VITAMIN B-12) 1,000 mcg tab Take 1 tablet by mouth once daily. - lisinopril-hydroCHLO ROthiazide (ZESTORETIC) 20-12.5 mg per tablet Take 2 tablets by mouth once daily. - pravastatin (PRAVACHOL) 40 mg tablet Take 1 tablet by mouth daily at bedtime. - sertraline (ZOLOFT) 100 mg tablet Take 1.5 tablets by mouth every evening. - triamcinolone acetonide (KENALOG) 0.1 % cream Apply 1 application to affected area three times a day. Apply sparingly to area for rash/itching. - ondansetron orally disintegrating (ZOFRAN ODT) 4 mg disintegrating tablet Take 1 tablet by mouth every 8 hours as needed. - MEDICAL SUPPLY BEDSIDE COMMODE. dx: right total hip replacement. z96.641 - COMPOUNDED PRESCRIPTION Bedside Commode Dx: right total hip replacement Z96.641 Problem List As Of Date 01/26/2024 Noted Resolved Gastroesophageal reflux disease without esophag*11/19/2006 [...] [M47.816] 01/15/2016 DDD (degenerative disc disease), lumbar [M51.36*01/15/2016 Diverticulitis of large intestine without perfo*06/03/2016 07/28/2017 Primary osteoarthritis of right hip [M16.11] 09/21/2016 Chronic midline low back pain without sciatica *11/09/2016 07/28/2017 CKD (chronic kidney disease) stage 3, GFR 30-59*03/12/2017 07/28/2017 Vertigo [R42] 06/14/2017 Osteoarthritis of right hip [M16.11] 06/23/2017 06/25/2017 Encounter for Medicare annual wellness exam [Z0*11/23/2017 Screening for osteoporosis [Z13.820] 11/23/2017 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 Normal [facility] DI[facility]NE HO[facility] ([id number]) 1950 F Date Time Provider Department 01/20/24 [facility] CHUNG [facility] During your visit today, we recorded the following information about you: Catalina Pond LPN 01/20/2024 2:24 PM Signed Patient calling, states that she thinks she does need a sleep aid. States it has been discussed at her OV several times and she always declines. Lately she has not been able to sleep more than an hour at a time and she has been falling asleep during the day. Please advise. Padmini Solorzano PA-C 01/21/2024 11:29 AM Signed Patient has not seen PCP team recently. Should schedule a visit to discuss her specific sleep concerns. Kina Villegas LPN 01/21/2024 11:41 AM Signed Pt advised of Padmini's message. Appointment scheduled with Padmini 01/26/24. Kina Villegas LPN Allergies As of Date: 01/20/2024 Noted Allergy Reaction FLAGYL (METRONIDAZOLE HCL) 01/29/2009 9 - Itching 14 - Other: See Comments Comments: nausea/ throat swelling IBUPROFEN 07/04/2012 11 - Vomiting Comments: Hematemesis - [facility] 06/21/2012 NICKEL 11/10/2016 2 - Rash Comments: Can only wear gold earrings Date Reviewed: 12/16/2023 Reviewed by: Naomy Parker MD - Fully Assessed Reason for Visit: Question [1327] Prescriptions as of 01/21/2024 - fluticasone-umeclidi n-vilanter (TRELEGY ELLIPTA) 100-62.5-25 mcg inhalation powder Inhale 1 Puff as instructed once daily. - nicotine (NICODERM CQ) 14 mg/24 hr Apply 1 Patch as directed every 24 hours. For 3 weeks then decrease to the 7 mg patch - nicotine (NICODERM) 7 mg/24 hr Apply 1 Patch as directed every 24 hours. Start after use of 14 mg patches - albuterol HFA (PROVENTIL HFA, VENTOLIN HFA) 90 mcg/actuation inhaler Inhale 2 Puffs as instructed every 4 hours as needed. - omeprazole (PRILOSEC) 20 mg capsule Take 1 capsule by mouth two times a day. - solifenacin (VESICARE) 5 mg tablet Take 1 tablet by mouth once daily. - CPAP/BIPAP/OTHER autoCPAP 13-20 cmH2O with 1.5 LPM O2 bleed in DME [employer] - verapamil SR (CALAN SR) 180 mg CR tablet Take 1.5 tablets by mouth once daily. - buPROPion SR (WELLBUTRIN SR) 150 mg 12 hr tablet Take 1 tablet by mouth once daily. - cyanocobalamin (VITAMIN B-12) 1,000 mcg tab Take 1 tablet by mouth once daily. - lisinopril-hydroCHLO ROthiazide (ZESTORETIC) 20-12.5 mg per tablet Take 2 tablets by mouth once daily. - pravastatin (PRAVACHOL) 40 mg tablet Take 1 tablet by mouth daily at bedtime. - sertraline (ZOLOFT) 100 mg tablet Take 1.5 tablets by mouth every evening. - triamcinolone acetonide (KENALOG) 0.1 % cream Apply 1 application to affected area three times a day. Apply sparingly to area for rash/itching. - ondansetron orally disintegrating (ZOFRAN ODT) 4 mg disintegrating tablet Take 1 tablet by mouth every 8 hours as needed. - MEDICAL SUPPLY BEDSIDE COMMODE. dx: right total hip replacement. z96.641 - COMPOUNDED PRESCRIPTION Bedside Commode Dx: right total hip replacement Z96.641 Problem List As Of Date 01/20/2024 Noted Resolved Gastroesophageal reflux disease without esophag*11/19/2006 [...] [M47.816] 01/15/2016 DDD (degenerative disc disease), lumbar [M51.36*01/15/2016 Diverticulitis of large intestine without perfo*06/03/2016 07/28/2017 Primary osteoarthritis of right hip [M16.11] 09/21/2016 Chronic midline low back pain without sciatica *11/09/2016 07/28/2017 CKD (chronic kidney disease) stage 3, GFR 30-59*03/12/2017 07/28/2017 Vertigo [R42] 06/14/2017 Osteoarthritis of right hip [M16.11] 06/23/2017 06/25/2017 Enc (more content not included)... Normal [facility] CNOVon 12-16-2023 CNOV Office Visit (PULMWS) DIANNE HOLLY ([id number]) 1950 F Date Time Provider Department 12/16/23 11:00 AM NAOMY PARKER PULDAI During your visit today, we recorded the following information about you: Respiration Weight 16/minute 124.3 kg Naomy Parker MD 12/16/2023 3:51 PM Signed . [facility] Note Patient name: Dianne Holly PCP: Dewayne Chung MD Referring: Deonte Douglas CNP CC: Shortness of breath, chronic cough, wheezing HPI: Dianne Holly 73 year old female current 45 pack year smoker with PMH significant for morbid obesity, HTN, HLD, MÓNICA, CKD, GERD being referred by sleep medicine for nocturnal issues interfering with use of her CPAP. Current settings auto CPAP 13 to 20 cm H2O with 1 L bleed in oxygen. She relates her history back to 2018 when she was severely ill in January double pneumonia. Likely had COVID infection at that time. Since then she has had problems with chronic cough. She has coughing jags, some sputum production, nocturnal coughing which interferes with her sleep and ability to use her CPAP machine. She was prescribed albuterol which does help. She was also prescribed Arnuity but states that she cannot remember to use it so she is not certain if this would have been helpful or not for her respiratory issues. In addition to coughing she has wheezing which is more prominent at night when she lies supine. No postprandial coughing. She has known acid reflux disease and had previously been on omeprazole 20 mg twice daily but she has not been taking this medication as she has no symptoms of reflux such as burning, belching. She gets short of breath when climbing stairs or carrying groceries. She attributed her shortness of breath to recent weight gain. She continues to smoke although she has cut back to half a pack a day. She is on Wellbutrin which has helped her cut back on her smoking. She is currently participating in lung cancer screening which was pertinent for mild upper lobe emphysema. Her respiratory symptoms do not seem to be correlating with changes in weather. She is concerned that there may be an allergic component as she had significant trouble when visiting her son. She was coughing the entire time. She has a dog and her son also had a dog, different breeds. She does not have any significant sinus congestion, drainage, itchy eyes, sneezing. DATA: PFT 05/2022: Review pulmonary function test show mild obstruction without improvement postbronchodilator Nocturnal oximetry Performed on CPAP with 1 liter bleed-in. SpO2 decreased 24 sec. To 82%. Basal SpO2 90% Labs: Component Ref Range AND Units 4 mo ago (08/10/23) WBC 3.70 - 11.00 k/uL 8.54 RBC 3.90 - 5.20 m/uL 5.19 Hemoglobin 11.5 - 15.5 g/dL 15.2 Hematocrit 36.0 - 46.0 % 47.6 High MCV 80.0 - 100.0 fL 91.7 MCH 26.0 - 34.0 pg 29.3 MCHC 30.5 - 36.0 g/dL 31.9 RDW-CV 11.5 - 15.0 % 15.0 Platelet Count 150 - 400 k/uL 292 MPV 9.0 - 12.7 fL 10.2 Neutrophils % % 64.3 Abs Neut 1.45 - 7.50 k/uL 5.49 Lymphocytes % % 23.5 Abs Lymph 1.00 - 4.00 k/uL 2.01 Monocytes % % 8.8 Abs [place] <0.87 k/uL 0.75 Eosinophils % % 2.1 Abs Eosin <0.46 k/uL 0.18 Basophils % % 0.7 Abs Baso <0.11 k/uL 0.06 Immature Granulocytes % % 0.6 Abs Immature Gran <0.10 k/uL 0.05 NRBC /100 WBC 0.0 Absolute nRBC <0.01 k/uL <0.01 Diff Type Auto Imaging / Diagnostic Studies: DATE OF EXAM: Sep 24 2023 12:28PM [facility] 0562 - CT LUNG SCREEN WO IVCON / COMPARISON: CT 08/20/2022 RESULT: Are nodules present? Yes, 1-5 nodules Lung nodule comments: 2 mm left upper lobe nodule (57). 4 mm left fissural nodule (111). Stable opacity RIGHT upper lobe close to bronchial branch point series 5 image 72. Other findings: Degenerative changes of the thoracic spine. Increased areas of retained secretions/mucus impaction within bilateral lower lobe bronchi with some progression of LEFT lower lobe atelectasis, bronchial thickening, mild upper lobe predominant emphysema. Incidental coronary calcium as automatically processed and calculated using AI: I personally reviewed the images which is pertinent for mild upper lobe emphysema PAST MEDICAL HISTORY Diagnosis Date Adenoma of left adrenal gland 12/06/2018 Seen [facility] ER CT 11/28/2018 was stable in size since CT done 11/2015: benign. ADRENAL NODULE 11/17/2007 Anxiety state 11/19/2006 Arthritis Benign neoplasm of colon BPPV (benign paroxysmal positional vertigo) 04/03/2015 Chronic left shoulder pain 09/17/2015 Class 3 severe obesity due to excess calories without serious comorbidity with body mass index (BMI) of 45.0 to 49.9 in adult ([facility]) 06/18/2014 Coronary artery calcification 09/08/[address] 08/2022 DDD (degenerative disc disease), (more content not included)... Normal [facility] CNOVon 11-08-2023 CNOV Office Visit (UCWSTR) DIANNE HOLLY ([id number]) 1950 F Date Time Provider Department 11/08/23 1:15 PM KEKE BAE [facility] During your visit today, we recorded the following information about you: Temperature Pulse Respiration Blood pressure 98.1 degrees 74/minute 18/minute 126/80 Weight 122.5 kg Keke Bae APRN.HARMONIC ANALYST 11/08/2023 1:39 PM Signed Subjective HPI HPI Dianne Holly is a 72 year old female who presents today for CC of cough, congestion. This started 2-3 days ago. Has tried otc medication for relief. Symptoms are worsened by nothing. Risk factors hx of copd. .Patient presents with: Chest Congestion: cough x 2-3 days PAST MEDICAL HISTORY 12/06/2018: Adenoma of left adrenal gland Comment: Seen [facility] ER CT 11/28/2018 was stable in size since CT done 11/2015: benign. 11/17/2007: ADRENAL NODULE 11/19/2006: Anxiety state No date: Arthritis No date: Benign neoplasm of colon 04/03/2015: BPPV (benign paroxysmal positional vertigo) 09/17/2015: Chronic left shoulder pain 06/18/2014: Class 3 severe obesity due to excess calories without serious comorbidity with body mass index (BMI) of 45.0 to 49.9 in adult ([facility]) 09/08/2022: Coronary artery calcification Comment: Moderate per chest CT 08/202201/15/2016: DDD (degenerative disc disease), lumbar No date: Delayed emergence from general anesthesia 06/03/2016: Diverticulitis of large intestine without perforation or abscess without bleeding 08/07/2023: Elevated blood sugar 08/07/2023: Elevated hemoglobin A1c 06/18/2014: Emphysema of lung ([facility]) 11/23/2017: Encounter for Medicare annual wellness exam Comment: Medicare Part B: 11/29/2016 last done: 08/11/2023 11/19/2006: Essential hypertension 09/08/2022: Family history of early CAD Comment: Brother at age 47 11/19/2006: Gastroesophageal reflux disease without esophagitis 11/19/2006: Generalized osteoarthrosis, unspecified site No date: Internal hemorrhoids 11/23/2017: Medicare annual wellness visit, initial Comment: Medicare Part B: 11/29/2016 last done: 11/16/2018 03/19/2008: Mixed hyperlipidemia 08/03/2022: Moderate obstructive sleep apnea Comment: Consult sleep med 07/202201/15/2016: Osteoarthritis of lumbar spine 11/19/2006: Osteoarthritis of multiple joints 01/16/2019: Overactive bladder 09/21/2016: Primary osteoarthritis of right hip 11/23/2017: Primary ovarian failure 11/23/2017: Recurrent major depressive disorder, in remission ([facility]) 05/27/2010: Smoker 08/11/2023: Stage 3a chronic kidney disease ([facility]) 10/01/2017: Status post right hip replacement 10/16/2014: Venous insufficiency (chronic) (peripheral) 06/14/2017: Vertigo 05/26/2021: Vitamin B12 deficiency PAST SURGICAL HISTORY 2001: ARTHROSCOPY KNEE DIAGNOSTIC W/WO SYNOVIAL BX SPX Comment: Arthroscopy, knee right 06/23/2017: ARTHRP ACETBLR/PROX FEM PROSTC AGRFT/ALGRFT; Right Comment: Hip replacement, total No date: BREAST SURGERY HX 07/24/2021: COLONOSCOPY 06/16/2016: COLONOSCOPY AND POLYPECTOMY Comment: repeat 5 years 04/01/2009: COLONOSCOPY W/BIOPSY SINGLE/MULTIPLE 06/22/2012: EGD TRANSORAL BIOPSY SINGLE/MULTIPLE Comment: [facility] Dr Marroquin No date: FRACTURE SURGERY No date: JOINT REPLACEMENT HX 1974: LIG/TRNSXJ FLP TUBE ABDL/VAG APPR UNI/BI Comment: Tubal ligation 1985: PAST SURGICAL HISTORY OF Comment: ovarian cyst 2007: PAST SURGICAL HISTORY OF Comment: right breast removed bonnie. tumor 05/2008: PAST SURGICAL HISTORY OF Comment: bilateral eye lid surgery 12/22/2006: REM LESIO TRUNK,ARM,LEG 1.1 -2.0CM Comment: Exc. right lower back skin lesion No date: SKIN BIOPSY HX 1987: TOTAL ABDOMINAL HYSTERECT W/WO RMVL TUBE OVARY Comment: Hysterectomy, EDWINA - ovaries remain No date: VAGINAL HYSTERECTOMY ALLERGIES Flagyl [Metronidazole Hcl], Ibuprofen, and Nickel MEDICATIONS omeprazole (PRILOSEC) 20 mg capsule Take 1 capsule by mouth two times a day. solifenacin (VESICARE) 5 mg tablet Take 1 tablet by mouth once daily. CPAP/BIPAP/OTHER autoCPAP 13-20 cmH2O with 1.5 LPM O2 bleed in D[employer] verapamil SR (CALAN SR) 180 mg CR tablet Take 1.5 tablets by mouth once daily. albuterol HFA (PROVENTIL HFA, VENTOLIN HFA) 90 mcg/actuation inhaler Inhale 2 Puffs as instructed every 6 hours as needed. buPROPion SR (WELLBUTRIN SR) 150 mg 12 hr tablet Take 1 tablet by mouth once daily. cyanocobalamin (VITAMIN B-12) 1,000 mcg tab Take 1 tablet by mouth once daily. fluticasone furoate (ARNUITY ELLIPTA) 100 mcg/actuation inhaler Inhale 1 Puff as instructed once daily. Do a quick inhalation prior to brushing teeth. Then brush teeth, rinse, gargle and spit. lisinopril-hydroCHLO ROthiazide (ZESTORETIC) 20-12.5 mg per tablet Take 2 tablets by mouth once daily. pravastatin (PRAVACHOL) 40 mg tablet Take 1 tablet by mouth daily at bedtime. sertraline (ZOLOFT) 100 mg tablet Take 1.5 tablets by mouth ev (more content not included)... Normal [facility] COVID AND INFLUENZA A/B AND RSV PCR, ROUTINEon 11-08-2023 SARS-CoV-2 (COVID-19) RNA DAYANNA+probe Ql (Unsp spec) SARS-COV-2 (AGENT OF COVID-19) RNA: Not detected INFLUENZA A RNA: Not detected INFLUENZA B RNA: Not detected RESPIRATORY SYNCYTIAL VIRUS (RSV) RNA: Not detected Normal [facility] Comment on above: Performed By: #### C VFLRS ####[facility] LABCLIA [id number] [address] [address] [place] XR CHEST 2V FRONTAL/LATon XR CHEST 2V FRONTAL/LAT * * *Final Repor t* * * DATE OF EXAM: Nov 08 2023 12:43PM WOX [id number] - XR CHEST 2V FRONTAL/LAT / PROCEDURE REASON: Acute cough * * * * Physician Interpretation * * * * EXAMINATION: CHEST RADIOGRAPH (2 VIEW FRONTAL and LATERAL) CLINICAL HISTORY: Acute cough MQ: XC2_6 EXAM DATE/TIME: 11/08/2023 12:43 PM COMPARISON: Chest x-ray dated 05/02/2021 RESULT: Lines, tubes, and devices: None. Lungs and pleura: Mild linear atelectasis and/or scarring in the left lower lung zone. No consolidation. No lung mass. No pleural effusion. No pneumothorax. Cardiomediastinal silhouette: Stable cardiomediastinal silhouette. Bones and soft tissues: Degenerative changes are present within the thoracic spine. IMPRESSION: No acute significant radiographic abnormality. Crisis Therapist: ONIEL Transcribe Date/Time: Nov 08 2023 12:43P Dictated by : SANJAY MENDEZ MD This examination was interpreted and the report reviewed and electronically signed by: SANJAY MENDEZ MD on Nov 08 2023 12:44PM EST [id number] Normal [facility] XR Chest PA and Lateralon IMPRESSION: No acute significant radiographic abnormality. Crisis Therapist: ONIEL Transcribe Date/Time: Nov 08 2023 12:43P Dictated by : SANJAY MENDEZ MD This examination was interpreted and the report reviewed and electronically signed by: SANJAY MENDEZ MD on Nov 08 2023 12:44PM EST DIVISION OF RADIOLOGY * * *Final Report* * * DATE OF EXAM: Nov 08 2023 12:43PM WOX [id number] - XR CHEST 2V FRONTAL/LAT / PROCEDURE REASON: Acute cough * * * * Physician Interpretation * * * * EXAMINATION: CHEST RADIOGRAPH (2 VIEW FRONTAL & LATERAL) CLINICAL HISTORY: Acute cough MQ: XC2_6 EXAM DATE/TIME: 11/08/2023 12:43 PM COMPARISON: Chest x-ray dated 05/02/2021 RESULT: Lines, tubes, and devices: None. Lungs and pleura: Mild linear atelectasis and/or scarring in the left lower lung zone. No consolidation. No lung mass. No pleural effusion. No pneumothorax. Cardiomediastinal silhouette: Stable cardiomediastinal silhouette. Bones and soft tissues: Degenerative changes are present within the thoracic spine. DIVISION OF RADIOLOGY Provider, [facility] - 11/08/2023 * * *Final Report* * * DATE OF EXAM: Nov 08 2023 12:43PM WOX [id number] - XR CHEST 2V FRONTAL/LAT / PROCEDURE REASON: Acute cough * * * * Physician Interpretation * * * * EXAMINATION: CHEST RADIOGRAPH (2 VIEW FRONTAL & LATERAL) CLINICAL HISTORY: Acute cough MQ: XC2_6 EXAM DATE/TIME: 11/08/2023 12:43 PM COMPARISON: Chest x-ray dated 05/02/2021 RESULT: Lines, tubes, and devices: None. Lungs and pleura: Mild linear atelectasis and/or scarring in the left lower lung zone. No consolidation. No lung mass. No pleural effusion. No pneumothorax. Cardiomediastinal silhouette: Stable cardiomediastinal silhouette. Bones and soft tissues: Degenerative changes are present within the thoracic spine. IMPRESSION IMPRESSION: No acute significant radiographic abnormality. Crisis Therapist: PSCB Transcribe Date/Time: Nov 08 2023 12:43P Dictated by : SANJAY MENDEZ MD This examination was interpreted and the report reviewed and electronically signed by: SANJAY MENDEZ MD on Nov 08 2023 12:44PM EST [facility] Radiology Study observation (narrative) Paulo [place] XR Chest PA and LateralOrder ed By: Cc Provider on 11-08-2023 [facility] CNPNon 11-06-2023 CNPN Telephone (FAMPWS) DIANNE HOLLY ([id number]) 1950 F Date Time Provider Department 11/06/23 DEWAYNE CHUNG During your visit today, we recorded the following information about you: Dewayne Chung MD 11/06/2023 8:19 PM Signed Let patient know bone strength study showed normal bone strength. Juli Pena MA 11/08/2023 8:53 AM Signed Message left for pt to call back for results. Salma Baker MA, RN 11/08/2023 1:16 PM Signed Pt returned call and given provider's message below with verbalized understanding. Allergies As of Date: 11/06/2023 Noted Allergy Reaction FLAGYL (METRONIDAZOLE HCL) 01/29/2009 9 - Itching 14 - Other: See Comments Comments: nausea/ throat swelling IBUPROFEN 07/04/2012 11 - Vomiting Comments: Hematemesis - [facility] 06/21/2012 NICKEL 11/10/2016 2 - Rash Comments: Can only wear gold earrings Date Reviewed: 10/18/2023 Reviewed by: Katia Fitzgerald LPN - Fully Assessed Reason for Visit: Results [95] Primary Visit Diagnosis:Screening for osteoporosis [Z13.820] Prescriptions as of 11/08/2023 - doxycycline monohydrate 100 mg tablet Take 1 tablet by mouth two times a day for 7 days. - predniSONE (DELTASONE) 20 mg tablet Take 2 tablets by mouth once daily for 5 days. - omeprazole (PRILOSEC) 20 mg capsule Take 1 capsule by mouth two times a day. - solifenacin (VESICARE) 5 mg tablet Take 1 tablet by mouth once daily. - CPAP/BIPAP/OTHER autoCPAP 13-20 cmH2O with 1.5 LPM O2 bleed in D[employer] - verapamil SR (CALAN SR) 180 mg CR tablet Take 1.5 tablets by mouth once daily. - albuterol HFA (PROVENTIL HFA, VENTOLIN HFA) 90 mcg/actuation inhaler Inhale 2 Puffs as instructed every 6 hours as needed. - buPROPion SR (WELLBUTRIN SR) 150 mg 12 hr tablet Take 1 tablet by mouth once daily. - cyanocobalamin (VITAMIN B-12) 1,000 mcg tab Take 1 tablet by mouth once daily. - fluticasone furoate (ARNUITY ELLIPTA) 100 mcg/actuation inhaler Inhale 1 Puff as instructed once daily. Do a quick inhalation prior to brushing teeth. Then brush teeth, rinse, gargle and spit. - lisinopril-hydroCHLO ROthiazide (ZESTORETIC) 20-12.5 mg per tablet Take 2 tablets by mouth once daily. - pravastatin (PRAVACHOL) 40 mg tablet Take 1 tablet by mouth daily at bedtime. - sertraline (ZOLOFT) 100 mg tablet Take 1.5 tablets by mouth every evening. - triamcinolone acetonide (KENALOG) 0.1 % cream Apply 1 application to affected area three times a day. Apply sparingly to area for rash/itching. - ondansetron orally disintegrating (ZOFRAN ODT) 4 mg disintegrating tablet Take 1 tablet by mouth every 8 hours as needed. - MEDICAL SUPPLY BEDSIDE COMMODE. dx: right total hip replacement. z96.641 - COMPOUNDED PRESCRIPTION Bedside Commode Dx: right total hip replacement Z96.641 Problem List As Of Date 11/06/2023 Noted Resolved Gastroesophageal reflux disease without esophag*11/19/2006 [...] Osteoarthritis of right hip [M16.11] 06/23/2017 06/25/2017 Encounter for Medicare annual wellness exam [Z0*11/23/2017 Screening for osteoporosis [Z13.820] 11/23/2017 Primary ovarian failure [E28.39] 11/23/2017 Encounter for screening mammogram for breast ca*11/23/2017 Re (more content not included)... Normal [facility] BD DXA - AXIAL SKELETONon BD DXA - AXIAL SKELETON * * *Final Repor t* * * DATE OF EXAM: Nov 04 2023 2:16PM FUENTES 0804 - BD DXA - AXIAL SKELETON / PROCEDURE REASON: multiple diagnoses * * * * Physician Interpretation * * * * EXAMINATION: DXA BONE DENSITOMETRY BD DXA - AXIAL SKELETON PATIENT DEMOGRAPHICS: Age: 72 years, Gender: Female SCANNER INFORMATION: DXA Model: [employer] C [id number] Date Scanned: 11/04/2023 2:16 PM CLINICAL HISTORY: SCREENING Screening for osteoporosis Primary ovarian failure . RISK FACTORS FOR OSTEOPOROSIS AND ASSOCIATED FRACTURES REPORTED BY THIS PATIENT: Please refer to Bone Health Questionnaire in the EMR CURRENT THERAPY: Please refer to Bone Health Questionnaire in the EMR TECHNICAL LIMITATIONS: RESULTS: Lumbar spine (L1, L2, L3, L4): 1.199 g/cm2, T-score 1.4 , Z-score 3.6 Lumbar spine: 2021 : 1.211 g/cm2 No statistically significant change Left Femoral Neck: 0.810 g/cm2, T-score -0.4 , Z-score 1.5 Left Femoral Neck: 2021 : 0.842 g/cm2 No statistically significant change Left Total Hip: 1.052 g/cm2, T-score 0.9 , Z-score 2.5 Left Total Hip: 2021 : 1.059 g/cm2 No statistically significant change CHANGE IS STATISTICALLY SIGNIFICANT IN THE SPINE OR HIP IF GREATER THAN OR EQUAL TO 0.04 g/cm2 VERTEBRAL FRACTURE ASSESSMENT Not performed. TRABECULAR BONE ASSESSMENT TBS not performed: not ordered IMPRESSION: THE LOWEST T-SCORE IS -0.4 IN THE LEFT HIP 1) DIAGNOSIS (based on BMD alone): NORMAL BONE DENSITY Caution: Medical conditions other than osteoporosis may cause low bone density, such as osteomalacia or renal osteodystrophy. Clinical correlation is necessary. 2) FRACTURE RISK (based on FRAX): 10-year absolute fracture risk: - major osteoporotic fracture = 10 % - hip fracture = 1.1 % - A diagnosis of Osteoporosis, a 10 year probability of hip fracture greater than or equal to 3% or a 10 year probability of any major osteoporosis-related fracture greater than or equal to 20% should be considered for treatment. - DXA scanner generated FRAX calculations may slightly differ from online FRAX calculations due to differences in software versions. - All recommendations and calculations are to be considered as guidelines and should not replace sound clinical judgement - Caution: Fracture risk may be increased independent of BMD in patients with corticosteroid use, age greater than 65 years, or a history of prior fragility fracture. RECOMMENDATIONS: Follow-up in 2 years or as clinically indicated. Patients that are taking corticosteroids, are transplant recipients or have hyperparathyroidism should have annual follow-up. Follow-up scans should always be done on the same machine for accurate comparison. FOR MORE INFORMATION ABOUT DIAGNOSIS AND TREATMENT: [facility] Center for Osteoporosis and Metabolic Bone Disease:? www.ccf.org/arthriti s/osteo National Osteoporosis Foundation:? www.nof.org International Society of Clinical Densitometry www.iscd.org Crisis Therapist: ONIEL Transcribe Date/Time: Nov 06 2023 11:23A Dictated by : ANNETTE GAMEZ MD This examination was interpreted and the report reviewed and electronically signed by: ANNETTE GAMEZ MD on Nov 06 2023 11:25AM EST [id number] CN -0.4 Normal [facility] CNPNon 10-20-2023 STEPHANIN Telephone ([facility]) DIANNE HOLLY ([id number]) 1950 F Date Time Provider Department 10/20/23 DORIAN KERN [facility] During your visit today, we recorded the following information about you: Dorian Kern APRN.CNP 10/20/2023 10:47 AM Signed PCP is agreeable to increasing the dose of omeprazole 20 mg to twice daily. Rx sent to pharmacy and left pt a message with the details. Dorian Kern APRN.CNP Allergies As of Date: 10/20/2023 Noted Allergy Reaction FLAGYL (METRONIDAZOLE HCL) 01/29/2009 9 - Itching 14 - Other: See Comments Comments: nausea/ throat swelling IBUPROFEN 07/04/2012 11 - Vomiting Comments: Hematemesis - [facility] 06/21/2012 NICKEL 11/10/2016 2 - Rash Comments: Can only wear gold earrings Date Reviewed: 10/18/2023 Reviewed by: Katia Fitzgerald LPN - Fully Assessed Reason for Visit: Medication Dosage Adjustment [1205] Order(s):omeprazole (PRILOSEC) 20 mg capsuleTake 1 capsule by mouth two times a day.Disp: 180 capsuleRfl: 3 Prescriptions as of 10/20/2023 - omeprazole (PRILOSEC) 20 mg capsule Take 1 capsule by mouth two times a day. - solifenacin (VESICARE) 5 mg tablet Take 1 tablet by mouth once daily. - CPAP/BIPAP/OTHER autoCPAP 13-20 cmH2O with 1.5 LPM O2 bleed in DME [employer] - verapamil SR (CALAN SR) 180 mg CR tablet Take 1.5 tablets by mouth once daily. - albuterol HFA (PROVENTIL HFA, VENTOLIN HFA) 90 mcg/actuation inhaler Inhale 2 Puffs as instructed every 6 hours as needed. - buPROPion SR (WELLBUTRIN SR) 150 mg 12 hr tablet Take 1 tablet by mouth once daily. - cyanocobalamin (VITAMIN B-12) 1,000 mcg tab Take 1 tablet by mouth once daily. - fluticasone furoate (ARNUITY ELLIPTA) 100 mcg/actuation inhaler Inhale 1 Puff as instructed once daily. Do a quick inhalation prior to brushing teeth. Then brush teeth, rinse, gargle and spit. - lisinopril-hydroCHLO ROthiazide (ZESTORETIC) 20-12.5 mg per tablet Take 2 tablets by mouth once daily. - pravastatin (PRAVACHOL) 40 mg tablet Take 1 tablet by mouth daily at bedtime. - sertraline (ZOLOFT) 100 mg tablet Take 1.5 tablets by mouth every evening. - triamcinolone acetonide (KENALOG) 0.1 % cream Apply 1 application to affected area three times a day. Apply sparingly to area for rash/itching. - ondansetron orally disintegrating (ZOFRAN ODT) 4 mg disintegrating tablet Take 1 tablet by mouth every 8 hours as needed. - MEDICAL SUPPLY BEDSIDE COMMODE. dx: right total hip replacement. z96.641 - COMPOUNDED PRESCRIPTION Bedside Commode Dx: right total hip replacement Z96.641 Problem List As Of Date 10/20/2023 Noted Resolved Gastroesophageal reflux disease without esophag*11/19/2006 [...] Osteoarthritis of right hip [M16.11] 06/23/2017 06/25/2017 Encounter for Medicare annual wellness exam [Z0*11/23/2017 Screening for osteoporosis [Z13.820] 11/23/2017 Primary ovarian failure [E28.39] 11/23/2017 Encounter for screening mammogram for breast ca*11/23/2017 Recurrent major depressive disorder, in remissi*11/23/2017 Current use of proton pump inhibitor [Z79.899] 11/23/2017 06/15/2022 BPPV (benign paroxysmal positional vertigo) [H8*04/03/2015 Diverticulitis of large intestine without perfo* (more content not included)... Normal [facility] CNOVon 10-18-2023 CNOV Office Visit (PULMWS) DIANNE HOLLY ([id number]) 1950 F Date Time Provider Department 10/18/23 2:00 PM DORIAN KERN PULDAI During your visit today, we recorded the following information about you: Weight 121.3 kg Dorian Kern APRN.CNP 10/19/2023 9:43 AM Signed LUNG SCREENING ANNUAL VISIT PRIMARY CARE PHYSICIAN: Dewayne Chung MD PULMONARY PROVIDER: none Results will be communicated via letter or electronic record if applicable. Visit Delivery: In Person Patient Visit Type: established Current or Ex-smoker? [Current Exam Type: annual LDCT Number of Pack Years: 45.3 Current smoker (=0) The patient's smoking history is similar to prior year shared decision visit. The reason for the discrepancy is NA Chief Complaint: Established patient in lung cancer screening program here for annual follow-up. Impression / Recommendations Dianne Holly presents for annual lung cancer screening annual exam and nodule evaluation. Plan: Indeterminate pulmonary nodules: Previously identified nodules appear stable and no new nodules of concern were seen on the exam. Low dose CT Scan to be repeated in one year. Plan subject to change pending final radiology report and recommendations. Nature of the lung nodule(s) and the options for further evaluation discussed in detail with patient. Dianne Holly expressed understanding and is in agreement with plan. 2. Encounter for screening for malignant neoplasm of respiratory organs I have determined that the patient is eligible for continued low dose CT screening based on age, absence of signs or symptoms of lung cancer, smoking history and total pack years. The patient was counseled on the importance of adherence to annual LDCT lung cancer screening, impact of comorbidities and ability or willingness to undergo diagnosis and treatment. The patient understands and feels comfortable with it: Yes. 3. Nicotine Dependence The patient was counseled on the importance of smoking cessation if current smoker and, if appropriate, offered additional tobacco cessation counseling services - Smoking Cessation Counseling. SMOKING CESSATION COUNSELING Smoking cessation methods including Behavior Modification were discussed with the patient and assistance offered. The medical conditions adversely affected by cigarette use include:COPD, Emphysema, and Lung Cancer. Counseled on benefits of quitting smoking, recommended cessation or reduction to prevent development and/or progression of emphysema. The patient is currently not ready to quit. I personally spent 3 minutes in counseling. The time spent in smoking cessation counseling is exclusive of any other counseling during this visit. I spent a total of 30 minutes on the date of the service which included preparing to see the patient, [id number] patient care, completing clinical documentation, performing a medically appropriate examination, counseling and educating the patient/family/careg iver, ordering medications, tests, or procedures, communicating with other HCPs (not separately reported), independently interpreting results (not separately reported), communicating results to the patient/family/careg iver, and care coordination (not separately reported). Dorian Kern APRN.[facility] October 18, 2023 1:52 PM History of Present Illness: Dianne Holly is a 72 year old female who is presenting today for annual lung cancer screening LDCT and nodule surveillance/managem ent. Patient has multiple nodules found on previous lung cancer screening LDCT. Last LDCT was performed on 08/20/2022 and was LUNG RADS Category 2. Previous potentially significant incidental findings on imaging: moderate CAC . Saw PCP and they did stress test. Patient is a current smoker with a 45.3 pack year history. Patient is currently still smoking 5-10 cigarettes daily. Patient will continue to be eligible for lung cancer screening until age 78. The patient does not have any symptoms or signs of lung cancer. Patient has SOB with their daily activity, since COVID in . No wheezing or dyspnea. Patient denies feeling of chest tightness/congestion in the chest. Patient does not have a new or concerning cough, and denies hemoptysis. Patient does have a chronic daily cough. Denies regular or recent fevers/chills. Patient does not have any significant unintentional weight loss. Patient denies having any respiratory infections or COVID-19 in the past few months. Uses Arnuity daily. Dicussed CT findings of mucus plugging and possible aspiration. pt admits to coughing during sleep. She takes omeprazole 20 mg daily in the morning. Modified Medical Research [place] Dyspnea Scale (MMRC) I only g (more content not included)... Normal [facility] 10-03-2023 EVER Telephone (MAO) DIANNE HOLLY ([id number]) 1950 F Date Time Provider Department 10/03/23 DEONTE DOUGLAS During your visit today, we recorded the following information about you: Deonte Douglas APRN.CNP 10/03/2023 10:54 AM Signed Please fax [place] [facility] [place] traditional FFM instead of hybrid FFM Deonte Douglas APRN.STEPHANI KellydemarcoMaryann OCCA 10/04/2023 9:26 AM Signed Faxed to [facility] [place] as requested. ANNITA Pierre Allergies As of Date: 10/03/2023 Noted Allergy Reaction FLAGYL (METRONIDAZOLE HCL) 01/29/2009 9 - Itching 14 - Other: See Comments Comments: nausea/ throat swelling IBUPROFEN 07/04/2012 11 - Vomiting Comments: Hematemesis - [facility] 06/21/2012 NICKEL 11/10/2016 2 - Rash Comments: Can only wear gold earrings Date Reviewed: 09/24/2023 Reviewed by: Rosanna Laurent LPN - Fully Assessed Prescriptions as of 10/04/2023 - CPAP/BIPAP/OTHER autoCPAP 13-20 cmH2O with 1.5 LPM O2 bleed in D[employer] - verapamil SR (CALAN SR) 180 mg CR tablet Take 1.5 tablets by mouth once daily. - albuterol HFA (PROVENTIL HFA, VENTOLIN HFA) 90 mcg/actuation inhaler Inhale 2 Puffs as instructed every 6 hours as needed. - buPROPion SR (WELLBUTRIN SR) 150 mg 12 hr tablet Take 1 tablet by mouth once daily. - cyanocobalamin (VITAMIN B-12) 1,000 mcg tab Take 1 tablet by mouth once daily. - fluticasone furoate (ARNUITY ELLIPTA) 100 mcg/actuation inhaler Inhale 1 Puff as instructed once daily. Do a quick inhalation prior to brushing teeth. Then brush teeth, rinse, gargle and spit. - lisinopril-hydroCHLO ROthiazide (ZESTORETIC) 20-12.5 mg per tablet Take 2 tablets by mouth once daily. - omeprazole (PRILOSEC) 20 mg capsule Take 1 capsule by mouth once daily. - pravastatin (PRAVACHOL) 40 mg tablet Take 1 tablet by mouth daily at bedtime. - sertraline (ZOLOFT) 100 mg tablet Take 1.5 tablets by mouth every evening. - triamcinolone acetonide (KENALOG) 0.1 % cream Apply 1 application to affected area three times a day. Apply sparingly to area for rash/itching. - solifenacin (VESICARE) 5 mg tablet Take 1 tablet by mouth once daily. - ondansetron orally disintegrating (ZOFRAN ODT) 4 mg disintegrating tablet Take 1 tablet by mouth every 8 hours as needed. - MEDICAL SUPPLY BEDSIDE COMMODE. dx: right total hip replacement. 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 Normal [facility] CNOVon 09-24-2023 CNOV Office Visit (CLAUDINET) DIANNE HOLLY ([id number]) 1950 F Date Time Provider Department 09/24/23 10:30 AM DEONTE DOUGLAS During your visit today, we recorded the following information about you: Pulse Respiration Blood pressure Weight 68/minute 18/minute 117/77 120.7 kg Deonte Douglas APRN.CNP 10/03/2023 10:53 AM Signed [facility] Follow up/ Established patient visit Date of last visit : 07/19/2023 The following Impression/Plan was copied and pasted from the patient's last Sleep Disorders Center visit on 07/19/23: IMPRESSION: Mónica (obstructive sleep apnea) (primary encounter diagnosis) Sleep related hypoxia Dianne Holly is a 72 year old female with PMH of at least moderate MÓNICA, sleep related hypoxia, obesity, HTN, HLD, emphysema, smoker, GERD, diverticulitis, MDD, anxiety. She is trying to use PAP more, she is reporting benefits. Aim for using it all night, every night. PLAN: - Continue Auto CPAP at 13-20 cmH2O with 1.5 LPM O2 - Remember to clean your mask and equipment regularly, as directed. - You should be eligible for new supplies approximately every 3-6 months, depending on your insurance coverage. Contact your [employer] company for new supplies as needed. - Follow up in 3 months with STEVE. - encouraged smoking cessation, smokes up to 1/2 ppd Deonte Douglas APRN.CNP Here for follow up for MÓNICA Can't tolerate PAP--causing increased phlegm that wakes her up. Can be in back of throat and in her chest. Can have mucus in her mask when she wakes up. Not using O2 at night unless she has the bleed in with PAP, 1 LPM. SLEEP APNEA Sleep apnea type : MÓNICA, Most Recent Apnea-Hypopnea Index (AHI): 26 on HSAT in 06/2022 Treatment : PAP therapy DME: [employer] PAP History: Current PAP settin-20 cm H2O. Reviewed objective PAP compliance data: Mask type: hybrid full face mask PATIENT-ENTERED QUESTIONNAIRE SLEEP SCORES 11/09/2016 06/15/2022 PHQ-9 Score 9 9 09/21/2016 11/09/2016 11/09/2016 PROMIS Global Health - (T-Scores - the mean of general population = 50. Five points is a clinically meaningful difference.) Physical T-Score 32.4 32.4 Mental T-Score 38.8 36.3 36.3 ALLERGIES Allergen Reactions Flagyl [Metronidazo* Itching, Other: See Comments nausea/ throat swelling Ibuprofen Vomiting Hematemesis - [facility] 06/21/2012 Nickel Rash Can only wear gold earrings CURRENT MEDICATIONS: CPAP/BIPAP/OTHER autoCPAP 13-20 cmH2O with 1.5 LPM O2 bleed in D[employer] verapamil SR (CALAN SR) 180 mg CR tablet Take 1.5 tablets by mouth once daily. albuterol HFA (PROVENTIL HFA, VENTOLIN HFA) 90 mcg/actuation inhaler Inhale 2 Puffs as instructed every 6 hours as needed. buPROPion SR (WELLBUTRIN SR) 150 mg 12 hr tablet Take 1 tablet by mouth once daily. cyanocobalamin (VITAMIN B-12) 1,000 mcg tab Take 1 tablet by mouth once daily. fluticasone furoate (ARNUITY ELLIPTA) 100 mcg/actuation inhaler Inhale 1 Puff as instructed once daily. Do a quick inhalation prior to brushing teeth. Then brush teeth, rinse, gargle and spit. lisinopril-hydroCHLO ROthiazide (ZESTORETIC) 20-12.5 mg per tablet Take 2 tablets by mouth once daily. omeprazole (PRILOSEC) 20 mg capsule Take 1 capsule by mouth once daily. pravastatin (PRAVACHOL) 40 mg tablet Take 1 tablet by mouth daily at bedtime. sertraline (ZOLOFT) 100 mg tablet Take 1.5 tablets by mouth every evening. triamcinolone acetonide (KENALOG) 0.1 % cream Apply 1 application to affected area three times a day. Apply sparingly to area for rash/itching. solifenacin (VESICARE) 5 mg tablet Take 1 tablet by mouth once daily. ondansetron orally disintegrating (ZOFRAN ODT) 4 mg disintegrating tablet Take 1 tablet by mouth every 8 hours as needed. MEDICAL SUPPLY BEDSIDE COMMODE. dx: right total hip replacement. z96.641 COMPOUNDED PRESCRIPTION Bedside Commode Dx: right total hip replacement Z96.641 PHYSICAL EXAMINATION: Vital Signs: BP 117/77 Pulse 68 Resp 18 Wt 120.7 kg (266 lb) SpO2 95% BMI 47.12 kg/m? PHYSICAL EXAM: General appearance: pleasant, NAD Mental status: alert and oriented, able to provide own history Constitutional: obese Skin: No visible rashes on exposed skin Neuro: No focal deficits observed, no tremors IMPRESSION: Mónica (obstructive sleep apnea) (primary encounter diagnosis) Nocturnal hypoxia Chronic obstructive pulmonary disease, unspecified copd type (hcc) Moderate smoker (20 or less per day) Dianne Holly is a 72 year old female with PMH of at least moderate MÓNICA, nocturnal hypoxia, COPD, smoker. She wants to use her autoCPAP 13-20 cmH2O with O2 bleed in 1 LPM but she notes excessive phlegm when she uses PAP. PLAN: She would like to try a tra (more content not included)... Normal [facility] CT LUNG SCREEN WO IVCONon CT LUNG SCREEN WO IVCON * * *Final Repor t* * * DATE OF EXAM: Sep 24 2023 12:28PM [facility] 0562 - CT LUNG SCREEN IVCON / PROCEDURE REASON: multiple diagnoses * * * * Physician Interpretation * * * * EXAMINATION: CHEST CT WITHOUT CONTRAST (LOW-DOSE CT LUNG CANCER SCREENING PROTOCOL) CLINICAL HISTORY: Lung cancer LDCT screening ? absence of signs or symptoms of lung cancer. Technique: Spiral CT acquisition of the chest from the thoracic inlet to the upper abdomen without contrast. MQ: [id number]_6 Patient characteristics: * Iyqp-hh-Kioar: 1950; Age at exam: 72 years * Gender: Female * Lung Disease: Asymptomatic (no signs or symptoms of lung disease) * Number of Pack Years: 40 * Current smoker (=0) or Number of Years since Quit: 0 * Ordering provider and NPI: DORIAN KERN [id number] * Interpreting radiologist and NPI: Jonah [id number] Exam acquisition parameters: * Exam Date: 09/24/2023 12:28 PM * Site: [facility] * * CT System Personal Clothing Laundry Aide: Siemens * CT System Model: Sensation * Tube Current-Time (mA-sec): 50 * Peak Voltage (kV): 120V * Scan Time (sec): 10.23 * Scan Volume (z-length, cm): -27.05 * Pitch: 0.75 * Slice Thickness (mm): 1.5 * CT Dose-Length Product: 136 mGy*cm * CT Dose Index: 3.88mGy * CT Dose Reduction Method: Automated exposure control(AEC) and iterative recon COMPARISON: CT 08/20/2022 RESULT: Are nodules present? Yes, 1-5 nodules Lung nodule comments: 2 mm left upper lobe nodule (57). 4 mm left fissural nodule (111). Stable opacity RIGHT upper lobe close to bronchial branch point series 5 image 72. Other findings: Degenerative changes of the thoracic spine. Increased areas of retained secretions/mucus impaction within bilateral lower lobe bronchi with some progression of LEFT lower lobe atelectasis, bronchial thickening, mild upper lobe predominant emphysema. Incidental coronary calcium as automatically processed and calculated using AI: Total Coronary Calcium Score = [100+] Agatston Units Percentile Rank (age and gender matched relative to reference population): [75th-100th] percentile* [* https://www.joy-nhl bi.org/calcium/input .aspx] Localizer images: RIGHT total hip arthroplasty surgery IMPRESSION: LungRADS category: 2 LungRADS modifier: None LungRADS 0 reason: n/a Recommendations: Other actionable findings: Increased retained secretions/mucus impaction within lower lobe airways, mildly increased LEFT lower lobe atelectasis. The possibility of mild/intermittent aspiration is raised. Reference: [employer]. Lung CT Screening Reporting and Data System (Lung-RADS). Available at: http://www.acr.org/Q uality-Safety/Resour shell/LungRADS Crisis Therapist: ONIEL Transcribe Date/Time: Pako 29 2024 11:50A Dictated by : ALEXIS CLEMENTS MD This examination was interpreted and the report reviewed and electronically signed by: ALEXIS CLEMENTS MD on Sep 27 2023 12:00PM EST [id number] CN Normal [facility] 09-17-2023 CNPN Telephone ([facility]) DIANNE HOLLY ([id number]) 1950 F Date Time Provider Department 09/17/23 DEONTE DOUGLAS [facility] During your visit today, we recorded the following information about you: Corby Blanton MA 09/17/2023 11:19 AM Signed Allergies As of Date: 09/17/2023 Noted Allergy Reaction FLAGYL (METRONIDAZOLE HCL) 01/29/2009 9 - Itching 14 - Other: See Comments Comments: nausea/ throat swelling IBUPROFEN 07/04/2012 11 - Vomiting Comments: Hematemesis - [facility] 06/21/2012 NICKEL 11/10/2016 2 - Rash Comments: Can only wear gold earrings Date Reviewed: 08/12/2023 Reviewed by: Dewayne Chung MD - Fully Assessed Reason for Visit: PAP Therapy Follow Up [1285] Prescriptions as of 09/17/2023 - CPAP/BIPAP/OTHER autoCPAP 13-20 cmH2O with 1.5 LPM O2 bleed in D[employer] - verapamil SR (CALAN SR) 180 mg CR tablet Take 1.5 tablets by mouth once daily. - albuterol HFA (PROVENTIL HFA, VENTOLIN HFA) 90 mcg/actuation inhaler Inhale 2 Puffs as instructed every 6 hours as needed. - buPROPion SR (WELLBUTRIN SR) 150 mg 12 hr tablet Take 1 tablet by mouth once daily. - cyanocobalamin (VITAMIN B-12) 1,000 mcg tab Take 1 tablet by mouth once daily. - fluticasone furoate (ARNUITY ELLIPTA) 100 mcg/actuation inhaler Inhale 1 Puff as instructed once daily. Do a quick inhalation prior to brushing teeth. Then brush teeth, rinse, gargle and spit. - lisinopril-hydroCHLO ROthiazide (ZESTORETIC) 20-12.5 mg per tablet Take 2 tablets by mouth once daily. - omeprazole (PRILOSEC) 20 mg capsule Take 1 capsule by mouth once daily. - pravastatin (PRAVACHOL) 40 mg tablet Take 1 tablet by mouth daily at bedtime. - sertraline (ZOLOFT) 100 mg tablet Take 1.5 tablets by mouth every evening. - triamcinolone acetonide (KENALOG) 0.1 % cream Apply 1 application to affected area three times a day. Apply sparingly to area for rash/itching. - solifenacin (VESICARE) 5 mg tablet Take 1 tablet by mouth once daily. - ondansetron orally disintegrating (ZOFRAN ODT) 4 mg disintegrating tablet Take 1 tablet by mouth every 8 hours as needed. - MEDICAL SUPPLY BEDSIDE COMMODE. dx: right total hip replacement. z96.641 - COMPOUNDED PRESCRIPTION Bedside Commode Dx: right total hip replacement Z96.641 Problem List As Of Date 09/17/2023 Noted Resolved Gastroesophageal reflux disease without esophag*11/19/2006 [...] Osteoarthritis of right hip [M16.11] 06/23/2017 06/25/2017 Encounter for Medicare annual wellness exam [Z0*11/23/2017 Screening for osteoporosis [Z13.820] 11/23/2017 Primary ovarian [...] 07/18/2019 Advance directive discussed with patient [Z71.8*05/26/2021 Vitamin B12 deficiency [E53.8] 05/26/2021 Moderate obstructive sleep (more content not included)... Normal [facility] CNOVon 08-11-2023 CNOV Office Visit (FAMPWS) DIANNE HOLLY ([id number]) 1950 F Date Time Provider Department 08/11/23 2:20 PM [facility] During your visit today, we recorded the following information about you: Pulse Respiration Blood pressure Weight 70/minute 18/minute 120/80 120.7 kg Height 1.6 m Dewayne Chung MD 08/12/2023 2:09 PM Signed Dianne Magnolia Holly is a 72 year old female here for a Medicare wellness visit. Medicare Health Risk Assessment General Health Fair Exercise: Minutes/Day 10 min Exercise: Days/Week 3 days Alcohol: Daily Use Never Alcohol: Drinks/Day Patient does not drink Alcohol: 6 or more drinks Never Feel off balance No Concerns: Teeth/Dentures No Concerns: Sexual function No Troubled by feelings None of the above Frequency: Eating healthy diet ADLs requiring help None of the above Safety precautions in home/vehicle No Smoke, vape, chews tobacco Yes, and I might quit Difficulty hearing Yes Difficulty seeing No Current Providers Specialists: I have reviewed specialist-related care of the patient in the medical record. Current care team: Patient Care Team: Dewayne Chung MD as PCP - General (Family Medicine) [facility] Medical/Family history review Reviewed and updated problem list, medical/surgical/fam carmenza/social history, medications, and allergies. Opioid use review Opioid Medications (last 90 days) No data to display Anxiety/Depression screening PHQ-2 Score: 0 (Lower risk for depression) Recommendation: no further intervention at this time Cognitive screening Score: 5 Cognitive screening reviewed and No further action needed (score 3-5). Functional Observation Was the patient's Timed Up AND Go test unsteady or ? 12 seconds? No Advance Care Planning Patient did not wish or was not able to name a surrogate decision maker or provide an advance care plan Measurements BP 120/80 Pulse 70 Resp 18 Ht 5' 3 (1.60m) Wt 266 lb (120.7kg) BMI 47.13 kg/(m2). Vision Screening: Follows with optometry/ophthalmol ogy Assessment/Plan Medicare annual wellness visit, subsequent (Z00.00) - Counseled on healthy diet and regular exercise - Fall avoidance information provided - Personalized prevention plan provided See Below Chief Complaint Patient presents with: Medicare Wellness Exam HPI Dianne Holly is a 72 year old female who presents here today for Chronic Medical Conditions. and Medicare Annual Visit. Patient with hx of HTN, hyperlipidemia, COPD, Depression, GERD, obesity, smoker, BPPV, OA, DDD, OAB, b12 def, and those as below. Patient seeing Neur for MÓNICA last visit 06/2023 Has been doing well. Has some irritation along her right thumb. Past medical history, appointments, medications, allergies reviewed. Previous Medical History PAST MEDICAL HISTORY Diagnosis Date Adenoma of left adrenal gland 12/06/2018 Seen [facility] ER CT 11/28/2018 was stable in size since CT done 11/2015: benign. ADRENAL NODULE 11/17/2007 Anxiety state 11/19/2006 Arthritis Benign neoplasm of colon BPPV (benign paroxysmal positional vertigo) 04/03/2015 Chronic left shoulder pain 09/17/2015 Class 3 severe obesity due to excess calories without serious comorbidity with body mass index (BMI) of 45.0 to 49.9 in adult ([facility]) 06/18/2014 Coronary artery calcification 09/08/[address] 08/2022 DDD (degenerative disc disease), lumbar 01/15/2016 Delayed emergence from general anesthesia Diverticulitis of large intestine without perforation or abscess without bleeding 06/03/2016 Elevated blood sugar 08/07/2023 Emphysema of lung ([facility]) 06/18/2014 Essential hypertension 11/19/2006 Family history of [...] SURGERY HX COLONOSCOPY 07/24/2021 COLONOSCOPY AND POLYPECTOMY 04 (more content not included)... Normal [facility] CBC W Auto Differential pane l (Bld)on 08-10-2023 Basophils (Bld) [#/Vol] 0.06 10*3/uL Normal <0.11 [facility] Comment on above: Order Comment: Speci men Type: BLOOD SPECIMENOrdering Facility: [facility] Address: [address] [place] [address] Performed By: #### 5 7021-8 ####[facility] LABCLIA [id number] [place] [address] [place] Basophils/100 WBC (Bld) 0.7 % Normal [facility] Comment on above: Order Comment: Speci men Type: BLOOD SPECIMENOrdering Facility: [facility] Address: [address] [place] [address] Performed By: #### 5 7021-8 ####[facility] LABCLIA [id number] [place] [address] [place] Differential cell count method Nom (Bld) Auto Normal [facility] Comment on above: Order Comment: Speci men Type: BLOOD SPECIMENOrdering Facility: [facility] Address: [address] [place] [address] Performed By: #### 5 7021-8 ####[facility] LABCLIA [id number] [place] [address] [place] Eosinophils (Bld) [#/Vol] 0.18 10*3/uL Normal <0.46 [facility] Comment on above: Order Comment: Speci men Type: BLOOD SPECIMENOrdering Facility: [facility] Address: [address] [place] [address] Performed By: #### 5 7021-8 ####[facility] LABCLIA [id number] [place] [address] [place] Eosinophils/100 WBC (Bld) 2.1 % Normal [facility] Comment on above: Order Comment: Speci men Type: BLOOD SPECIMENOrdering Facility: [facility] Address: [address] [place] [address] Performed By: #### 5 7021-8 ####[facility] LABCLIA [id number] [place] [address] [place] Erythrocyte distribution width (RBC) [Ratio] 15.0 % Normal 11.5-15.0 [facility] Comment on above: Order Comment: Speci men Type: BLOOD SPECIMENOrdering Facility: [facility] Address: [address] [place] [address] Performed By: #### 5 7021-8 ####[facility] LABCLIA [id number] [place] [address] [place] Hematocrit (Bld) [Volume fraction] 47.6 % High 36.0-46.0 [facility] Comment on above: Order Comment: Speci men Type: BLOOD SPECIMENOrdering Facility: [facility] Address: [address] [place] [address] Performed By: #### 5 7021-8 ####[facility] LABCLIA [id number] [place] [address] [place] Hemoglobin (Bld) [Mass/Vol] 15.2 g/dL Normal 11.5-15.5 [facility] Comment on above: Order Comment: Speci men Type: BLOOD SPECIMENOrdering Facility: [facility] Address: [address] [place] [address] Performed By: #### 5 7021-8 ####[facility] LABCLIA [id number] [place] [address] [place] Immature granulocytes (Bld) [#/Vol] 0.05 10*3/uL Normal <0.10 [facility] Comment on above: Order Comment: Speci men Type: BLOOD SPECIMENOrdering Facility: [facility] Address: [address] [place] [address] Performed By: #### 5 7021-8 ####[facility] LABCLIA [id number] [place] [address] [place] Immature granulocytes/100 WBC (Bld) 0.6 % Normal [facility] Comment on above: Order Comment: Speci men Type: BLOOD SPECIMENOrdering Facility: [facility] Address: [address] [place] [address] Performed By: #### 5 7021-8 ####[facility] LABCLIA [id number] [place] [address] [place] Lymphocytes (Bld) [#/Vol] 2.01 10*3/uL Normal 1.00-4.00 [facility] Comment on above: Order Comment: Speci men Type: BLOOD SPECIMENOrdering Facility: [facility] Address: [address] [place] [address] Performed By: #### 5 7021-8 ####[facility] LABCLIA [id number] [place] [address] [place] Lymphocytes/100 WBC (Bld) 23.5 % Normal [facility] Comment on above: Order Comment: Speci men Type: BLOOD SPECIMENOrdering Facility: [facility] Address: [address] [place] [address] Performed By: #### 5 7021-8 ####[facility] LABIA [id number] [place] [address] [place] MCH (RBC) [Entitic mass] 29.3 pg Normal 26.0-34.0 [facility] Comment on above: Order Comment: Speci men Type: BLOOD SPECIMENOrdering Facility: [facility] Address: [address] [place] [address] Performed By: #### 5 7021-8 ####[facility] LABIA [id number] [place] [address] [place] MCHC (RBC) [Mass/Vol] 31.9 g/dL Normal 30.5-36.0 [facility] Comment on above: Order Comment: Speci men Type: BLOOD SPECIMENOrdering Facility: [facility] Address: [address] [place] [address] Performed By: #### 5 7021-8 ####[facility] LABIA [id number] [place] [address] [place] MCV (RBC) [Entitic vol] 91.7 fL Normal 80.0-100.0 [facility] Comment on above: Order Comment: Speci men Type: BLOOD SPECIMENOrdering Facility: [facility] Address: [address] [place] [address] Performed By: #### 5 7021-8 ####[facility] LABIA [id number] [place] [address] [place] Monocytes (Bld) [#/Vol] 0.75 10*3/uL Normal <0.87 [facility] Comment on above: Order Comment: Speci men Type: BLOOD SPECIMENOrdering Facility: [facility] Address: [address] [place] [address] Performed By: #### 5 7021-8 ####[facility] LABCLIA [id number] [place] [address] [place] Monocytes/100 WBC (Bld) 8.8 % Normal [facility] Comment on above: Order Comment: Speci men Type: BLOOD SPECIMENOrdering Facility: [facility] Address: [address] [place] [address] Performed By: #### 5 7021-8 ####[facility] LABCLIA [id number] [place] [address] [place] Neutrophils (Bld) [#/Vol] 5.49 10*3/uL Normal 1.45-7.50 [facility] Comment on above: Order Comment: Speci men Type: BLOOD SPECIMENOrdering Facility: [facility] Address: [address] [place] [address] Performed By: #### 5 7021-8 ####[facility] LABCLIA [id number] [place] [address] [place] Neutrophils/100 WBC (Bld) 64.3 % Normal [facility] Comment on above: Order Comment: Speci men Type: BLOOD SPECIMENOrdering Facility: [facility] Address: [address] [place] [address] Performed By: #### 5 7021-8 ####[facility] LABCLIA [id number] [place] [address] [place] Nucleated RBC (Bld) [#/Vol] 10*3/uL Normal <0.01 [facility] Comment on above: Order Comment: Speci men Type: BLOOD SPECIMENOrdering Facility: [facility] Address: [address] [place] [address] Performed By: #### 5 7021-8 ####[facility] LABCLIA [id number] [place] [address] [place] Nucleated RBC/100 WBC (Bld) [Ratio] 0.0 /100 WBC Normal [facility] Comment on above: Order Comment: Speci men Type: BLOOD SPECIMENOrdering Facility: [facility] Address: [address] [place] [address] Performed By: #### 5 7021-8 ####[facility] LABIA [id number] [place] [address] [place] Platelet mean volume (Bld) [Entitic vol] 10.2 fL Normal 9.0-12.7 [facility] Comment on above: Order Comment: Speci men Type: BLOOD SPECIMENOrdering Facility: [facility] Address: [address] [place] [address] Performed By: #### 5 7021-8 ####[facility] LABIA [id number] [place] [address] [place] Platelets (Bld) [#/Vol] 292 10*3/uL Normal 150-400 [facility] Comment on above: Order Comment: Speci men Type: BLOOD SPECIMENOrdering Facility: [facility] Address: [address] [place] [address] Performed By: #### 5 7021-8 ####[facility] LABIA [id number] [place] [address] [place] RBC (Bld) [#/Vol] 5.19 10*6/uL Normal 3.90-5.[address] [facility] Comment on above: Order Comment: Speci men Type: BLOOD SPECIMENOrdering Facility: [facility] Address: [address] [place] [address] Performed By: #### 5 7021-8 ####[facility] LABIA [id number] [place] [address] [place] WBC (Bld) [#/Vol] 8.54 10*3/uL Normal 3.70-11.[address] [facility] Comment on above: Order Comment: Speci men Type: BLOOD SPECIMENOrdering Facility: [facility] Address: [address] [place] [address] Performed By: #### 5 7021-8 ####[facility] LABCLIA [id number] [place] [address] [place] Comprehensive metabolic 2000 panelon 08-10-2023 Albumin [Mass/Vol] 4.5 g/dL Normal 3.9-4.9 [facility] Comment on above: Order Comment: Speci men Type: BLOOD SPECIMENOrdering Facility: [facility] Address: [address] [place] [address] Performed By: #### L IPNF, 62922-7, 66433-5, 3016-3 ####[facility] LABIA [id number] [place] [address] [place] ALP [Catalytic activity/Vol] 73 U/L Normal 34-123 [facility] Comment on above: Order Comment: Speci men Type: BLOOD SPECIMENOrdering Facility: [facility] Address: [address] [place] [address] Performed By: #### L IPNF, 84655-9, 69494-9, 3016-3 ####[facility] LABIA [id number] [place] [address] [place] ALT [Catalytic activity/Vol] 25 U/L Normal 7-38 [facility] Comment on above: Order Comment: Speci men Type: BLOOD SPECIMENOrdering Facility: [facility] Address: [address] [place] [address] Performed By: #### L IPNF, 50478-4, 56260-4, 3016-3 ####[facility] LABIA [id number] [place] [address] [place] Anion gap [Moles/Vol] 15 mmol/L Normal 8-15 [facility] Comment on above: Order Comment: Speci men Type: BLOOD SPECIMENOrdering Facility: [facility] Address: [address] [place] [address] Performed By: #### L IPNF, 57619-7, 33069-8, 3016-3 ####[facility] LABCLIA [id number] [place] [address] [place] AST [Catalytic activity/Vol] 21 U/L Normal 13-35 [facility] Comment on above: Order Comment: Speci men Type: BLOOD SPECIMENOrdering Facility: [facility] Address: [address] [place] [address] Performed By: #### L IPNF, , 31215-7, 3016-3 ####[facility] LABCLIA [id number] [place] [address] [place] Bilirubin [Mass/Vol] 0.7 mg/dL Normal 0.2-1.3 [facility] Comment on above: Order Comment: Speci men Type: BLOOD SPECIMENOrdering Facility: [facility] Address: [address] [place] [address] Performed By: #### L IPNF, , 38629-4, 3016-3 ####[facility] LABCLIA [id number] [place] [address] [place] Calcium [Mass/Vol] 10.2 mg/dL Normal 8.5-10.2 [facility] Comment on above: Order Comment: Speci men Type: BLOOD SPECIMENOrdering Facility: [facility] Address: [address] [place] [address] Performed By: #### L IPNF, , 78129-3, 3016-3 ####[facility] LABCLIA [id number] [place] [address] [place] Chloride [Moles/Vol] 100 mmol/L Normal 98-107 [facility] Comment on above: Order Comment: Speci men Type: BLOOD SPECIMENOrdering Facility: [facility] Address: [address] [place] [address] Performed By: #### L IPNF, , 03652-4, 3015-3 ####[facility] LABCLIA [id number] [facility] [place] [address] [place] CO2 [Moles/Vol] 25 mmol/L Normal 22-30 [facility] Comment on above: Order Comment: Speci men Type: BLOOD SPECIMENOrdering Facility: [facility] Address: [address] [place] [address] Performed By: #### L IPNF, , 72830-0, 6-3 ####[facility] LABCLIA [id number] [place] [address] [place] Creatinine [Mass/Vol] 1.21 mg/dL High 0.58-0.96 [facility] Comment on above: Order Comment: Speci men Type: BLOOD SPECIMENOrdering Facility: [facility] Address: [address] [place] [address] Performed By: #### L IPNF, , , 3 ####[facility] LABIA [id number] [place] [address] [place] Creatinine and Glomerular filtration rate.predicted panel (S/P/Bld) 48 mL/min/1.73m??? Low >=60 [facility] Comment on above: Order Comment: Speci men Type: BLOOD SPECIMENOrdering Facility: [facility] Address: [address] [place] [address] Result Comment: Connie mated Glomerular Filtration Rate (eGFR) is calculated using the 2020 CKD-EPI creatinine equation. This equation utilizes serum creatinine, sex, and age as parameters. The creatinine assay has traceable calibration to isotope dilution-mass spectrometry. Refer to KDIGO guidelines for clinical interpretation. In patients with unstable renal function, e.g. those with acute kidney injury, the eGFR may not accurately reflect actual GFR. Performed By: #### L IPNF, 29563-3, 11088-8, 6-3 ####[facility] LABCLIA [id number] [place] [address] [place] Glucose [Mass/Vol] 87 mg/dL Normal 74-99 [facility] Comment on above: Order Comment: Speci men Type: BLOOD SPECIMENOrdering Facility: [facility] Address: [address] [place] [address] Result Comment: The [place] Diabetes Association (ADA) provides guidance for cutoff values for fasting glucose and random glucose. The ADA defines fasting as no caloric intake for at least 8 hours. Fasting plasma glucose results between 100 to 125 mg/dL indicate increased risk for diabetes (prediabetes). Fasting plasma glucose results greater than or equal to 126 mg/dL meet the criteria for diagnosis of diabetes. In the absence of unequivocal hyperglycemia, results should be confirmed by repeat testing. In a patient with classic symptoms of hyperglycemia or hyperglycemic crisis, random plasma glucose results greater than or equal to 200 mg/dL meet the criteria for diagnosis of diabetes. Reference: Standards of Medical Care in Diabetes 2016, [place] Diabetes Association. Diabetes Care. 2016.39(Suppl 1). Performed By: #### L IPNF, 67390-3, 99388-9, 3016-3 ####[facility] LABCLIA [id number] [place] [address] [place] Potassium [Moles/Vol] 4.3 mmol/L Normal 3.7-5.1 [facility] Comment on above: Order Comment: Speci men Type: BLOOD SPECIMENOrdering Facility: [facility] Address: [address] [place] [address] Performed By: #### L IPNF, 13887-9, 46852-5, 3016-3 ####[facility] LABCLIA [id number] [place] [address] [place] Protein [Mass/Vol] 7.3 g/dL Normal 6.3-8.0 [facility] Comment on above: Order Comment: Speci men Type: BLOOD SPECIMENOrdering Facility: [facility] Address: [address] [place] [address] Performed By: #### L IPNF, 45515-5, 53091-0, 3016-3 ####[facility] LABIA [id number] [address] [address] [place] Sodium [Moles/Vol] 140 mmol/L Normal 136-144 [facility] Comment on above: Order Comment: Speci men Type: BLOOD SPECIMENOrdering Facility: [facility] Address: [address] [place] [address] Performed By: #### L IPNF, 07374-5, 80297-9, 6-3 ####[facility] LABIA [id number] [place] [address] [place] Urea nitrogen [Mass/Vol] 24 mg/dL High 7-21 [facility] Comment on above: Order Comment: Speci men Type: BLOOD SPECIMENOrdering Facility: [facility] Address: [address] [place] [address] Performed By: #### L IPNF, , , 3015-3 ####[facility] [id number] [place] [address] [place] HbA1c (Bld)on 08-10-2023 Average glucose Estimated from glycated hemoglobin (Bld) [Mass/Vol] 120 mg/dL Normal [facility] Comment on above: Order Comment: Speci men Type: BLOOD SPECIMENOrdering Facility: [facility] Address: [address] [place] [address] Result Comment: eAG: (Estimated average glucose) is a calculated value from HgbA1c and is automobile rental representative of the average blood glucose level in the last 2-3 month period. Performed By: #### 5 5454-3 ####[facility] [id number] [place] [address] [place] HbA1c (Bld) [Mass fraction] 5.8 % High 4.3-5.6 [facility] Comment on above: Order Comment: Speci men Type: BLOOD SPECIMENOrdering Facility: [facility] Address: [address] [place], [place] [address] Result Comment: Amer [place] Diabetes Association guidelines indicate that patients with HgbA1c in the range 5.7-6.4% are at increased risk for development of diabetes, and intervention by lifestyle modification may be beneficial. HgbA1c greater or equal to 6.5% is considered diagnostic of diabetes. Performed By: #### 5 5454-3 ####[facility] LABCLIA [id number] [place] [address] [place] LIPID PANEL, NONFASTINGon Cholesterol [Mass/Vol] 163 mg/dL Normal <200 [facility] Comment on above: Order Comment: Speci men Type: BLOOD SPECIMENOrdering Facility: [facility] Address: [address] [place] [address] Result Comment: <200 mg/dL, Desirable 200-239 mg/dL, Borderline high >239 mg/dL, High Performed By: #### L IPNF, 37839-9, 70651-6, 3016-3 ####[facility] LABCLIA [id number] [place] [address] [place] HDL CHOLESTEROL, NF 45 mg/dL Normal >[address] [facility] Comment on above: Order Comment: Speci men Type: BLOOD SPECIMENOrdering Facility: [facility] Address: [address] [place] [address] Result Comment: 40-5 9 mg/dL, Acceptable >59 mg/dL, High: Negative risk factor for coronary heart disease <40 mg/dL, Low: Positive risk factor for coronary heart disease Performed By: #### L IPNF, 01780-6, 27433-0, 3016-3 ####[facility] LABCLIA [id number] [place] [address] [place] LDL CHOLESTEROL, NF 84 mg/dL Normal <[address] [facility] Comment on above: Order Comment: Speci men Type: BLOOD SPECIMENOrdering Facility: [facility] Address: [address] [place] [address] Result Comment: <100 mg/dL, Optimal 100-129 mg/dL, Near optimal/above optimal 130-159 mg/dL, Borderline high 160-189 mg/dL, High >189 mg/dL, Very high Secondary prevention optimal LDL Cholesterol levels are recommended to be < 70 mg/dL Performed By: #### L IPNF, 53656-6, 95298-5, 3016-3 ####[facility] LABCLIA [id number] [address] LDL/HDL RATIO, NF 1.87 mg/dL Normal <2.54 [facility] Comment on above: Order Comment: Barry ivey Type: BLOOD SPECIMENOrdering Facility: [facility] Address: [address] [place] [address] Result Comment: Levi schwartz: 1. National Cholesterol Education Program ATP III Guideline At-A-Glance Quick Desk Reference: National Heart, Lung, and Blood [place]. National Institutes of Health. 2001: NIH Publication No. 01-3305. 2. An International Atherosclerosis Society position paper: global recommendations for the management of dyslipidemia: executive summary, Atherosclerosis. 2014: 232(2):410-413. Performed By: #### L CARLEE, , , 3015-3 ####[facility] LABCLIA [id number] [address] [place] [facility] NON HDL CHOL, NF 118 mg/dL Normal <130 [facility] Comment on above: Order Comment: Barry ivey Type: BLOOD SPECIMENOrdering Facility: [facility] Address: [address] [place] [address] Result Comment: <130 mg/dL, Optimal 130-159 mg/dL, Near optimal/above optimal 160-189 mg/dL, Borderline high 190-219 mg/dL, High >219 mg/dL, Very high Secondary prevention optimal non HDL Cholesterol levels are recommended to be <100 mg/dL Performed By: #### L IPNF, 35763-0, 26419-3, 6-3 ####[facility] LABCLIA [id number] [id number] [address] [place] T CHOL/HDL RATIO NF 3.62 mg/dL Normal <5.[address] [facility] Comment on above: Order Comment: Speci men Type: BLOOD SPECIMENOrdering Facility: [facility] Address: [address] [place] [address] Performed By: #### L IPNF, , 99383-5, 3016-3 ####[facility] LABCLIA [id number] [place] [address] [place] TRIGLYCERIDES, NF 171 mg/dL High <150 [facility] Comment on above: Order Comment: Speci men Type: BLOOD SPECIMENOrdering Facility: [facility] Address: [address] [place] [address] Result Comment: <150 mg/dL, Normal 150-199 mg/dL, Borderline high 200-499 mg/dL, High >499 mg/dL, Very high Performed By: #### L IPNF, , 44875-7, 6-3 ####[facility] LABCLIA [id number] [place] [address] [place] VLDL CHOLESTEROL, NF 34 mg/dL High <30 [facility] Comment on above: Order Comment: Speci men Type: BLOOD SPECIMENOrdering Facility: [facility] Address: [address] [place] [address] Performed By: #### L IPNF, , 55940-7, 6-3 ####[facility] LABCLIA [id number] [place] [address] [place] [facility] Magnesium [Mass/Vol] 2.1 mg/dL Normal 1.7-2.3 [facility] Comment on above: Order Comment: Speci men Type: BLOOD SPECIMENOrdering Facility: [facility] Address: [address] [place] [address] Performed By: #### L IPNF, , 26844-8, 3016-3 ####[facility] LABCLIA [id number] [place] [address] [place] TSH SerPl-aCncon 08-10-2023 TSH Qn 1.400 m[IU]/L Normal 0.270-4.200 [facility] Comment on above: Order Comment: Speci men Type: BLOOD SPECIMENOrdering Facility: [facility] Address: [address] [place] [address] Performed By: #### L IPNF, 36095-9, 67222-9, 3016-3 ####[facility] LABCLIA [id number] [place] [place] [address] [place] Urinalysis complete panel (U )on 08-10-2023 Bacteria LM.HPF (Urine sed) [#/Area] Negative Normal Negative [facility] Comment on above: Order Comment: Speci men Type: URINE SPECIMENOrdering Facility: [facility] Address: [address] [place] [address] Performed By: #### 2 4356-8 ####[facility] LABIA [id number] [place] [address] [place] Bilirubin Ql (U) Negative Normal Negative [facility] Comment on above: Order Comment: Speci men Type: URINE SPECIMENOrdering Facility: [facility] Address: [address] [place] [address] Performed By: #### 2 4356-8 ####[facility] LABIA [id number] [place] [address] [place] Clarity (Unsp spec) Clear Normal Clear [facility] Comment on above: Order Comment: Speci men Type: URINE SPECIMENOrdering Facility: [facility] Address: [address] [place] [address] Performed By: #### 2 4356-8 ####[facility] LABIA [id number] [place] [address] [place] Color (U) Yellow Normal Yellow [facility] Comment on above: Order Comment: Speci men Type: URINE SPECIMENOrdering Facility: [facility] Address: [address] [place] [address] Performed By: #### 2 4356-8 ####[facility] LABCLIA [id number] [address] [place] Epithelial cells LM.HPF (Urine sed) [#/Area] None Seen Normal [facility] Comment on above: Order Comment: Speci men Type: URINE SPECIMENOrdering Facility: [facility] Address: [address] [place] [address] Performed By: #### 2 4356-8 ####[facility] LABCLIA [id number] [place] [address] [place] Glucose Test strip (U) [Mass/Vol] Negative Normal Negative [facility] Comment on above: Order Comment: Speci men Type: URINE SPECIMENOrdering Facility: [facility] Address: [address] [place] [address] Performed By: #### 2 4356-8 ####[facility] LABCLIA [id number] [place] [address] [place] Hemoglobin Ql (U) Negative Normal Negative [facility] Comment on above: Order Comment: Speci men Type: URINE SPECIMENOrdering Facility: [facility] Address: [address] [place] [address] Performed By: #### 2 4356-8 ####[facility] LABCLIA [id number] [place] [address] [place] Hyaline casts (Urine sed) [#/Area] 0 /[LPF] Normal 0 /LPF [facility] Comment on above: Order Comment: Speci men Type: URINE SPECIMENOrdering Facility: [facility] Address: [address] [place] [address] Performed By: #### 2 4356-8 ####[facility] LABCLIA [id number] [place] [address] [place] Ketones Ql (U) Negative Normal Negative [facility] Comment on above: Order Comment: Speci men Type: URINE SPECIMENOrdering Facility: [facility] Address: [address] [place] [address] Performed By: #### 2 4356-8 ####[facility] LABCLIA [id number] [place] [address] [place] Leukocyte esterase Test strip Ql (U) 1+ Abnormal Negative [facility] Comment on above: Order Comment: Speci men Type: URINE SPECIMENOrdering Facility: [facility] Address: [address] [place] [address] Performed By: #### 2 4356-8 ####[facility] LABCLIA [id number] [place] [address] [place] Nitrite Ql (U) Negative Normal Negative [facility] Comment on above: Order Comment: Speci men Type: URINE SPECIMENOrdering Facility: [facility] Address: [address] [place] [address] Performed By: #### 2 4356-8 ####[facility] LABCLIA [id number] [place] [address] [place] pH (U) 7.0 [pH] Normal <8.5 [facility] Comment on above: Order Comment: Speci men Type: URINE SPECIMENOrdering Facility: [facility] Address: [address] [place] [address] Performed By: #### 2 4356-8 ####[facility] LABIA [id number] [place] [address] [place] Protein (U) [Mass/Vol] Negative Normal Negative [facility] Comment on above: Order Comment: Speci men Type: URINE SPECIMENOrdering Facility: [facility] Address: [address] [place] [address] Performed By: #### 2 4356-8 ####[facility] LABIA [id number] [place] [address] [place] RBC LM.HPF (Urine sed) [#/Area] 0-2 /HPF Normal 0-2 /HPF [facility] Comment on above: Order Comment: Speci men Type: URINE SPECIMENOrdering Facility: [facility] Address: [address] [place] [address] Performed By: #### 2 4356-8 ####[facility] LABIA [id number] [place] [address] [place] Specific gravity (U) [Rel density] 1.011 Normal 1.005-1.030 [facility] Comment on above: Order Comment: Speci men Type: URINE SPECIMENOrdering Facility: [facility] Address: [address] [place] [address] Performed By: #### 2 4356-8 ####[facility] [id number] [place] [address] [place] Urobilinogen Ql (U) 0.2 EU/dL Normal 0.2-1.0 EU/dL [facility] Comment on above: Order Comment: Speci men Type: URINE SPECIMENOrdering Facility: [facility] Address: [address] [place] [address] Performed By: #### 2 4356-8 ####[facility] LABIA [id number] [place] [address] [place] WBC LM.HPF (Urine sed) [#/Area] 0-5 /HPF Normal 0-5 /HPF [facility] Comment on above: Order Comment: Speci men Type: URINE SPECIMENOrdering Facility: [facility] Address: [address] [place] [address] Performed By: #### 2 4356-8 ####[facility] LABIA [id number] [address] [place] [address] [place] Vit B12 SerPl-mCncon 08-09-2 024 Cobalamin (Vitamin B12) [Mass/Vol] 726 pg/mL Normal 232-1245 [facility] Comment on above: Order Comment: Speci men Type: BLOOD SPECIMENOrdering Facility: [facility] Address: [address] [place] [address] Performed By: #### 2 132-9 ####[facility] LABCLIA [id number] [facility]ody [facility] [place] [address] [place] CNPNon 08-06-2023 CNPN Telephone (FAMWS) DIANNE HOLLY ([id number]) 1950 F Date Time Provider Department 08/06/23 DEWAYNE CHUNG [facility] During your visit today, we recorded the following information about you: Joya Figueroa 08/06/2023 1:37 PM Signed Please submit and notify patient of necessary lab orders for upcoming wellness exam with PCP on 08/11/23. Dewayne Chung MD 08/07/2023 10:30 PM Signed Let patient know blood work and a UA were ordered. No need to fast. Carl Bryant MA 08/09/2023 8:40 AM Signed Left detailed message for patient. Carl Bryant MA Allergies As of Date: 08/06/2023 Noted Allergy Reaction FLAGYL (METRONIDAZOLE HCL) 01/29/2009 9 - Itching 14 - Other: See Comments Comments: nausea/ throat swelling IBUPROFEN 07/04/2012 11 - Vomiting Comments: Hematemesis - [facility] 06/21/2012 NICKEL 11/10/2016 2 - Rash Comments: Can only wear gold earrings Date Reviewed: 07/19/2023 Reviewed by: Carolin Valencia LPN - Fully Assessed Reason for Visit: Lab Orders [1688] Primary Visit Diagnosis:Gastroesop hageal reflux disease without esophagitis [K21.9] Other Visit Diagnoses:Anxiety state [F41.1] Essential hypertension [I10] Mixed hyperlipidemia [E78.2] Vitamin B12 deficiency [E53.8] Medication management [Z79.899] Elevated blood sugar [R73.9] Order(s):VITAMIN B12 [SQB12] Order #: [id number] FUTURE COMPREHENSIVE METABOLIC PANEL [SQCMP] Order #: [id number] FUTURE THYROID STIMULATING HORMONE [SQTSH] Order #: [id number] FUTURE URINALYSIS, WITH MICROSCOPIC [SQUAWMIC] Order #: [id number] FUTURE MAGNESIUM [SQMG1] Order #: [id number] FUTURE LIPID PANEL, NONFASTING [SQLIPNF] Order #: [id number] FUTURE COMPLETE BLOOD COUNT AND DIFFERENTIAL [SQCBCDIF] Order #: [id number] FUTURE HEMOGLOBIN A1C [TXHOE3V] Order #: [id number] FUTURE Prescriptions as of 08/09/2023 - benzonatate (TESSALON PERLES) 100 mg capsule Take 2 capsules by mouth three times a day as needed. - CPAP/BIPAP/OTHER autoCPAP 13-20 cmH2O with 1.5 LPM O2 bleed in DME [employer] - verapamil SR (CALAN SR) 180 mg CR tablet Take 1.5 tablets by mouth once daily. - albuterol HFA (PROVENTIL HFA, VENTOLIN HFA) 90 mcg/actuation inhaler Inhale 2 Puffs as instructed every 6 hours as needed. - buPROPion SR (WELLBUTRIN SR) 150 mg 12 hr tablet Take 1 tablet by mouth once daily. - cyanocobalamin (VITAMIN B-12) 1,000 mcg tab Take 1 tablet by mouth once daily. - fluticasone furoate (ARNUITY ELLIPTA) 100 mcg/actuation inhaler Inhale 1 Puff as instructed once daily. Do a quick inhalation prior to brushing teeth. Then brush teeth, rinse, gargle and spit. - lisinopril-hydroCHLO ROthiazide (ZESTORETIC) 20-12.5 mg per tablet Take 2 tablets by mouth once daily. - omeprazole (PRILOSEC) 20 mg capsule Take 1 capsule by mouth once daily. - pravastatin (PRAVACHOL) 40 mg tablet Take 1 tablet by mouth daily at bedtime. - sertraline (ZOLOFT) 100 mg tablet Take 1.5 tablets by mouth every evening. - triamcinolone acetonide (KENALOG) 0.1 % cream Apply 1 application to affected area three times a day. Apply sparingly to area for rash/itching. - solifenacin (VESICARE) 5 mg tablet Take 1 tablet by mouth once daily. - ondansetron orally disintegrating (ZOFRAN ODT) 4 mg disintegrating tablet Take 1 tablet by mouth every 8 hours as needed. - MEDICAL SUPPLY BEDSIDE COMMODE. dx: right total hip replacement. z96.641 - COMPOUNDED PRESCRIPTION Bedside Commode Dx: right total hip replacement Z96.641 Problem List As Of Date 08/06/2023 Noted Resolved Gastroesophageal reflux disease without esophag*11/19/2006 [...] [M25.512, G89.29] 09/17/2015 Osteoarthritis of lumbar spine [M47.8 (more content not included)... Normal [facility] CNOVon 07-19-2023 CNOV Office Visit (SLEWST) DIANNE HOLLY ([id number]) 1950 F Date Time Provider Department 07/19/23 10:30 AM DEONTE DOUGLAS During your visit today, we recorded the following information about you: Pulse Respiration Blood pressure Weight 80/minute 18/minute 120/78 121.2 kg Deonte Douglas APRN.CNP 07/19/2023 11:05 AM Signed [facility] Follow up/ Established patient visit Date of last visit : 03/26/2023 The following Impression/Plan was copied and pasted from the patient's last Sleep Disorders Center visit on 03/26/23: IMPRESSION: Mónica (obstructive sleep apnea) (primary encounter diagnosis) Dianne Holly is a 72 year old female with at least moderate MÓNICA. Was doing well with PAP but for the past 2 wks she c/o phlegm, awakes choking, feels she needs heat and humidity adjusted but doesn't know how, didn't bring PAP with her today. We reviewed her nocturnal oximetry report. I reviewed her case with Dr Bell. PLAN: - Continue Auto CPAP at 13-20 cmH2O. - Will try increasing oxygen bleed in to 1.5 LPM - Ask [employer] to help her adjust heat/humidity - See if these changes help her tolerate PAP - If not then get bilevel titration (at [facility]) - Remember to clean your mask and equipment regularly, as directed. - You should be eligible for new supplies approximately every 3-6 months, depending on your insurance coverage. Contact your Durable Medical Equipment (DME) company for new supplies as needed. - Follow up in 2 mos Deonte Douglas APRN.HARMONIC ANALYST Here for follow up for MÓNICA Increasing oxygen didn't help Had to take a break from PAP due to respiratory infection She has always slept with her dentures in, they are loose, wonders if they are a problem, so now sleeping without the dentures, is able to use PAP for 3-4 hrs now (with is increased from 1-2 hrs) Reports benefits if she uses PAP for 4 hrs SLEEP APNEA Sleep apnea type : MÓNICA, Most Recent Apnea-Hypopnea Index (AHI): 26 on HSAT in 06/2022 Treatment : PAP therapy DME: [employer] PAP History: Current PAP settin-20 cm H2O with 1.5 LPM O2 Reviewed objective PAP compliance data: Mask type: full face mask Mask issues: none There is a perceived benefit by the patient: no naps, more energy when she uses it for 4 hrs SLEEP HYGIENE QUESTIONS: Bedtime : 2-3 am Number of times patient wakes up per night : 3x for urination (w/o PAP) Estimated total sleep time ( in a 24 hour period of time) : 5-6 Naps : unintentional when not using PAP PATIENT-ENTERED QUESTIONNAIRE SLEEP SCORES 11/09/2016 06/15/2022 PHQ-9 Score 9 9 09/21/2016 11/09/2016 11/09/2016 PROMIS Global Health - (T-Scores - the mean of general population = 50. Five points is a clinically meaningful difference.) Physical T-Score 32.4 32.4 Mental T-Score 38.8 36.3 36.3 ALLERGIES Allergen Reactions Flagyl [Metronidazo* Itching, Other: See Comments nausea/ throat swelling Ibuprofen Vomiting Hematemesis - [facility] 06/21/2012 Nickel Rash Can only wear gold earrings CURRENT MEDICATIONS: CPAP/BIPAP/OTHER autoCPAP 13-20 cmH2O with 1.5 LPM O2 bleed in DME [employer] verapamil SR (CALAN SR) 180 mg CR tablet Take 1.5 tablets by mouth once daily. albuterol HFA (PROVENTIL HFA, VENTOLIN HFA) 90 mcg/actuation inhaler Inhale 2 Puffs as instructed every 6 hours as needed. buPROPion SR (WELLBUTRIN SR) 150 mg 12 hr tablet Take 1 tablet by mouth once daily. cyanocobalamin (VITAMIN B-12) 1,000 mcg tab Take 1 tablet by mouth once daily. fluticasone furoate (ARNUITY ELLIPTA) 100 mcg/actuation inhaler Inhale 1 Puff as instructed once daily. Do a quick inhalation prior to brushing teeth. Then brush teeth, rinse, gargle and spit. lisinopril-hydroCHLO ROthiazide (ZESTORETIC) 20-12.5 mg per tablet Take 2 tablets by mouth once daily. omeprazole (PRILOSEC) 20 mg capsule Take 1 capsule by mouth once daily. pravastatin (PRAVACHOL) 40 mg tablet Take 1 tablet by mouth daily at bedtime. sertraline (ZOLOFT) 100 mg tablet Take 1.5 tablets by mouth every evening. triamcinolone acetonide (KENALOG) 0.1 % cream Apply 1 application to affected area three times a day. Apply sparingly to area for rash/itching. solifenacin (VESICARE) 5 mg tablet Take 1 tablet by mouth once daily. ondansetron orally disintegrating (ZOFRAN ODT) 4 mg disintegrating tablet Take 1 tablet by mouth every 8 hours as needed. MEDICAL SUPPLY BEDSIDE COMMODE. dx: right total hip replacement. z96.641 COMPOUNDED PRESCRIPTION Bedside Commode Dx: right total hip replacement Z96.641 benzonatate (TESSALON PERLES) 100 mg capsule Take 2 capsules by mouth three times a day as needed. (Patient not taking: Reported on 07/19/2023) PHYSICAL EXAMINATION: Vital Signs: BP 120/78 Pulse 80 Resp 18 Wt 1 (more content not included)... Normal [facility] 07-14-2023 CNPN Telephone ([facility]) DIANNE HOLLY ([id number]) 1950 F Date Time Provider Department 07/14/23 DEONTE DOUGLAS [facility] During your visit today, we recorded the following information about you: Corby Blanton MA 07/14/2023 11:47 AM Signed Allergies As of Date: 07/14/2023 Noted Allergy Reaction FLAGYL (METRONIDAZOLE HCL) 01/29/2009 9 - Itching 14 - Other: See Comments Comments: nausea/ throat swelling IBUPROFEN 07/04/2012 11 - Vomiting Comments: Hematemesis - [facility] 06/21/2012 NICKEL 11/10/2016 2 - Rash Comments: Can only wear gold earrings Date Reviewed: 05/02/2023 Reviewed by: Flory Kraus MA - Fully Assessed Reason for Visit: PAP Therapy Follow Up [1285] Cmt: 06/14/23 - 07/13/23 Prescriptions as of 07/14/2023 - benzonatate (TESSALON PERLES) 100 mg capsule Take 2 capsules by mouth three times a day as needed. - CPAP/BIPAP/OTHER autoCPAP 13-20 cmH2O with 1.5 LPM O2 bleed in DME [employer] - verapamil SR (CALAN SR) 180 mg CR tablet Take 1.5 tablets by mouth once daily. - albuterol HFA (PROVENTIL HFA, VENTOLIN HFA) 90 mcg/actuation inhaler Inhale 2 Puffs as instructed every 6 hours as needed. - buPROPion SR (WELLBUTRIN SR) 150 mg 12 hr tablet Take 1 tablet by mouth once daily. - cyanocobalamin (VITAMIN B-12) 1,000 mcg tab Take 1 tablet by mouth once daily. - fluticasone furoate (ARNUITY ELLIPTA) 100 mcg/actuation inhaler Inhale 1 Puff as instructed once daily. Do a quick inhalation prior to brushing teeth. Then brush teeth, rinse, gargle and spit. - lisinopril-hydroCHLO ROthiazide (ZESTORETIC) 20-12.5 mg per tablet Take 2 tablets by mouth once daily. - omeprazole (PRILOSEC) 20 mg capsule Take 1 capsule by mouth once daily. - pravastatin (PRAVACHOL) 40 mg tablet Take 1 tablet by mouth daily at bedtime. - sertraline (ZOLOFT) 100 mg tablet Take 1.5 tablets by mouth every evening. - triamcinolone acetonide (KENALOG) 0.1 % cream Apply 1 application to affected area three times a day. Apply sparingly to area for rash/itching. - solifenacin (VESICARE) 5 mg tablet Take 1 tablet by mouth once daily. - ondansetron orally disintegrating (ZOFRAN ODT) 4 mg disintegrating tablet Take 1 tablet by mouth every 8 hours as needed. - MEDICAL SUPPLY BEDSIDE COMMODE. dx: right total hip replacement. z96.641 - COMPOUNDED PRESCRIPTION Bedside Commode Dx: right total hip replacement Z96.641 Problem List As Of Date 07/14/2023 Noted Resolved Gastroesophageal reflux disease without esophag*11/19/2006 [...] bladder [N32.81] 01/16/2019 Medication management [Z79.899] 07/18/2019 Adva (more content not included)... Normal [facility] Urine Cultureon 05-31-2023 URC Escherichia coli [place] Count >100,000 Escherichia coli: REACTION Ampicillin Islt MLYES >=32 R Ampicillin+Sulbac Islt MYLES 4 S ceFAZolin Islt MYLES <=4 S Cefepime Islt MYLES <=0.12 S cefTRIAXone Islt MYLES <=0.25 S Ciprofloxacin Islt MYLES <=0.25 S Ertapenem Islt MYLES <=0.12 S B-Lactamase Extended Susc Islt NEG Gentamicin Islt MYLES <=1 S Imipenem Islt MYLES <=0.25 S levoFLOXacin Islt MYLES <=0.12 S Nitrofurantoin Islt MYLES <=16 S Pip+Tazo Islt MYLES <=4 S Tobramycin Islt MYLES <=1 S TMP SMX Islt MYLES <=20 S Normal [facility] Comment on above: Performed By: #### M 100.2200 #### [facility] Laboratory [address] [place], [address] Abdomen/Pelvis W IV Cont ONL Yon 05-29-2023 Abdomen/Pelvis W IV Cont ONLY [facility] Imaging Services [address] [place] [address] Abdomen/Pelvis W IV Cont ONLY MR#: [id number] Acct: [id number] Name: DIANNE HOLLY Rep #: [id number] : 1950 F 72 From: Alexis Schneider DO PCP: Dr. Dewayne Chung MD Status: REG ER Study: Abdomen/Pelvis W IV Cont ONLY Date of Exam: Exam# [id number] Ordering Dr: Sharita Salinas [id number] INDICATION: LLQ pain EXAMINATION: CT ABDOMEN AND PELVIS WITH CONTRAST - CT Abdomen And Pelvis W/ Contrast Injection TECHNIQUE: Helically acquired images were obtained of the abdomen and pelvis following IV contrast. A radiation dose optimization technique was used for this scan. IV Contrast dosage and agent: 100 mL Isovue-370 Oral contrast: None. COMPARISON: CT abdomen and pelvis November 28, 2018. ____ FINDINGS: LOWER CHEST: Mild dependent atelectasis. No cardiomegaly or pericardial effusion. Coronary artery calcifications are visible. Distal esophagus is normal. LIVER: Villatoro normal density, smooth contour and normal size. No focal mass. GALLBLADDER AND BILIARY TREE: No calcified gallstones. No gallbladder distension or wall edema. No intra- or extrahepatic biliary ductal dilation. PANCREAS: No focal cystic or solid mass. SPLEEN: Normal size without focal cystic or solid mass. ADRENAL GLANDS: 2.7 x 3.5 x 3.3 cm left adrenal nodule not significantly changed compared to prior exam from 2019. Given stability, no follow-up indicated based on ACR incidental adrenal nodule guidelines. KIDNEYS, URETERS and BLADDER: 8-10 hypodensities seen in the right kidney and in the left kidney. Largest hypodensity in the right kidney measures up to 6 cm, unchanged compared to prior exam. These show less than 20 Hounsfield units, consistent with simple cysts, or are too small to characterize with no follow-up indicated. There are however, two ,roughly 1 cm exophytic hyperdense lesions indeterminate lesions mid right kidney. These are grossly unchanged in appearance compared to prior exam from 2019 highly suggestive of benign lesions. No hydronephrosis. Bladder is unremarkable. PERITONEUM: No ascites or free air. No other fluid collection. BOWEL: No evidence of acute appendicitis. No abnormally distended bowel loops or air fluid levels. No wall thickening or mass. Extensive diverticuli are seen throughout the sigmoid and descending colon. There is area of focal inflammatory changes mid descending colon consistent with diverticulitis. No focal fluid. No focal air. LYMPH NODES: No enlarged mesenteric or retroperitoneal lymph nodes. VESSELS: 3.0 x 3.8 cm fusiform dilation infrarenal abdominal aorta. Scattered abdominal aortic intimal calcifications. No stenosis. REPRODUCTIVE ORGANS: Absent or atrophic. ABDOMINAL WALL: No discrete abdominal or pelvic wall hernia. BONES: No lytic or blastic abnormality. Status post total hip arthroplasty on the right. No evidence of complication. Significant lateral curvature lumbar spine, likely degenerative. CT/Abdomen/Pelvis W IV Cont ONLY IMPRESSION: 1. Acute diverticulitis involving the mid descending colon. No focal fluid or free air. 2. 2.7 x 3.5 x 3.3 cm adrenal nodule not significantly changed dating back to 2019. 3. Mild fusiform dilation infrarenal abdominal aorta; 3.0 x 3.8 cm. 4. Numerous renal cysts and indeterminate homogenous hypodensities which no follow-up is indicated. 2 right hyperdense renal lesions likely representing hemorrhagic cysts, roughly 1 cm in size, unchanged compared with 2019 exam. Electronically Signed: Alexis Schneider DO at 20:52 EDT , CC: Dr. Dewayne Chung MD; CL[facility] Therapist: Signed Normal [facility] Absolute lymphocyte countOrd ered By: Sharita Salinas on 05-29-2023 Lymphocytes Auto (Unsp spec) [#/Vol] 0.89 10*3/uL 0.83-4.51 [facility] Automated lymphocyte count a s percentage of total leukocytesOrdered By: Sharita Salinas on 05-29-2023 Lymphocytes/100 WBC Auto (Unsp spec) 12.6 % 19-41 [facility] Basophil percentageOrdered B y: Sharita Salinas on 05-29-2023 Basophil percentage 0-5 SEEN /hpf 0-5 [facility] Basophils/100 WBC (Bld) 0.4 % 0-1 [facility] Bilirubin [Mass/Vol] 0.60 mg/dL 0.20-1.00 [facility] Comment on above: For patients on eltr ombopag therapy, use of Dimension Williams TBIL is not recommended. Chloride [Moles/Vol] 104 mmol/L 98-107 [facility] Eosinophils/100 WBC (Bld) 0.7 % 0-5 [facility] Glucose [Mass/Vol] 98 mg/dL 74-106 [facility] Hemoglobin (Bld) [Mass/Vol] 14.4 g/dL 12.0-15.0 [facility] Monocytes/100 WBC (Bld) 10.2 % 0-10 [facility] Neutrophils (Bld) [#/Vol] 5.3 10*3/uL 2.0-7.7 [facility] Neutrophils/100 WBC (Bld) 75.7 % 47-70 [facility] Potassium [Moles/Vol] 3.9 mmol/L 3.5-5.1 [facility] Protein [Mass/Vol] 7.4 g/dL 6.4-8.2 [facility] Sodium [Moles/Vol] 136 mmol/L 136-145 [facility] WBC (Bld) [#/Vol] 7.0 10*3/uL 4.4-11.0 [facility] Bilirubin Test strip Ql (U)O rdered By: Sharita Salinas on 05-29-2023 Bilirubin Ql (U) Negative Negative [facility] CBC W/Diff, Automatedon 05-01 Absolute Lymph 0.89 X10 3/uL Normal 0.83-4.51 [facility] Comment on above: Performed By: #### L 501.2450, L100.0100, L500.4050 #### [facility] [address] [place], [address] Absolute Neut 5.3 X10 3/uL Normal 2.0-7.7 [facility] Comment on above: Performed By: #### L 501.2450, L100.0100, L500.4050 #### [facility] [address] [place], [address] Basophils/100 WBC (Bld) 0.4 % Normal 0-1 [facility] Comment on above: Performed By: #### L 501.2450, L100.0100, L500.4050 #### [facility] [address] [place], [address] Eosinophils/100 WBC (Bld) 0.7 % Normal 0-5 [facility] Comment on above: Performed By: #### L 501.2450, L100.0100, [id number] #### [facility] [address] [place], [address] Erythrocyte distribution width (RBC) [Ratio] 14.6 % Normal 11.6-14.6 [facility] Comment on above: Performed By: #### L 501.2450, L100.0100, L500.4050 #### [facility] [address] [place], [address] Hematocrit (Bld) [Volume fraction] 44.1 % Normal 37-47 [facility] Comment on above: Performed By: #### L 501.2450, L100.0100, L500.4050 #### [facility] [address] [facility] [place], [address] Hemoglobin (Bld) [Mass/Vol] 14.4 g/dL Normal 12.0-15.0 [facility] Comment on above: Performed By: #### L 501.2450, L100.0100, L500.4050 #### [facility] [address] [place], [address] IG% 0.400 Normal 0.0-0.9 [facility] Comment on above: Result Comment: IG% - Immature Granulocytes (promyelocytes, myelocytes and metamyelocytes) > 1% indicates that a LEFT SHIFT is Present. Performed By: #### L 501.2450, L100.0100, L500.4050 #### [facility] [address] [place], [address] Lymphocytes/100 WBC (Bld) 12.6 % Low 19-41 [facility] Comment on above: Performed By: #### L 501.2450, L100.0100, L500.4050 #### [facility] [address] [place], [address] MCH (RBC) [Entitic mass] 29.4 pg Normal 27.0-32.0 [facility] Comment on above: Performed By: #### L 501.2450, L100.0100, L500.4050 #### [facility] [address] [place], [address] MCHC (RBC) [Mass/Vol] 32.7 g/dL Normal 32-36 [facility] Comment on above: Performed By: #### L 501.2450, L100.0100, L500.4050 #### [facility] [address] [place], [address] MCV (RBC) [Entitic vol] 90.0 fL Normal 81-99 [facility] Comment on above: Performed By: #### L 501.2450, L100.0100, L500.4050 #### [facility] [address] [place], [address] Monocytes/100 WBC (Bld) 10.2 % High 0-10 [facility] Comment on above: Performed By: #### L 501.2450, L100.0100, L500.4050 #### [facility] [address] [place], [address] Neutrophils/100 WBC (Bld) 75.7 % High 47-70 [facility] Comment on above: Performed By: #### L 501.2450, L100.0100, L500.4050 #### [facility] [address] [place], [address] Nucleated RBC (Bld) [#/Vol] 0 10*3/uL Normal 0-5 [facility] Comment on above: Performed By: #### L 501.2450, L100.0100, L500.4050 #### [facility] [address] [place], [address] Platelet mean volume (Bld) [Entitic vol] 10.5 fL Normal 6.2-12.0 [facility] Comment on above: Performed By: #### L 501.2450, L100.0100, L500.4050 #### [facility] [address] [place], [address] Platelets (Bld) [#/Vol] 255 10*3/uL Normal 150-450 [facility] Comment on above: Performed By: #### L 501.2450, L100.0100, L500.4050 #### [facility] [address] [place], [address] RBC (Bld) [#/Vol] 4.90 10*6/uL Normal 4.2-5.4 [facility] Comment on above: Performed By: #### L 501.2450, L100.0100, L500.4050 #### [facility] [address] [place], [address] RDW SD 48.2 fl High 35.1-43.9 [facility] Comment on above: Performed By: #### L 501.2450, L100.0100, L500.4050 #### [facility] [address] [place], [address] WBC (Bld) [#/Vol] 7.0 10*3/uL Normal 4.4-11.0 [facility] Comment on above: Performed By: #### L 501.2450, L100.0100, L500.4050 #### [facility] [address] [place], [address] Comprehensive Metabolic Prof [facility] 05-29-2023 Albumin [Mass/Vol] 3.7 g/dL Normal 3.2-5.0 [facility] Comment on above: Performed By: #### L 501.2450, L100.0100, L500.4050 #### [facility] [address] [place], [address] Albumin/Globulin [Mass ratio] 1.0 {ratio} Normal 0.9-2.4 [facility] Comment on above: Performed By: #### L 501.2450, L100.0100, L500.4050 #### [facility] [address] [place], [address] ALK P 79 U/L Normal 45-117 [facility] Comment on above: Performed By: #### L 501.2450, L100.0100, L500.4050 #### [facility] [address] [place], [address] ALT [Catalytic activity/Vol] 23 U/L Normal 13-56 [facility] Comment on above: Performed By: #### L 501.2450, L100.0100, L500.4050 #### [facility] [address] [place], [address] AST [Catalytic activity/Vol] 20 U/L Normal 15-37 [facility] Comment on above: Performed By: #### L 501.2450, L100.0100, L500.4050 #### [facility] [address] [place], [address] Bilirubin [Mass/Vol] 0.60 mg/dL Normal 0.20-1.00 [facility] Comment on above: Result Comment: For patients on eltrombopag therapy, use of Dimension Williams TBIL is not recommended. Performed By: #### L 501.2450, L100.0100, L500.4050 #### [facility] [address] [place], [address] BUN/CRE 22.6 RATIO High 10-20 [facility] Comment on above: Performed By: #### L 501.2450, L100.0100, L500.4050 #### [facility] [address] [place], [address] CA,Total 9.2 mg/dL Normal 8.5-10.1 [facility] Comment on above: Performed By: #### L 501.2450, L100.0100, L500.4050 #### [facility] [address] [place], [address] Chloride [Moles/Vol] 104 mmol/L Normal 98-107 [facility] Comment on above: Performed By: #### L 501.2450, L100.0100, L500.4050 #### [facility] [address] [place], [address] CO2 [Moles/Vol] 26.0 mmol/L Normal 21.0-32.0 [facility] Comment on above: Performed By: #### L 501.2450, L100.0100, L500.4050 #### [facility] [address] [place], [address] Creatinine [Mass/Vol] 1.15 mg/dL High 0.55-1.02 [facility] Comment on above: Result Comment: The validity of the calculated GFR GFRAA in patients over 70 years has not been determined. Clinical correlation is essential. Performed By: #### L 501.2450, L100.0100, L500.4050 #### [facility] [address] [place], [address] ECRCL 58.79 ml/min Normal [facility] Comment on above: Performed By: #### L 501.2450, L100.0100, L500.4050 #### [facility] [address] [place], [address] EST GFR - AA 60 mL/min Normal >60 [facility] Comment on above: Result Comment: Afri can [place] GFR Calc Performed By: #### L 501.2450, L100.0100, L500.4050 #### [facility] [address] [place], [address] GAP 6 Normal 5-15 [facility] Comment on above: Performed By: #### L 501.2450, L100.0100, L500.4050 #### [facility] [address] [place], [address] GFR/1.73 sq M.predicted among non-blacks MDRD (S/P/Bld) [Vol rate/Area] 49 mL/min/{1.73_m2} Low >60 [facility] Comment on above: Result Comment: Non- GFR Calc Performed By: #### L 501.2450, L100.0100, L500.4050 #### [facility] [address] [place], [address] Globulin (S) [Mass/Vol] 3.7 g/dL Normal 2.2-4.2 [facility] Comment on above: Performed By: #### L 501.2450, L100.0100, L500.4050 #### [facility] [address] [place], [address] Glucose [Mass/Vol] 98 mg/dL Normal 74-106 [facility] Comment on above: Performed By: #### L 501.2450, L100.0100, L500.4050 #### [facility] [address] [place], [address] Potassium [Moles/Vol] 3.9 mmol/L Normal 3.5-5.1 [facility] Comment on above: Performed By: #### L 501.2450, L100.0100, L500.4050 #### [facility] [address] [place], [address] Sodium [Moles/Vol] 136 mmol/L Normal 136-145 [facility] Comment on above: Performed By: #### L 501.2450, L100.0100, L500.4050 #### [facility] [address] [place], [address] T PROT 7.4 g/dL Normal 6.4-8.2 [facility] Comment on above: Performed By: #### L 501.2450, L100.0100, L500.4050 #### [facility] [address] [place], [address] Urea nitrogen [Mass/Vol] 26 mg/dL High 7-18 [facility] Comment on above: Performed By: #### L 501.2450, L100.0100, L500.4050 #### [facility] [address] [place], [address] Determination of erythrocyte mean corpuscular volume (MCV)Ordered By: Sharita Salinas on 05-29-2023 MCV (RBC) [Entitic vol] 90.0 fL 81-99 [facility] Emergency Department Summary on 05-29-2023 Emergency Department Summary [facility] Medical Records Department [address] [place] [address] Emergency Department Summary 05/29/23 MR#: [id number] Acct: [id number] Name: DIANNE HOLLY Rep #: [id number] : 1950 72 From: Douglas Peck DO PCP: Dr. Dewayne Chung MD Status:DEP ER Location: ED HPI HPI - GI History of Present Illness Chief Complaint: Abd Pain Narrative Narrative: Patient presenting today due to nausea and sharp left lower quadrant abdominal pain that she has had intermittently over the past 2 days. She reports a history of diverticulitis and thinks that this feels similar. She reports that over the past few days she has been constipated, she did take MiraLAX yesterday and did have a small bowel movement today. She has had intermittent low-grade fevers over the past 2 days. She denies any history of kidney stones. She denies vomiting, urinary symptoms, melena, and hematochezia. [facility] Medical History COPD (chronic obstructive pulmonary disease) Depression GERD (gastroesophageal reflux disease) History of diverticulitis HTN (hypertension) Home Medications omeprazole 10 mg capsule,delayed release 20 mg PO DAILY GERD 07/31/13 [History Last Taken Unknown] sertraline 100 mg tablet 100 mg PO QHS Depression 07/31/13 [History Last Taken 06/24/17 21:12] Verapamil Hcl [Verapamil Sr] 270 mg PO DAILY blood pressure 06/25/17 [History Last Taken 06/24/17 21:38] bupropion HCl 150 mg tablet,12 hr sustained-release 150 mg PO DAILY Mood 06/25/17 [History Last Taken 06/25/17 08:56] lisinopril 20 mg-hydrochlorothiazi de 12.5 mg tablet (Zestoretic) 1 ea PO DAILY Hypertension 06/25/17 [History Last Taken Unknown] pravastatin 40 mg tablet 40 mg PO QHS Cholestrol 06/25/17 [History Last Taken Unknown] sennosides 8.6 mg tablet (senna) 8.6 mg PO DAILY Bowel movement 06/25/17 [History Last Taken 06/25/17 08:56] tizanidine 4 mg tablet 4 mg PO DAILY Muscle relaxant 06/25/17 [History Last Taken Unknown] nystatin 100,000 unit/gram topical powder (Nyamyc) 1 applic topical BID 07/13/17 [Rx Last Taken Unknown] sennosides 8.6 mg-docusate sodium 50 mg tablet 2 tab PO BID #120 tabs 07/13/17 [Rx Last Taken Unknown] amoxicillin 875 mg-potassium clavulanate 125 mg tablet 1 tab PO BID 10 days #19 tabs 05/29/23 [Rx Last Taken Unknown] hydrocodone-acetamin ophen 5-325mg 5mg-325mg 1 tab PO Q4H PRN PRN Pain 2 days #7 TABLETS 05/29/23 [Rx Last Taken Unknown] ondansetron 4 mg disintegrating tablet 4 mg PO Q8H PRN PRN Nausea #10 tabs 05/29/23 [Rx Last Taken Unknown] Allergy/AdvReac Type Severity Reaction Status Date / Time nickel Allergy Hives Verified 05/29/23 18:17 ibuprofen AdvReac Other Verified 05/29/23 18:17 metronidazole [From Flagyl] AdvReac Swelling Verified 05/29/23 18:17 Surgical History History of total hip replacement Social History household members: none Smoking Status: Current every day smoker tobacco type: cigarettes substance use type: does not use ROS ROS ED Constitutional Constitutional ED: Reports fever(s); Denies chills Cardiovascular Cardiovascular: Denies chest pain or palpitations Respiratory/Chest Respiratory/Chest: Denies cough or dyspnea Gastrointestinal Gastrointestinal: Reports abdominal pain, constipation and nausea; Denies diarrhea, melena or vomiting Genitourinary Genitourinary ED: Denies dysuria, hematuria or urinary urgency Musculoskeletal Musculoskeletal: Denies arthralgias or myalgias Integumentary Denies rash Neurologic Neurologic: Denies weakness EXAM Physical Exam Const Vital Signs: 05/29/23 18:15 05/29/23 18:17 05/29/23 19:30 Temperature 97.9 F 97.9 F Temperature Source Temporal Temporal Pulse Rate 94 94 82 Respiratory Rate 18 18 20 H Blood Pressure 131/99 H 131/99 H 107/76 Blood Pressure Mean 109 109 87 Pulse Ox 93 93 91 Oxygen Delivery Method Room Air Room Air Room Air 05/29/23 20:21 05/29/23 21:14 Temperature 98.8 F Temperature Source Pulse Rate 86 86 Respiratory Rate 22 H 22 H Blood Pressure 153/63 H 153/63 H Blood Pressure Mean 85 93 Pulse Ox 93 93 Oxygen Delivery Method Room Air Positive well nourished, well developed and no apparent distress General Appearance ED: well developed HEENT Reports normocephalic and head/scalp atraumatic Mouth ED: Yes moist mucous membranes normal Eyes PERRL and EOMs intact bilaterally Neck full ROM and supple Chest Wall inspection of chest normal Resp normal respiratory effort and clear to auscultation bilaterally Cardio regular rate and regular rhythm GI soft to palpation, non-distended and no masses GI Narrative: (more content not included)... Normal [facility] Erythrocyte distribution wid th ratioOrdered By: Sharita Salinas on 05-29-2023 Erythrocyte distribution width (RBC) [Ratio] 14.6 % 11.6-14.6 [facility] Erythrocyte distribution wid th standard deviationOrdered By: Sharita Salinas on 05-29-2023 Erythrocyte distribution width (RBC) [Entitic vol] 48.2 fL 35.1-43.9 [facility] Hematocrit Auto (Bld) [Volum e fraction]Ordered By: Sharita Salinas on 05-29-2023 Hematocrit (Bld) [Volume fraction] 44.1 % 37-47 [facility] Immature granulocytes/100 WB C Auto (Bld)Ordered By: Sharita Salinas on 05-29-2023 Immature granulocytes/100 WBC (Bld) 0.400 % 0.0-0.9 [facility] Comment on above: IG% - Immature Granu locytes (promyelocytes, myelocytes and metamyelocytes) > 1% indicates that a LEFT SHIFT is Present. Ketones Test strip Ql (U)Ord ered By: Sharita Salinas on 05-29-2023 Ketones Ql (U) Negative Negative [facility] - Chemistry and C hemistry - challengeOrdered By: Sharita Salinas on 05-29-2023 Albumin/Globulin [Mass ratio] 1.0 {ratio} 0.9-2.4 [facility] ALP [Catalytic activity/Vol] 79 U/L 45-117 [facility] ALT [Catalytic activity/Vol] 23 U/L 13-56 [facility] CO2 [Moles/Vol] 26.0 mmol/L 21.0-32.0 [facility] Globulin (S) [Mass/Vol] 3.7 g/dL 2.2-4.2 [facility] Lipase [Catalytic activity/Vol] 19 U/L 13-75 [facility] Comment on above: Please note:LIPASE r evised reference range effective 22. New Lipase methodology. Expected to produce lower values than the previous assay method. NEW Reference Range: 13 - 75 U/L Urea nitrogen/Creatinine [Mass ratio] 22.6 mg/mg 10-20 [facility] - Hematology and Cell countsOrdered By: Sharita Salinas on 05-29-2023 MCH (RBC) [Entitic mass] 29.4 pg 27.0-32.0 [facility] MCHC (RBC) [Mass/Vol] 32.7 g/dL 32-36 [facility] Nucleated RBC/100 WBC (Bld) [Ratio] 0 % 0-5 [facility] Platelet mean volume (Bld) [Entitic vol] 10.5 fL 6.2-12.0 [facility] Platelets (Bld) [#/Vol] 255 10*3/uL 150-450 [facility] Lipaseon 05-29-2023 Lipase [Catalytic activity/Vol] 19 U/L Normal 13-75 [facility] Comment on above: Result Comment: Endy rodriguez note: LIPASE revised reference range effective 22. New Lipase methodology. Expected to produce lower values than the previous assay method. NEW Reference Range: 13 - 75 U/L Performed By: #### L 501.2450, L100.0100, L500.4050 #### [facility] [address] [place], [address] Mucus LM Ql (Urine sed)Order ed By: Sharita Salinas on 05-29-2023 Mucus Ql (Urine sed) 0 SEEN /hpf [facility] Nitrite Test strip Ql (U)Ord ered By: Sharita Salinas on 05-29-2023 Nitrite Ql (U) Positive Negative [facility] No Panel InformationOrdered By: Sharita Salinas on 05-29-2023 Urine RBC 0-5 SEEN /hpf 0-5 [facility] Estimated Creatinine Clearance Calc 58.79 ml/min [facility] Estimated GFR (MDRD) Amer 60 mL/min >60 [facility] Comment on above: GFR Calc Estimated GFR (MDRD) Non-Af Amer 49 mL/min >60 [facility] Comment on above: Non- GFR Calc Protein Test strip Ql (U)Ord ered By: Sharita Salinas on 05-29-2023 Protein Ql (U) Negative Negative [facility] RBC Auto (Bld) [#/Vol]Ordere d By: Sharita Salinas on 05-29-2023 RBC (Bld) [#/Vol] 4.90 10*6/uL 4.2-5.4 [facility] Serum or plasma calcium anibal urement (mass/volume)Ordered By: Sharita Salinas on 05-29-2023 Calcium [Mass/Vol] 9.2 mg/dL 8.5-10.1 [facility] Serum or plasma creatinine m easurement (mass/volume)Ordered By: Sharita Salinas on 05-29-2023 Creatinine [Mass/Vol] 1.15 mg/dL 0.55-1.02 [facility] Comment on above: The validity of the calculated GFR & GFRAA in patients over 70 years has not been determined. Clinical correlation is essential. Serum or plasma urea nitroge n measurement (mass/volume)Ordered By: Sharita Salinas on 05-29-2023 Urea nitrogen [Mass/Vol] 26 mg/dL 7-18 [facility] Squamous epithelial cells de tection in urine sediment by light microscopyOrdered By: Sharita Salinas on 05-29-2023 Epithelial cells.squamous LM Ql (Urine sed) 0-5 SEEN /hpf 5-10 [facility] Thin prep Papanicolaou smear with manual screeningOrdered By: Sharita Salinas on 05-29-2023 Thin prep Papanicolaou smear with manual screening 3.7 g/dL 3.2-5.0 [facility] Thin prep Papanicolaou smear with manual screening 20 U/L 15-37 [facility] Thin prep Papanicolaou smear with manual screening 6 5-15 [facility] Urinalysis, Completeon 05-28 BACTERIA 1+ /hpf Normal None Seen [facility] Comment on above: Order Comment: CLEAN CATCH Performed By: #### L 400.0001 #### [facility] [address] [place], [address] EPI,SQUAMOUS 0-5 SEEN Normal 5-10 [facility] Comment on above: Order Comment: CLEAN CATCH Performed By: #### L 400.0001 #### [facility] [address] [place], [address] RBC 0-5 SEEN Normal 0-5 [facility] Comment on above: Order Comment: CLEAN CATCH Performed By: #### L 400.0001 #### [facility] [address] [place], [address] WBC 0-5 SEEN Normal 0-5 [facility] Comment on above: Order Comment: CLEAN CATCH Performed By: #### L 400.0001 #### [facility] [address] [place], [address] Mucus Ql (Urine sed) 0 SEEN Normal [facility] Comment on above: Order Comment: CLEAN CATCH Performed By: #### L 400.0001 #### [facility] [address] [place], [address] Urine blood detectionOrdered By: Sharita Salinas on 05-29-2023 RBC Ql (U) 25 /ul Negative [facility] Urine clarityOrdered By: Bucky Salinas on 05-29-2023 Clarity (U) Clear Clear [facility] Urine color determinationOrd ered By: Sharita Salinas on 05-29-2023 Color (U) Yellow Yellow [facility] Urine glucose detectionOrder ed By: Sharita Salinas on 05-29-2023 Glucose Ql (U) Normal mg/dl Normal [facility] Urine leukocyte esterase det ection by dipstickOrdered By: Sharita Salinas on 05-29-2023 Leukocyte esterase Test strip Ql (U) Negative Negative [facility] Urine pHOrdered By: Dannielle Salinas on 05-29-2023 pH (U) 6.5 [pH] 5.0 - 8.0 [facility] Urine sediment bacteria coun t by microscopy (number/high power field)Ordered By: Sharita Salinas on 05-29-2023 Bacteria LM.HPF (Urine sed) [#/Area] 1 /[HPF] None Seen [facility] Urine specific gravity measu rementOrdered By: Sharita Salinas on 05-29-2023 Specific gravity (U) [Rel density] 1.015 1.002-1.030 [facility] Urine urobilinogen measureme ntOrdered By: Sharita Salinas on 05-29-2023 Urobilinogen Ql (U) 1 mg/dl Normal [facility] XR Chest PA and Lateralon IMPRESSION: No acute significant radiographic abnormality. Crisis Therapist: ONIEL Transcribe Date/Time: May 03 2023 12:12P Dictated by : SANJAY MENDEZ MD This examination was interpreted and the report reviewed and electronically signed by: SANJAY MENDEZ MD on May 03 2023 12:22PM [facility] DIVISION OF RADIOLOGY * * *Final Report* * * DATE OF EXAM: May 03 2023 12:06PM WOX [id number] - XR CHEST 2V FRONTAL/LAT / PROCEDURE REASON: Fever, unspecified fever cause * * * * Physician Interpretation * * * * EXAMINATION: CHEST RADIOGRAPH (2 VIEW FRONTAL & LATERAL) CLINICAL HISTORY: Fever, unspecified fever cause MQ: XC2_6 EXAM DATE/TIME: 05/03/2023 12:06 PM COMPARISON: Chest x-ray dated November 16, 2022 RESULT: Lines, tubes, and devices: None. Lungs and pleura: Stable discoid atelectasis versus scarring at the left base. No consolidation. No lung mass. No pleural effusion. No pneumothorax. Cardiomediastinal silhouette: Normal cardiomediastinal silhouette. Bones and soft tissues: Degenerative changes are present within the thoracic spine. DIVISION OF RADIOLOGY Provider, [facility] [place] - 05/03/2023 * * *Final Report* * * DATE OF EXAM: May 03 2023 12:06PM WOX 5291 - XR CHEST 2V FRONTAL/LAT / PROCEDURE REASON: Fever, unspecified fever cause * * * * Physician Interpretation * * * * EXAMINATION: CHEST RADIOGRAPH (2 VIEW FRONTAL & LATERAL) CLINICAL HISTORY: Fever, unspecified fever cause MQ: XC2_6 EXAM DATE/TIME: 05/03/2023 12:06 PM COMPARISON: Chest x-ray dated November 16, 2022 RESULT: Lines, tubes, and devices: None. Lungs and pleura: Stable discoid atelectasis versus scarring at the left base. No consolidation. No lung mass. No pleural effusion. No pneumothorax. Cardiomediastinal silhouette: Normal cardiomediastinal silhouette. Bones and soft tissues: Degenerative changes are present within the thoracic spine. IMPRESSION IMPRESSION: No acute significant radiographic abnormality. Crisis Therapist: [facility] Transcribe Date/Time: May 03 2023 12:12P Dictated by : SANJAY MENDEZ MD This examination was interpreted and the report reviewed and electronically signed by: SANJAY MENDEZ MD on May 03 2023 12:22PM [facility] Radiology Study observation (narrative) [facility] XR Chest PA and LateralOrder ed By: Ccf Provider on 05-03-2023 [facility] INFLUENZA A&B MOLECULAR (POC )on 05-02-2023 Flu A (POCT) Negative Negative [facility] Flu B (POCT) Negative Negative [facility] Procedural Control Valid [facility] Amorphous sediment detection in urine sediment by light microscopyOrdered By: Chon Chaudhry on 03-08-2023 Amorphous sediment LM Ql (Urine sed) 1+ URATE [facility] Basophil percentageOrdered B y: Chon Chaudhry on 03-08-2023 Basophil percentage 0-5 SEEN /hpf 0-5 [facility] Bilirubin Test strip Ql (U)O rdered By: Chon Chaudhry on 03-08-2023 Bilirubin Ql (U) Negative Negative [facility] Culture, urineOrdered By: Grady Chaudhry on 03-08-2023 Bacteria identified Cx Nom (U) Presumptive E. coli [facility] Ketones Test strip Ql (U)Ord ered By: Chon Chaudhry on 03-08-2023 Ketones Ql (U) Negative Negative [facility] Mucus LM Ql (Urine sed)Order ed By: Chon Chaudhry on 03-08-2023 Mucus Ql (Urine sed) 0 SEEN /hpf [facility] Nitrite Test strip Ql (U)Ord ered By: Chon Chaudhry on 03-08-2023 Nitrite Ql (U) Positive Negative [facility] Protein Test strip Ql (U)Ord ered By: Chon Chaudhry on 03-08-2023 Protein Ql (U) 15 mg/dl Negative [facility] Squamous epithelial cells de tection in urine sediment by light microscopyOrdered By: Chon Chaudhry on 03-08-2023 Epithelial cells.squamous LM Ql (Urine sed) 0-5 SEEN /hpf 5-10 [facility] Urine blood detectionOrdered By: Chon Chaudhry on 03-08-2023 RBC Ql (U) 25 /ul Negative [facility] RBC Ql (U) 0-5 SEEN /hpf 0-5 [facility] Urine clarityOrdered By: Aguila Chaudhry on 03-08-2023 Clarity (U) Sl. Cloudy Clear [facility] Urine color determinationOrd ered By: Chon Chaudhry on 03-08-2023 Color (U) Yellow Yellow [facility] Urine glucose detectionOrder ed By: Chon Chaudhry on 03-08-2023 Glucose Ql (U) Normal mg/dl Normal [facility] Urine leukocyte esterase det ection by dipstickOrdered By: Chon Chaudhry on 03-08-2023 Leukocyte esterase Test strip Ql (U) 25 /ul Negative [facility] Urine pHOrdered By: Chon eubanks on 03-08-2023 pH (U) 6.0 [pH] 5.0 - 8.0 [facility] Urine sediment bacteria coun t by microscopy (number/high power field)Ordered By: Chon Chaudhry on 03-08-2023 Bacteria LM.HPF (Urine sed) [#/Area] 2 /[HPF] None Seen [facility] Urine specific gravity measu rementOrdered By: Chon Chaudhry on 03-08-2023 Specific gravity (U) [Rel density] 1.015 1.002-1.030 [facility] Urobilinogen Auto test strip Ql (U)Ordered By: Chon Chaudhry on 03-08-2023 Urobilinogen Ql (U) Normal mg/dl Normal [facility] UA DIP, URINE (POC)on 2022 BILIRUBIN UA (POCT) Negative Negative [facility] CLARITY UA (POCT) Clear [facility] COLOR UA (POCT) Yellow [facility] GLUCOSE UA (POCT) Negative Negative mg/dL [facility] Hemoglobin Ql (U) Trace-intact Abnormal Negative [facility] KETONE UA (POCT) Negative Negative mg/dL [facility] LEUKOCYTES UA (POCT) Trace Abnormal Negative [facility] NITRITE UA (POCT) Negative Negative [facility] PH UA (POCT) 5.5 4.5 - 8.0 [facility] Protein Ql (U) Negative Negative mg/dL [facility] SPECIFIC GRAVITY UA (POCT) 1.015 1.005 - 1.030 [facility] UROBILINOGEN UA (POCT) 0.2 E.U./dL Ana l E.U./dL [facility] No Panel Informationon 11-16 IMPRESSION: No acute radiographic abnormality. Crisis Therapist: ONIEL Transcribe Date/Time: Nov 16 2022 1:53P Dictated by : TIFFANY LOJA MD This examination was interpreted and the report reviewed and electronically signed by: TIFFANY LOJA MD on Nov 16 2022 1:56PM [facility] DIVISION OF RADIOLOGY Radiology Study observation (narrative) [facility] No Panel InformationOrdered By: Ccf Provider on 11-16-2022 [facility] XR Chest PA and Lateralon * * *Final Report* * * DATE OF EXAM: Nov 16 2022 1:52PM WOX 5291 - XR CHEST 2V FRONTAL/LAT / PROCEDURE REASON: Rhonchi * * * * Physician Interpretation * * * * EXAMINATION: X-ray chest, PA and lateral and right ribs Clinical History: Cough for one week. Right-sided chest pain. M: XC1_4 Comparison: Chest x-ray 06/15/2022 RESULT: Lines, tubes, and devices: None. Lungs and pleura: No consolidation. No lung mass. No pleural effusion. Cardiomediastinal silhouette: Normal cardiomediastinal silhouette. Musculoskeletal: No acute fracture. DIVISION OF RADIOLOGY Provider, [facility] [place] - 11/16/2022 * * *Final Report* * * DATE OF EXAM: Nov 16 2022 1:52PM WOX 5291 - XR CHEST 2V FRONTAL/LAT / PROCEDURE REASON: Rhonchi * * * * Physician Interpretation * * * * EXAMINATION: X-ray chest, PA and lateral and right ribs Clinical History: Cough for one week. Right-sided chest pain. M: XC1_4 Comparison: Chest x-ray 06/15/2022 RESULT: Lines, tubes, and devices: None. Lungs and pleura: No consolidation. No lung mass. No pleural effusion. Cardiomediastinal silhouette: Normal cardiomediastinal silhouette. Musculoskeletal: No acute fracture. IMPRESSION IMPRESSION: No acute radiographic abnormality. Crisis Therapist: ONIEL Transcribe Date/Time: Nov 16 2022 1:53P Dictated by : TIFFANY LOJA MD This examination was interpreted and the report reviewed and electronically signed by: TIFFANY LOJA MD on Nov 16 2022 1:56PM EST [facility] XR Ribs - right 2 Viewson * * *Final Report* * * DATE OF EXAM: Nov 16 2022 1:52PM WOX 5585 - XR RIBS 2V AP/OBL RT / PROCEDURE REASON: Rhonchi * * * * Physician Interpretation * * * * EXAMINATION: X-ray chest, PA and lateral and right ribs Clinical History: Cough for one week. Right-sided chest pain. M: XC1_4 Comparison: Chest x-ray 06/15/2022 RESULT: Lines, tubes, and devices: None. Lungs and pleura: No consolidation. No lung mass. No pleural effusion. Cardiomediastinal silhouette: Normal cardiomediastinal silhouette. Musculoskeletal: No acute fracture. DIVISION OF RADIOLOGY Provider, [facility] [place] - 11/16/2022 * * *Final Report* * * DATE OF EXAM: Nov 16 2022 1:52PM WOX 5585 - XR RIBS 2V AP/OBL RT / PROCEDURE REASON: Rhonchi * * * * Physician Interpretation * * * * EXAMINATION: X-ray chest, PA and lateral and right ribs Clinical History: Cough for one week. Right-sided chest pain. M: XC1_4 Comparison: Chest x-ray 06/15/2022 RESULT: Lines, tubes, and devices: None. Lungs and pleura: No consolidation. No lung mass. No pleural effusion. Cardiomediastinal silhouette: Normal cardiomediastinal silhouette. Musculoskeletal: No acute fracture. IMPRESSION IMPRESSION: No acute radiographic abnormality. Crisis Therapist: P[facility]B Transcribe Date/Time: Nov 16 2022 1:53P Dictated by : TIFFANY LOJA MD This examination was interpreted and the report reviewed and electronically signed by: TIFFANY LOJA MD on Nov 16 2022 1:56PM EST [facility] [place] 08-24-2022 CNPN Telephone (PULMJM) DIANNE HOLLY ( ) 1950 F Date Time Provider Department 08/24/22 WILLIANDIOYAZANDORIANRAVIN FERMINJSalma During your visit today, we recorded the following information about you: Dorian Kern APRN.CNP 08/24/2022 4:28 PM Signed Left message for pt to call back regarding results. Dorian Kern APRN.CNP 08/25/2022 3:22 PM Signed Phone call to patient to discuss results LDCT Lung Rads category 2-repeat CT in 12 mos Moderate CAC-recommend PCP/cardiology evaluation-Pt plans to call Dr. Chung. Allergies As of Date: 08/24/2022 Noted Allergy Reaction FLAGYL (METRONIDAZOLE HCL) 01/29/2009 9 - Itching 14 - Other: See Comments Comments: nausea/ throat swelling IBUPROFEN 07/04/2012 11 - Vomiting Comments: Hematemesis - [facility] 06/21/2012 NICKEL 11/10/2016 2 - Rash Comments: Can only wear gold earrings Date Reviewed: 08/07/2022 Reviewed by: Yan Bell Jr., MD - Fully Assessed Reason for Visit: Results [95] Primary Visit Diagnosis:Encounter for screening for lung cancer [Z12.2] Other Visit Diagnosis:Tobacco use current [Z72.0] Order(s):CT LUNG SCREEN WO CHRISTO [[id number]] Order #: [id number] FUTURE Prescriptions as of 08/25/2022 - amoxicillin-clavulan ic acid (AUGMENTIN) 875-125 mg per tablet Take 1 tablet by mouth twice daily. Take 1 tablet every 12 hours - HYDROcodone-acetamin ophen (NORCO) 5-325 mg per tablet Take 1 tablet by mouth four times daily as needed for pain. Take one tablet every 4 hours as needed for pain - fluticasone furoate (ARNUITY ELLIPTA) 100 mcg/actuation [...] 1 tablet by mouth once daily. - lisinopril-hydroCHLO ROthiazide (ZESTORETIC) 20-12.5 mg per tablet Take 2 [...] tablet by mouth daily at bedtime. - ondansetron orally disintegrating (ZOFRAN ODT) 4 mg disintegrating tablet Take 1 tablet by mouth every 8 hours as needed. - albuterol HFA (PROVENTIL HFA, VENTOLIN HFA) 90 mcg/actuation inhaler Inhale 2 Puffs as instructed every 6 hours as needed. - peg 3350-Electrolytes (GOLYTELY) 236-22.74-6.74 -5.86 gram suspension Refer to printed prep instructions from your provider. - triamcinolone acetonide (KENALOG) 0.1 % cream Apply 1 application to affected area three times daily. Apply sparingly to area for rash/itching. - MEDICAL SUPPLY BEDSIDE COMMODE. dx: right total hip replacement. z96.641 - COMPOUNDED PRESCRIPTION Bedside Commode Dx: right total hip replacement Z96.641 Problem List As Of Date 08/24/2022 Noted Resolved Gastroesophageal reflux disease without esophag*11/19/2006 [...] 3, GFR 30-59*03/12/2017 07/28/2017 Vertigo [R42] 06/14/2017 Osteoarthriti (more content not included)... Normal [facility] CT LUNG SCREEN WO IVCONon [facility] Laboratory - Microbiology an d Antimicrobial susceptibilityOrdered By: Dr. Werner on 07-09-2022 Bacteria identified Cx Nom (Bld) No growth in 5 days. [facility] Absolute lymphocyte countOrd ered By: Dr. Werner on 07-04-2022 Lymphocytes Auto (Unsp spec) [#/Vol] 1.66 10*3/uL 0.83-4.51 [facility] Basophil percentageOrdered B y: Dr. Werner on 07-04-2022 Basophils/100 WBC (Bld) 0.7 % 0-1 [facility] Chloride [Moles/Vol] 107 mmol/L 98-107 [facility] Eosinophils/100 WBC (Bld) 1.9 % 0-5 [facility] Glucose [Mass/Vol] 102 mg/dL 74-106 [facility] Comment on above: Fasting Glucose resu lt from 100 to 125 mg/dL suggests IMPAIRED HOMEOSTASIS per A.D.A. criteria. Neutrophils (Bld) [#/Vol] 6.5 10*3/uL 2.0-7.7 [facility] Neutrophils/100 WBC (Bld) 69.4 % 47-70 [facility] Potassium [Moles/Vol] 3.7 mmol/L 3.5-5.1 [facility] Sodium [Moles/Vol] 141 mmol/L 136-145 [facility] WBC (Bld) [#/Vol] 9.4 10*3/uL 4.4-11.0 [facility] Blood erythrocytes count (nu mber/volume)Ordered By: Dr. Werner on 07-04-2022 RBC (Bld) [#/Vol] 4.44 10*6/uL 4.2-5.4 [facility] Blood hemoglobin measurement (mass/volume)Ordered By: Dr. Werner on 07-04-2022 Hemoglobin (Bld) [Mass/Vol] 13.2 g/dL 12.0-15.0 [facility] Blood lymphocytes/100 leukoc ytesOrdered By: Dr. Werner on 07-04-2022 Lymphocytes/100 WBC (Bld) 17.7 % 19-41 [facility] Blood monocytes/100 leukocyt esOrdered By: Dr. Werner on 07-04-2022 Monocytes/100 WBC (Bld) 9.8 % 0-10 [facility] Blood platelet mean volumeOr dered By: Dr. Werner on 07-04-2022 Platelet mean volume (Bld) [Entitic vol] 10.0 fL 6.2-12.0 [facility] Determination of erythrocyte mean corpuscular volume (MCV)Ordered By: Dr. Werner on 07-04-2022 MCV (RBC) [Entitic vol] 93.7 fL 81-99 [facility] Hematocrit Auto (Bld) [Volum e fraction]Ordered By: Dr. Werner on 07-04-2022 Hematocrit (Bld) [Volume fraction] 41.6 % 37-47 [facility] Laboratory - Chemistry and C hemistry - challengeOrdered By: Dr. Werner on 07-04-2022 CO2 [Moles/Vol] 26.0 mmol/L 21.0-32.0 [facility] Urea nitrogen/Creatinine [Mass ratio] 24.5 mg/mg 10-20 [facility] Laboratory - Hematology and Cell countsOrdered By: Dr. Werner on 07-04-2022 Erythrocyte distribution width (RBC) [Entitic vol] 48.9 fL 35.1-43.9 [facility] Erythrocyte distribution width (RBC) [Ratio] 14.1 % 11.6-14.6 [facility] Immature granulocytes/100 WBC (Bld) 0.500 % 0.0-0.9 [facility] Comment on above: IG% - Immature Granu locytes (promyelocytes, myelocytes and metamyelocytes) > 1% indicates that a LEFT SHIFT is Present. MCH (RBC) [Entitic mass] 29.7 pg 27.0-32.0 [facility] Nucleated RBC/100 WBC (Bld) [Ratio] 0 % 0-5 [facility] Laboratory - Microbiology an d Antimicrobial susceptibilityOrdered By: Adan Werner on 07-04-2022 Bacteria identified Cx Nom (Bld) No growth in 5 days. [facility] MCHC Auto (RBC) [Mass/Vol]Or dered By: Dr. Werner on 07-04-2022 MCHC (RBC) [Mass/Vol] 31.7 g/dL 32-36 [facility] No Panel InformationOrdered By: Dr. Werner on 07-04-2022 Estimated Creatinine Clearance Calc 42.45 ml/min [facility] Estimated GFR (MDRD) Amer 69 mL/min >60 [facility] Comment on above: GFR Calc Estimated GFR (MDRD) Non-Af Amer 57 mL/min >60 [facility] Comment on above: Non- GFR Calc Platelets bldOrdered By: Dr. Werner on 07-04-2022 Platelets (Bld) [#/Vol] 317 10*3/uL 150-450 [facility] Serum or plasma calcium anibal urement (mass/volume)Ordered By: Dr. Werner on 07-04-2022 Calcium [Mass/Vol] 9.2 mg/dL 8.5-10.1 [facility] Serum or plasma creatinine m easurement (mass/volume)Ordered By: Dr. Werner on 07-04-2022 Creatinine [Mass/Vol] 1.02 mg/dL 0.55-1.02 [facility] Comment on above: The validity of the calculated GFR & GFRAA in patients over 70 years has not been determined. Clinical correlation is essential. Serum or plasma urea nitroge n measurement (mass/volume)Ordered By: Dr. Werner on 07-04-2022 Urea nitrogen [Mass/Vol] 25 mg/dL 7-18 [facility] Thin prep Papanicolaou smear with manual screeningOrdered By: Dr. Werner on 07-04-2022 Thin prep Papanicolaou smear with manual screening 8 5-15 [facility] CNPNon 06-18-2022 [facility] Telephone ([facility]) AVNIDIANNE J ([id number]) 1950 F Date Time Provider Department 06/18/22 DEWAYNE CHUNG [facility] During your visit today, we recorded the following information about you: Dewayne Chung MD 06/18/2022 11:12 AM Signed Let patient know B12, electrolytes, liver functions, [...] repeat the kidney labs in a week. Carl Bryant MA 06/18/2022 11:40 AM Signed Patient notified and voiced understanding. Carl Bryant MA Allergies As of Date: 06/18/2022 Noted Allergy Reaction FLAGYL (METRONIDAZOLE HCL) 01/29/2009 9 - Itching 14 - Other: See Comments Comments: nausea/ throat swelling IBUPROFEN 07/04/2012 11 - Vomiting Comments: Hematemesis - [facility] 06/21/2012 [facility] 11/10/2016 2 - Rash Comments: Can only wear gold earrings Date Reviewed: 06/15/2022 Reviewed by: Dewayne Chung MD - Fully Assessed Reason for Visit: Results [95] Primary Visit Diagnosis:Renal insufficiency [N28.9] Order(s):BASIC METABOLIC PNL [SQBMP] Order #: [id number] FUTURE Prescriptions as of 06/18/2022 - cyanocobalamin (VITAMIN B-12) 1,000 mcg tab Take 1 tablet by mouth once daily. - solifenacin (VESICARE) 5 mg tablet Take 1 tablet by mouth once daily. - buPROPion SR (WELLBUTRIN SR) 150 mg 12 hr tablet Take 1 tablet by mouth once daily. - lisinopril-hydroCHLO ROthiazide (ZESTORETIC) 20-12.5 mg per tablet Take 2 [...] tablet by mouth daily at bedtime. - fluticasone furoate (ARNUITY ELLIPTA) 100 mcg/actuation inhaler Inhale 1 Puff as instructed once daily. Do a quick inhalation prior to brushing teeth. Then brush teeth, rinse, gargle and spit. - ondansetron orally disintegrating (ZOFRAN ODT) 4 mg disintegrating tablet Take 1 tablet by mouth every 8 hours as needed. - albuterol HFA (PROVENTIL HFA, VENTOLIN HFA) 90 mcg/actuation inhaler Inhale 2 Puffs as instructed every 6 hours as needed. - peg 3350-Electrolytes (GOLYTELY) 236-22.74-6.74 -5.86 gram suspension Refer to printed prep instructions from your provider. - triamcinolone acetonide (KENALOG) 0.1 % cream Apply 1 application to affected area three times daily. Apply sparingly to area for rash/itching. - MEDICAL SUPPLY BEDSIDE COMMODE. dx: right total hip replacement. z96.641 - COMPOUNDED PRESCRIPTION Bedside Commode Dx: right total hip replacement Z96.641 Problem List As Of Date 06/18/2022 Noted Resolved Gastroesophageal reflux disease without esophag*11/19/2006 [...] Screening for osteoporosis [Z13.820] 11/23/2017 Primary ovarian failu (more content not included)... Normal [facility] XR Chest PA and Lateralon IMPRESSION: No acute radiographic abnormality. [facility] Transcribe Date/Time: Jun 16 2022 12:22P Dictated by : HARPER PETER MD This examination was interpreted and the report reviewed and electronically signed by: HARPER PETER MD on Jun 16 2022 12:23PM [facility] DIVISION OF RADIOLOGY * * *Final Report* * * DATE OF EXAM: Jun 15 2022 4:33PM WOX 5291 - XR CHEST 2V FRONTAL/LAT / PROCEDURE REASON: Cough, persistent * * * * Physician Interpretation * * * * EXAMINATION: CHEST RADIOGRAPH (2 VIEW FRONTAL & LATERAL) CLINICAL HISTORY: Cough, persistent MQ: XC2_6 EXAM DATE/TIME: 06/15/2022 4:33 PM COMPARISON: 11/07/2020 RESULT: Lines, tubes, and devices: None. Lungs and pleura: No consolidation. No lung mass. No pleural effusion. No pneumothorax. Cardiomediastinal silhouette: Normal cardiomediastinal silhouette. Bones and soft tissues: Degenerative changes throughout the dorsal spine DIVISION OF RADIOLOGY Provider, [facility] [place] - 06/16/2022 * * *Final Report* * * DATE OF EXAM: Jun 15 2022 4:33PM WOX 5291 - XR CHEST 2V FRONTAL/LAT / PROCEDURE REASON: Cough, persistent * * * * Physician Interpretation * * * * EXAMINATION: CHEST RADIOGRAPH (2 VIEW FRONTAL & LATERAL) CLINICAL HISTORY: Cough, persistent MQ: XC2_6 EXAM DATE/TIME: 06/15/2022 4:33 PM COMPARISON: 11/07/2020 RESULT: Lines, tubes, and devices: None. Lungs and pleura: No consolidation. No lung mass. No pleural effusion. No pneumothorax. Cardiomediastinal silhouette: Normal cardiomediastinal silhouette. Bones and soft tissues: Degenerative changes throughout the dorsal spine IMPRESSION IMPRESSION: No acute radiographic abnormality. [facility] Transcribe Date/Time: Jun 16 2022 12:22P Dictated by : HARPER PETER MD This examination was interpreted and the report reviewed and electronically signed by: HARPER PETER MD on Jun 16 2022 12:23PM EST [facility] XR Chest PA and LateralOrder ed By: Ccf Provider on 06-16-2022 [facility] XR Chest PA and Lateralon Radiology Study observation (narrative) [facility] Influenza virus A and B RNA and SARS-CoV-2 (COVID-19) N gene panel DAYANNA+probe (Resp)on 01-07-2022 FLUAV RNA DAYANNA+probe Ql (Unsp spec) Negative Negative for Influenza A by RT-PCR [facility] FLUBV RNA DAYANNA+probe Ql (Unsp spec) Negative Negative for Influenza B by RT-PCR [facility] SARS-CoV-2 (COVID-19) RNA DAYANNA+probe Ql (Resp) SARS-CoV-2 (Agent of COVID-19) Not Detected by RT-PCR or equivalent method. Not Detected [facility] COLONOSCOPY DIAGNOSTICon [facility] DXA-AXIAL SKELETONon 022 [facility] XR Chest PA and Lateralon IMPRESSION: No acute radiographic abnormality is appreciated. Crisis Therap[facility] Transcribe Date/Time: Nov 07 2020 3:30P Dictated by : NAOMY MANE MD This examination was interpreted and the report reviewed and electronically signed by: NAOMY MANE MD on Nov 07 2020 3:34PM EST DIVISION OF RADIOLOGY * * *Final Report* * * DATE OF EXAM: Nov 07 2020 3:29PM WOX 5291 - XR CHEST 2V FRONTAL/LAT / PROCEDURE REASON: Cough * * * * Physician Interpretation * * * * EXAMINATION: CHEST RADIOGRAPH (2 VIEW FRONTAL & LATERAL) CLINICAL HISTORY: Cough MQ: XC2_6 EXAM DATE/TIME: 11/07/2020 3:29 PM COMPARISON: 11/10/2019 RESULT: Lines, tubes, and devices: None. Lungs and pleura: No focal consolidation, significant pleural effusion or pneumothorax. Cardiomediastinal silhouette: Within normal limits. Bones and soft tissues: No acute osseous abnormality. Degenerative changes are present in the thoracic spine. DIVISION OF RADIOLOGY Provider, [facility] [place] - 11/07/2020 * * *Final Report* * * DATE OF EXAM: Nov 07 2020 3:29PM WOX 5291 - XR CHEST 2V FRONTAL/LAT / PROCEDURE REASON: Cough * * * * Physician Interpretation * * * * EXAMINATION: CHEST RADIOGRAPH (2 VIEW FRONTAL & LATERAL) CLINICAL HISTORY: Cough MQ: XC2_6 EXAM DATE/TIME: 11/07/2020 3:29 PM COMPARISON: 11/10/2019 RESULT: Lines, tubes, and devices: None. Lungs and pleura: No focal consolidation, significant pleural effusion or pneumothorax. Cardiomediastinal silhouette: Within normal limits. Bones and soft tissues: No acute osseous abnormality. Degenerative changes are present in the thoracic spine. IMPRESSION IMPRESSION: No acute radiographic abnormality is appreciated. Crisis Therapist: [facility] Transcribe Date/Time: Nov 07 2020 3:30P Dictated by : NAOMY MANE MD This examination was interpreted and the report reviewed and electronically signed by: NAOMY MANE MD on Nov 07 2020 3:34PM EST [facility] Radiology Study observation (narrative) Paulo [place] XR Chest PA and LateralOrder ed By: Ccf Provider on 11-07-2020 [facility] PROGRESSon 11-22-2018 PROGRESS HNO ID: [id number] Author: Shruti (Barb) BARB Lee Service: ? Author Type: Clinical Special Diet Cook Type: Progress Notes Filed: 11/22/2018 2:19 PM Note Text: NAME:Diannecandy Holly DATE: November 22, 2018 [facility]#: [id number] Pelvis X-Ray COMPLETED TECH ID SIGN: SHRUTI LEE [facility] XR PELVIS 1V APon 11-22-2018 XR PELVIS 1V AP * * *Final Report* * * DATE OF EXAM: Nov 22 2018 2:18PM CODY 5239 - XR PELVIS 1V AP / PROCEDURE REASON: M25.551-Pain in right hip * * * * Physician Interpretation * * * * PROCEDURE: Pelvis INDICATION: Pain in right hip .CHECK UP THR--LOW PELVIS TECHNIQUE: XR PELVIS 1V AP COMPARISON: 09/07/2017 FINDINGS: The right total hip arthroplasty remains in satisfactory position without evidence for loosening. Mild heterotopic bone adjacent to the lesser trochanter. Sacroiliac joints and left hip joint are maintained. No fracture. IMPRESSION: Stable right MARTHA Crisis Therapist: ONIEL Transcribe Date/Time: Nov 22 2018 2:21P Dictated by : ANNETTE GAMEZ MD This examination was interpreted and the report reviewed and electronically signed by: ANNETTE GAMEZ MD on Nov 22 2018 2:22PM EST [id number] [facility] Office Visiton 09-15-2016 Protein mass conc Done [facility] Work Phone: Tobacco smoking status NHIS Current every day smoker [facility] Work Phone: Vital Signs Date Time Vital Sign Value Performing Clinician Facility 04-26-2024 13:26-0500 Body mass index (BMI) [Ratio] 46.94 kg/m2 Deonte Douglas APRN.HARMONIC ANALYST Work Phone: [facility] 04-26-2024 13:26-0500 Body weight 120.2 kg Deonte Douglas APRN.CNP Work Phone: [facility] 04-26-2024 13:26-0500 Diastolic blood pressure 61 mm[Hg] Deonte Douglas APRN.CNP Work Phone: [facility] 04-26-2024 13:26-0500 Heart rate 78 /min Deonte Douglas APRN.CNP Work Phone: [facility] 04-26-2024 13:26-0500 Respiratory rate 18 /min Deonte Stella DOPER.HARMONIC ANALYST Work Phone: [facility] 04-26-2024 13:26-0500 SaO2% (BldA) [Mass fraction] 95 % Deonte Stella DOPER.HARMONIC ANALYST Work Phone: [facility] 04-26-2024 13:26-0500 Systolic blood pressure 97 mm[Hg] Deonte Stella DOPER.HARMONIC ANALYST Work Phone: [facility] 04-10-2024 12:54-0500 Body mass index (BMI) [Ratio] 46.94 kg/m2 Dewayne Chung MD Work Phone: [facility] 04-10-2024 12:54-0500 Body weight 120.2 kg Dewayne Chung MD Work Phone: [facility] 04-10-2024 12:54-0500 Diastolic blood pressure 80 mm[Hg] Dewayne Chung MD Work Phone: [facility] 04-10-2024 12:54-0500 Heart rate 63 /min Dewayne Chung MD Work Phone: [facility] 04-10-2024 12:54-0500 Respiratory rate 18 /min Dewayne Chung MD Work Phone: [facility] 04-10-2024 12:54-0500 SaO2% (BldA) [Mass fraction] 94 % Dewayne Chung MD Work Phone: [facility] 04-10-2024 12:54-0500 Systolic blood pressure 132 mm[Hg] Dewayne Chung MD Work Phone: [facility] 04-10-2024 11:27-0500 Body mass index (BMI) [Ratio] 46.94 kg/m2 Naomy Parker MD Work Phone: [facility] 04-10-2024 11:27-0500 Body weight 120.2 kg Naomy Parker MD Work Phone: [facility] 04-10-2024 11:27-0500 Diastolic blood pressure 80 mm[Hg] Naomy Parker MD Work Phone: [facility] 04-10-2024 11:27-0500 Heart rate 102 /min Naomy Parker MD Work Phone: [facility] 04-10-2024 11:27-0500 Respiratory rate 18 /min Naomy Parker MD Work Phone: [facility] 04-10-2024 11:27-0500 SaO2% (BldA) [Mass fraction] 92 % Naomy Parker MD Work Phone: [facility] 04-10-2024 11:27-0500 Systolic blood pressure 124 mm[Hg] Naomy Parker MD Work Phone: [facility] 03-17-2024 13:33-0500 Body mass index (BMI) [Ratio] 48.54 kg/m2 Allie Lemus DOPER.HARMONIC ANALYST Work Phone: [facility] 03-17-2024 13:33-0500 Body weight 124.29 kg Allie Lemus DOPER.HARMONIC ANALYST Work Phone: [facility] 03-17-2024 13:33-0500 Diastolic blood pressure 73 mm[Hg] Allie Lemus DOPER.HARMONIC ANALYST Work Phone: [facility] 03-17-2024 13:33-0500 Heart rate 79 /min Allie Lemus DOPER.HARMONIC ANALYST Work Phone: [facility] 03-17-2024 13:33-0500 Respiratory rate 18 /min Allie Lemus DOPER.HARMONIC ANALYST Work Phone: [facility] 03-17-2024 13:33-0500 Systolic blood pressure 132 mm[Hg] Allie Lemus APRN.HARMONIC ANALYST Work Phone: [facility] 03-09-2024 13:05-0500 Body height 160 cm Dewayne Chung MD Work Phone: [facility] 03-09-2024 13:05-0500 Body mass index (BMI) [Ratio] 49.6 kg/m2 Dewayne Chung MD Work Phone: [facility] 03-09-2024 13:05-0500 Body weight 127.01 kg Dewayne Chung MD Work Phone: [facility] 03-09-2024 13:05-0500 Diastolic blood pressure 76 mm[Hg] Dewayne Chung MD Work Phone: [facility] 03-09-2024 13:05-0500 Heart rate 78 /min Dewayne Chung MD Work Phone: [facility] 03-09-2024 13:05-0500 SaO2% (BldA) [Mass fraction] 94 % Dewayne Chung MD Work Phone: [facility] 03-09-2024 13:05-0500 Systolic blood pressure 142 mm[Hg] Dewayne Chung MD Work Phone: [facility] 02-16-2024 13:35-0500 Body mass index (BMI) [Ratio] 48.36 kg/m2 Dewayne Chung MD Work Phone: [facility] 02-16-2024 13:35-0500 Body weight 123.83 kg Dewayne Chung MD Work Phone: [facility] 02-16-2024 13:35-0500 Diastolic blood pressure 80 mm[Hg] Dewayne Chung MD Work Phone: [facility] 02-16-2024 13:35-0500 Heart rate 70 /min Dewayne Chung MD Work Phone: [facility] 02-16-2024 13:35-0500 Respiratory rate 18 /min Dewayne Chung MD Work Phone: [facility] 02-16-2024 13:35-0500 Systolic blood pressure 132 mm[Hg] Dewayne Chung MD Work Phone: [facility] 01-26-2024 13:46-0500 Body mass index (BMI) [Ratio] 49.07 kg/m2 Allie Lemus APRN.CNP Work Phone: [facility] 01-26-2024 13:46-0500 Body weight 125.65 kg Allie Lemus DOPER.HARMONIC ANALYST Work Phone: [facility] 01-26-2024 13:46-0500 Diastolic blood pressure 75 mm[Hg] Allie Lemus DOPER.HARMONIC ANALYST Work Phone: [facility] 01-26-2024 13:46-0500 Heart rate 95 /min Allie Lemus DOPER.HARMONIC ANALYST Work Phone: [facility] 01-26-2024 13:46-0500 Systolic blood pressure 111 mm[Hg] Allie Lemus DOPER.HARMONIC ANALYST Work Phone: [facility] 12-16-2023 10:39-0400 Body mass index (BMI) [Ratio] 48.54 kg/m2 Naomy Parker MD Work Phone: [facility] 12-16-2023 10:39-0400 Body weight 124.29 kg Naomy Parker MD Work Phone: [facility] 12-16-2023 10:39-0400 Respiratory rate 16 /min Naomy Parker MD Work Phone: [facility] 11-08-2023 12:19-0400 Body mass index (BMI) [Ratio] 47.84 kg/m2 Keke Bae APRN.HARMONIC ANALYST Work Phone: [facility] 11-08-2023 12:19-0400 Body temperature 98.1 [degF] Keke Bae APRN.HARMONIC ANALYST Work Phone: [facility] 11-08-2023 12:19-0400 Body weight 122.5 kg Keke Bae APRN.HARMONIC ANALYST Work Phone: [facility] 11-08-2023 12:19-0400 Diastolic blood pressure 80 mm[Hg] Keke Bae APRN.HARMONIC ANALYST Work Phone: [facility] 11-08-2023 12:19-0400 Heart rate 74 /min Keke Bae APRN.HARMONIC ANALYST Work Phone: [facility] 11-08-2023 12:19-0400 Respiratory rate 18 /min Keke Bae DOPER.HARMONIC ANALYST Work Phone: [facility] 11-08-2023 12:19-0400 SaO2% (BldA) [Mass fraction] 94 % Keke Bae DOPER.HARMONIC ANALYST Work Phone: [facility] 11-08-2023 12:19-0400 Systolic blood pressure 126 mm[Hg] Keke Bae DOPER.HARMONIC ANALYST Work Phone: [facility] 10-18-2023 13:53-0400 Body mass index (BMI) [Ratio] 47.37 kg/m2 Dorian [place] DOPER.HARMONIC ANALYST Work Phone: [facility] 10-18-2023 13:53-0400 Body weight 121.3 kg Dorian Cappspster DOPER.HARMONIC ANALYST Work Phone: [facility] 09-24-2023 10:17-0400 Body mass index (BMI) [Ratio] 47.12 kg/m2 Deonte Stella DOPER.HARMONIC ANALYST Work Phone: [facility] 09-24-2023 10:17-0400 Body weight 120.66 kg Deonte Stella DOPER.HARMONIC ANALYST Work Phone: [facility] 09-24-2023 10:17-0400 Diastolic blood pressure 77 mm[Hg] Deonte Stella DOPER.HARMONIC ANALYST Work Phone: [facility] 09-24-2023 10:17-0400 Heart rate 68 /min Deonte Stella DOPER.HARMONIC ANALYST Work Phone: [facility] 09-24-2023 10:17-0400 Respiratory rate 18 /min Deonte Stella DOPER.HARMONIC ANALYST Work Phone: [facility] 09-24-2023 10:17-0400 SaO2% (BldA) [Mass fraction] 95 % Deonte Stella DOPER.HARMONIC ANALYST Work Phone: [facility] 09-24-2023 10:17-0400 Systolic blood pressure 117 mm[Hg] Deonte Stella DOPER.HARMONIC ANALYST Work Phone: [facility] 08-11-2023 14:29-0400 Body height 160 cm Dewayne Chung MD Work Phone: [facility] 08-11-2023 14:29-0400 Body mass index (BMI) [Ratio] 47.12 kg/m2 Dewayne Chung MD Work Phone: [facility] 08-11-2023 14:29-0400 Body weight 120.66 kg Dewayne Chung MD Work Phone: [facility] 08-11-2023 14:29-0400 Diastolic blood pressure 80 mm[Hg] Dewayne Chung MD Work Phone: [facility] 08-11-2023 14:29-0400 Heart rate 70 /min Dewayne Chung MD Work Phone: [facility] 08-11-2023 14:29-0400 Respiratory rate 18 /min Dewayne Chung MD Work Phone: [facility] 08-11-2023 14:29-0400 Systolic blood pressure 120 mm[Hg] Dewayne Chung MD Work Phone: [facility] 07-19-2023 10:29-0400 Body mass index (BMI) [Ratio] 48.12 kg/m2 Deonte Stella DOPER.HARMONIC ANALYST Work Phone: [facility] 07-19-2023 10:29-0400 Body weight 121.2 kg Deonte Stella DOPER.HARMONIC ANALYST Work Phone: [facility] 07-19-2023 10:29-0400 Diastolic blood pressure 78 mm[Hg] Deonte Stella DOPER.HARMONIC ANALYST Work Phone: [facility] 07-19-2023 10:29-0400 Heart rate 80 /min Deonte Stella DOPER.HARMONIC ANALYST Work Phone: [facility] 07-19-2023 10:29-0400 Respiratory rate 18 /min Deonte Stella DOPER.HARMONIC ANALYST Work Phone: [facility] 07-19-2023 10:29-0400 SaO2% (BldA) [Mass fraction] 95 % Deonte Stella DOPER.HARMONIC ANALYST Work Phone: [facility] 07-19-2023 10:29-0400 Systolic blood pressure 120 mm[Hg] Deonte Stella DOPER.HARMONIC ANALYST Work Phone: [facility] 05-29-2023 21:14-0400 Body temperature 98.8 [degF] [facility] 05-29-2023 21:14-0400 Diastolic blood pressure 63 mm[Hg] [facility] 05-29-2023 21:14-0400 Heart rate 86 /min [facility] 05-29-2023 21:14-0400 Respiratory rate 22 /min [facility] 05-29-2023 21:14-0400 SaO2% (BldA) [Mass fraction] 93 % [facility] 05-29-2023 21:14-0400 Systolic blood pressure 153 mm[Hg] [facility] 05-29-2023 18:17-0400 Body mass index (BMI) [Ratio] 50.3 kg/m2 [facility] 05-29-2023 18:17-0400 Body weight 128.9 kg [facility] 05-29-2023 18:15-0400 Body height 160.02 cm [facility] 05-02-2023 10:03-0500 Body temperature 99.39 [degF] Anamaria Athy PA-C Work Phone: [facility] 05-02-2023 10:03-0500 Body weight 122.47 kg Anamaria Athy PA-C Work Phone: [facility] 05-02-2023 10:03-0500 Diastolic blood pressure 79 mm[Hg] Anamaria Athy PA-C Work Phone: [facility] 05-02-2023 10:03-0500 Heart rate 92 /min Anamaria Athy PA-C Work Phone: [facility] 05-02-2023 10:03-0500 Respiratory rate 30 /min Anamariagideon Colinterese DUFFY-[place] Work Phone: [facility] 05-02-2023 10:03-0500 SaO2% (BldA) [Mass fraction] 93 % Anamariagideon Colinterese [place] Work Phone: [facility] 05-02-2023 10:03-0500 Systolic blood pressure 129 mm[Hg] Anamariagideon Colinterese [place] Work Phone: [facility] 03-08-2023 23:40-0500 Respiratory rate 18 /min [facility] 03-08-2023 21:40-0500 Body height 160.02 cm [facility] 03-08-2023 21:40-0500 Body mass index (BMI) [Ratio] 47.5 kg/m2 [facility] 03-08-2023 21:40-0500 Body temperature 98 [degF] [facility] 03-08-2023 21:40-0500 Body weight 121.6 kg [facility] 03-08-2023 21:40-0500 Diastolic blood pressure 73 mm[Hg] [facility] 03-08-2023 21:40-0500 Heart rate 91 /min [facility] 03-08-2023 21:40-0500 SaO2% (BldA) [Mass fraction] 94 % [facility] 03-08-2023 21:40-0500 Systolic blood pressure 133 mm[Hg] [facility] 02-05-2023 13:43-0500 Body temperature 98.8 [degF] Rosanna Worley DOPER.HARMONIC ANALYST Work Phone: [facility] 02-05-2023 13:43-0500 Body weight 122.02 kg Rosanna Worley DOPER.HARMONIC ANALYST Work Phone: [facility] 02-05-2023 13:43-0500 Diastolic blood pressure 78 mm[Hg] Rosanna Worley DOPER.HARMONIC ANALYST Work Phone: [facility] 02-05-2023 13:43-0500 Heart rate 107 /min Rosanna Worley DOPER.HARMONIC ANALYST Work Phone: [facility] 02-05-2023 13:43-0500 Respiratory rate 18 /min Rosanna Worley DOPER.HARMONIC ANALYST Work Phone: [facility] 02-05-2023 13:43-0500 SaO2% (BldA) [Mass fraction] 95 % Rosanna Worley DOPER.HARMONIC ANALYST Work Phone: [facility] 02-05-2023 13:43-0500 Systolic blood pressure 122 mm[Hg] Rosanna Worley DOPER.HARMONIC ANALYST Work Phone: [facility] 11-27-2022 11:33-0400 Body weight 121.93 kg Yan Bell Jr., MD Work Phone: [facility] 11-27-2022 11:33-0400 Diastolic blood pressure 71 mm[Hg] Yan Bell Jr., MD Work Phone: [facility] 11-27-2022 11:33-0400 Heart rate 71 /min Yan Bell Jr., MD Work Phone: [facility] 11-27-2022 11:33-0400 Respiratory rate 18 /min Yan Bell Jr., MD Work Phone: [facility] 11-27-2022 11:33-0400 SaO2% (BldA) [Mass fraction] 97 % Yan Bell Jr., MD Work Phone: [facility] 11-27-2022 11:33-0400 Systolic blood pressure 108 mm[Hg] Yan Bell Jr., MD Work Phone: [facility] 11-16-2022 13:05-0400 Body temperature 99.3 [degF] Keke Bae DOPER.HARMONIC ANALYST Work Phone: [facility] 11-16-2022 13:05-0400 Body weight 119.3 kg Keke Bea DOPER.HARMONIC ANALYST Work Phone: [facility] 11-16-2022 13:05-0400 Diastolic blood pressure 70 mm[Hg] Keke Bae DOPER.HARMONIC ANALYST Work Phone: [facility] 11-16-2022 13:05-0400 Heart rate 96 /min Keke Bae DOPER.HARMONIC ANALYST Work Phone: [facility] 11-16-2022 13:05-0400 Respiratory rate 18 /min Keke Bae DOPER.HARMONIC ANALYST Work Phone: [facility] 11-16-2022 13:05-0400 SaO2% (BldA) [Mass fraction] 95 % Keke Bae DOPER.HARMONIC ANALYST Work Phone: [facility] 11-16-2022 13:05-0400 Systolic blood pressure 128 mm[Hg] Keke Bae DOPER.HARMONIC ANALYST Work Phone: [facility] 10-28-2022 12:38-0400 Body temperature 97 [degF] Padmini Solorzano PA-C Work Phone: [facility] 10-28-2022 12:38-0400 Body weight 118.84 kg Padmini Solorzano PA-C Work Phone: [facility] 10-28-2022 12:38-0400 Diastolic blood pressure 78 mm[Hg] Padmini Solorzano PA-C Work Phone: [facility] 10-28-2022 12:38-0400 Heart rate 72 /min Padmini Solorzano PA-C Work Phone: [facility] 10-28-2022 12:38-0400 Respiratory rate 18 /min Padmini Solorzano PA-C Work Phone: [facility] 10-28-2022 12:38-0400 Systolic blood pressure 124 mm[Hg] Padmini Solorzano PA-C Work Phone: [facility] 10-17-2022 20:53-0400 Diastolic blood pressure 92 mm[Hg] [facility] 10-17-2022 20:53-0400 Heart rate 78 /min [facility] 10-17-2022 20:53-0400 Respiratory rate 16 /min [facility] 10-17-2022 20:53-0400 SaO2% (BldA) [Mass fraction] 96 % [facility] 10-17-2022 20:53-0400 Systolic blood pressure 166 mm[Hg] [facility] 10-17-2022 19:16-0400 Body height 160.02 cm [facility] 10-17-2022 19:16-0400 Body mass index (BMI) [Ratio] 47.2 kg/m2 [facility] 10-17-2022 19:16-0400 Body temperature 98 [degF] [facility] 10-17-2022 19:16-0400 Body weight 120.85 kg [facility] 09-08-2022 10:53-0400 Body weight 119.75 kg Dewayne Chung MD Work Phone: [facility] 09-08-2022 10:53-0400 Diastolic blood pressure 86 mm[Hg] Dewayne Chung MD Work Phone: [facility] 09-08-2022 10:53-0400 Heart rate 76 /min Dewayne Chung MD Work Phone: [facility] 09-08-2022 10:53-0400 Respiratory rate 18 /min Dewayne Chung MD Work Phone: [facility] 09-08-2022 10:53-0400 Systolic blood pressure 128 mm[Hg] Dewayne Chung MD Work Phone: [facility] 08-07-2022 14:04-0400 Body temperature 98.4 [degF] Yan Bell Jr., MD Work Phone: [facility] 08-07-2022 14:04-0400 Body weight 119.39 kg Yan Bell Jr., MD Work Phone: [facility] 08-07-2022 14:04-0400 Diastolic blood pressure 83 mm[Hg] Yan Bell Jr., MD Work Phone: [facility] 08-07-2022 14:04-0400 Heart rate 75 /min Yan Bell Jr., MD Work Phone: [facility] 08-07-2022 14:04-0400 Respiratory rate 18 /min Yan Bell Jr., MD Work Phone: [facility] 08-07-2022 14:04-0400 SaO2% (BldA) [Mass fraction] 94 % Yan Bell Jr., MD Work Phone: [facility] 08-07-2022 14:04-0400 Systolic blood pressure 133 mm[Hg] Yan Bell Jr., MD Work Phone: [facility] 07-13-2022 11:10-0400 Body weight 121.56 kg Allie Lemus DOPER.HARMONIC ANALYST Work Phone: [facility] 07-13-2022 11:10-0400 Diastolic blood pressure 80 mm[Hg] Allie Lemus DOPER.HARMONIC ANALYST Work Phone: [facility] 07-13-2022 11:10-0400 Heart rate 84 /min Allie Lemus DOPER.HARMONIC ANALYST Work Phone: [facility] 07-13-2022 11:10-0400 Respiratory rate 16 /min Allie Avelinooble DOPER.HARMONIC ANALYST Work Phone: [facility] 07-13-2022 11:10-0400 Systolic blood pressure 130 mm[Hg] Allie Lemus DOPER.HARMONIC ANALYST Work Phone: [facility] 07-09-2022 10:05-0400 Body weight 121.56 kg Allie Lemus DOPER.HARMONIC ANALYST Work Phone: [facility] 07-09-2022 10:05-0400 Diastolic blood pressure 76 mm[Hg] Allie Knoble DOPER.HARMONIC ANALYST Work Phone: [facility] 07-09-2022 10:05-0400 Heart rate 78 /min Allie Avelinooble DOPER.HARMONIC ANALYST Work Phone: [facility] 07-09-2022 10:05-0400 Respiratory rate 16 /min Allie Avelinooble DOPER.HARMONIC ANALYST Work Phone: [facility] 07-09-2022 10:05-0400 Systolic blood pressure 128 mm[Hg] Allie Bria SOL Work Phone: [facility] 07-06-2022 17:29-0400 Body height 160.02 cm [facility] 07-06-2022 17:29-0400 Body mass index (BMI) [Ratio] 47.5 kg/m2 [facility] 07-06-2022 17:29-0400 Body temperature 98.6 [degF] [facility] 07-06-2022 17:29-0400 Body weight 121.56 kg [facility] 07-06-2022 17:29-0400 Diastolic blood pressure 61 mm[Hg] [facility] 07-06-2022 17:29-0400 Heart rate 82 /min [facility] 07-06-2022 17:29-0400 Respiratory rate 16 /min [facility] 07-06-2022 17:29-0400 SaO2% (BldA) [Mass fraction] 99 % [facility] 07-06-2022 17:29-0400 Systolic blood pressure 152 mm[Hg] [facility] 07-06-2022 16:42-0400 Body temperature 99.39 [degF] Elan Guzman MD Work Phone: [facility] 07-06-2022 16:42-0400 Body weight 123.38 kg Elan Guzman MD Work Phone: [facility] 07-06-2022 16:42-0400 Diastolic blood pressure 86 mm[Hg] Elan Guzman MD Work Phone: [facility] 07-06-2022 16:42-0400 Heart rate 76 /min Elan Guzman MD Work Phone: [facility] 07-06-2022 16:42-0400 Respiratory rate 18 /min Elan Guzman MD Work Phone: [facility] 07-06-2022 16:42-0400 SaO2% (BldA) [Mass fraction] 96 % Elan Guzman MD Work Phone: [facility] 07-06-2022 16:42-0400 Systolic blood pressure 132 mm[Hg] Elan Guzman MD Work Phone: [facility] 07-04-2022 08:52-0400 Body height 160.02 cm [facility] 07-04-2022 08:52-0400 Body mass index (BMI) [Ratio] 47.5 kg/m2 [facility] 07-04-2022 08:52-0400 Body temperature 98.4 [degF] [facility] 07-04-2022 08:52-0400 Body weight 121.56 kg [facility] 07-04-2022 08:52-0400 Diastolic blood pressure 76 mm[Hg] [facility] 07-04-2022 08:52-0400 Heart rate 68 /min [facility] 07-04-2022 08:52-0400 Respiratory rate 18 /min [facility] 07-04-2022 08:52-0400 SaO2% (BldA) [Mass fraction] 97 % [facility] 07-04-2022 08:52-0400 Systolic blood pressure 118 mm[Hg] [facility] 07-04-2022 08:09-0400 Body temperature 99.9 [degF] Yan Peterson MD Work Phone: [facility] 07-04-2022 08:09-0400 Body weight 121.56 kg Yan Peterson MD Work Phone: [facility] 07-04-2022 08:09-0400 Diastolic blood pressure 68 mm[Hg] Yan Peterson MD Work Phone: [facility] 07-04-2022 08:09-0400 Heart rate 74 /min Yan Peterson MD Work Phone: [facility] 07-04-2022 08:09-0400 Respiratory rate 16 /min Yan Peterson MD Work Phone: [facility] 07-04-2022 08:09-0400 SaO2% (BldA) [Mass fraction] 94 % Yan Peterson MD Work Phone: [facility] 07-04-2022 08:09-0400 Systolic blood pressure 120 mm[Hg] Yan Peterson MD Work Phone: [facility] 07-01-2022 20:40-0400 Body height 160.02 cm [facility] 07-01-2022 20:40-0400 Body mass index (BMI) [Ratio] 47.9 kg/m2 [facility] 07-01-2022 20:40-0400 Body temperature 98 [degF] [facility] 07-01-2022 20:40-0400 Body weight 122.8 kg [facility] 07-01-2022 20:40-0400 Diastolic blood pressure 90 mm[Hg] [facility] 07-01-2022 20:40-0400 Heart rate 85 /min [facility] 07-01-2022 20:40-0400 Respiratory rate 18 /min [facility] 07-01-2022 20:40-0400 SaO2% (BldA) [Mass fraction] 98 % [facility] 07-01-2022 20:40-0400 Systolic blood pressure 143 mm[Hg] [facility] 06-26-2022 13:26-0400 Body height 158.7 cm Pulm Wstr Work Phone: [facility] 06-26-2022 13:26-0400 Body weight 119.75 kg Pulm Wstr Work Phone: [facility] 06-26-2022 13:26-0400 Heart rate 77 /min [facility] Work Phone: [facility] 06-26-2022 13:26-0400 Respiratory rate 14 /min [facility] Work Phone: [facility] 06-26-2022 13:26-0400 SaO2% (BldA) [Mass fraction] 93 % Pulm Wstr Work Phone: [facility] 06-24-2022 10:52-0400 Body weight 120.2 kg Dorian Kern APRN.HARMONIC ANALYST Work Phone: [facility] 06-24-2022 10:52-0400 Diastolic blood pressure 78 mm[Hg] Dorian [place] DOPER.HARMONIC ANALYST Work Phone: [facility] 06-24-2022 10:52-0400 Heart rate 87 /min Dorian Kern DOPER.HARMONIC ANALYST Work Phone: [facility] 06-24-2022 10:52-0400 Respiratory rate 18 /min Dorian Kern DOPER.HARMONIC ANALYST Work Phone: [facility] 06-24-2022 10:52-0400 SaO2% (BldA) [Mass fraction] 93 % Dorian Kern DOPER.HARMONIC ANALYST Work Phone: [facility] 06-24-2022 10:52-0400 Systolic blood pressure 122 mm[Hg] Dorian Kern DOPER.HARMONIC ANALYST Work Phone: [facility] 06-15-2022 15:01-0400 Body height 158.8 cm Dewayne Chung MD Work Phone: [facility] 06-15-2022 15:01-0400 Body weight 120.2 kg Dewayne Chung MD Work Phone: [facility] 06-15-2022 15:01-0400 Diastolic blood pressure 82 mm[Hg] Dewayne Chung MD Work Phone: [facility] 06-15-2022 15:01-0400 Heart rate 76 /min Dewayne Chung MD Work Phone: [facility] 06-15-2022 15:01-0400 Systolic blood pressure 138 mm[Hg] Dewayne Chung MD Work Phone: [facility] 01-06-2022 19:48-0500 Body temperature 97.7 [degF] Dewayne Tomas DOPER.HARMONIC ANALYST Work Phone: [facility] 01-06-2022 19:48-0500 Body weight 118.84 kg Dewayne Tomas DOPER.HARMONIC ANALYST Work Phone: [facility] 01-06-2022 19:48-0500 Diastolic blood pressure 82 mm[Hg] Dewayne [place] DOPER.HARMONIC ANALYST Work Phone: [facility] 01-06-2022 19:48-0500 Heart rate 84 /min [facility] DOPER.HARMONIC ANALYST Work Phone: [facility] 01-06-2022 19:48-0500 Respiratory rate 18 /min [facility] DOPER.HARMONIC ANALYST Work Phone: [facility] 01-06-2022 19:48-0500 SaO2% (BldA) [Mass fraction] 95 % [facility] DOPER.HARMONIC ANALYST Work Phone: [facility] 01-06-2022 19:48-0500 Systolic blood pressure 128 mm[Hg] [facility] DOPER.HARMONIC ANALYST Work Phone: [facility] 12-08-2021 12:31-0400 Body temperature 98.71 [degF] Padmini Solorzano PA-C Work Phone: [facility] 12-08-2021 12:31-0400 Body weight 116.57 kg Padmini Solorzano PA-C Work Phone: [facility] 12-08-2021 12:31-0400 Diastolic blood pressure 82 mm[Hg] Padmini Solorzano PA-C Work Phone: [facility] 12-08-2021 12:31-0400 Heart rate 68 /min Padmini Solorzano PA-C Work Phone: [facility] 12-08-2021 12:31-0400 Respiratory rate 18 /min Padmini Solorzano PA-C Work Phone: [facility] 12-08-2021 12:31-0400 Systolic blood pressure 144 mm[Hg] Padmini Solorzano PA-C Work Phone: [facility] 09-16-2021 14:10-0400 Body temperature 97.59 [degF] Nettie Sanchez PA-C Work Phone: [facility] 09-16-2021 14:10-0400 Body weight 118.48 kg Nettie Laura PA-C Work Phone: [facility] 09-16-2021 14:10-0400 Diastolic blood pressure 81 mm[Hg] Nettie Laura PA-C Work Phone: [facility] 09-16-2021 14:10-0400 Heart rate 87 /min Nettie Laura PA-C Work Phone: [facility] 09-16-2021 14:10-0400 SaO2% (BldA) [Mass fraction] 97 % Nettiearnulfo Joinerf PA-C Work Phone: [facility] 09-16-2021 14:10-0400 Systolic blood pressure 126 mm[Hg] Nettiearnulfo Joinerf PA-C Work Phone: [facility] 08-14-2021 00:40-0400 Diastolic blood pressure 74 mm[Hg] [facility] Work Phone: 08-14-2021 00:40-0400 Heart rate 74 /min [facility] Work Phone: 08-14-2021 00:40-0400 Respiratory rate 18 /min [facility] Work Phone: 08-14-2021 00:40-0400 SaO2% (BldA) [Mass fraction] 98 % [facility] Work Phone: 08-14-2021 00:40-0400 Systolic blood pressure 110 mm[Hg] [facility] Work Phone: 08-13-2021 23:34-0400 Body height 162.56 cm [facility] Work Phone: 08-13-2021 23:34-0400 Body mass index (BMI) [Ratio] 44.6 kg/m2 [facility] Work Phone: 08-13-2021 23:34-0400 Body temperature 97.6 [degF] [facility] Work Phone: 08-13-2021 23:34-0400 Body weight 117.93 kg [facility] Work Phone: 07-24-2021 10:18-0400 Diastolic blood pressure 59 mm[Hg] Douglas Corral MD Work Phone: [facility] 07-24-2021 10:18-0400 Heart rate 72 /min Douglas Corral MD Work Phone: [facility] 07-24-2021 10:18-0400 Respiratory rate 16 /min Douglas Corral MD Work Phone: [facility] 07-24-2021 10:18-0400 SaO2% (BldA) [Mass fraction] 94 % Douglas Corral MD Work Phone: [facility] 07-24-2021 10:18-0400 Systolic blood pressure 117 mm[Hg] Douglas Corral MD Work Phone: [facility] 07-24-2021 08:52-0400 Body temperature 98.01 [degF] Douglas Corral MD Work Phone: [facility] 05-26-2021 11:57-0400 Body height 159.5 cm Padmini Solorzano PA-C Work Phone: [facility] 05-26-2021 11:57-0400 Body temperature 97.2 [degF] Padmini Solorzano PA-C Work Phone: [facility] 05-26-2021 11:57-0400 Body weight 120.66 kg Padmini Solorzano PA-C Work Phone: [facility] 05-26-2021 11:57-0400 Diastolic blood pressure 86 mm[Hg] Padmini Solorzano PA-C Work Phone: [facility] 05-26-2021 11:57-0400 Heart rate 76 /min Padmini Solorzano PA-C Work Phone: [facility] 05-26-2021 11:57-0400 Respiratory rate 18 /min Padmini Solorzano PA-C Work Phone: [facility] 03-28-2022 11:57-0400 Systolic blood pressure 126 mm[Hg] Padmini Solorzano PA-C Work Phone: [facility] 09-15-2016 15:04-0400 BMI (Body Mass Index) 46.94 kg/m2 [facility] Work Phone: 09-15-2016 15:04-[address] [facility] Work Phone: 09-15-2016 15:04-[address] [facility] Work Phone: Encounters Encounter Date Encounter Type Care Provider Facility Start: 07-06-2024 End: 07-06-2024 ambulatory Griffin Garrison PT Work Phone: [facility] Comment on above: Chronic 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 (Primary Dx) Start: 06-14-2024 End: 06-14-2024 ambulatory Verena Franklin CENTRIFUGAL EXTRACTOR OPERATOR Work Phone: [facility] Comment on above: Chronic 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 (Primary Dx) Start: 05-23-2024 End: 05-23-2024 ambulatory Griffin Garrison PT Work Phone: [facility] Comment on above: Chronic 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 (Primary Dx) Start: 05-17-2024 End: 05-17-2024 Telephone encounter Dewayne Chung MD Work Phone: [address] [place] [address] Comment on above: Patient Question Start: 05-16-2024 End: 05-16-2024 ambulatory Verena Greeneba CENTRIFUGAL EXTRACTOR OPERATOR Work Phone: [facility] Comment on above: Chronic 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 (Primary Dx) Start: 05-04-2024 End: 05-04-2024 ambulatory Griffin Garrison PT Work Phone: [facility] Comment on above: Chronic 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 (Primary Dx) Start: 05-01-2024 End: 05-01-2024 Chart abstracting Carl Bryant MA [facility] [place] Comment on above: Consult (Outside con sult - ortho ) Start: 04-27-2024 End: 04-27-2024 ambulatory Dewayne Chung Facility:[facility] Start: 04-26-2024 End: 04-26-2024 Patient encounter procedure Deonte Douglas APRN.HARMONIC ANALYST Work Phone: Neurology Comment on above: Obstructive sleep ap ann (Primary Dx); Nocturnal hypoxia; Difficulty using continuous positive airway pressure (CPAP) device Start: 04-26-2024 End: 04-26-2024 ambulatory DEONTE DOUGLAS Facility:[facility] Start: 04-10-2024 End: 04-10-2024 ambulatory DEWAYNE CHUNG Facility:[facility] Start: 04-10-2024 End: 04-10-2024 Patient encounter procedure Naomy Parker MD Work Phone: Pulmonary Medicine Comment on above: Stage 1 mild COPD by GOLD classification (HCC) (Primary Dx); Cigarette smoker; Morbid obesity ([facility]); Gastroesophageal reflux disease, unspecified whether esophagitis present Neoplasm of uncertai n behavior of skin of forearm (Primary Dx) Start: 03-17-2024 End: 03-17-2024 Patient encounter procedure Allie Lemus APRN.HARMONIC ANALYST Work Phone: [facility] [place] Comment on above: Essential hypertensi on (Primary Dx); Elevated hemoglobin A1c; Stage 3a chronic kidney disease (HCC); Class 3 severe obesity due to excess calories without serious comorbidity with body mass index (BMI) of 45.0 to 49.9 in adult ([facility]); Gastroesophageal reflux disease without esophagitis; Recurrent major depressive disorder, in remission ([facility]); Mixed hyperlipidemia; Medication management Start: 03-17-2024 End: 03-17-2024 ambulatory DEWAYNE CHUNG Facility:[facility] Start: 03-15-2024 End: 03-17-2024 Telephone encounter Carl Bryant MA [facility] [place] Comment on above: Appointment Start: 03-13-2024 End: 03-13-2024 Telephone encounter Dewayne Chung MD Work Phone: [facility] [place] Comment on above: Patient Question Start: 03-09-2024 End: 03-09-2024 Patient encounter procedure Dewayne Chung MD Work Phone: [facility] [place] Comment on above: Trigger middle finge r of right hand (Primary Dx); Trigger ring finger of right hand Start: 03-09-2024 End: 03-09-2024 ambulatory DEWAYNE CHUNG Facility:[facility] Start: 02-21-2024 End: 02-21-2024 Telephone encounter Allie Lemus APRN.HARMONIC ANALYST Work Phone: [facility] [place] Comment on above: Results Start: 02-18-2024 End: 02-18-2024 ambulatory DEWAYNE CHUNG Facility:[facility] Start: 02-18-2024 End: 02-18-2024 Subsequent [facility] visit by [facility] Comment on above: Encounter for screen ing mammogram for breast cancer [Z12.31] Start: 02-16-2024 End: 02-16-2024 ambulatory DEWAYNE CHUNG Facility:[facility] Start: 02-16-2024 End: 02-16-2024 Patient encounter procedure Dewayne Chung MD Work Phone: [facility] [place] Comment on above: Lumbar disc herniati on (Primary Dx); Degeneration of intervertebral disc of lumbar region with discogenic back pain and lower extremity pain; Acute right-sided low back pain with right-sided sciatica; Trigger middle finger of right hand; Trigger ring finger of right hand; Neoplasm of uncertain behavior of skin of forearm; Essential hypertension; Anxiety state; Encounter for immunization Start: 02-16-2024 End: 02-16-2024 ambulatory DEWANYE CHUNG Facility:[facility] Start: 01-26-2024 End: 01-26-2024 Telephone encounter Padmini Solorzano PA-C Work Phone: [facility] Comment on above: Appointment Start: 01-26-2024 End: 01-26-2024 ambulatory DEWAYNE CHUNG Facility:[facility] Start: 01-26-2024 End: 01-26-2024 Patient encounter procedure Allie Lemus APRN.HARMONIC ANALYST Work Phone: [facility] Comment on above: Sciatica, unspecifie d laterality (Primary Dx); Moderate obstructive sleep apnea; Primary insomnia; Chronic 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; URI, acute Start: 01-20-2024 End: 01-21-2024 Telephone encounter Dewayne Chung MD Work Phone: [facility] Comment on above: Question Start: 12-16-2023 End: 12-16-2023 ambulatory DEONTE DOUGLAS Facility:[facility] Start: 12-16-2023 End: 12-16-2023 Patient encounter procedure Naomy Parker MD Work Phone: Pulmonary Medicine Comment on above: COPD, mild (HCC) (Pr imary Dx); Cigarette smoker; MÓNICA (obstructive sleep apnea); Gastroesophageal reflux disease, unspecified whether esophagitis present; Morbid obesity (HCC) Start: 11-08-2023 End: 11-08-2023 Patient encounter procedure Keke Bae APRN.HARMONIC ANALYST Work Phone: [facility] Comment on above: COPD with exacerbati on (HCC) (Primary Dx); Acute cough; URI, acute Start: 11-08-2023 End: 11-08-2023 ambulatory DEWAYNE CHUNG Facility:[facility] Start: 11-08-2023 End: 11-08-2023 Subsequent hospital visit by physician Xr [facility] [place] Work Phone: Radiology Comment on above: Acute cough [R05.1] Start: 11-06-2023 End: 11-08-2023 Telephone encounter Dewayne Chung MD Work Phone: [facility] Comment on above: Results Start: 11-04-2023 End: 11-04-2023 ambulatory DEWAYNE CHUNG Facility:[facility] Start: 11-04-2023 End: 11-04-2023 Subsequent hospital visit by physician Bone Density [facility] Work Phone: Radiology Comment on above: Screening for osteop orosis [Z13.820] Start: 10-20-2023 End: 10-25-2023 ambulatory Dewayne Chung MD Work Phone: Internal Medicine [facility] Start: 10-20-2023 End: 10-20-2023 Telephone encounter Dorian Kern APRN.HARMONIC ANALYST Work Phone: Pulmonary Medicine Comment on above: Medication Dosage Ad justment Start: 10-18-2023 End: 10-18-2023 Patient encounter procedure Dorian Kern APRN.HARMONIC ANALYST Work Phone: Pulmonary Medicine Comment on above: Multiple lung nodule s (Primary Dx); Encounter for screening for lung cancer; Tobacco use current Start: 10-18-2023 End: 10-18-2023 ambulatory DEWAYNE CHUNG Facility:[facility] Start: 10-04-2023 Refill Dewayne theodore MD Work Phone: [facility] Comment on above: Refill Request Start: 10-03-2023 Telephone encounter Deonte enciso APRN.HARMONIC ANALYST Work Phone: Neurology Start: 09-24-2023 End: 09-24-2023 [facility] Start: 09-24-2023 End: 09-24-2023 Subsequent hospital visit by physician [facility] (I-Stat) Work Phone: Cat Scan Comment on above: Encounter for screen ing for lung cancer [Z12.2] Start: 09-24-2023 End: 09-24-2023 Patient encounter procedure Deonte Douglas APRN.HARMONIC ANALYST Work Phone: Neurology Comment on above: MÓNICA (obstructive sle ep apnea) (Primary Dx); Nocturnal hypoxia; Chronic obstructive pulmonary disease, unspecified COPD type (HCC); Moderate smoker (20 or less per day) Start: 09-24-2023 End: 09-24-2023 ambulatory DEONTE DOUGLAS Facility:[facility] Start: 09-17-2023 Telephone encounter Deonte enciso APRN.CNP Work Phone: Neurology Comment on above: PAP Therapy Follow U p Start: 08-11-2023 End: 08-11-2023 ambulatory DEWAYNE CHUNG Facility:[facility] Start: 08-11-2023 End: 08-11-2023 Patient encounter procedure Dewayne Chung MD Work Phone: [facility] Comment on above: Encounter for Medica re annual wellness exam (Primary Dx); Essential hypertension; Mixed hyperlipidemia; Gastroesophageal reflux disease without esophagitis; Coronary artery calcification; Pulmonary emphysema, unspecified emphysema type ([facility]); Anxiety state; Recurrent major depressive disorder, in remission ([facility]); Smoker; Class 3 severe obesity due to excess calories without serious comorbidity with body mass index (BMI) of 45.0 to 49.9 in adult ([facility]); Venous insufficiency (chronic) (peripheral); Vitamin B12 deficiency; Moderate obstructive sleep apnea; Advance directive discussed with patient; Screening for osteoporosis; Primary ovarian failure; Stage 3a chronic kidney disease ([facility]); Need for vaccination; Paronychia of right thumb; Elevated hemoglobin A1c Start: 08-10-2023 End: 08-10-2023 ambulatory DEWAYNE CHUNG Facility:[facility] Start: 08-06-2023 Telephone encounter Dewayne Chung MD Work Phone: [facility] Comment on above: Lab Orders Start: 07-30-2023 Refill Allie harrison APRN.HARMONIC ANALYST Work Phone: [facility] Comment on above: Refill Request Start: 07-19-2023 End: 07-19-2023 ambulatory DEONTE DOUGLAS Facility:[facility] Start: 07-19-2023 End: 07-19-2023 Patient encounter procedure Deonte Douglas APRN.CNP Work Phone: Neurology Comment on above: MÓNICA (obstructive sle ep apnea) (Primary Dx); Sleep related hypoxia Start: 07-14-2023 Telephone encounter Deonte enciso APRN.CNP Work Phone: Neurology Comment on above: PAP Therapy Follow U p (06/14/23 - 07/13/23 ) Start: 06-23-2023 ambulatory [facility] [place] Start: 06-23-2023 Patient encounter [facility] Comment on above: Population Health [facility] (ACO ALYSSA PCSA) Start: 05-29-2023 End: 05-29-2023 [facility]: Start: 05-06-2023 Telephone encounter Deonte enciso APRN.HARMONIC ANALYST Work Phone: Neurology Comment on above: PAP Therapy Follow U p (04/06/23 - 05/05/23) Start: 05-03-2023 Telephone encounter Anamaria gudino PA-C Work Phone: [facility] Comment on above: Results Start: 05-03-2023 End: 05-03-2023 Subsequent hospital visit by physician [facility] Work Phone: Radiology Comment on above: Canceled (CC cx: Err or or Template Change) Fever, unspecified f ever cause [R50.9] Start: 05-02-2023 End: 05-02-2023 Patient encounter procedure Anamaria Gonzalez PA-C Work Phone: [facility] Comment on above: Fever, unspecified f ever cause (Primary Dx) Start: 03-08-2023 End: 03-09-2023 [facility] Work Phone: Start: 02-10-2023 Refill Dewayne theodore MD Work Phone: [facility] Comment on above: Refill Request Start: 02-07-2023 Telephone encounter Jenny Trevino APRN.HARMONIC ANALYST Work Phone: [facility] Comment on above: Results Start: 02-05-2023 End: 02-05-2023 Patient encounter procedure Rosanna Worley DOPER.HARMONIC ANALYST Work Phone: [facility] Comment on above: Cystitis with hematu melvi (Primary Dx) Start: 01-27-2023 Telephone encounter Deonte enciso APRN.HARMONIC ANALYST Work Phone: Neurology Comment on above: Patient Update Start: 12-30-2022 Refill Dewayne theodore MD Work Phone: [facility] [place] Comment on above: Refill Request Start: 12-09-2022 Refill Dewayne theodore MD Work Phone: [facility] [place] Comment on above: Refill Request Start: 12-01-2022 End: 12-01-2022 Patient encounter procedure Wanda Pa APRN.HARMONIC ANALYST Work Phone: OB/Gynecology Comment on above: Essential hypertensi on (Primary Dx); Gastroesophageal reflux disease without esophagitis; Mixed hyperlipidemia; Moderate obstructive sleep apnea; Osteoarthritis of multiple joints, unspecified osteoarthritis type Start: 11-27-2022 End: 11-27-2022 Patient encounter procedure Yan Bell MD Work Phone: Neurology Comment on above: MÓNICA (obstructive sle ep apnea) (Primary Dx); Sleep related hypoxia; Class 3 severe obesity with body mass index (BMI) of 45.0 to 49.9 in adult, unspecified obesity type, unspecified whether serious comorbidity present (HCC); Chronic obstructive pulmonary disease, unspecified COPD type (HCC) Start: 11-18-2022 ambulatory Dewayne theodore MD Work Phone: Internal Medicine [facility] [place] Start: 11-16-2022 End: 11-16-2022 Subsequent hospital visit by physician Robbie [facility] [place] Work Phone: Radiology Comment on above: Rhonchi [R09.89] Start: 11-16-2022 End: 11-16-2022 Patient encounter procedure Keke Bae APRN.HARMONIC ANALYST Work Phone: [facility] Comment on above: COPD (chronic obstru ctive pulmonary disease) with acute bronchitis (HCC) (Primary Dx); Rhonchi; URI, acute Start: 10-29-2022 Telephone encounter Padmini tristan PA-C Work Phone: [facility] Comment on above: Appointment Start: 10-28-2022 End: 10-28-2022 Patient encounter procedure Padmini Solorzano PA-C Work Phone: [facility] Comment on above: Dog bite, initial en counter (Primary Dx); Visit for suture removal; Obesity, Class III, BMI 40-49.9 (morbid obesity) (HCC) Start: 10-22-2022 Chart abstracting Dewayne garcia MD Work Phone: [facility] Comment on above: ER F/U Start: 10-22-2022 Telephone encounter Carlchristy Bryant MA [facility] Comment on above: Results Start: 10-20-2022 Non-patient / Non-visit Dr. Arvin Chung Work Phone: [facility] Start: 10-20-2022 End: 10-20-[address] Dewayne Chung Work Phone: [facility] Work Phone: Start: 10-20-2022 End: 10-20-[address] Dewayne Chung Work Phone: [facility]Cardiov[facility] Work Phone: Start: 10-17-2022 End: 10-17-2022 Emergency department patient visit [facility] Work Phone: Start: 10-07-2022 End: 10-07-2022 ambulatory [facility] Work Phone: Start: 10-07-2022 End: 10-07-2022 Patient encounter procedure [facility]Sleep Lab Work Phone: Start: 09-08-2022 End: 09-08-2022 Patient encounter procedure Dewayne Chung MD Work Phone: [facility] Comment on above: Coronary artery calc ification (Primary Dx); SOB (shortness of breath); Decreased stamina; Family history of early CAD; MÓNICA (obstructive sleep apnea) Start: 08-24-2022 Telephone encounter Dorian rodas APRN.CNP Work Phone: [facility] Comment on above: Results Start: 08-20-2022 End: 08-20-2022 ambulatory [facility] Work Phone: Start: 08-20-2022 End: 08-20-2022 Patient encounter procedure [facility]Sleep Lab Start: 08-20-2022 End: 08-20-2022 Subsequent hospital visit by physician Barb [facility] (I-Stat) Work Phone: Cat Scan Comment on above: Encounter for screen ing for lung cancer [Z12.2] Start: 08-17-2022 Telephone encounter Yan Bell MD Work Phone: Neurology Comment on above: Appointment Reschedu led Start: 08-07-2022 End: 08-07-2022 Patient encounter procedure Yan Bell MD Work Phone: Neurology Comment on above: MÓNICA (obstructive sle ep apnea) (Primary Dx); Sleep related hypoxia; Class 3 severe obesity with body mass index (BMI) of 45.0 to 49.9 in adult, unspecified obesity type, unspecified whether serious comorbidity present (HCC); Delayed sleep phase syndrome Start: 08-04-2022 Telephone encounter Dewayne Chung MD Work Phone: [facility] [place] Comment on above: Patient Update Start: 08-03-2022 Telephone encounter Dewayne Chung MD Work Phone: [facility] Comment on above: Results Start: 07-13-2022 End: 07-13-2022 Patient encounter procedure Allie Lemus APRN.HARMONIC ANALYST Work Phone: [facility] [place] Comment on above: Dog bite of left wri st with infection, subsequent encounter (Primary Dx) Start: 07-09-2022 End: 07-09-2022 Patient encounter procedure Allie Lemus APRN.HARMONIC ANALYST Work Phone: [facility] [place] Comment on above: Dog bite of left wri st with infection, subsequent encounter (Primary Dx) Start: 07-07-2022 Telephone encounter Raffi Guzman MD Work Phone: [facility] [place] Comment on above: Recheck (Dog bite) Start: 07-06-2022 End: 07-06-2022 Emergency department patient visit [facility] Start: 07-06-2022 End: 07-06-2022 Patient encounter procedure Elan Guzman MD Work Phone: [facility] Comment on above: Dog bite of left wri st with infection, subsequent encounter (Primary Dx); Abscess Start: 07-04-2022 End: 07-04-2022 [facility] Start: 07-04-2022 End: 07-04-2022 Patient encounter procedure Yan Peterson MD Work Phone: [facility] Comment on above: Cellulitis of skin ( Primary Dx); Dog bite, subsequent encounter Start: 07-01-2022 End: 07-01-2022 [facility] Start: 06-29-2022 Telephone encounter Dewayne Chung MD Work Phone: [facility] Comment on above: Results Start: 06-26-2022 End: 06-26-2022 ambulatory Pulm Lab [facility] Work Phone: PULM LAB [facility] Comment on above: Spirometry Start: 06-26-2022 End: 06-26-2022 Patient encounter procedure Pulm Lab [facility] Work Phone: [facility] Start: 06-24-2022 End: 06-24-2022 Patient encounter procedure Dorian Kern DOPER.HARMONIC ANALYST Work Phone: Pulmonary Medicine Comment on above: Encounter for screen ing for lung cancer (Primary Dx); Tobacco use current Start: 06-18-2022 Telephone encounter Dewayne Chung MD Work Phone: [facility] Comment on above: Results Start: 06-15-2022 End: 06-15-2022 Subsequent hospital visit by physician Xr [facility] [place] Work Phone: Radiology Comment on above: Cough, persistent [R 05.3] Start: 06-15-2022 End: 06-15-2022 Patient encounter procedure eDwayne Chung MD Work Phone: [facility] Comment on above: Recurrent major depr essive disorder, in remission (HCC) (Primary Dx); Anxiety state; Class 3 severe obesity due to excess calories without serious comorbidity with body mass index (BMI) of 45.0 to 49.9 in adult (HCC); Snores; Hypersomnolence; Pulmonary emphysema, unspecified emphysema type (HCC); Cough, persistent; Smoker; Encounter for screening for lung cancer; Mixed hyperlipidemia; Essential hypertension; Gastroesophageal reflux disease without esophagitis; Vitamin B12 deficiency; Medication management; Advance directive discussed with patient; Lip lesion Start: 06-11-2022 Refill Dewayne theodore MD Work Phone: [facility] [place] Comment on above: Refill Request Start: 01-06-2022 End: 01-06-2022 Patient encounter procedure Dewayne Tomas APRN.CNP Work Phone: [facility] Comment on above: Acute cough (Primary Dx); Suspected COVID-19 virus infection; COPD with exacerbation (HCC) Start: 12-17-2021 Telephone encounter Dewayne Chung MD Work Phone: [facility] [place] Comment on above: requesting medicatio n today Start: 2021 Telephone encounter Padmini DUFFY-C Work Phone: [facility] [place] Comment on above: Results Start: 12-09-2021 Telephone encounter Padmini DUFFY-C Work Phone: [facility] [place] Comment on above: Results Start: 12-08-2021 Telephone encounter Padmini DUFFY-C Work Phone: [facility] [place] Comment on above: Orders Start: 12-08-2021 End: 12-08-2021 Patient encounter procedure Padmini Solorzano PA-C Work Phone: [facility] [place] Comment on above: Essential hypertensi on (Primary Dx); Mixed hyperlipidemia; Benign paroxysmal positional vertigo, unspecified laterality; Smoker; Depression, unspecified depression type; Class 3 severe obesity due to excess calories without serious comorbidity with body mass index (BMI) of 45.0 to 49.9 in adult (HCC); Pulmonary emphysema, unspecified emphysema type (HCC); Vitamin B12 deficiency; Recurrent major depressive disorder, in remission (HCC); Anxiety state; Urinary frequency; Screening mammogram for breast cancer Start: 09-16-2021 End: 09-16-2021 Patient encounter procedure Nettie Sanchez PA-C Work Phone: General Surgery Comment on above: Tubular adenoma (Enedina buzz Dx); Diverticulosis; Internal hemorrhoids; History of colonic diverticulitis Start: 08-13-2021 End: 08-14-2021 [facility] Start: 07-24-2021 End: 07-24-2021 Subsequent hospital visit by physician Douglas Corral MD Work Phone: Ambulatory Surgery Comment on above: History of colonic p olyps [Z86.010] Start: 07-10-2021 Telephone encounter Padmini tristan PA-C Work Phone: [facility] [place] Comment on above: Results Start: 06-30-2021 Telephone encounter Douglas ashford MD Work Phone: General Surgery Comment on above: 07-24-2021 COLON ASC Start: 06-23-2021 Telephone encounter Carl Bryant MA Family [facility] Comment on above: Results Start: 06-23-2021 End: 06-23-2021 Subsequent hospital visit by physician Bone Density [facility] Work Phone: Radiology Comment on above: Asymptomatic postmen opausal status [Z78.0] Start: 05-29-2021 Telephone encounter Padmini tristan PA-C Work Phone: Family [facility] [place] Comment on above: Results Start: 05-26-2021 End: 05-26-2021 Patient encounter procedure Padmini Solorzano PA-C Work Phone: [facility] [place] Comment on above: Medicare annual well ness visit, initial (Primary Dx); Advance directive discussed with patient; Essential hypertension; Mixed hyperlipidemia; Vitamin B12 deficiency; Recurrent major depressive disorder, in remission (HCC); Pulmonary emphysema, unspecified emphysema type (HCC); Gastroesophageal reflux disease without esophagitis; Overactive bladder; Class 3 severe obesity due to excess calories without serious comorbidity with body mass index (BMI) of 45.0 to 49.9 in adult (HCC); Smoker; Asymptomatic postmenopausal status; History of colonic polyps; Benign paroxysmal positional vertigo, unspecified laterality; Microscopic hematuria Start: 11-07-2020 End: 11-07-2020 Subsequent hospital visit by physician Xr [facility] [place] Work Phone: Radiology Comment on above: Cough [R05] Procedures Date Procedure Procedure Detail Performing Clinician Start: 02-16-2024 Lipid 1995 panel - S betsey or Plasma Screen [facility] Start: 11-08-2023 Radiologic exam ches t 2 views Keke aBe DOPER.HARMONIC ANALYST Work Phone: Start: 08-10-2023 Lipid 1996 panel - S betsey or Plasma Dewayne Chung MD Work Phone: Start: 05-29-2023 Computed tomography of abdomen and pelvis with intravenous contrast Start: 05-03-2023 Radiologic exam ches t 2 views Anamaria Gonzalez PA-C Work Phone: Start: 05-02-2023 INFLUENZA A&B MOLECU LAR (POC) Anamaria Gonzalez PA-C Work Phone: Start: 03-08-2023 Plain x-ray of pelvi s and lower extremity Start: 03-08-2023 X-ray of lumbar spin e, two or three views Start: 03-08-2023 Urine culture Start: 02-05-2023 Urnls dip stick/tabl et rgnt auto w/o microscopy Rosanna Worley DOPER.HARMONIC ANALYST Work Phone: Start: 11-16-2022 Radex ribs unilatera l 2 views Keke Bae DOPER.HARMONIC ANALYST Work Phone: Start: 11-16-2022 Radiologic exam ches t 2 views Keke Bae DOPER.HARMONIC ANALYST Work Phone: Start: 08-20-2022 CT LUNG SCREEN WO CHRISTO Kern DOPER.HARMONIC ANALYST Work Phone: Start: 07-04-2022 Bacteria identified in Blood by Culture Start: 06-26-2022 Brncdilat rspse spmt ry pre&post-brncdilat admn Dewayne Chung MD Work Phone: Start: 06-16-2022 Lipid 1996 panel - S betsey or Plasma Keke Bae DOPER.HARMONIC ANALYST Work Phone: Start: 06-15-2022 Radiologic exam ches t 2 views Dewayne Chung MD Work Phone: Start: 01-06-2022 COVID WITH FLUA+B, ROUTINE Dewayne Tomas DOPER.HARMONIC ANALYST Work Phone: Start: 07-24-2021 Colonoscopy flx dx w /collj spec when pfrmd Douglas Corral MD Work Phone: Start: 07-24-2021 Colonoscopy Douglas oneill MD Work Phone: Start: 06-23-2021 Dxa bone density deann dy 1/> sites axial skel Padmini Solorzano PA-C Work Phone: Start: 02-11-2021 Mammography Padmini tristan PA-C Work Phone: Start: 11-07-2020 Radiologic exam ches t 2 views Jenny Price DOPER.HARMONIC ANALYST Work Phone: Start: 06-16-2016 Colonoscopy Padmini tristan PA-C Work Phone: Bacteria identified in Blood by Culture Plan of Treatment Date Care Activity Detail Author Start: 07-04-2032 Urine microalbumin profile [facility] Start: 02-15-2029 Lipid panel Lipid Screening [facility] Start: 08-09-2028 Lipid panel Lipid Screening [facility] Start: 06-17-2027 Lipid 1996 panel - Serum or Plasma Lipid Screening [facility] Start: 06-17-2027 Lipid panel Lipid Screening [facility] Start: 06-17-2027 LIPID SCREEN LIPID SCREEN [facility] Start: 02-15-2027 Diabetes Screening Diabetes Screenin g [facility] Start: 12-08-2026 LIPID SCREEN LIPID SCREEN [facility] Start: 08-09-2026 Diabetes Screening Diabetes Screenin g [facility] Start: 07-24-2026 Colonoscopy COLONOSCOPY [facility] Start: 07-24-2026 COLORECTAL CANCER SCREENING COLORECTAL CANCER SCREENING [facility] Start: 04-22-2026 LIPID SCREEN LIPID SCREEN [facility] Start: 06-16-2025 DIABETES SCREEN DIABETES SCREEN [facility] Start: 06-16-2025 Diabetes Screening Diabetes Screenin g [facility] Start: 04-26-2025 BP Controlled (<130/80) BP Controlled (<130/80) [facility] Start: 04-10-2025 Annual PCP Team Chronic Disease Visit Annual PCP Team Chronic Disease Visit [facility] Start: 03-17-2025 Annual PCP Team Chronic Disease Visit Annual PCP Team Chronic Disease Visit [facility] Start: 03-17-2025 BP Controlled (<130/80) BP Controlled (<130/80) [facility] Start: 03-09-2025 Annual PCP Team Chronic Disease Visit Annual PCP Team Chronic Disease Visit [facility] Start: 02-17-2025 Screening for malignant neoplasm of breast Mammogram Screening [facility] Start: 02-15-2025 Annual PCP Team Chronic Disease Visit Annual PCP Team Chronic Disease Visit [facility] Start: 02-15-2025 Creatinine measurement Serum Creatin ine [facility] Start: 02-15-2025 Hepatitis B surface antibody level LDL Cholesterol [facility] Start: 01-25-2025 Annual PCP Team Chronic Disease Visit Annual PCP Team Chronic Disease Visit [facility] Start: 01-25-2025 BP Controlled (<130/80) BP Controlled (<130/80) [facility] Start: 12-15-2024 BP Controlled (<130/80) BP Controlled (<130/80) [facility] Start: 12-08-2024 DIABETES SCREEN DIABETES SCREEN [facility] Start: 10-10-2024 End: 10-10-2024 Patient encounter procedure Pulmonary Medicine Comment on above: 6 MTH F/U COPD Start: 09-28-2024 End: 09-28-2024 Patient encounter procedure Cat Scan Comment on above: LCS Start: 09-23-2024 BP Controlled (<130/80) BP Controlled (<130/80) [facility] Start: 09-23-2024 Screening for malignant neoplasm of lung Lung Cancer Screening [facility] Start: 09-18-2024 End: 09-18-2024 Patient encounter procedure [facility] [place] Comment on above: medicare wellness Start: 08-10-2024 Annual PCP Team Chronic Disease Visit Annual PCP Team Chronic Disease Visit [facility] Start: 08-10-2024 RSV Vaccine (1 - 1-dose 60+ series) RSV Vaccine (1 - 1-dose 60+ series) [facility] Comment on above: Postponed from 12/10 (Insurance Coverage) Start: 08-10-2024 RSV Vaccine (1 - Ris k 60-74 years 1-dose series) RSV Vaccine (1 - Risk 60-74 years 1-dose series) [facility] Comment on above: Postponed from 12/10 (Insurance Coverage) Start: 08-10-2024 Shingrix Vaccine (2 of 2) Shingrix Vaccine (2 of 2) [facility] Comment on above: Postponed from 08/10 (Insurance Coverage) Start: 08-09-2024 Complete blood count Hemoglobin/Surjit tocrit [facility] Start: 08-09-2024 Creatinine measurement Serum Creatin ine [facility] Start: 08-09-2024 Hepatitis B surface antibody level LDL Cholesterol [facility] Start: 07-24-2024 Colonoscopy COLONOSCOPY [facility] Start: 07-24-2024 COLORECTAL CANCER SCREENING COLORECTAL CANCER SCREENING [facility] Start: 07-24-2024 Screening for malignant neoplasm of colon [facility] Start: 07-18-2024 BP Controlled (<130/80) BP Controlled (<130/80) [facility] Start: 06-27-2024 End: 06-27-2024 ambulatory 06/27/2024 3:45 PM EDT OT/PT/Speech Visit [facility] [address] [place] [address] Griffin Garrison, PT [address] [place], [place] [id number] RE-EVAL [facility] Comment on above: RE-EVAL Start: 06-06-2024 End: 06-06-2024 ambulatory 06/06/2024 1:30 PM EDT OT/PT/Speech Visit [facility] [address] [place] [address] Griffin Garrison, PT [address] [place] [address] 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, G89.29] [facility] Comment on above: 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, G89.29] Start: 05-30-2024 End: 05-30-2024 ambulatory 05/30/2024 1:15 PM EDT OT/PT/Speech Visit [facility] [address] [place] [address] Verena Franklin, CENTRIFUGAL EXTRACTOR OPERATOR [address] [place] [address] 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, G89.29] [facility] Comment on above: 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, G89.29] Start: 05-23-2024 End: 05-23-2024 ambulatory 05/23/2024 1:30 PM EDT OT/PT/Speech Visit [facility] [address] [place] [address] Griffin Garrison, PT [address] [place] [address] 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, G89.29] [facility] Comment on above: 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, G89.29] Start: 05-16-2024 End: 05-16-2024 ambulatory 05/16/2024 11:45 AM EDT OT/PT/Speech Visit [facility] [address] [place] [address] Verena Franklin, CENTRIFUGAL EXTRACTOR OPERATOR [address] [place] [address] 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, G89.29] [facility] Comment on above: 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, G89.29] Start: 05-04-2024 End: 05-04-2024 ambulatory 05/04/2024 12:15 PM EST OT/PT/Speech Visit [facility] [address] [place] [address] Griffin Garrison, PT [address] [facility] [place] [place] [address] LVM & SENT MSG OFFERING 04/19 WITH GERSON OR RL-IF SHE TAKES 04/19, PLEASE HOLD TIME ON 04/21 FOR ANOTHER PATIENT TRYING TO MOVE UP SOONER [facility] Comment on above: LVM & SENT [facility] MSG OFFERING 04/19 WITH GERSON OR RL-IF SHE TAKES 04/19, PLEASE HOLD TIME ON 04/21 FOR ANOTHER PATIENT TRYING TO MOVE UP SOONER Start: 05-01-2024 BP Controlled (<130/80) BP Controlled (<130/80) [facility] Start: 04-27-2024 End: 04-27-2024 Patient encounter procedure 04/27/2024 2:30 PM EST Office Visit Neurology [address] [place] [address] Deonte Douglas APRN.HARMONIC ANALYST [address] [place] [address] Sleep F/U Neurology Comment on above: Sleep F/U Start: 04-22-2024 DIABETES SCREEN DIABETES SCREEN [facility] Start: 04-21-2024 End: 04-21-2024 ambulatory 04/21/2024 1:30 PM EST OT/PT/Speech Visit [facility] [address] [place] [address] Griffin Garrison, PT [address] [facility] [place] [place] [address] 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, G89.29] [facility] Comment on above: 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, G89.29] Start: 04-10-2024 End: 04-10-2024 Patient encounter procedure 04/10/2024 1:00 PM EST Office Visit [facility] [place] [address] [place] [address] Dewayne Chung MD [address] [place], [place] [id number] excisional biospy right forearm [facility] Comment on above: excisional biospy ri ght forearm Start: 04-06-2024 End: 04-06-2024 Patient encounter procedure 04/06/2024 2:00 PM EST Office Visit Neurology [address] [place] [address] Deonte Douglas, DOPER.HARMONIC ANALYST [address] [place] [address] Sleep F/U Neurology Comment on above: Sleep F/U Start: 03-31-2024 End: 03-31-2024 Patient encounter procedure 03/31/2024 2:00 PM EST Office Visit [facility] [address] [place] [address] Dewayne Chung MD [address] [place] [address] excisional biospy right forearm [facility] Comment on above: excisional biospy ri ght forearm Start: 03-30-2024 End: 03-30-2024 ambulatory 03/30/2024 2:00 PM EST OT/PT/Speech Visit [facility] [address] [place] [address] Griffin Garrison, PT [address] [place], [place] [address] 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, G89.29] [facility] Comment on above: 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, G89.29] Start: 03-27-2024 End: 03-27-2024 Patient encounter procedure 03/27/2024 1:20 PM EST Office Visit Family [facility] [address] [place] [address] Dewayne Chung MD [address] [facility] [place] [address] excisional biospy right forearm [facility] Comment on above: excisional biospy ri ght forearm Start: 03-22-2024 End: 03-22-2024 Patient encounter procedure 03/22/2024 11:30 AM EST Office Visit Pulmonary Medicine [address] [place] [address] Debi Santizo PABettyC [address] [place] [address] 2 month follow up Pulmonary Medicine Comment on above: 2 month follow up Start: 03-17-2024 End: 06-16-2024 CBC W Auto Differential panel - Blood COMPLETE BLOOD COUNT AND DIFFERENTIAL Lab Routine Stage 3a chronic kidney disease (HCC) Expected: 03/17/2024, Expires: 06/16/2024 [facility] Work Phone: Comment on above: Expected: 03/17/2024 , Expires: 06/16/2024 Start: 03-17-2024 End: 06-16-2024 Cobalamin (Vitamin B12) [Mass/volume] in Serum or Plasma VITAMIN B12 Lab Routine Medication management Expected: 03/17/2024, Expires: 06/16/2024 [facility] Comment on above: Expected: 03/17/2024 , Expires: 06/16/2024 Start: 03-17-2024 End: 06-16-2024 Comprehensive metabolic 2000 panel - Serum or Plasma COMPREHENSIVE METABOLIC PANEL Lab Routine Elevated hemoglobin A1c Expected: 03/17/2024, Expires: 06/16/2024 [facility] Comment on above: Expected: 03/17/2024 , Expires: 06/16/2024 Start: 03-17-2024 End: 06-16-2024 Hemoglobin A1c in Blood HEMOGLOBIN A1C Lab Routine Elevated hemoglobin A1c Expected: 03/17/2024, Expires: 06/16/2024 [facility] Comment on above: Expected: 03/17/2024 , Expires: 06/16/2024 Start: 03-17-2024 End: 06-16-2024 LIPID PANEL, NONFASTING LIPID PANEL, NONFASTING Lab Routine Mixed hyperlipidemia Expected: 03/17/2024, Expires: 06/16/2024 [facility] Comment on above: Expected: 03/17/2024 , Expires: 06/16/2024 Start: 03-17-2024 End: 06-16-2024 Magnesium [Mass/volume] in Serum or Plasma MAGNESIUM Lab Routine Medication management Expected: 03/17/2024, Expires: 06/16/2024 [facility] Comment on above: Expected: 03/17/2024 , Expires: 06/16/2024 Start: 03-17-2024 End: 06-16-2024 Thyrotropin [Units/volume] in Serum or Plasma THYROID STIMULATING HORMONE Lab Routine Medication management Expected: 03/17/2024, Expires: 06/16/2024 [facility] Comment on above: Expected: 03/17/2024 , Expires: 06/16/2024 Start: 03-17-2024 End: 06-16-2024 Urinalysis complete panel - Urine URINALYSIS, WITH MICROSCOPIC Lab Routine Essential hypertension Expected: 03/17/2024, Expires: 06/16/2024 [facility] Comment on above: Expected: 03/17/2024 , Expires: 06/16/2024 Start: 03-17-2024 End: 03-17-2024 Patient encounter procedure 03/17/2024 1:40 PM EST Office Visit Family Medicine [address] [phone] Allie Lemus APRN.[facility] [address] [place], [place] [id number] 2 week follow up routine [facility] [place] Comment on above: 2 week follow up rou ashley Start: 03-16-2024 End: 03-16-2024 Patient encounter procedure Neurology Comment on above: F/U Sleep F/U Start: 03-15-2024 End: 03-15-2024 Patient encounter procedure 03/15/2024 3:00 PM EST Office Visit Pulmonary Medicine [address] [place], [place] [phone] Debi Santizo PA-C [address] [place] [address] 2 month follow up Pulmonary Medicine Comment on above: 2 month follow up Start: 03-13-2024 End: 03-13-2024 Patient encounter procedure 03/13/2024 2:00 PM EST Office Visit [facility] [address] [place] [address] Allie Lemus APRN.HARMONIC ANALYST [address] [place] [address] 2 week follow up routine [facility] Comment on above: 2 week follow up rou ashley Start: 03-09-2024 End: 03-09-2024 ambulatory 03/09/2024 2:00 PM EST OT/PT/Speech Visit [facility] [address] [place] [address] Griffin Garrison, PT [address] [facility] [place] [address] 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, G89.29] [facility] Comment on above: 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, G89.29] Start: 03-09-2024 End: 03-09-2024 Patient encounter procedure 03/09/2024 1:00 PM EST Office Visit [facility] [address] [place], [place] [phone] Dewayne Chung MD [address] [place] [address] trigger finger injection Family [facility] Comment on above: trigger finger injec tion Start: 03-01-2024 Advance Directive Discussion Advance Directive Discussion [facility] Start: 02-25-2024 End: 02-25-2024 Patient encounter procedure 02/25/2024 1:20 PM EST Office Visit [facility] [address] [place], [place] [address] Allie Lemus APRN.HARMONIC ANALYST [address] [place] [address] 2 week follow up routine [facility] [place] Comment on above: 2 week follow up ivis ramirez Start: 02-18-2024 End: 02-18-2024 Patient encounter procedure 02/18/2024 12:50 PM EST Appointment Mammogram [address] [place] [address] Encounter for screening mammogram for breast cancer [Z12.31] Mammogram Comment on above: Encounter for screen ing mammogram for breast cancer [Z12.31] Start: 02-15-2024 End: 02-15-2024 ambulatory 02/15/2024 11:30 AM EST OT/PT/Speech Visit [facility] [address] [place] [id number] Rl Mahmood PT 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 [address] Padmini Solorzano PA-C [address] [facility] [place] [address] 6 month follow up Family Medicine Alyssa Comment on above: 6 month follow up Start: 02-06-2024 BP Controlled (<130/80) BP Controlled (<130/80) [facility] Start: 01-28-2024 End: 04-28-2024 Basic metabolic 2000 panel - Serum or Plasma BASIC METABOLIC PANEL Lab Routine Essential hypertension Mixed hyperlipidemia Stage 3a chronic kidney disease (HCC) Expected: 01/28/2024, Expires: 04/28/2024 [facility] Comment on above: Expected: 01/28/2024 , Expires: 04/28/2024 Start: 01-28-2024 End: 04-28-2024 Hemoglobin A1c in Blood HEMOGLOBIN A1C Lab Routine Elevated hemoglobin A1c Expected: 01/28/2024, Expires: 04/28/2024 [facility] Comment on above: Expected: 01/28/2024 , Expires: 04/28/2024 Start: 01-28-2024 End: 04-28-2024 LIPID PANEL, NONFASTING LIPID PANEL, NONFASTING Lab Routine Essential hypertension Mixed hyperlipidemia Coronary artery calcification Expected: 01/28/2024, Expires: 04/28/2024 [facility] Comment on above: Expected: 01/28/2024 , Expires: 04/28/2024 Start: 01-26-2024 End: 01-26-2024 Patient encounter procedure Family Medicine Alyssa Comment on above: sleep issues Start: 12-24-2023 End: 12-24-2023 Patient encounter procedure 12/24/2023 10:00 AM EDT Office Visit Neurology [address] [place], [place] [id number] Deonte Douglas APRN.HARMONIC ANALYST [address] [place] [address] F/U Neurology Comment on above: F/U Start: 12-16-2023 End: 03-16-2024 IgE [Units/volume] in Serum or Plasma IMMUNOGLOBULIN E Lab Routine Expected: 12/16/2023, Expires: 03/16/2024 [facility] Work Phone: Comment on above: Expected: 12/16/2023 , Expires: 03/16/2024 Start: 12-16-2023 End: 12-16-2023 Patient encounter procedure 12/16/2023 11:00 AM EDT Office Visit Pulmonary Medicine [address] [place], [place] [phone] Naomy Parker MD [address] [place], [place] [phone] MÓNICA (obstructive sleep apnea) [G47.33]; Nocturnal hypoxia [G47.34]; Chronic obstructive pulmonary disease, unspecified COPD type (HCC) [J44.9]; Moderate smoker (20 or less per day) [F17.210] Pulmonary Medicine Comment on above: MÓNICA (obstructive sle ep apnea) [G47.33]; Nocturnal hypoxia [G47.34]; Chronic obstructive pulmonary disease, unspecified COPD type (HCC) [J44.9]; Moderate smoker (20 or less per day) [F17.210] Start: 11-28-2023 BP Controlled (<130/80) BP Controlled (<130/80) [facility] Start: 11-17-2023 BP Controlled (<130/80) BP Controlled (<130/80) [facility] Start: 11-05-2023 Annual PCP Team Chronic Disease Visit Annual PCP Team Chronic Disease Visit [facility] Start: 11-05-2023 Shingrix Vaccine (1 of 2) Shingrix Vaccine (1 of 2) [facility] Comment on above: Postponed from 12/10 (Declined at this time) Start: 11-04-2023 End: 11-04-2023 Patient encounter procedure 11/04/2023 1:40 PM EDT Appointment Radiology [address] [place] [place] [phone] creening for osteoporosis [Z13.820] Radiology Comment on above: creening for osteopo rosis [Z13.820] Start: 10-31-2023 Influenza vaccination Influenza Vacc ine (#1) [facility] Start: 10-29-2023 ANNUAL PCP TEAM CHRONIC DISEASE VISIT ANNUAL PCP TEAM CHRONIC DISEASE VISIT [facility] Start: 10-29-2023 BP CONTROLLED (<130/80) BP CONTROLLED (<130/80) [facility] Start: 10-18-2023 End: 10-18-2023 Patient encounter procedure 10/18/2023 2:00 PM EDT Office Visit Pulmonary Medicine [address] [place] [address] Dorian Kern APRN.HARMONIC ANALYST [address] [place] [address] yearly LCS Pulmonary Medicine Comment on above: yearly LCS Start: 09-24-2023 End: 09-24-2023 Patient encounter procedure Neurology Comment on above: 2 month follow up yearly LDCT Start: 09-10-2023 End: 09-10-2023 Patient encounter procedure 09/10/2023 2:15 PM EDT Appointment Radiology [address] [place] [phone] creening for osteoporosis [Z13.820] Radiology Comment on above: creening for osteopo rosis [Z13.820] Start: 09-09-2023 ANNUAL PCP TEAM CHRONIC DISEASE VISIT ANNUAL PCP TEAM CHRONIC DISEASE VISIT [facility] Start: 08-26-2023 End: 09-24-2023 CT LUNG SCREEN WO IVCON CT LUNG SCREEN WO IVCON Radiology Routine Encounter for screening for lung cancer Tobacco use current Expected: 08/26/2023, Expires: 09/24/2023 [facility] Work Phone: Comment on above: Expected: 08/26/2023 , Expires: 09/24/2023 Start: 08-21-2023 Influenza vaccination LUNG CANCER SC REENING [facility] Start: 08-21-2023 Screening for malignant neoplasm of lung Lung Cancer Screening [facility] Start: 08-11-2023 End: 08-11-2023 Patient encounter procedure 08/11/2023 2:20 PM EDT Office Visit Family Medicine [facility]lyssa [address] [place] [address] Dewayne Chung MD [address] [place] [address] Wellness Exam Family Medicine [facility] Comment on above: Wellness Exam Start: 08-11-2023 Shingrix Vaccine (2 of 2) Shingrix Vaccine (2 of 2) [facility] Start: 08-07-2023 End: 11-06-2023 CBC W Auto Differential panel - Blood COMPLETE BLOOD COUNT AND DIFFERENTIAL Lab Routine Anxiety state Medication management Expected: 08/07/2023, Expires: 11/06/2023 [facility] Comment on above: Expected: 08/07/2023 , Expires: 11/06/2023 Start: 08-07-2023 End: 11-06-2023 Cobalamin (Vitamin B12) [Mass/volume] in Serum or Plasma VITAMIN B12 Lab Routine Gastroesophageal reflux disease without esophagitis Vitamin B12 deficiency Medication management Expected: 08/07/2023, Expires: 11/06/2023 [facility] Work Phone: Comment on above: Expected: 08/07/2023 , Expires: 11/06/2023 Start: 08-07-2023 End: 11-06-2023 Comprehensive metabolic 2000 panel - Serum or Plasma COMPREHENSIVE METABOLIC PANEL Lab Routine Essential hypertension Mixed hyperlipidemia Expected: 08/07/2023, Expires: 11/06/2023 [facility] Comment on above: Expected: 08/07/2023 , Expires: 11/06/2023 Start: 08-07-2023 End: 11-06-2023 Hemoglobin A1c in Blood HEMOGLOBIN A1C Lab Routine Elevated blood sugar Expected: 08/07/2023, Expires: 11/06/2023 [facility] Comment on above: Expected: 08/07/2023 , Expires: 11/06/2023 Start: 08-07-2023 End: 11-06-2023 LIPID PANEL, NONFASTING LIPID PANEL, NONFASTING Lab Routine Essential hypertension Mixed hyperlipidemia Expected: 08/07/2023, Expires: 11/06/2023 [facility] Comment on above: Expected: 08/07/2023 , Expires: 11/06/2023 Start: 08-07-2023 End: 11-06-2023 Magnesium [Mass/volume] in Serum or Plasma MAGNESIUM Lab Routine Gastroesophageal reflux disease without esophagitis Medication management Expected: 08/07/2023, Expires: 11/06/2023 [facility] Comment on above: Expected: 08/07/2023 , Expires: 11/06/2023 Start: 08-07-2023 End: 11-06-2023 Thyrotropin [Units/volume] in Serum or Plasma THYROID STIMULATING HORMONE Lab Routine Anxiety state Medication management Expected: 08/07/2023, Expires: 11/06/2023 [facility] Comment on above: Expected: 08/07/2023 , Expires: 11/06/2023 Start: 08-07-2023 End: 11-06-2023 Urinalysis complete panel - Urine URINALYSIS, WITH MICROSCOPIC Lab Routine Essential hypertension Mixed hyperlipidemia Expected: 08/07/2023, Expires: 11/06/2023 [facility] Comment on above: Expected: 08/07/2023 , Expires: 11/06/2023 Start: 07-21-2023 ANNUAL PCP TEAM CHRONIC DISEASE VISIT ANNUAL PCP TEAM CHRONIC DISEASE VISIT [facility] Start: 07-21-2023 BP CONTROLLED (<130/80) BP CONTROLLED (<130/80) [facility] Start: 07-19-2023 End: 07-19-2023 Patient encounter procedure 07/19/2023 10:30 AM EDT Office Visit Neurology [address] [place] [address] Deonte Douglas, WING.HARMONIC ANALYST [address] [place] [address] follow up Neurology Comment on above: follow up Start: 07-14-2023 ANNUAL PCP TEAM CHRONIC DISEASE VISIT ANNUAL PCP TEAM CHRONIC DISEASE VISIT [facility] Start: 07-10-2023 ANNUAL PCP TEAM CHRONIC DISEASE VISIT ANNUAL PCP TEAM CHRONIC DISEASE VISIT [facility] Start: 07-10-2023 BP CONTROLLED (<130/80) BP CONTROLLED (<130/80) [facility] Start: 07-07-2023 ANNUAL PCP TEAM CHRONIC DISEASE VISIT ANNUAL PCP TEAM CHRONIC DISEASE VISIT [facility] Start: 07-05-2023 ANNUAL PCP TEAM CHRONIC DISEASE VISIT ANNUAL PCP TEAM CHRONIC DISEASE VISIT [facility] Start: 07-05-2023 BP CONTROLLED (<130/80) BP CONTROLLED (<130/80) [facility] Start: 06-25-2023 BP CONTROLLED (<130/80) BP CONTROLLED (<130/80) [facility] Start: 06-17-2023 Hepatitis B surface antibody level LDL CHOLESTEROL [facility] Start: 06-16-2023 ANNUAL PCP TEAM CHRONIC DISEASE VISIT ANNUAL PCP TEAM CHRONIC DISEASE VISIT [facility] Start: 06-16-2023 COVID-19 VACCINE (3 - Booster for Pfizer series) COVID-19 VACCINE (3 - Booster for Pfizer series) [facility] Comment on above: Postponed from 12/04 (Declined at this time) Start: 06-16-2023 COVID-19 VACCINE (3 - Pfizer series) COVID-19 VACCINE (3 - Pfizer series) [facility] Comment on above: Postponed from 12/04 (Declined at this time) Start: 05-29-2023 End: 05-29-2023 [facility] Start: 05-29-2023 Bacteria identified in Urine by Culture [facility] Start: 03-08-2023 [facility] Start: 03-01-2023 Advance Directive Discussion Advance Directive Discussion [facility] Start: 12-08-2022 ANNUAL PCP TEAM CHRONIC DISEASE VISIT ANNUAL PCP TEAM CHRONIC DISEASE VISIT [facility] Start: 12-08-2022 Zoledronic acid therapy ALPHA-1 ANTITRYPSIN DEFICIENCY SCREENING [facility] Comment on above: Postponed from 12/10 (Declined at this time) Start: 10-30-2022 Covid-19 Vaccine () Covid-19 Vaccine () [facility] Start: 10-30-2022 Influenza vaccination [facility] Start: 10-17-2022 Simple rpr scalp/neck/ax/genit/tr unk 7.6-12.5cm RPR S/N/AX/GEN/TRK7.6-12.5CM [facility] Start: 07-06-2022 Incision & drainage abscess complicated/multiple DRAINAGE OF SKIN ABSCESS [facility] Start: 07-04-2022 Incision & drainage abscess simple/single DRAINAGE OF SKIN ABSCESS [facility] Start: 07-04-2022 End: 07-04-2022 Blood culture [facility] Start: 06-18-2022 End: 08-18-2022 Basic metabolic 2000 panel - Serum or Plasma BASIC METABOLIC PNL Lab Routine Renal insufficiency Expected: 06/18/2022, Expires: 08/18/2022 [facility] Work Phone: Comment on above: Expected: 06/18/2022 , Expires: 08/18/2022 Start: 06-15-2022 End: 08-15-2022 CBC W Auto Differential panel - Blood CBC + DIFF Lab Routine Anxiety state Medication management Expected: 06/15/2022, Expires: 08/15/2022 [facility] Work Phone: Comment on above: Expected: 06/15/2022 , Expires: 08/15/2022 Start: 06-15-2022 End: 08-15-2022 Cobalamin (Vitamin B12) [Mass/volume] in Serum or Plasma VITAMIN B12 BLOOD Lab Routine Gastroesophageal reflux disease without esophagitis Vitamin B12 deficiency Medication management Expected: 06/15/2022, Expires: 08/15/2022 [facility] Work Phone: Comment on above: Expected: 06/15/2022 , Expires: 08/15/2022 Start: 06-15-2022 End: 08-15-2022 Comprehensive metabolic 2000 panel - Serum or Plasma COMP METABOLIC PANEL Lab Routine Essential hypertension Mixed hyperlipidemia Expected: 06/15/2022, Expires: 08/15/2022 [facility] Work Phone: Comment on above: Expected: 06/15/2022 , Expires: 08/15/2022 Start: 06-15-2022 End: 08-15-2022 Lipid 1996 panel - Serum or Plasma LIPID PANEL BASIC Lab Routine Essential hypertension Mixed hyperlipidemia Expected: 06/15/2022, Expires: 08/15/2022 [facility] Work Phone: Comment on above: Expected: 06/15/2022 , Expires: 08/15/2022 Start: 06-15-2022 End: 08-15-2022 Magnesium [Mass/volume] in Serum or Plasma MAGNESIUM BLD Lab Routine Gastroesophageal reflux disease without esophagitis Medication management Expected: 06/15/2022, Expires: 08/15/2022 [facility] Work Phone: Comment on above: Expected: 06/15/2022 , Expires: 08/15/2022 Start: 06-15-2022 End: 08-15-2022 Urinalysis complete panel - Urine URINALYSIS, WITH MICROSCOPIC Lab Routine Essential hypertension Mixed hyperlipidemia Expected: 06/15/2022, Expires: 08/15/2022 [facility] Work Phone: Comment on above: Expected: 06/15/2022 , Expires: 08/15/2022 Start: 05-26-2022 ANNUAL PCP TEAM CHRONIC DISEASE VISIT ANNUAL PCP TEAM CHRONIC DISEASE VISIT [facility] Start: 03-01-2022 ADVANCE DIRECTIVE DISCUSSION ADVANCE DIRECTIVE DISCUSSION [facility] Start: 02-11-2022 Mammography [facility] Start: 02-11-2022 Screening for malignant neoplasm of breast Mammogram Screening [facility] Start: 12-09-2021 End: 02-08-2022 Bacteria identified in Urine by Culture URINE CULTURE Microbiology Routine Urinary frequency Expected: 12/09/2021, Expires: 02/08/2022 [facility] Work Phone: Comment on above: Expected: 12/09/2021 , Expires: 02/08/2022 Start: 12-09-2021 End: 02-08-2022 Urinalysis complete panel - Urine URINALYSIS, WITH MICROSCOPIC Lab Routine Urinary frequency Expected: 12/09/2021, Expires: 02/08/2022 [facility] Work Phone: Comment on above: Expected: 12/09/2021 , Expires: 02/08/2022 Start: 12-08-2021 End: 02-07-2022 Bacteria identified in Urine by Culture URINE CULTURE Microbiology Routine Urinary frequency Expected: 12/08/2021, Expires: 02/07/2022 [facility] Work Phone: Comment on above: Expected: 12/08/2021 , Expires: 02/07/2022 Start: 12-08-2021 End: 02-07-2022 CBC W Auto Differential panel - Blood [facility] Work Phone: Comment on above: Expected: 12/08/2021 , Expires: 02/07/2022 Start: 12-08-2021 End: 02-07-2022 Comprehensive metabolic 2000 panel - Serum or Plasma [facility] Work Phone: Comment on above: Expected: 12/08/2021 , Expires: 02/07/2022 Start: 12-08-2021 End: 02-07-2022 LIPID PANEL, NONFASTING [facility] Work Phone: Comment on above: Expected: 12/08/2021 , Expires: 02/07/2022 Start: 12-08-2021 End: 02-07-2022 Urinalysis complete panel - Urine URINALYSIS, WITH MICROSCOPIC Lab Routine Urinary frequency Expected: 12/08/2021, Expires: 02/07/2022 [facility] Work Phone: Comment on above: Expected: 12/08/2021 , Expires: 02/07/2022 Start: 10-30-2021 Influenza vaccination [facility] Start: 08-13-2021 BP CONTROLLED (<130/80) BP CONTROLLED (<130/80) [facility] Start: 08-13-2021 Urine microalbumin profile DTAP,TDAP,TD (2 - Td or Tdap) [facility] Comment on above: Postponed from 05/14 (Insurance Coverage) Start: 06-16-2021 Colonoscopy COLONOSCOPY [facility] Start: 06-16-2021 COLORECTAL CANCER SCREENING COLORECTAL CANCER SCREENING [facility] Start: 06-12-2021 End: 08-12-2021 Bacteria identified in Urine by Culture URINE CULTURE Microbiology Routine Recurrent UTI (urinary tract infection) Expected: 06/12/2021, Expires: 08/12/2021 [facility] Work Phone: Comment on above: Expected: 06/12/2021 , Expires: 08/12/2021 Start: 05-26-2021 End: 07-26-2021 Urinalysis complete panel - Urine [facility] Work Phone: Comment on above: Expected: 05/26/2021 , Expires: 07/26/2021 Start: 03-11-2021 COVID-19 VACCINE (3 - Booster for Pfizer series) COVID-19 VACCINE (3 - Booster for Pfizer series) [facility] Start: 12-04-2020 COVID-19 VACCINE (3 - Booster for Pfizer series) COVID-19 VACCINE (3 - Booster for Pfizer series) [facility] Start: 10-30-2020 Influenza vaccination INFLUENZA (#1) [facility] Start: 05-14-2020 Urine microalbumin profile DTAP,TDAP,TD (2 - Td or Tdap) [facility] Start: 09-15-2016 End: 09-15-2016 Radex hip unilateral with pelvis 2-3 views X-Ray, Hip, unilateral, with pelvis; 2-3 views [facility] Work Phone: Start: 2011 RSV Vaccine (1 - 1-dose 60+ series) RSV Vaccine (1 - 1-dose 60+ series) [facility] Start: 12-10-2001 Influenza vaccination LUNG CANCER SC REENING [facility] Start: 12-10-2001 SHINGRIX VACCINE (1 of 2) SHINGRIX VACCINE (1 of 2) [facility] Start: 12-10-1996 COLOGUARD (FIT-DNA) COLOGUARD (FIT-D NA) [facility] Start: 12-10-[address] [facility] Start: 12-10-1996 FECAL OCCULT BLOOD FECAL OCCULT BLOO D [facility] Start: 12-10-1996 Screening for malignant neoplasm of colon [facility] Start: 12-10-1996 SIGMOIDOSCOPY SIGMOIDOSCOPY [facility] Start: 12-10-1981 Zoledronic acid therapy ALPHA-1 ANTITRYPSIN DEFICIENCY SCREENING [facility] Bacteria identified in Blood by Culture Blood Culture [facility] Bacteria identified in Blood by Culture Blood Culture [facility] Bacteria identified in Urine by Culture URINE CULTURE Microbiology Routine Microscopic hematuria 05/26/2021 12:59 PM EDT [facility] Work Phone: Bacteria identified in Urine by Culture URINE CULTURE Microbiology Routine Cystitis with hematuria 02/05/2023 3:02 PM EST [facility] Work Phone: End: 09-09-2024 BD DXA TRABECULAR BONE SCORE (TBS) BD DXA TRABECULAR BONE SCORE (TBS) Radiology Routine Screening for osteoporosis Primary ovarian failure 1 Occurrences starting 08/11/2023 until 09/09/2024 [facility] Comment on above: 1 Occurrences starti ng 08/11/2023 until 09/09/2024 COVID & INFLUENZA A/ B & RSV NAAT, ROUTINE COVID & INFLUENZA A/B & RSV NAAT, ROUTINE Microbiology Routine Fever, unspecified fever cause Ordered: 05/02/2023 [facility] Work Phone: Comment on above: Ordered: 05/02/2023 COVID & INFLUENZA A/ B & RSV PCR, ROUTINE COVID & INFLUENZA A/B & RSV PCR, ROUTINE Microbiology Routine URI, acute Ordered: 11/08/2023 [facility] Work Phone: Comment on above: Ordered: 11/08/2023 CT Chest for screeni ng WO contrast CT LUNG SCREEN WO IVCON Radiology Routine Encounter for screening for lung cancer Tobacco use current 09/24/2023 12:28 PM EDT [facility] Work Phone: End: 11-16-2024 CT Chest for screening WO contrast CT LUNG SCREEN WO IVCON Radiology Routine Encounter for screening for lung cancer Tobacco use current 1 Occurrences starting 10/18/2023 until 11/16/2024 [facility] Work Phone: Comment on above: 1 Occurrences starti ng 10/18/2023 until 11/16/2024 End: 07-24-2023 CT LUNG SCREEN WO IVCON CT LUNG SCREEN WO IVCON Radiology Routine Encounter for screening for lung cancer Tobacco use current 1 Occurrences starting 06/24/2022 until 07/24/2023 [facility] Work Phone: Comment on above: 1 Occurrences starti ng 06/24/2022 until 07/24/2023 End: 11-18-2024 DBT Breast - bilateral screening YULIA SCREENING W VASQUEZ Radiology Routine Encounter for screening mammogram for breast cancer 1 Occurrences starting 10/20/2023 until 11/18/2024 [facility] Work Phone: Comment on above: 1 Occurrences starti ng 10/20/2023 until 11/18/2024 DBT Breast - bilater al screening YULIA SCREENING W VASQUEZ Radiology Routine Encounter for screening mammogram for breast cancer 02/18/2024 1:01 PM EST [facility] Work Phone: End: 06-25-2022 Dxa bone density study 1/> sites axial skel DXA-AXIAL SKELETON Radiology Routine Asymptomatic postmenopausal status 1 Occurrences starting 05/26/2021 until 06/25/2022 [facility] Work Phone: Comment on above: 1 Occurrences starti ng 05/26/2021 until 06/25/2022 End: 09-09-2024 DXA Skeletal system.axial Views for bone density DXA-AXIAL SKELETON Radiology Routine Screening for osteoporosis Primary ovarian failure 1 Occurrences starting 08/11/2023 until 09/09/2024 [facility] Work Phone: Comment on above: 1 Occurrences starti ng 08/11/2023 until 09/09/2024 DXA Skeletal system.axial Views for bone density DXA-AXIAL SKELETON Radiology Routine Screening for osteoporosis Primary ovarian failure 11/04/2023 2:16 PM EDT [facility] Work Phone: End: 09-09-2023 EXERCISE STRESS ECG (WITHOUT IMAGING) EXERCISE STRESS ECG (WITHOUT IMAGING) Cardiology Routine Coronary artery calcification SOB (shortness of breath) Decreased stamina Family history of early CAD 1 Occurrences starting 09/08/2022 until 09/09/2023 [facility] Work Phone: Comment on above: 1 Occurrences starti ng 09/08/2022 until 09/09/2023 End: 06-15-2023 HOME SLEEP APNEA TEST (HSAT) HOME SLEEP APNEA TEST (HSAT) Procedures Routine Essential hypertension Class 3 severe obesity due to excess calories without serious comorbidity with body mass index (BMI) of 45.0 to 49.9 in adult ([facility]) Hypersomnolence Snores 1 Occurrences starting 06/15/2022 until 06/15/2023 [facility] Work Phone: Comment on above: 1 Occurrences starti ng 06/15/2022 until 06/15/2023 End: 12-18-2023 YULIA SCREENING YULIA SCREENING Radiology Routine Encounter for screening mammogram for breast cancer 1 Occurrences starting 11/18/2022 until 12/18/2023 [facility] Work Phone: Comment on above: 1 Occurrences starti ng 11/18/2022 until 12/18/2023 OXIMETRY - NOCTURNAL OXIMETRY - NOCTURNAL Procedures Routine MÓNICA (obstructive sleep apnea) Sleep related hypoxia Ordered: 11/27/2022 [facility] Work Phone: Comment on above: Ordered: 11/27/2022 End: 09-06-2023 PAP TITRATION PSG (CPAP, BIPAP, ASV) PAP TITRATION PSG (CPAP, BIPAP, ASV) Procedures Routine MÓNICA (obstructive sleep apnea) Sleep related hypoxia Class 3 severe obesity with body mass index (BMI) of 45.0 to 49.9 in adult, unspecified obesity type, unspecified whether serious comorbidity present ([facility]) 1 Occurrences starting 08/07/2022 until 09/06/2023 [facility] Work Phone: Comment on above: 1 Occurrences starti ng 08/07/2022 until 09/06/2023 Patient Education [facility] Work Phone: Patient referral [facility] Work Phone: End: 02-05-2023 Radiologic exam chest 2 views XR CHEST 2V FRONTAL/LAT Radiology STAT Acute cough 1 Occurrences starting 01/06/2022 until 02/05/2023 [facility] Work Phone: Comment on above: 1 Occurrences starti ng 01/06/2022 until 02/05/2023 End: 07-15-2023 Radiologic exam chest 2 views XR CHEST 2V FRONTAL/LAT Radiology Routine Cough, persistent 1 Occurrences starting 06/15/2022 until 07/15/2023 [facility] Work Phone: Comment on above: 1 Occurrences starti ng 06/15/2022 until 07/15/2023 Radiologic exam ches t 2 views XR CHEST 2V FRONTAL/LAT Radiology Routine Cough, persistent 06/15/2022 4:33 PM EDT [facility] Work Phone: SARS-CoV-2 (COVID-19 ) RNA [Presence] in Respiratory specimen by DAYANNA with probe detection COVID NAAT, UPPER RESPIRATORY, ROUTINE Microbiology Routine URI, acute 11/16/2022 2:25 PM EDT [facility] Work Phone: End: 01-07-2023 Screening mammography [facility] YULIA SCREENING Radiology Routine Screening mammogram for breast cancer 1 Occurrences starting 12/08/2021 until 01/07/2023 [facility] Work Phone: Comment on above: 1 Occurrences starti ng 12/08/2021 until 01/07/2023 End: 07-15-2023 SPIROMETRY - BASELINE AND POST DILATOR SPIROMETRY - BASELINE AND POST DILATOR PFT Routine Smoker Pulmonary emphysema, unspecified emphysema type (HCC) Cough, persistent 1 Occurrences starting 06/15/2022 until 07/15/2023 [facility] Work Phone: Comment on above: 1 Occurrences starti ng 06/15/2022 until 07/15/2023 SPIROMETRY - BASELIN E AND POST DILATOR SPIROMETRY - BASELINE AND POST DILATOR PFT Routine Smoker Pulmonary emphysema, unspecified emphysema type (HCC) Cough, persistent 06/26/2022 1:06 PM EDT [facility] Work Phone: SURGICAL PATHOLOGY [facility] Work Phone: Comment on above: Release Upon Orderin g for 1 Occurrences starting 07/24/2021, 1 completed End: 05-31-2024 XR Chest PA and Lateral XR CHEST 2V FRONTAL/LAT Radiology STAT Fever, unspecified fever cause 1 Occurrences starting 05/02/2023 until 05/31/2024 [facility] Work Phone: Comment on above: 1 Occurrences starti ng 05/02/2023 until 05/31/2024 [facility] Immunizations Immunization Date Immunization Notes Care Provider [facility] 02-16-2024 influenza, high dose seasonal, preservative-free Dewayne Chung MD Work Phone: [facility] 10-12-2023 zoster vaccine recombinant Dorian Kern DOPER.HARMONIC ANALYST Work Phone: [facility] 08-11-2023 pneumococcal Conjuga te, unspecified formulation Dewayne Chung MD Work Phone: [facility] 08-11-2023 pneumococcal conjuga te (PCV20) vaccine, 20 valent (PREVNAR 20) Dewayne Chung MD Work Phone: [facility] 06-16-2023 zoster vaccine recombinant Jenny Mortensen MA [facility] 11-04-2022 influenza (HD-IIV4) vaccine, age 65+ yr, high dose, quadrivalent, PF (FLUZONE HIGH-DOSE) Keke Bae APRN.HARMONIC ANALYST Work Phone: [facility] 11-04-2022 influenza virus vacc ine, unspecified formulation Deonte Setlla DIMAS.HARMONIC ANALYST Work Phone: [facility] 07-04-2022 tetanus toxoid, redu carley diphtheria toxoid, and acellular pertussis vaccine, adsorbed [facility] 10-09-2020 COVID-19 original vaccine, age 12+ yr, monovalent (PFIZER-BIONTECH - PURPLE TOP) Yan Peterson MD Work Phone: [facility] 09-18-2020 COVID-19 original vaccine, age 12+ yr, monovalent (PFIZER-BIONTECH - PURPLE TOP) Yan Peterson MD Work Phone: [facility] 12-22-2019 influenza, high-dose , quadrivalent vaccine (FLUZONE HIGH DOSE QUADRIVALENT) Padmini Solorzano PA-C Work Phone: [facility] Work Phone: 01-16-2019 pneumococcal conjuga te vaccine, 13 valent Padmini Solorzano PA-C Work Phone: [facility] 11-23-2018 influenza, high dose seasonal, preservative-free Padmini Solorzano PA-C Work Phone: [facility] Work Phone: 06-29-2017 pneumococcal polysaccharide vaccine, 23 valent Padmini Solorzano PA-C Work Phone: [facility] Work Phone: 06-29-2017 Pneumococcal Vaccine [facility] Work Phone: 06-29-2017 pneumococcal vaccine , unspecified formulation [facility] 02-23-2017 influenza, high dose seasonal, preservative-free Padmini Solorzano PA-C Work Phone: [facility] 01-20-2016 influenza, injectabl e, quadrivalent, contains preservative Padmini Solorzano PA-C Work Phone: [facility] 03-15-2015 influenza, injectabl e, quadrivalent, contains preservative Padmini Solorzano PA-C Work Phone: [facility] 12-05-2013 influenza, high dose seasonal, preservative-free Padmini Solorzano PA-C Work Phone: [facility] 12-05-2013 pneumococcal polysaccharide vaccine, 23 valent Padmini Solorzano PA-C Work Phone: [facility] 05-14-2010 tetanus toxoid, redu carley diphtheria toxoid, and acellular pertussis vaccine, adsorbed Padmini Solorzano PA-C Work Phone: [facility] 12-31-2008 influenza virus vacc ine, unspecified formulation Padmini Solorzano PA-C Work Phone: [facility] Payers Date Payer Category Payer Medicaid [id number] 2023 Self-pay [id number] 2022 Medicare (Managed Care) [facility] DUAL COMPLETE HMO POS SNP [id number] 2022 Unknown [id number] 2017 Medicare UHC MEDICARE UHC DUAL COMPLETE HMO SNP [id number] 2017-Present [phone] [address] [place] [address] Medicare [id number] 2017 Medicare [id number] 2017 [place] [id number] 2017-Present [phone] [address] [place] [address] Medicaid [id number] 2015 Unknown [id number] Medicare [id number] Unknown [id number] Unknown [id number] Unknown [id number] Unknown [id number] Social History Date Type Detail Facility Start: 03-01-1967 End: 10-18-2023 Tobacco smoking status NHIS Smokes tobacco daily [facility] Work Phone: Start: [birth year]-01-1966 History of tobacco use Cigarette Smo ker [facility] Work Phone: Start: 05-26-2021 End: 04-26-2024 Alcohol intake Current drinker of alcohol (finding) [facility] Start: 06-11-2017 History SDOH Alcohol Comment rare [facility] Start: 04-28-2010 End: 12-08-2021 Tobacco Comment recently cut back to 2 ppd [facility] Start: 1950 Sex Assigned At Not on file [facility] Start: 10-08-2020 End: 01-06-2022 Exposure to SARS-CoV-2 (event) Not sure [facility] Start: 08-13-2021 End: 05-29-2023 Tobacco smoking status NHIS Unknown if ever smoked [facility] Start: 07-13-2017 Cigarettes [facility] Start: 1950 Sex Assigned At Female [facility] Start: 12-08-2021 End: 07-09-2022 Cigarettes smoked current (pack per day) - Reported 0.4 [facility] Work Phone: Start: 12-08-2021 End: 10-18-2023 Tobacco use and exposure Smokeless tobacco non-user [facility] Start: 07-09-2022 End: 09-08-2022 Tobacco use panel [facility] Work Phone: Adult Depression Screening Assessment 4 [facility] Work Phone: Start: 07-01-2017 Rare [facility] Start: 07-01-2017 None [facility] Start: 07-01-2017 Alone [facility] How often to you hav e a drink containing alcohol? Never [facility] Medical Equipment Procedure Code Equipment Code Equipment Origin al Text Equipment Identifier Dates Jes-Ts-Q-Kind Implant - [id number] Start: 06-23-2017 Liner 36mm 0d F X3 7.9mm Acetabular Hip - [id number] Start: 06-23-2017 Head V40 36mm +2 .5mm Offset Taper Biolox Delta Femoral Hip - [id number] Start: 06-23-2017 Stem Accolade Ii 4 127d Femoral - [id number] Start: 06-23-2017 Functional Status Date Assessment Result Facility 06-25-2017 Are you deaf, or do you have serious difficulty hearing No 06/25/2017 2:05 PM Joya Clay RN No [facility] 06-25-2017 Are you blind, or do you have serious difficulty seeing, even when wearing glasses No 06/25/2017 2:05 PM Joya Clay RN No [facility] 06-25-2017 Do you have serious difficulty walking or climbing stairs No 06/25/2017 2:05 PM Joya Clay RN No [facility] 06-25-2017 Do you have difficul ty dressing or bathing No 06/25/2017 2:05 PM EDT Joya Begum RN No [facility] 06-25-2017 Because of a physica l, mental, or emotional condition, do you have difficulty doing errands alone such as visiting a physician's office or shopping No 06/25/2017 2:05 PM EDT Joya Begum RN No [facility] Mental Status Date Assessment Result Facility 07-04-2022 Cognitive function Level Of Cons ciousness Awake;Alert;Appropriate;Fol lows Commands [facility] Work Phone: 06-25-2017 Because of a physica l, mental, or emotional condition, do you have serious difficulty concentrating, remembering, or making decisions No 06/25/2017 2:05 PM EDT Joya Begum RN No [facility] Clinical Notes 06-23-2017 to 07-06-2024 Girffin Garrison, PT - 07/06/2024 2:54 PM Rosanna Matos, PT - 06/14/2024 6:04 PM Griffin Hutchinson, PT - 05/23/2024 1:32 PM EDTTelephone Encounter - Carl Bryant MA - 05/17/2024 4:54 PM EDT Note Date & Type Note Facility 07-06-2024 Note HNO ID: [id number] Author: GRIFFIN GARRISON PT Service: ? Author Type: Physical Therapist Type: Progress Notes Filed: 07/06/2024 15:36 Note Text: Episode Visit Count: 5 Therapist That Will Accept/Oversee The Plan Of Care: Griffin Garrison PT Start of Care Date: 05/04/24 Onset Date: 11/05/23 Plan of Care Certification Date: 05/04/24 Next Certification Due Date: 06/08/24 Patient Identified by Name and Date of : Yes REHABILITATION AND SPORTS THERAPY PHYSICAL THERAPY DISCONTINUANCE OF CARE PLAN OF CARE UPDATE: Assessment: Dianne Holly is discontinued from Physical Therapy services due to goal achievement and maximal benefit.. Patient was seen for 5 visits from Start of Care Date: 05/04/24 to 07/06/2024 and treatment included: Therapeutic exercise and Manual therapy. Goals updated 07/06/24 Goals for Episode of Care: established 05/04/24 Independent in home exercises. - MET Stand / Walk for 30 minutes without pain/symptoms. Sleep through night without pain/symptoms. - MET Pt will demo RA strength of 4/5 or greater to improve posture when standing/walking - MET Patient Goals: Improve her symptoms SUBJECTIVE: Things are feeling better. She has been sick lately, but better now. Pt lost 30 lbs. Has better tolerance to standing. She just gets tightness in her back near the spine with prolonged standing. Sitting gets rid of the tightness in the back. Patient Goals: Improve her symptoms Functional Limitations: nothing Prior Level of Function: Independent without limitations Intake Information: Prescription present Previous Treatment: Pain Management Pain: Pain Pain Level: 0 Pain Location: Low Back/Lumbar Spine- Midline PROMIS Scales 06/14/2024 Higher is Better Phys Func - T Score 38 (moderate dysfunction) Phys Func - Percentile 12 Self-Eff Symptom - T Score 49 (Average) Self-Eff Symptom - Percentile 46 Proxy-reported T-scores: mean of general population = 50. 5 points is clinically meaningfully difference Percentiles provide an indication of how the patient's score ranks in relation to the general population. Higher percentile rankings indicate better function/quality of life. 50th percentile is the average of the general population and indicates half of respondents had a worse score. OBJECTIVE MEASURES WITH LEVEL OF FUNCTION: Posture / Alignment Posture: Good Lumbar Spine AROM Lumbar Flexion: Normal Lumbar Extension: Normal Lumbar R Side-Bend: Normal, End range pain Lumbar L Side-Bend: Normal Lumbar R Rotation: Normal Lumbar L Rotation: Normal LE Flexibility Flexibility: Straight Leg Raise R SLR Flexibility: WNL L SLR Flexibility: WNL LE Strength Trunk Strength: RA strength of 4/5 TREATMENT: Therapeutic Exercise: 1: All objective measures taken 2: Seated TA bracing with sustained press holding 7# MB + alt may 01 3: Seated iso crunch into red swedish ball 2 x 10 holding 3 sec each Skilled Intervention: Patient was educated in proper exercise technique and purpose for exercises. Correct performance of therapeutic exercises was facilitated with verbal and visual cuing. Billing Therapeutic Exercise Treatment Minutes: 42 Skilled Treatment Time Minutes (timed and untimed codes): 42 Total Session Time (minutes): 42 Session Start Time : 1452 Session Stop Time : 1534 Griffin Garrison PT [facility] 07-06-2024 History of Present illness Narrative Images from the original note were not included. Episode Visit Count: 5 Therapist That Will Accept/Oversee The Plan Of Care: Griffin Garrison PT Start of Care Date: 05/04/24 Onset Date: 11/05/23 Plan of Care Certification Date: 05/04/24 Next Certification Due Date: 06/08/24 Patient Identified by Name and Date of : Yes REHABILITATION AND SPORTS THERAPY PHYSICAL THERAPY DISCONTINUANCE OF CARE PLAN OF CARE UPDATE: Assessment: Dianne Holly is discontinued from Physical Therapy services due to goal achievement and maximal benefit.. Patient was seen for 5 visits from Start of Care Date: 05/04/24 to 07/06/2024 and treatment included: Therapeutic exercise and Manual therapy. Goals updated 07/06/24 Goals for Episode of Care: established 05/04/24 Independent in home exercises. - MET Stand / Walk for 30 minutes without pain/symptoms. Sleep through night without pain/symptoms. - MET Pt will demo RA strength of 4/5 or greater to improve posture when standing/walking - MET Patient Goals: Improve her symptoms SUBJECTIVE: Things are feeling better. She has been sick lately, but better now. Pt lost 30 lbs. Has better tolerance to standing. She just gets tightness in her back near the spine with prolonged standing. Sitting gets rid of the tightness in the back. Patient Goals: Improve her symptoms Functional Limitations: nothing Prior Level of Function: Independent without limitations Intake Information: Prescription present Previous Treatment: Pain Management Pain: Pain Pain Level: 0 Pain Location: Low Back/Lumbar Spine- Midline PROMIS Scales 06/14/2024 Higher is Better Phys Func - T Score 38 (moderate dysfunction) Phys Func - Percentile 12 Self-Eff Symptom - T Score 49 (Average) Self-Eff Symptom - Percentile 46 Proxy-reported T-scores: mean of general population = 50. 5 points is clinically meaningfully difference Percentiles provide an indication of how the patient's score ranks in relation to the general population. Higher percentile rankings indicate better function/quality of life. 50th percentile is the average of the general population and indicates half of respondents had a worse score. OBJECTIVE MEASURES WITH LEVEL OF FUNCTION: Posture / Alignment Posture: Good Lumbar Spine AROM Lumbar Flexion: Normal Lumbar Extension: Normal Lumbar R Side-Bend: Normal, End range pain Lumbar L Side-Bend: Normal Lumbar R Rotation: Normal Lumbar L Rotation: Normal LE Flexibility Flexibility: Straight Leg Raise R SLR Flexibility: WNL L SLR Flexibility: WNL LE Strength Trunk Strength: RA strength of 4/5 TREATMENT: Therapeutic Exercise: 1: All objective measures taken 2: Seated TA bracing with sustained press holding 7# MB + alt april 3 x 12 3: Seated iso crunch into red swedish ball 2 x 10 holding 3 sec each Skilled Intervention: Patient was educated in proper exercise technique and purpose for exercises. Correct performance of therapeutic exercises was facilitated with verbal and visual cuing. Billing Therapeutic Exercise Treatment Minutes: 42 Skilled Treatment Time Minutes (timed and untimed codes): 42 Total Session Time (minutes): 42 Session Start Time : 1451 Session Stop Time : 1533 Griffin Garrison PT documented in this encounter [facility] 06-14-2024 Note HNO ID: [id number] Author: ROSANNA REYNOLDS PT Service: ? Author Type: Physical Therapist Type: Progress Notes Filed: 06/15/2024 07:53 Note Text: Episode Visit Count: 4 Therapist That Will Accept/Oversee The Plan Of Care: Griffin Garrison PT Start of Care Date: 05/04/24 Onset Date: 11/05/23 Plan of Care Certification Date: 05/04/24 Next Certification Due Date: 06/08/24 Patient Identified by Name and Date of : Yes REHABILITATION AND SPORTS THERAPY PHYSICAL THERAPY TREATMENT NOTE ASSESSMENT: Dianne Holly tolerated the session with fatigue and expected muscle soreness. She demonstrated improvements in understanding pain and what can cause flare ups. The patient will continue to benefit from ongoing skilled physical therapy to progress toward set goals. PLAN FOR NEXT VISIT: PN SUBJECTIVE: Pt states that her back is feeling a lot better, still not 100%. Pt states since last visit she came down with an illness and had a in the family as well. Had a lot of joint stiffness, rainy and cold weather do not help it. Pain: Pain Pain Level: 0 Pain Location: Low Back/Lumbar Spine- Midline OBJECTIVE MEASURES WITH LEVEL OF FUNCTION: TREATMENT: Therapeutic Exercise: 1: Seated TA activation 2x10 with 2 second holds 2: Seated PPT with alt LE marching 2x10 B 3: Seated TA set + stir-the pot with 7# med ball x 10 CW/CCW 4: Seated TA set 7# MB press 2 x 10 Skilled Intervention: Patient was educated in proper exercise technique and purpose for exercises. Skilled judgment was used in selection of appropriate interventions. Correct performance of therapeutic exercises was facilitated with verbal and visual cuing. Neuromuscular Re-Education: 1: PNE. See Chart. Skilled Intervention: Pain Intro: Patient introduced to the topic of pain neuroscience education and that improving knowledge of how pain works promotes improved recovery and rehabilitation. Current knowledge and understanding of patient on pain related topics was explored to create baseline. Homework: Patient received the pain knowledge quiz by SMITA Duncan as a means to begin addressing misconceptualizations of pain. Stress Responses to Pain (Lions and stress): Patient was educated regarding sympathetic nervous system topics as they pertain to pain, including stress biology, fight or flight response, the role of adrenaline and cortisol in pain, the body?s immune response and multiple output mechanisms. Metaphors were used to promote deep learning, and the role of self-care techniques useful in calming the sympathetic nervous system were addressed. Homework: Patient encouraged to identify and record stress issues they are dealing with on a daily basis since experiencing pain. Patient also encouraged to think about their personal response to a hypothetical large threat, and how the body?s response to pain is mimicking that response. Billing Therapeutic Exercise Treatment Minutes: 30 Neuromuscular Re-Education Treatment Minutes: 15 Skilled Treatment Time Minutes (timed and untimed codes): 45 Total Session Time (minutes): 45 Session Start Time : 1800 Session Stop Time : 1844 Verena Franklin, CROEY Reynolds, PT [facility] 06-14-2024 History of Present illness Narrative Episode Visit Count: 4 Therapist That Will Accept/Oversee The Plan Of Care: Griffin Garrison PT Start of Care Date: 05/04/24 Onset Date: 11/05/23 Plan of Care Certification Date: 05/04/24 Next Certification Due Date: 06/08/24 Patient Identified by Name and Date of : Yes REHABILITATION AND SPORTS THERAPY PHYSICAL THERAPY TREATMENT NOTE ASSESSMENT: Dianne Holly tolerated the session with fatigue and expected muscle soreness. She demonstrated improvements in understanding pain and what can cause flare ups. The patient will continue to benefit from ongoing skilled physical therapy to progress toward set goals. PLAN FOR NEXT VISIT: PN SUBJECTIVE: Pt states that her back is feeling a lot better, still not 100%. Pt states since last visit she came down with an illness and had a in the family as well. Had a lot of joint stiffness, rainy and cold weather do not help it. Pain: Pain Pain Level: 0 Pain Location: Low Back/Lumbar Spine- Midline OBJECTIVE MEASURES WITH LEVEL OF FUNCTION: TREATMENT: Therapeutic Exercise: 1: Seated TA activation 2x10 with 2 second holds 2: Seated PPT with alt LE marching 2x10 B 3: Seated TA set + stir-the pot with 7# med ball x 10 CW/CCW 4: Seated TA set 7# MB press 2 x 10 Skilled Intervention: Patient was educated in proper exercise technique and purpose for exercises. Skilled judgment was used in selection of appropriate interventions. Correct performance of therapeutic exercises was facilitated with verbal and visual cuing. Neuromuscular Re-Education: 1: PNE. See Chart. Skilled Intervention: Pain Intro: Patient introduced to the topic of pain neuroscience education and that improving knowledge of how pain works promotes improved recovery and rehabilitation. Current knowledge and understanding of patient on pain related topics was explored to create baseline. Homework: Patient received the pain knowledge quiz by SMITA Duncan as a means to begin addressing misconceptualizations of pain. Stress Responses to Pain (Lions and stress): Patient was educated regarding sympathetic nervous system topics as they pertain to pain, including stress biology, fight or flight response, the role of adrenaline and cortisol in pain, the body s immune response and multiple output mechanisms. Metaphors were used to promote deep learning, and the role of self-care techniques useful in calming the sympathetic nervous system were addressed. Homework: Patient encouraged to identify and record stress issues they are dealing with on a daily basis since experiencing pain. Patient also encouraged to think about their personal response to a hypothetical large threat, and how the body s response to pain is mimicking that response. Billing Therapeutic Exercise Treatment Minutes: 30 Neuromuscular Re-Education Treatment Minutes: 15 Skilled Treatment Time Minutes (timed and untimed codes): 45 Total Session Time (minutes): 45 Session Start Time : 1800 Session Stop Time : 1844 COREY Miller, PT documented in this encounter [facility] 05-23-2024 Note HNO ID: [id number] Author: GRIFFIN GARRISON PT Service: ? Author Type: Physical Therapist Type: Progress Notes Filed: 05/23/2024 14:14 Note Text: Episode Visit Count: 3 Therapist That Will Accept/Oversee The Plan Of Care: Griffin Garrison PT Start of Care Date: 05/04/24 Onset Date: 11/05/23 Plan of Care Certification Date: 05/04/24 Next Certification Due Date: 06/08/24 Patient Identified by Name and Date of : Yes REHABILITATION AND SPORTS THERAPY PHYSICAL THERAPY TREATMENT NOTE ASSESSMENT: Dianne Holly tolerated the session with expected muscle soreness. She demonstrated good form with all therapeutic exercises. The patient will continue to benefit from ongoing skilled physical therapy to progress toward set goals. PLAN FOR NEXT VISIT: Continue with lumbar flexion based exercises and core strengthening exercises. SUBJECTIVE: Has not had any sciatic nerve issues this past week. The back is not as sore. Pain: Pain Pain Location: Low Back/Lumbar Spine- Midline Post Treatment Pain Post Treatment Pain Location: Low Back/Lumbar Spine- Midline OBJECTIVE MEASURES WITH LEVEL OF FUNCTION: TREATMENT: Therapeutic Exercise: 2: Seated TA set 7# MB press 2 x 10 3: Seated, repeated lumbar flexion 2x10 4: Seated TA activation 2x10 with 2 second holds 5: Seated PPT with alt LE marching 2x10 B 6: Seated TA set + stir-the pot x 10 CW/CCW Skilled Intervention: Patient was educated in proper exercise technique and purpose for exercises. Provided written instruction for home exercise program to facilitate proper performance and compliance. Billing Therapeutic Exercise Treatment Minutes: 39 Skilled Treatment Time Minutes (timed and untimed codes): 39 Total Session Time (minutes): 39 Session Start Time : 1332 Session Stop Time : 1411 Griffin Garrison PT [facility] 05-23-2024 History of Present illness Narrative Episode Visit Count: 3 Therapist That Will Accept/Oversee The Plan Of Care: Griffin Garrison PT Start of Care Date: 05/04/24 Onset Date: 11/05/23 Plan of Care Certification Date: 05/04/24 Next Certification Due Date: 06/08/24 Patient Identified by Name and Date of : Yes REHABILITATION AND SPORTS THERAPY PHYSICAL THERAPY TREATMENT NOTE ASSESSMENT: Dianne Holly tolerated the session with expected muscle soreness. She demonstrated good form with all therapeutic exercises. The patient will continue to benefit from ongoing skilled physical therapy to progress toward set goals. PLAN FOR NEXT VISIT: Continue with lumbar flexion based exercises and core strengthening exercises. SUBJECTIVE: Has not had any sciatic nerve issues this past week. The back is not as sore. Pain: Pain Pain Location: Low Back/Lumbar Spine- Midline Post Treatment Pain Post Treatment Pain Location: Low Back/Lumbar Spine- Midline OBJECTIVE MEASURES WITH LEVEL OF FUNCTION: TREATMENT: Therapeutic Exercise: 2: Seated TA set 7# MB press 2 x 10 3: Seated, repeated lumbar flexion 2x10 4: Seated TA activation 2x10 with 2 second holds 5: Seated PPT with alt LE marching 2x10 B 6: Seated TA set + stir-the pot x 10 CW/CCW Skilled Intervention: Patient was educated in proper exercise technique and purpose for exercises. Provided written instruction for home exercise program to facilitate proper performance and compliance. Billing Therapeutic Exercise Treatment Minutes: 39 Skilled Treatment Time Minutes (timed and untimed codes): 39 Total Session Time (minutes): 39 Session Start Time : 1332 Session Stop Time : 1411 Griffin Garrison PT documented in this encounter [facility] 05-17-2024 Telephone encounter Note Faxed. Carl Bryant MA [facility] 05-17-2024 Miscellaneous Notes Faxed. Carl Bryant MA Patient is calling requesting Bone density results be faxed to Dr Velázquez at [facility]. documented in this encounter [facility] 05-17-2024 Telephone encounter Note Patient is calling requesting Bone density results be faxed to Dr Velázquez at [facility]. [facility] 05-16-2024 Note HNO ID: [id number] Author: GRIFFIN GARRISON PT Service: ? Author Type: Physical Therapist Type: Progress Notes Filed: 05/16/2024 13:48 Note Text: Episode Visit Count: 2 Therapist That Will Accept/Oversee The Plan Of Care: Griffin Garrison PT Start of Care Date: 05/04/24 Onset Date: 11/05/23 Plan of Care Certification Date: 05/04/24 Next Certification Due Date: 06/08/24 Patient Identified by Name and Date of : Yes REHABILITATION AND SPORTS THERAPY PHYSICAL THERAPY TREATMENT NOTE ASSESSMENT: Dianne Holly tolerated the session with fatigue and expected muscle soreness. She demonstrated improvements in tolerance to seated core stabilization strengthening. The patient will continue to benefit from ongoing skilled physical therapy to progress toward set goals. PLAN FOR NEXT VISIT: Try to keep exercises in sitting or standing due to PMH of vertigo with laying in supine SUBJECTIVE: Pt reports that her low back is really sore. Pt states that she has had 2 episodes this week of sciatic nerve issue vs. multiples times a day prior. Pain: Pain Pain Level: 3 (still increasing when having sciatic issue.) Pain Location: Low Back/Lumbar Spine- Midline Description: Sore Post Treatment Pain Post Treatment Pain Level: Better Post Treatment Pain Location: Low Back/Lumbar Spine- Midline OBJECTIVE MEASURES WITH LEVEL OF FUNCTION: Good form with seated and standing PPT. TREATMENT: Therapeutic Exercise: 1: *Seated PPT 2x10 with 2 second hold 2: Standing PPT 2x10 - good form 3: *Seated, repeated lumbar flexion 2x10 4: Seated TA activation 2x10 with 2 second holds 5: Seated PPT with alt LE marching 2x10 B Skilled Intervention: Patient was educated in proper exercise technique and purpose for exercises. Reviewed and educated patient on additions/changes for home exercise program as above (*). Skilled judgment was used in selection of appropriate interventions. Correct performance of therapeutic exercises was facilitated with verbal and visual cuing. [facility] Management: 1: Discussed elevating LE with prolonged standing. Skilled Intervention: Skilled judgment in the selection of proper modification for activity of daily living/home management based on clinical presentation, deficits, and needs. Reviewed patient specific diagnosis in relation to activities of daily living/home management. Activity progression based on professional judgement. Billing Therapeutic Exercise Treatment Minutes: 42 Self-Care/Home Management Treatment Minutes: 5 Skilled Treatment Time Minutes (timed and untimed codes): 47 Total Session Time (minutes): 47 Session Start Time : 1143 Session Stop Time : 1230 Verena Juarezpatrick, CENTRIFUGAL EXTRACTOR OPERATOR Griffin Garrison, PT [facility] 05-16-2024 History of Present illness Narrative Episode Visit Count: 2 Therapist That Will Accept/Oversee The Plan Of Care: Griffin Garrison PT Start of Care Date: 05/04/24 Onset Date: 11/05/23 Plan of Care Certification Date: 05/04/24 Next Certification Due Date: 06/08/24 Patient Identified by Name and Date of : Yes REHABILITATION AND SPORTS THERAPY PHYSICAL THERAPY TREATMENT NOTE ASSESSMENT: Dianne Holly tolerated the session with fatigue and expected muscle soreness. She demonstrated improvements in tolerance to seated core stabilization strengthening. The patient will continue to benefit from ongoing skilled physical therapy to progress toward set goals. PLAN FOR NEXT VISIT: Try to keep exercises in sitting or standing due to PMH of vertigo with laying in supine SUBJECTIVE: Pt reports that her low back is really sore. Pt states that she has had 2 episodes this week of sciatic nerve issue vs. multiples times a day prior. Pain: Pain Pain Level: 3 (still increasing when having sciatic issue.) Pain Location: Low Back/Lumbar Spine- Midline Description: Sore Post Treatment Pain Post Treatment Pain Level: Better Post Treatment Pain Location: Low Back/Lumbar Spine- Midline OBJECTIVE MEASURES WITH LEVEL OF FUNCTION: Good form with seated and standing PPT. TREATMENT: Therapeutic Exercise: 1: *Seated PPT 2x10 with 2 second hold 2: Standing PPT 2x10 - good form 3: *Seated, repeated lumbar flexion 2x10 4: Seated TA activation 2x10 with 2 second holds 5: Seated PPT with alt LE marching 2x10 B Skilled Intervention: Patient was educated in proper exercise technique and purpose for exercises. Reviewed and educated patient on additions/changes for home exercise program as above (*). Skilled judgment was used in selection of appropriate interventions. Correct performance of therapeutic exercises was facilitated with verbal and visual cuing. [facility] Management: 1: Discussed elevating LE with prolonged standing. Skilled Intervention: Skilled judgment in the selection of proper modification for activity of daily living/home management based on clinical presentation, deficits, and needs. Reviewed patient specific diagnosis in relation to activities of daily living/home management. Activity progression based on professional judgement. Billing Therapeutic Exercise Treatment Minutes: 42 Self-Care/Home Management Treatment Minutes: 5 Skilled Treatment Time Minutes (timed and untimed codes): 47 Total Session Time (minutes): 47 Session Start Time : 1143 Session Stop Time : 1230 COREY Miller PT documented in this encounter [facility] 05-04-2024 Note HNO ID: [id number] Author: GRIFFIN GARRISON PT Service: ? Author Type: Physical Therapist Type: Progress Notes Filed: 05/04/2024 13:06 Note Text: Episode Visit Count: 1 Therapist That Will Accept/Oversee The Plan Of Care: Griffin Garrison PT Start of Care Date: 05/04/24 Onset Date: 11/05/23 Plan of Care Certification Date: 05/04/24 Next Certification Due Date: 06/08/24 Patient Identified by Name and Date of : Yes REHABILITATION AND SPORTS THERAPY PHYSICAL THERAPY EVALUATION PLAN OF CARE: Assessment: Dianne Holly presents with chief complaint of LBP and sciatica that interferes with standing . The patient presents with impairments in independence in exercise, overall function, posture, and strength. Patient did not complete the PROMIS? (Patient Reported Outcome Measures Information System). Prognosis for therapy is Good due to: current objective clinical presentation . Pt demonstrates a lumbar flexion direction of preference. The patient will benefit from skilled therapy services to meet the goals established for this plan of care as noted below. Classification Pain Mechanism Classification: Neuropathic Low Back Pain Classification: Movement Control Goals for Episode of Care: established 05/04/24 Independent in home exercises. Stand / Walk for 30 minutes without pain/symptoms. Sleep through night without pain/symptoms. Pt will demo RA strength of 4/5 or greater to improve posture when standing/walking Patient Goals: Improve her symptoms Time Frame for Goals and Treatment : 06/29/24 Planned Interventions, Frequency, and Duration: Current Frequency: 1x/week Duration: 4 weeks Total Number of Visits Planned: 4 Planned Treatment Interventions: Therapeutic exercise (03818), Neuromuscular re-education (98395), Manual therapy (46521), Therapeutic activities (42886), Gait Training (11447), Self-senior care management (52229), Patient/Family/Caregiver Education PLAN FOR NEXT VISIT: Work on achieving a PPT in sitting Patient demonstrates good understanding of plan of care and treatment. The above goals and plan of care were discussed and agreed upon by patient/family. SUBJECTIVE: Went to a neurosurgeon at [facility]. She was told that she was to go through therapy and after a month of PT then he wanted the records. Was told her flexion-extension radiograph looks fine. 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 The MARTHA helped the back but it is back now and it is worse than ever. If she stands for 5 minutes then she is in a lot of pain. As soon as she sits down the pain is totally gone. The sciatic nerve pain can wake her up at night and she is not sure if she moves and this happens. Has trouble washing dishes for an extended period of time. She will bend forward to do the dishes to take some of the pressure off. Patient Goals: Improve her symptoms Functional Limitations: standing Prior Level of Function: Independent without limitations Intake Information: Prescription present Previous Treatment: Pain Management Pain: Pain Pain Level: 9 (when standing. 0/10 when sitting) Pain Location: Low Back/Lumbar Spine- Midline Description: (grabbing) OBJECTIVE MEASURES WITH LEVEL OF FUNCTION: Posture / Alignment Posture: Increased lumbar lordosis (Excessive anterior pelvic tilt) Lumbar Spine AROM Lumbar Flexion: Normal, Decreased pain Lumbar Extension: Normal, Increased pain Gait Gait Observation: Excessive APT when walking/standing Education: Education Learning Preferences: Demonstration, Explanation, Performance, Printed Materials Barriers: None Learning/educational needs: Home exercise program, Plan of Care, Changes in Plan of Care Education Provided: Yes, see treatment interventions for education provided Education Provided To: Patient Education Mode/Type: Demonstration, Explanation/Discussion, Literature/Printed Materials, Performance Response to Education/Teach Back: States/Identifies, Return Demonstration TREATMENT: PT Treatment Interventions: Therapeutic Exercise, [facility] Management Evaluation Therapeutic Exercise: 1: Discussed exam findings, purpose of the HEP and the HEP handout was provided to the pt. HEP discussed in detail with how to safely and properly perform each therapeutic exercise. 2: Hooklying PPT 2 x 10 3: Hooklying PPT + alt march x 10 Skilled Intervention: Patient was educated in proper exercise technique and purpose for exercises. Correct performance of therapeutic exercises was facilitated with verbal cuing. [facility] Management: 1: *Discussed proper posture of the cervical, thoracic, lumbar spine and pelvis to decrease strain on anatomical structures such as the facet joints, intervertebral discs, and hip/spinal ligaments to decrease overall pain and improve function. Discussed impoirtance of being able to maintain a aneutral spine in standing/walking to avoid LBP and sciatica. Discuss (more content not included)... [facility] 05-04-2024 History of Present illness Narrative Episode Visit Count: 1 Therapist That Will Accept/Oversee The Plan Of Care: Griffin Garrison PT Start of Care Date: 05/04/24 Onset Date: 11/05/23 Plan of Care Certification Date: 05/04/24 Next Certification Due Date: 06/08/24 Patient Identified by Name and Date of : Yes REHABILITATION AND SPORTS THERAPY PHYSICAL THERAPY EVALUATION PLAN OF CARE: Assessment: Dianne Holly presents with chief complaint of LBP and sciatica that interferes with standing . The patient presents with impairments in independence in exercise, overall function, posture, and strength. Patient did not complete the PROMIS (Patient Reported Outcome Measures Information System). Prognosis for therapy is Good due to: current objective clinical presentation . Pt demonstrates a lumbar flexion direction of preference. The patient will benefit from skilled therapy services to meet the goals established for this plan of care as noted below. Classification Pain Mechanism Classification: Neuropathic Low Back Pain Classification: Movement Control Goals for Episode of Care: established 05/04/24 Independent in home exercises. Stand / Walk for 30 minutes without pain/symptoms. Sleep through night without pain/symptoms. Pt will demo RA strength of 4/5 or greater to improve posture when standing/walking Patient Goals: Improve her symptoms Time Frame for Goals and Treatment : 06/29/24 Planned Interventions, Frequency, and Duration: Current Frequency: 1x/week Duration: 4 weeks Total Number of Visits Planned: 4 Planned Treatment Interventions: Therapeutic exercise (45351), Neuromuscular re-education (27286), Manual therapy (56359), Therapeutic activities (38703), Gait Training (35878), Self-senior care management (90972), Patient/Family/Caregiver Education PLAN FOR NEXT VISIT: Work on achieving a PPT in sitting Patient demonstrates good understanding of plan of care and treatment. The above goals and plan of care were discussed and agreed upon by patient/family. SUBJECTIVE: Went to a neurosurgeon at [facility]. She was told that she was to go through therapy and after a month of PT then he wanted the records. Was told her flexion-extension radiograph looks fine. 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 The MARTHA helped the back but it is back now and it is worse than ever. If she stands for 5 minutes then she is in a lot of pain. As soon as she sits down the pain is totally gone. The sciatic nerve pain can wake her up at night and she is not sure if she moves and this happens. Has trouble washing dishes for an extended period of time. She will bend forward to do the dishes to take some of the pressure off. Patient Goals: Improve her symptoms Functional Limitations: standing Prior Level of Function: Independent without limitations Intake Information: Prescription present Previous Treatment: Pain Management Pain: Pain Pain Level: 9 (when standing. 0/10 when sitting) Pain Location: Low Back/Lumbar Spine- Midline Description: (grabbing) OBJECTIVE MEASURES WITH LEVEL OF FUNCTION: Posture / Alignment Posture: Increased lumbar lordosis (Excessive anterior pelvic tilt) Lumbar Spine AROM Lumbar Flexion: Normal, Decreased pain Lumbar Extension: Normal, Increased pain Gait Gait Observation: Excessive APT when walking/standing Education: Education Learning Preferences: Demonstration, Explanation, Performance, Printed Materials Barriers: None Learning/educational needs: Home exercise program, Plan of Care, Changes in Plan of Care Education Provided: Yes, see treatment interventions for education provided Education Provided To: Patient Education Mode/Type: Demonstration, Explanation/Discussion, Literature/Printed Materials, Performance Response to Education/Teach Back: States/Identifies, Return Demonstration TREATMENT: PT Treatment Interventions: Therapeutic Exercise, [facility] Management Evaluation Therapeutic Exercise: 1: Discussed exam findings, purpose of the HEP and the HEP handout was provided to the pt. HEP discussed in detail with how to safely and properly perform each therapeutic exercise. 2: Hooklying PPT 2 x 10 3: Hooklying PPT + alt april Skilled Intervention: Patient was educated in proper exercise technique and purpose for exercises. Correct performance of therapeutic exercises was facilitated with verbal cuing. [facility] Management: 1: *Discussed proper posture of the cervical, thoracic, lumbar spine and pelvis to decrease strain on anatomical structures such as the facet joints, intervertebral discs, and hip/spinal ligaments to decrease overall pain and improve function. Discussed impoirtance of being able to maintain a aneutral spine in standing/walking to avoid LBP and sciatica. Discussed anatomy of the spine. Skilled Intervention: Skilled judgment in the selection of proper modification for activity of daily living/home management based on clinical presentation, deficits, and needs. Billing * Evaluation Low Complexity: 1 Unit Therapeutic Exercise Treatment Minutes: 14 Self-Care/Home Management Treatment Minutes: 10 Skilled Treatment Time Minutes (timed and untimed codes): 48 Total Session Time (minutes): 48 Session Start Time : 1201 Session Stop Time : 1249 Griffin Garrison PT documented in this encounter [facility] 05-01-2024 Note HNO ID: [id number] Author: CARL BRYANT MA Service: ? Author Type: Park Interpretive Specialist Type: Progress Notes Filed: 05/01/2024 16:33 Note Text: Scan on 04/27/2024 3:48 PM by ProviderYeni PA-C: Consultation - Orthopedics Carl Bryant MA' [facility] 05-01-2024 History of Present illness Narrative Scan on 04/27/2024 3:48 PM by ProviderYeni PA-C: Consultation - Orthopedics Carl Bryant MA' documented in this encounter [facility] 04-26-2024 Instructions Deonte Douglas APRN.CNP - 04/26/2024 2:01 PM EST Call me to let me know if you still have congestion from using CPAP [phone] ask for Sleep nurse documented in this encounter [facility] 04-26-2024 History of Present illness Narrative Images from the original note were not included. [facility] Center Follow up/ Established patient visit Date of last visit : 09/24/2023 The following Impression/Plan was copied and pasted from the patient's last [facility] visit on 09/04/23: IMPRESSION: Mónica (obstructive sleep apnea) (primary encounter diagnosis) Nocturnal hypoxia Chronic obstructive pulmonary disease, unspecified copd type (hcc) Moderate smoker (20 or less per day) Dianne Holly is a 72 year old female with PMH of at least moderate MÓNICA, nocturnal hypoxia, COPD, smoker. She wants to use her autoCPAP 13-20 cmH2O with O2 bleed in 1 LPM but she notes excessive phlegm when she uses PAP. PLAN: She would like to try a traditional FFM instead of the hybrid FFM, we'll check with [facility], order written Will refer to Pulm for their opinion on COPD playing a role in her not being able to tolerate her autoCPAP. She isn't getting supplemental O2 at night when not using PAP. Deonte Douglas, DOPER.HARMONIC ANALYST Here for follow up for MÓNIAC, still gets congested from APAP. Decreasing the humidity maybe helped a little bit. She uses mucinex if the congestion gets bad. Hasn't been using APAP, has been sleeping in recliner due to sciatica, APAP is by her bed (as his O2 bleed in). At last visit referred her to Pulm -- pt reports her breathing is much better on change of inhaler. She cut back on smoking, but didn't quit completely due to weight gain. SLEEP APNEA Sleep apnea type : MÓNICA, Most Recent Apnea-Hypopnea Index (AHI): 26 on HSAT in 06/2022 Treatment : PAP therapy DME: [employer] PAP History: Current PAP settin-20 cm H2O. With O2 1 LPM bleed in Reviewed objective PAP compliance data: Mask type: full face mask ---- PATIENT-ENTERED QUESTIONNAIRE SLEEP SCORES 11/09/2016 06/15/2022 PHQ-9 Score 9 9 09/21/2016 11/09/2016 11/09/2016 PROMIS Global Health - (T-Scores - the mean of general population = 50. Five points is a clinically meaningful difference.) Physical T-Score 32.4 32.4 Mental T-Score 38.8 36.3 36.3 ALLERGIES Allergen Reactions Flagyl [Metronidazo* Itching, Other: See Comments nausea/ throat swelling Ibuprofen Vomiting Hematemesis - [facility] 06/21/2012 Nickel Rash Can only wear gold earrings CURRENT MEDICATIONS: zottyulxiwk-bzcbjgjji-ihkhfupn (TRELEGY ELLIPTA) 100-62.5-25 mcg inhalation powder Inhale 1 Puff as instructed once daily. solifenacin (VESICARE) 5 mg tablet Take 1 tablet by mouth once daily. buPROPion SR (WELLBUTRIN SR) 150 mg 12 hr tablet Take 1 tablet by mouth once daily. cyanocobalamin (VITAMIN B-12) 1,000 mcg tab Take 1 tablet by mouth once daily. lisinopril-hydroCHLOROthiazide (ZESTORETIC) 20-12.5 mg per tablet Take 2 tablets by mouth once daily. pravastatin (PRAVACHOL) 40 mg tablet Take 1 tablet by mouth daily at bedtime. sertraline (ZOLOFT) 100 mg tablet Take 1.5 tablets by mouth every evening. verapamil SR (CALAN SR) 180 mg CR tablet Take 1.5 tablets by mouth once daily. magnesium glycinate 100 mg magnesium capsule Take 2 capsules by mouth daily at bedtime. melatonin 1 mg chew Take 1 mg by mouth at bedtime as needed for insomnia. albuterol HFA (PROVENTIL HFA, VENTOLIN HFA) 90 mcg/actuation inhaler Inhale 2 Puffs as instructed every 4 hours as needed. omeprazole (PRILOSEC) 20 mg capsule Take 1 capsule by mouth two times a day. CPAP/BIPAP/OTHER autoCPAP 13-20 cmH2O with 1.5 LPM O2 bleed in DME [employer] ondansetron orally disintegrating (ZOFRAN ODT) 4 mg disintegrating tablet Take 1 tablet by mouth every 8 hours as needed. MEDICAL SUPPLY BEDSIDE COMMODE. dx: right total hip replacement. z96.641 COMPOUNDED PRESCRIPTION Bedside Commode Dx: right total hip replacement Z96.641 PHYSICAL EXAMINATION: Vital Signs: BP 97/61 (BP Site: Left Arm, BP Position: Sitting, BP Cuff Size: Extra Large Adult) Pulse 78 Resp 18 Wt 120.2 kg (265 lb) SpO2 95% BMI 46.94 kg/m PHYSICAL EXAM: General appearance: pleasant, NAD Mental status: alert and oriented, able to provide own history Constitutional: obese Skin: No visible rashes on exposed skin Neuro: No focal deficits observed, no tremors IMPRESSION: Obstructive sleep apnea (primary encounter diagnosis) Nocturnal hypoxia Difficulty using continuous positive airway pressure (cpap) device Dianne Holly is a 73 year old female with at least moderate MÓNICA, nocturnal hypoxia, difficulty using autoCPAP, COPD, smoker, obesity, HTN, HLD, GERD, CKD, lumbar disc herniation PLAN: - Continue Auto CPAP at 13-20 cmH2O with 1 LPM O2 bleed in. Move machine to the recliner since that is where she has been sleeping lately. Let me know if the congestion persists while using PAP. - Remember to clean your mask and equipment regularly, as directed. - You should be eligible for new supplies approximately every 3-6 months, depending on your insurance coverage. Contact your [employer] company for new supplies as needed. - Follow up TBD Deonte Douglas APRN.STEPHANI documented in this encounter [facility] 04-26-2024 Note HNO ID: [id number] Author: DEONTE DOUGLAS APRN.CNP Service: ? Author Type: Nurse Practitioner Type: Progress Notes Filed: 04/26/2024 14:11 Note Text: [facility] Sleep Disorders Center Follow up/ Established patient visit Date of last visit : 09/24/2023 The following Impression/Plan was copied and pasted from the patient's last Sleep Disorders Center visit on 09/04/23: IMPRESSION: Mónica (obstructive sleep apnea) (primary encounter diagnosis) Nocturnal hypoxia Chronic obstructive pulmonary disease, unspecified copd type (hcc) Moderate smoker (20 or less per day) Dianne Holly is a 72 year old female with PMH of at least moderate MÓNICA, nocturnal hypoxia, COPD, smoker. She wants to use her autoCPAP 13-20 cmH2O with O2 bleed in 1 LPM but she notes excessive phlegm when she uses PAP. PLAN: She would like to try a traditional FFM instead of the hybrid FFM, we'll check with [facility], order written Will refer to Pulm for their opinion on COPD playing a role in her not being able to tolerate her autoCPAP. She isn't getting supplemental O2 at night when not using PAP. Deonte Stella, DOPER.HARMONIC ANALYST Here for follow up for MÓNICA, still gets congested from APAP. Decreasing the humidity maybe helped a little bit. She uses mucinex if the congestion gets bad. Hasn't been using APAP, has been sleeping in recliner due to sciatica, APAP is by her bed (as his O2 bleed in). At last visit referred her to Pulm -- pt reports her breathing is much better on change of inhaler. She cut back on smoking, but didn't quit completely due to weight gain. SLEEP APNEA Sleep apnea type : MÓNICA, Most Recent Apnea-Hypopnea Index (AHI): 26 on HSAT in 06/2022 Treatment : PAP therapy DME: [facility] PAP History: Current PAP settin-20 cm H2O. With O2 1 LPM bleed in Reviewed objective PAP compliance data: Mask type: full face mask PATIENT-ENTERED QUESTIONNAIRE SLEEP SCORES 11/09/2016 06/15/2022 PHQ-9 Score 9 9 09/21/2016 11/09/2016 11/09/2016 PROMIS Global Health - (T-Scores - the mean of general population = 50. Five points is a clinically meaningful difference.) Physical T-Score 32.4 32.4 Mental T-Score 38.8 36.3 36.3 ALLERGIES Allergen Reactions Flagyl [Metronidazo* Itching, Other: See Comments nausea/ throat swelling Ibuprofen Vomiting Hematemesis - [facility] 06/21/2012 Nickel Rash Can only wear gold earrings CURRENT MEDICATIONS: bsnlymhlcwt-dvkzaisqb-juogkysp (TRELEGY ELLIPTA) 100-62.5-25 mcg inhalation powder Inhale 1 Puff as instructed once daily. solifenacin (VESICARE) 5 mg tablet Take 1 tablet by mouth once daily. buPROPion SR (WELLBUTRIN SR) 150 mg 12 hr tablet Take 1 tablet by mouth once daily. cyanocobalamin (VITAMIN B-12) 1,000 mcg tab Take 1 tablet by mouth once daily. lisinopril-hydroCHLOROthiazide (ZESTORETIC) 20-12.5 mg per tablet Take 2 tablets by mouth once daily. pravastatin (PRAVACHOL) 40 mg tablet Take 1 tablet by mouth daily at bedtime. sertraline (ZOLOFT) 100 mg tablet Take 1.5 tablets by mouth every evening. verapamil SR (CALAN SR) 180 mg CR tablet Take 1.5 tablets by mouth once daily. magnesium glycinate 100 mg magnesium capsule Take 2 capsules by mouth daily at bedtime. melatonin 1 mg chew Take 1 mg by mouth at bedtime as needed for insomnia. albuterol HFA (PROVENTIL HFA, VENTOLIN HFA) 90 mcg/actuation inhaler Inhale 2 Puffs as instructed every 4 hours as needed. omeprazole (PRILOSEC) 20 mg capsule Take 1 capsule by mouth two times a day. CPAP/BIPAP/OTHER autoCPAP 13-20 cmH2O with 1.5 LPM O2 bleed in DME [employer] ondansetron orally disintegrating (ZOFRAN ODT) 4 mg disintegrating tablet Take 1 tablet by mouth every 8 hours as needed. MEDICAL SUPPLY BEDSIDE COMMODE. dx: right total hip replacement. z96.641 COMPOUNDED PRESCRIPTION Bedside Commode Dx: right total hip replacement Z96.641 PHYSICAL EXAMINATION: Vital Signs: BP 97/61 (BP Site: Left Arm, BP Position: Sitting, BP Cuff Size: Extra Large Adult) Pulse 78 Resp 18 Wt 120.2 kg (265 lb) SpO2 95% BMI 46.94 kg/m? PHYSICAL EXAM: General appearance: pleasant, NAD Mental status: alert and oriented, able to provide own history Constitutional: obese Skin: No visible rashes on exposed skin Neuro: No focal deficits observed, no tremors IMPRESSION: Obstructive sleep apnea (primary encounter diagnosis) Nocturnal hypoxia Difficulty using continuous positive airway pressure (cpap) device Dianne Holly is a 73 year old female with at least moderate MÓNICA, nocturnal hypoxia, difficulty using autoCPAP, COPD, smoker, obesity, HTN, HLD, GERD, CKD, lumbar disc herniation PLAN: - Continue Auto CPAP at 13-20 cmH2O with 1 LPM O2 bleed in. Move machine to the recliner since that is where she has been sleeping lately. Let me know if the congestion persists while using PAP. - Remember to keke (more content not included)... [facility] 04-10-2024 History of Present illness Narrative Chief Complaint Patient presents with: Lesion Removal HPI Dianne Hloly is a 73 year old female who presents here today for excisional lesion. has a non-resolving lesion on the right dorsal/lateral forearm near the elbow. . Patient lost 15 pounds since visit in March. Has been following low fat diet. Patient has noted that since she stopped picking at it the bump has decreased in size. Past medical history, appointments, medications, allergies reviewed. Previous Medical History PAST MEDICAL HISTORY Diagnosis Date Adenoma of left adrenal gland 12/06/2018 Seen [facility] ER CT 11/28/2018 was stable in [...] without perforation or abscess without bleeding 06/03/2016 Elevated blood sugar 08/07/2023 Elevated hemoglobin A1c 08/07/2023 Emphysema of lung (HCC) 06/18/2014 Encounter for Medicare annual wellness exam 11/23/2017 Medicare Part B: 11/29/2016 last done: 08/11/2023 Essential hypertension 11/19/2006 Family history of early CAD 09/08/2022 Brother at age 47 Gastroesophageal reflux disease without esophagitis 11/19/2006 Generalized osteoarthrosis, unspecified site 11/19/2006 Internal hemorrhoids Lumbar disc herniation 02/16/2024 MRI 08/2016: at L5-S1 and L2-L3 Medicare annual wellness visit, initial 11/23/2017 Medicare Part B: 11/29/2016 last done: 11/16/2018 Mixed hyperlipidemia 03/19/2008 Moderate obstructive sleep apnea 08/03/2022 Consult sleep med 07/2022 Osteoarthritis of lumbar spine 01/15/2016 Osteoarthritis of multiple joints 11/19/2006 Overactive bladder 01/16/2019 Primary osteoarthritis of right hip 09/21/2016 Primary ovarian failure 11/23/2017 Recurrent major depressive disorder, in remission (HCC) 11/23/2017 Smoker 05/27/2010 Stage 3a chronic kidney disease (HCC) 08/11/2023 Status post right hip replacement 10/01/2017 Venous [...] SINGLE/MULTIPLE 04/01/2009 EGD TRANSORAL BIOPSY SINGLE/MULTIPLE 06/22/[address] [facility] [address] Marroquin FRACTURE SURGERY JOINT REPLACEMENT [...] nausea/ throat swelling Ibuprofen Vomiting Hematemesis - [facility] 06/21/2012 Nickel Rash Can only wear gold earrings Current Medications Current Outpatient Medications on File Prior to Visit Medication Sig buPROPion SR (WELLBUTRIN SR) 150 mg 12 hr tablet Take 1 tablet by mouth once daily. cyanocobalamin (VITAMIN B-12) 1,000 mcg tab Take 1 tablet by mouth once daily. lisinopril-hydroCHLOROthiazide (ZESTORETIC) 20-12.5 mg per tablet Take 2 tablets by mouth once daily. pravastatin (PRAVACHOL) 40 mg tablet Take 1 tablet by mouth daily at bedtime. sertraline (ZOLOFT) 100 mg tablet Take 1.5 tablets by mouth every evening. verapamil SR (CALAN SR) 180 mg CR tablet Take 1.5 tablets by mouth once daily. magnesium glycinate 100 mg magnesium capsule Take 2 capsules by mouth daily at bedtime. melatonin 1 mg chew Take 1 mg by mouth at bedtime as needed for insomnia. albuterol HFA (PROVENTIL HFA, VENTOLIN HFA) 90 mcg/actuation inhaler Inhale 2 Puffs as instructed every 4 hours as needed. omeprazole (PRILOSEC) 20 mg capsule Take 1 capsule by mouth two times a day. solifenacin (VESICARE) 5 mg tablet Take 1 tablet by mouth once daily. CPAP/BIPAP/OTHER autoCPAP 13-20 cmH2O with 1.5 LPM O2 bleed in DME [employer] ondansetron orally disintegrating (ZOFRAN ODT) 4 mg disintegrating tablet Take 1 tablet by mouth every 8 hours as needed. MEDICAL SUPPLY BEDSIDE COMMODE. dx: right total hip replacement. z96.641 COMPOUNDED PRESCRIPTION Bedside Commode Dx: right total hip replacement Z96.641 No current facility-administered medications on file prior to visit. Social History Social History Tobacco Use Smoking status: Every Day Current packs/day: 0.80 Average packs/day: 0.8 packs/day for 57.1 years (45.7 ttl pk-yrs) Types: Cigarettes Start date: 03/01/1967 Smokeless tobacco: Never Tobacco comments: recently cut back to 03/02 ppd Vaping Use Vaping status: Never Used Substance Use Topics Alcohol use: Yes Comment: rare Drug use: No Review of Symptoms REVIEW OF SYSTEMS See HPI EXAM: BP 132/80 Pulse 63 Resp 18 Wt 120.2 kg (265 lb) SpO2 94% BMI 46.94 kg/m General Appearance: Well appearing, alert, in no acute distress, well-hydrated, well nourished.. Skin: lesion on right forearm is smaller in size and no longer looks irritated. Appears to be a benign dermatofibroma.. Health Maintenance List Advance Directive Discussion due on 03/01/2024 RSV Vaccine(1 - Risk 60-74 years 1-dose series) due on 08/10/2024 Colorectal Cancer Screening due on 07/24/2024 Hemoglobin/Hematocrit due on 08/09/2024 Lung Cancer Screening due on 09/23/2024 LDL Cholesterol due on 02/15/2025 Serum Creatinine due on 02/15/2025 Mammogram Screening due on 02/17/2025 Annual PCP Team Chronic Disease Visit due on 03/17/2025 BP Controlled (<130/80) due on 03/17/2025 Diabetes Screening due on 02/15/2027 Lipid Screening due on 02/15/2029 DTaP,Tdap,Td Vaccine(3 - Td or Tdap) due on 07/04/2032 Bone Density Screening Completed Spirometry Completed Influenza Vaccine Completed Hepatitis C Screening Completed Shingrix Vaccine Completed Pneumococcal Vaccine: 50+ Completed Alpha-1 Antitrypsin Deficiency Screening Discontinued Covid-19 Vaccine Discontinued Data reviewed A/P ASSESSMENT/PLAN: 1. Neoplasm of uncertain behavior of skin of forearm - ICD9: 238.2, ICD10: D48.5 - appears smaller and suspect this is a benign dermatofibroma and will just monitor for now. Dewayne Chung MD documented in this encounter [facility] 04-10-2024 Note HNO ID: [id number] Author: DEWAYNE CHUNG MD Service: ? Author Type: Physician Type: Progress Notes Filed: 04/10/2024 13:09 Note Text: Chief Complaint Patient presents with: Lesion Removal HPI Dianne Holly is a 73 year old female who presents here today for excisional lesion. has a non-resolving lesion on the right dorsal/lateral forearm near the elbow. . Patient lost 15 pounds since visit in March. Has been following low fat diet. Patient has noted that since she stopped picking at it the bump has decreased in size. Past medical history, appointments, medications, allergies reviewed. Previous Medical History PAST MEDICAL HISTORY Diagnosis Date Adenoma of left adrenal gland 12/06/2018 Seen [facility] ER CT 11/28/2018 was stable in size since CT done 11/2015: benign. ADRENAL NODULE 11/17/2007 Anxiety state 11/19/2006 Arthritis Benign neoplasm of colon BPPV (benign paroxysmal positional vertigo) 04/03/2015 Chronic left shoulder pain 09/17/2015 Class 3 severe obesity due to excess calories without serious comorbidity with body mass index (BMI) of 45.0 to 49.9 in adult ([facility]) 06/18/2014 Coronary artery calcification 09/08/[address] 08/2022 DDD (degenerative disc disease), lumbar 01/15/2016 Delayed emergence from general anesthesia Diverticulitis of large intestine without perforation or abscess without bleeding 06/03/2016 Elevated blood sugar 08/07/2023 Elevated hemoglobin A1c 08/07/2023 Emphysema of lung ([facility]) 06/18/2014 Encounter for Medicare annual wellness exam 11/23/2017 Medicare Part B: 11/29/2016 last done: 08/11/2023 Essential hypertension 11/19/2006 Family history of early CAD 09/08/2022 Brother at age 47 Gastroesophageal reflux disease without esophagitis 11/19/2006 Generalized osteoarthrosis, unspecified site 11/19/2006 Internal hemorrhoids Lumbar disc herniation 02/16/2024 MRI 08/2016: at L5-S1 and L2-L3 Medicare annual wellness visit, initial 11/23/2017 Medicare Part B: 11/29/2016 last done: 11/16/2018 Mixed hyperlipidemia 03/19/2008 Moderate obstructive sleep apnea 08/03/2022 Consult sleep med 07/2022 Osteoarthritis of lumbar spine 01/15/2016 Osteoarthritis of multiple joints 11/19/2006 Overactive bladder 01/16/2019 Primary osteoarthritis of right hip 09/21/2016 Primary ovarian failure 11/23/2017 Recurrent major depressive disorder, in remission ([facility]) 11/23/2017 Smoker 05/27/2010 Stage 3a chronic kidney disease ([facility]) 08/11/2023 Status post right hip replacement 10/01/2017 Venous [...] SINGLE/MULTIPLE 04/01/2009 EGD TRANSORAL BIOPSY SINGLE/MULTIPLE 06/22/[address] [facility] [address] Marroquin FRACTURE SURGERY JOINT REPLACEMENT [...] nausea/ throat swelling Ibuprofen Vomiting Hematemesis - [facility] 06/21/2012 Nickel Rash Can only wear gold earrings Current Medications Current Outpatient Medications on File Prior to Visit Medication Sig buPROPion SR (WELLBUTRIN SR) 150 mg 12 hr tablet Take 1 tablet by mouth once daily. cyanocobalamin (VITAMIN B-12) 1,000 mcg tab Take 1 tablet by mouth once daily. lisinopril-hydroCHLOROthiazide (ZESTORETIC) 20-12.5 mg per tablet Take 2 tablets by mouth once daily. pravastatin (PRAVACHOL) 40 mg tablet Take 1 tablet by mouth daily at bedtime. sertraline (ZOLOFT) 100 mg tablet Take 1.5 tablets by mouth every evening. verapamil SR (CALAN SR) 180 mg CR tablet Take 1.5 tablets by mouth once daily. magnesium glycinate 100 mg magnesium capsule Take 2 capsules by mo (more content not included)... [facility] 04-10-2024 History of Present illness Narrative . [facility] Note Patient name: Dianne Holly PCP: Dewayne Chung MD CC: Follow-up COPD HPI: Dianne Holly 73 year old female current 45 pack year smoker with PMH significant for morbid obesity, HTN, HLD, MÓNICA, CKD, GERD recently sent by sleep medicine for evaluation of nocturnal breathing issues interfering with use of her CPAP. At initial visit, instituted treatment for her COPD and GERD: Trelegy Ellipta, restarted PPI, recommended smoking cessation and weight loss. Since starting on the Trelegy, she states she has been doing much better. She has less days when she is so short of breath climbing stairs that she has to stop and rest. She has no chronic cough and no audible wheezing. She has been able to wear her CPAP for 4 hours per night. The proton pump inhibitor has helped her acid reflux symptoms as well. She has not recently been ill with any upper respiratory infection nor required hospitalization for her COPD. She has been trying to lose weight by low-fat diet and has lost 15 pounds since her last visit. She is trying to quit smoking, currently down to 5 cigarettes/day. Testing for allergy with IgE level was normal. PAST MEDICAL HISTORY Diagnosis Date Adenoma of left adrenal gland 12/06/2018 Seen [facility] ER CT 11/28/2018 was stable in [...] without perforation or abscess without bleeding 06/03/2016 Elevated blood sugar 08/07/2023 Elevated hemoglobin A1c 08/07/2023 Emphysema of lung (HCC) 06/18/2014 Encounter for Medicare annual wellness exam 11/23/2017 Medicare Part B: 11/29/2016 last done: 08/11/2023 Essential hypertension 11/19/2006 Family history of early CAD 09/08/2022 Brother at age 47 Gastroesophageal reflux disease without esophagitis 11/19/2006 Generalized osteoarthrosis, unspecified site 11/19/2006 Internal hemorrhoids Lumbar disc herniation 02/16/2024 MRI 08/2016: at L5-S1 and L2-L3 Medicare annual wellness visit, initial 11/23/2017 Medicare Part B: 11/29/2016 last done: 11/16/2018 Mixed hyperlipidemia 03/19/2008 Moderate obstructive sleep apnea 08/03/2022 Consult sleep med 07/2022 Osteoarthritis of lumbar spine 01/15/2016 Osteoarthritis of multiple joints 11/19/2006 Overactive bladder 01/16/2019 Primary osteoarthritis of right hip 09/21/2016 Primary ovarian failure 11/23/2017 Recurrent major depressive disorder, in remission (HCC) 11/23/2017 Smoker 05/27/2010 Stage 3a chronic kidney disease (HCC) 08/11/2023 Status post right hip replacement 10/01/2017 Venous insufficiency (chronic) (peripheral) 10/16/2014 Vertigo 06/14/2017 Vitamin B12 deficiency 05/26/2021 ALLERGIES Allergen Reactions Flagyl [Metronidazo* Itching, Other: See Comments nausea/ throat swelling Ibuprofen Vomiting Hematemesis - [facility] 06/21/2012 Nickel Rash Can only wear gold earrings buPROPion SR (WELLBUTRIN SR) 150 mg 12 hr tablet Take 1 tablet by mouth once daily. omeprazole (PRILOSEC) 20 mg capsule Take 1 capsule by mouth two times a day. tiqnqcxianr-cgiqkztsd-qqlwawik (TRELEGY ELLIPTA) 100-62.5-25 mcg inhalation powder Inhale 1 Puff as instructed once daily. cyanocobalamin (VITAMIN B-12) 1,000 mcg tab Take 1 tablet by mouth once daily. lisinopril-hydroCHLOROthiazide (ZESTORETIC) 20-12.5 mg per tablet Take 2 tablets by mouth once daily. pravastatin (PRAVACHOL) 40 mg tablet Take 1 tablet by mouth daily at bedtime. sertraline (ZOLOFT) 100 mg tablet Take 1.5 tablets by mouth every evening. verapamil SR (CALAN SR) 180 mg CR tablet Take 1.5 tablets by mouth once daily. magnesium glycinate 100 mg magnesium capsule Take 2 capsules by mouth daily at bedtime. melatonin 1 mg chew Take 1 mg by mouth at bedtime as needed for insomnia. albuterol HFA (PROVENTIL HFA, VENTOLIN HFA) 90 mcg/actuation inhaler Inhale 2 Puffs as instructed every 4 hours as needed. solifenacin (VESICARE) 5 mg tablet Take 1 tablet by mouth once daily. CPAP/BIPAP/OTHER autoCPAP 13-20 cmH2O with 1.5 LPM O2 bleed in DME [employer] ondansetron orally disintegrating (ZOFRAN ODT) 4 mg disintegrating tablet Take 1 tablet by mouth every 8 hours as needed. MEDICAL SUPPLY BEDSIDE COMMODE. dx: right total hip replacement. z96.641 COMPOUNDED PRESCRIPTION Bedside Commode Dx: right total hip replacement Z96.641 Social History Tobacco Use Smoking status: Every Day Current packs/day: 0.80 Average packs/day: 0.8 packs/day for 57.1 years (45.7 ttl pk-yrs) Types: Cigarettes Start date: 03/01/1967 Smokeless tobacco: Never Tobacco comments: recently cut back to 03/02 ppd Vaping Use Vaping status: Never Used Substance Use Topics Alcohol use: Yes Comment: rare Drug use: No PMH, Social history, family history and surgical history reviewed and updated in EMR REVIEW OF SYSTEMS: CONSTITUTIONAL: No fevers, chills, nightsweats, unintended weight loss HEENT: Denies current nasal congestion/sinus symptoms, allergy problems. CARDIOVASCULAR: No chest pain, palpitations, edema. PULM: See HPI GI: No GERD symptoms PHYSICAL EXAMINATION: BP 124/80 Pulse 102 Resp 18 Wt 265 lb (120.2kg) SpO2 92% General Appearance: Obese female, NAD. Skin: Skin color, texture, turgor normal, no suspicious rashes or lesions. Head: Normocephalic, no masses, lesions, tenderness or abnormalities. Oropharynx: No oral lesions or thrush. Neck: No masses or adenopathy. Lungs: Not labored, bilateral expiratory wheezes. Heart: Regular rate and rhythm, no murmurs. Extremities: No edema or clubbing. Assessment/Plan: 1. Mild COPD, GOLD stage I -Marked improvement in her respiratory symptoms with institution of Trelegy Ellipta -Refilled prescription. No change in inhaled therapy at this time -Smoking cessation encouraged as well as continued weight loss 2. Cigarette smoker -Complete abstinence recommended -Participating in lung cancer screening 3. Morbid obesity -BMI 46 -Continue weight loss advised 4. GERD -Continue proton pump inhibitor and antireflux measures -Weight loss advised Naomy Parker MD [facility] documented in this encounter [facility] 04-10-2024 Note HNO ID: [id number] Author: NAOMY PARKER MD Service: ? Author Type: Physician Type: Progress Notes Filed: 04/10/2024 12:08 Note Text: . [facility] Note Patient name: Dianne Holly PCP: Dewayne Chung MD CC: Follow-up COPD HPI: Dianne Holly 73 year old female current 45 pack year smoker with PMH significant for morbid obesity, HTN, HLD, MÓNICA, CKD, GERD recently sent by sleep medicine for evaluation of nocturnal breathing issues interfering with use of her CPAP. At initial visit, instituted treatment for her COPD and GERD: Trelegy Ellipta, restarted PPI, recommended smoking cessation and weight loss. Since starting on the Trelegy, she states she has been doing much better. She has less days when she is so short of breath climbing stairs that she has to stop and rest. She has no chronic cough and no audible wheezing. She has been able to wear her CPAP for 4 hours per night. The proton pump inhibitor has helped her acid reflux symptoms as well. She has not recently been ill with any upper respiratory infection nor required hospitalization for her COPD. She has been trying to lose weight by low-fat diet and has lost 15 pounds since her last visit. She is trying to quit smoking, currently down to 5 cigarettes/day. Testing for allergy with IgE level was normal. PAST MEDICAL HISTORY Diagnosis Date Adenoma of left adrenal gland 12/06/2018 Seen [facility] ER CT 11/28/2018 was stable in size since CT done 11/2015: benign. ADRENAL NODULE 11/17/2007 Anxiety state 11/19/2006 Arthritis Benign neoplasm of colon BPPV (benign paroxysmal positional vertigo) 04/03/2015 Chronic left shoulder pain 09/17/2015 Class 3 severe obesity due to excess calories without serious comorbidity with body mass index (BMI) of 45.0 to 49.9 in adult ([facility]) 06/18/2014 Coronary artery calcification 09/08/[address] 08/2022 DDD (degenerative disc disease), lumbar 01/15/2016 Delayed emergence from general anesthesia Diverticulitis of large intestine without perforation or abscess without bleeding 06/03/2016 Elevated blood sugar 08/07/2023 Elevated hemoglobin A1c 08/07/2023 Emphysema of lung ([facility]) 06/18/2014 Encounter for Medicare annual wellness exam 11/23/2017 Medicare Part B: 11/29/2016 last done: 08/11/2023 Essential hypertension 11/19/2006 Family history of early CAD 09/08/2022 Brother at age 47 Gastroesophageal reflux disease without esophagitis 11/19/2006 Generalized osteoarthrosis, unspecified site 11/19/2006 Internal hemorrhoids Lumbar disc herniation 02/16/2024 MRI 08/2016: at L5-S1 and L2-L3 Medicare annual wellness visit, initial 11/23/2017 Medicare Part B: 11/29/2016 last done: 11/16/2018 Mixed hyperlipidemia 03/19/2008 Moderate obstructive sleep apnea 08/03/2022 Consult sleep med 07/2022 Osteoarthritis of lumbar spine 01/15/2016 Osteoarthritis of multiple joints 11/19/2006 Overactive bladder 01/16/2019 Primary osteoarthritis of right hip 09/21/2016 Primary ovarian failure 11/23/2017 Recurrent major depressive disorder, in remission ([facility]) 11/23/2017 Smoker 05/27/2010 Stage 3a chronic kidney disease ([facility]) 08/11/2023 Status post right hip replacement 10/01/2017 Venous insufficiency (chronic) (peripheral) 10/16/2014 Vertigo 06/14/2017 Vitamin B12 deficiency 05/26/2021 ALLERGIES Allergen Reactions Flagyl [Metronidazo* Itching, Other: See Comments nausea/ throat swelling Ibuprofen Vomiting Hematemesis - [facility] 06/21/2012 Nickel Rash Can only wear gold earrings buPROPion SR (WELLBUTRIN SR) 150 mg 12 hr tablet Take 1 tablet by mouth once daily. omeprazole (PRILOSEC) 20 mg capsule Take 1 capsule by mouth two times a day. ostdicwqcnp-riljygbcm-kebyehqf (TRELEGY ELLIPTA) 100-62.5-25 mcg inhalation powder Inhale 1 Puff as instructed once daily. cyanocobalamin (VITAMIN B-12) 1,000 mcg tab Take 1 tablet by mouth once daily. lisinopril-hydroCHLOROthiazide (ZESTORETIC) 20-12.5 mg per tablet Take 2 tablets by mouth once daily. pravastatin (PRAVACHOL) 40 mg tablet Take 1 tablet by mouth daily at bedtime. sertraline (ZOLOFT) 100 mg tablet Take 1.5 tablets by mouth every evening. verapamil SR (CALAN SR) 180 mg CR tablet Take 1.5 tablets by mouth once daily. magnesium glycinate 100 mg magnesium capsule Take 2 capsules by mouth daily at bedtime. melatonin 1 mg chew Take 1 mg by mouth at bedtime as needed for insomnia. albuterol HFA (PROVENTIL HFA, VENTOLIN HFA) 90 mcg/actuation inhaler Inhale 2 Puffs as instructed every 4 hours as needed. solifenacin (VESICARE) 5 mg tablet Take 1 tablet by mouth once daily. CPAP/BIPAP/OTHER autoCPAP 13-20 cmH2O with 1.5 LPM O2 bleed in DME [employer] ondansetron orally disintegrating (ZOFRAN ODT) 4 mg disintegrating tablet Take 1 tablet by mouth every 8 hours as needed. MEDICAL SUPPLY BEDSIDE COMMODE. dx: right total hip replacement. z96.641 COMPOUNDED PRESCRIPTION Bedside Commode Dx: right (more content not included)... [facility] 03-17-2024 Telephone encounter Note Patient rescheduled. Carl Bryant MA [facility] 03-17-2024 Miscellaneous Notes Patient rescheduled. Carl Bryant MA Patient is scheduled for 03/31/2024 for excisional biopsy. PLEASE RESCHEDULE and make this a [address] Chung. Carl Bryant MA documented in this encounter [facility] 03-17-2024 Note HNO ID: [id number] Author: ALLIE LEMUS APRN.STEPHANI Service: ? Author Type: Nurse Practitioner Type: Progress Notes Filed: 03/17/2024 14:00 Note Text: Chief Complaint Patient presents with: Follow Up HPI Dianne Holly is a 73 year old female who presents here today for Above Complaints.. Patient presents for routine follow up. Past medical history, appointments, medications, allergies reviewed. Previous Medical History PAST MEDICAL HISTORY Diagnosis Date Adenoma of left adrenal gland 12/06/2018 Seen [facility] ER CT 11/28/2018 was stable in [...] without perforation or abscess without bleeding 06/03/2016 Elevated blood sugar 08/07/2023 Elevated hemoglobin A1c 08/07/2023 Emphysema of lung (HCC) 06/18/2014 Encounter for Medicare annual wellness exam 11/23/2017 Medicare Part B: 11/29/2016 last done: 08/11/2023 Essential hypertension 11/19/2006 Family history of early CAD 09/08/2022 Brother at age 47 Gastroesophageal reflux disease without esophagitis 11/19/2006 Generalized osteoarthrosis, unspecified site 11/19/2006 Internal hemorrhoids Lumbar disc herniation 02/16/2024 MRI 08/2016: at L5-S1 and L2-L3 Medicare annual wellness visit, initial 11/23/2017 Medicare Part B: 11/29/2016 last done: 11/16/2018 Mixed hyperlipidemia 03/19/2008 Moderate obstructive sleep apnea 08/03/2022 Consult sleep med 07/2022 Osteoarthritis of lumbar spine 01/15/2016 Osteoarthritis of multiple joints 11/19/2006 Overactive bladder 01/16/2019 Primary osteoarthritis of right hip 09/21/2016 Primary ovarian failure 11/23/2017 Recurrent major depressive disorder, in remission (HCC) 11/23/2017 Smoker 05/27/2010 Stage 3a chronic kidney disease (HCC) 08/11/2023 Status post right hip replacement 10/01/2017 Venous [...] SINGLE/MULTIPLE 04/01/2009 EGD TRANSORAL BIOPSY SINGLE/MULTIPLE 06/22/[address] [facility] [address] Marroquin FRACTURE SURGERY JOINT REPLACEMENT [...] nausea/ throat swelling Ibuprofen Vomiting Hematemesis - [facility] 06/21/2012 Nickel Rash Can only wear gold earrings Current Medications Current Outpatient Medications on File Prior to Visit Medication Sig buPROPion SR (WELLBUTRIN SR) 150 mg 12 hr tablet Take 1 tablet by mouth once daily. cyanocobalamin (VITAMIN B-12) 1,000 mcg tab Take 1 tablet by mouth once daily. lisinopril-hydroCHLOROthiazide (ZESTORETIC) 20-12.5 mg per tablet Take 2 tablets by mouth once daily. pravastatin (PRAVACHOL) 40 mg tablet Take 1 tablet by mouth daily at bedtime. sertraline (ZOLOFT) 100 mg tablet Take 1.5 tablets by mouth every evening. verapamil SR (CALAN SR) 180 mg CR tablet Take 1.5 tablets by mouth once daily. magnesium glycinate 100 mg magnesium capsule Take 2 capsules by mouth daily at bedtime. melatonin 1 mg chew Take 1 mg by mouth at bedtime as needed for insomnia. ubglneaxeqb-xqzstyawf-tbhfimav (TRELEGY ELLIPTA) 100-62.5-25 mcg inhalation powder Inhale 1 Puff as (more content not included)... [facility] 03-17-2024 History of Present illness Narrative Chief Complaint Patient presents with: Follow Up HPI Dianne Holly is a 73 year old female who presents here today for Above Complaints.. Patient presents for routine follow up. Past medical history, appointments, medications, allergies reviewed. Previous Medical History PAST MEDICAL HISTORY Diagnosis Date Adenoma of left adrenal gland 12/06/2018 Seen [facility] ER CT 11/28/2018 was stable in [...] without perforation or abscess without bleeding 06/03/2016 Elevated blood sugar 08/07/2023 Elevated hemoglobin A1c 08/07/2023 Emphysema of lung (HCC) 06/18/2014 Encounter for Medicare annual wellness exam 11/23/2017 Medicare Part B: 11/29/2016 last done: 08/11/2023 Essential hypertension 11/19/2006 Family history of early CAD 09/08/2022 Brother at age 47 Gastroesophageal reflux disease without esophagitis 11/19/2006 Generalized osteoarthrosis, unspecified site 11/19/2006 Internal hemorrhoids Lumbar disc herniation 02/16/2024 MRI 08/2016: at L5-S1 and L2-L3 Medicare annual wellness visit, initial 11/23/2017 Medicare Part B: 11/29/2016 last done: 11/16/2018 Mixed hyperlipidemia 03/19/2008 Moderate obstructive sleep apnea 08/03/2022 Consult sleep med 07/2022 Osteoarthritis of lumbar spine 01/15/2016 Osteoarthritis of multiple joints 11/19/2006 Overactive bladder 01/16/2019 Primary osteoarthritis of right hip 09/21/2016 Primary ovarian failure 11/23/2017 Recurrent major depressive disorder, in remission (HCC) 11/23/2017 Smoker 05/27/2010 Stage 3a chronic kidney disease (HCC) 08/11/2023 Status post right hip replacement 10/01/2017 Venous [...] SINGLE/MULTIPLE 04/01/2009 EGD TRANSORAL BIOPSY SINGLE/MULTIPLE 06/22/[address] [facility] [address] Marroquin FRACTURE SURGERY JOINT REPLACEMENT [...] nausea/ throat swelling Ibuprofen Vomiting Hematemesis - [facility] 06/21/2012 Nickel Rash Can only wear gold earrings Current Medications Current Outpatient Medications on File Prior to Visit Medication Sig buPROPion SR (WELLBUTRIN SR) 150 mg 12 hr tablet Take 1 tablet by mouth once daily. cyanocobalamin (VITAMIN B-12) 1,000 mcg tab Take 1 tablet by mouth once daily. lisinopril-hydroCHLOROthiazide (ZESTORETIC) 20-12.5 mg per tablet Take 2 tablets by mouth once daily. pravastatin (PRAVACHOL) 40 mg tablet Take 1 tablet by mouth daily at bedtime. sertraline (ZOLOFT) 100 mg tablet Take 1.5 tablets by mouth every evening. verapamil SR (CALAN SR) 180 mg CR tablet Take 1.5 tablets by mouth once daily. magnesium glycinate 100 mg magnesium capsule Take 2 capsules by mouth daily at bedtime. melatonin 1 mg chew Take 1 mg by mouth at bedtime as needed for insomnia. oxmapyyebie-rpcgbrxps-khhmhiyo (TRELEGY ELLIPTA) 100-62.5-25 mcg inhalation powder Inhale 1 Puff as instructed once daily. albuterol HFA (PROVENTIL HFA, VENTOLIN HFA) 90 mcg/actuation inhaler Inhale 2 Puffs as instructed every 4 hours as needed. omeprazole (PRILOSEC) 20 mg capsule Take 1 capsule by mouth two times a day. solifenacin (VESICARE) 5 mg tablet Take 1 tablet by mouth once daily. CPAP/BIPAP/OTHER autoCPAP 13-20 cmH2O with 1.5 LPM O2 bleed in DME [employer] ondansetron orally disintegrating (ZOFRAN ODT) 4 mg disintegrating tablet Take 1 tablet by mouth every 8 hours as needed. MEDICAL SUPPLY BEDSIDE COMMODE. dx: right total hip replacement. z96.641 COMPOUNDED PRESCRIPTION Bedside Commode Dx: right total hip replacement Z96.641 No current facility-administered medications on file prior to visit. Social History Social History Tobacco Use Smoking status: Every Day Current packs/day: 0.80 Average packs/day: 0.8 packs/day for 57.0 years (45.6 ttl pk-yrs) Types: Cigarettes Start date: 03/01/1967 Smokeless tobacco: Never Tobacco comments: recently cut back to 03/02 ppd Vaping Use Vaping status: Never Used Substance Use Topics Alcohol use: Yes Comment: rare Drug use: No Review of Symptoms REVIEW OF SYSTEMS SEE HPI EXAM: BP 132/73 Pulse 79 Resp 18 Wt 124.3 kg (274 lb) BMI 48.54 kg/m General Appearance: Well appearing, alert, in no acute distress, well-hydrated, well nourished.. Lungs: Lungs clear to auscultation. No wheezing, rhonchi, rales.. Heart: RRR without murmur, gallop, or rubs. No ectopy. Peripheral Pulses: Normal. Health Maintenance List BP Controlled (<130/80) due on 08/13/2021 Advance Directive Discussion due on 03/01/2024 RSV Vaccine(1 - Risk 60-74 years 1-dose series) due on 08/10/2024 Colorectal Cancer Screening due on 07/24/2024 Hemoglobin/Hematocrit due on 08/09/2024 Lung Cancer Screening due on 09/23/2024 LDL Cholesterol due on 02/15/2025 Serum Creatinine due on 02/15/2025 Mammogram Screening due on 02/17/2025 Annual PCP Team Chronic Disease Visit due on 03/09/2025 Diabetes Screening due on 02/15/2027 Lipid Screening due on 02/15/2029 DTaP,Tdap,Td Vaccine(3 - Td or Tdap) due on 07/04/2032 Bone Density Screening Completed Spirometry Completed Influenza Vaccine Completed Hepatitis C Screening Completed Shingrix Vaccine Completed Pneumococcal Vaccine: 50+ Completed Alpha-1 Antitrypsin Deficiency Screening Discontinued Covid-19 Vaccine Discontinued Data reviewed Latest Ref Rng 02/16/2024 Glucose 74 - 99 mg/dL 104 (H) BUN 7 - 21 mg/dL 27 (H) Creatinine 0.58 - 0.96 mg/dL 1.23 (H) Sodium 136 - 144 mmol/L 141 Potassium 3.7 - 5.1 mmol/L 4.4 Chloride 98 - 107 mmol/L 101 CO2 22 - 30 mmol/L 24 Anion Gap 8 - 15 mmol/L 16 (H) Calcium 8.5 - 10.2 mg/dL 10.0 eGFR >=60 mL/min/1.73m 47 (L) Total Cholesterol, Nonfasting <200 mg/dL 173 Triglycerides, Nonfasting <150 mg/dL 149 HDL Cholesterol, Nonfasting >39 mg/dL 44 LDL Cholesterol, Nonfasting <100 mg/dL 99 Non HDL Cholesterol, Nonfasting <130 mg/dL 129 VLDL Cholesterol, Nonfasting <30 mg/dL 30 (H) Total Chol/HDL Ratio, Nonfasting <5.10 mg/dL 3.93 LDL/HDL Ratio, Nonfasting <2.54 mg/dL 2.25 Hemoglobin A1C 4.3 - 5.6 % 5.7 (H) Estimated Average Glucose mg/dL 117 ASSESSMENT/PLAN: 1. Essential hypertension - ICD9: 401.9, ICD10: I10 (primary diagnosis) - Controlled - Continue current medications - Recommend home blood pressure monitoring, to bring results to next visit - Encouraged sodium restriction, DASH or Mediterranean diet - Recommend regular aerobic exercise - Discussed need for and benefit of weight loss. BMI 48.54 kg/(m^2) 2. Elevated hemoglobin A1c - ICD9: 790.29, ICD10: R73.09 -Hgba1c 5.7, stable. 3. Stage 3a chronic kidney disease (HCC) - ICD9: 585.3, ICD10: N18.31 - eGFR: 47 Stable - Counseled on avoiding NSAIDs, adequate hydration 4. Class 3 severe obesity due to excess calories without serious comorbidity with body mass index (BMI) of 45.0 to 49.9 in adult (HCC) - ICD9: 278.01, V85.42, ICD10: E66.813, Z68.42, E66.01 Weight decreasing 5. Gastroesophageal reflux disease without esophagitis - ICD9: 530.81, ICD10: K21.9 - Continue treatment with Prilosec 20 mg QD 6. Recurrent major depressive disorder, in remission (HCC) - ICD9: 296.35, ICD10: F33.40 -Continue sertraline and wellbutrin 7. Mixed hyperlipidemia - ICD9: 272.2, ICD10: E78.2 - Controlled - Continue current medications - Counseled on healthy diet and regular exercise - Discussed need for and benefit of weight loss. BMI 48.54 kg/(m^2) Allie Lemus APRN.HARMONIC ANALYST documented in this encounter [facility] 03-15-2024 Telephone encounter Note Patient is scheduled for 03/31/2024 for excisional biopsy. PLEASE RESCHEDULE and make this a [address] Chung. Carl Bryant MA [facility] 03-13-2024 Telephone encounter Note Pt called in and reports provider had referred her to Dr Velázquez for her spine, but she had lost the phone number for him. I gave her the general number for [facility] [phone] and told her to ask the optical effects camera operator to put her through to Dr Velázquez's office. [facility] 03-13-2024 Miscellaneous Notes Pt called in and reports provider had referred her to Dr Velázquez for her spine, but she had lost the phone number for him. I gave her the general number for [facility] [phone] and told her to ask the optical effects camera operator to put her through to Dr Velázquez's office. documented in this encounter [facility] 03-09-2024 Note HNO ID: [id number] Author: DEWAYNE CHUNG MD Service: ? Author Type: Physician Type: Procedures Filed: 03/10/2024 12:41 Note Text: UNIVERSAL PROTOCOL / SAFETY CHECKLIST Procedure to be Performed: trigger finger injections. Sign In: A Moment of CARE was completed. Personnel directly involved with the procedure wore the appropriate PPE (Personal Protective Equipment). Patient/Surrogate Stated/Verified: PATIENT VERIFIED(optional for EMERGENT procedures): Patient name, Date of , Relevant allergies, and The intended procedure Time Out Communication: Intended patient and procedure match the source documents. Consent documented and matches the intended procedure. Correct side/site marked and visible. Medications required for procedure verified. Sign Out: SIGN OUT (optional for EMERGENT procedures): Post-procedure follow-up management communicated and Plan of Care Visit completed when applicable. 1) right middle finger: Area was cleansed with betadine and alcohol. A 25 gauge 5/8 needle was inserted. Aspiration attempted with no blood return. Medication was then injected without any difficulty. Patient tolerated well Medication: 20 mg kenalog with 0.25 ml 2% lido without epi. 2) right ring finger: Area was cleansed with betadine and alcohol. A 25 gauge 5/8 needle was inserted. Aspiration attempted with no blood return. Medication was then injected without any difficulty. Medication: 20 mg kenalog with 0.25 ml 2% lido without epi. Dewayne Chung MD [facility] 03-09-2024 Procedure note Procedure(s): TENDON SHEATH INJECT. Pre-Procedure Diagnose(s): Trigger middle finger of right hand; Trigger ring finger of right hand Post-Procedure Diagnose(s): Trigger middle finger of right hand; Trigger ring finger of right hand UNIVERSAL PROTOCOL / SAFETY CHECKLIST Procedure to be Performed: trigger finger injections. Sign In: A Moment of CARE was completed. Personnel directly involved with the procedure wore the appropriate PPE (Personal Protective Equipment). Patient/Surrogate Stated/Verified: PATIENT VERIFIED(optional for EMERGENT procedures): Patient name, Date of , Relevant allergies, and The intended procedure Time Out Communication: Intended patient and procedure match the source documents. Consent documented and matches the intended procedure. Correct side/site marked and visible. Medications required for procedure verified. Sign Out: SIGN OUT (optional for EMERGENT procedures): Post-procedure follow-up management communicated and Plan of Care Visit completed when applicable. 1) right middle finger: Area was cleansed with betadine and alcohol. A 25 gauge 5/8 needle was inserted. Aspiration attempted with no blood return. Medication was then injected without any difficulty. Patient tolerated well Medication: 20 mg kenalog with 0.25 ml 2% lido without epi. 2) right ring finger: Area was cleansed with betadine and alcohol. A 25 gauge 5/8 needle was inserted. Aspiration attempted with no blood return. Medication was then injected without any difficulty. Medication: 20 mg kenalog with 0.25 ml 2% lido without epi. Dewayne Chung [facility] 03-09-2024 Procedure note Procedure(s): TENDON SHEATH INJECT. Pre-Procedure Diagnose(s): Trigger middle finger of right hand; Trigger ring finger of right hand Post-Procedure Diagnose(s): Trigger middle finger of right hand; Trigger ring finger of right hand UNIVERSAL PROTOCOL / SAFETY CHECKLIST Procedure to be Performed: trigger finger injections. Sign In: A Moment of CARE was completed. Personnel directly involved with the procedure wore the appropriate PPE (Personal Protective Equipment). Patient/Surrogate Stated/Verified: PATIENT VERIFIED(optional for EMERGENT procedures): Patient name, Date of , Relevant allergies, and The intended procedure Time Out Communication: Intended patient and procedure match the source documents. Consent documented and matches the intended procedure. Correct side/site marked and visible. Medications required for procedure verified. Sign Out: SIGN OUT (optional for EMERGENT procedures): Post-procedure follow-up management communicated and Plan of Care Visit completed when applicable. 1) right middle finger: Area was cleansed with betadine and alcohol. A 25 gauge 5/8 needle was inserted. Aspiration attempted with no blood return. Medication was then injected without any difficulty. Patient tolerated well Medication: 20 mg kenalog with 0.25 ml 2% lido without epi. 2) right ring finger: Area was cleansed with betadine and alcohol. A 25 gauge 5/8 needle was inserted. Aspiration attempted with no blood return. Medication was then injected without any difficulty. Medication: 20 mg kenalog with 0.25 ml 2% lido without epi. Dewayne Chung MD documented in this encounter [facility] 03-09-2024 History of Present illness Narrative Chief Complaint Patient presents with: Trigger Finger HPI Dianne Holly is a 73 year old female who presents here today for Trigger finger. Right hand trigger fingers - ring/middle will lock and the ring finger will hurt trying to get it to unlock. Started a few months ago. Past medical history, appointments, medications, allergies reviewed. Previous Medical History PAST MEDICAL HISTORY Diagnosis Date Adenoma of left adrenal gland 12/06/2018 Seen [facility] ER CT 11/28/2018 was stable in size since CT done 11/2015: benign. ADRENAL NODULE 11/17/2007 Anxiety state 11/19/2006 Arthritis Benign neoplasm of colon BPPV (benign paroxysmal positional vertigo) 04/03/2015 Chronic left shoulder pain 09/17/2015 Class 3 severe obesity due to excess calories without serious comorbidity with body mass index (BMI) of 45.0 to 49.9 in adult ([facility]) 06/18/2014 Coronary artery calcification 09/08/[address] 08/2022 DDD (degenerative disc disease), lumbar 01/15/2016 Delayed emergence from general anesthesia Diverticulitis of large intestine without perforation or abscess without bleeding 06/03/2016 Elevated blood sugar 08/07/2023 Elevated hemoglobin A1c 08/07/2023 Emphysema of lung ([facility]) 06/18/2014 Encounter for Medicare annual wellness exam 11/23/2017 Medicare Part B: 11/29/2016 last done: 08/11/2023 Essential hypertension 11/19/2006 Family history of early CAD 09/08/2022 Brother at age 47 Gastroesophageal reflux disease without esophagitis 11/19/2006 Generalized osteoarthrosis, unspecified site 11/19/2006 Internal hemorrhoids Lumbar disc herniation 02/16/2024 MRI 08/2016: at L5-S1 and L2-L3 Medicare annual wellness visit, initial 11/23/2017 Medicare Part B: 11/29/2016 last done: 11/16/2018 Mixed hyperlipidemia 03/19/2008 Moderate obstructive sleep apnea 08/03/2022 Consult sleep med 07/2022 Osteoarthritis of lumbar spine 01/15/2016 Osteoarthritis of multiple joints 11/19/2006 Overactive bladder 01/16/2019 Primary osteoarthritis of right hip 09/21/2016 Primary ovarian failure 11/23/2017 Recurrent major depressive disorder, in remission ([facility]) 11/23/2017 Smoker 05/27/2010 Stage 3a chronic kidney disease ([facility]) 08/11/2023 Status post right hip replacement 10/01/2017 Venous [...] SINGLE/MULTIPLE 04/01/2009 EGD TRANSORAL BIOPSY SINGLE/MULTIPLE 06/22/[address] [facility] [address] Marroquin FRACTURE SURGERY JOINT REPLACEMENT [...] nausea/ throat swelling Ibuprofen Vomiting Hematemesis - [facility] 06/21/2012 Nickel Rash Can only wear gold earrings Current Medications Current Outpatient Medications on File Prior to Visit Medication Sig buPROPion SR (WELLBUTRIN SR) 150 mg 12 hr tablet Take 1 tablet by mouth once daily. cyanocobalamin (VITAMIN B-12) 1,000 mcg tab Take 1 tablet by mouth once daily. lisinopril-hydroCHLOROthiazide (ZESTORETIC) 20-12.5 mg per tablet Take 2 tablets by mouth once daily. pravastatin (PRAVACHOL) 40 mg tablet Take 1 tablet by mouth daily at bedtime. sertraline (ZOLOFT) 100 mg tablet Take 1.5 tablets by mouth every evening. verapamil SR (CALAN SR) 180 mg CR tablet Take 1.5 tablets by mouth once daily. magnesium glycinate 100 mg magnesium capsule Take 2 capsules by mouth daily at bedtime. melatonin 1 mg chew Take 1 mg by mouth at bedtime as needed for insomnia. qomqszbiiui-oqeermpuf-pirppnfd (TRELEGY ELLIPTA) 100-62.5-25 mcg inhalation powder Inhale 1 Puff as instructed once daily. albuterol HFA (PROVENTIL HFA, VENTOLIN HFA) 90 mcg/actuation inhaler Inhale 2 Puffs as instructed every 4 hours as needed. omeprazole (PRILOSEC) 20 mg capsule Take 1 capsule by mouth two times a day. solifenacin (VESICARE) 5 mg tablet Take 1 tablet by mouth once daily. CPAP/BIPAP/OTHER autoCPAP 13-20 cmH2O with 1.5 LPM O2 bleed in DME [employer] triamcinolone acetonide (KENALOG) 0.1 % cream Apply 1 application to affected area three times a day. Apply sparingly to area for rash/itching. ondansetron orally disintegrating (ZOFRAN ODT) 4 mg disintegrating tablet Take 1 tablet by mouth every 8 hours as needed. MEDICAL SUPPLY BEDSIDE COMMODE. dx: right total hip replacement. z96.641 COMPOUNDED PRESCRIPTION Bedside Commode Dx: right total hip replacement Z96.641 No current facility-administered medications on file prior to visit. Social History Social History Tobacco Use Smoking status: Every Day Current packs/day: 0.80 Average packs/day: 0.8 packs/day for 57.0 years (45.6 ttl pk-yrs) Types: Cigarettes Start date: 03/01/1967 Smokeless tobacco: Never Tobacco comments: recently cut back to 03/02 ppd Vaping Use Vaping status: Never Used Substance Use Topics Alcohol use: Yes Comment: rare Drug use: No Review of Symptoms REVIEW OF SYSTEMS See HPI EXAM: BP 142/76 Pulse 78 Ht 160 cm (5' 3) Wt 127 kg (280 lb) SpO2 94% BMI 49.60 kg/m General Appearance: Well appearing, alert, in no acute distress, well-hydrated, well nourished.. Musculoskeletal: Has triggering on the middle and ring fingers on the right. . . Health Maintenance List BP Controlled (<130/80) due on 08/13/2021 Advance Directive Discussion due on 03/01/2024 RSV Vaccine(1 - Risk 60-74 years 1-dose series) due on 08/10/2024 Colorectal Cancer Screening due on 07/24/2024 Hemoglobin/Hematocrit due on 08/09/2024 Lung Cancer Screening due on 09/23/2024 LDL Cholesterol due on 02/15/2025 Annual PCP Team Chronic Disease Visit due on 02/15/2025 Serum Creatinine due on 02/15/2025 Mammogram Screening due on 02/17/2025 Diabetes Screening due on 02/15/2027 Lipid Screening due on 02/15/2029 DTaP,Tdap,Td Vaccine(3 - Td or Tdap) due on 07/04/2032 Bone Density Screening Completed Spirometry Completed Influenza Vaccine Completed Hepatitis C Screening Completed Shingrix Vaccine Completed Pneumococcal Vaccine: 50+ Completed Alpha-1 Antitrypsin Deficiency Screening Discontinued Covid-19 Vaccine Discontinued Data reviewed A/P ASSESSMENT/PLAN: 1. Trigger middle finger of right hand - ICD9: 727.03, ICD10: M65.331 (primary diagnosis) - discussed injection and patient inh agreement 2. Trigger ring finger of right hand - ICD9: 727.03, ICD10: M65.341 - as above See procedure note. Dewayne Chung MD documented in this encounter [facility] 03-09-2024 Note HNO ID: [id number] Author: DEWAYNE CHUNG MD Service: ? Author Type: Physician Type: Progress Notes Filed: 03/10/2024 12:41 Note Text: Chief Complaint Patient presents with: Trigger Finger HPI Dianne Holly is a 73 year old female who presents here today for Trigger finger. Right hand trigger fingers - ring/middle will lock and the ring finger will hurt trying to get it to unlock. Started a few months ago. Past medical history, appointments, medications, allergies reviewed. Previous Medical History PAST MEDICAL HISTORY Diagnosis Date Adenoma of left adrenal gland 12/06/2018 Seen [facility] ER CT 11/28/2018 was stable in [...] without perforation or abscess without bleeding 06/03/2016 Elevated blood sugar 08/07/2023 Elevated hemoglobin A1c 08/07/2023 Emphysema of lung (HCC) 06/18/2014 Encounter for Medicare annual wellness exam 11/23/2017 Medicare Part B: 11/29/2016 last done: 08/11/2023 Essential hypertension 11/19/2006 Family history of early CAD 09/08/2022 Brother at age 47 Gastroesophageal reflux disease without esophagitis 11/19/2006 Generalized osteoarthrosis, unspecified site 11/19/2006 Internal hemorrhoids Lumbar disc herniation 02/16/2024 MRI 08/2016: at L5-S1 and L2-L3 Medicare annual wellness visit, initial 11/23/2017 Medicare Part B: 11/29/2016 last done: 11/16/2018 Mixed hyperlipidemia 03/19/2008 Moderate obstructive sleep apnea 08/03/2022 Consult sleep med 07/2022 Osteoarthritis of lumbar spine 01/15/2016 Osteoarthritis of multiple joints 11/19/2006 Overactive bladder 01/16/2019 Primary osteoarthritis of right hip 09/21/2016 Primary ovarian failure 11/23/2017 Recurrent major depressive disorder, in remission (HCC) 11/23/2017 Smoker 05/27/2010 Stage 3a chronic kidney disease (HCC) 08/11/2023 Status post right hip replacement 10/01/2017 Venous [...] SINGLE/MULTIPLE 04/01/2009 EGD TRANSORAL BIOPSY SINGLE/MULTIPLE 06/22/[address] [facility] [address] Marroquin FRACTURE SURGERY JOINT REPLACEMENT [...] nausea/ throat swelling Ibuprofen Vomiting Hematemesis - [facility] [facility] 06/[facility]2012 Nickel Rash Can only wear gold earrings Current Medications Current Outpatient Medications on File Prior to Visit Medication Sig buPROPion SR (WELLBUTRIN SR) 150 mg 12 hr tablet Take 1 tablet by mouth once daily. cyanocobalamin (VITAMIN B-12) 1,000 mcg tab Take 1 tablet by mouth once daily. lisinopril-hydroCHLOROthiazide (ZESTORETIC) 20-12.5 mg per tablet Take 2 tablets by mouth once daily. pravastatin (PRAVACHOL) 40 mg tablet Take 1 tablet by mouth daily at bedtime. sertraline (ZOLOFT) 100 mg tablet Take 1.5 tablets by mouth every evening. verapamil SR (CALAN SR) 180 mg CR tablet Take 1.5 tablets by mouth once daily. magnesium glycinate 100 mg magnesium capsule Take 2 capsules by mouth daily at bedtime. melatonin 1 mg chew Take 1 mg by mouth at bedtime as needed for insomnia. fluticasone-umecli (more content not included)... [facility] 02-21-2024 Telephone encounter Note Patient notified of results and provider's instructions. Patient verbalizes understanding. Gloria Caldwell RN [facility] 02-21-2024 Miscellaneous Notes Patient notified of results and provider's instructions. Patient verbalizes understanding. Gloria Caldwell RN Left message for patient to return call to office Lucina Broderick MA Please let patient know her mammogram is negative. Patient should continue with annual screenings. documented in this encounter [facility] 02-21-2024 Telephone encounter Note Left message for patient to return call to office Lucina Broderick MA [facility] 02-21-2024 Telephone encounter Note Please let patient know her mammogram is negative. Patient should continue with annual screenings. [facility] 02-18-2024 History of Present illness Narrative Radiology Service Progress Note PATIENT NAME: Dianne Holly DATE OF SERVICE: February 18, 2024 TIME: 1:13 PM PATIENT IDENTITY VERIFICATION COMPLETED USING TWO (2) IDENTIFIERS: Name and Date of confirmed by patient verbally. FALL SCREENING: Has the patient had 2 falls in the last year or 1 fall with injury or currently using an Ambulatory Assistive Device (Walker, Cane, Wheelchair, Crutches, etc.)? No PATIENT GENDER DATA: Female. status: : No status: NO. PATIENT RELEVANT IMPLANT DATA REVIEWED: Not Applicable PATIENT PRESENTS WITH AN IMPLANTABLE OR ATTACHED HEEL LINING PASTER: No RADIOLOGY DEPARTMENT: Mammography PERIPHERAL IV DATA: Not applicable SIGNED BY: Marj Colon February 18, 2024 1:13 PM documented in this encounter [facility] 02-18-2024 Note HNO ID: [id number] Author: VIDHI ZULUAGA Mammo Tech Service: ? Author Type: Special Diet Cook Type: Progress Notes Filed: 02/18/2024 13:13 Note Text: Radiology Service Progress Note PATIENT NAME: Dianne Holly DATE OF SERVICE: February 18, 2024 TIME: 1:13 PM PATIENT IDENTITY VERIFICATION COMPLETED USING TWO (2) IDENTIFIERS: Name and Date of confirmed by patient verbally. FALL SCREENING: Has the patient had 2 falls in the last year or 1 fall with injury or currently using an Ambulatory Assistive Device (Walker, Cane, Wheelchair, Crutches, etc.)? No PATIENT GENDER DATA: Female. status: : No status: NO. PATIENT RELEVANT IMPLANT DATA REVIEWED: Not Applicable PATIENT PRESENTS WITH AN IMPLANTABLE OR ATTACHED HEEL LINING PASTER: No RADIOLOGY DEPARTMENT: Mammography PERIPHERAL IV DATA: Not applicable SIGNED BY: Vidhi Zuluaga Caterva February 18, 2024 1:13 PM [facility] 02-16-2024 History of Present illness Narrative Images from the original note were not included. Chief Complaint Patient presents with: F/U 6 months HPI Dianne Holly is a 73 year old female who presents here today for 6 month follow up. Patient with hx of HTN, hyperlipidemia, COPD, Depression, GERD, obesity, smoker, BPPV, OA, DDD, OAB, b12 def, and those as below. Patient indicated that she has raised spot on her right lower arm bout a month ago: not painful or itchy. Thinks she may have one on the side of her left foot, not tender. Patient also having issues with lower back/right hip sciatica. Sitting is ok and in fact has relief with walking has some discomfort in her back. If standing still she will have pain in the lower back that radiates into the right lower leg. No numbness or weakness. No saddle anesthesia. No difficulty staring urination and no loss of fecal control. Had a MRI and 2016 and was told by her pain management provider Dr. Golden at the time she has a bad lower back and will need surgery at some point. Right hand trigger fingers - ring/middle will lock and the rig finger will hurt trying to get it to unlock. Started a few months ago. Patient Neur/sleep for MÓNICA last visit 08/2023 Patient sees Pulmonary last visit 12/16/2023 Past medical history, appointments, medications, allergies reviewed. Previous Medical History PAST MEDICAL HISTORY Diagnosis Date Adenoma of left adrenal gland 12/06/2018 Seen [facility] ER CT 11/28/2018 was stable in size since CT done 11/2015: benign. ADRENAL NODULE 11/17/2007 Anxiety state 11/19/2006 Arthritis Benign neoplasm of colon BPPV (benign paroxysmal positional vertigo) 04/03/2015 Chronic left shoulder pain 09/17/2015 Class 3 severe obesity due to excess calories without serious comorbidity with body mass index (BMI) of 45.0 to 49.9 in adult ([facility]) 06/18/2014 Coronary artery calcification 09/08/[address] 08/2022 DDD (degenerative disc disease), lumbar 01/15/2016 Delayed emergence from general anesthesia Diverticulitis of large intestine without perforation or abscess without bleeding 06/03/2016 Elevated blood sugar 08/07/2023 Elevated hemoglobin A1c 08/07/2023 Emphysema of lung ([facility]) 06/18/2014 Encounter for Medicare annual wellness exam 11/23/2017 Medicare Part B: 11/29/2016 last done: 08/11/2023 Essential hypertension 11/19/2006 Family history of early [...] 11/23/2017 Recurrent major depressive disorder, in remission ([facility]) 11/23/2017 Smoker 05/27/2010 Stage 3a chronic kidney disease ([facility]) 08/11/2023 Status post right hip replacement 10/01/2017 Venous [...] SINGLE/MULTIPLE 04/01/2009 EGD TRANSORAL BIOPSY SINGLE/MULTIPLE 06/22/[address] [facility] [address] Marroquin FRACTURE SURGERY JOINT REPLACEMENT [...] nausea/ throat swelling Ibuprofen Vomiting Hematemesis - [facility] 06/21/2012 Nickel Rash Can only wear gold earrings Current Medications Current Outpatient Medications on File Prior to Visit Medication Sig magnesium glycinate 100 mg magnesium capsule Take 2 capsules by mouth daily at bedtime. melatonin 1 mg chew Take 1 mg by mouth at bedtime as needed for insomnia. cujnugpptfs-ikdodjklx-unnazxsq (TRELEGY ELLIPTA) 100-62.5-25 mcg inhalation powder Inhale 1 Puff as instructed once daily. nicotine (NICODERM CQ) 14 mg/24 hr Apply 1 Patch as directed every 24 hours. For 3 weeks then decrease to the 7 mg patch nicotine (NICODERM) 7 mg/24 hr Apply 1 Patch as directed every 24 hours. Start after use of 14 mg patches albuterol HFA (PROVENTIL HFA, VENTOLIN HFA) 90 mcg/actuation inhaler Inhale 2 Puffs as instructed every 4 hours as needed. omeprazole (PRILOSEC) 20 mg capsule Take 1 capsule by mouth two times a day. solifenacin (VESICARE) 5 mg tablet Take 1 tablet by mouth once daily. CPAP/BIPAP/OTHER autoCPAP 13-20 cmH2O with 1.5 LPM O2 bleed in DME [employer] verapamil SR (CALAN SR) 180 mg CR tablet Take 1.5 tablets by mouth once daily. buPROPion SR (WELLBUTRIN SR) 150 mg 12 hr tablet Take 1 tablet by mouth once daily. cyanocobalamin (VITAMIN B-12) 1,000 mcg tab Take 1 tablet by mouth once daily. lisinopril-hydroCHLOROthiazide (ZESTORETIC) 20-12.5 mg per tablet Take 2 tablets by mouth once daily. pravastatin (PRAVACHOL) 40 mg tablet Take 1 tablet by mouth daily at bedtime. sertraline (ZOLOFT) 100 mg tablet Take 1.5 tablets by mouth every evening. triamcinolone acetonide (KENALOG) 0.1 % cream Apply 1 application to affected area three times a day. Apply sparingly to area for rash/itching. ondansetron orally disintegrating (ZOFRAN ODT) 4 mg disintegrating tablet Take 1 tablet by mouth every 8 hours as needed. MEDICAL SUPPLY BEDSIDE COMMODE. dx: right total hip replacement. z96.641 COMPOUNDED PRESCRIPTION Bedside Commode Dx: right total hip replacement Z96.641 No current facility-administered medications on file prior to visit. Social History Social History Tobacco Use Smoking status: Every Day Current packs/day: 0.80 Average packs/day: 0.8 packs/day for 57.0 years (45.6 ttl pk-yrs) Types: Cigarettes Start date: 03/01/1967 Smokeless tobacco: Never Tobacco comments: recently cut back to 03/02 ppd Vaping Use Vaping status: Never Used Substance Use Topics Alcohol use: Yes Comment: rare Drug use: No Review of Symptoms REVIEW OF SYSTEMS See HPI EXAM: BP 132/80 Pulse 70 Resp 18 Wt 123.8 kg (273 lb) BMI 48.36 kg/m General Appearance: Well appearing, alert, in no acute distress, well-hydrated, well nourished.. Skin: has a non-resolving lesion on the right dorsal/lateral forearm near the elbow. . Back:no pain to palpation of vertebrae, good flexion and reduced discomfort. Extension is ok but has some discomfort on the right. Hip bend to the left produced mild discomfort. Other motions were ok. No muscle tenderness, reflexes are 2+ and symmetric at the knees, motor and sensory are normal, negative SLR test, Musculoskeletal: Has triggering on the middle and ring fingers on the right. . Neurologic: Gait normal. Reflexes normal and symmetric. Sensation to light touch is symmetrical and intact.. Left lateal foot has a small benign lesion, suspected dermatofibroma. Health Maintenance List Mammogram Screening due on 02/11/2022 Influenza Vaccine(1) due on 10/31/2023 RSV Vaccine(1 - Risk 60-74 years 1-dose series) due on 08/10/2024 Colorectal Cancer Screening due on 07/24/2024 LDL Cholesterol due on 08/09/2024 Serum Creatinine due on 08/09/2024 Hemoglobin/Hematocrit due on 08/09/2024 Lung Cancer Screening due on 09/23/2024 Annual PCP Team Chronic Disease Visit due on 01/25/2025 BP Controlled (<130/80) due on 01/25/2025 Diabetes Screening due on 08/09/2026 Lipid Screening due on 08/09/2028 DTaP,Tdap,Td Vaccine(3 - Td or Tdap) due on 07/04/2032 Bone Density Screening Completed Spirometry Completed Advance Directive Discussion Completed Hepatitis C Screening Completed Shingrix Vaccine Completed Pneumococcal Vaccine: 50+ Completed Alpha-1 Antitrypsin Deficiency Screening Discontinued Covid-19 Vaccine Discontinued Data reviewed MRI Lumbar 09/16/2016 A/P ASSESSMENT/PLAN: 1. Lumbar disc herniation - ICD9: 722.10, ICD10: M51.26 (primary diagnosis) Sciatica - consult to neurosurgery: Dr. Velázquez 2. Degeneration of intervertebral disc of lumbar region with discogenic back pain and lower extremity pain - ICD9: 722.52, ICD10: M51.362 - consult to neurosurgery: Dr. Velázquez 3. Acute right-sided low back pain with right-sided sciatica - ICD9: 724.2, 724.3, ICD10: M54.41 - consult to neurosurgery: Dr. Velázquez 4. Trigger middle finger of right hand - ICD9: 727.03, ICD10: M65.331 - f/u in few weeks for injection 5. Trigger ring finger of right hand - ICD9: 727.03, ICD10: M65.341 - f/u for injection. 6. Neoplasm of uncertain behavior of skin of forearm - ICD9: 238.2, ICD10: D48.5 - follow up for excisional biopsy 7. Essential hypertension - ICD9: 401.9, ICD10: I10 - Controlled - Continue current medications - Recommend home blood pressure monitoring, to bring results to next visit - Encouraged sodium restriction, DASH or Mediterranean diet - Recommend regular aerobic exercise - LISINOPRIL 20 MG-HYDROCHLOROTHIAZIDE 12.5 MG TABLET 8. Anxiety state - ICD9: 300.00, ICD10: F41.1 Cont - BUPROPION HCL SR 150 MG TABLET,12 HR SUSTAINED-RELEASE - SERTRALINE 100 MG TABLET 9. Encounter for immunization - ICD9: V03.89, ICD10: Z23 - INFLUENZA VACCINE, PRSV FREE, AGE 65+ YR, HIGH DOSE, TRIVALENT (FLUZONE HIGH-DOSE): given Requested Prescriptions Signed Prescriptions Disp Refills buPROPion SR (WELLBUTRIN SR) 150 mg 12 hr tablet 90 tablet 3 Sig: Take 1 tablet by mouth once daily. cyanocobalamin (VITAMIN B-12) 1,000 mcg tab 90 tablet 3 Sig: Take 1 tablet by mouth once daily. lisinopril-hydroCHLOROthiazide (ZESTORETIC) 20-12.5 mg per tablet 180 tablet 3 Sig: Take 2 tablets by mouth once daily. pravastatin (PRAVACHOL) 40 mg tablet 90 tablet 3 Sig: Take 1 tablet by mouth daily at bedtime. sertraline (ZOLOFT) 100 mg tablet 135 tablet 3 Sig: Take 1.5 tablets by mouth every evening. verapamil SR (CALAN SR) 180 mg CR tablet 135 tablet 3 Sig: Take 1.5 tablets by mouth once daily. F/u next week or two her her routine appt. F/u in a few weeks for trigger injection. F/u in a few weeks for excisional biopsy. I spent a total of 30 minutes on the date of the service which included preparing to see the patient, [id number] patient care, completing clinical documentation, performing a medically appropriate examination, counseling and educating the patient/family/caregiver and ordering medications, tests, or procedures. Dewayne Chung MD documented in this encounter [facility] 02-16-2024 Note HNO ID: [id number] Author: DEWAYNE CHUNG MD Service: ? Author Type: Physician Type: Progress Notes Filed: 02/16/2024 15:32 Note Text: Chief Complaint Patient presents with: F/U 6 months HPI Dianne Holly is a 73 year old female who presents here today for 6 month follow up. Patient with hx of HTN, hyperlipidemia, COPD, Depression, GERD, obesity, smoker, BPPV, OA, DDD, OAB, b12 def, and those as below. Patient indicated that she has raised spot on her right lower arm bout a month ago: not painful or itchy. Thinks she may have one on the side of her left foot, not tender. Patient also having issues with lower back/right hip sciatica. Sitting is ok and in fact has relief with walking has some discomfort in her back. If standing still she will have pain in the lower back that radiates into the right lower leg. No numbness or weakness. No saddle anesthesia. No difficulty staring urination and no loss of fecal control. Had a MRI and 2016 and was told by her pain management provider Dr. Golden at the time she has a bad lower back and will need surgery at some point. Right hand trigger fingers - ring/middle will lock and the rig finger will hurt trying to get it to unlock. Started a few months ago. Patient Neur/sleep for MÓNICA last visit 08/2023 Patient sees Pulmonary last visit 12/16/2023 Past medical history, appointments, medications, allergies reviewed. Previous Medical History PAST MEDICAL HISTORY Diagnosis Date Adenoma of left adrenal gland 12/06/2018 Seen [facility] ER CT 11/28/2018 was stable in [...] without perforation or abscess without bleeding 06/03/2016 Elevated blood sugar 08/07/2023 Elevated hemoglobin A1c 08/07/2023 Emphysema of lung ([facility]) 06/18/2014 Encounter for Medicare annual wellness exam 11/23/2017 Medicare Part B: 11/29/2016 last done: 08/11/2023 Essential hypertension 11/19/2006 Family history of early [...] disorder, in remission ([facility]) 11/23/2017 Smoker 05/27/2010 Stage 3a chronic kidney disease ([facility]CC) 08/11/2023 Status post right hip replacement 10/01/2017 Venous [...] SINGLE/MULTIPLE 04/01/2009 EGD TRANSORAL BIOPSY SINGLE/MULTIPLE 06/22/[address] [facility] [address] Marroquin FRACTURE SURGERY JOINT REPLACEMENT [...] Comments nausea/ throat swelling Ibuprofen Vomiting Hematemesis (more content not included)... [facility] 01-26-2024 Note HNO ID: [id number] Author: ALLIE LEMUS APRN.HARMONIC ANALYST Service: ? Author Type: Nurse Practitioner Type: Progress Notes Filed: 01/26/2024 14:06 Note Text: Chief Complaint Patient presents with: Sleep Problem HPI Dianne Holly is a 73 year old female who presents here today for Above Complaints.. Patient presents for sleep issues. Has sleep apnea and is working with neurology/pulmonology as she can not tolerate CPAP. Reports she wakes up every hour and has daytime fatigue and sleepiness. Also reports a flare of her sciatica to the right side and low back spasms/pain. Also reports head cold that started yesterday. Past medical history, appointments, medications, allergies reviewed. Previous Medical History PAST MEDICAL HISTORY Diagnosis Date Adenoma of left adrenal gland 12/06/2018 Seen [facility] ER CT 11/28/2018 was stable in [...] without perforation or abscess without bleeding 06/03/2016 Elevated blood sugar 08/07/2023 Elevated hemoglobin A1c 08/07/2023 Emphysema of lung (HCC) 06/18/2014 Encounter for Medicare annual wellness exam 11/23/2017 Medicare Part B: 11/29/2016 last done: 08/11/2023 Essential hypertension 11/19/2006 Family history of early [...] disorder, in remission (HCC) 11/23/2017 Smoker 05/27/2010 Stage 3a chronic kidney disease (HCC) 08/11/2023 Status post right hip replacement 10/01/2017 Venous [...] SINGLE/MULTIPLE 04/01/2009 EGD TRANSORAL BIOPSY SINGLE/MULTIPLE 06/22/[address] [facility] [address] Marroquin FRACTURE SURGERY JOINT REPLACEMENT [...] nausea/ throat swelling Ibuprofen Vomiting Hematemesis - [facility] 06/21/2012 Nickel Rash Can only wear gold earrings Current Medications Current Outpatient Medications on File Prior to Visit Medication Sig fgizmvmysks-qltmxrztx-dthtznbf (TRELEGY ELLIPTA) 100-62.5-25 mcg inhalation powder Inhale 1 Puff as instructed once daily. nicotine (NICODERM CQ) 14 mg/24 hr Apply 1 Patch as directed every 24 hours. For 3 weeks then decrease to the 7 mg patch nicotine (NICODERM) 7 mg/24 hr Apply 1 Patch as directed every 24 hours. Start after use of 14 mg patches albuterol HFA (PROVENTIL HFA, VENTOLIN HFA) 90 mcg/actuation inhaler Inhale 2 Puffs as instructed every 4 hours as needed. omeprazole (PRILOSEC) 20 mg capsule Take 1 capsule by mouth two hiral (more content not included)... [facility] 01-26-2024 History of Present illness Narrative Chief Complaint Patient presents with: Sleep Problem HPI Dianne Holly is a 73 year old female who presents here today for Above Complaints.. Patient presents for sleep issues. Has sleep apnea and is working with neurology/pulmonology as she can not tolerate CPAP. Reports she wakes up every hour and has daytime fatigue and sleepiness. Also reports a flare of her sciatica to the right side and low back spasms/pain. Also reports head cold that started yesterday. Past medical history, appointments, medications, allergies reviewed. Previous Medical History PAST MEDICAL HISTORY Diagnosis Date Adenoma of left adrenal gland 12/06/2018 Seen [facility] ER CT 11/28/2018 was stable in [...] without perforation or abscess without bleeding 06/03/2016 Elevated blood sugar 08/07/2023 Elevated hemoglobin A1c 08/07/2023 Emphysema of lung (HCC) 06/18/2014 Encounter for Medicare annual wellness exam 11/23/2017 Medicare Part B: 11/29/2016 last done: 08/11/2023 Essential hypertension 11/19/2006 Family history of early [...] disorder, in remission (HCC) 11/23/2017 Smoker 05/27/2010 Stage 3a chronic kidney disease (HCC) 08/11/2023 Status post right hip replacement 10/01/2017 Venous [...] SINGLE/MULTIPLE 04/01/2009 EGD TRANSORAL BIOPSY SINGLE/MULTIPLE 06/22/[address] [facility] [address] Marroquin FRACTURE SURGERY JOINT REPLACEMENT [...] nausea/ throat swelling Ibuprofen Vomiting Hematemesis - [facility] 06/21/2012 Nickel Rash Can only wear gold earrings Current Medications Current Outpatient Medications on File Prior to Visit Medication Sig eqcnjfskzgh-gufngbmid-vbaqxqwr (TRELEGY ELLIPTA) 100-62.5-25 mcg inhalation powder Inhale 1 Puff as instructed once daily. nicotine (NICODERM CQ) 14 mg/24 hr Apply 1 Patch as directed every 24 hours. For 3 weeks then decrease to the 7 mg patch nicotine (NICODERM) 7 mg/24 hr Apply 1 Patch as directed every 24 hours. Start after use of 14 mg patches albuterol HFA (PROVENTIL HFA, VENTOLIN HFA) 90 mcg/actuation inhaler Inhale 2 Puffs as instructed every 4 hours as needed. omeprazole (PRILOSEC) 20 mg capsule Take 1 capsule by mouth two times a day. solifenacin (VESICARE) 5 mg tablet Take 1 tablet by mouth once daily. CPAP/BIPAP/OTHER autoCPAP 13-20 cmH2O with 1.5 LPM O2 bleed in DME [employer] verapamil SR (CALAN SR) 180 mg CR tablet Take 1.5 tablets by mouth once daily. buPROPion SR (WELLBUTRIN SR) 150 mg 12 hr tablet Take 1 tablet by mouth once daily. cyanocobalamin (VITAMIN B-12) 1,000 mcg tab Take 1 tablet by mouth once daily. lisinopril-hydroCHLOROthiazide (ZESTORETIC) 20-12.5 mg per tablet Take 2 tablets by mouth once daily. pravastatin (PRAVACHOL) 40 mg tablet Take 1 tablet by mouth daily at bedtime. sertraline (ZOLOFT) 100 mg tablet Take 1.5 tablets by mouth every evening. triamcinolone acetonide (KENALOG) 0.1 % cream Apply 1 application to affected area three times a day. Apply sparingly to area for rash/itching. ondansetron orally disintegrating (ZOFRAN ODT) 4 mg disintegrating tablet Take 1 tablet by mouth every 8 hours as needed. MEDICAL SUPPLY BEDSIDE COMMODE. dx: right total hip replacement. z96.641 COMPOUNDED PRESCRIPTION Bedside Commode Dx: right total hip replacement Z96.641 No current facility-administered medications on file prior to visit. Social History Social History Tobacco Use Smoking status: Every Day Current packs/day: 0.80 Average packs/day: 0.8 packs/day for 56.9 years (45.5 ttl pk-yrs) Types: Cigarettes Start date: 03/01/1967 Smokeless tobacco: Never Tobacco comments: recently cut back to 1/2 ppd Vaping Use Vaping status: Never Used Substance Use Topics Alcohol use: Yes Comment: rare Drug use: No Review of Symptoms REVIEW OF SYSTEMS SEE HPI EXAM: BP 111/75 Pulse 95 Wt 125.6 kg (277 lb) BMI 49.07 kg/m General Appearance: Well appearing, alert, in no acute distress, well-hydrated, well nourished.. Back:no pain to palpation of vertebrae, reflexes are 2+ and symmetric, motor and sensory appear to be normal, Limited ROM with flexion and extension, lower back muscles tender with palpation. Lungs: Lungs clear to auscultation. No wheezing, rhonchi, rales. Cough. Heart: RRR without murmur, gallop, or rubs. No ectopy. Health Maintenance List Mammogram Screening due on 02/11/2022 Influenza Vaccine(1) due on 10/31/2023 RSV Vaccine(1 - Risk 60-74 years 1-dose series) due on 08/10/2024 Colorectal Cancer Screening due on 07/24/2024 LDL Cholesterol due on 08/09/2024 Serum Creatinine due on 08/09/2024 Hemoglobin/Hematocrit due on 08/09/2024 Annual PCP Team Chronic Disease Visit due on 08/10/2024 Lung Cancer Screening due on 09/23/2024 BP Controlled (<130/80) due on 12/15/2024 Diabetes Screening due on 08/09/2026 Lipid Screening due on 08/09/2028 DTaP,Tdap,Td Vaccine(3 - Td or Tdap) due on 07/04/2032 Bone Density Screening Completed Spirometry Completed Advance Directive Discussion Completed Hepatitis C Screening Completed Shingrix Vaccine Completed Pneumococcal Vaccine: 65+ Completed Alpha-1 Antitrypsin Deficiency Screening Discontinued Covid-19 Vaccine Discontinued ASSESSMENT/PLAN: 1. Sciatica, unspecified laterality - ICD9: 724.3, ICD10: M54.30 (primary diagnosis) Sciatica - Ice for localized tenderness - Warm moist heat for 20 min three times a day - Prednisone burst- see orders 2. Moderate obstructive sleep apnea - ICD9: 327.23, ICD10: G47.33 -Continue to work with neurology and pulmonology 3. Primary insomnia - ICD9: 307.42, ICD10: F51.01 - MAGNESIUM 100 MG ( GLYCINATE) CAPSULE - MELATONIN 1 MG CHEWABLE TABLET 4. Chronic 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 - ICD9: 724.2, 724.3, 338.29, ICD10: M54.41, G89.29 Chronic low back pain - Ice for localized tenderness - Warm moist heat for 20 min three times a day - Prednisone burst- see orders - PREDNISONE 20 MG TABLET - CONSULT TO PHYSICAL THERAPY 5. URI, acute - ICD9: 465.9, ICD10: J06.9 - Discussed viral etiology and rationale for treatment. - Symptomatic treatment with prn analgesia - Supportive care with fluids and rest - The patient may also use OTC cough and cold meds as needed, warm salt water gargles, throat lozenges and/or OTC throat spray as needed, and nasal saline gtts and suction prn. - Follow up in 3-5 days if symptoms persist or sooner if worsening of symptoms Allie eLmus APRN.HARMONIC ANALYST documented in this encounter [facility] 01-26-2024 Telephone encounter Note TC to patient. Unable to reach. Patient has an appt. At 140 with RR who will be out of the office after 11am today. Availability for an earlier appointment or can be R/S with SMITA at the same time. Lucina Granados MA [facility] 01-26-2024 Miscellaneous Notes TC to patient. Unable to reach. Patient has an appt. At 140 with RR who will be out of the office after 11am today. Availability for an earlier appointment or can be R/S with SMITA at the same time. Lucina Granados MA documented in this encounter [facility] 01-21-2024 Telephone encounter Note Pt advised of Padmini's message. Appointment scheduled with [facility] 01/26/24. Kina Villegas LPN [facility] 01-21-2024 Miscellaneous Notes Pt advised of Padmini's message. Appointment scheduled with [facility] 01/26/24. Kina Villegas LPN Patient has not seen PCP team recently. Should schedule a visit to discuss her specific sleep concerns. Patient calling, states that she thinks she does need a sleep aid. States it has been discussed at her OV several times and she always declines. Lately she has not been able to sleep more than an hour at a time and she has been falling asleep during the day. Please advise. documented in this encounter [facility] 01-21-2024 Telephone encounter Note Patient has not seen PCP team recently. Should schedule a visit to discuss her specific sleep concerns. [facility] 01-20-2024 Telephone encounter Note Patient calling, states that she thinks she does need a sleep aid. States it has been discussed at her OV several times and she always declines. Lately she has not been able to sleep more than an hour at a time and she has been falling asleep during the day. Please advise. [facility] 12-16-2023 Instructions Naomy Parker MD - 12/16/2023 11:43 AM EDT Restart omeprazole for acid reflux documented in this encounter [facility] 12-16-2023 History of Present illness Narrative Images from the original note were not included. . [facility] Note Patient name: Dianne Holly PCP: Dewayne Chung MD Referring: Deonte Douglas CNP CC: Shortness of breath, chronic cough, wheezing HPI: Dianne Holly 73 year old female current 45 pack year smoker with PMH significant for morbid obesity, HTN, HLD, MÓNICA, CKD, GERD being referred by sleep medicine for nocturnal issues interfering with use of her CPAP. Current settings auto CPAP 13 to 20 cm H2O with 1 L bleed in oxygen. She relates her history back to 2019 when she was severely ill in January double pneumonia. Likely had COVID infection at that time. Since then she has had problems with chronic cough. She has coughing jags, some sputum production, nocturnal coughing which interferes with her sleep and ability to use her CPAP machine. She was prescribed albuterol which does help. She was also prescribed Arnuity but states that she cannot remember to use it so she is not certain if this would have been helpful or not for her respiratory issues. In addition to coughing she has wheezing which is more prominent at night when she lies supine. No postprandial coughing. She has known acid reflux disease and had previously been on omeprazole 20 mg twice daily but she has not been taking this medication as she has no symptoms of reflux such as burning, belching. She gets short of breath when climbing stairs or carrying groceries. She attributed her shortness of breath to recent weight gain. She continues to smoke although she has cut back to half a pack a day. She is on Wellbutrin which has helped her cut back on her smoking. She is currently participating in lung cancer screening which was pertinent for mild upper lobe emphysema. Her respiratory symptoms do not seem to be correlating with changes in weather. She is concerned that there may be an allergic component as she had significant trouble when visiting her son. She was coughing the entire time. She has a dog and her son also had a dog, different breeds. She does not have any significant sinus congestion, drainage, itchy eyes, sneezing. DATA: PFT 05/2022: Review pulmonary function test show mild obstruction without improvement postbronchodilator Nocturnal oximetry Performed on CPAP with 1 liter bleed-in. SpO2 decreased 24 sec. To 82%. Basal SpO2 90% Labs: Component Ref Range & Units 4 mo ago (08/10/23) WBC 3.70 - 11.00 k/uL 8.54 RBC 3.90 - 5.20 m/uL 5.19 Hemoglobin 11.5 - 15.5 g/dL 15.2 Hematocrit 36.0 - 46.0 % 47.6 High MCV 80.0 - 100.0 fL 91.7 MCH 26.0 - 34.0 pg 29.3 MCHC 30.5 - 36.0 g/dL 31.9 RDW-CV 11.5 - 15.0 % 15.0 Platelet Count 150 - 400 k/uL 292 MPV 9.0 - 12.7 fL 10.2 Neutrophils % % 64.3 Abs Neut 1.45 - 7.50 k/uL 5.49 Lymphocytes % % 23.5 Abs Lymph 1.00 - 4.00 k/uL 2.01 Monocytes % % 8.8 Abs [place] <0.87 k/uL 0.75 Eosinophils % % 2.1 Abs Eosin <0.46 k/uL 0.18 Basophils % % 0.7 Abs Baso <0.11 k/uL 0.06 Immature Granulocytes % % 0.6 Abs Immature Gran <0.10 k/uL 0.05 NRBC /100 WBC 0.0 Absolute nRBC <0.01 k/uL <0.01 Diff Type Auto Imaging / Diagnostic Studies: DATE OF EXAM: Sep 24 2023 12:28PM [facility] 0562 - CT LUNG SCREEN WO IVCON / COMPARISON: CT 08/20/2022 RESULT: Are nodules present? Yes, 1-5 nodules Lung nodule comments: 2 mm left upper lobe nodule (57). 4 mm left fissural nodule (111). Stable opacity RIGHT upper lobe close to bronchial branch point series 5 image 72. Other findings: Degenerative changes of the thoracic spine. Increased areas of retained secretions/mucus impaction within bilateral lower lobe bronchi with some progression of LEFT lower lobe atelectasis, bronchial thickening, mild upper lobe predominant emphysema. Incidental coronary calcium as automatically processed and calculated using AI: I personally reviewed the images which is pertinent for mild upper lobe emphysema PAST MEDICAL HISTORY Diagnosis Date Adenoma of left adrenal gland 12/06/2018 Seen [facility] ER CT 11/28/2018 was stable in size since CT done 11/2015: benign. ADRENAL NODULE 11/17/2007 Anxiety state 11/19/2006 Arthritis Benign neoplasm of colon BPPV (benign paroxysmal positional vertigo) 04/03/2015 Chronic left shoulder pain 09/17/2015 Class 3 severe obesity due to excess calories without serious comorbidity with body mass index (BMI) of 45.0 to 49.9 in adult ([facility]) 06/18/2014 Coronary artery calcification 09/08/[address] 08/2022 DDD (degenerative disc disease), lumbar 01/15/2016 Delayed emergence from general anesthesia Diverticulitis of large intestine without perforation or abscess without bleeding 06/03/2016 Elevated blood sugar 08/07/2023 Elevated hemoglobin A1c 08/07/2023 Emphysema of lung ([facility]) 06/18/2014 Encounter for Medicare annual wellness exam 11/23/2017 Medicare Part B: 11/29/2016 last done: 08/11/2023 Essential hypertension 11/19/2006 Family history of early [...] disorder, in remission (HCC) 11/23/2017 Smoker 05/27/2010 Stage 3a chronic kidney disease (HCC) 08/11/2023 Status post right hip replacement 10/01/2017 Venous insufficiency (chronic) (peripheral) 10/16/2014 Vertigo 06/14/2017 Vitamin B12 deficiency 05/26/2021 ALLERGIES Allergen Reactions Flagyl [Metronidazo* Itching, Other: See Comments nausea/ throat swelling Ibuprofen Vomiting Hematemesis - [facility] 06/21/2012 Nickel Rash Can only wear gold earrings omeprazole (PRILOSEC) 20 mg capsule Take 1 capsule by mouth two times a day. solifenacin (VESICARE) 5 mg tablet Take 1 tablet by mouth once daily. verapamil SR (CALAN SR) 180 mg CR tablet Take 1.5 tablets by mouth once daily. buPROPion SR (WELLBUTRIN SR) 150 mg 12 hr tablet Take 1 tablet by mouth once daily. cyanocobalamin (VITAMIN B-12) 1,000 mcg tab Take 1 tablet by mouth once daily. lisinopril-hydroCHLOROthiazide (ZESTORETIC) 20-12.5 mg per tablet Take 2 tablets by mouth once daily. pravastatin (PRAVACHOL) 40 mg tablet Take 1 tablet by mouth daily at bedtime. sertraline (ZOLOFT) 100 mg tablet Take 1.5 tablets by mouth every evening. ondansetron orally disintegrating (ZOFRAN ODT) 4 mg disintegrating tablet Take 1 tablet by mouth every 8 hours as needed. ftkizglcrqy-qwjkwznqv-mpwgifmn (TRELEGY ELLIPTA) 100-62.5-25 mcg inhalation powder Inhale 1 Puff as instructed once daily. nicotine (NICODERM CQ) 14 mg/24 hr Apply 1 Patch as directed every 24 hours. For 3 weeks then decrease to the 7 mg patch nicotine (NICODERM) 7 mg/24 hr Apply 1 Patch as directed every 24 hours. Start after use of 14 mg patches albuterol HFA (PROVENTIL HFA, VENTOLIN HFA) 90 mcg/actuation inhaler Inhale 2 Puffs as instructed every 4 hours as needed. CPAP/BIPAP/OTHER autoCPAP 13-20 cmH2O with 1.5 LPM O2 bleed in DME [employer] triamcinolone acetonide (KENALOG) 0.1 % cream Apply 1 application to affected area three times a day. Apply sparingly to area for rash/itching. MEDICAL SUPPLY BEDSIDE COMMODE. dx: right total hip replacement. 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 Pets: Dog FAMILY HISTORY Problem Relation Age of Onset Colon Cancer Mother Diabetes Mother rectal cancer/kidney failure Melanoma Father other (obese) Sister hypertension Colon Cancer Sister Breast Cancer Sister 55 triple negative Blood Disease Sister amyloidosis other (obese) Brother Coronary Artery Disease Brother 47 1st AMI Heart Attack Brother other (Liver Issues) Daughter Alcohol/Drug Daughter PAST SURGICAL HISTORY Procedure Laterality Date ARTHROSCOPY KNEE DIAGNOSTIC W/WO SYNOVIAL BX SPX 2001 Arthroscopy, knee right ARTHRP ACETBLR/PROX FEM PROSTC AGRFT/ALGRFT Right 06/23/2017 Hip replacement, total BREAST SURGERY HX COLONOSCOPY 07/24/2021 COLONOSCOPY & POLYPECTOMY 06/16/2016 repeat 5 years COLONOSCOPY W/BIOPSY SINGLE/MULTIPLE 04/01/2009 EGD TRANSORAL BIOPSY SINGLE/MULTIPLE 06/22/[address] [facility] [address] Marroquin FRACTURE SURGERY JOINT REPLACEMENT [...] Hysterectomy, EDWINA - ovaries remain VAGINAL HYSTERECTOMY PMH, Social history, family history and surgical history reviewed and updated in EMR REVIEW OF SYSTEMS: CONSTITUTIONAL: No fevers, chills, nightsweats, unintended weight loss. Weight gain HEENT: Denies nasal congestion/sinus symptoms, problematic allergy problems. EYES: No visual changes, itchy eyes CARDIOVASCULAR: No chest pain, palpitations, orthopnea, PND, edema. PULM: See HPI GI: No dysphagia/odynophagia, problematic reflux NEURO: No balance problems, peripheral weakness/paresthesias or numbness of concern. Excessive daytime fatigue MUSC-SKEL: No joint pain, swelling, or erythema. PSY: No concerns regarding depression, anxiety INTEGUMENTARY: No new skin changes or rashes or eczema PHYSICAL EXAMINATION: Resp 16 Wt 274 lb (124.3kg) BP 112/72, SpO2 97% on room air General Appearance: Obese female, NAD. Skin: Skin color, turgor normal, no suspicious rashes or lesions. Dry skin Head: Normocephalic, no masses, lesions, tenderness or abnormalities. Eyes: Sclera, conjunctiva normal. Oropharynx: No oral lesions, erythema or posterior pharyngeal cobblestoning Neck: No JVD, no masses, no adenopathy. Lungs: Not labored, normal to percussion, expiratory wheezes Heart: Rate and rhythm, no murmurs. Extremities: Ankle edema, no clubbing. Assessment/Plan: 1. Mild COPD -Clinical history and pulmonary function testing consistent with COPD -Smoking cessation is absolutely necessary -Changed inhaled therapy to Trelegy Ellipta with continued use of albuterol as needed -Doubt significant allergic component but ordered IgE level as a screen 2. Cigarette smoker -Current smoker with sequelae of COPD -Smoking cessation is paramount -She will continue on Wellbutrin with additional aid of nicotine replacement 3. MÓNICA -Her excessive daytime fatigue is likely due to untreated sleep apnea -If her COPD symptoms are controlled she may be able to better tolerate her CPAP 4. GERD -Prominent nocturnal symptoms suggestive of reflux -Discussed antireflux measures -Restart proton pump inhibitor 5. Morbid obesity -BMI 48 -Aggressive weight loss advised I spent a total of 57 minutes on the date of the service which included preparing to see the patient, [id number] patient care, completing clinical documentation, obtaining and/or reviewing separately obtained history, performing a medically appropriate examination, counseling and educating the patient/family/caregiver, ordering medications, tests, or procedures, and independently interpreting results (not separately reported). Naomy Parker MD [facility] documented in this encounter [facility] 12-16-2023 Note HNO ID: [id number] Author: NAOMY PARKER MD Service: ? Author Type: Physician Type: Progress Notes Filed: 12/16/2023 15:51 Note Text: . [facility] Note Patient name: Dianne Holly PCP: Dewayne Chung MD Referring: Deonte Douglas CNP CC: Shortness of breath, chronic cough, wheezing HPI: Dianne Holly 73 year old female current 45 pack year smoker with PMH significant for morbid obesity, HTN, HLD, MÓNICA, CKD, GERD being referred by sleep medicine for nocturnal issues interfering with use of her CPAP. Current settings auto CPAP 13 to 20 cm H2O with 1 L bleed in oxygen. She relates her history back to 2018 when she was severely ill in January double pneumonia. Likely had COVID infection at that time. Since then she has had problems with chronic cough. She has coughing jags, some sputum production, nocturnal coughing which interferes with her sleep and ability to use her CPAP machine. She was prescribed albuterol which does help. She was also prescribed Arnuity but states that she cannot remember to use it so she is not certain if this would have been helpful or not for her respiratory issues. In addition to coughing she has wheezing which is more prominent at night when she lies supine. No postprandial coughing. She has known acid reflux disease and had previously been on omeprazole 20 mg twice daily but she has not been taking this medication as she has no symptoms of reflux such as burning, belching. She gets short of breath when climbing stairs or carrying groceries. She attributed her shortness of breath to recent weight gain. She continues to smoke although she has cut back to half a pack a day. She is on Wellbutrin which has helped her cut back on her smoking. She is currently participating in lung cancer screening which was pertinent for mild upper lobe emphysema. Her respiratory symptoms do not seem to be correlating with changes in weather. She is concerned that there may be an allergic component as she had significant trouble when visiting her son. She was coughing the entire time. She has a dog and her son also had a dog, different breeds. She does not have any significant sinus congestion, drainage, itchy eyes, sneezing. DATA: PFT 05/2022: Review pulmonary function test show mild obstruction without improvement postbronchodilator Nocturnal oximetry Performed on CPAP with 1 liter bleed-in. SpO2 decreased 24 sec. To 82%. Basal SpO2 90% Labs: Component Ref Range AND Units 4 mo ago (08/10/23) WBC 3.70 - 11.00 k/uL 8.54 RBC 3.90 - 5.20 m/uL 5.19 Hemoglobin 11.5 - 15.5 g/dL 15.2 Hematocrit 36.0 - 46.0 % 47.6 High MCV 80.0 - 100.0 fL 91.7 MCH 26.0 - 34.0 pg 29.3 MCHC 30.5 - 36.0 g/dL 31.9 RDW-CV 11.5 - 15.0 % 15.0 Platelet Count 150 - 400 k/uL 292 MPV 9.0 - 12.7 fL 10.2 Neutrophils % % 64.3 Abs Neut 1.45 - 7.50 k/uL 5.49 Lymphocytes % % 23.5 Abs Lymph 1.00 - 4.00 k/uL 2.01 Monocytes % % 8.8 Abs [place] <0.87 k/uL 0.75 Eosinophils % % 2.1 Abs Eosin <0.46 k/uL 0.18 Basophils % % 0.7 Abs Baso <0.11 k/uL 0.06 Immature Granulocytes % % 0.6 Abs Immature Gran <0.10 k/uL 0.05 NRBC /100 WBC 0.0 Absolute nRBC <0.01 k/uL <0.01 Diff Type Auto Imaging / Diagnostic Studies: DATE OF EXAM: Sep 24 2023 12:28PM [facility] 0562 - CT LUNG SCREEN WO IVCON / COMPARISON: CT 08/20/2022 RESULT: Are nodules present? Yes, 1-5 nodules Lung nodule comments: 2 mm left upper lobe nodule (57). 4 mm left fissural nodule (111). Stable opacity RIGHT upper lobe close to bronchial branch point series 5 image 72. Other findings: Degenerative changes of the thoracic spine. Increased areas of retained secretions/mucus impaction within bilateral lower lobe bronchi with some progression of LEFT lower lobe atelectasis, bronchial thickening, mild upper lobe predominant emphysema. Incidental coronary calcium as automatically processed and calculated using AI: I personally reviewed the images which is pertinent for mild upper lobe emphysema PAST MEDICAL HISTORY Diagnosis Date Adenoma of left adrenal gland 12/06/2018 Seen [facility] ER CT 11/28/2018 was stable in size since CT done 11/2015: benign. ADRENAL NODULE 11/17/2007 Anxiety state 11/19/2006 Arthritis Benign neoplasm of colon BPPV (benign paroxysmal positional vertigo) 04/03/2015 Chronic left shoulder pain 09/17/2015 Class 3 severe obesity due to excess calories without serious comorbidity with body mass index (BMI) of 45.0 to 49.9 in adult ([facility]) 06/18/2014 Coronary artery calcification 09/08/[address] 08/2022 DDD (degenerative disc disease), lumbar 01/15/2016 Delayed emergence from general anesthesia Diverticulitis of large intestine without perforation or abscess without bleeding 06/03/2016 Elevated blood sugar 08/07/2023 Elevated hemoglobin A1c 08/07/2023 Emphysema of ivan (more content not included)... [facility] 11-08-2023 Note HNO ID: [id number] Author: KEKE BAE APRN.HARMONIC ANALYST Service: ? Author Type: Nurse Practitioner Type: Progress Notes Filed: 11/08/2023 13:39 Note Text: Subjective HPI HPI Dianne Holly is a 72 year old female who presents today for CC of cough, congestion. This started 2-3 days ago. Has tried otc medication for relief. Symptoms are worsened by nothing. Risk factors hx of copd. .Patient presents with: Chest Congestion: cough x 2-3 days PAST MEDICAL HISTORY 12/06/2018: Adenoma of left adrenal gland Comment: Seen [facility] ER CT 11/28/2018 was stable in size since CT done 11/2015: benign. 11/17/2007: ADRENAL NODULE 11/19/2006: Anxiety state No date: Arthritis No date: Benign neoplasm of colon 04/03/2015: BPPV (benign paroxysmal positional vertigo) 09/17/2015: Chronic left shoulder pain 06/18/2014: Class 3 severe obesity due to excess calories without serious comorbidity with body mass index (BMI) of 45.0 to 49.9 in adult ([facility]) 09/08/2022: Coronary artery calcification Comment: Moderate per chest CT 08/202201/15/2016: DDD (degenerative disc disease), lumbar No date: Delayed emergence from general anesthesia 06/03/2016: Diverticulitis of large intestine without perforation or abscess without bleeding 08/07/2023: Elevated blood sugar 08/07/2023: Elevated hemoglobin A1c 06/18/2014: Emphysema of lung (HCC) 11/23/2017: Encounter for Medicare annual wellness exam Comment: Medicare Part B: 11/29/2016 last done: 08/11/2023 11/19/2006: Essential hypertension 09/08/2022: Family history of early CAD Comment: Brother at age 47 11/19/2006: Gastroesophageal reflux disease without esophagitis 11/19/2006: Generalized osteoarthrosis, unspecified site No date: Internal hemorrhoids 11/23/2017: Medicare annual wellness visit, initial Comment: Medicare Part B: 11/29/2016 last done: 11/16/2018 03/19/2008: Mixed hyperlipidemia 08/03/2022: Moderate obstructive sleep apnea Comment: Consult sleep med 07/202201/15/2016: Osteoarthritis of lumbar spine 11/19/2006: Osteoarthritis of multiple joints 01/16/2019: Overactive bladder 09/21/2016: Primary osteoarthritis of right hip 11/23/2017: Primary ovarian failure 11/23/2017: Recurrent major depressive disorder, in remission ([facility]) 05/27/2010: Smoker 08/11/2023: Stage 3a chronic kidney disease ([facility]) 10/01/2017: Status post right hip replacement 10/16/2014: Venous insufficiency (chronic) (peripheral) 06/14/2017: Vertigo 05/26/2021: Vitamin B12 deficiency PAST SURGICAL HISTORY 2001: ARTHROSCOPY KNEE DIAGNOSTIC W/WO SYNOVIAL BX SPX Comment: Arthroscopy, knee right 06/23/2017: ARTHRP ACETBLR/PROX FEM PROSTC AGRFT/ALGRFT; Right Comment: Hip replacement, total No date: BREAST SURGERY HX 07/24/2021: COLONOSCOPY 06/16/2016: COLONOSCOPY AND POLYPECTOMY Comment: repeat 5 years 04/01/2009: COLONOSCOPY W/BIOPSY SINGLE/MULTIPLE 06/22/2012: EGD TRANSORAL BIOPSY SINGLE/MULTIPLE Comment: [facility] Dr Marroquin No date: FRACTURE SURGERY No date: JOINT REPLACEMENT HX 1973: LIG/TRNSXJ FLP TUBE ABDL/VAG APPR UNI/BI Comment: Tubal ligation 1985: PAST SURGICAL HISTORY OF Comment: ovarian cyst 2006: PAST SURGICAL HISTORY OF Comment: right breast removed bonnie. tumor 05/2008: PAST SURGICAL HISTORY OF Comment: bilateral eye lid surgery 12/22/2006: REM LESIO TRUNK,ARM,LEG 1.1 -2.0CM Comment: Exc. right lower back skin lesion No date: SKIN BIOPSY HX 1987: TOTAL ABDOMINAL HYSTERECT W/WO RMVL TUBE OVARY Comment: Hysterectomy, EDWINA - ovaries remain No date: VAGINAL HYSTERECTOMY ALLERGIES Flagyl [Metronidazole Hcl], Ibuprofen, and Nickel MEDICATIONS omeprazole (PRILOSEC) 20 mg capsule Take 1 capsule by mouth two times a day. solifenacin (VESICARE) 5 mg tablet Take 1 tablet by mouth once daily. CPAP/BIPAP/OTHER autoCPAP 13-20 cmH2O with 1.5 LPM O2 bleed in D[employer] verapamil SR (CALAN SR) 180 mg CR tablet Take 1.5 tablets by mouth once daily. albuterol HFA (PROVENTIL HFA, VENTOLIN HFA) 90 mcg/actuation inhaler Inhale 2 Puffs as instructed every 6 hours as needed. buPROPion SR (WELLBUTRIN SR) 150 mg 12 hr tablet Take 1 tablet by mouth once daily. cyanocobalamin (VITAMIN B-12) 1,000 mcg tab Take 1 tablet by mouth once daily. fluticasone furoate (ARNUITY ELLIPTA) 100 mcg/actuation inhaler Inhale 1 Puff as instructed once daily. Do a quick inhalation prior to brushing teeth. Then brush teeth, rinse, gargle and spit. lisinopril-hydroCHLOROthiazide (ZESTORETIC) 20-12.5 mg per tablet Take 2 tablets by mouth once daily. pravastatin (PRAVACHOL) 40 mg tablet Take 1 tablet by mouth daily at bedtime. sertraline (ZOLOFT) 100 mg tablet Take 1.5 tablets by mouth every evening. triamcinolone acetonide (KENALOG) 0.1 % cream Apply 1 application to affected area three times a day. Apply sparingly to area for rash/itching. ondansetron orally disintegrating (ZOFRAN ODT) 4 mg disintegrating tablet Take 1 tablet by mouth every 8 hours as needed. ME (more content not included)... [facility] 11-08-2023 History of Present illness Narrative Subjective HPI HPI Dianne Holly is a 72 year old female who presents today for CC of cough, congestion. This started 2-3 days ago. Has tried otc medication for relief. Symptoms are worsened by nothing. Risk factors hx of copd. .Patient presents with: Chest Congestion: cough x 2-3 days PAST MEDICAL HISTORY 12/06/2018: Adenoma of left adrenal gland Comment: Seen [facility] ER CT 11/28/2018 was stable in size since CT done 11/2015: benign. 11/17/2007: ADRENAL NODULE 11/19/2006: Anxiety state No date: Arthritis No date: Benign neoplasm of colon 04/03/2015: BPPV (benign paroxysmal positional vertigo) 09/17/2015: Chronic left shoulder pain 06/18/2014: Class 3 severe obesity due to excess calories without serious comorbidity with body mass index (BMI) of 45.0 to 49.9 in adult ([facility]) 09/08/2022: Coronary artery calcification Comment: Moderate per chest CT 08/202201/15/2016: DDD (degenerative disc disease), lumbar No date: Delayed emergence from general anesthesia 06/03/2016: Diverticulitis of large intestine without perforation or abscess without bleeding 08/07/2023: Elevated blood sugar 08/07/2023: Elevated hemoglobin A1c 06/18/2014: Emphysema of lung ([facility]) 11/23/2017: Encounter for Medicare annual wellness exam Comment: Medicare Part B: 11/29/2016 last done: 08/11/2023 11/19/2006: Essential hypertension 09/08/2022: Family history of early CAD Comment: Brother at age 47 11/19/2006: Gastroesophageal reflux disease without esophagitis 11/19/2006: Generalized osteoarthrosis, unspecified site No date: Internal hemorrhoids 11/23/2017: Medicare annual wellness visit, initial Comment: Medicare Part B: 11/29/2016 last done: 11/16/2018 03/19/2008: Mixed hyperlipidemia 08/03/2022: Moderate obstructive sleep apnea Comment: Consult sleep med 07/202201/15/2016: Osteoarthritis of lumbar spine 11/19/2006: Osteoarthritis of multiple joints 01/16/2019: Overactive bladder 09/21/2016: Primary osteoarthritis of right hip 11/23/2017: Primary ovarian failure 11/23/2017: Recurrent major depressive disorder, in remission ([facility]) 05/27/2010: Smoker 08/11/2023: Stage 3a chronic kidney disease ([facility]) 10/01/2017: Status post right hip replacement 10/16/2014: Venous insufficiency (chronic) (peripheral) 06/14/2017: Vertigo 05/26/2021: Vitamin B12 deficiency PAST SURGICAL HISTORY 2001: ARTHROSCOPY KNEE DIAGNOSTIC W/WO SYNOVIAL BX SPX Comment: Arthroscopy, knee right 06/23/2017: ARTHRP ACETBLR/PROX FEM PROSTC AGRFT/ALGRFT; Right Comment: Hip replacement, total No date: BREAST SURGERY HX 07/24/2021: COLONOSCOPY 06/16/2016: COLONOSCOPY & POLYPECTOMY Comment: repeat 5 years 04/01/2009: COLONOSCOPY W/BIOPSY SINGLE/MULTIPLE 06/22/2012: EGD TRANSORAL BIOPSY SINGLE/MULTIPLE Comment: [facility] Dr Marroquin No date: FRACTURE SURGERY No date: JOINT REPLACEMENT HX 1973: LIG/TRNSXJ FLP TUBE ABDL/VAG APPR UNI/BI Comment: Tubal ligation 1984: PAST SURGICAL HISTORY OF Comment: ovarian cyst 2006: PAST SURGICAL HISTORY OF Comment: right breast removed bonnie. tumor 05/2008: PAST SURGICAL HISTORY OF Comment: bilateral eye lid surgery 12/22/2006: REM LESIO TRUNK,ARM,LEG 1.1 -2.0CM Comment: Exc. right lower back skin lesion No date: SKIN BIOPSY HX 1987: TOTAL ABDOMINAL HYSTERECT W/WO RMVL TUBE OVARY Comment: Hysterectomy, EDWINA - ovaries remain No date: VAGINAL HYSTERECTOMY ALLERGIES Flagyl [Metronidazole Hcl], Ibuprofen, and Nickel MEDICATIONS omeprazole (PRILOSEC) 20 mg capsule Take 1 capsule by mouth two times a day. solifenacin (VESICARE) 5 mg tablet Take 1 tablet by mouth once daily. CPAP/BIPAP/OTHER autoCPAP 13-20 cmH2O with 1.5 LPM O2 bleed in DME [employer] verapamil SR (CALAN SR) 180 mg CR tablet Take 1.5 tablets by mouth once daily. albuterol HFA (PROVENTIL HFA, VENTOLIN HFA) 90 mcg/actuation inhaler Inhale 2 Puffs as instructed every 6 hours as needed. buPROPion SR (WELLBUTRIN SR) 150 mg 12 hr tablet Take 1 tablet by mouth once daily. cyanocobalamin (VITAMIN B-12) 1,000 mcg tab Take 1 tablet by mouth once daily. fluticasone furoate (ARNUITY ELLIPTA) 100 mcg/actuation inhaler Inhale 1 Puff as instructed once daily. Do a quick inhalation prior to brushing teeth. Then brush teeth, rinse, gargle and spit. lisinopril-hydroCHLOROthiazide (ZESTORETIC) 20-12.5 mg per tablet Take 2 tablets by mouth once daily. pravastatin (PRAVACHOL) 40 mg tablet Take 1 tablet by mouth daily at bedtime. sertraline (ZOLOFT) 100 mg tablet Take 1.5 tablets by mouth every evening. triamcinolone acetonide (KENALOG) 0.1 % cream Apply 1 application to affected area three times a day. Apply sparingly to area for rash/itching. ondansetron orally disintegrating (ZOFRAN ODT) 4 mg disintegrating tablet Take 1 tablet by mouth every 8 hours as needed. MEDICAL SUPPLY BEDSIDE COMMODE. dx: right total hip replacement. z96.641 COMPOUNDED PRESCRIPTION Bedside Commode Dx: right total hip replacement Z96.641 doxycycline monohydrate 100 mg tablet Take 1 tablet by mouth two times a day for 7 days. predniSONE (DELTASONE) 20 mg tablet Take 2 tablets by mouth once daily for 5 days. FAMILY HISTORY Problem Relation Age of Onset Colon Cancer Mother Diabetes Mother rectal cancer/kidney failure Melanoma Father other (obese) Sister hypertension Colon Cancer Sister Breast Cancer Sister 55 triple negative Blood Disease Sister amyloidosis other (obese) Brother Coronary Artery Disease Brother 47 1st AMI Heart Attack Brother other (Liver Issues) Daughter Alcohol/Drug Daughter Social History Tobacco Use Smoking status: Every Day Current packs/day: 0.80 Average packs/day: 0.8 packs/day for 56.7 years (45.4 ttl pk-yrs) Types: Cigarettes Start date: 03/01/1967 Smokeless tobacco: Never Tobacco comments: recently cut back to 03/02 ppd Vaping Use Vaping status: Never Used Substance Use Topics Alcohol use: Yes Comment: rare Drug use: No Review of Systems Constitutional: Negative for fever. HENT: Positive for congestion and sore throat. Negative for ear pain and nosebleeds. Respiratory: Positive for cough and sputum production (colored.). Negative for shortness of breath and wheezing. Cardiovascular: Negative for chest pain. Musculoskeletal: Negative for neck pain. Objective Blood pressure 126/80, pulse 74, temperature 36.7 C (98.1 F), resp. rate 18, weight 122.5 kg (270 lb 1 oz), SpO2 94%. Latest Ref Rng 08/10/2023 Protein, Total 6.3 - 8.0 g/dL 7.3 Albumin 3.9 - 4.9 g/dL 4.5 Calcium 8.5 - 10.2 mg/dL 10.2 Bilirubin, Total 0.2 - 1.3 mg/dL 0.7 Alkaline Phosphatase 34 - 123 U/L 73 AST 13 - 35 U/L 21 ALT 7 - 38 U/L 25 Glucose 74 - 99 mg/dL 87 BUN 7 - 21 mg/dL 24 (H) Creatinine 0.58 - 0.96 mg/dL 1.21 (H) Sodium 136 - 144 mmol/L 140 Potassium 3.7 - 5.1 mmol/L 4.3 Chloride 98 - 107 mmol/L 100 CO2 22 - 30 mmol/L 25 Anion Gap 8 - 15 mmol/L 15 eGFR >=60 mL/min/1.73m 48 (L) Physical Exam Constitutional: General: She is not in acute distress. Appearance: She is not toxic-appearing or diaphoretic. HENT: Head: Normocephalic and atraumatic. Cardiovascular: Rate and Rhythm: Normal rate and regular rhythm. Heart sounds: Normal heart sounds, S1 normal and S2 normal. Pulmonary: Effort: Pulmonary effort is normal. Breath sounds: Wheezing (scattered bilat) and rhonchi (scattered bilat) present. No decreased breath sounds or rales. Lymphadenopathy: Cervical: No cervical adenopathy. Right cervical: No superficial cervical adenopathy. Left cervical: No superficial cervical adenopathy. Neurological: Mental Status: She is alert and oriented to person, place, and time. Gait: Gait is intact. ASSESSMENT/PLAN: 1. COPD with exacerbation (HCC) - ICD9: 491.21, ICD10: J44.1 (primary diagnosis) - Discussed supportive care - Limit exposure to smoke and other inhaled irritants - Discussed possible red flags and when to seek medical attention - Follow up in 3-5 days or sooner if no better or worse -If you experience chest pain/shortness of breath go to ER - DOXYCYCLINE MONOHYDRATE 100 MG TABLET - PREDNISONE 20 MG TABLET 2. Acute cough - ICD9: 786.2, ICD10: R05.1 - XR CHEST 2V FRONTAL/LAT IMPRESSION: No acute significant radiographic abnormality. Dictated by : SANJAY MENDEZ MD 3. URI, acute - ICD9: 465.9, ICD10: J06.9 - Discussed viral etiology and rationale for treatment. - Symptomatic treatment with prn analgesia - Supportive care with fluids and rest - Follow up in 3-5 days if symptoms persist or sooner if worsening of symptoms If positive for covid is a candidate for paclovid, will need reduced dose d/t renal function. - COVID & INFLUENZA A/B & RSV PCR, ROUTINE Keke Bae APRN.HARMONIC ANALYST documented in this encounter [facility] 11-08-2023 Telephone encounter Note Pt returned call and given provider's message below with verbalized understanding. [facility] 11-08-2023 Miscellaneous Notes Pt returned call and given provider's message below with verbalized understanding. Message left for pt to call back for results. Juil Pena MA Let patient know bone strength study showed normal bone strength. documented in this encounter [facility] 11-08-2023 History of Present illness Narrative Radiology Service Progress Note PATIENT NAME: Dianne Holly DATE OF SERVICE: November 08, 2023 TIME: 12:36 PM PATIENT IDENTITY VERIFICATION COMPLETED USING TWO (2) IDENTIFIERS: Name and Date of confirmed by patient verbally. FALL SCREENING: Has the patient had 2 falls in the last year or 1 fall with injury or currently using an Ambulatory Assistive Device (Walker, Cane, Wheelchair, Crutches, etc.)? No PATIENT GENDER DATA: Female. status: : No status: NO. PATIENT RELEVANT IMPLANT DATA REVIEWED: Not Applicable PATIENT PRESENTS WITH AN IMPLANTABLE OR ATTACHED HEEL LINING PASTER: No RADIOLOGY DEPARTMENT: General X-ray: Exam(s) Completed: Chest X-Ray PERIPHERAL IV DATA: Not applicable SIGNED BY: RT Rocky(R) November 08, 2023 12:36 PM documented in this encounter [facility] 11-08-2023 Note HNO ID: [id number] Author: SABINO PARIKH RT(R) Service: Radiology Author Type: Technologist Type: Progress Notes Filed: 11/08/2023 12:43 Note Text: Radiology Service Progress Note PATIENT NAME: Dianne Holly DATE OF SERVICE: November 08, 2023 TIME: 12:36 PM PATIENT IDENTITY VERIFICATION COMPLETED USING TWO (2) IDENTIFIERS: Name and Date of confirmed by patient verbally. FALL SCREENING: Has the patient had 2 falls in the last year or 1 fall with injury or currently using an Ambulatory Assistive Device (Walker, Cane, Wheelchair, Crutches, etc.)? No PATIENT GENDER DATA: Female. status: : No status: NO. PATIENT RELEVANT IMPLANT DATA REVIEWED: Not Applicable PATIENT PRESENTS WITH AN IMPLANTABLE OR ATTACHED HEEL LINING PASTER: No RADIOLOGY DEPARTMENT: General X-ray: Exam(s) Completed: Chest X-Ray PERIPHERAL IV DATA: Not applicable SIGNED BY: RT Rocky(R) November 08, 2023 12:36 PM [facility] 11-08-2023 Telephone encounter Note Message left for pt to call back for results. Juli Pena MA [facility] 11-06-2023 Telephone encounter Note Let patient know bone strength study showed normal bone strength. [facility] 11-04-2023 History of Present illness Narrative Radiology Service Progress Note PATIENT NAME: Dianne Holly DATE OF SERVICE: November 04, 2023 TIME: 1:46 PM PATIENT IDENTITY VERIFICATION COMPLETED USING TWO (2) IDENTIFIERS: Name and Date of confirmed by patient verbally. FALL SCREENING: Has the patient had 2 falls in the last year or 1 fall with injury or currently using an Ambulatory Assistive Device (Walker, Cane, Wheelchair, Crutches, etc.)? No PATIENT GENDER DATA: Female. status: : No status: NO. PATIENT RELEVANT IMPLANT DATA REVIEWED: Not Applicable PATIENT PRESENTS WITH AN IMPLANTABLE OR ATTACHED HEEL LINING PASTER: No RADIOLOGY DEPARTMENT: Bone Density PERIPHERAL IV DATA: Not applicable SIGNED BY: RT Mikel(R) November 04, 2023 1:46 PM documented in this encounter [facility] 11-04-2023 Note HNO ID: [id number] Author: MERVIN SOLANO RT(R) Service: ? Author Type: Technologist Type: Progress Notes Filed: 11/04/2023 14:02 Note Text: Radiology Service Progress Note PATIENT NAME: Dianne Holly DATE OF SERVICE: November 04, 2023 TIME: 1:46 PM PATIENT IDENTITY VERIFICATION COMPLETED USING TWO (2) IDENTIFIERS: Name and Date of confirmed by patient verbally. FALL SCREENING: Has the patient had 2 falls in the last year or 1 fall with injury or currently using an Ambulatory Assistive Device (Walker, Cane, Wheelchair, Crutches, etc.)? No PATIENT GENDER DATA: Female. status: : No status: NO. PATIENT RELEVANT IMPLANT DATA REVIEWED: Not Applicable PATIENT PRESENTS WITH AN IMPLANTABLE OR ATTACHED HEEL LINING PASTER: No RADIOLOGY DEPARTMENT: Bone Density PERIPHERAL IV DATA: Not applicable SIGNED BY: RT Mkiel(R) November 04, 2023 1:46 PM [facility] 10-20-2023 Telephone encounter Note PCP is agreeable to increasing the dose of omeprazole 20 mg to twice daily. Rx sent to pharmacy and left pt a message with the details. Dorian Kern APRN.CNP [facility] 10-20-2023 Miscellaneous Notes PCP is agreeable to increasing the dose of omeprazole 20 mg to twice daily. Rx sent to pharmacy and left pt a message with the details. Dorian Kern APRN.CNP documented in this encounter [facility] 10-20-2023 Note Patient Outreach (IN [facility]) DIANNE HOLLY ([id number]) 1950 F Date Time Provider Department 10/20/23 DEWAYNE CHUNG During your visit today, we recorded the following information about you: Allergies As of Date: 10/20/2023 Noted Allergy Reaction FLAGYL (METRONIDAZOLE HCL) 01/29/2009 9 - Itching 14 - Other: See Comments Comments: nausea/ throat swelling IBUPROFEN 07/04/2012 11 - Vomiting Comments: Hematemesis - [facility] 06/21/2012 NICKEL 11/10/2016 2 - Rash Comments: Can only wear gold earrings Date Reviewed: 10/18/2023 Reviewed by: Katia Fitzgerald LPN - Fully Assessed Visit Diagnosis:Encounter for screening mammogram for breast cancer [Z12.31] Order(s):[facility] SCREENING Tj OVALLE [[id number]] Order #: [id number] FUTURE Prescriptions as of 10/25/2023 - omeprazole (PRILOSEC) 20 mg capsule Take 1 capsule by mouth two times a day. - solifenacin (VESICARE) 5 mg tablet Take 1 tablet by mouth once daily. - CPAP/BIPAP/OTHER autoCPAP 13-20 cmH2O with 1.5 LPM O2 bleed in D[employer] - verapamil SR (CALAN SR) 180 mg CR tablet Take 1.5 tablets by mouth once daily. - albuterol HFA (PROVENTIL HFA, VENTOLIN HFA) 90 mcg/actuation inhaler Inhale 2 Puffs as instructed every 6 hours as needed. - buPROPion SR (WELLBUTRIN SR) 150 mg 12 hr tablet Take 1 tablet by mouth once daily. - cyanocobalamin (VITAMIN B-12) 1,000 mcg tab Take 1 tablet by mouth once daily. - fluticasone furoate (ARNUITY ELLIPTA) 100 mcg/actuation inhaler Inhale 1 Puff as instructed once daily. Do a quick inhalation prior to brushing teeth. Then brush teeth, rinse, gargle and spit. - lisinopril-hydroCHLOROthiazide (ZESTORETIC) 20-12.5 mg per tablet Take 2 tablets by mouth once daily. - pravastatin (PRAVACHOL) 40 mg tablet Take 1 tablet by mouth daily at bedtime. - sertraline (ZOLOFT) 100 mg tablet Take 1.5 tablets by mouth every evening. - triamcinolone acetonide (KENALOG) 0.1 % cream Apply 1 application to affected area three times a day. Apply sparingly to area for rash/itching. - ondansetron orally disintegrating (ZOFRAN ODT) 4 mg disintegrating tablet Take 1 tablet by mouth every 8 hours as needed. - MEDICAL SUPPLY BEDSIDE COMMODE. dx: right total hip replacement. z96.641 - COMPOUNDED PRESCRIPTION Bedside Commode Dx: right total hip replacement Z96.641 Problem List As Of Date 10/20/2023 Noted Resolved Gastroesophageal reflux disease without esophag*11/19/2006 [...] Osteoarthritis of right hip [M16.11] 06/23/2017 06/25/2017 Encounter for Medicare annual wellness exam [Z0*11/23/2017 Screening for osteoporosis [Z13.820] 11/23/2017 Primary ovarian [...] 07/18/2019 Advance directive discussed with patient [Z71.8*05/26/2021 Vitamin (more content not included)... [facility] 10-18-2023 Instructions Dorian Kern APRN.CNP - 10/18/2023 2:24 PM EDT Consider increasing prilosec to twice daily. Acapella device or mucus clearing device online. Use it 1-2 times daily. Lung nodule/s: all previously seen nodule/s have not changed in size or characteristic/resolved and there are no new nodules of concern. Please return in one year for the following 2 visits on the same day: Annual low-dose CT chest Lung cancer screening Provider visit. This recommendation is subject to change pending the final report from radiology. I will notify you of the final radiology report recommendations when available by [employer] message, letter, or phone call. We will also notify your referring provider/PCP of the results and recommendations. If you didn t schedule this before you left the office or need to reschedule, you can call in to schedule it anytime: [facility] [phone] [facility] [phone] All other [facility] locations [phone] Feel free to reach out for any questions or concerns, Dorian Kern APRN.CNP Lung Cancer Screening [phone] documented in this encounter [facility] 10-18-2023 Note HNO ID: [id number] Author: DORIAN KERN APRN.CNP Service: ? Author Type: Nurse Practitioner Type: Progress Notes Filed: 10/19/2023 09:43 Note Text: LUNG SCREENING ANNUAL VISIT PRIMARY CARE PHYSICIAN: Dewayne Chung MD PULMONARY PROVIDER: none Results will be communicated via letter or electronic record if applicable. Visit Delivery: In Person Patient Visit Type: established Current or Ex-smoker? [Current Exam Type: annual LDCT Number of Pack Years: 45.3 Current smoker (=0) The patient's smoking history is similar to prior year shared decision visit. The reason for the discrepancy is NA Chief Complaint: Established patient in lung cancer screening program here for annual follow-up. Impression / Recommendations Dianne Holly presents for annual lung cancer screening annual exam and nodule evaluation. Plan: Indeterminate pulmonary nodules: Previously identified nodules appear stable and no new nodules of concern were seen on the exam. Low dose CT Scan to be repeated in one year. Plan subject to change pending final radiology report and recommendations. Nature of the lung nodule(s) and the options for further evaluation discussed in detail with patient. Dianne Holly expressed understanding and is in agreement with plan. 2. Encounter for screening for malignant neoplasm of respiratory organs I have determined that the patient is eligible for continued low dose CT screening based on age, absence of signs or symptoms of lung cancer, smoking history and total pack years. The patient was counseled on the importance of adherence to annual LDCT lung cancer screening, impact of comorbidities and ability or willingness to undergo diagnosis and treatment. The patient understands and feels comfortable with it: Yes. 3. Nicotine Dependence The patient was counseled on the importance of smoking cessation if current smoker and, if appropriate, offered additional tobacco cessation counseling services - Smoking Cessation Counseling. SMOKING CESSATION COUNSELING Smoking cessation methods including Behavior Modification were discussed with the patient and assistance offered. The medical conditions adversely affected by cigarette use include:COPD, Emphysema, and Lung Cancer. Counseled on benefits of quitting smoking, recommended cessation or reduction to prevent development and/or progression of emphysema. The patient is currently not ready to quit. I personally spent 3 minutes in counseling. The time spent in smoking cessation counseling is exclusive of any other counseling during this visit. I spent a total of 30 minutes on the date of the service which included preparing to see the patient, [id number] patient care, completing clinical documentation, performing a medically appropriate examination, counseling and educating the patient/family/caregiver, ordering medications, tests, or procedures, communicating with other HCPs (not separately reported), independently interpreting results (not separately reported), communicating results to the patient/family/caregiver, and care coordination (not separately reported). Dorian Kern APRN.[facility] October 18, 2023 1:52 PM History of Present Illness: Dianne Holly is a 72 year old female who is presenting today for annual lung cancer screening LDCT and nodule surveillance/management. Patient has multiple nodules found on previous lung cancer screening LDCT. Last LDCT was performed on 08/20/2022 and was LUNG RADS Category 2. Previous potentially significant incidental findings on imaging: moderate CAC . Saw PCP and they did stress test. Patient is a current smoker with a 45.3 pack year history. Patient is currently still smoking 5-10 cigarettes daily. Patient will continue to be eligible for lung cancer screening until age 78. The patient does not have any symptoms or signs of lung cancer. Patient has SOB with their daily activity, since COVID in . No wheezing or dyspnea. Patient denies feeling of chest tightness/congestion in the chest. Patient does not have a new or concerning cough, and denies hemoptysis. Patient does have a chronic daily cough. Denies regular or recent fevers/chills. Patient does not have any significant unintentional weight loss. Patient denies having any respiratory infections or COVID-19 in the past few months. Uses Arnuity daily. Dicussed CT findings of mucus plugging and possible aspiration. pt admits to coughing during sleep. She takes omeprazole 20 mg daily in the morning. Modified Medical Research [place] Dyspnea Scale (MMRC) I only get breathless with strenous exercise 0 Last 12 Encounter Wt Readings: Date: Wt: 09/24/2023 120.7 kg (266 lb) 08/11/2023 120.7 kg (266 lb) 07/19/2023 121.2 kg (267 lb 3.2 oz) 05/02/2023 122.5 kg (2 (more content not included)... [facility] 10-18-2023 History of Present illness Narrative Images from the original note were not included. LUNG SCREENING ANNUAL VISIT PRIMARY CARE PHYSICIAN: Dewayne Chung MD PULMONARY PROVIDER: none Results will be communicated via letter or electronic record if applicable. Visit Delivery: In Person Patient Visit Type: established Current or Ex-smoker? [Current Exam Type: annual LDCT Number of Pack Years: 45.3 Current smoker (=0) The patient's smoking history is similar to prior year shared decision visit. The reason for the discrepancy is NA Chief Complaint: Established patient in lung cancer screening program here for annual follow-up. Impression / Recommendations Dianne Holly presents for annual lung cancer screening annual exam and nodule evaluation. Plan: Indeterminate pulmonary nodules: Previously identified nodules appear stable and no new nodules of concern were seen on the exam. Low dose CT Scan to be repeated in one year. Plan subject to change pending final radiology report and recommendations. Nature of the lung nodule(s) and the options for further evaluation discussed in detail with patient. Dianne Holly expressed understanding and is in agreement with plan. 2. Encounter for screening for malignant neoplasm of respiratory organs I have determined that the patient is eligible for continued low dose CT screening based on age, absence of signs or symptoms of lung cancer, smoking history and total pack years. The patient was counseled on the importance of adherence to annual LDCT lung cancer screening, impact of comorbidities and ability or willingness to undergo diagnosis and treatment. The patient understands and feels comfortable with it: Yes. 3. Nicotine Dependence The patient was counseled on the importance of smoking cessation if current smoker and, if appropriate, offered additional tobacco cessation counseling services - Smoking Cessation Counseling. SMOKING CESSATION COUNSELING Smoking cessation methods including Behavior Modification were discussed with the patient and assistance offered. The medical conditions adversely affected by cigarette use include:COPD, Emphysema, and Lung Cancer. Counseled on benefits of quitting smoking, recommended cessation or reduction to prevent development and/or progression of emphysema. The patient is currently not ready to quit. I personally spent 3 minutes in counseling. The time spent in smoking cessation counseling is exclusive of any other counseling during this visit. I spent a total of 30 minutes on the date of the service which included preparing to see the patient, [id number] patient care, completing clinical documentation, performing a medically appropriate examination, counseling and educating the patient/family/caregiver, ordering medications, tests, or procedures, communicating with other HCPs (not separately reported), independently interpreting results (not separately reported), communicating results to the patient/family/caregiver, and care coordination (not separately reported). Dorian Kern APRN.[facility] October 18, 2023 1:52 PM History of Present Illness: Dianne Holly is a 72 year old female who is presenting today for annual lung cancer screening LDCT and nodule surveillance/management. Patient has multiple nodules found on previous lung cancer screening LDCT. Last LDCT was performed on 08/20/2022 and was LUNG RADS Category 2. Previous potentially significant incidental findings on imaging: moderate CAC . Saw PCP and they did stress test. Patient is a current smoker with a 45.3 pack year history. Patient is currently still smoking 5-10 cigarettes daily. Patient will continue to be eligible for lung cancer screening until age 78. The patient does not have any symptoms or signs of lung cancer. Patient has SOB with their daily activity, since COVID in . No wheezing or dyspnea. Patient denies feeling of chest tightness/congestion in the chest. Patient does not have a new or concerning cough, and denies hemoptysis. Patient does have a chronic daily cough. Denies regular or recent fevers/chills. Patient does not have any significant unintentional weight loss. Patient denies having any respiratory infections or COVID-19 in the past few months. Uses Arnuity daily. Dicussed CT findings of mucus plugging and possible aspiration. pt admits to coughing during sleep. She takes omeprazole 20 mg daily in the morning. Modified Medical Research [place] Dyspnea Scale (MMRC) I only get breathless with strenous exercise 0 Last 12 Encounter Wt Readings: Date: Wt: 09/24/2023 120.7 kg (266 lb) 08/11/2023 120.7 kg (266 lb) 07/19/2023 121.2 kg (267 lb 3.2 oz) 05/02/2023 122.5 kg (270 lb) 03/26/2023 122 kg (269 lb) 02/05/2023 122 kg (269 lb) 11/27/2022 121.9 kg (268 lb 12.8 oz) 11/16/2022 119.3 kg (263 lb) 11/04/2022 120.2 kg (265 lb) 10/28/2022 118.8 kg (262 lb) 09/08/2022 119.7 kg (264 lb) 08/07/2022 119.4 kg (263 lb 3.2 oz) Social History Tobacco Use: .8 packs/day, for 50 years. Types: Cigarettes Past Medical History: PAST MEDICAL HISTORY 12/06/2018: Adenoma of left adrenal gland Comment: Seen [facility] ER CT 11/28/2018 was stable in size since CT done 11/2015: benign. 11/17/2007: ADRENAL NODULE 11/19/2006: Anxiety state No date: Arthritis No date: Benign neoplasm of colon 04/03/2015: BPPV (benign paroxysmal positional vertigo) 09/17/2015: Chronic left shoulder pain 06/18/2014: Class 3 severe obesity due to excess calories without serious comorbidity with body mass index (BMI) of 45.0 to 49.9 in adult ([facility]) 09/08/2022: Coronary artery calcification Comment: Moderate per chest CT 08/202201/15/2016: DDD (degenerative disc disease), lumbar No date: Delayed emergence from general anesthesia 06/03/2016: Diverticulitis of large intestine without perforation or abscess without bleeding 08/07/2023: Elevated blood sugar 08/07/2023: Elevated hemoglobin A1c 06/18/2014: Emphysema of lung ([facility]) 11/23/2017: Encounter for Medicare annual wellness exam Comment: Medicare Part B: 11/29/2016 last done: 08/11/2023 11/19/2006: Essential hypertension 09/08/2022: Family history of early CAD Comment: Brother at age 47 11/19/2006: Gastroesophageal reflux disease without esophagitis 11/19/2006: Generalized osteoarthrosis, unspecified site No date: Internal hemorrhoids 11/23/2017: Medicare annual wellness visit, initial Comment: Medicare Part B: 11/29/2016 last done: 11/16/2018 03/19/2008: Mixed hyperlipidemia 08/03/2022: Moderate obstructive sleep apnea Comment: Consult sleep med 07/202201/15/2016: Osteoarthritis of lumbar spine 11/19/2006: Osteoarthritis of multiple joints 01/16/2019: Overactive bladder 09/21/2016: Primary osteoarthritis of right hip 11/23/2017: Primary ovarian failure 11/23/2017: Recurrent major depressive disorder, in remission (HCC) 05/27/2010: Smoker 08/11/2023: Stage 3a chronic kidney disease (HCC) 10/01/2017: Status post right hip replacement 10/16/2014: Venous insufficiency (chronic) (peripheral) 06/14/2017: Vertigo 05/26/2021: Vitamin B12 deficiency Family Hx: FAMILY HISTORY Problem Relation Age of Onset Colon Cancer Mother Diabetes Mother rectal cancer/kidney failure Melanoma Father other (obese) Sister hypertension Colon Cancer Sister Breast Cancer Sister 55 triple negative Blood Disease Sister amyloidosis other (obese) Brother Coronary Artery Disease Brother 47 1st AMI Heart Attack Brother other (Liver Issues) Daughter Alcohol/Drug Daughter Surgical Hx: PAST SURGICAL HISTORY 2001: ARTHROSCOPY KNEE DIAGNOSTIC W/WO SYNOVIAL BX SPX Comment: Arthroscopy, knee right 06/23/2017: ARTHRP ACETBLR/PROX FEM PROSTC AGRFT/ALGRFT; Right Comment: Hip replacement, total No date: BREAST SURGERY HX 07/24/2021: COLONOSCOPY 06/16/2016: COLONOSCOPY & POLYPECTOMY Comment: repeat 5 years 04/01/2009: COLONOSCOPY W/BIOPSY SINGLE/MULTIPLE 06/22/2012: EGD TRANSORAL BIOPSY SINGLE/MULTIPLE Comment: [facility] Dr Marroquin No date: FRACTURE SURGERY No date: JOINT REPLACEMENT HX 1973: LIG/TRNSXJ FLP TUBE ABDL/VAG APPR UNI/BI Comment: Tubal ligation 1984: PAST SURGICAL HISTORY OF Comment: ovarian cyst 2006: PAST SURGICAL HISTORY OF Comment: right breast removed bonnie. tumor 05/2008: PAST SURGICAL HISTORY OF Comment: bilateral eye lid surgery 12/22/2006: REM LESIO TRUNK,ARM,LEG 1.1 -2.0CM Comment: Exc. right lower back skin lesion No date: SKIN BIOPSY HX 1988: TOTAL ABDOMINAL HYSTERECT W/WO RMVL TUBE OVARY Comment: Hysterectomy, EDWINA - ovaries remain No date: VAGINAL HYSTERECTOMY Allergies: ALLERGIES Allergen Reactions Flagyl [Metronidazo* Itching, Other: See Comments nausea/ throat swelling Ibuprofen Vomiting Hematemesis - [facility] 06/21/2012 Nickel Rash Can only wear gold earrings Review Of Systems: See HPI for ROS All of the remainder systems were reviewed and negative. PHYSICAL EXAMINATION: Wt 267 lb 6.7 oz (121.3kg) General appearance: well appearing, in no acute distress, and alert Skin: skin color, texture, turgor normal, no rashes or lesions Neck: Supple, no adenopathy; thyroid symmetric, normal size Respiratory: lungs clear to auscultation no wheezing or rhonchi Cardiovascular: Negative. RRR without murmur, gallop, or rubs. No ectopy Musculoskeletal: Extremities normal. No deformities, edema, or skin discoloration. Neuro: Oriented X 3 Data Review I have visually reviewed imaging and testing below CT imaging done today was reviewed and analyzed independently and compared to prior CT chest imaging by practitioner. All previously noted lung nodules are stable. Imaging Last CT/CTA Chest/Lungs CT LUNG SCREEN WO IVCON Exam End: 09/24/2023 12:28 PM (Final result) Narrative: * * *Final Report* * * DATE OF EXAM: Sep 24 2023 12:28PM [facility] 0562 - CT LUNG SCREEN WO IVCON / PROCEDURE REASON: multiple diagnoses * * * * Physician Interpretation * * * * EXAMINATION: CHEST CT WITHOUT CONTRAST (LOW-DOSE CT LUNG CANCER SCREENING PROTOCOL) CLINICAL HISTORY: Lung cancer LDCT screening ? absence of signs or symptoms of lung cancer. Technique: Spiral CT acquisition of the chest from the thoracic inlet to the upper abdomen without contrast. MQ: [id number]_6 Patient characteristics: * Hopb-bv-Uosob: 1950; Age at exam: 72 years * Gender: Female * Lung Disease: Asymptomatic (no signs or symptoms of lung disease) * Number of Pack Years: 40 * Current smoker (=0) or Number of Years since Quit: 0 * Ordering provider and NPI: DORIAN KERN [id number] * Interpreting radiologist and NPI: Jonah [id number] Exam acquisition parameters: * Exam Date: 09/24/2023 12:28 PM * Site: [facility] * * CT System Personal Clothing Laundry Aide: Siemens * CT System Model: Sensation * Tube Current-Time (mA-sec): 50 * Peak Voltage (kV): 120V * Scan Time (sec): 10.23 * Scan Volume (z-length, cm): -27.05 * Pitch: 0.75 * Slice Thickness (mm): 1.5 * CT Dose-Length Product: 136 mGy*cm * CT Dose Index: 3.88mGy * CT Dose Reduction Method: Automated exposure control(AEC) and iterative recon COMPARISON: CT 08/20/2022 RESULT: Are nodules present? Yes, 1-5 nodules Lung nodule comments: 2 mm left upper lobe nodule (57). 4 mm left fissural nodule (111). Stable opacity RIGHT upper lobe close to bronchial branch point series 5 image 72. Other findings: Degenerative changes of the thoracic spine. Increased areas of retained secretions/mucus impaction within bilateral lower lobe bronchi with some progression of LEFT lower lobe atelectasis, bronchial thickening, mild upper lobe predominant emphysema. Incidental coronary calcium as automatically processed and calculated using AI: Total Coronary Calcium Score = [100+] Agatston Units Percentile Rank (age and gender matched relative to reference population): [75th-100th] percentile* [* https://www.joy-nhlbi.org/calcium/ input.aspx] Localizer images: RIGHT total hip arthroplasty surgery Impression: IMPRESSION: LungRADS category: 2 LungRADS modifier: None LungRADS 0 reason: n/a Recommendations: Other actionable findings: Increased retained secretions/mucus impaction within lower lobe airways, mildly increased LEFT lower lobe atelectasis. The possibility of mild/intermittent aspiration is raised. ===== Reference: [employer]. Lung CT Screening Reporting and Data System (Lung-RADS). Available at: http://www.acr.org/Quality-Safety/R esources/LungRADS Crisis Therapist: PSCWiliam Transcribe Date/Time: Sep 27 2023 11:50A Dictated by : ALEXIS CLEMENTS MD This examination was interpreted and the report reviewed and electronically signed by: ALEXIS CLEMENTS MD on Sep 27 2023 12:00PM EST Last CT Chest - Impression Only No resulted procedures found. Last XR Chest - Impression Only XR CHEST 2V FRONTAL/LAT Exam End: 05/03/2023 12:06 PM (Final result) Impression: IMPRESSION: No acute significant radiographic abnormality. ... Pulmonary Function Testing: SPIROMETRY - BASELINE AND POST DILATOR ([id number]) - ordered on 06/26/22 No textual results for order. documented in this encounter [facility] 10-04-2023 Telephone encounter Note Patient out of medication-requesting this to be filled today. Patient has been identified by name and date of : Yes Patient phones for refill(s): Requested Prescriptions Pending Prescriptions Disp Refills solifenacin (VESICARE) 5 mg tablet 30 tablet 5 Sig: Take 1 tablet by mouth once daily. Date of last office visit in primary care: 08/11/2023 Date of next office visit in primary care: 02/10/2024 Please advise. Thank you. Genevieve Ricardo. [facility] 10-04-2023 Miscellaneous Notes Patient out of medication-requesting this to be filled today. Patient has been identified by name and date of : Yes Patient phones for refill(s): Requested Prescriptions Pending Prescriptions Disp Refills solifenacin (VESICARE) 5 mg tablet 30 tablet 5 Sig: Take 1 tablet by mouth once daily. Date of last office visit in primary care: 08/11/2023 Date of next office visit in primary care: 02/10/2024 Please advise. Thank you. Genevieve Ricardo. documented in this encounter [facility] 10-04-2023 Telephone encounter Note Faxed to [employer] as requested. ANNITA Pierre [facility] 10-04-2023 Miscellaneous Notes Faxed to [employer] as requested. ANNITA Pierre Please fax order to [employer] for traditional FFM instead of hybrid FFM Deonte Douglas APRN.HARMONIC ANALYST documented in this encounter [facility] 10-03-2023 Telephone encounter Note Please fax order to [employer] for traditional FFM instead of hybrid FFM Deonte Douglas APRN.HARMONIC ANALYST [facility] 09-24-2023 History of Present illness Narrative Radiology Service Progress Note PATIENT NAME: Dianne Holly DATE OF SERVICE: September 24, 2023 TIME: 1:57 PM PATIENT IDENTITY VERIFICATION COMPLETED USING TWO (2) IDENTIFIERS: Name and Date of confirmed by patient verbally. FALL SCREENING: Has the patient had 2 falls in the last year or 1 fall with injury or currently using an Ambulatory Assistive Device (Walker, Cane, Wheelchair, Crutches, etc.)? No PATIENT GENDER DATA: Female. status: : No status: NO. PATIENT RELEVANT IMPLANT DATA REVIEWED: Yes PATIENT PRESENTS WITH AN IMPLANTABLE OR ATTACHED HEEL LINING PASTER: No RADIOLOGY DEPARTMENT: CT; Exam(s) Completed: Lung Screening PERIPHERAL IV DATA: Not applicable SIGNED BY: RT Iron(R) September 24, 2023 1:57 PM documented in this encounter [facility] 09-24-2023 Note HNO ID: [id number] Author: NEGIN ALEX RT(R) Service: ? Author Type: Special Diet Cook Type: Progress Notes Filed: 09/24/2023 13:58 Note Text: Radiology Service Progress Note PATIENT NAME: Dianne Holly DATE OF SERVICE: September 24, 2023 TIME: 1:57 PM PATIENT IDENTITY VERIFICATION COMPLETED USING TWO (2) IDENTIFIERS: Name and Date of confirmed by patient verbally. FALL SCREENING: Has the patient had 2 falls in the last year or 1 fall with injury or currently using an Ambulatory Assistive Device (Walker, Cane, Wheelchair, Crutches, etc.)? No PATIENT GENDER DATA: Female. status: : No status: NO. PATIENT RELEVANT IMPLANT DATA REVIEWED: Yes PATIENT PRESENTS WITH AN IMPLANTABLE OR ATTACHED HEEL LINING PASTER: No RADIOLOGY DEPARTMENT: CT; Exam(s) Completed: Lung Screening PERIPHERAL IV DATA: Not applicable SIGNED BY: RT Iron(Fraknlin) September 24, 2023 1:57 PM [facility] 09-24-2023 Note HNO ID: [id number] Author: DEONTE DOUGLAS APRN.HARMONIC ANALYST Service: ? Author Type: Nurse Practitioner Type: Progress Notes Filed: 10/03/2023 10:53 Note Text: [facility] Follow up/ Established patient visit Date of last visit : 07/19/2023 The following Impression/Plan was copied and pasted from the patient's last [facility] visit on 07/19/23: IMPRESSION: Mónica (obstructive sleep apnea) (primary encounter diagnosis) Sleep related hypoxia Dianne Holly is a 72 year old female with PMH of at least moderate MÓNICA, sleep related hypoxia, obesity, HTN, HLD, emphysema, smoker, GERD, diverticulitis, MDD, anxiety. She is trying to use PAP more, she is reporting benefits. Aim for using it all night, every night. PLAN: - Continue Auto CPAP at 13-20 cmH2O with 1.5 LPM O2 - Remember to clean your mask and equipment regularly, as directed. - You should be eligible for new supplies approximately every 3-6 months, depending on your insurance coverage. Contact your Durable Medical Equipment (DME) company for new supplies as needed. - Follow up in 3 months with [facility]. - encouraged smoking cessation, smokes up to 1/2 ppd Deonte Douglas APRN.HARMONIC ANALYST Here for follow up for MÓNICA Can't tolerate PAP--causing increased phlegm that wakes her up. Can be in back of throat and in her chest. Can have mucus in her mask when she wakes up. Not using O2 at night unless she has the bleed in with PAP, 1 LPM. SLEEP APNEA Sleep apnea type : MÓNICA, Most Recent Apnea-Hypopnea Index (AHI): 26 on HSAT in 06/2022 Treatment : PAP therapy DME: [employer] PAP History: Current PAP settin-20 cm H2O. Reviewed objective PAP compliance data: Mask type: hybrid full face mask PATIENT-ENTERED QUESTIONNAIRE SLEEP SCORES 11/09/2016 06/15/2022 PHQ-9 Score 9 9 09/21/2016 11/09/2016 11/09/2016 PROMIS Global Health - (T-Scores - the mean of general population = 50. Five points is a clinically meaningful difference.) Physical T-Score 32.4 32.4 Mental T-Score 38.8 36.3 36.3 ALLERGIES Allergen Reactions Flagyl [Metronidazo* Itching, Other: See Comments nausea/ throat swelling Ibuprofen Vomiting Hematemesis - [facility] 06/21/2012 Nickel Rash Can only wear gold earrings CURRENT MEDICATIONS: CPAP/BIPAP/OTHER autoCPAP 13-20 cmH2O with 1.5 LPM O2 bleed in DME [employer] verapamil SR (CALAN SR) 180 mg CR tablet Take 1.5 tablets by mouth once daily. albuterol HFA (PROVENTIL HFA, VENTOLIN HFA) 90 mcg/actuation inhaler Inhale 2 Puffs as instructed every 6 hours as needed. buPROPion SR (WELLBUTRIN SR) 150 mg 12 hr tablet Take 1 tablet by mouth once daily. cyanocobalamin (VITAMIN B-12) 1,000 mcg tab Take 1 tablet by mouth once daily. fluticasone furoate (ARNUITY ELLIPTA) 100 mcg/actuation inhaler Inhale 1 Puff as instructed once daily. Do a quick inhalation prior to brushing teeth. Then brush teeth, rinse, gargle and spit. lisinopril-hydroCHLOROthiazide (ZESTORETIC) 20-12.5 mg per tablet Take 2 tablets by mouth once daily. omeprazole (PRILOSEC) 20 mg capsule Take 1 capsule by mouth once daily. pravastatin (PRAVACHOL) 40 mg tablet Take 1 tablet by mouth daily at bedtime. sertraline (ZOLOFT) 100 mg tablet Take 1.5 tablets by mouth every evening. triamcinolone acetonide (KENALOG) 0.1 % cream Apply 1 application to affected area three times a day. Apply sparingly to area for rash/itching. solifenacin (VESICARE) 5 mg tablet Take 1 tablet by mouth once daily. ondansetron orally disintegrating (ZOFRAN ODT) 4 mg disintegrating tablet Take 1 tablet by mouth every 8 hours as needed. MEDICAL SUPPLY BEDSIDE COMMODE. dx: right total hip replacement. z96.641 COMPOUNDED PRESCRIPTION Bedside Commode Dx: right total hip replacement Z96.641 PHYSICAL EXAMINATION: Vital Signs: BP 117/77 Pulse 68 Resp 18 Wt 120.7 kg (266 lb) SpO2 95% BMI 47.12 kg/m? PHYSICAL EXAM: General appearance: pleasant, NAD Mental status: alert and oriented, able to provide own history Constitutional: obese Skin: No visible rashes on exposed skin Neuro: No focal deficits observed, no tremors IMPRESSION: Mónica (obstructive sleep apnea) (primary encounter diagnosis) Nocturnal hypoxia Chronic obstructive pulmonary disease, unspecified copd type (hcc) Moderate smoker (20 or less per day) Dianne Holly is a 72 year old female with PMH of at least moderate MÓNICA, nocturnal hypoxia, COPD, smoker. She wants to use her autoCPAP 13-20 cmH2O with O2 bleed in 1 LPM but she notes excessive phlegm when she uses PAP. PLAN: She would like to try a traditional FFM instead of the hybrid FFM, we'll check with [employer], order written Will refer to Pulm for their opinion on COPD playing a role in her not being able to tolerate her autoCPAP. She isn't getting supplemental O2 at night when not using PAP. Deotne Carmichael (more content not included)... [facility] 09-24-2023 History of Present illness Narrative Images from the original note were not included. [facility] Follow up/ Established patient visit Date of last visit : 07/19/2023 The following Impression/Plan was copied and pasted from the patient's last [facility] Disorders Center visit on 07/19/23: IMPRESSION: Mónica (obstructive sleep apnea) (primary encounter diagnosis) Sleep related hypoxia Dianne Holly is a 72 year old female with PMH of at least moderate MÓNICA, sleep related hypoxia, obesity, HTN, HLD, emphysema, smoker, GERD, diverticulitis, MDD, anxiety. She is trying to use PAP more, she is reporting benefits. Aim for using it all night, every night. PLAN: - Continue Auto CPAP at 13-20 cmH2O with 1.5 LPM O2 - Remember to clean your mask and equipment regularly, as directed. - You should be eligible for new supplies approximately every 3-6 months, depending on your insurance coverage. Contact your Durable Medical Equipment (DME) company for new supplies as needed. - Follow up in 3 months with [facility]. - encouraged smoking cessation, smokes up to 1/2 ppd Deonte Douglas, DOPER.HARMONIC ANALYST Here for follow up for MÓNICA Can't tolerate PAP--causing increased phlegm that wakes her up. Can be in back of throat and in her chest. Can have mucus in her mask when she wakes up. Not using O2 at night unless she has the bleed in with PAP, 1 LPM. SLEEP APNEA Sleep apnea type : MÓNICA, Most Recent Apnea-Hypopnea Index (AHI): 26 on HSAT in 06/2022 Treatment : PAP therapy DME: [employer] PAP History: Current PAP settin-20 cm H2O. Reviewed objective PAP compliance data: Mask type: hybrid full face mask ---- PATIENT-ENTERED QUESTIONNAIRE SLEEP SCORES 11/09/2016 06/15/2022 PHQ-9 Score 9 9 09/21/2016 11/09/2016 11/09/2016 PROMIS Global Health - (T-Scores - the mean of general population = 50. Five points is a clinically meaningful difference.) Physical T-Score 32.4 32.4 Mental T-Score 38.8 36.3 36.3 ALLERGIES Allergen Reactions Flagyl [Metronidazo* Itching, Other: See Comments nausea/ throat swelling Ibuprofen Vomiting Hematemesis - [facility] 06/21/2012 Nickel Rash Can only wear gold earrings CURRENT MEDICATIONS: CPAP/BIPAP/OTHER autoCPAP 13-20 cmH2O with 1.5 LPM O2 bleed in DME [employer] verapamil SR (CALAN SR) 180 mg CR tablet Take 1.5 tablets by mouth once daily. albuterol HFA (PROVENTIL HFA, VENTOLIN HFA) 90 mcg/actuation inhaler Inhale 2 Puffs as instructed every 6 hours as needed. buPROPion SR (WELLBUTRIN SR) 150 mg 12 hr tablet Take 1 tablet by mouth once daily. cyanocobalamin (VITAMIN B-12) 1,000 mcg tab Take 1 tablet by mouth once daily. fluticasone furoate (ARNUITY ELLIPTA) 100 mcg/actuation inhaler Inhale 1 Puff as instructed once daily. Do a quick inhalation prior to brushing teeth. Then brush teeth, rinse, gargle and spit. lisinopril-hydroCHLOROthiazide (ZESTORETIC) 20-12.5 mg per tablet Take 2 tablets by mouth once daily. omeprazole (PRILOSEC) 20 mg capsule Take 1 capsule by mouth once daily. pravastatin (PRAVACHOL) 40 mg tablet Take 1 tablet by mouth daily at bedtime. sertraline (ZOLOFT) 100 mg tablet Take 1.5 tablets by mouth every evening. triamcinolone acetonide (KENALOG) 0.1 % cream Apply 1 application to affected area three times a day. Apply sparingly to area for rash/itching. solifenacin (VESICARE) 5 mg tablet Take 1 tablet by mouth once daily. ondansetron orally disintegrating (ZOFRAN ODT) 4 mg disintegrating tablet Take 1 tablet by mouth every 8 hours as needed. MEDICAL SUPPLY BEDSIDE COMMODE. dx: right total hip replacement. z96.641 COMPOUNDED PRESCRIPTION Bedside Commode Dx: right total hip replacement Z96.641 PHYSICAL EXAMINATION: Vital Signs: BP 117/77 Pulse 68 Resp 18 Wt 120.7 kg (266 lb) SpO2 95% BMI 47.12 kg/m PHYSICAL EXAM: General appearance: pleasant, NAD Mental status: alert and oriented, able to provide own history Constitutional: obese Skin: No visible rashes on exposed skin Neuro: No focal deficits observed, no tremors IMPRESSION: Mónica (obstructive sleep apnea) (primary encounter diagnosis) Nocturnal hypoxia Chronic obstructive pulmonary disease, unspecified copd type (hcc) Moderate smoker (20 or less per day) Dianne Holly is a 72 year old female with PMH of at least moderate MÓNICA, nocturnal hypoxia, COPD, smoker. She wants to use her autoCPAP 13-20 cmH2O with O2 bleed in 1 LPM but she notes excessive phlegm when she uses PAP. PLAN: She would like to try a traditional FFM instead of the hybrid FFM, we'll check with [employer], order written Will refer to Pulm for their opinion on COPD playing a role in her not being able to tolerate her autoCPAP. She isn't getting supplemental O2 at night when not using PAP. Deonte Douglas APRN.STEPHANI documented in this encounter [facility] 09-17-2023 Telephone encounter Note Images from the original note were not included. [facility] 09-17-2023 Miscellaneous Notes Images from the original note were not included. documented in this encounter [facility] 08-11-2023 Instructions Dewayne Chung MD - 08/11/2023 2:42 PM EDT Consider getting the RSV vaccine from a local pharmacy in late September or early October. Please get labs done on or after 01/28/2024 prior to your next visit. Screening schedule The following prevention plan is recommended: BP Controlled (<130/80) due on 08/13/2021 Mammogram Screening due on 02/11/2022 Advance Directive Discussion due on 03/01/2023 WHAT YOU CAN DO TO PREVENT FALLS Many falls can be prevented. By making some changes, you can lower your chances of falling. Four things YOU can do to prevent falls for you* and your caregiver 1. Begin a regular exercise program Exercise is one of the most important ways to lower your chances of falling. It makes you stronger and helps you feel better. Exercises that improve balance and coordination (like Edmundo Chi) are the most helpful. Lack of exercise leads to weakness and increases your chances of falling. Ask your doctor or health care provider about the best type of exercise program for you. 2. Have your health care provider review your medicines Have your doctor or pharmacist review all the medicines you take, even [id number] medicines. As you get older, the way medicines work in your body can change. Some medicines, or combinations of medicines, can make you sleepy or dizzy and can cause you to fall. 3. Have your vision checked Have your eyes checked by an eye doctor at least once a year. You may be wearing the wrong glasses or have a condition like glaucoma or cataracts that limits your vision. Poor vision can increase your chances of falling. 4. Make your home safer About half of all falls happen at home. To make your home safer: Remove things you can trip over (like papers, books, clothes, and shoes) from stairs and places where you walk. Remove small throw rugs or use double-sided tape to keep the rugs from slipping. Keep items you use often in cabinets you can reach easily without using a step stool. Have grab bars put in next to your toilet and in the tub or shower. Use non-slip mats in the bathtub and on shower floors. Improve the lighting in your home. As you get older, you need brighter lights to see well. Hang light-weight curtains or shades to reduce glare. Have handrails and lights put in on all staircases. Wear shoes both inside and outside the house. Avoid going barefoot or wearing slippers. For more information, contact: Centers for Disease Control and Prevention www.cdc.gov/injury * This information may not apply if you have certain medical conditions. BONE MINERAL DENSITY PATIENT INSTRUCTIONS ====== Bone mineral density testing measures the amount [...] usual activities immediately. documented in this encounter [facility] 08-11-2023 Note HNO ID: [id number] Author: DEWAYNE CHUNG MD Service: ? Author Type: Physician Type: Progress Notes Filed: 08/12/2023 14:09 Note Text: Dianne Holly is a 72 year old female here for a Medicare wellness visit. Medicare Health Risk Assessment General Health Fair Exercise: Minutes/Day 10 min Exercise: Days/Week 3 days Alcohol: Daily Use Never Alcohol: Drinks/Day Patient does not drink Alcohol: 6 or more drinks Never Feel off balance No Concerns: Teeth/Dentures No Concerns: Sexual function No Troubled by feelings None of the above Frequency: Eating healthy diet ADLs requiring help None of the above Safety precautions in home/vehicle No Smoke, vape, chews tobacco Yes, and I might quit Difficulty hearing Yes Difficulty seeing No Current Providers Specialists: I have reviewed specialist-related care of the patient in the medical record. Current care team: Patient Care Team: Dewayne Chung MD as PCP - General (Family Medicine) [facility] Medical/Family history review Reviewed and updated problem list, medical/surgical/family/social history, medications, and allergies. Opioid use review Opioid Medications (last 90 days) No data to display Anxiety/Depression screening PHQ-2 Score: 0 (Lower risk for depression) Recommendation: no further intervention at this time Cognitive screening Score: 5 Cognitive screening reviewed and No further action needed (score 3-5). Functional Observation Was the patient's Timed Up AND Go test unsteady or ? 12 seconds? No Advance Care Planning Patient did not wish or was not able to name a surrogate decision maker or provide an advance care plan Measurements BP 120/80 Pulse 70 Resp 18 Ht 5' 3 (1.60m) Wt 266 lb (120.7kg) BMI 47.13 kg/(m2). Vision Screening: Follows with optometry/ophthalmology Assessment/Plan Medicare annual wellness visit, subsequent (Z00.00) - Counseled on healthy diet and regular exercise - Fall avoidance information provided - Personalized prevention plan provided See Below Chief Complaint Patient presents with: Medicare Wellness Exam HPI Dianne Holly is a 72 year old female who presents here today for Chronic Medical Conditions. and Medicare Annual Visit. Patient with hx of HTN, hyperlipidemia, COPD, Depression, GERD, obesity, smoker, BPPV, OA, DDD, OAB, b12 def, and those as below. Patient seeing Neur for MÓNICA last visit 06/2023 Has been doing well. Has some irritation along her right thumb. Past medical history, appointments, medications, allergies reviewed. Previous Medical History PAST MEDICAL HISTORY Diagnosis Date Adenoma of left adrenal gland 12/06/2018 Seen [facility] ER CT 11/28/2018 was stable in size since CT done 11/2015: benign. ADRENAL NODULE 11/17/2007 Anxiety state 11/19/2006 Arthritis Benign neoplasm of colon BPPV (benign paroxysmal positional vertigo) 04/03/2015 Chronic left shoulder pain 09/17/2015 Class 3 severe obesity due to excess calories without serious comorbidity with body mass index (BMI) of 45.0 to 49.9 in adult ([facility]) 06/18/2014 Coronary artery calcification 09/08/[address] 08/2022 DDD (degenerative disc disease), lumbar 01/15/2016 Delayed emergence from general anesthesia Diverticulitis of large intestine without perforation or abscess without bleeding 06/03/2016 Elevated blood sugar 08/07/2023 Emphysema of lung ([facility]) 06/18/2014 Essential hypertension 11/19/2006 Family history of [...] 11/23/2017 Recurrent major depressive disorder, in remission ([facility]) 11/23/2017 Smoker 05/27/2010 Status post right hip [...] SINGLE/MULTIPLE 04/01/2009 EGD TRANSORAL BIOPSY SINGLE/MULTIPLE 06/22/[address] [facility] [address] Marroquin FRACTURE SURGERY JOINT REPLACEMENT HX LIG/TRNSXJ FLP TUBE ABDL/VAG APPR UNI/BI 1973 Tubal ligation PAST SURGICAL HISTORY OF 1984 ovarian cyst (more content not included)... [facility] 08-11-2023 History of Present illness Narrative Images from the original note were not included. Dianne Holly is a 72 year old female here for a Medicare wellness visit. Medicare Health Risk Assessment General Health Fair Exercise: Minutes/Day 10 min Exercise: Days/Week 3 days Alcohol: Daily Use Never Alcohol: Drinks/Day Patient does not drink Alcohol: 6 or more drinks Never Feel off balance No Concerns: Teeth/Dentures No Concerns: Sexual function No Troubled by feelings None of the above Frequency: Eating healthy diet ADLs requiring help None of the above Safety precautions in home/vehicle No Smoke, vape, chews tobacco Yes, and I might quit Difficulty hearing Yes Difficulty seeing No Current Providers Specialists: I have reviewed specialist-related care of the patient in the medical record. Current care team: Patient Care Team: Dewayne Chung MD as PCP - General (Family Medicine) [facility] Medical/Family history review Reviewed and updated problem list, medical/surgical/family/social history, medications, and allergies. Opioid use review Opioid Medications (last 90 days) No data to display Anxiety/Depression screening PHQ-2 Score: 0 (Lower risk for depression) Recommendation: no further intervention at this time Cognitive screening Score: 5 Cognitive screening reviewed and No further action needed (score 3-5). Functional Observation Was the patient's Timed Up & Go test unsteady or ? 12 seconds? No Advance Care Planning Patient did not wish or was not able to name a surrogate decision maker or provide an advance care plan Measurements BP 120/80 Pulse 70 Resp 18 Ht 5' 3 (1.60m) Wt 266 lb (120.7kg) BMI 47.13 kg/(m^2). Vision Screening: Follows with optometry/ophthalmology Assessment/Plan Medicare annual wellness visit, subsequent (Z00.00) - Counseled on healthy diet and regular exercise - Fall avoidance information provided - Personalized prevention plan provided See Below Chief Complaint Patient presents with: Medicare Wellness Exam HPI Dianne Holly is a 72 year old female who presents here today for Chronic Medical Conditions. and Medicare Annual Visit. Patient with hx of HTN, hyperlipidemia, COPD, Depression, GERD, obesity, smoker, BPPV, OA, DDD, OAB, b12 def, and those as below. Patient seeing Neur for MÓNICA last visit 06/2023 Has been doing well. Has some irritation along her right thumb. Past medical history, appointments, medications, allergies reviewed. Previous Medical History PAST MEDICAL HISTORY Diagnosis Date Adenoma of left adrenal gland 12/06/2018 Seen [facility] ER CT 11/28/2018 was stable in size since CT done 11/2015: benign. ADRENAL NODULE 11/17/2007 Anxiety state 11/19/2006 Arthritis Benign neoplasm of colon BPPV (benign paroxysmal positional vertigo) 04/03/2015 Chronic left shoulder pain 09/17/2015 Class 3 severe obesity due to excess calories without serious comorbidity with body mass index (BMI) of 45.0 to 49.9 in adult ([facility]) 06/18/2014 Coronary artery calcification 09/08/[address] 08/2022 DDD (degenerative disc disease), lumbar 01/15/2016 Delayed emergence from general anesthesia Diverticulitis of large intestine without perforation or abscess without bleeding 06/03/2016 Elevated blood sugar 08/07/2023 Emphysema of lung ([facility]) 06/18/2014 Essential hypertension 11/19/2006 Family history of [...] SINGLE/MULTIPLE 04/01/2009 EGD TRANSORAL BIOPSY SINGLE/MULTIPLE 06/22/[address] [facility] [address] Marroquin FRACTURE SURGERY JOINT REPLACEMENT [...] nausea/ throat swelling Ibuprofen Vomiting Hematemesis - [facility] 06/21/2012 Nickel Rash Can only wear gold earrings Current Medications Current Outpatient Medications on File Prior to Visit Medication Sig benzonatate (TESSALON PERLES) 100 mg capsule Take 2 capsules by mouth three times a day as needed. (Patient not taking: Reported on 07/19/2023) CPAP/BIPAP/OTHER autoCPAP 13-20 cmH2O with 1.5 LPM O2 bleed in DME [employer] verapamil SR (CALAN SR) 180 mg CR tablet Take 1.5 tablets by mouth once daily. albuterol HFA (PROVENTIL HFA, VENTOLIN HFA) 90 mcg/actuation inhaler Inhale 2 Puffs as instructed every 6 hours as needed. buPROPion SR (WELLBUTRIN SR) 150 mg 12 hr tablet Take 1 tablet by mouth once daily. cyanocobalamin (VITAMIN B-12) 1,000 mcg tab Take 1 tablet by mouth once daily. fluticasone furoate (ARNUITY ELLIPTA) 100 mcg/actuation inhaler Inhale 1 Puff as instructed once daily. Do a quick inhalation prior to brushing teeth. Then brush teeth, rinse, gargle and spit. lisinopril-hydroCHLOROthiazide (ZESTORETIC) 20-12.5 mg per tablet Take 2 tablets by mouth once daily. omeprazole (PRILOSEC) 20 mg capsule Take 1 capsule by mouth once daily. pravastatin (PRAVACHOL) 40 mg tablet Take 1 tablet by mouth daily at bedtime. sertraline (ZOLOFT) 100 mg tablet Take 1.5 tablets by mouth every evening. triamcinolone acetonide (KENALOG) 0.1 % cream Apply 1 application to affected area three times a day. Apply sparingly to area for rash/itching. solifenacin (VESICARE) 5 mg tablet Take 1 tablet by mouth once daily. ondansetron orally disintegrating (ZOFRAN ODT) 4 mg disintegrating tablet Take 1 tablet by mouth every 8 hours as needed. MEDICAL SUPPLY BEDSIDE COMMODE. [...] No weight loss, malaise or fevers HEENT: Negative for frequent or significant headaches, No changes in hearing or vision, no nose bleeds or other nasal problems NECK: Negative for lumps, goiter, pain and significant neck swelling RESPIRATORY: Negative for cough, hemoptysis. Has some wheezing and/or shortness of breath at times. May clifton her rescue inhale once a day of less. No nocturnal SOB CARDIOVASCULAR: Negative for chest pain, leg swelling, hypertension, CHF or palpitations GI: No nausea, vomiting, or diarrhea, No frequent heartburn or reflux symptoms, and no blood : No history of dysuria, frequency or blood MUSCULOSKELETAL: on an occasion has some neck pain. SKIN: Negative for lesions, rash, and itching. Has some redness on the side of her thumb nail and has been tender. PSYCH: Negative for sleep disturbance, mood disorder and recent psychosocial stressors HEMATOLOGY/LYMPHOLOGY: Negative for prolonged bleeding, bruising easily or swollen nodes ENDOCRINE: Negative for cold or heat intolerance, polyuria, polydipsia and goiter NEURO: No history of headaches, syncope, paralysis, seizures or tremors EXAM: BP 120/80 (BP Site: Right Arm, BP Position: Sitting, BP Cuff Size: Large Adult) Pulse 70 Resp 18 Ht 160 cm (5' 3) Wt 120.7 kg (266 lb) BMI 47.12 kg/m Last 5 Encounter Wt Readings: Date: Wt: 08/11/2023 120.7 kg (266 lb) 07/19/2023 121.2 kg (267 lb 3.2 oz) 05/02/2023 122.5 kg (270 lb) 03/26/2023 122 kg (269 lb) 02/05/2023 122 kg (269 lb) General Appearance: Well appearing, alert, in no acute distress, well-hydrated, well nourished. and Morbidly obese. Skin: Skin color, texture, turgor normal, no suspicious rashes or lesions. Has erythema and discomfort to palpation along the lateral edge of the right thumb nail Head: Normocephalic, no masses, lesions, tenderness or abnormalities. Eyes: Anicteric sclera. Pupils are equally round and reactive to light. Extraocular movements are intact. . Ears: External ears, TM's normal, canals clear. Nose/Sinuses: Nares normal, septum midline, mucosa normal, no drainage or sinus tenderness. Oropharynx: Lips, mucosa, and tongue normal, teeth and gums normal, oropharynx normal. Neck: Supple, no adenopathy; thyroid symmetric, normal size, no bruits. Lungs: Lungs clear to auscultation. No wheezing, rhonchi, rales.. Heart: RRR without murmur, gallop, or rubs. No ectopy. Abdomen: Normal abdominal exam, Abdomen soft, non-tender. Bowel sounds normal. No masses, organomegaly. Extremities: No deformities, edema, skin discoloration, clubbing or cyanosis. Good capillary refill. . Musculoskeletal: Muscular strength intact, No joint swelling, deformity, or tenderness. Peripheral Pulses: Normal. Neurologic: Gait normal. Reflexes normal and symmetric. Sensation to light touch and crainal nerves 2-12 intact.. Health Maintenance List Alpha-1 Antitrypsin Deficiency Screening Never done RSV Vaccine(1 - 1-dose 60+ series) Never done Mammogram Screening due on 02/11/2022 Covid-19 Vaccine(3 - 2022- season) due on 10/30/2022 Advance Directive Discussion due on 03/01/2023 Shingrix Vaccine(2 of 2) due on 08/11/2023 Lung Cancer Screening due on 08/21/2023 Annual PCP Team Chronic Disease Visit due on 11/05/2023 BP Controlled (<130/80) due on 07/18/2024 Colorectal Cancer Screening due on 07/24/2024 LDL Cholesterol due on 08/09/2024 Diabetes Screening due on 08/09/2026 Lipid Screening due on 08/09/2028 DTaP,Tdap,Td Vaccine(3 - Td or Tdap) due on 07/04/2032 Bone Density Screening Completed Spirometry Completed Influenza Vaccine Completed Hepatitis C Screening Completed Pneumococcal Vaccine: 65+ Completed Data reviewed Latest Ref Rn 06/16/2022 08/10/2023 WBC 3.70 - 11.00 k/uL 8.22 8.54 RBC 3.90 - 5.20 m/uL 4.96 5.19 Hemoglobin 11.5 - 15.5 g/dL 14.5 15.2 Hematocrit 36.0 - 46.0 % 46.3 (H) 47.6 (H) MCV 80.0 - 100.0 fL 93.3 91.7 MCH 26.0 - 34.0 pg 29.2 29.3 MCHC 30.5 - 36.0 g/dL 31.3 31.9 RDW-CV 11.5 - 15.0 % 14.4 15.0 Platelet Count 150 - 400 k/uL 293 292 MPV 9.0 - 12.7 fL 10.7 10.2 Neut% % 63.2 64.3 Abs Neut (ANC) 1.45 - 7.50 k/uL 5.19 5.49 Lymph% % 24.7 23.5 Abs Lymph 1.00 - 4.00 k/uL 2.03 2.01 [place]% % 8.6 8.8 Abs [place] <0.87 k/uL 0.71 0.75 Eosin% % 2.4 2.1 Abs Eosin <0.46 k/uL 0.20 0.18 Baso% % 0.9 0.7 Abs Baso <0.11 k/uL 0.07 0.06 Immature Gran % % 0.2 0.6 IMMATURE GRANS (ABS) <0.10 k/uL <0.03 0.05 NRBC /100 WBC 0.0 0.0 Absolute nRBC <0.01 k/uL <0.01 <0.01 DTYPE Auto Auto Color Yellow Yellow Yellow Clarity Clear Clear Clear Glucose, Urine Negative Negative Negative Bilirubin, Urine Negative Negative Negative Ketones, Urine Negative Negative Negative Specific [place], Ur 1.005 - 1.030 1.021 1.011 Hemoglobin/Blood,Ur Negative Negative Negative pH, Urine <8.5 6.5 7.0 Protein, Urine Negative Trace Negative Urobilinogen 0.2-1.0 EU/dL Negative 0.2 EU/dL Nitrites Negative Negative Negative Leukest Negative Negative 1+ ! WBC, Urine 0-5 /HPF 0-5 /HPF 0-5 /HPF RBC, Urine 0-2 /HPF 0-3 /HPF 0-2 /HPF Bacteria Negative /HPF Negative Epithelial Cells /HPF Few None Seen Hyaline Cast 0 /LPF 0 /LPF Protein, Total 6.3 - 8.0 g/dL 6.9 7.3 Albumin 3.9 - 4.9 g/dL 4.3 4.5 Calcium 8.5 - 10.2 mg/dL 9.9 10.2 Bilirubin, Total 0.2 - 1.3 mg/dL 0.6 0.7 Alkaline Phosphatase 34 - 123 U/L 71 73 AST 13 - 35 U/L 15 21 ALT 7 - 38 U/L 17 25 Glucose 74 - 99 mg/dL 84 87 BUN 7 - 21 mg/dL 28 (H) 24 (H) Creatinine 0.58 - 0.96 mg/dL 1.13 (H) 1.21 (H) Sodium 136 - 144 mmol/L 140 140 Potassium 3.7 - 5.1 mmol/L 4.5 4.3 Chloride 98 - 107 mmol/L 103 100 CO2 22 - 30 mmol/L 25 25 Anion Gap 8 - 15 mmol/L 12 15 eGFR >=60 mL/min/1.73m 52 (L) 48 (L) Cholesterol, Total <200 mg/dL 146 Triglyceride <150 mg/dL 106 HDL Cholesterol >39 mg/dL 44 Non HDL Cholesterol <130 mg/dL 102 Fasting Time hrs 13 VLDL Cholesterol <30 mg/dL 21 TC:HDL Ratio <5.10 3.32 LDL Cholesterol <100 mg/dL 81 LDL:HDL Ratio <2.54 1.84 Total Cholesterol, Nonfasting <200 mg/dL 163 Triglycerides, Nonfasting <150 mg/dL 171 (H) HDL Cholesterol, Nonfasting >39 mg/dL 45 LDL Cholesterol, Nonfasting <100 mg/dL 84 Non HDL Cholesterol, Nonfasting <130 mg/dL 118 VLDL Cholesterol, Nonfasting <30 mg/dL 34 (H) Total Chol/HDL Ratio, Nonfasting <5.10 mg/dL 3.62 LDL/HDL Ratio, Nonfasting <2.54 mg/dL 1.87 Hemoglobin A1C 4.3 - 5.6 % 5.8 (H) Estimated Average Glucose mg/dL 120 Vitamin B12 232 - 1,245 pg/mL 450 726 Magnesium 1.7 - 2.3 mg/dL 2.1 2.1 TSH 0.270 - 4.200 mIU/L 1.400 A/P ASSESSMENT/PLAN: 1. Encounter for Medicare annual wellness exam - ICD9: V70.0, ICD10: Z00.00 (primary diagnosis) - Counseled on healthy diet and regular exercise - Discussed need and benefit for weight loss. BMI 47.12 kg/(m^2) - Patient was counseled [id number] by myself (the billing provider) for the following immunizations and vaccine components, including side effects: Pneumococcal . Patient consents for immunization and understands risks and benefits. A VIS sheet on each immunization was given to the patient. - Follow up for annual exam in one year - advised on shingrix and RSV 2. Essential hypertension - ICD9: 401.9, ICD10: I10 - Controlled - Continue current medications - Recommend home blood pressure monitoring, to bring results to next visit - Encouraged sodium restriction, DASH or Mediterranean diet - Recommend regular aerobic exercise - Discussed need for and benefit of weight loss. BMI 47.12 kg/(m^2) 3. Mixed hyperlipidemia - ICD9: 272.2, ICD10: E78.2 - Controlled but would like to se LDL below 70 - Continue current medications - Counseled on healthy diet and regular exercise - Discussed need for and benefit of weight loss. BMI 47.12 kg/(m^2) 4. Gastroesophageal reflux disease without esophagitis - ICD9: 530.81, ICD10: K21.9 - Continue treatment with Prilosec 20 mg QD 5. Coronary artery calcification - ICD9: 414.00, 414.4, ICD10: I25.10, I25.84 - clinically stable no changes. 6. Pulmonary emphysema, unspecified emphysema type (HCC) - ICD9: 492.8, ICD10: J43.9 - stable with TX. No changes. 7. Anxiety state - ICD9: 300.00, ICD10: F41.1 - controlled with Zoloft. 8. Recurrent major depressive disorder, in remission (HCC) - ICD9: 296.35, ICD10: F33.40 - as per #7 9. Smoker - ICD9: 305.1, ICD10: F17.200 - Cessation encouraged. - Counseling was given focusing on the harmful effects of this addiction especially given the patient's medical condition(s) which will be worsened because of the chemicals in tobacco. 10. Class 3 severe obesity due to excess calories without serious comorbidity with body mass index (BMI) of 45.0 to 49.9 in adult (HCC) - ICD9: 278.01, V85.42, ICD10: E66.01, Z68.42 Stable - Behavioral intervention 11. Venous insufficiency (chronic) (peripheral) - ICD9: 459.81, ICD10: I87.2 - none on exam today 12. Vitamin B12 deficiency - ICD9: 266.2, ICD10: E53.8 - cont replacement 13. Moderate obstructive sleep apnea - ICD9: 327.23, ICD10: G47.33 - managed per sleep med and on CPAP 14. Advance directive discussed with patient - ICD9: V65.49, ICD10: Z71.89 - packets provided. 15. Screening for osteoporosis - ICD9: V82.81, ICD10: Z13.820 - check DXA 16. Primary ovarian failure - ICD9: 256.39, ICD10: E28.39 - check DXA 17. Stage 3a chronic kidney disease (HCC) - ICD9: 585.3, ICD10: N18.31 - eGFR: 48 Stable - Counseled on avoiding NSAIDs, adequate hydration - ACEi/ARB prescribed: Yes 18. Need for vaccination - ICD9: V05.9, ICD10: Z23 - PNEUMOCOCCAL VACCINE, 20 VALENT (PREVNAR 20): given 19. Paronychia of right thumb - ICD9: 681.02, ICD10: L03.011 - Begin treatment with Cefadroxil (Duricef) - CEFADROXIL 500 MG CAPSULE 20. Elevated hemoglobin A1c - ICD9: 790.29, ICD10: R73.09 - discuss working on improved diet. Requested Prescriptions Signed Prescriptions Disp Refills cefADROxil (DURICEF) 500 mg capsule 14 capsule 0 Sig: Take 1 capsule by mouth two times a day for 7 days. F/u 6 months routine BMP, Lipid, A1c I spent a total of 40 minutes on the date of the service which included preparing to see the patient, [id number] patient care, completing clinical documentation, performing a medically appropriate examination, counseling and educating the patient/family/caregiver and ordering medications, tests, or procedures. Patient was asked at end of visit if they had any questions or input regarding the plan of care we had discussed. Dewayne Chung MD Behavioral Health Screening PHQ-2 Score: 0 (Lower risk for depression) Recommendation: no further intervention at this time documented in this encounter [facility] 08-09-2023 Telephone encounter Note Left detailed message for patient. Carl Bryant MA [facility] 08-09-2023 Miscellaneous Notes Left detailed message for patient. Carl Bryant MA Let patient know blood work and a UA were ordered. No need to fast. Please submit and notify patient of necessary lab orders for upcoming wellness exam with PCP on 08/11/23. documented in this encounter [facility] 08-07-2023 Telephone encounter Note Let patient know blood work and a UA were ordered. No need to fast. [facility] 08-06-2023 Telephone encounter Note Please submit and notify patient of necessary lab orders for upcoming wellness exam with PCP on 08/11/23. [facility] 07-19-2023 History of Present illness Narrative Images from the original note were not included. [facility] Follow up/ Established patient visit Date of last visit : 03/26/2023 The following Impression/Plan was copied and pasted from the patient's last [facility] visit on 03/26/23: IMPRESSION: Mónica (obstructive sleep apnea) (primary encounter diagnosis) Dianne Holly is a 72 year old female with at least moderate MÓNICA. Was doing well with PAP but for the past 2 wks she c/o phlegm, awakes choking, feels she needs heat and humidity adjusted but doesn't know how, didn't bring PAP with her today. We reviewed her nocturnal oximetry report. I reviewed her case with Dr Bell. PLAN: - Continue Auto CPAP at 13-20 cmH2O. - Will try increasing oxygen bleed in to 1.5 LPM - Ask [employer] to help her adjust heat/humidity - See if these changes help her tolerate PAP - If not then get bilevel titration (at [facility]) - Remember to clean your mask and equipment regularly, as directed. - You should be eligible for new supplies approximately every 3-6 months, depending on your insurance coverage. Contact your Durable Medical Equipment (DME) company for new supplies as needed. - Follow up in 2 mos Deonte Douglas APRN.HARMONIC ANALYST Here for follow up for MÓNICA Increasing oxygen didn't help Had to take a break from PAP due to respiratory infection She has always slept with her dentures in, they are loose, wonders if they are a problem, so now sleeping without the dentures, is able to use PAP for 3-4 hrs now (with is increased from 1-2 hrs) Reports benefits if she uses PAP for 4 hrs SLEEP APNEA Sleep apnea type : MÓNICA, Most Recent Apnea-Hypopnea Index (AHI): 26 on HSAT in 06/2022 Treatment : PAP therapy DME: [employer] PAP History: Current PAP settin-20 cm H2O with 1.5 LPM O2 Reviewed objective PAP compliance data: Mask type: full face mask Mask issues: none There is a perceived benefit by the patient: no naps, more energy when she uses it for 4 hrs ---- SLEEP HYGIENE QUESTIONS: Bedtime : 2-3 am Number of times patient wakes up per night : 3x for urination (w/o PAP) Estimated total sleep time ( in a 24 hour period of time) : 5-6 Naps : unintentional when not using PAP PATIENT-ENTERED QUESTIONNAIRE SLEEP SCORES 11/09/2016 06/15/2022 PHQ-9 Score 9 9 09/21/2016 11/09/2016 11/09/2016 PROMIS Global Health - (T-Scores - the mean of general population = 50. Five points is a clinically meaningful difference.) Physical T-Score 32.4 32.4 Mental T-Score 38.8 36.3 36.3 ALLERGIES Allergen Reactions Flagyl [Metronidazo* Itching, Other: See Comments nausea/ throat swelling Ibuprofen Vomiting Hematemesis - [facility] 06/21/2012 Nickel Rash Can only wear gold earrings CURRENT MEDICATIONS: CPAP/BIPAP/OTHER autoCPAP 13-20 cmH2O with 1.5 LPM O2 bleed in DME [employer] verapamil SR (CALAN SR) 180 mg CR tablet Take 1.5 tablets by mouth once daily. albuterol HFA (PROVENTIL HFA, VENTOLIN HFA) 90 mcg/actuation inhaler Inhale 2 Puffs as instructed every 6 hours as needed. buPROPion SR (WELLBUTRIN SR) 150 mg 12 hr tablet Take 1 tablet by mouth once daily. cyanocobalamin (VITAMIN B-12) 1,000 mcg tab Take 1 tablet by mouth once daily. fluticasone furoate (ARNUITY ELLIPTA) 100 mcg/actuation inhaler Inhale 1 Puff as instructed once daily. Do a quick inhalation prior to brushing teeth. Then brush teeth, rinse, gargle and spit. lisinopril-hydroCHLOROthiazide (ZESTORETIC) 20-12.5 mg per tablet Take 2 tablets by mouth once daily. omeprazole (PRILOSEC) 20 mg capsule Take 1 capsule by mouth once daily. pravastatin (PRAVACHOL) 40 mg tablet Take 1 tablet by mouth daily at bedtime. sertraline (ZOLOFT) 100 mg tablet Take 1.5 tablets by mouth every evening. triamcinolone acetonide (KENALOG) 0.1 % cream Apply 1 application to affected area three times a day. Apply sparingly to area for rash/itching. solifenacin (VESICARE) 5 mg tablet Take 1 tablet by mouth once daily. ondansetron orally disintegrating (ZOFRAN ODT) 4 mg disintegrating tablet Take 1 tablet by mouth every 8 hours as needed. MEDICAL SUPPLY BEDSIDE COMMODE. dx: right total hip replacement. z96.641 COMPOUNDED PRESCRIPTION Bedside Commode Dx: right total hip replacement Z96.641 benzonatate (TESSALON PERLES) 100 mg capsule Take 2 capsules by mouth three times a day as needed. (Patient not taking: Reported on 07/19/2023) PHYSICAL EXAMINATION: Vital Signs: BP 120/78 Pulse 80 Resp 18 Wt 121.2 kg (267 lb 3.2 oz) SpO2 95% BMI 48.12 kg/m PHYSICAL EXAM: General appearance: pleasant, NAD Mental status: alert and oriented, able to provide own history Constitutional: obese Skin: No visible rashes on exposed skin Neuro: No focal deficits observed, no tremors IMPRESSION: Mónica (obstructive sleep apnea) (primary encounter diagnosis) Sleep related hypoxia Dianne Holly is a 72 year old female with PMH of at least moderate MÓNICA, sleep related hypoxia, obesity, HTN, HLD, emphysema, smoker, GERD, diverticulitis, MDD, anxiety. She is trying to use PAP more, she is reporting benefits. Aim for using it all night, every night. PLAN: - Continue Auto CPAP at 13-20 cmH2O with 1.5 LPM O2 - Remember to clean your mask and equipment regularly, as directed. - You should be eligible for new supplies approximately every 3-6 months, depending on your insurance coverage. Contact your [employer] ([employer] company for new supplies as needed. - Follow up in 3 months with STEVE. - encouraged smoking cessation, smokes up to 1/2 ppd Deonte Douglas APRN.CNP documented in this encounter [facility] 07-19-2023 Note HNO ID: [id number] Author: DEONTE DOUGLAS APRN.CNP Service: ? Author Type: Nurse Practitioner Type: Progress Notes Filed: 07/19/2023 11:05 Note Text: [facility] Follow up/ Established patient visit Date of last visit : 03/26/2023 The following Impression/Plan was copied and pasted from the patient's last [facility] Center visit on 03/26/23: IMPRESSION: Mónica (obstructive sleep apnea) (primary encounter diagnosis) Dianne Holly is a 72 year old female with at least moderate MÓNICA. Was doing well with PAP but for the past 2 wks she c/o phlegm, awakes choking, feels she needs heat and humidity adjusted but doesn't know how, didn't bring PAP with her today. We reviewed her nocturnal oximetry report. I reviewed her case with Dr Bell. PLAN: - Continue Auto CPAP at 13-20 cmH2O. - Will try increasing oxygen bleed in to 1.5 LPM - Ask [employer] to help her adjust heat/humidity - See if these changes help her tolerate PAP - If not then get bilevel titration (at [facility]) - Remember to clean your mask and equipment regularly, as directed. - You should be eligible for new supplies approximately every 3-6 months, depending on your insurance coverage. Contact your [employer] company for new supplies as needed. - Follow up in 2 mos Deonte Douglas APRN.CNP Here for follow up for MÓNICA Increasing oxygen didn't help Had to take a break from PAP due to respiratory infection She has always slept with her dentures in, they are loose, wonders if they are a problem, so now sleeping without the dentures, is able to use PAP for 3-4 hrs now (with is increased from 1-2 hrs) Reports benefits if she uses PAP for 4 hrs SLEEP APNEA Sleep apnea type : MÓNICA, Most Recent Apnea-Hypopnea Index (AHI): 26 on HSAT in 06/2022 Treatment : PAP therapy DME: [employer] PAP History: Current PAP settin-20 cm H2O with 1.5 LPM O2 Reviewed objective PAP compliance data: Mask type: full face mask Mask issues: none There is a perceived benefit by the patient: no naps, more energy when she uses it for 4 hrs SLEEP HYGIENE QUESTIONS: Bedtime : 2-3 am Number of times patient wakes up per night : 3x for urination (w/o PAP) Estimated total sleep time ( in a 24 hour period of time) : 5-6 Naps : unintentional when not using PAP PATIENT-ENTERED QUESTIONNAIRE SLEEP SCORES 11/09/2016 06/15/2022 PHQ-9 Score 9 9 09/21/2016 11/09/2016 11/09/2016 PROMIS Global Health - (T-Scores - the mean of general population = 50. Five points is a clinically meaningful difference.) Physical T-Score 32.4 32.4 Mental T-Score 38.8 36.3 36.3 ALLERGIES Allergen Reactions Flagyl [Metronidazo* Itching, Other: See Comments nausea/ throat swelling Ibuprofen Vomiting Hematemesis - [facility] 06/21/2012 Nickel Rash Can only wear gold earrings CURRENT MEDICATIONS: CPAP/BIPAP/OTHER autoCPAP 13-20 cmH2O with 1.5 LPM O2 bleed in DME [employer] verapamil SR (CALAN SR) 180 mg CR tablet Take 1.5 tablets by mouth once daily. albuterol HFA (PROVENTIL HFA, VENTOLIN HFA) 90 mcg/actuation inhaler Inhale 2 Puffs as instructed every 6 hours as needed. buPROPion SR (WELLBUTRIN SR) 150 mg 12 hr tablet Take 1 tablet by mouth once daily. cyanocobalamin (VITAMIN B-12) 1,000 mcg tab Take 1 tablet by mouth once daily. fluticasone furoate (ARNUITY ELLIPTA) 100 mcg/actuation inhaler Inhale 1 Puff as instructed once daily. Do a quick inhalation prior to brushing teeth. Then brush teeth, rinse, gargle and spit. lisinopril-hydroCHLOROthiazide (ZESTORETIC) 20-12.5 mg per tablet Take 2 tablets by mouth once daily. omeprazole (PRILOSEC) 20 mg capsule Take 1 capsule by mouth once daily. pravastatin (PRAVACHOL) 40 mg tablet Take 1 tablet by mouth daily at bedtime. sertraline (ZOLOFT) 100 mg tablet Take 1.5 tablets by mouth every evening. triamcinolone acetonide (KENALOG) 0.1 % cream Apply 1 application to affected area three times a day. Apply sparingly to area for rash/itching. solifenacin (VESICARE) 5 mg tablet Take 1 tablet by mouth once daily. ondansetron orally disintegrating (ZOFRAN ODT) 4 mg disintegrating tablet Take 1 tablet by mouth every 8 hours as needed. MEDICAL SUPPLY BEDSIDE COMMODE. dx: right total hip replacement. z96.641 COMPOUNDED PRESCRIPTION Bedside Commode Dx: right total hip replacement Z96.641 benzonatate (TESSALON PERLES) 100 mg capsule Take 2 capsules by mouth three times a day as needed. (Patient not taking: Reported on 07/19/2023) PHYSICAL EXAMINATION: Vital Signs: BP 120/78 Pulse 80 Resp 18 Wt 121.2 kg (267 lb 3.2 oz) SpO2 95% BMI 48.12 kg/m? PHYSICAL EXAM: General appearance: pleasant, NAD Mental status: alert and oriented, able to provide own history Constitutional: obese Skin: No visible rashes on exposed skin Neuro: No focal deficits observ (more content not included)... [facility] 07-14-2023 Telephone encounter Note Images from the original note were not included. [facility] 07-14-2023 Miscellaneous Notes Images from the original note were not included. documented in this encounter [facility] 06-23-2023 History of Present illness Narrative POPULATION HEALTH NAVIGATION OUTREACH Action/FYI LVM MYCHART MESSAGE SENT ANNUAL MEDICARE WELLNESS EXAM MAMMOGRAMS Reason for Outreach Care Gap/HCC or Scheduling Wellness Visits Care Gaps due: Medicare Annual Wellness Visit Breast Cancer Screening Patient Contacted: Unable or unnecessary to reach patient: Left message [employer] message sent Navigation Signature: Jenny Mortensen MA June 23, 2023 9:15 AM documented in this encounter [facility] 05-06-2023 Miscellaneous Notes Images from the original note were not included. documented in this encounter [facility] 05-03-2023 Miscellaneous Notes I called and discussed chest x-ray with patient. No sign of pneumonia. I will send prednisone as she does feel like her COPD is flared. She is only had symptoms for 2 days at this point, chest x-ray clear, did not feel antibiotics warranted now. Discussed if she is not improving over the next 3 to 5 days to be seen again. Patient agreeable. documented in this encounter [facility] 05-03-2023 History of Present illness Narrative Radiology Service Progress Note PATIENT NAME: Dianne Holly DATE OF SERVICE: May 03, 2023 TIME: 11:59 AM PATIENT IDENTITY VERIFICATION COMPLETED USING TWO (2) IDENTIFIERS: Name and Date of confirmed by patient verbally. FALL SCREENING: Has the patient had 2 falls in the last year or 1 fall with injury or currently using an Ambulatory Assistive Device (Walker, Cane, Wheelchair, Crutches, etc.)? No PATIENT GENDER DATA: Female. status: : No status: NO. PATIENT RELEVANT IMPLANT DATA REVIEWED: Not Applicable PATIENT PRESENTS WITH AN IMPLANTABLE OR ATTACHED HEEL LINING PASTER: No RADIOLOGY DEPARTMENT: General X-ray: Exam(s) Completed: Chest X-Ray PERIPHERAL IV DATA: Not applicable SIGNED BY: RT Shelli(R) May 03, 2023 11:59 AM documented in this encounter [facility] 05-03-2023 Miscellaneous Notes Patient notified.Becca Mckeon LPN Your COVID flu and RSV test did end up coming back negative. I would recommend that you come back for that chest x-ray as we discussed yesterday. You can discontinue the Tamiflu as well. documented in this encounter [facility] 05-02-2023 History of Present illness Narrative This note was created using [employer]. Subjective Dianne Holly is a 72 year old female. HPI Presents with fever, chills, cough, sore throat congestion over the past day and a half. She states her daughter currently has influenza A and her is ill as well and they both live with her. She states when she coughs it does hurt in her ribs. She does have a history of COPD and currently still smokes. No vomiting or diarrhea. No home COVID test done. She did try some [id number] cough and cold medicines. Review of Systems Constitutional: Positive for chills, fatigue and fever. HENT: Positive for congestion and sore throat. Negative for ear pain. Respiratory: Positive for cough. Negative for shortness of breath. Cardiovascular: Positive for chest pain (rib pain with cough). Gastrointestinal: Negative. Genitourinary: Negative. Musculoskeletal: Positive for myalgias and neck pain. All other systems reviewed and are negative. PAST MEDICAL HISTORY Diagnosis Date Adenoma of left adrenal gland 12/06/2018 Seen [facility] ER CT 11/28/2018 was stable in size since CT done 11/2015: benign. ADRENAL NODULE 11/17/2007 Anxiety state 11/19/2006 Arthritis Benign neoplasm of colon BPPV (benign paroxysmal positional vertigo) 04/03/2015 Chronic left shoulder pain 09/17/2015 Class 3 severe obesity due to excess calories without serious comorbidity with body mass index (BMI) of 45.0 to 49.9 in adult ([facility]) 06/18/2014 Coronary artery calcification 09/08/[address] 08/2022 DDD (degenerative disc disease), lumbar 01/15/2016 Delayed emergence from general anesthesia Diverticulitis of large intestine without perforation or abscess without bleeding 06/03/2016 Emphysema of lung ([facility]) 06/18/2014 Essential hypertension 11/19/2006 Family history of [...] 10/16/2014 Vertigo 06/14/2017 Vitamin B12 deficiency 05/26/2021 Current Outpatient Medications Medication Sig Dispense Refill oseltamivir (TAMIFLU) 75 mg capsule Take 1 capsule by mouth two times a day for 5 days. 10 capsule 0 benzonatate (TESSALON PERLES) 100 mg capsule Take 2 capsules by mouth three times a day as needed. 30 capsule 0 CPAP/BIPAP/OTHER autoCPAP 13-20 cmH2O with 1.5 LPM O2 bleed in DME [employer] 1 Each 0 verapamil SR (CALAN SR) 180 mg CR tablet Take 1.5 tablets by mouth once daily. 135 tablet 3 albuterol HFA (PROVENTIL HFA, VENTOLIN HFA) 90 mcg/actuation inhaler Inhale 2 Puffs as instructed every 6 hours as needed. 1 Each 5 buPROPion SR (WELLBUTRIN SR) 150 mg 12 hr tablet Take 1 tablet by mouth once daily. 90 tablet 3 cyanocobalamin (VITAMIN B-12) 1,000 mcg tab Take 1 tablet by mouth once daily. 90 tablet 3 fluticasone furoate (ARNUITY ELLIPTA) 100 mcg/actuation inhaler Inhale 1 Puff as instructed once daily. Do a quick inhalation prior to brushing teeth. Then brush teeth, rinse, gargle and spit. 1 Each 5 lisinopril-hydroCHLOROthiazide (ZESTORETIC) 20-12.5 mg per tablet Take 2 tablets by mouth once daily. 180 tablet 3 omeprazole (PRILOSEC) 20 mg capsule Take 1 capsule by mouth once daily. 90 capsule 3 pravastatin (PRAVACHOL) 40 mg tablet Take 1 tablet by mouth daily at bedtime. 90 tablet 3 sertraline (ZOLOFT) 100 mg tablet Take 1.5 tablets by mouth every evening. 135 tablet 3 triamcinolone acetonide (KENALOG) 0.1 % cream Apply 1 application to affected area three times a day. Apply sparingly to area for rash/itching. 80 g 2 solifenacin (VESICARE) 5 mg tablet Take 1 tablet by mouth once daily. 30 tablet 5 ondansetron orally disintegrating (ZOFRAN ODT) 4 mg disintegrating tablet Take 1 tablet by mouth every 8 hours as needed. 20 tablet 2 MEDICAL SUPPLY BEDSIDE COMMODE. dx: right total hip replacement. z96.641 1 Each 0 COMPOUNDED PRESCRIPTION Bedside Commode Dx: right total hip replacement Z96.641 1 Each 0 No current facility-administered medications for this visit. PAST SURGICAL HISTORY Procedure Laterality Date ARTHROSCOPY KNEE DIAGNOSTIC W/WO SYNOVIAL BX SPX 2001 Arthroscopy, knee right ARTHRP ACETBLR/PROX FEM PROSTC AGRFT/ALGRFT Right 06/23/2017 Hip replacement, total BREAST SURGERY HX COLONOSCOPY 07/24/2021 COLONOSCOPY & POLYPECTOMY 06/16/2016 repeat 5 years COLONOSCOPY W/BIOPSY SINGLE/MULTIPLE 04/01/2009 EGD TRANSORAL BIOPSY SINGLE/MULTIPLE 06/22/[address] [facility] [address] Marroquin FRACTURE SURGERY JOINT REPLACEMENT [...] use: Yes Comment: rare Drug use: No Objective BP 129/79 Pulse 92 Temp 37.4 C (99.4 F) Resp 30 Wt 122.5 kg (270 lb) SpO2 93% BMI 48.63 kg/m Physical Exam Vitals reviewed. Constitutional: Appearance: Normal appearance. HENT: Head: Normocephalic and atraumatic. Right Ear: Tympanic membrane, ear canal and external ear normal. Left Ear: Tympanic membrane, ear canal and external ear normal. Nose: Congestion present. Mouth/Throat: Mouth: Mucous membranes are moist. Pharynx: Oropharynx is clear. Cardiovascular: Rate and Rhythm: Normal rate and regular rhythm. Heart sounds: Normal heart sounds. Pulmonary: Effort: Pulmonary effort is normal. No respiratory distress. Breath sounds: No wheezing, rhonchi or rales. Musculoskeletal: Cervical back: Neck supple. Skin: General: Skin is warm and dry. Neurological: Mental Status: She is alert. Assessment and Plan ASSESSMENT/PLAN: 1. Fever, unspecified fever cause - ICD9: 780.60, ICD10: R50.9 Patient's rapid flu is negative however still suspicious for influenza as her daughter has influenza A and her is ill and they live with her. I will do a send out COVID flu rsv PCR test. She will however be out of the window for Tamiflu tomorrow so I did have her start it tonight. If viral swabs are all negative again tomorrow recommend she come back for chest x-ray as it is closed today for the weekend. Also given Tessalon for cough. Patient agreeable with plan. - INFLUENZA A&B MOLECULAR (POC) - COVID & INFLUENZA A/B & RSV NAAT, ROUTINE - XR CHEST 2V FRONTAL/LAT Anamaria Gonzalez PA-C documented in this encounter [facility] 03-08-2023 Discharge summary Note Date/Time March 08, 2023 10:18pm [facility] Medical Records Department [address] [place] [address] Emergency Department Summary 03/08/23 MR#: [id number] Acct: [id number] Name: DIANNE HOLLY Rep #:[id number] : 1950 72 From: Chon Chaudhry MD PCP: Dr. Dewayne Chung MD Status:REG ER Location: ED HPI History of Present Illness Chief Complaint: Complaint Narrative Narrative: 72-year-old female past medical history of hypertension, frequent urinary tract infections, presents with 2 chief complaints, mainly her continued urinary frequency, and right low back pain radiating down towards her knee. She relateshistory that she had a right hip replacement approximately [address] Pratt. At that time, she had problems with frequent urinary tract infections, and was told to be careful because the hip joint could get infected. Approximately 3 weeks ago, she was treated for UTI with urinary frequency symptoms and took antibiotics for 5 days. She is not quite sure if it cleared up because she is still having urinary frequency. She denies any fevers or chills, no nausea or vomiting. At about the same time, she developed right hip and low back pain that radiates towards the front, on the lateral thigh and towards her knee. She denies any loss of bowel or bladder but does admit that she tried to take care of her small dog and has to given medication and has beenbending and twisting in certain ways that she had not previously. It is worsened by lying down but alleviated by sitting. [facility] Medical History COPD (chronic obstructive pulmonary disease) Depression GERD (gastroesophageal reflux disease) HTN (hypertension) Home Medications omeprazole 10 mg capsule,delayed release 20 mg PO DAILY GERD 07/31/13 [History Last Taken Unknown] sertraline 100 mg tablet 100 mg PO QHS Depression 07/31/13 [History Last Taken 06/24/17 21:12] Verapamil Hcl [Verapamil Sr] 270 mg PO DAILY blood pressure 06/25/17 [History Last Taken 06/24/17 21:38] bupropion HCl 150 mg tablet,12 hr sustained-release 150 mg PO DAILY Mood 06/25/17 [History Last Taken 06/25/17 08:56] lisinopril 20 mg-hydrochlorothiazide 12.5 mg tablet (Zestoretic) 1 ea PO DAILY Hypertension 06/25/17 [History Last Taken Unknown] pravastatin 40 mg tablet 40 mg PO QHS Cholestrol 06/25/17 [History Last Taken Unknown] sennosides 8.6 mg tablet (senna) 8.6 mg PO DAILY Bowel movement 06/25/17 [History Last Taken 06/25/17 08:56] tizanidine 4 mg tablet 4 mg PO DAILY Muscle relaxant 06/25/17 [History Last Taken Unknown] nystatin 100,000 unit/gram topical powder (Nyamyc) 1 applic topical BID 07/13/17[Rx Last Taken Unknown] sennosides 8.6 mg-docusate sodium 50 mg tablet 2 tab PO BID #120 tabs 07/13/17 [Rx Last Taken Unknown] ondansetron 4 mg disintegrating tablet 4 mg PO Q8H PRN PRN Nausea #14 tabs 11/28/18 [Rx Last Taken Unknown] amoxicillin 875 mg-potassium clavulanate 125 mg tablet 875 mg (0.875 x 875-125 mg) PO Q12H #20 tabs 07/01/22 [Rx Last Taken Unknown] hydrocodone-acetaminophen 5-325mg 5mg-325mg 1 tab PO Q4H PRN PRN Pain 2 days #10TABLETS 07/01/22 [Rx Last Taken Unknown] hydrocodone-acetaminophen 5-325mg 5mg-325mg 1 tab PO Q6H PRN PRN Pain 3 days #10TABLETS 07/06/22 [Rx Last Taken Unknown] amoxicillin 875 mg-potassium clavulanate 125 mg tablet 875 mg (0.875 x 875-125 mg) PO Q12H #14 TABLETS 10/17/22 [Rx Last Taken Unknown] Allergy/AdvReac Type Severity Reaction Status Date / Time nickel Allergy Hives Verified 03/08/23 21:43 ibuprofen AdvReac Other Verified 03/08/23 21:43 metronidazole [From Flagyl] AdvReac Swelling Verified 03/08/23 21:43 Surgical History History of total hip replacement Social History household members: none Smoking Status: Current every day smoker tobacco type: cigarettes substance use type: does not use ROS ROS ED ROS Narrative Constitutional: No fever, no chills. HEENT: No sore throat. No neck pain. No loss of vision. No rhinorrhea. Cardiovascular: No chest pain. No palpitations. No pedal edema. Respiratory: No cough, no shortness of breath. Abdominal: No abdominal pain. No nausea. No vomiting. Genitourinary: No dysuria. No hematuria. Urinary frequency. Musculoskeletal: No myalgias. Low back pain. Positive right lateral thigh radiating towards knee pain. Pain in right hip. Neurologic: No headaches. No dizziness. No lightheadedness. Skin: No rash. No change in color. Psychiatric: No depression. No anxiety. EXAM Physical Exam Narrative Exam Narrative: Afebrile. Vital signs noted. HEENT: Normocephalic. Atraumatic. PERRL, EOMI. Neck soft and supple. No pointtenderness or step off. Cardiovascular: Regular rate and rhythm. No murmurs, rubs, or gallops appreciated. Respiratory: No tachypnea. Lungs clear to auscultation bilaterally. Gastrointestinal: Abdomen soft, nontender, please, with normoactive bowel sounds. No rebound or guarding. Neurological: Awake. Alert. Nonfocal, nonlateralizing. Skin: No rash. Normal color. No pallor. Musculoskeletal: No pedal edema. Full range of motion extremities. Will to transfer and ambulate in the ED. Mild tenderness to palpation right low paraspinal lumbar musculature with minimal tenderness in right sciatic notch. Mild tenderness over sacroiliac joint. Const Vital Signs: 03/08/23 21:40 Temperature 98 F Temperature Source Temporal Pulse Rate 91 Respiratory Rate 18 Blood Pressure 133/73 H Blood Pressure Mean 93 Pulse Ox 94 Oxygen Delivery Method Room Air MDM MDM MDM Narrative Medical decision making narrative: Concern is for, sacroiliitis versus lumbar radiculopathy/sciatica versus UTI. Ihave low concern for septic joint as she is not febrile or tachycardic. I do not feel laboratory work is indicated/blood work, but urine sample may have beensent to look for infection. I will obtain x-rays of her lumbar spine and upper pelvis and right hip to rule out any dislocation or periprosthetic fracture. She may have spinal stenosis and DJD as well. I reviewed her urinalysis and while she has nitrite positive, there are 0-5 WBCsand 0-5 RBCs. I will refrain from antibiotics and send her urine for culture. This was performed through shared decision-making with the patient as she had already completed 5 days of an antibiotic. She is more concerned about septic joint of her right hip. She was seen ambulating from the bathroom independently. I have low suspicion for this. I do not feel blood work is indicated. X-rays were obtained of the lumbar spine and 2-3 views and of the right hip and pelvis and 2-3 views and interpreted by myself independently. I see no evidence of fracture or dislocation, but DJD of the spine. I reviewed the radiology report which confirms my independent interpretation. At this point in time, in discussion with the patient, she was told that she was having back and hip issues at the same time 5 years ago. She did not want surgery on her back. However, I do feel that she may need to revisit this as she is havingmore radicular pains. She will continue [id number] medications. She willfollow-up with her primary care provider for possible referral to orthopedic spine. I do not feel narcotics are indicated. Return instructions to the emergency department were reviewed. Disposition is discharged home in stable condition. History & Record Review Discussion w/independent historian: Patient Lab Data Attestation: I reviewed the patient's lab results. Labs: Laboratory Results - last 24 hr 03/08/23 22:16 Urine Color Yellow Urine Clarity Sl. Cloudy Urine pH 6.0 Ur Specific [place] 1.015 Urine Protein 15 H Urine Glucose (UA) Normal Urine Ketones Negative Urine Occult Blood 25 H Urine Nitrite Positive H Urine Bilirubin Negative Urine Urobilinogen Normal Ur Leukocyte Esterase 25 H Urine RBC 0-5 SEEN Urine WBC 0-5 SEEN Ur Squamous Epith Cells 0-5 SEEN Amorphous Sediment 1+ URATE Urine Bacteria 2+ Urine Mucus 0 SEEN Radiography Diagnostic Testing: Clinical Impression(s) from Imaging Studies Hip/Pelvis X-Ray 03/08/23 22:40 IMPRESSION: Right-sided hip prosthesis in place with normal alignment. No acute fracture or subluxation seen. Multilevel degenerative disease as described. Electronically Signed: Madelyn Mckinney MD at 22:52 EST , Lumbar Spine X-Ray 03/08/23 22:40 IMPRESSION: Multilevel degenerative disease with no acute fracture or spondylolisthesis. Electronically Signed: Madelyn Mckinney MD at 22:53 EST , Discharge Plan Triage Chief Complaint: Complaint ED Provider: Chon Chaudhry Dx/Rx/DC Orders Clinical Impression: Urinary frequency, Degenerative joint disease (DJD) of lumbar spine, Lumbar radiculopathy, right Instructions: ED Degenerative Disk Disease, ED Sciatica Prescriptions: No Action sertraline 100 MG tablet 100 mg PO QHS omeprazole 10 MG capsule 20 mg PO DAILY bupropion HCl 150 MG tablet sustained-release 12 hr 150 mg PO DAILY sennosides [senna] 8.6 MG tablet 8.6 mg PO DAILY lisinopril-hydrochlorothiazide [Zestoretic] 1 EACH tablet 1 ea PO DAILY pravastatin 40 MG tablet 40 mg PO QHS tizanidine 4 MG tablet 4 mg PO DAILY Verapamil Hcl [Verapamil Sr] 180 MG Cap24h.Pel 270 mg PO DAILY sennosides-docusate sodium 1 TABLET tablet 2 tab PO BID Qty: 120 0RF nystatin [Nyamyc] 1 APPLIC bottle 1 applic topical BID 0RF Protocol: *Topical Application Instructions APPLICATION INSTRUCTIONS: apply under bilateral breasts ondansetron 4 MG tablet 4 mg PO Q8H PRN PRN (Reason: Nausea) Qty: 14 0RF hydrocodone-acetaminophen [hydrocodone-acetaminophen] 5-325 mg tablet 1 tab PO Q4H PRN PRN (Reason: Pain) 2 Days Qty: 10 0RF amoxicillin-pot clavulanate 875 MG tablet 875 mg PO Q12H Qty: 20 0RF hydrocodone-acetaminophen [hydrocodone-acetaminophen] 5-325 mg tablet 1 tab PO Q6H PRN PRN (Reason: Pain) 3 Days Qty: 10 0RF amoxicillin-pot clavulanate [amoxicillin-pot clavulanate] 875-125 mg tablet 875 mg PO Q12H Qty: 14 0RF Primary Care Provider: Dewayne Chung Referrals: Dewayne Chung MD [Primary Care Provider] - 3-5 Days Disposition Disposition: Home, Self Care What to do if you have Problems For any increased pain, shortness of breath, bleeding, nausea or vomiting, chestpain, or any unexpected problems, contact your Primary Care Provider. Call [facility] ([phone]) or report to the closest Emergency Room. Call 911 if necessary. 03/08/23 3603 <Electronically signed by Chon Chaudhry MD> Cosigner Signature (if applicable): CC: Dr. Dewayne Chung MD ~ Signed [facility] Work Phone: [phone]) 467-655212-13-2023 Miscellaneous Notes* Telephone Encounter - Delilah Santoro - 02/10/2023 10:31 AM EST MERCEDES:11/04/22 No know appt made. * Telephone Encounter - Rachael Bee - 02/10/2023 10:24 AM EST Patient has been identified by name and date of : Yes Requested Prescriptions Pending Prescriptions Disp Refills solifenacin (VESICARE) 5 mg tablet 30 tablet 5 Sig: Take 1 tablet by mouth once daily. RX INSTRUCTIONS: Patient aware RX will be sent to pharmacy. Please call patient when this has been sent at [phone]. Rachael Grey documented in this encounterAdena [facility] Center2023 Miscellaneous Notes* Telephone Encounter - Sayra Valencia LPN - 02/08/2023 12:23 PM EST Spoke with pt and information listed below given. Pt verbalizes understanding. Sayra Valencia LPN * Telephone Encounter - Bhavya Matias MA - 02/07/2023 1:47 PM EST ----- Message from Jenny Price APRN.STEPHANI sent at 02/07/2023 8:05 AM EST ----- Urine culture did not show clear evidence of infection, however it appears sample may have been contaminated with skin bacteria during collection. She may continue to take antibiotic if it has been helpful. Recommend follow up with PCP to ensure hematuria has resolved. Jenny Price CNP documented in this encounterAdena Regional Medical Center12-08-2023 History of Present illness Narrative* Rosanna Worley APRN.STEPHANI - 02/05/2023 1:49 PM EST This note was created using [employer]. Subjective Dianne Holly is a 72 year old female. 72 year old female with PMH HTN, hyperlipidemia, CAD, GERD, and obesity presents for complaints of possible UTI. Acute onset one week ago. +frequency +urgency +suprapubic pressure Denies flank pain Denies abdominal pain. Denies vaginal bleeding. Denies vaginal discharge This is how my UTI's normally are The history is provided by the patient. 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 UTI This is a new [...] nothing for the symptoms. Her past medical historydoes not include kidney stones, single kidney, urological procedure, recurrent UTIs, urinary stasisor catheterization. PAST MEDICAL HISTORY Diagnosis Date Adenoma of left adrenal gland 12/06/2018 Seen [facility] ER CT 11/28/2018 was stable in size since CT done 11/2015: benign. ADRENAL NODULE 11/17/2007 Anxiety state 11/19/2006 Arthritis Benign neoplasm of colon BPPV (benign paroxysmal positional vertigo) 04/03/2015 Chronic left shoulder pain 09/17/2015 Class 3 severe obesity due to excess calories without serious comorbidity with body mass index (BMI) of 45.0 to 49.9 in adult ([facility]) 06/18/2014 Coronary artery calcification 09/08/[address] 08/2022 DDD (degenerative disc disease), lumbar 01/15/2016 Delayed emergence from general anesthesia Diverticulitis of large intestine without perforation or abscess without bleeding 06/03/2016 Emphysema of lung ([facility]) 06/18/2014 Essential hypertension 11/19/2006 Family history of [...] SINGLE/MULTIPLE 04/01/2009 EGD TRANSORAL BIOPSY SINGLE/MULTIPLE 06/22/[address] [facility] [address] Marroquin FRACTURE SURGERY JOINT REPLACEMENT [...] She is obese. She is not ill-appearing, toxic- appearing or diaphoretic. HENT: Head: Normocephalic and atraumatic. [...] URINE (POC) - URINE CULTURE Rosanna Worley APRN.HARMONIC ANALYST documented in this encounterAdena Regional Medical Center11-29-2023 Miscellaneous Notes* Telephone Encounter - Rosanna Laurent LPN - 01/27/2023 2:04 PM EST Pt rescheduled appointment. Rosanna Laurent LPN * Telephone Encounter - Deonte Douglas APRN.CNP - 01/27/2023 1:58 PM EST Yes let's push it back a week Deonte Douglas APRN.HARMONIC ANALYST * Telephone Encounter - Debi Montoya - 01/27/2023 12:18 PM EST Tiana Contaced with update. They could not reach the pt for the overnight pulse ox. Pt finally reached out to them 01/26/23 so she will not get the equipment until 01/28/23. Pt is scheduled for follow up 01/29/23 but results will not be back for that appt according to Tiana. documented in this encounterAdena Regional Medical Center11-01-2023 Miscellaneous Notes* Telephone Encounter - Dewayne Chung MD - 12/30/2022 9:28 PM EDT The following approved medication requests have been [...] once daily. Authorizing Provider: DEWAYNE CHUNG MD * Telephone Encounter - Naomy Jones Ma - 12/30/2022 4:00 PM EDT Patient last visit 11/24/22 Follow up appointment scheduled none advised to return in a year Naomy Jones Ma * Telephone Encounter - Rachael Bee - 12/30/2022 3:56 PM EDT Patient has been identified by name and [...] pharmacy. No need to notify patient. Rachael Valencia Pss documented in this encounterAdena Regional Medical Center10-12-2023 Miscellaneous Notes* Telephone Encounter - Sayra Valencia LPN - 12/10/2022 1:55 PM EDT Spoke with pt and information listed below given. Pt verbalizes understanding. Sayra Valencia LPN * Telephone Encounter - Dewayne Chung MD - 12/09/2022 8:12 PM EDT Let patient know script sent in. The following approved medication requests have been transmitted electronically. Requested Prescriptions Signed Prescriptions Disp Refills pravastatin (PRAVACHOL) 40 mg tablet 90 tablet 1 Sig: Take 1 tablet by mouth daily at bedtime. Authorizing Provider: DEWAYNE CHUNG MD * Telephone Encounter - Kina Villegas LPN - 12/09/2022 12:31 PM EDT Per below pt is out of med and requesting refill today. Call pt once rx has been sent. Last refill 06/11/22 Qty: 90 with 1 refill MERCEDES 11/04/22 NOV pt is seen yearly Knia Villegas LPN * Telephone Encounter - Genevieve Ricardo - 12/09/2022 9:56 AM EDT Patient is out of this medication and needs today. Patient has been identified by name and date of : Yes Requested Prescriptions Pending Prescriptions Disp Refills pravastatin (PRAVACHOL) 40 mg tablet 90 tablet 1 Sig: Take 1 tablet by mouth daily at bedtime. RX INSTRUCTIONS: Patient requesting a call when RX is approved and sent to the pharmacy. Genevieve Ricardo documented in this encounterAdena Regional Medical Center10-03-2023 Instructions* Patient Instructions* Wanda Pa APRN.HARMONIC ANALYST - 12/01/2022 7:19 AM EDT Weight Management: [...] time you will have triumphs, setbacks and plateaus-your body will fight against you but we [...] weight loss it adds only a little be nefit for nursing home weight loss success. However, exercise can have many other benefits including improving mental health and cardiovascular health. Do not feel overwhelmed- we will discuss this moreat your visits. Our time will be limited with each visit but we will try to touch on factors that are important to you and to your overall goals. We will try to set a goal at the end of each visit and then decide onwhat we want to accomplish with your upcoming [...] factor. There are medications that work well forsome and not for others- so it may [...] that affects nearly one-third of the adult [place] population (approximately 60 million). The number of overweight and obese Americans has continued to increase since 1960, a trend that is not slowing down. Today, 64.5 percent of adult Americans (about 127 million) are categorized as being overweight or obese. Each year, obesity causes at least 300,000 excess deaths in the [place] and healthcare costs of [place] adults with obesity amount to approximately $100 [...] many calories while not getting enough exercise) andpsychological components. It is the second leading cause of preventable in the [place] Behavioral changes brought on by economic development, modernization and urbanization have been linked to therise in global obesity. Calculating BMI Body Mass [...] found to increase concurrently with higher BMI. Prematuredeath, a 20-year shorter life span, has also [...] the gallbladder, breast, uterus, cervix, or ovaries [email or web address]-[email or web address] ducation Nutrition - Eat primarily whole foods. Limit [...] & Wanda Pa CNP documented in this encounterAdena Regional Medical Center09-29-2023 Instructions* Patient Instructions* Yan Bell Jr., MD - 11/27/2022 12:05 PM EDT PAP Supply Guidelines Below are the guidelines for reordering your supplies. You will be responsible for your deductible,co-payments, and out of pocket expenses. Item Medicare [...] every 6 months *Self-Pay documented in this encounterAdena Regional Medical Center09-29-2023 History of Present illness Narrative* Yan Bell Jr., MD - 11/27/2022 11:43 AM EDT ESTABLISHED PATIENT VISIT CHIEF COMPLAINT: Follow Up [...] transcutaneous CO2. Pt agrees with plan but requestsstudy be performed at [facility]. Will order treatment based on PAP titration results with follow up approx imately 2-3 months later. Pt agrees with plan. PAP titration was performed at [facility] and per report of 08/27/22, recommended Auto PAP 13-20 cmH2O [id number] of O2. PAP data download shows pt using 39/39 days since received device. Set at 13-20 cmH2O. Avg use of 4hours and 56 minutes. 95% pressure is 17.1 [...] Adenoma of left adrenal gland 12/06/2018 Seen [facility] ER CT 11/28/2018 was stable in size since CT done 11/2015: benign. ADRENAL NODULE 11/17/2007 Anxiety state 11/19/2006 Arthritis Benign neoplasm of colon BPPV (benign paroxysmal positional vertigo) 04/03/2015 Chronic left shoulder pain 09/17/2015 Class 3 severe obesity due to excess calories without serious comorbidity with body mass index (BMI) of 45.0 to 49.9 in adult ([facility]) 06/18/2014 Coronary artery calcification 09/08/[address] 08/2022 DDD (degenerative disc disease), lumbar 01/15/2016 Delayed emergence from general anesthesia Diverticulitis of large intestine without perforation or abscess without bleeding 06/03/2016 Emphysema of lung ([facility]) 06/18/2014 Essential hypertension 11/19/2006 Family history of [...] 11/23/2017 Recurrent major depressive disorder, in remission ([facility]) 11/23/2017 Smoker 05/27/2010 Status post right hip [...] first have pt undergo mask fit at [facility] [place] while also having pt undergo nocturnal [...] Dr. Chung and informed Dr. Chung through [employer] messaging. Yan Bell MD I spent a total of 25 minutes on the date of the service which included preparing to see the patient, [id number] patient care, completing clinical documentation, obtaining and/or reviewing separately obtained history, performing a medically appropriate examination, counseling and educating the pat ient/family/caregiver, ordering medications, tests, or procedures, communicating with other HCPs (not separately reported), independently interpreting results (not separately reported), and communicating results to the patient/family/caregiver (results = PAP data download). documented in this encounterAdena Regional Medical Center09-18-2023 History of Present illness Narrative* May Villanueva RT(R) - 11/16/2022 1:40 PM EDT Radiology Service Progress Note PATIENT NAME: Dianne Holly DATE OF SERVICE: November 16, 2022 TIME: 1:40 PM PATIENT IDENTITY VERIFICATION COMPLETED USING TWO (2) IDENTIFIERS: Name and Date of confirmedby patient verbally. FALL SCREENING: Has the patient [...] RT Shelli(R) November 16, 2022 1:40 PM documented in this encounterAdena Regional Medical Center09-18-2023 History of Present illness Narrative* Keke Bae APRN.CNP - 11/16/2022 1:39 PM EDT Subjective HPI HPI Dianne Holly is a [...] Adenoma of left adrenal gland 12/06/2018 Seen [facility] ER CT 11/28/2018 was stable in size since CT done 11/2015: benign. ADRENAL NODULE 11/17/2007 Anxiety state 11/19/2006 Arthritis Benign neoplasm of colon BPPV (benign paroxysmal positional vertigo) 04/03/2015 Chronic left shoulder pain 09/17/2015 Class 3 severe obesity due to excess calories without serious comorbidity with body mass index (BMI) of 45.0 to 49.9 in adult ([facility]) 06/18/2014 Coronary artery calcification 09/08/[address] 08/2022 DDD (degenerative disc disease), lumbar 01/15/2016 Delayed emergence from general anesthesia Diverticulitis of large intestine without perforation or abscess without bleeding 06/03/2016 Emphysema of lung ([facility]) 06/18/2014 Essential hypertension 11/19/2006 Family history of [...] SINGLE/MULTIPLE 04/01/2009 EGD TRANSORAL BIOPSY SINGLE/MULTIPLE 06/22/[address] [facility] [address] Marroquin FRACTURE SURGERY JOINT REPLACEMENT [...] COVID NAAT, UPPER RESPIRATORY, ROUTINE Keke Bae APRN.HARMONIC ANALYST documented in this encounterAdena Regional Medical Center08-31-2023 Miscellaneous Notes* Telephone Encounter - Paris Silva LPN - 10/29/2022 10:58 AM EDT Pt was notified of message & transferred to senior power scheduler to change appt. Paris Silva LPN * Telephone Encounter - Kina Villegas LPN - 10/29/2022 10:23 AM EDT Left message for pt to call back and speak with Triage Nurse. Pt needs to reschedule appointment for obesity at [facility] that was scheduled with Pattie Ruby. Padmini had advised schedulers this appointment needs to be with Dr De La Vega or Wanda Pa. Please help pt get this scheduledcorrectly. Thank you! Kina Villegas LPN documented in this encounterAdena Regional Medical Center08-30-2023 History of Present illness Narrative* Padmini Solorzano PA-C - 10/28/2022 12:53 PM EDT Chief Complaint Patient presents with: Suture Removal: [...] Adenoma of left adrenal gland 12/06/2018 Seen [facility] ER CT 11/28/2018 was stable in size since CT done 11/2015: benign. ADRENAL NODULE 11/17/2007 Anxiety state 11/19/2006 Arthritis Benign neoplasm of colon BPPV (benign paroxysmal positional vertigo) 04/03/2015 Chronic left shoulder pain 09/17/2015 Class 3 severe obesity due to excess calories without serious comorbidity with body mass index (BMI) of 45.0 to 49.9 in adult ([facility]) 06/18/2014 Coronary artery calcification 09/08/[address] 08/2022 DDD (degenerative disc disease), lumbar 01/15/2016 Delayed emergence from general anesthesia Diverticulitis of large intestine without perforation or abscess without bleeding 06/03/2016 Emphysema of lung ([facility]) 06/18/2014 Essential hypertension 11/19/2006 Family history of [...] SINGLE/MULTIPLE 04/01/2009 EGD TRANSORAL BIOPSY SINGLE/MULTIPLE 06/22/[address] [facility] [address] Marroquin FRACTURE SURGERY JOINT REPLACEMENT [...] nausea/ throat swelling Ibuprofen Vomiting Hematemesis - [facility] 06/21/2012 Nickel Rash Can only wear [...] in no acute distress, well-hydrated, well nourished. andMorbidly obese. Skin: scabbing noted along laceration. No [...] GYNECOLOGY Padmini Solorzano PA-C documented in this encounterAdena Regional Medical Center08-24-2023 Miscellaneous Notes* Telephone Encounter - Carl Bryant MA - 10/22/2022 8:37 AM EDT Patient notified and voiced and voiced understanding. Patient was seen in Er for dog bite. Needs suture removal. Documents scanned. Also scheduled patient's physical. Carl Bryant MA * Telephone Encounter - Dewayne Chugn MD - 10/22/2022 8:30 AM EDT Let patient know stress test was ok. * Telephone Encounter - Carl Bryant MA - 10/22/2022 8:02 AM EDT Scan on 10/20/2022 1:14 PM by Provider, External, PA-C: Stress Test Please review results. Carl Bryant MA documented in this encounterAdena Regional Medical Center08-24-2023 History of Present illness Narrative* Carl Bryant MA - 10/22/2022 8:01 AM EDT Scan on 10/17/2022 9:07 PM by Provider, External, PA-C: Consultation - Emergency Medicine Carl Bryant MA documented in this encounterAdena Regional Medical Center08-19-2023 Discharge summary Author Delgado Santizo [facility] October 17, 2022 9:00pm Note Date/Time October 17, 2022 7: 29pm [facility] Medical Records Department [address] [place] [address] Emergency Department Summary 10/17/22 MR#: [id number] Acct: [id number] Name: DIANNE HOLLY Rep #:[id number] : 1950 71 From: Delgado Santizo MD PCP: Dr. Dewayne Chung MD Status:REG ER Location: ED HPI History of Present Illness Chief Complaint: Bite Informant: patient Onset/Context/Timing Onset: Today (JPTA) Context: Sudden Onset Timing: Continuous Quality of Pain: - (sore) Location: R wrist/FA Current Severity: Mild Maximum Severity: Mild Worsened by: palpation Relieved by: leaving alone Associated Symptoms Associated Symptoms: Negative for Parasthesia, Weakness or Loss of Funtion Narrative Narrative: Patient's own pet dog had a jordyn in his mouth and she was trying to help removeit, the dog reflexively bit her in the wrist and as she tried to get her arm out, skin tore on the dog's teeth. [id number]. No problems moving herarm or hand, she does not feel like there is pain anywhere but the skin. Tetanus Immunization: <5 years [facility] Medical History COPD (chronic obstructive pulmonary disease) Depression GERD (gastroesophageal reflux disease) HTN (hypertension) Home Medications omeprazole 10 mg capsule,delayed release 20 mg PO DAILY GERD 07/31/13 [History Last Taken Unknown] sertraline 100 mg tablet 100 mg PO QHS Depression 07/31/13 [History Last Taken 06/24/17 21:12] Verapamil Hcl [Verapamil Sr] 270 mg PO DAILY blood pressure 06/25/17 [History Last Taken 06/24/17 21:38] bupropion HCl 150 mg tablet,12 hr sustained-release 150 mg PO DAILY Mood 06/25/17 [History Last Taken 06/25/17 08:56] lisinopril 20 mg-hydrochlorothiazide 12.5 mg tablet (Zestoretic) 1 ea PO DAILY Hypertension 06/25/17 [History Last Taken Unknown] pravastatin 40 mg tablet 40 mg PO QHS Cholestrol 06/25/17 [History Last Taken Unknown] sennosides 8.6 mg tablet (senna) 8.6 mg PO DAILY Bowel movement 06/25/17 [History Last Taken 06/25/17 08:56] tizanidine 4 mg tablet 4 mg PO DAILY Muscle relaxant 06/25/17 [History Last Taken Unknown] nystatin 100,000 unit/gram topical powder (Nyamyc) 1 applic topical BID 07/13/17[Rx Last Taken Unknown] sennosides 8.6 mg-docusate sodium 50 mg tablet 2 tab PO BID #120 tabs 07/13/17 [Rx Last Taken Unknown] ondansetron 4 mg disintegrating tablet 4 mg PO Q8H PRN PRN Nausea #14 tabs 11/28/18 [Rx Last Taken Unknown] amoxicillin 875 mg-potassium clavulanate 125 mg tablet 875 mg (0.875 x 875-125 mg) PO Q12H #20 tabs 07/01/22 [Rx Last Taken Unknown] hydrocodone-acetaminophen 5-325mg 5mg-325mg 1 tab PO Q4H PRN PRN Pain 2 days #10TABLETS 07/01/22 [Rx Last Taken Unknown] hydrocodone-acetaminophen 5-325mg 5mg-325mg 1 tab PO Q6H PRN PRN Pain 3 days #10TABLETS 07/06/22 [Rx Last Taken Unknown] amoxicillin 875 mg-potassium clavulanate 125 mg tablet 875 mg (0.875 x 875-125 mg) PO Q12H #14 TABLETS 10/17/22 [Rx Last Taken Unknown] Allergy/AdvReac Type Severity Reaction Status Date / Time nickel Allergy Hives Verified 10/17/22 19:17 ibuprofen AdvReac Other Verified 10/17/22 19:17 metronidazole [From Flagyl] AdvReac Swelling Verified 10/17/22 19:17 Surgical History History of total hip replacement Social History (Updated 07/06/22 @ 19:[address] Marcus Westbrook MD) household members: none Smoking Status: Current every day smoker tobacco type: cigarettes substance use type: does not use ROS ROS ED Constitutional Constitutional ED: Denies chills or fever(s) Musculoskeletal Musculoskeletal: Reports extremity pain; Denies neck pain Integumentary Reports as per HPI and laceration; Denies Abrasions or rash Neurologic Neurologic: Denies paresthesias or weakness EXAM Physical Exam Const Vital Signs: 10/17/22 19:16 Temperature 98 F Temperature Source Temporal Pulse Rate 78 Respiratory Rate 16 Blood Pressure 166/92 H Blood Pressure Mean 116 Pulse Ox 96 Oxygen Delivery Method Room Air Positive well nourished and well developed General Appearance ED: well developed and NAD Neck full ROM and supple Back/Spine normal ROM and normal to inspection Neuro oriented x3, no focal motor deficits and no sensory deficits noted Sensorium / Orientation: alert Psych mental status grossly normal and thought process normal Skin Skin Narrative: Skin tear/laceration, stellate, longitudinally dorsal right wrist into the distal forearm, there is a subcutaneous portion of it that goes into subcutaneous fat proximally, but the majority of it is only skin-deep and not through the entire dermis otherwise. Dried blood but no active bleeding, no foreign material. No bony tenderness. Entire skin tear/laceration is approximately 6 centimeters long. There is an additional 1.5 cm horizontal/transverse clean appearing laceration subcutaneous distal to this and a little radial on the dorsum of the right hand. An additional 0.5 cm partial-thickness laceration dorsal right thumb, just proximal to the MCPJ, and yet an additional 1 cm laceration at the volar aspect of the right wrist subcutaneous linear. Rashes: no rashes MDM MDM MDM Narrative Medical decision making narrative: No bony injury or foreign material, wounds are not deep they are subcutaneous mostly and I do not think she needs an x-ray to look for foreign body or bony involvement. All the lacerations were repaired, except for a couple small ones which were left alone, there is some skin tear involvement that was left alone as well. The skin tear/laceration needed pull together because much of it involves subcutaneous tissue. This was done without difficulty and did not tear, she was given appropriate discharge instructions, suture removal instructions, as well as antibiotic she was started on Augmentin here. Procedures Lacerations R dorsal forearm/wrist: Length: 6 cm Depth: Sub Q Shape: Stellate Prep: Sterile Conditions and Chlorhexadine Laceration repair: Irrigated, Lidocaine with epi (1%, 4cc), Local, Skin sutures and Wound explored Irrigated (ml): 80 Number of Sutures/Isidoro: 9 Suture Information: Ethilon, Simple and 4-0 R hand: Length: 1.5 cm Depth: Sub Q Shape: Linear Prep: Sterile Conditions and Chlorhexadine Laceration repair: Irrigated, Lidocaine with epi (1%, 1cc), Local and Skinsutures Irrigated (ml): 30 Number of Sutures/Isidoro: 1 Suture Information: Ethilon, Horizontal, Mattress and 4-0 R volar wrist: Length: 1 cm Depth: Sub Q Shape: Linear Prep: Sterile Conditions and Chlorhexadine Laceration repair: Irrigated and Skin sutures Irrigated (ml): 30 Number of Sutures/[place]: 1 Suture Information: Ethilon, Simple and 4-0 Discharge Plan Triage Chief Complaint: Bite ED Provider: Delgado Santizo Dx/Rx/DC Orders Clinical Impression: Open wound of right wrist due to dog bite Instructions: ED Dog Bite Prescriptions: New amoxicillin-pot clavulanate [amoxicillin-pot clavulanate] 875-125 mg tablet 875 mg PO Q12H Qty: 14 0RF No Action sertraline 100 MG tablet 100 mg PO QHS omeprazole 10 MG capsule 20 mg PO DAILY bupropion HCl 150 MG tablet sustained-release 12 hr 150 mg PO DAILY sennosides [senna] 8.6 MG tablet 8.6 mg PO DAILY lisinopril-hydrochlorothiazide [Zestoretic] 1 EACH tablet 1 ea PO DAILY pravastatin 40 MG tablet 40 mg PO QHS tizanidine 4 MG tablet 4 mg PO DAILY Verapamil Hcl [Verapamil Sr] 180 MG Cap24h.Pel 270 mg PO DAILY sennosides-docusate sodium 1 TABLET tablet 2 tab PO BID Qty: 120 0RF nystatin [Nyamyc] 1 APPLIC bottle 1 applic topical BID 0RF Protocol: *Topical Application Instructions APPLICATION INSTRUCTIONS: apply under bilateral breasts ondansetron 4 MG tablet 4 mg PO Q8H PRN PRN (Reason: Nausea) Qty: 14 0RF hydrocodone-acetaminophen [hydrocodone-acetaminophen] 5-325 mg tablet 1 tab PO Q4H PRN PRN (Reason: Pain) 2 Days Qty: 10 0RF amoxicillin-pot clavulanate 875 MG tablet 875 mg PO Q12H Qty: 20 0RF hydrocodone-acetaminophen [hydrocodone-acetaminophen] 5-325 mg tablet 1 tab PO Q6H PRN PRN (Reason: Pain) 3 Days Qty: 10 0RF Primary Care Provider: Dewayne Chung Referrals: Dewayne Chung MD [Primary Care Provider] - 10-14 Days suture removal Disposition Disposition: Home, Self Care What to do if you have Problems For any increased pain, shortness of breath, bleeding, nausea or vomiting, chestpain, or any unexpected problems, contact your Primary Care Provider. Call [facility] ([phone]) or report to the closest Emergency Room. Call 911 if necessary. 10/17/22 2100 <Electronically signed by Delgado Santizo MD> Cosigner Signature (if applicable): CC: Dr. Dewayne Chung MD ~ Signed [facility] Work Phone: 1(100) 646-813007-11-2023 History of Present illness Narrative* Dewayne Chung MD - 09/08/2022 10:20 AM EDT Chief Complaint No chief complaint on file. [...] and will fall asleep multiple times through outthe day. She does snore. Patient has continued to have a cough since having suspected COVID back in 2020. Did not do a COVIDtest at the time. Does have a Hx [...] Adenoma of left adrenal gland 12/06/2018 Seen [facility] ER CT 11/28/2018 was stable in [...] SINGLE/MULTIPLE 04/01/2009 EGD TRANSORAL BIOPSY SINGLE/MULTIPLE 06/22/[address] [facility] [address] Marroquin FRACTURE SURGERY JOINT REPLACEMENT [...] nausea/ throat swelling Ibuprofen Vomiting Hematemesis - [facility] 06/21/2012 Nickel Rash Can only wear [...] rash/itching. Dewayne Chung MD documented in this encounterAdena [facility]06-27-2023 Miscellaneous Notes* Telephone Encounter - Dorian Kern APRN.CNP - 08/25/2022 3:19 PM EDT Phone call to patient to discuss results LDCT Lung Rads category 2-repeat CT in 12 mos Moderate CAC-recommend PCP/cardiology evaluation-Pt plans to call Dr. Chung. * Telephone Encounter - Dorian Kern APRN.CNP - 08/24/2022 4:28 PM EDT Left message for pt to call back regarding results. documented in this encounterAdena [facility] Center06-22-2023 History of Present illness Narrative* Negin Alex, RT(R) - 08/20/2022 1:40 PM EDT Radiology Service Progress Note PATIENT NAME: Dianne Holly DATE OF SERVICE: August 20, 2022 TIME: 3:10 PM PATIENT IDENTITY VERIFICATION COMPLETED USING TWO (2) IDENTIFIERS: Name and Date of confirmedby patient verbally. FALL SCREENING: Has the patient [...] 20, 2022 3:10 PM documented in this encounterAdena [facility] Center06-19-2023 Miscellaneous Notes* Telephone Encounter - Wanda Reyes Pss - 08/17/2022 4:34 PM EDT Left the patient a voice message and sent [employer] message about the canceled appointment and the new appointment date, time, and location. documented in this encounterAdena [facility] Center06-09-2023 History of Present illness Narrative* Yan Bell Jr., MD - 08/07/2022 2:33 PM EDT NEW PATIENT (CONSULT) HISTORY AND PHYSICAL EXAM [...] to the requesting physician by way of sharedmedical record or letter via [place] mail. HISTORY [...] until 1AM and then wakes between 9-10AM. [place] Sleepiness Scale: Sitting and readin Watching TV: [...] Adenoma of left adrenal gland 12/06/2018 Seen [facility] ER CT 11/28/2018 was stable in [...] abscess without bleeding 06/03/2016 Emphysema of lung ([facility]) 06/18/2014 Essential hypertension 11/19/2006 Gastroesophageal reflux disease [...] transcutaneous CO2. Pt agrees with plan but requestsstudy be performed at [facility]. Will order treatment based on PAP titration results with follow up approx imately 2-3 months later. Pt agrees with plan. [...] which included preparing to see the patient, [id number] patient care, completing clinical documentation, obtaining and/or reviewing separately obtained history, performing a medically appropriate examination, counseling and educating the pa tient/family/caregiver, ordering medications, tests, or procedures, and communicating results to the patient/family/caregiver. Medical Decision Making: Problems: Moderate: New problem with uncertain prognosis Data: Unique test result(s) reviewed: 2 Unique test(s) ordered: 1 Risk: Low: Low risk from testing/treatment Medical Decision Making Level: 4 - Moderate documented in this encounterAdena [facility] Center06-06-2023 Miscellaneous Notes* Telephone Encounter - ANNITA Pierre - 08/04/2022 12:03 PM EDT TC to patient as Dr. Bell has a cancellation on his schedule for this 08/07/22 for a new patient. Dianne excepted appointment and was rescheduled accordingly. ANNITA Pierre * Telephone Encounter - Lucero Rivera Pss - 08/04/2022 8:52 AM EDT Patient scheduled with Dr. Bell on , his first available in [place]. Patient does not want to travel out of town. Is this appointment date ok? documented in this encounterAdena [facility] Center06-06-2023 Miscellaneous Notes* Telephone Encounter - Kina Villegas LPN - 08/04/2022 8:42 AM EDT Pt notified of results and was transferred to schedule with sleep med. Kina Villegas LPN * Telephone Encounter - Dewayne Chung MD - 08/03/2022 10:02 PM EDT Let patient know her home study showed moderate sleep apnea. Order placed for consult to Sleep med. documented in this encounterAdena [facility] Center05-15-2023 Instructions* Patient Instructions* Allie Lemus APRN.CNP - 07/13/2022 11:24 AM EDT Keep are dry and dressing intact Follow up in 1 week documented in this encounterAdena [facility] Medical Center05-15-2023 History of Present illness Narrative* Allie Lemus APRN.CNP - 07/13/2022 11:16 AM EDT Chief Complaint Patient presents with: Follow Up: [...] Adenoma of left adrenal gland 12/06/2018 Seen [facility] ER CT 11/28/2018 was stable in size since CT done 11/2015: benign. ADRENAL NODULE 11/17/2007 Anxiety state 11/19/2006 Arthritis Benign neoplasm of colon BPPV (benign paroxysmal positional vertigo) 04/03/2015 Chronic left shoulder pain 09/17/2015 Class 3 severe obesity due to excess calories without serious comorbidity with body mass index (BMI) of 45.0 to 49.9 in adult ([facility]) 06/18/2014 DDD (degenerative disc disease), lumbar 01/15/2016 Delayed emergence from general anesthesia Diverticulitis of large intestine without perforation or abscess without bleeding 06/03/2016 Emphysema of lung ([facility]) 06/18/2014 Essential hypertension 11/19/2006 Gastroesophageal reflux disease [...] SINGLE/MULTIPLE 04/01/2009 EGD TRANSORAL BIOPSY SINGLE/MULTIPLE 06/22/[address] [facility] [address] Marroquin FRACTURE SURGERY JOINT REPLACEMENT [...] nausea/ throat swelling Ibuprofen Vomiting Hematemesis - [facility] 06/21/2012 Nickel Rash Can only wear [...] packing. Allie Lemus APRN.CNP documented in this encounterAdena [facility] Center05-11-2023 History of Present illness Narrative* Allie Lemus APRN.CNP - 07/09/2022 10:18 AM EDT Chief Complaint Patient presents with: Recheck HPI Dianne Holly is a 71 year old female who presents here today for Above Complaints.. Patient presents for ER follow up for I&D from dog bite. Patient was seen in ER on 07/06/2022 forworsening infection in her left hand from dog bite on 07/04. Patient underwent I&D on 07/06/2022 and it was packed. Patient was instructed to follow up today to have packing removed. Past medical history, appointments, medications, allergies reviewed. Previous Medical History PAST MEDICAL HISTORY Diagnosis Date Adenoma of left adrenal gland 12/06/2018 Seen [facility] ER CT 11/28/2018 was stable in size since CT done 11/2015: benign. ADRENAL NODULE 11/17/2007 Anxiety state 11/19/2006 Arthritis Benign neoplasm of colon BPPV (benign paroxysmal positional vertigo) 04/03/2015 Chronic left shoulder pain 09/17/2015 Class 3 severe obesity due to excess calories without serious comorbidity with body mass index (BMI) of 45.0 to 49.9 in adult ([facility]) 06/18/2014 DDD (degenerative disc disease), lumbar 01/15/2016 Delayed emergence from general anesthesia Diverticulitis of large intestine without perforation or abscess without bleeding 06/03/2016 Emphysema of lung ([facility]) 06/18/2014 Essential hypertension 11/19/2006 Gastroesophageal reflux disease without esophagitis 11/19/2006 Generalized osteoarthrosis, unspecified site 11/19/2006 Internal hemorrhoids Medicare annual wellness visit, initial 11/23/2017 Medicare Part B: 11/29/2016 last done: 11/16/2018 Mixed hyperlipidemia 03/19/2008 Osteoarthritis of lumbar spine 01/15/2016 Osteoarthritis of multiple joints 11/19/2006 Overactive bladder 01/16/2019 Primary osteoarthritis of right hip 09/21/2016 Primary ovarian failure 11/23/2017 Recurrent major depressive disorder, in remission ([facility]) 11/23/2017 Smoker 05/27/2010 Status post right hip [...] SINGLE/MULTIPLE 04/01/2009 EGD TRANSORAL BIOPSY SINGLE/MULTIPLE 06/22/[address] [facility] [address] Marroquin FRACTURE SURGERY JOINT REPLACEMENT [...] nausea/ throat swelling Ibuprofen Vomiting Hematemesis - [facility] 06/21/2012 Nickel Rash Can only wear [...] Patient tolerated well. Area cleansed with normal saline.4 cm antibiotic packing strip inserted to wound. Non adherent pad placed to cover wound and gauze wrap applied. Patient reported pain with insertion of packing strip but stated it was tolerable. Allie Lemus APRN.HARMONIC ANALYST documented in this encounterAdena [facility] Medical Center05-09-2023 Miscellaneous Notes* Telephone Encounter - Nettie Simms RN - 07/07/2022 3:41 PM EDT Pt called and is notified of providers message and instructions. She voices understanding. Pt reports swelling to hand and finger have gone down, she was told not to unwrap it, she she hasn't looked at the redness. Pt scheduled with Allie Lemus [facility] on 07/09. Nettie Simms RN * Telephone Encounter - Elan Guzman MD - 07/07/2022 2:32 PM EDT Yes we can remove the wick. Sometimes they give patient instructions to remove 1 cm per day until it comes out. If they told her to follow up here, would have her schedule OV. Hopefully the swelling and redness look better today. * Telephone Encounter - Paris Silva LPN - 07/07/2022 2:16 PM EDT Pt was seen in office yesterday for [...] prescribed. Paris Silva LPN documented in this encounterAdena [facility] Center05-08-2023 History of Present illness Narrative* Elan Guzman MD - 07/06/2022 4:30 PM EDT Chief Complaint Patient presents with: ED Follow-up HPI Dianne Holly is a 71 year old female who presents here today for ER Follow Up.. Accompanied today by daughter. Patient referred back to [facility] ED on 07/[address] Peterson for dog bite that was not healing on Augmentin. Bitten on 06/28. Given dose of IV unasyn and had I&D of wound. CBC and CMP unremarkable. Blood cultures obtained. Tetanus shot updated in the ED. Discharged home with Augmentin BID, Aston, and zofran. Patient states that since discharge, she has worsening redness and swelling over her left wrist andhand compared to 2 days ago. Taking abx as prescribed without side effects. Wound has stopped draining significantly from the I&D. Cites low grade fever of 99.4. Blood cultures showing no growth in 48 hours. Past medical history, appointments, medications, allergies reviewed. Previous Medical History PAST MEDICAL HISTORY Diagnosis Date Adenoma of left adrenal gland 12/06/2018 Seen [facility] ER CT 11/28/2018 was stable in size since CT done 11/2015: benign. ADRENAL NODULE 11/17/2007 Anxiety state 11/19/2006 Arthritis Benign neoplasm of colon BPPV (benign paroxysmal positional vertigo) 04/03/2015 Chronic left shoulder pain 09/17/2015 Class 3 severe obesity due to excess calories without serious comorbidity with body mass index (BMI) of 45.0 to 49.9 in adult ([facility]) 06/18/2014 DDD (degenerative disc disease), lumbar 01/15/2016 Delayed emergence from general anesthesia Diverticulitis of large intestine without perforation or abscess without bleeding 06/03/2016 Emphysema of lung ([facility]) 06/18/2014 Essential hypertension 11/19/2006 Gastroesophageal reflux disease without esophagitis 11/19/2006 Generalized osteoarthrosis, unspecified site 11/19/2006 Internal hemorrhoids Medicare annual wellness visit, initial 11/23/2017 Medicare Part B: 11/29/2016 last done: 11/16/2018 Mixed hyperlipidemia 03/19/2008 Osteoarthritis of lumbar spine 01/15/2016 Osteoarthritis of multiple joints 11/19/2006 Overactive bladder 01/16/2019 Primary osteoarthritis of right hip 09/21/2016 Primary ovarian failure 11/23/2017 Recurrent major depressive disorder, in remission ([facility]) 11/23/2017 Smoker 05/27/2010 Status post right hip [...] SINGLE/MULTIPLE 04/01/2009 EGD TRANSORAL BIOPSY SINGLE/MULTIPLE 06/22/[address] [facility] [address] Marroquin FRACTURE SURGERY JOINT REPLACEMENT [...] nausea/ throat swelling Ibuprofen Vomiting Hematemesis - [facility] 06/21/2012 Nickel Rash Can only wear [...] sepsis, loss of use of hand or evenamputation if this does not get treated quickly. Daughter will drive her now to the ED. 2. Abscess - ICD9: 682.9, ICD10: L02.91 See above. Elan Guzman MD documented in this encounterAdena [facility] Center05-08-[address] Westbrook [facility] July 06, 2022 7:41pm Note Date/Time July 06, 2022 7:14pm [facility] Medical Records Department [address] [place] [address] Emergency Department Summary 07/06/22 MR#: [id number] Acct: [id number] Name: DIANNE HOLLY Rep #:[id number] : 1950 71 From: Marcus Westbrook MD PCP: Dr. Dewayne Chung MD Status:REG ER Location: ED HPI History of Present Illness Chief Complaint: Cellulitis Detail of Chief Complaint: Dog bite left distal forearm Informant: patient Onset/Context/Timing Onset: Days (Patient was initially bit over a week ago. She was seen in the emergency room placed on antibiotics. She then returned this past weekend and had incision made.) Context: Sudden Onset Timing: Continuous Quality: At abscess dorsal side left forearm Location: Dorsal surface left forearm Current Severity: Mild Maximum Severity: Moderate Worsened by: Dog bite Relieved by: Nothing Associated Symptoms Associated Symptoms: Edema of left hand and fingers Narrative Narrative: Patient is a 71-year-old [id number] woman who sustained dog bite to thedistal left forearm. She was placed on Augmentin for prophylaxis. Patient subsequently developed infection. She had I&D performed this past weekend. Torreys because of significant swelling. The swelling occurred 24 to 48 hours prior to her presentation. Patient denies fever, chills night sweats. Patient denies history of diabetes. She is on no immunosuppressive meds. She denies paresthesia, anesthesia or motor. She states she has not been using that extremity much. Prior similar symptoms: Yes Recent Illness/Hospitalization: Yes [facility] Medical History COPD (chronic obstructive pulmonary disease) Depression GERD (gastroesophageal reflux disease) HTN (hypertension) Home Medications omeprazole 10 mg capsule,delayed release 20 mg PO DAILY GERD 07/31/13 [History Last Taken Unknown] sertraline 100 mg tablet 100 mg PO QHS Depression 07/31/13 [History Last Taken 06/24/17 21:12] Verapamil Hcl [Verapamil Sr] 270 mg PO DAILY blood pressure 06/25/17 [History Last Taken 06/24/17 21:38] bupropion HCl 150 mg tablet,12 hr sustained-release 150 mg PO DAILY Mood 06/25/17 [History Last Taken 06/25/17 08:56] lisinopril 20 mg-hydrochlorothiazide 12.5 mg tablet (Zestoretic) 1 ea PO DAILY Hypertension 06/25/17 [History Last Taken Unknown] pravastatin 40 mg tablet 40 mg PO QHS Cholestrol 06/25/17 [History Last Taken Unknown] sennosides 8.6 mg tablet (senna) 8.6 mg PO DAILY Bowel movement 06/25/17 [History Last Taken 06/25/17 08:56] tizanidine 4 mg tablet 4 mg PO DAILY Muscle relaxant 06/25/17 [History Last Taken Unknown] nystatin 100,000 unit/gram topical powder (Nyamyc) 1 applic topical BID 07/13/17[Rx Last Taken Unknown] sennosides 8.6 mg-docusate sodium 50 mg tablet 2 tab PO BID #120 tabs 07/13/17 [Rx Last Taken Unknown] ondansetron 4 mg disintegrating tablet 4 mg PO Q8H PRN PRN Nausea #14 tabs 11/28/18 [Rx Last Taken Unknown] amoxicillin 875 mg-potassium clavulanate 125 mg tablet 875 mg PO Q12H #20 tabs 07/01/22 [Rx Last Taken Unknown] hydrocodone-acetaminophen 5-325mg 5mg-325mg 1 tab PO Q4H PRN PRN Pain 2 days #10TABLETS 07/01/22 [Rx Last Taken Unknown] hydrocodone-acetaminophen 5-325mg 5mg-325mg 1 tab PO Q6H PRN PRN Pain 3 days #10TABLETS 07/06/22 [Rx Last Taken Unknown] Allergy/AdvReac Type Severity Reaction Status Date / Time nickel Allergy Hives Verified 07/04/22 08:55 ibuprofen AdvReac Other Verified 07/04/22 08:55 metronidazole [From Flagyl] AdvReac Swelling Verified 07/04/22 08:55 Surgical History History of total hip replacement Social History (Updated 07/06/22 @ 19:[address] Marcus Westbrook MD) household members: none Smoking Status: Current every day smoker tobacco type: cigarettes substance use type: does not use ROS ROS ED Constitutional Constitutional ED: Denies chills, fever(s), subjective, sweats or weight loss Cardiovascular Cardiovascular: Denies chest pain Gastrointestinal Gastrointestinal: Denies nausea or vomiting Musculoskeletal Musculoskeletal: Denies arthralgias, back pain, myalgias or neck pain Integumentary Reports abscess, Abrasions and rash Neurologic Neurologic: Denies headache(s), paresthesias or weakness Hematologic/Lymphatic Hematologic/Lymphatic: Reports systems reviewed and no addt'l complaints, exceptas documented EXAM Physical Exam Const Vital Signs: 07/06/22 17:29 Temperature 98.6 F Temperature Source Temporal Pulse Rate 82 Respiratory Rate 16 Blood Pressure 152/61 H Blood Pressure Mean 91 Pulse Ox 99 Oxygen Delivery Method Room Air Positive well nourished, well developed and obese General Appearance ED: well developed and NAD; Negative for cyanotic, diaphoretic or pallor Nutritional Appearance: obese HEENT Reports moist mucous membranes HEENT Narrative: Head is atraumatic normocephalic. Ears are normal. Nares are patent. Posterior pharynx is normal. Eyes PERRL and EOMs intact bilaterally General Eye ED: Negative for pale conjunctiva or scleral icterus Neck no lymphadenopathy, supple and no JVD Chest Wall inspection of chest normal and palpation of chest normal Resp normal respiratory effort and clear to auscultation bilaterally Cardio regular rate, regular rhythm, S1 normal heart sound, S2 normal heart sound and no murmurs Back/Spine no CVA tenderness Extremity Negative for normal to inspection Extremity Narrative: There is an abscess dorsal surface of the left forearm. Puncture wounds noted from dog bite. There is slight discoloration. There is no lymphangitis. Thereis no epitrochlear lymphadenopathy. Patient does have dependent edema of her hand due to lack of use. Neuro oriented x3, CN's II-XII intact bilaterally and no sensory deficits noted Neuro Narrative: Median, radial and ulnar intact. Sensorium / Orientation: alert Psych mental status grossly normal Skin no rashes or lesions noted, no wounds and skin turgor normal General Skin Exam: Negative for jaundice or pallor Wounds: wounds noted MDM MDM MDM Narrative Medical decision making narrative: Patient inquired why she was not receiving IV antibiotic. She was informed IV antibiotics to treat abscesses. Abscesses were treated with incision and drainage. She also asked if I would be changing her antibiotic. I informed herthere was no need to change her antibiotics. Antibiotics do not treat abscesses. Abscesses are treated with incision and drainage. Presently there is no evidence of cellulitis. Therefore, per the literature there is no indication for antibiotics. Procedures Other Procedures Procedure(s): 1. I&D: Patient was consented for I&D of abscess due to dog bite dorsal surface left forearm. Patient explained risk benefits and complication potential complications. She gave verbal consent. Patient was prepped draped sterile fashion. The area was Nestabs by local infiltration and field block. After waiting 1 to 2 minutes an incision was madeusing a 10 blade. Incision is 2-1/2 cm in length. There is significant mount of purulent material that flowed from the wound. Blunt dissection was undertaken with more purulent material noted. Cavity was irrigated. Wick was placed. Patient was instructed to continue taking antibiotics and follow-up in 2 to 3 days to have wick removed. Patient was asked if she had any questions. Her questions were answered. Discharge Plan Triage Chief Complaint: Cellulitis ED Provider: Marcus Westbrook Dx/Rx/DC Orders Clinical Impression: Abscess of forearm, left, Infected dog bite of forearm Instructions: ED Abscess Incision And Drainage Prescriptions: New hydrocodone-acetaminophen [hydrocodone-acetaminophen] 5-325 mg tablet 1 tab PO Q6H PRN PRN (Reason: Pain) 3 Days Qty: 10 0RF No Action sertraline 100 MG tablet 100 mg PO QHS omeprazole 10 MG capsule 20 mg PO DAILY bupropion HCl 150 MG tablet sustained-release 12 hr 150 mg PO DAILY sennosides [senna] 8.6 MG tablet 8.6 mg PO DAILY lisinopril-hydrochlorothiazide [Zestoretic] 1 EACH tablet 1 ea PO DAILY pravastatin 40 MG tablet 40 mg PO QHS tizanidine 4 MG tablet 4 mg PO DAILY Verapamil Hcl [Verapamil Sr] 180 MG Cap24h.Pel 270 mg PO DAILY sennosides-docusate sodium 1 TABLET tablet 2 tab PO BID Qty: 120 0RF nystatin [Nyamyc] 1 APPLIC bottle 1 applic topical BID 0RF Protocol: *Topical Application Instructions APPLICATION INSTRUCTIONS: apply under bilateral breasts ondansetron 4 MG tablet 4 mg PO Q8H PRN PRN (Reason: Nausea) Qty: 14 0RF hydrocodone-acetaminophen [hydrocodone-acetaminophen] 5-325 mg tablet 1 tab PO Q4H PRN PRN (Reason: Pain) 2 Days Qty: 10 0RF amoxicillin-pot clavulanate 875 MG tablet 875 mg PO Q12H Qty: 20 0RF Primary Care Provider: Dewayne Chung Referrals: Dewayne Chung MD [Primary Care Provider] - Activity Restrictions/Additional Instructions: Follow-up with your doctor in 2 to 3 days to have wick removed Elevate your hand above your nose to decrease swelling and increased use of yourleft hand Continue taking antibiotics you were prescribed until gone Disposition Disposition: Home, Self Care What to do if you have Problems For any increased pain, shortness of breath, bleeding, nausea or vomiting, chestpain, or any unexpected problems, contact your Primary Care Provider. Call [facility] ([phone]) or report to the closest Emergency Room. Call 911 if necessary. 07/06/221940 <Electronically signed by Marcus Westbrook MD> Cosigner Signature (if applicable): CC: Dr. Dewayne Chung MD ~ Signed [facility] Work Phone: 1(269) 262-596405-08-2023 Hospital Discharge instructions Additional Instructions Follow-up with your doctor in 2 to 3 days to have wick removed Elevate your hand above your nose to decrease swelling and increased use of your left hand Continue [facility]: 1(788) 381-582505-06-2023 History of Present illness Narrative* Yan Peterson MD - 07/04/2022 8:13 AM EDT Patient presents with: Follow Up: ER follow up for dog bite HPI: Patient presents today for office visit for ER follow up. Seen at [facility] ER on 07/01. Had dog bite by her dog three days before that. She declined tetanus until seen by us. Was given dose of IV unasyn and then placed on augmentin. Is looking worse. Wrist is morewarm and red and now with a lump [...] nausea/ throat swelling Ibuprofen Vomiting Hematemesis - [facility] 06/21/2012 Nickel Rash Can only wear gold earrings PAST MEDICAL HISTORY Diagnosis Date Adenoma of left adrenal gland 12/06/2018 Seen [facility] ER CT 11/28/2018 was stable in size since CT done 11/2015: benign. ADRENAL NODULE 11/17/2007 Anxiety state 11/19/2006 Arthritis Benign neoplasm of colon BPPV (benign paroxysmal positional vertigo) 04/03/2015 Chronic left shoulder pain 09/17/2015 Class 3 severe obesity due to excess calories without serious comorbidity with body mass index (BMI) of 45.0 to 49.9 in adult ([facility]) 06/18/2014 DDD (degenerative disc disease), lumbar 01/15/2016 Delayed emergence from general anesthesia Diverticulitis of large intestine without perforation or abscess without bleeding 06/03/2016 Emphysema of lung ([facility]) 06/18/2014 Essential hypertension 11/19/2006 Gastroesophageal reflux disease without esophagitis 11/19/2006 Generalized osteoarthrosis, unspecified site 11/19/2006 Internal hemorrhoids Medicare annual wellness visit, initial 11/23/2017 Medicare Part B: 11/29/2016 last done: 11/16/2018 Mixed hyperlipidemia 03/19/2008 Osteoarthritis of lumbar spine 01/15/2016 Osteoarthritis of multiple joints 11/19/2006 Overactive bladder 01/16/2019 Primary osteoarthritis of right hip 09/21/2016 Primary ovarian failure 11/23/2017 Recurrent major depressive disorder, in remission ([facility]) 11/23/2017 Smoker 05/27/2010 Status post right hip [...] SINGLE/MULTIPLE 04/01/2009 EGD TRANSORAL BIOPSY SINGLE/MULTIPLE 06/22/[address] [facility] [address] Marroquin FRACTURE SURGERY JOINT REPLACEMENT [...] Never Tobacco comments: recently cut back to 12 ppd Vaping Use Vaping Use: Never used Substance Use Topics Alcohol use: Yes Comment: rare Drug use: No Reviewed current medications, allergies, past medical history, surgical history, family history andsocial history today. REVIEW OF SYSTEMS All other [...] ER passport placed for hand off to [facility] ER 2. Dog bite, subsequent encounter - ICD9: V58.89, 879.8, ICD10: W54.0XXD Yan Peterson MD documented in this encounterAdena [facility] Center05-03-[address] Santizo [facility] July 01, 2022 10:48pm Note Date/Time July 01, 2022 10:42p m [facility] Medical Records Department [address] [place] [address] Emergency Department Summary 07/01/22 MR#: [id number] Acct: [id number] Name: DIANNE HOLLY Rep #:[id number] : 1950 71 From: Delgado Santizo MD PCP: Dr. Dewayne Chung MD Status:PRE ER Location: ED ADDENDUM by Dr. Delgado Santizo MD on 07/01/22 at 2248 Patient does not remember when her last tetanus was. She declines an offer to update it now and prefers to follow-up with her doctor regarding this, which I think is fine. She was advised that if she has not had 1 in the last 5 years, she should probably have an update. 07/01/228<Electronically signed by Delgado Santizo MD> Cosigner Signature (if applicable): cc: Dr. Dewayne Chung MD ~* Signed HPI History of Present Illness Chief Complaint: Bite Informant: patient Narrative Narrative: Bit in the left wrist by her dog 3 days ago. She cleaned it and thought it would get better but it has continuously gotten worse. It is warm, red. She denies any fevers, chills, systemic symptoms. No pain elsewhere. Diftu-nwud-pdpvzruw. She states the dog is not ill, it was upset with her because she pushed the dog on its but, and it turned around startled and bit her. PFSH PFSH Home Medications omeprazole 10 mg capsule,delayed release 20 mg PO DAILY GERD 07/31/13 [History Last Taken Unknown] sertraline 100 mg tablet 100 mg PO QHS Depression 07/31/13 [History Last Taken 06/24/17 21:12] Verapamil Hcl [Verapamil Sr] 270 mg PO DAILY blood pressure 06/25/17 [History Last Taken 06/24/17 21:38] bupropion HCl 150 mg tablet,12 hr sustained-release 150 mg PO DAILY Mood 06/25/17 [History Last Taken 06/25/17 08:56] lisinopril 20 mg-hydrochlorothiazide 12.5 mg tablet (Zestoretic) 1 ea PO DAILY Hypertension 06/25/17 [History Last Taken Unknown] pravastatin 40 mg tablet 40 mg PO QHS Cholestrol 06/25/17 [History Last Taken Unknown] sennosides 8.6 mg tablet (senna) 8.6 mg PO DAILY Bowel movement 06/25/17 [History Last Taken 06/25/17 08:56] tizanidine 4 mg tablet 4 mg PO DAILY Muscle relaxant 06/25/17 [History Last Taken Unknown] nystatin 100,000 unit/gram topical powder (Nyamyc) 1 applic topical BID 07/13/17[Rx Last Taken Unknown] sennosides 8.6 mg-docusate sodium 50 mg tablet 2 tab PO BID #120 tabs 07/13/17 [Rx Last Taken Unknown] ondansetron 4 mg disintegrating tablet 4 mg PO Q8H PRN PRN Nausea #14 tabs 11/28/18 [Rx Last Taken Unknown] amoxicillin 875 mg-potassium clavulanate 125 mg tablet 875 mg PO Q12H #20 tabs 07/01/22 [Rx Last Taken Unknown] hydrocodone-acetaminophen 5-325mg 5mg-325mg 1 tab PO Q4H PRN PRN Pain 2 days #10TABLETS 07/01/22 [Rx Last Taken Unknown] Allergy/AdvReac Type Severity Reaction Status Date / Time nickel Allergy Hives Verified 07/01/22 20:43 ibuprofen AdvReac Other Verified 07/01/22 20:43 metronidazole [From Flagyl] AdvReac Swelling Verified 07/01/22 20:43 Social History Smoking Status: Current every day smoker tobacco type: cigarettes ROS ROS ED Constitutional Constitutional ED: Denies chills or fever(s) Musculoskeletal Musculoskeletal: Reports extremity pain; Denies neck pain Integumentary Reports wounds; Denies Abrasions or rash Neurologic Neurologic: Denies paresthesias or weakness EXAM Physical Exam Const Vital Signs: 07/01/22 20:40 Temperature 98.0 F Temperature Source Temporal Pulse Rate 85 Respiratory Rate 18 Blood Pressure 143/90 H Blood Pressure Mean 107 Pulse Ox 98 Oxygen Delivery Method Room Air Positive well nourished and well developed General Appearance ED: well developed and NAD Neck full ROM and supple Back/Spine normal ROM and normal to inspection Extremity Extremity Narrative: Bite wounds with cellulitis to the left dorsal wrist, there are small wounds that are scabbed also in the volar aspect but it does not appear cellulitic although it is sore as well. Limited range of motion of the wrist but she is able to do short arc range of motion without significant discomfort. No bony tenderness. Also full range of motion of the fingers, but she is somewhat limited by pain there. All compartments are soft and nondistended including thethenar and hypothenar eminence. Full range of motion of the elbow and shoulder without difficulty. No lymphangitis. Cellulitis is mild and there is no abscess. There is no epitrochlear or axillary lymphadenopathy. Neuro oriented x3, no focal motor deficits and no sensory deficits noted Sensorium / Orientation: alert Psych mental status grossly normal and thought process normal Skin Skin Narrative: Mild cellulitis and tenderness surrounding puncture wound to left dorsal wrist, no abscess. The wounds appear fairly superficial, but I cannot rule out the possibility of punctures, they are all scabbed and without discharge or bleeding. MDM MDM MDM Narrative Medical decision making narrative: Patient does not need any of this opened up or cored out, there is no abscess and the cellulitis looks mild but her pain is worse than the cellulitis appears. She does not have compartment syndrome clinically. She is given IV Unasyn, pain medication, splint to use as needed for pain, and prescriptions for both Augmentin and Aston to use as needed for pain. Discharge Plan Triage Chief Complaint: Bite ED Provider: Delgado Santizo Dx/Rx/DC Orders Clinical Impression: Dog bite of left wrist with infection Instructions: ED Dog Bite Prescriptions: New hydrocodone-acetaminophen [hydrocodone-acetaminophen] 5-325 mg tablet 1 tab PO Q4H PRN PRN (Reason: Pain) 2 Days Qty: 10 0RF Continued sertraline 100 MG tablet 100 mg PO QHS omeprazole 10 MG capsule 20 mg PO DAILY bupropion HCl 150 MG tablet sustained-release 12 hr 150 mg PO DAILY sennosides [senna] 8.6 MG tablet 8.6 mg PO DAILY lisinopril-hydrochlorothiazide [Zestoretic] 1 EACH tablet 1 ea PO DAILY pravastatin 40 MG tablet 40 mg PO QHS tizanidine 4 MG tablet 4 mg PO DAILY Verapamil Hcl [Verapamil Sr] 180 MG Cap24h.Pel 270 mg PO DAILY sennosides-docusate sodium 1 TABLET tablet 2 tab PO BID Qty: 120 0RF nystatin [Nyamyc] 1 APPLIC bottle 1 applic topical BID 0RF Protocol: *Topical Application Instructions APPLICATION INSTRUCTIONS: apply under bilateral breasts ondansetron 4 MG tablet 4 mg PO Q8H PRN PRN (Reason: Nausea) Qty: 14 0RF amoxicillin-pot clavulanate 875 MG tablet 875 mg PO Q12H Qty: 20 0RF Discontinued fyoduqvo-zimvdoswc-FO 3.5-10,000-1 mg/mL-unit/mL-% drops,suspension 4 drp RIGHT EAR TID 5 Days Qty: 10 0RF Primary Care Provider: Dewayne Chung Referrals: Dewayne Chung MD [Primary Care Provider] - 3-5 Days if not improving (Or return to the ER if getting worse) Disposition Disposition: Home, Self Care What to do if you have Problems For any increased pain, shortness of breath, bleeding, nausea or vomiting, chestpain, or any unexpected problems, contact your Primary Care Provider. Call [facility] ([phone]) or report to the closest Emergency Room. Call 911 if necessary. 07/01/22 [id number] <Electronically signed by Delgado Santizo MD> Cosigner Signature (if applicable): CC: Dr. Dewayne Chung MD ~ Signed [facility] Work Phone: 1(387) 547-730705-02-2023 Miscellaneous Notes* Telephone Encounter - Dewayne Chung MD - 06/30/2022 11:03 AM EDT The following approved medication requests have been transmitted electronically. Requested Prescriptions Signed Prescriptions Disp Refills fluticasone furoate (ARNUITY ELLIPTA) 100 mcg/actuation inhaler 1 Each 5 Sig: Inhale 1 Puff as instructed once daily. Do a quick inhalation prior to brushing teeth. Then brush teeth, rinse, gargle and spit. Authorizing Provider: DEWAYNE CHUNG MD * Telephone Encounter - Naomy Jones Ma - 06/30/2022 8:30 AM EDT Patient was notified and was not using Arnuity Ellipta till after office appointment decided to restart. Since restarting advised cough has subsided and feels better. Patient aware she needs to stay on this for control of symptoms and refills will be sent. Please send pended rx to [facility] Naomy Jones Ma * Telephone Encounter - Dewayne Chung MD - 06/29/2022 8:34 PM EDT Let patient know her breathing test shows mild emphysema/COPD. She if she is taking her Arnuity Ellipta inhaler one puff daily. Her last script was 12/08/2021 for4 months and should of needed a new refill as of early Apr. Not taking this daily could explain whyshe has the persistent cough. documented in this encounterAdena [facility] Medical Center04-28-2023 History of Present illness Narrative* Nathan Clarke, MIRI - 06/26/2022 1:26 PM EDT PULM FUNCTION SMARTBLOCK: Provider: Dewayne Chung MD Assisting Tech: DWAINE Rodriguez Spirometry w/BD: 1 documented in this encounterAdena Regional Medical Center04-26-2023 History of Present illness Narrative* Dorian KernWING.HARMONIC ANALYST - 06/24/2022 11:10 AM EDT Images from the original note were not [...] pre-disease performance w/o restriction. Modified Medical Research [place] Dyspnea Scale (MMRC) I only get breathless with strenous exercise 0 PAST MEDICAL HISTORY Diagnosis Date Adenoma of left adrenal gland 12/06/2018 Seen [facility] ER CT 11/28/2018 was stable in size since CT done 11/2015: benign. ADRENAL NODULE 11/17/2007 Anxiety state 11/19/2006 Arthritis Benign neoplasm of colon BPPV (benign paroxysmal positional vertigo) 04/03/2015 Chronic left shoulder pain 09/17/2015 Class 3 severe obesity due to excess calories without serious comorbidity with body mass index (BMI) of 45.0 to 49.9 in adult ([facility]) 06/18/2014 DDD (degenerative disc disease), lumbar 01/15/2016 Delayed emergence from general anesthesia Diverticulitis of large intestine without perforation or abscess without bleeding 06/03/2016 Emphysema of lung ([facility]) 06/18/2014 Essential hypertension 11/19/2006 Gastroesophageal reflux disease without esophagitis 11/19/2006 Generalized osteoarthrosis, unspecified site 11/19/2006 Internal hemorrhoids Medicare annual wellness visit, initial 11/23/2017 Medicare Part B: 11/29/2016 last done: 11/16/2018 Mixed hyperlipidemia 03/19/2008 Osteoarthritis of lumbar spine 01/15/2016 Osteoarthritis of multiple joints 11/19/2006 Overactive bladder 01/16/2019 Primary osteoarthritis of right hip 09/21/2016 Primary ovarian failure 11/23/2017 Recurrent major depressive disorder, in remission ([facility]) 11/23/2017 Smoker 05/27/2010 Status post right hip [...] SINGLE/MULTIPLE 04/01/2009 EGD TRANSORAL BIOPSY SINGLE/MULTIPLE 06/22/[address] [facility] [address] Marroquin FRACTURE SURGERY JOINT REPLACEMENT [...] nausea/ throat swelling Ibuprofen Vomiting Hematemesis - [facility] 06/21/2012 Nickel Rash Can only wear [...] Testing: SPIROMETRY - BASELINE AND POST DILATOR ([id number]) - ordered on 11/10/[facility] [address] [place] [address] Test Date: 2019-11-10 Pat Name: DIANNE HOLLY Department: Room: Gender: Female Special Diet Cook: NATHAN More : 1950 Requested By: Rakel CHUNG Order Number: [id number] Reading MD: Levi Simmons Interpretive Statements 2 [...] EDT by Levi Simmons Site: WO ID: [id number] Name: DIANNE HOLLY Visit Date: 11/10/2019 Second ID: [id number] Referring Doctor: Rakel CHUNG Special Diet Cook: NATHAN More Age: 68 : 1950 Sex: Female Race: Height: 63.00 Inches Weight: 266.00 Lbs BSA: 2.18 Order IDs: [id number] Requested Test(s): Spirometry - baselline and post [...] follow-up diagnostic testing, over-diagnosis, false positive rate, andtotal radiation exposure. The patient understands and feels comfortable with it: Yes. The patient was counseled on the importance of adherence to annual LDCT lung cancer screening, impact of comorbidities and ability or willingness to undergo diagnosis and treatment. The patient understands and feels comfortable with it:Yes. 2. Nicotine dependence: The patient was counseled on the importance of smoking cessation if currentsmoker and, if appropriate, offered additional tobacco cessation [...] 24, 2022 11:21 AM documented in this encounterAdena Regional Medical Center04-26-2023 Instructions* Patient Instructions* Dorian Kern APRN.CNP - 06/24/2022 11:08 AM [...] no harm to you at all. A specialistwill make a scientific evaluation about whether or [...] to endocrinology. Others Lung Cancer Screening hotline: [phone] Lung Cancer Screening [phone] Billing Questions: or [email or web address] Lung Cancer Screening Team: Nettie Allen CNP; Carolina Valdez PA-C; Negin Knight CNP; Love Davison CNP, Winnie Colon PA-C, Yadira Spivey PA-C, Dorian Kern, HARMONIC ANALYST : [phone] documented in this encounterAdena Regional Medical Center04-20-2023 Miscellaneous Notes* Telephone Encounter - Carl Bryant MA - 06/18/2022 11:40 AM EDT Patient notified and voiced understanding. Carl Bryant MA * Telephone Encounter - Dewayne Chung MD - 06/18/2022 11:06 AM EDT Let patient know B12, electrolytes, liver functions, [...] labs in a week. documented in this encounterAdena Regional Medical Center04-17-2023 History of Present illness Narrative* May Villanueva, RT(R) - 06/15/2022 4:10 PM EDT Radiology Service Progress Note PATIENT NAME: Dianne Holly DATE OF SERVICE: June 15, 2022 TIME: 4:18 PM PATIENT IDENTITY VERIFICATION COMPLETED USING TWO (2) IDENTIFIERS: Name and Date of confirmedby patient verbally. FALL SCREENING: Has the patient [...] RT Shelli(R) June 15, 2022 4:18 PM documented in this encounterAdena Regional Medical Center04-17-2023 History of Present illness Narrative* Dewayne Chung MD - 06/15/2022 2:38 PM EDT Chief Complaint Multiples issues HPI Dianne Holly [...] and will fall asleep multiple times through outthe day. She does snore. Patient has continued to have a cough since having suspected COVID back in 2020. Did not do a COVIDtest at the time. Does have a Hx [...] exposed to others with similar symptoms. Cough isproductive. Patient smokes 1/2 ppd. She reports urinary [...] Adenoma of left adrenal gland 12/06/2018 Seen [facility] ER CT 11/28/2018 was stable in size since CT done 11/2015: benign. ADRENAL NODULE 11/17/2007 Anxiety state 11/19/2006 Arthritis Benign neoplasm of colon BPPV (benign paroxysmal positional vertigo) 04/03/2015 Chronic left shoulder pain 09/17/2015 Class 3 severe obesity due to excess calories without serious comorbidity with body mass index (BMI) of 45.0 to 49.9 in adult ([facility]) 06/18/2014 Current use of proton pump inhibitor 11/23/2017 Mg checked 04/2018 DDD (degenerative disc disease), lumbar 01/15/2016 Delayed emergence from general anesthesia Diverticulitis of large intestine without perforation or abscess without bleeding 06/03/2016 Emphysema of lung ([facility]) 06/18/2014 Essential hypertension 11/19/2006 Gastroesophageal reflux disease without esophagitis 11/19/2006 Generalized osteoarthrosis, unspecified site 11/19/2006 Internal hemorrhoids Medicare annual wellness visit, initial 11/23/2017 Medicare Part B: 11/29/2016 last done: 11/16/2018 Mixed hyperlipidemia 03/19/2008 Osteoarthritis of lumbar spine 01/15/2016 Osteoarthritis of multiple joints 11/19/2006 Overactive bladder 01/16/2019 Primary osteoarthritis of right hip 09/21/2016 Primary ovarian failure 11/23/2017 Recurrent major depressive disorder, in remission ([facility]) 11/23/2017 Smoker 05/27/2010 Status post right hip [...] SINGLE/MULTIPLE 04/01/2009 EGD TRANSORAL BIOPSY SINGLE/MULTIPLE 06/22/[address] [facility] [address] Marroquin FRACTURE SURGERY JOINT REPLACEMENT [...] nausea/ throat swelling Ibuprofen Vomiting Hematemesis - [facility] 06/21/2012 Nickel Rash Can only wear [...] Adult) Pulse 76 Ht 158.8 cm (5' 2.5) Wt 120.2 kg (265 lb) BMI 47.70 kg/m General Appearance: Well appearing, alert, in no acute distress, well-hydrated, well nourished. andMorbidly obese. Neck: Supple, no adenopathy; thyroid symmetric, [...] which included preparing to see the patient, uoha-jh-hlmt patient care, completing clinical documentation, performing a medically appropriate examination, counseling and educating the patient/family/caregiver and ordering medications, tests, or procedures. Dewayne Chung MD documented in this encounterAdena Regional Medical Center04-13-2023 Miscellaneous Notes* Telephone Encounter - Kina Villegas LPN - 06/11/2022 11:18 AM EDT RX INSTRUCTIONS: Patient is out of medication and asking for approval today. Last refills 12/08/21 Qty: 90 with 1 refill [facility] 12/08/21 NOV 06/15/21 Kina Villegas LPN * Telephone Encounter - Stephy Jeff - 06/11/2022 11:12 AM EDT Patient has been identified by name and [...] notify patient. Stephy Jeff documented in this encounterAdena Regional Medical Center11-08-2022 Instructions* Patient Instructions* Dewayne Tomas APRN.HARMONIC ANALYST - 01/06/2022 8:01 PM EST How to Manage Common Symptoms Associated with COVID for Adults Fever- Fever is a temperature over 100.4 F and can occur when the body is fighting an infection. Tohelp treat a fever: Drink plenty of fluids [...] your chest such as Vicks, which can helpreduce cough. Try cough drops. Avoid smoking and other strong odors or perfumes. Try breathing exercises to keep your lungs open and clear. Take a big deep breath through your noseand hold for 5 seconds before slowly releasing. [...] of water every 10-15 minutes and increase astolerated. You can try sucking an ice cube [...] or concerning to you. documented in this encounterAdena Regional Medical Center11-08-2022 History of Present illness Narrative* Dewayne Tomas APRN.CNP - 01/06/2022 7:49 PM EST Subjective HPI Nontoxic-appearing female presents urgent care chief complaint cough chest congestion. Duration of symptoms 1 week. Associated symptoms cough chest congestion. Patient states increased sputum production and slight increase shortness of breath. No known sick contacts. Has been using Mucinex this is h elped some. Has been using rescue inhaler more [...] 118.8 kg (262 lb) SpO2 95% BMI 46.41kg/m .Patient presents with: Chest Congestion: cough, sob x 1 week PAST MEDICAL HISTORY Diagnosis Date Adenoma of left adrenal gland 12/06/2018 Seen [facility] ER CT 11/28/2018 was stable in size since CT done 11/2015: benign. ADRENAL NODULE 11/17/2007 Anxiety state 11/19/2006 Arthritis Benign neoplasm of colon BPPV (benign paroxysmal positional vertigo) 04/03/2015 Chronic left shoulder pain 09/17/2015 Class 3 severe obesity due to excess calories without serious comorbidity with body mass index (BMI) of 45.0 to 49.9 in adult ([facility]) 06/18/2014 Current use of proton pump inhibitor 11/23/2017 Mg checked 04/2018 DDD (degenerative disc disease), lumbar 01/15/2016 Delayed emergence from general anesthesia Diverticulitis of large intestine without perforation or abscess without bleeding 06/03/2016 Emphysema of lung ([facility]) 06/18/2014 Essential hypertension 11/19/2006 Gastroesophageal reflux disease [...] SINGLE/MULTIPLE 04/01/2009 EGD TRANSORAL BIOPSY SINGLE/MULTIPLE 06/22/[address] [facility] [address] Marroquin FRACTURE SURGERY JOINT REPLACEMENT [...] Never Tobacco comments: recently cut back to 2 ppd Vaping Use Vaping Use: Never used [...] any new, worsening, or symptoms lasting longer thananticipated. The patient's clinical presentation is otherwise unremarkable at this time. Based on exam and clinical finding, the patient is stable for discharge. Plan of care was discussed with patient. Patient verbalizes understanding and agrees to plan of care. This note was generated using Excelsoft software. It may contain errors in wording, punctuation, or spelling. Dewayne Tomas APRN.STEPHANI documented in this encounterAdena Regional Medical Center10-19-2022 Miscellaneous Notes* Telephone Encounter - Sayra Valencia LPN - 12/17/2021 3:29 PM EDT Spoke with pt and information listed below given. Pt verbalizes understanding. Sayra Valencia LPN * Telephone Encounter - BARB Pierre - 12/17/2021 2:44 PM EDT TC to patient who is unavailable. Daughter to give patient message to call office to receive update. BARB Pierre * Telephone Encounter - Padmini Solorzano PA-C - 12/17/2021 2:29 PM EDT Let patient know that I will send in ativan 1mg to take up to 3 times a day. She can initially cut the tablets in half to see if 0.5mg works for her and only take as needed. Padmini Solorzano PA-C * Telephone Encounter - Sayra Valencia LPN - 12/17/2021 2:18 PM EDT Pt calling and states she is having panic attacks. Her sister is ill and today they are going to pull the plug on her. Pt states this is hard for her. Pt asking if she could have xanax called to her pharmacy. This was discussed with Padmini at prior apt. Please advise pt. Sayra Valencia LPN documented in this encounterAdena Regional Medical Center10-13-2022 Miscellaneous Notes* Telephone Encounter - Eleanor Cuevas RN - 2021 11:42 AM EDT Patient returned call and given provider's message below. Kellie Cueavs RN * Telephone Encounter - Lucina Broderick Cma - 2021 10:07 AM EDT Left message for patient to return call to office Lucina Broderick Cma * Telephone Encounter - Padmini Solorzano PA-C - 2021 8:48 AM EDT Let patient know that urine didn't show a true infection, only small amount of bacteria that was insignificant amount. If her symptoms worsen, change, or don't go away, please let me know. Padmini Solorzano PA-C documented in this encounterAden[facility]10-11-2022 Miscellaneous Notes* Telephone Encounter - Nazia Youssef Ma - 12/09/2021 10:11 AM EDT Call to pt and notified her of message below. Pt will be coming into the lab today around 12 pm to r do the Urine testing. Nazia Youssef Ma * Telephone Encounter - Padmini Solorzano PA-C - 12/09/2021 9:06 AM EDT Let patient know that her labs are normal. Once she is able to get urine sample, we will contact her with those results. Padmini Solorzano PA-C documented in this encounterAdena [facility] Center10-11-2022 Miscellaneous Notes* Telephone Encounter - Padmini Solorzano PA-C - 12/09/2021 7:56 AM EDT Order placed. * Telephone Encounter - Debi Montoya - 12/08/2021 4:52 PM EDT Pt had trouble with urine sample today. May need new orders place for urine tests. She is coming back in 12/09/21 to do them again. documented in this encounterAdena [facility] Center10-10-2022 History of Present illness Narrative* Padmini Solorzano PA-C - 12/08/2021 12:44 PM EDT Chief Complaint Patient presents with: 6 Month Exam HPI Dianne Holly is a 70 year old female who presents here today for Chronic Medical Conditions.. Patient with hx of HTN, hyperlipidemia, COPD, Depression, GERD, obesity, smoker, BPPV, OA, DDD, OAB, b12 def, and those as below. Patient has had cough for the past week. Has been exposed to others with similar symptoms. Cough isproductive. Patient smokes 1/2 ppd. She reports urinary [...] Adenoma of left adrenal gland 12/06/2018 Seen [facility] ER CT 11/28/2018 was stable in [...] SINGLE/MULTIPLE 04/01/2009 EGD TRANSORAL BIOPSY SINGLE/MULTIPLE 06/22/[address] [facility] [address] Marroquin FRACTURE SURGERY JOINT REPLACEMENT [...] nausea/ throat swelling Ibuprofen Vomiting Hematemesis - [facility] 06/21/2012 Nickel Rash Can only wear [...] right total hip replacement Z96.641 (Patient not taking:Reported on 12/08/2021) No current facility-administered medications on [...] SCREENING Padmini Solorzano PA-C documented in this encounterAdena [facility] Center07-19-2022 Instructions* Patient Instructions* Nettie Sanchez PA-C - 09/16/2021 2:45 PM EDT The following instructions are important for you related to your office visit today with the [facility] General Surgeons. INSTRUCTIONS FOLLOWING A POLYP FOUND AT COLONOSCOPY You were found to have adenomatous colon polyps. I recommend you undergo repeat endoscopy in 3-5 years. If you note bleeding, change in bowel habits, or other suspicious colon related symptoms beforethat time, those symptoms should be evaluated as [...] you should contact our office immediately @ [phone] and ask to be transferred to the General Surgery department. documented in this encounterAdena [facility] Medical Center07-19-2022 History of Present illness Narrative* Nettie Sanchez PA-C - 09/16/2021 2:10 PM EDT FOLLOW UP VISIT - ENDOSCOPY NAME: Dianne Holly [facility] NO.: [id number] DATE OF SERVICE: 09/16/2021 : 1950 REFERRING PHYSICIAN: Dewayne Chung MD Dianne is a patient I am following with Dr. Corral for history of colon polyps. Dr. Corral performed lower endoscopy on 07/24/21. The patient was found to have sigmoid diverticulosis, hemorrhoids,as well as two small polyps in the [...] with the patient, and the patient has hadthe opportunity to ask questions and have questions [...] which included preparing to see the patient, [id number] patient care, completing clinical documentation, obtaining and/or reviewing separately obtained history, communicating with other HCPs (not separately reported), independently interpret ing results (not separately reported) and communicating results to the patient/family/caregiver. Nettie Sanchez PA-C documented in this encounterAdena [facility] Center05-26-2022 Nurse Note* Marissa Santiago RN - 07/24/2021 10:05 AM EDT Abdomen soft. Patient passing flatus. Patient denies discomfort. Marissa Santiago RN * Marissa Santiago RN - 07/24/2021 9:48 AM EDT Arrived in phase II via cart. Left lateral position. Sedated, but responds to verbal stimuli. Colornormal; skin warm and dry. Respirations wnl and unlabored. Abdomen soft and with + bowel sounds in quads X 4. Patient resting comfortably. Dr. Corral at bedside to review procedure and recommendations. Marissa Santiago RN documented in this encounterAdena [facility] Medical Center05-26-2022 History and physical note * Douglas Corral MD - 07/24/2021 9:30 AM EDT Images from the original note were not included. HISTORY AND PHYSICAL Dianne Merida Avni 1950 REFERRING PHYSICIAN: Padmini Solorzano PA-C CHIEF COMPLAINT: Consult (colonoscopy) HPI: The patient is a 70 year old female referred for endoscopy. Dianne notes the following GI complaints: Dianne denies abdominal pain.. Dianne denies diarrhea. Dianne notes constipation. Dianne notes occasional a change in bowel habits. Dianne denies melena. Dianne denies bright redblood per rectum. Dianne notes hemorrhoids. The patient [...] Adenoma of left adrenal gland 12/06/2018 Seen [facility] ER CT 11/28/2018 was stable in size since CT done 11/2015: benign. ADRENAL NODULE 11/17/2007 Anxiety state 11/19/2006 Benign neoplasm of colon BPPV (benign paroxysmal positional vertigo) 04/03/2015 Chronic left shoulder pain 09/17/2015 Class 3 severe obesity due to excess calories without serious comorbidity with body mass index (BMI) of 45.0 to 49.9 in adult ([facility]) 06/18/2014 Current use of proton pump inhibitor 11/23/2017 Mg checked 04/2018 DDD (degenerative disc disease), lumbar 01/15/2016 Diverticulitis of large intestine without perforation or abscess without bleeding 06/03/2016 Emphysema of lung ([facility]) 06/18/2014 Essential hypertension 11/19/2006 Gastroesophageal reflux disease without esophagitis 11/19/2006 Generalized osteoarthrosis, unspecified site 11/19/2006 Internal hemorrhoids Medicare annual wellness visit, initial 11/23/2017 Medicare Part B: 11/29/2016 last done: 11/16/2018 Mixed hyperlipidemia 03/19/2008 Osteoarthritis of lumbar spine 01/15/2016 Osteoarthritis of multiple joints 11/19/2006 Overactive bladder 01/16/2019 Primary osteoarthritis of right hip 09/21/2016 Primary ovarian failure 11/23/2017 Recurrent major depressive disorder, in remission ([facility]) 11/23/2017 Smoker 05/27/2010 Status post right hip replacement 10/01/2017 Venous insufficiency (chronic) (peripheral) 10/16/2014 Vertigo 06/14/2017 PAST SURGICAL HISTORY PAST SURGICAL HISTORY Procedure Laterality Date ARTHROSCOPY KNEE DIAGNOSTIC W/WO SYNOVIAL BX SPX 2001 Arthroscopy, knee right ARTHRP ACETBLR/PROX FEM PROSTC AGRFT/ALGRFT Right 06/23/2017 Hip replacement, total COLONOSCOPY & POLYPECTOMY 06/16/2016 repeat 5 years COLONOSCOPY W/BIOPSY SINGLE/MULTIPLE 04/01/09 EGD TRANSORAL BIOPSY SINGLE/MULTIPLE 06-22-[address] [facility] [address] Marroquin LIG/TRNSXJ FLP TUBE ABDL/VAG APPR UNI/BI 1973 Tubal ligation PAST SURGICAL HISTORY OF 1984 ovarian cyst PAST SURGICAL HISTORY OF 2006 right breast removed bonnie. tumor PAST SURGICAL HISTORY OF 06/07 bilateral eye lid surgery REM LESIO TRUNK,ARM,LEG 1.1 -2.0CM 12/22/06 Exc. right lower back skin lesion TOTAL ABDOMINAL HYSTERECT W/WO RMVL TUBE OVARY 1988 Hysterectomy, EDWINA - ovaries remain CURRENT MEDICATIONS Current Outpatient Medications Medication Sig nitrofurantoin monohydrate and macrocrystal (MACROBID) 100 mg capsule Take 1 capsule by mouth twicedaily with meals for 7 days. triamcinolone acetonide [...] right total hip replacement Z96.641 (Patient not taking:Reported on 06/30/2021 ) No current facility-administered medications [...] entered by the nurse and reviewed by co Nursing Notes: Lulú Heard RN 06/30/2021 3:50 [...] back pain/injury, denies back problems, denies sciatica, deniesknee/foot trouble, denies arthritis, or denies gout. When was patient's last Mammogram screening? 2021 Last Colonoscopy: 2016 Lulú Heard RN PHYSICAL EXAMINATION: General: The patient is 70 year old female, well nourished, well hydrated in no acute distress. Thepatient is oriented to time, place, and person. VITALS: Blood pressure 126/84, pulse 91, temperature 36.4 C (97.6 F), height 160 cm (5' 3), .3 kg (263 lb), SpO2 95 %. Body mass index is 46.59 kg/m . HEENT: Normal cephalic, ataumatic, pupils are equally round, sclera are anicteric, mucous membranesare moist, oropharynx is clear. Neck has no [...] surgeon/proceduralist and patient have discussed in detail therisk of exposure to and/or potential harm posed by the COVID-19 virus with having a surgery/procedure at this time versus the risk of delaying the surgery/procedure. It is not possible to know eitherthe risk of delaying the surgery or procedure [...] C (97.6 F), height 160 cm (5' 3), weight 119.3 kg (263 lb), SpO2 95 %. BMI: Body mass index is 46.59 kg/m . Planned antibiotic: none SCDs needed: No Epic Interface Analyst Needed: No Pre Op Clearance: None Anticoagulation: No Diabetic: No Location: [facility] Douglas Corral III, MD UPDATED HISTORY AND PHYSICAL EXAMINATION SERVICE DATE: 07/24/2021 SERVICE TIME: 9:02 AM PHYSICAL EXAM MUST BE COMPLETED ON ADMISSION The History and Physical (completed in the past 30 days) has been reviewed and the patient has beenexamined. The contents accurately reflect the patient's condition with the following additions or revisions since the H&P was completed. Examination indicates no changes. This H&P can be found in the attached. SIGNATURE: Douglas Corral III, MD PATIENT NAME: Dianne Holly DATE: July 24, 2021 TIME: 9:02 AM documented in this encounterAdena [facility] Center05-12-2022 Miscellaneous Notes* Telephone Encounter - Kina Villegas LPN - 07/10/2021 1:02 PM EDT Pt advised of same. Pt states she has not had any more episodes so she will continue to monitor. Thinks it is from a greasy burger that she had last night. Kina Villegas LPN * Telephone Encounter - Padmini Solorzano PA-C - 07/10/2021 12:40 PM EDT She can come in to be evaluated for this. Especially if not improving. Padmini Solorzano PA-C * Telephone Encounter - Kina Villegas LPN - 07/10/2021 12:16 PM EDT Spoke with pt. States this is new onset and started last night. Advised pt she would be contacted if any further instructions after review by Padmini. Kina Villegas LPN * Telephone Encounter - Padmini Solorzano PA-C - 07/10/2021 11:53 AM EDT Is the diarrhea new? Or is she still having it from 06/23? Padmini Solorzano PA-C * Telephone Encounter - Paris Silva LPN - 07/10/2021 10:39 AM EDT Pt states she has more energy & does feel better than she had. Denies urinary frequency, urgency or pain with urination. No fever. Pt states she has had 3 watery diarrhea stools since last pm. Slight stomach cramps. Paris Silva LPN * Telephone Encounter - Kina Villegas LPN - 07/10/2021 9:00 AM EDT Attempted to contact pt. No answer and vm is full. Sent pt msg via asking her to speak with a Triage Nurse. Kina Villegas LPN * Telephone Encounter - Padmini Solorzano PA-C - 07/10/2021 7:32 AM EDT Culture appears contaminated during her collection process. How is she feeling? documented in this encounterAdena [facility]05-02-2022 Miscellaneous Notes* Telephone Encounter - Michelle Lockett - 06/30/2021 4:18 PM EDT 07-24-2021 COLON ASC documented in this encounterAdena [facility] Center04-25-2022 Miscellaneous Notes* Telephone Encounter - Carl Bryant MA - 06/23/2021 2:15 PM EDT Patient is aware. Carl Bryant MA * Telephone Encounter - Dewayne Chung MD - 06/23/2021 2:10 PM EDT Let patient know culture on urine is pending. * Telephone Encounter - Carl Bryant MA - 06/23/2021 1:44 PM EDT Patient notified and voiced understanding. She did indicated that came to the lab to have another Urine completed per provider request. Carl Bryant MA * Telephone Encounter - Carl Bryant MA - 06/23/2021 1:43 PM EDT ----- Message from Padmini Solorzano PA-C sent at 06/23/2021 12:43 PM EDT ----- Bone density is normal. documented in this encounterAdena [facility] Medical Center04-25-2022 History of Present illness Narrative* RT Mikel(R) - 06/23/2021 11:30 AM EDT Radiology Service Progress Note PATIENT NAME: Dianne Holly DATE OF SERVICE: June 23, 2021 TIME: 11:30 AM PATIENT IDENTITY VERIFICATION COMPLETED USING TWO (2) IDENTIFIERS: Name and Date of confirmedby patient verbally. FALL SCREENING: Has the patient [...] 23, 2021 11:30 AM documented in this encounterAdena [facility] Medical Center03-31-2022 Miscellaneous Notes* Telephone Encounter - Kina Villegas LPN - 05/29/2021 10:58 AM EDT Patient notified of results and provider's instructions. Patient verbalizes understanding. Kina Villegas LPN * Telephone Encounter - Padmini Solorzano PA-C - 05/29/2021 10:49 AM EDT Urine did show infection. atb sent. Repeat culture in 2 weeks to make sure goes away with this atb. Thanks. Padmini Solorzano PA-C documented in this encounterAdena [facility] Medical Center03-28-2022 Instructions* Patient Instructions* Padmini Solorzano PA-C - 05/26/2021 12:32 PM EDT BONE MINERAL DENSITY PATIENT INSTRUCTIONS Bone mineral density testing measures the amount of calcium in certain parts of your bones. This information determines how strong your bones are. The test is used to detect osteoporosis, a disease in which the bone's mineral content and density are low, increasing a person's risk of fractures. Thelumbar spine (lower back) and the hip are [...] your usual activities immediately. documented in this encounterAdena [facility] Medical Center03-28-2022 History of Present illness Narrative* Padmini Solorzano PA-C - 05/26/2021 12:11 PM EDT Welcome To Medicare Visit Medical B eligibility date 11/29/2016 Date of last exam 01/29/2020 PAST MEDICAL HISTORY Diagnosis Date Adenoma of left adrenal gland 12/06/2018 Seen [facility] ER CT 11/28/2018 was stable in size since CT done 11/2015: benign. ADRENAL NODULE 11/17/2007 Anxiety state 11/19/2006 Benign neoplasm of colon BPPV (benign paroxysmal positional vertigo) 04/03/2015 Chronic left shoulder pain 09/17/2015 Class 3 severe obesity due to excess calories without serious comorbidity with body mass index (BMI) of 45.0 to 49.9 in adult ([facility]) 06/18/2014 Current use of proton pump inhibitor 11/23/2017 Mg checked 04/2018 DDD (degenerative disc disease), lumbar 01/15/2016 Diverticulitis of large intestine without perforation or abscess without bleeding 06/03/2016 Emphysema of lung ([facility]) 06/18/2014 Essential hypertension 11/19/2006 Gastroesophageal reflux disease without esophagitis 11/19/2006 Generalized osteoarthrosis, unspecified site 11/19/2006 Internal hemorrhoids Medicare annual wellness visit, initial 11/23/2017 Medicare Part B: 11/29/2016 last done: 11/16/2018 Mixed hyperlipidemia 03/19/2008 Osteoarthritis of lumbar spine 01/15/2016 Osteoarthritis of multiple joints 11/19/2006 Overactive bladder 01/16/2019 Primary osteoarthritis of right hip 09/21/2016 Primary ovarian failure 11/23/2017 Recurrent major depressive disorder, in remission ([facility]) 11/23/2017 Smoker 05/27/2010 Status post right hip replacement 10/01/2017 Venous insufficiency (chronic) (peripheral) 10/16/2014 Vertigo 06/14/2017 PAST SURGICAL HISTORY Procedure Laterality Date ARTHROSCOPY KNEE DIAGNOSTIC W/WO SYNOVIAL BX SPX 2001 Arthroscopy, knee right ARTHRP ACETBLR/PROX FEM PROSTC AGRFT/ALGRFT Right 06/23/2017 Hip replacement, total COLONOSCOPY & POLYPECTOMY 06/16/2016 repeat 5 years COLONOSCOPY W/BIOPSY SINGLE/MULTIPLE 04/01/09 EGD TRANSORAL BIOPSY SINGLE/MULTIPLE 06-22-[address] [facility] [address] Marroquin LIG/TRNSXJ FLP TUBE ABDL/VAG [...] Adenoma of left adrenal gland 12/06/2018 Seen [facility] ER CT 11/28/2018 was stable in size since CT done 11/2015: benign. ADRENAL NODULE 11/17/2007 Anxiety state 11/19/2006 Benign neoplasm of colon BPPV (benign paroxysmal positional vertigo) 04/03/2015 Chronic left shoulder pain 09/17/2015 Class 3 severe obesity due to excess calories without serious comorbidity with body mass index (BMI) of 45.0 to 49.9 in adult ([facility]) 06/18/2014 Current use of proton pump inhibitor 11/23/2017 Mg checked 04/2018 DDD (degenerative disc disease), lumbar 01/15/2016 Diverticulitis of large intestine without perforation or abscess without bleeding 06/03/2016 Emphysema of lung ([facility]) 06/18/2014 Essential hypertension 11/19/2006 Gastroesophageal reflux disease without esophagitis 11/19/2006 Generalized osteoarthrosis, unspecified site 11/19/2006 Internal hemorrhoids Medicare annual wellness visit, initial 11/23/2017 Medicare Part B: 11/29/2016 last done: 11/16/2018 Mixed hyperlipidemia 03/19/2008 Osteoarthritis of lumbar spine 01/15/2016 Osteoarthritis of multiple joints 11/19/2006 Overactive bladder 01/16/2019 Primary osteoarthritis of right hip 09/21/2016 Primary ovarian failure 11/23/2017 Recurrent major depressive disorder, in remission ([facility]) 11/23/2017 Smoker 05/27/2010 Status post right hip replacement 10/01/2017 Venous insufficiency (chronic) (peripheral) 10/16/2014 Vertigo 06/14/2017 Previous Surgical History PAST SURGICAL HISTORY Procedure Laterality Date ARTHROSCOPY KNEE DIAGNOSTIC W/WO SYNOVIAL BX SPX 2001 Arthroscopy, knee right ARTHRP ACETBLR/PROX FEM PROSTC AGRFT/ALGRFT Right 06/23/2017 Hip replacement, total COLONOSCOPY & POLYPECTOMY 06/16/2016 repeat 5 years COLONOSCOPY W/BIOPSY SINGLE/MULTIPLE 04/01/09 EGD TRANSORAL BIOPSY SINGLE/MULTIPLE 06-22-[address] [facility] [address] Marroquin LIG/TRNSXJ FLP TUBE ABDL/VAG [...] nausea/ throat swelling Ibuprofen Vomiting Hematemesis - [facility] 06/21/2012 Nickel Rash Can only wear [...] right total hip replacement Z96.641 (Patient not taking:Reported on 08/13/2020 ) No current facility-administered medications [...] No history of dysuria, frequency or incontinence 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 andMorbidly obese. Skin: Skin color, texture, turgor normal, [...] Abs Lymph 1.00 - 4.00 k/uL 1.72 [place]% % 8.4 Abs [place] <0.87 k/uL 0.72 Eosin% % 1.9 Abs [...] Negative Negative Ketones, Urine Negative Negative Specific [place], Ur 1.005 - 1.030 1.017 Hemoglobin/Blood,Ur Negative 1+ (A) pH, Urine 5.0 - 8.0 5.0 Protein, Urine Negative Negative Urobilinogen Negative E.U./dL Negative Nitrites Negative Positive (A) Leukest Negative 2+ (A) Comment SEE COMMENT Urine Myles Comment SEE COMMENT WBC, Urine 0 - [...] diet of 1000 mg/day for under 50, 1200- 1500 mg/day for 50+ - Discussed need and [...] CULTURE Padmini Solorzano PA-C documented in this encounterAdena Regional Medical Center09-09-2021 History of Present illness Narrative* Luda Ny RT(R) - 11/07/2020 2:50 PM EDT Radiology Service Progress Note PATIENT NAME: Dianne Holly DATE OF SERVICE: November 07, 2020 TIME: 3:18 PM PATIENT IDENTITY VERIFICATION COMPLETED USING TWO (2) IDENTIFIERS: Name and Date of confirmedby patient verbally. FALL SCREENING: Has the patient had 2 falls in the last year or 1 fall with injury or currently using an Ambulatory Assistive Device (Walker, Cane, Wheelchair, Crutches, etc.)? No PATIENT GENDER DATA: Female. status: : No status: NO. PATIENT RELEVANT IMPLANT DATA REVIEWED: Not Applicable RADIOLOGY DEPARTMENT: General X-ray: Exam(s) Completed: Chest X-Ray PERIPHERAL IV DATA: Not applicable SIGNED BY: RT Charli(R) November 07, 2020 3:18 PM documented in this encounterAdena [facility] Medical Center09-25-2018 History of Past illness Narrative* Problem Noted [...] of this encounter (statuses as of 06/16/2022) [facility] Narrative* Problem Noted [...] of this encounter (statuses as of 06/19/2022) [facility] illness Narrative* Problem Noted [...] of this encounter (statuses as of 06/24/2022) [facility] of [facility] illness Narrative* Problem Noted [...] of this encounter (statuses as of 06/26/2022) [facility] illness Narrative* Problem Noted [...] of this encounter (statuses as of 06/30/2022) [facility] Narrative* Problem Noted [...] of this encounter (statuses as of 07/04/2022) [facility] Narrative* Problem Noted [...] of this encounter (statuses as of 07/07/2022) [facility] Narrative* Problem Noted [...] of this encounter (statuses as of 07/08/2022) [facility] Narrative* Problem Noted [...] of this encounter (statuses as of 07/09/2022) [facility] Narrative* Problem Noted [...] of this encounter (statuses as of 07/13/2022) [facility] Narrative* Problem Noted [...] of this encounter (statuses as of 08/08/2022) [facility] Narrative* Problem Noted [...] of this encounter (statuses as of 08/04/2022) [facility] Narrative* Problem Noted [...] of this encounter (statuses as of 08/04/2022) [facility] Narrative* Problem Noted [...] of this encounter (statuses as of 08/18/2022) [facility] Narrative* Problem Noted [...] of this encounter (statuses as of 08/26/2022) [facility] Narrative* Problem Noted [...] of this encounter (statuses as of 09/08/2022) [facility] Narrative* Problem Noted [...] of this encounter (statuses as of 10/22/2022) [facility] Narrative* Problem Noted [...] of this encounter (statuses as of 10/28/2022) [facility] Narrative* Problem Noted [...] of this encounter (statuses as of 10/29/2022) [facility] Narrative* Problem Noted [...] of this encounter (statuses as of 11/17/2022) [facility] Narrative* Problem Noted [...] of this encounter (statuses as of 11/23/2022) [facility] Narrative* Problem Noted [...] of this encounter (statuses as of 11/27/2022) [facility] Narrative* Problem Noted [...] of this encounter (statuses as of 12/03/2022) [facility] Narrative* Problem Noted [...] of this encounter (statuses as of 12/10/2022) [facility] Narrative* Problem Noted [...] of this encounter (statuses as of 12/31/2022) [facility] Narrative* Problem Noted [...] of this encounter (statuses as of 01/03/2023) [facility] Narrative* Problem Noted [...] of this encounter (statuses as of 01/27/2023) [facility] N[facility]ative* Problem Noted [...] of this encounter (statuses as of 02/05/2023) [facility] Narrative* Problem Noted [...] of this encounter (statuses as of 02/08/2023) [facility] Narrative* Problem Noted [...] of this encounter (statuses as of 02/12/2023) [facility] Past illness Narrative* Problem Noted [...] as of this encounter (statuses as of 05/02/2023) [facility] History of Past illness Narrative* Problem Noted [...] as of this encounter (statuses as of 05/03/2023) [facility] History of Past illness Narrative* Problem Noted [...] as of this encounter (statuses as of 05/03/2023) [facility] History of Past illness Narrative* Problem Noted [...] as of this encounter (statuses as of 05/04/2023) [facility] History of Past illness Narrative* Problem Noted [...] as of this encounter (statuses as of 05/06/2023) [facility] History of Past illness Narrative* Problem Noted [...] of this encounter (statuses as of 05/26/2021) [facility] History of Past illness Narrative* Problem Noted [...] of this encounter (statuses as of 05/29/2021) [facility] History of Past illness Narrative* Problem Noted [...] of this encounter (statuses as of 06/23/2021) [facility] History of Past illness Narrative* Problem Noted [...] of this encounter (statuses as of 06/24/2021) [facility] History of Past illness Narrative* Problem Noted [...] of this encounter (statuses as of 07/10/2021) [facility] History of Past illness Narrative* Problem Noted [...] of this encounter (statuses as of 07/25/2021) [facility] History of Past illness Narrative* Problem Noted [...] of this encounter (statuses as of 07/30/2021) [facility] History of Past illness Narrative* Problem Noted [...] of this encounter (statuses as of 09/23/2021) [facility] of Past illness Narrative* Problem Noted [...] of this encounter (statuses as of 12/08/2021) [facility] of Past illness Narrative* Problem Noted [...] of this encounter (statuses as of 12/09/2021) [facility] of Past illness Narrative* Problem Noted [...] of this encounter (statuses as of 12/09/2021) [facility] of Past illness Narrative* Problem Noted [...] of this encounter (statuses as of 2021) [facility] History of Past illness Narrative* Problem Noted [...] of this encounter (statuses as of 12/17/2021) [facility] History of Past illness Narrative* Problem Noted [...] of this encounter (statuses as of 01/07/2022) [facility] History of Past illness Narrative* Problem Noted [...] of this encounter (statuses as of 06/12/2022) [facility] Medicare annual wellness visit, initial- Primary Routine general medical examination at a health care facility Advance directive discussed with patient [...] laterality Microscopic hematuria [facility] Diagnosis Recurrent UTI (urinary tract infection)- Primary Urinary tract infection, site not specified [facility] Diagnosis Asymptomatic postmenopausal status [facility] Diagnosis History of colonic polyps Personal history of colonic polyps documented [facility] noteNo assessment information availableWParkview Health Work Phone: Evaluation note* Diagnosis Tubular adenoma- Primary Benign neoplasm of unspecified site Diverticulosis Diverticulosis of colon (without mention of hemorrhage) Internal hemorrhoids Internal hemorrhoids without mention of complication History of colonic diverticulitis Personal history of other diseases of digestive system [facility] Diagnosis Essential hypertension- Primary Unspecified [...] for breast cancer [facility] Diagnosis Urinary frequency- Primary [facility] Diagnosis Anxiety state- Primary Anxiety state, unspecified Recurrent major depressive disorder, in remission (HCC) [facility]* Diagnosis Acute cough- Primary Suspected COVID-19 virus infection COPD with exacerbation (HCC) Obstructive chronic bronchitis with exacerbation [facility]* Diagnosis Anxiety state Anxiety state, unspecified Depression, unspecified depression type [facility]* Diagnosis Recurrent major depressive disorder, in remission ([facility])- Primary Anxiety state Anxiety state, unspecified Class 3 severe obesity due to excess calories without serious comorbidity with body mass index (BMI) of 45.0 to 49.9 in adult ([facility]) Snores Other dyspnea and respiratory abnormality Hypersomnolence Hypersomnia, unspecified Pulmonary emphysema, unspecified emphysema type ([facility]) Cough, persistent Cough Smoker Tobacco use disorder Encounter for screening for lung cancer Mixed hyperlipidemia Essential hypertension Unspecified essential hypertension Gastroesophageal reflux disease without esophagitis Esophageal reflux Vitamin B12 deficiency Other B-complex deficiencies Medication management Encounter for long-term (current) use of other medications Advance directive discussed with patient Other specified counseling Lip lesion Diseases of lips [facility] Diagnosis Renal insufficiency- Primary Unspecified disorder of kidney and ureter [facility] Diagnosis Encounter for screening for lung cancer- Primary Tobacco use current [facility] Diagnosis Smoker Tobacco use disorder Pulmonary emphysema, unspecified emphysema type ([facility]) Cough, persistent Cough documented [facility]* Diagnosis Cellulitis of skin- Primary Cellulitis and abscess of unspecified site Dog bite, subsequent encounter [facility]* Diagnosis Dog bite of left wrist with infection, subsequent encounter- Primary Abscess Cellulitis and abscess of unspecified site [facility] Dog bite of left wrist with infection, subsequent encounter- Primary documented [facility] Diagnosis Dog bite of left wrist with infection, subsequent encounter- Primary [facility]* Diagnosis MÓNICA (obstructive sleep apnea)- Primary Obstructive sleep apnea (adult) (pediatric) Sleep related hypoxia Idiopathic sleep related nonobstructive alveolar hypoventilation Class 3 severe obesity with body mass index (BMI) of 45.0 to 49.9 in adult, unspecified obesity type, unspecified whether serious comorbidity present ([facility]) 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, delayed sleep phase type [facility] Diagnosis Moderate obstructive sleep apnea Obstructive sleep apnea (adult) (pediatric) documented [facility]* Diagnosis Encounter for screening for lung cancer- Primary Tobacco use current [facility] Diagnosis Coronary artery calcification- Primary Coronary atherosclerosis of unspecified type of vessel, mary's igloo or graft SOB (shortness of breath) Shortness of breath Decreased stamina Other malaise and fatigue Family history of early CAD Family history of ischemic heart disease MÓNICA (obstructive sleep apnea) Obstructive sleep apnea (adult) (pediatric) documented [facility]* Diagnosis Dog bite, initial encounter- Primary Visit for suture removal Encounter for removal of sutures Obesity, Class III, BMI 40-49.9 (morbid obesity) ([facility]) Morbid obesity [facility] Diagnosis COPD (chronic obstructive pulmonary disease) with acute bronchitis (HCC)- Primary Obstructive chronic bronchitis with acute bronchitis Rhonchi Abnormal chest sounds URI, acute Acute upper respiratory infections of unspecified site [facility]* Diagnosis Encounter for screening mammogram for breast cancer [facility] Diagnosis MÓNICA (obstructive sleep apnea)- Primary Obstructive sleep apnea (adult) (pediatric) Sleep related hypoxia Idiopathic sleep related nonobstructive alveolar hypoventilation Class 3 severe obesity with body mass index (BMI) of 45.0 to 49.9 in adult, unspecified obesity type, unspecified whether serious comorbidity present (HCC) Chronic obstructive pulmonary disease, unspecified COPD type (HCC) [facility]* Diagnosis Essential hypertension- Primary Unspecified essential hypertension Gastroesophageal reflux disease without esophagitis Esophageal reflux Mixed hyperlipidemia Moderate obstructive sleep apnea Obstructive sleep apnea (adult) (pediatric) Osteoarthritis of multiple joints, unspecified osteoarthritis type [facility] Diagnosis Essential hypertension Unspecified essential hypertension Anxiety state Anxiety state, unspecified [facility] Diagnosis Encounter for screening for lung cancer Tobacco use current [facility] Diagnosis Cystitis with hematuria- Primary Cystitis, unspecified [facility] Diagnosis Fever, unspecified fever cause- Primary [facility] Diagnosis Fever, unspecified fever cause [facility] Diagnosis MÓNICA (obstructive sleep apnea)- Primary Obstructive sleep apnea (adult) (pediatric) Sleep related hypoxia Idiopathic sleep related nonobstructive alveolar hypoventilation [facility] Diagnosis Gastroesophageal reflux disease without esophagitis- Primary Esophageal reflux Anxiety state Anxiety state, unspecified Essential hypertension Unspecified essential hypertension Mixed hyperlipidemia Vitamin B12 deficiency Other B-complex deficiencies Medication management Encounter for long-term (current) use of other medications Elevated blood sugar Other abnormal glucose [facility] Diagnosis Encounter for Medicare annual wellness exam- Primary Routine general medical examination at a health care facility Essential hypertension Unspecified essential hypertension Mixed hyperlipidemia Gastroesophageal reflux disease without esophagitis Esophageal reflux Coronary artery calcification Coronary atherosclerosis of unspecified type of vessel, mary's igloo or graft Pulmonary emphysema, unspecified emphysema type ([facility]) Anxiety state Anxiety state, unspecified Recurrent major depressive disorder, in remission ([facility]) Smoker Tobacco use disorder Class 3 severe obesity due to excess calories without serious comorbidity with body mass index (BMI) of 45.0 to 49.9 in adult ([facility]) Venous insufficiency (chronic) (peripheral) Unspecified venous (peripheral) insufficiency Vitamin B12 deficiency Other B-complex deficiencies Moderate obstructive sleep apnea Obstructive sleep apnea (adult) (pediatric) Advance directive discussed with patient Other specified counseling Screening for osteoporosis Special screening for osteoporosis Primary ovarian failure Other ovarian failure Stage 3a chronic kidney disease ([facility]) Need for vaccination Need for prophylactic vaccination and inoculation against unspecified single disease Paronychia of right thumb Onychia and paronychia of finger Elevated hemoglobin A1c Other abnormal blood chemistry [facility] Diagnosis Encounter for screening for lung cancer Tobacco use current documented [facility]* Diagnosis MÓNICA (obstructive sleep apnea)- Primary Obstructive sleep apnea (adult) (pediatric) Nocturnal hypoxia Hypoxemia Chronic obstructive pulmonary disease, unspecified COPD type ([facility]) Moderate smoker (20 or less per day) Tobacco use disorder documented [facility] Diagnosis Multiple lung nodules- Primary Other nonspecific abnormal finding of lung field Encounter for screening for lung cancer Tobacco use current [facility] Diagnosis Encounter for screening mammogram for breast cancer documented [facility] Diagnosis Screening for osteoporosis Special screening for osteoporosis Primary ovarian failure Other ovarian failure [facility] Diagnosis COPD with exacerbation (HCC)- Primary Obstructive chronic bronchitis with exacerbation Acute cough URI, acute Acute upper respiratory infections of unspecified site [facility]* Diagnosis Screening for osteoporosis- Primary Special screening for osteoporosis [facility] Diagnosis Cough, persistent Cough [facility] Diagnosis Cough 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 Neoplasm of uncertain behavior of skin [facility]* Diagnosis COPD, mild ([facility])- Primary Chronic airway obstruction, not elsewhere classified Cigarette smoker Tobacco use disorder MÓNICA (obstructive sleep apnea) Obstructive sleep apnea (adult) (pediatric) Gastroesophageal reflux disease, unspecified whether esophagitis present Morbid obesity ([facility]) Morbid obesity [facility]* Diagnosis Sciatica, unspecified laterality- Primary Moderate obstructive sleep apnea Obstructive sleep apnea (adult) (pediatric) Primary insomnia Persistent disorder of initiating or maintaining sleep Chronic 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 URI, acute Acute upper respiratory infections of unspecified site [facility]* Diagnosis Lumbar disc herniation- Primary Displacement of lumbar intervertebral disc without myelopathy Degeneration of intervertebral disc of lumbar region with discogenic back pain and lower extremity pain Acute right-sided low back pain with right-sided sciatica Trigger middle finger of right hand Trigger finger (acquired) Trigger ring finger of right hand Trigger finger (acquired) Neoplasm of uncertain behavior of skin of forearm Neoplasm of uncertain behavior of skin Essential hypertension Unspecified essential hypertension Anxiety state Anxiety state, unspecified Encounter for immunization Need for other specified prophylactic vaccination against single bacterial disease [facility]* Diagnosis Encounter for screening mammogram for breast cancer [facility] Diagnosis Trigger middle finger of right hand- Primary Trigger finger (acquired) Trigger ring finger of right hand Trigger finger (acquired) documented in this encounter [facility] note* Diagnosis Essential hypertension- Primary Unspecified essential hypertension Elevated hemoglobin A1c Other abnormal blood chemistry Stage 3a chronic kidney disease ([facility]) Class 3 severe obesity due to excess calories without serious comorbidity with body mass index (BMI) of 45.0 to 49.9 in adult ([facility]) Gastroesophageal reflux disease without esophagitis Esophageal reflux Recurrent major depressive disorder, in remission ([facility]) Mixed hyperlipidemia Medication management Encounter for long-term (current) use of other medications documented in this encounter [facility] note* Diagnosis Stage 1 mild COPD by GOLD classification ([facility])- Primary Cigarette smoker Tobacco use disorder Morbid obesity (HCC) Morbid obesity Gastroesophageal reflux disease, unspecified whether esophagitis present documented in this encounter [facility] note* Diagnosis Neoplasm of uncertain behavior of skin of forearm- Primary Neoplasm of uncertain behavior of skin documented in this encounter [facility] note* Diagnosis Obstructive sleep apnea- Primary Obstructive sleep apnea (adult) (pediatric) Nocturnal hypoxia Hypoxemia Difficulty using continuous positive airway pressure (CPAP) device documented in this encounter [facility] note* Diagnosis Chronic 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- Primary documented in this encounter [facility] note* Diagnosis Chronic 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- Primary documented in this encounter [facility] note* Diagnosis Chronic 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- Primary documented in this encounter [facility] note* Diagnosis Chronic 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- Primary documented in this encounter [facility] Discharge instructions Additional Instructions Please follow-up with your PCP and return for any worsening of your symptoms. [facility] Work Phone: Reason for referral (narrative)* Outpatient Procedure (Routine) - Closed Specialty Diagnoses / Procedures Referred By Alta gupta Referred To Contact [facility] Diagnoses History of colonic polyps Procedures COLONOSCOPY DIAGNOSTIC COLONOSCOPY FLX DX W/COLLJ SPEC WHEN PFRMD Douglas Corral MD [address] [place] [address] [facility] [address] [place] [address] Referral ID Status Reason Start Date Expiration Date V isits Requested Visits Authorized [id number] Closed Auto-Generate d Referral 07/24/2021 10/22/2021 1 1 [facility] for referral (narrative)* Diagnostic Procedure Only (Routine) - Authorized Specialty Diagnoses / Procedures Referred By Alta gupta Referred To Contact [facility] Diagnoses Screening mammogram for breast cancer Procedures YULIA SCREENING SCREENING MAMMOGRAPHY BI 2-VIEW BREAST INC Padmini Tinoco PA-C [address] [place] [address] [facility] [address] [place] [address] Referral ID Status Reason Start Date Expiration Date Visits Requested Visits Authorized [id number] Authorized Auto-Generat ed Referral 01/07/2023 1 1 [facility] for referral (narrative)* Diagnostic Procedure Only (Urgent) - Closed Specialty Diagnoses / Procedures Referred By Contac t Referred To Contact [facility] Diagnoses Rhonchi Procedures XR RIBS 2V AP/OBL RIGHT RADEX RIBS UNILATERAL 2 VIEWS Keke Bae APRN.CNP [address] [place] [address] [place] [address] Referral ID Status Reason Start Date Expiration Date V isits Requested Visits Authorized [id number] Closed Auto-Generate d Referral 11/16/2022 12/16/2023 1 1 [facility] for referral (narrative)* Diagnostic Procedure Only (Routine) - Pending Review Specialty Diagnoses / Procedures Referred By Contac t Referred To Contact [facility] Diagnoses Encounter for screening mammogram for breast cancer Procedures YULIA SCREENING SCREENING MAMMOGRAPHY BI 2-VIEW BREAST INC CAD Dewayne Chung MD [address] [place] [address] [facility] [address] [facility] [place] [address] Referral ID Status Reason Start Date Expiration Date Visits Requested Visits Authorized [id number] Pending Review Auto-Generat ed Referral 11/18/2022 12/18/2023 1 1 [facility] for referral (narrative)* Diagnostic Procedure Only (Routine) - Authorized Specialty Diagnoses / Procedures Referred By Contac t Referred To Contact [facility] Diagnoses Screening for osteoporosis Primary ovarian failure Procedures DXA-AXIAL SKELETON Dewayne Chung MD [address] [place] [address] [place] [address] Referral ID Status Reason Start Date Expiration Date Visits Requested Visits Authorized [id number] Authorized Auto-Generat ed Referral 08/11/2023 09/09/2024 1 1 [facility] for referral (narrative)* Diagnostic Procedure Only (Routine) - New Request Specialty Diagnoses / Procedures Referred By Alta gupta Referred To Contact [facility] Diagnoses Encounter for screening mammogram for breast cancer Procedures YULIA SCREENING W VASQUEZ SCREENING DIGITAL BREAST TOMOSYNTHESIS BI SCREENING MAMMOGRAPHY BI 2-VIEW BREAST INC CAD Dewayne Chung MD [address] [place] [address] [facility] [address] [place] [address] Referral ID Status Reason Start Date Expiration Date Visits Requested Visits Authorized [id number] New Request Auto-Generat ed Referral 10/20/2023 11/18/2024 1 1 [facility] for visit Narrative* Diagnostic Procedure Only (Routine) - Closed Specialty Diagnoses / Procedures Referred By Alta t Referred To Contact Radiology / RADIO BONE DENSITY [facility] Diagnoses Asymptomatic postmenopausal status [Z78.0] Procedures BONE DENSITY ADULT 225 Padmini Solorzano PA-C [address] [place] [address] Radio Bone Density [facility] [address] [address] Referral ID Status Reason Start Date Expiration Date Visits Re quested Visits Authorized [id number] Closed 06/23/2021 02/28/2022 1 1 [facility] for visit Narrative* Outpatient Procedure (Routine) - Closed Specialty Diagnoses / Procedures Referred By Alta Referred To Contact [facility] Diagnoses History of colonic polyps Procedures COLONOSCOPY DIAGNOSTIC COLONOSCOPY FLX DX W/COLLJ SPEC WHEN PFDouglas Vicente MD [address] [place] [address] [facility] [address] [place] [address] Referral ID Status Reason Start Date Expiration Date V isits Requested Visits Authorized [id number] Closed Auto-Generate d Referral 07/24/2021 10/22/2021 1 1 [facility] for visit Narrative* Diagnostic Procedure Only (Routine) - Closed Specialty Diagnoses / Procedures Referred By Aidaac t Referred To Contact XR IMAGING Diagnoses Screening for osteoporosis Primary ovarian failure Procedures DXA-AXIAL SKELETON Dewayne Chung MD [address] [place] [address] [place] [address] Referral ID Status Reason Start Date Expiration Date V isits Requested Visits Authorized [id number] Closed Auto-Generate d Referral 08/11/2023 09/09/2024 1 1 [facility] for visit Narrative* Diagnostic Procedure Only (Urgent) - Closed Specialty Diagnoses / Procedures Referred By Alta t Referred To Contact XR IMAGING Diagnoses Rhonchi Procedures XR RIBS 2V AP/OBL RIGHT RADEX RIBS UNILATERAL 2 VIEWS Keke Bae APRN.CNP [address] [place] [address] [place] [address] Referral ID Status Reason Start Date Expiration Date V isits Requested Visits Authorized [id number] Closed Auto-Generate d Referral 11/16/2022 12/16/2023 1 1 [facility] for visit Narrative* Diagnostic Procedure Only (Routine) - Closed Specialty Diagnoses / Procedures Referred By Alta gupta Referred To Contact BR IMAGING Diagnoses Encounter for screening mammogram for breast cancer Procedures YULIA SCREENING W VASQUEZ SCREENING DIGITAL BREAST TOMOSYNTHESIS BI SCREENING MAMMOGRAPHY BI 2-VIEW BREAST INC CAD Dewayne Chung MD [address] [place] [address] [facility] [address] [place] [address] Referral ID Status Reason Start Date Expiration Date V isits Requested Visits Authorized [id number] Closed Auto-Generate d Referral 10/20/2023 11/18/2024 1 1 [facility] Summary Purpose Family History No Family History Records Found Relationship Condition Age at Onset Recorded Date/T lyssa Unknown Family History?No pertinent history Unkno wn July 01, 2017 9:59pm Family History?No pertinent history Unkno wn July 01, 2017 9:59pm Relationship Condition Age at Onset Recorded Date/T lyssa Unknown Family History?No pertinent history Unkno wn July 01, 2017 8:59pm Family History?No pertinent history Unkno wn July 01, 2017 8:59pm Advance Directives No Advanced Directives Records FoundDocuments on File Type Date Recorded 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 Advance Directive(s) 09/07/2017 2:23 PM Advance Directive(s) 06/23/2017 8:12 AM Advance Directive(s) 06/01/2017 9:10 AM Advance Directive(s) 06/16/2016 7:01 AM Documents on File Type Date Recorded 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 Advance Directive(s) 09/07/2017 2:23 PM Advance Directive(s) 06/23/2017 8:12 AM Advance Directive(s) 06/01/2017 9:10 AM Advance Directive(s) 06/16/2016 7:01 AM Documents on File Type Date Recorded 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 Advance Directive(s) 07/24/2021 8:24 AM Advance Directive(s) 09/07/2017 2:23 PM Advance Directive(s) 06/23/2017 8:12 AM Advance Directive(s) 06/01/2017 9:10 AM Advance Directive(s) 06/16/2016 7:01 AM Documents on File Type Date Recorded 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 Advance Directive(s) 07/24/2021 8:24 AM Advance Directive(s) 09/07/2017 2:23 PM Advance Directive(s) 06/23/2017 8:12 AM Advance Directive(s) 06/01/2017 9:10 AM Advance Directive(s) 06/16/2016 7:01 AM Advance Directive Response Recorded Date/ Time Living Will No August 13, 2021 11:37pm 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 No August 13 11:37pm Advance Directive Response Recorded Date/ Time Living Will No July 01, 2022 11 :06pm 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 No July 01, 2022 11:06pm Advance Directive Response Recorded Date/ Time Living Will No July 04, 2022 9: 28am 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 No July 04, 2022 9:28am Advance Directive Response Recorded Date/ Time Living Will No July 06, 2022 5: 46pm 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 No July 06, 2022 5:46pm Advance Directive Response Recorded Date/ Time Living Will No October 17 9:18pm 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 No October 17, 023 9:18pm Advance Directive Response Recorded Date/ Time Living Will No March 08 9:40pm 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 No March 08 024 9:40pm Advance Directive Response Recorded Date/ Time Living Will No May 29, 2023 6:31pm 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 No May 28 6:31pm Reason for Referral Specialty Diagnoses / Procedures Referred By Contac t Referred To Contact General Surgery Diagnoses History of colonic polyps Procedures CONSULT TO GENERAL SURGERY OFFICE/OUTPATIENT [facility] 60-74 MINUTES Padmini Solorzano PA-C [address] [place] [address] Referral ID Status Reason Start Date Expiration Date Visits Requested Visits Authorized [id number] Authorized PCP Requested Referral 05/26/2021 05/26/2022 1 1 Specialty Diagnoses / Procedures Referred By Contac t Referred To Contact Ent - Otolaryngology Diagnoses Lip lesion Procedures CONSULT TO ENT OFFICE/OUTPATIENT [facility] 60-74 MINUTES Dewayne Chung MD [address] [place] [address] Referral ID Status Reason Start Date Expiration Date Visits Requested Visits Authorized [id number] Pending Review PCP Requested Referral 06/15/2022 06/15/2023 [...] RATE&O2 SAT EFFORT UNATT Dewayne Chung MD [address] [place] [address] [facility] [address] [place] [address] Referral ID Status Reason Start Date Expiration Date Visits Requested Visits Authorized [id number] Authorized Auto-Generat ed Referral 06/15/2022 06/15/2023 1 1 Specialty Diagnoses / Procedures Referred By Contac t Referred To Contact [facility] Diagnoses Smoker Pulmonary emphysema, unspecified emphysema type (HCC) Cough, persistent Procedures SPIROMETRY - BASELINE AND POST DILATOR BRNCDILAT RSPSE SPMTRY PRE&POST-BRNCDILAT ADMN Dewayne Chung MD [address] [place] [address] [facility] [address] [place] [address] Referral ID Status Reason Start Date Expiration Date Visits Requested Visits Authorized [id number] Authorized Auto-Generat ed Referral 06/15/2022 07/15/2023 1 1 Specialty Diagnoses / Procedures Referred By Contac t Referred To Contact CT IMAGING Diagnoses Encounter for screening for lung cancer Tobacco use current Procedures CT LUNG SCREEN WO IVCON COMPUTED TOMOGRAPHY THORAX LW DOSE LNG CA Dorian Guan APRN.HARMONIC ANALYST [address] [place] [address] Ct Imaging Referral ID Status Reason Start Date Expiration Date Visits Requested Visits Authorized [id number] Authorized Auto-Generat ed Referral 06/24/2022 07/24/2023 1 1 Specialty Diagnoses / Procedures Referred By Contac t Referred To Contact Diagnoses Moderate obstructive sleep apnea Procedures CONSULT TO SLEEP MEDICINE - ADULT OFFICE/OUTPATIENT [facility] 60-74 MINUTES Dewayne Chung MD [address] [place] [address] Referral ID Status Reason Start Date Expiration Date Visits Requested Visits Authorized [id number] Pending Review PCP Requested Referral 08/03/2022 08/03/2023 1 1 Referral ID Status Reason Start Date Expiration Date Visits Requested Visits Authorized [id number] Pending Review Auto-Generat ed Referral 08/26/2023 09/24/2023 1 1 Specialty Diagnoses / Procedures Referred By Contac t Referred To Contact Gynecology Diagnoses Obesity, Class III, BMI 40-49.9 (morbid obesity) (HCC) Procedures CONSULT TO GYNECOLOGY OFFICE/OUTPATIENT [facility] 60-74 MINUTES Padmini Solorzano PA-C [address] [place] [address] Referral ID Status Reason Start Date Expiration Date Visits Requested Visits Authorized [id number] Authorized PCP Requested Referral Auto-Generate d Referral 10/28/2022 10/28/2023 1 1 Specialty Diagnoses / Procedures Referred By Contac t Referred To Contact CT IMAGING Diagnoses Encounter for screening for lung cancer Tobacco use current Procedures CT LUNG SCREEN WO IVCON COMPUTED TOMOGRAPHY THORAX LW DOSE LNG CA Dorian Guan, DOPER.HARMONIC ANALYST [address] [place] [address] Ct [facility] [place] [address] Referral ID Status Reason Start Date Expiration Date V isits Requested Visits Authorized [id number] Closed Auto-Generate d Referral 06/24/2022 07/24/2023 1 1 Specialty Diagnoses / Procedures Referred By Contac t Referred To Contact Pulmonary and Critical Care Medicine Diagnoses MÓNICA (obstructive sleep apnea) Nocturnal hypoxia Chronic obstructive pulmonary disease, unspecified COPD type (HCC) Moderate smoker (20 or less per day) Procedures CONSULT TO PULM/CRITICAL CARE OFFICE/OUTPATIENT [facility] 60 MINUTES Deonte Douglas, DOPER.HARMONIC ANALYST [address] [place] [address] Referral ID Status Reason Start Date Expiration Date Visits Requested Visits Authorized [id number] Authorized PCP Requested Referral 09/24/2023 09/23/2024 1 1 Referral ID Status Reason Start Date Expiration Date Visits Requested Visits Authorized [id number] New Request Auto-Generat ed Referral 10/18/2023 11/16/2024 1 1 Specialty Diagnoses / Procedures Referred By Contac t Referred To Contact [facility] Diagnoses Chronic 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 Procedures CONSULT TO PHYSICAL THERAPY PHYSICAL THERAPY EVALUATION HIGH COMPLEX 45 MINS Allie Lemus, DOPER.HARMONIC ANALYST [address] [place] [address] [facility] [address] [place] [address] Referral ID Status Reason Start Date Expiration Date Visits Requested Visits Authorized [id number] Authorized Auto-Generat ed Referral 03/01/2023 02/29/2024 99 99 Specialty Diagnoses / Procedures Referred By Contac t Referred To Contact Neurosurgery Diagnoses Lumbar disc herniation Degeneration of intervertebral disc of lumbar region with discogenic back pain and lower extremity pain Acute right-sided low back pain with right-sided sciatica Procedures CONSULT TO NEUROSURGERY OFFICE/OUTPATIENT [facility] 60 MINUTES Dewayne Chung MD [address] [place] [address] Referral ID Status Reason Start Date Expiration Date Visits Requested Visits Authorized [id number] Authorized PCP Requested Referral 4 02/15/2025 1 1 Medications Administered Section Inactive Administered [...] Given 07/24/2021 9:22 AM EDT 50 mcg Given 07/24/2021 9:16 AM EDT 50 mcg lactated ringers iv infusion 30 mL/hr, INTRAVENOUS, CONTINUOUS, Starting on Aixa 07/24/21 at 0900, Until Aixa 07/24/21 at 0952, Preprocedure New Bag/Syringe/Bottle 07/24/2021 9:04 AM EDT 30 mL/hr 30 mL/hr Arm, Right midazolam (PF) 1-5 mg injection (VERSED) 1-5 mg, INTRAVENOUS, DIRECTED, Starting on Aixa 07/24/21 at 0930, Until Aixa 07/24/21 at 1329, DOSING DIRECTED BY PHYSICIAN FOR PROCEDURAL SEDATION ONLY, Intraprocedure Given 07/24/2021 9:20 AM EDT 2 mg Given 07/24/2021 9:16 AM EDT 3 mg Chief Complaint and Reason for Visit Chief Complaint MOTH IN EAR Chief Complaint BITE Chief Complaint BITE WOUND Chief Complaint BITE WOUND CELLULITIS Chief Complaint BITE WOUND CELLULITIS MÓNICA Chief Complaint BITE WOUND CELLULITIS MÓNICA MÓNICA; AUTO CPAP *INVENTORY TAGGED Chief Complaint BITE WOUND CELLULITIS MÓNICA MÓNICA; AUTO CPAP *INVENTORY TAGGED DOG BITE Chief Complaint BITE WOUND CELLULITIS MÓNICA MÓNICA; AUTO CPAP *INVENTORY TAGGED DOG BITE CORONARY ARTERY CALC, SOB, DECREASED STAMINA CORONARY ARTERY CALC, SOB, DECREASED STAMINA Chief Complaint URINARY SX Chief Complaint URINARY SX ABD PAIN Additional Source Comments INFORMATION SOURCE (unrecogn ized section and content) DATE CREATED AUTHOR 12/03/2018 [facility] DATE CREATED AUTHOR AUTHOR'S ORGANIZ ATION 06/19/2022 [facility] DATE CREATED AUTHOR AUTHOR'S ORGANIZ ATION 08/26/2022 [facility] nt DATE CREATED AUTHOR AUTHOR'S ORGANIZ ATION 04/30/2024 [facility] DATE CREATED AUTHOR AUTHOR'S ORGANIZ ATION 07/08/2024 [facility] Source Comments (unrecognize d section and content) In the event this informatio n is protected by the Federal Confidentiality of Alcohol and Drug Abuse Patient Records regulations: The Federal rules restrict any use of the information to criminally investigate or prosecute any alcohol or drug abuse patient.[facility] the event this information is protected by the Federal Confidentiality of Alcohol and Drug Abuse Patient Records regulations: The Federal rules restrict any use of the information to criminally investigate or prosecute any alcohol or drug abuse patient.[facility] CenterIn the event this information is protected by the Federal Confidentiality of Alcohol and Drug Abuse Patient Records regulations: The Federal rules restrict any use of the information to criminally investigate or prosecute any alcohol or drug abuse patient.[facility] CenterIn the event this information is protected by the Federal Confidentiality of Alcohol and Drug Abuse Patient Records regulations: The Federal rules restrict any use of the information to criminally investigate or prosecute any alcohol or drug abuse patient.[facility] CenterIn the event this information is protected by the Federal Confidentiality of Alcohol and Drug Abuse Patient Records regulations: The Federal rules restrict any use of the information to criminally investigate or prosecute any alcohol or drug abuse patient.[facility] CenterIn the event this information is protected by the Federal Confidentiality of Alcohol and Drug Abuse Patient Records regulations: The Federal rules restrict any use of the information to criminally investigate or prosecute any alcohol or drug abuse patient.[facility] CenterIn the event this information is protected by the Federal Confidentiality of Alcohol and Drug Abuse Patient Records regulations: The Federal rules restrict any use of the information to criminally investigate or prosecute any alcohol or drug abuse patient.[facility] CenterIn the event this information is protected by the Federal Confidentiality of Alcohol and Drug Abuse Patient Records regulations: The Federal rules restrict any use of the information to criminally investigate or prosecute any alcohol or drug abuse patient.[facility] CenterIn the event this information is protected by the Federal Confidentiality of Alcohol and Drug Abuse Patient Records regulations: The Federal rules restrict any use of the information to criminally investigate or prosecute any alcohol or drug abuse patient.[facility] CenterIn the event this information is protected by the Federal Confidentiality of Alcohol and Drug Abuse Patient Records regulations: The Federal rules restrict any use of the information to criminally investigate or prosecute any alcohol or drug abuse patient.[facility] CenterIn the event this information is protected by the Federal Confidentiality of Alcohol and Drug Abuse Patient Records regulations: The Federal rules restrict any use of the information to criminally investigate or prosecute any alcohol or drug abuse patient.[facility] CenterIn the event this information is protected by the Federal Confidentiality of Alcohol and Drug Abuse Patient Records regulations: The Federal rules restrict any use of the information to criminally investigate or prosecute any alcohol or drug abuse patient.[facility] CenterIn the event this information is protected by the Federal Confidentiality of Alcohol and Drug Abuse Patient Records regulations: The Federal rules restrict any use of the information to criminally investigate or prosecute any alcohol or drug abuse patient.[facility] CenterIn the event this information is protected by the Federal Confidentiality of Alcohol and Drug Abuse Patient Records regulations: The Federal rules restrict any use of the information to criminally investigate or prosecute any alcohol or drug abuse patient.[facility] CenterIn the event this information is protected by the Federal Confidentiality of Alcohol and Drug Abuse Patient Records regulations: The Federal rules restrict any use of the information to criminally investigate or prosecute any alcohol or drug abuse patient.[facility] CenterIn the event this information is protected by the Federal Confidentiality of Alcohol and Drug Abuse Patient Records regulations: The Federal rules restrict any use of the information to criminally investigate or prosecute any alcohol or drug abuse patient.[facility] CenterIn the event this information is protected by the Federal Confidentiality of Alcohol and Drug Abuse Patient Records regulations: The Federal rules restrict any use of the information to criminally investigate or prosecute any alcohol or drug abuse patient.[facility] CenterIn the event this information is protected by the Federal Confidentiality of Alcohol and Drug Abuse Patient Records regulations: The Federal rules restrict any use of the information to criminally investigate or prosecute any alcohol or drug abuse patient.[facility] CenterIn the event this information is protected by the Federal Confidentiality of Alcohol and Drug Abuse Patient Records regulations: The Federal rules restrict any use of the information to criminally investigate or prosecute any alcohol or drug abuse patient.[facility] CenterIn the event this information is protected by the Federal Confidentiality of Alcohol and Drug Abuse Patient Records regulations: The Federal rules restrict any use of the information to criminally investigate or prosecute any alcohol or drug abuse patient.[facility] CenterIn the event this information is protected by the Federal Confidentiality of Alcohol and Drug Abuse Patient Records regulations: The Federal rules restrict any use of the information to criminally investigate or prosecute any alcohol or drug abuse patient.[facility] CenterIn the event this information is protected by the Federal Confidentiality of Alcohol and Drug Abuse Patient Records regulations: The Federal rules restrict any use of the information to criminally investigate or prosecute any alcohol or drug abuse patient.[facility] CenterIn the event this information is protected by the Federal Confidentiality of Alcohol and Drug Abuse Patient Records regulations: The Federal rules restrict any use of the information to criminally investigate or prosecute any alcohol or drug abuse patient.[facility] CenterIn the event this information is protected by the Federal Confidentiality of Alcohol and Drug Abuse Patient Records regulations: The Federal rules restrict any use of the information to criminally investigate or prosecute any alcohol or drug abuse patient.[facility] CenterIn the event this information is protected by the Federal Confidentiality of Alcohol and Drug Abuse Patient Records regulations: The Federal rules restrict any use of the information to criminally investigate or prosecute any alcohol or drug abuse patient.[facility] CenterIn the event this information is protected by the Federal Confidentiality of Alcohol and Drug Abuse Patient Records regulations: The Federal rules restrict any use of the information to criminally investigate or prosecute any alcohol or drug abuse patient.[facility] CenterIn the event this information is protected by the Federal Confidentiality of Alcohol and Drug Abuse Patient Records regulations: The Federal rules restrict any use of the information to criminally investigate or prosecute any alcohol or drug abuse patient.[facility] CenterIn the event this information is protected by the Federal Confidentiality of Alcohol and Drug Abuse Patient Records regulations: The Federal rules restrict any use of the information to criminally investigate or prosecute any alcohol or drug abuse patient.[facility] CenterIn the event this information is protected by the Federal Confidentiality of Alcohol and Drug Abuse Patient Records regulations: The Federal rules restrict any use of the information to criminally investigate or prosecute any alcohol or drug abuse patient.[facility] CenterIn the event this information is protected by the Federal Confidentiality of Alcohol and Drug Abuse Patient Records regulations: The Federal rules restrict any use of the information to criminally investigate or prosecute any alcohol or drug abuse patient.[facility] CenterIn the event this information is protected by the Federal Confidentiality of Alcohol and Drug Abuse Patient Records regulations: The Federal rules restrict any use of the information to criminally investigate or prosecute any alcohol or drug abuse patient.[facility] CenterIn the event this information is protected by the Federal Confidentiality of Alcohol and Drug Abuse Patient Records regulations: The Federal rules restrict any use of the information to criminally investigate or prosecute any alcohol or drug abuse patient.[facility] CenterIn the event this information is protected by the Federal Confidentiality of Alcohol and Drug Abuse Patient Records regulations: The Federal rules restrict any use of the information to criminally investigate or prosecute any alcohol or drug abuse patient.[facility] CenterIn the event this information is protected by the Federal Confidentiality of Alcohol and Drug Abuse Patient Records regulations: The Federal rules restrict any use of the information to criminally investigate or prosecute any alcohol or drug abuse patient.[facility] CenterIn the event this information is protected by the Federal Confidentiality of Alcohol and Drug Abuse Patient Records regulations: The Federal rules restrict any use of the information to criminally investigate or prosecute any alcohol or drug abuse patient.[facility] CenterIn the event this information is protected by the Federal Confidentiality of Alcohol and Drug Abuse Patient Records regulations: The Federal rules restrict any use of the information to criminally investigate or prosecute any alcohol or drug abuse patient.[facility] CenterIn the event this information is protected by the Federal Confidentiality of Alcohol and Drug Abuse Patient Records regulations: The Federal rules restrict any use of the information to criminally investigate or prosecute any alcohol or drug abuse patient.[facility] CenterIn the event this information is protected by the Federal Confidentiality of Alcohol and Drug Abuse Patient Records regulations: The Federal rules restrict any use of the information to criminally investigate or prosecute any alcohol or drug abuse patient.[facility] CenterIn the event this information is protected by the Federal Confidentiality of Alcohol and Drug Abuse Patient Records regulations: The Federal rules restrict any use of the information to criminally investigate or prosecute any alcohol or drug abuse patient.[facility] CenterIn the event this information is protected by the Federal Confidentiality of Alcohol and Drug Abuse Patient Records regulations: The Federal rules restrict any use of the information to criminally investigate or prosecute any alcohol or drug abuse patient.[facility] CenterIn the event this information is protected by the Federal Confidentiality of Alcohol and Drug Abuse Patient Records regulations: The Federal rules restrict any use of the information to criminally investigate or prosecute any alcohol or drug abuse patient.[facility] CenterIn the event this information is protected by the Federal Confidentiality of Alcohol and Drug Abuse Patient Records regulations: The Federal rules restrict any use of the information to criminally investigate or prosecute any alcohol or drug abuse patient.[facility] CenterIn the event this information is protected by the Federal Confidentiality of Alcohol and Drug Abuse Patient Records regulations: The Federal rules restrict any use of the information to criminally investigate or prosecute any alcohol or drug abuse patient.[facility] CenterIn the event this information is protected by the Federal Confidentiality of Alcohol and Drug Abuse Patient Records regulations: The Federal rules restrict any use of the information to criminally investigate or prosecute any alcohol or drug abuse patient.[facility] CenterIn the event this information is protected by the Federal Confidentiality of Alcohol and Drug Abuse Patient Records regulations: The Federal rules restrict any use of the information to criminally investigate or prosecute any alcohol or drug abuse patient.[facility] CenterIn the event this information is protected by the Federal Confidentiality of Alcohol and Drug Abuse Patient Records regulations: The Federal rules restrict any use of the information to criminally investigate or prosecute any alcohol or drug abuse patient.[facility] CenterIn the event this information is protected by the Federal Confidentiality of Alcohol and Drug Abuse Patient Records regulations: The Federal rules restrict any use of the information to criminally investigate or prosecute any alcohol or drug abuse patient.[facility] CenterIn the event this information is protected by the Federal Confidentiality of Alcohol and Drug Abuse Patient Records regulations: The Federal rules restrict any use of the information to criminally investigate or prosecute any alcohol or drug abuse patient.[facility] CenterIn the event this information is protected by the Federal Confidentiality of Alcohol and Drug Abuse Patient Records regulations: The Federal rules restrict any use of the information to criminally investigate or prosecute any alcohol or drug abuse patient.[facility] CenterIn the event this information is protected by the Federal Confidentiality of Alcohol and Drug Abuse Patient Records regulations: The Federal rules restrict any use of the information to criminally investigate or prosecute any alcohol or drug abuse patient.[facility] CenterIn the event this information is protected by the Federal Confidentiality of Alcohol and Drug Abuse Patient Records regulations: The Federal rules restrict any use of the information to criminally investigate or prosecute any alcohol or drug abuse patient.[facility] CenterIn the event this information is protected by the Federal Confidentiality of Alcohol and Drug Abuse Patient Records regulations: The Federal rules restrict any use of the information to criminally investigate or prosecute any alcohol or drug abuse patient.[facility] CenterIn the event this information is protected by the Federal Confidentiality of Alcohol and Drug Abuse Patient Records regulations: The Federal rules restrict any use of the information to criminally investigate or prosecute any alcohol or drug abuse patient.[facility] CenterIn the event this information is protected by the Federal Confidentiality of Alcohol and Drug Abuse Patient Records regulations: The Federal rules restrict any use of the information to criminally investigate or prosecute any alcohol or drug abuse patient.[facility] CenterIn the event this information is protected by the Federal Confidentiality of Alcohol and Drug Abuse Patient Records regulations: The Federal rules restrict any use of the information to criminally investigate or prosecute any alcohol or drug abuse patient.[facility] CenterIn the event this information is protected by the Federal Confidentiality of Alcohol and Drug Abuse Patient Records regulations: The Federal rules restrict any use of the information to criminally investigate or prosecute any alcohol or drug abuse patient.[facility] CenterIn the event this information is protected by the Federal Confidentiality of Alcohol and Drug Abuse Patient Records regulations: The Federal rules restrict any use of the information to criminally investigate or prosecute any alcohol or drug abuse patient.[facility] CenterIn the event this information is protected by the Federal Confidentiality of Alcohol and Drug Abuse Patient Records regulations: The Federal rules restrict any use of the information to criminally investigate or prosecute any alcohol or drug abuse patient.[facility] CenterIn the event this information is protected by the Federal Confidentiality of Alcohol and Drug Abuse Patient Records regulations: The Federal rules restrict any use of the information to criminally investigate or prosecute any alcohol or drug abuse patient.[facility] CenterIn the event this information is protected by the Federal Confidentiality of Alcohol and Drug Abuse Patient Records regulations: The Federal rules restrict any use of the information to criminally investigate or prosecute any alcohol or drug abuse patient.[facility] CenterIn the event this information is protected by the Federal Confidentiality of Alcohol and Drug Abuse Patient Records regulations: The Federal rules restrict any use of the information to criminally investigate or prosecute any alcohol or drug abuse patient.[facility] CenterIn the event this information is protected by the Federal Confidentiality of Alcohol and Drug Abuse Patient Records regulations: The Federal rules restrict any use of the information to criminally investigate or prosecute any alcohol or drug abuse patient.[facility] CenterIn the event this information is protected by the Federal Confidentiality of Alcohol and Drug Abuse Patient Records regulations: The Federal rules restrict any use of the information to criminally investigate or prosecute any alcohol or drug abuse patient.[facility] CenterIn the event this information is protected by the Federal Confidentiality of Alcohol and Drug Abuse Patient Records regulations: The Federal rules restrict any use of the information to criminally investigate or prosecute any alcohol or drug abuse patient.[facility] CenterIn the event this information is protected by the Federal Confidentiality of Alcohol and Drug Abuse Patient Records regulations: The Federal rules restrict any use of the information to criminally investigate or prosecute any alcohol or drug abuse patient.[facility] CenterIn the event this information is protected by the Federal Confidentiality of Alcohol and Drug Abuse Patient Records regulations: The Federal rules restrict any use of the information to criminally investigate or prosecute any alcohol or drug abuse patient.[facility] CenterIn the event this information is protected by the Federal Confidentiality of Alcohol and Drug Abuse Patient Records regulations: The Federal rules restrict any use of the information to criminally investigate or prosecute any alcohol or drug abuse patient.[facility] CenterIn the event this information is protected by the Federal Confidentiality of Alcohol and Drug Abuse Patient Records regulations: The Federal rules restrict any use of the information to criminally investigate or prosecute any alcohol or drug abuse patient.[facility] CenterIn the event this information is protected by the Federal Confidentiality of Alcohol and Drug Abuse Patient Records regulations: The Federal rules restrict any use of the information to criminally investigate or prosecute any alcohol or drug abuse patient.[facility] CenterIn the event this information is protected by the Federal Confidentiality of Alcohol and Drug Abuse Patient Records regulations: The Federal rules restrict any use of the information to criminally investigate or prosecute any alcohol or drug abuse patient.[facility] CenterIn the event this information is protected by the Federal Confidentiality of Alcohol and Drug Abuse Patient Records regulations: The Federal rules restrict any use of the information to criminally investigate or prosecute any alcohol or drug abuse patient.[facility] CenterIn the event this information is protected by the Federal Confidentiality of Alcohol and Drug Abuse Patient Records regulations: The Federal rules restrict any use of the information to criminally investigate or prosecute any alcohol or drug abuse patient.[facility] CenterIn the event this information is protected by the Federal Confidentiality of Alcohol and Drug Abuse Patient Records regulations: The Federal rules restrict any use of the information to criminally investigate or prosecute any alcohol or drug abuse patient.[facility] CenterIn the event this information is protected by the Federal Confidentiality of Alcohol and Drug Abuse Patient Records regulations: The Federal rules restrict any use of the information to criminally investigate or prosecute any alcohol or drug abuse patient.[facility] CenterIn the event this information is protected by the Federal Confidentiality of Alcohol and Drug Abuse Patient Records regulations: The Federal rules restrict any use of the information to criminally investigate or prosecute any alcohol or drug abuse patient.[facility] CenterIn the event this information is protected by the Federal Confidentiality of Alcohol and Drug Abuse Patient Records regulations: The Federal rules restrict any use of the information to criminally investigate or prosecute any alcohol or drug abuse patient.[facility] CenterIn the event this information is protected by the Federal Confidentiality of Alcohol and Drug Abuse Patient Records regulations: The Federal rules restrict any use of the information to criminally investigate or prosecute any alcohol or drug abuse patient.[facility] CenterIn the event this information is protected by the Federal Confidentiality of Alcohol and Drug Abuse Patient Records regulations: The Federal rules restrict any use of the information to criminally investigate or prosecute any alcohol or drug abuse patient.[facility] CenterIn the event this information is protected by the Federal Confidentiality of Alcohol and Drug Abuse Patient Records regulations: The Federal rules restrict any use of the information to criminally investigate or prosecute any alcohol or drug abuse patient.[facility] CenterIn the event this information is protected by the Federal Confidentiality of Alcohol and Drug Abuse Patient Records regulations: The Federal rules restrict any use of the information to criminally investigate or prosecute any alcohol or drug abuse patient.[facility] CenterIn the event this information is protected by the Federal Confidentiality of Alcohol and Drug Abuse Patient Records regulations: The Federal rules restrict any use of the information to criminally investigate or prosecute any alcohol or drug abuse patient.[facility] CenterIn the event this information is protected by the Federal Confidentiality of Alcohol and Drug Abuse Patient Records regulations: The Federal rules restrict any use of the information to criminally investigate or prosecute any alcohol or drug abuse patient.[facility] CenterIn the event this information is protected by the Federal Confidentiality of Alcohol and Drug Abuse Patient Records regulations: The Federal rules restrict any use of the information to criminally investigate or prosecute any alcohol or drug abuse patient.[facility] CenterIn the event this information is protected by the Federal Confidentiality of Alcohol and Drug Abuse Patient Records regulations: The Federal rules restrict any use of the information to criminally investigate or prosecute any alcohol or drug abuse patient.[facility] CenterIn the event this information is protected by the Federal Confidentiality of Alcohol and Drug Abuse Patient Records regulations: The Federal rules restrict any use of the information to criminally investigate or prosecute any alcohol or drug abuse patient.[facility] CenterIn the event this information is protected by the Federal Confidentiality of Alcohol and Drug Abuse Patient Records regulations: The Federal rules restrict any use of the information to criminally investigate or prosecute any alcohol or drug abuse patient.[facility] CenterIn the event this information is protected by the Federal Confidentiality of Alcohol and Drug Abuse Patient Records regulations: The Federal rules restrict any use of the information to criminally investigate or prosecute any alcohol or drug abuse patient.[facility] CenterIn the event this information is protected by the Federal Confidentiality of Alcohol and Drug Abuse Patient Records regulations: The Federal rules restrict any use of the information to criminally investigate or prosecute any alcohol or drug abuse patient.[facility] CenterIn the event this information is protected by the Federal Confidentiality of Alcohol and Drug Abuse Patient Records regulations: The Federal rules restrict any use of the information to criminally investigate or prosecute any alcohol or drug abuse patient.[facility] CenterIn the event this information is protected by the Federal Confidentiality of Alcohol and Drug Abuse Patient Records regulations: The Federal rules restrict any use of the information to criminally investigate or prosecute any alcohol or drug abuse patient.[facility] CenterIn the event this information is protected by the Federal Confidentiality of Alcohol and Drug Abuse Patient Records regulations: The Federal rules restrict any use of the information to criminally investigate or prosecute any alcohol or drug abuse patient.[facility] CenterIn the event this information is protected by the Federal Confidentiality of Alcohol and Drug Abuse Patient Records regulations: The Federal rules restrict any use of the information to criminally investigate or prosecute any alcohol or drug abuse patient.[facility] CenterIn the event this information is protected by the Federal Confidentiality of Alcohol and Drug Abuse Patient Records regulations: The Federal rules restrict any use of the information to criminally investigate or prosecute any alcohol or drug abuse patient.[facility] CenterIn the event this information is protected by the Federal Confidentiality of Alcohol and Drug Abuse Patient Records regulations: The Federal rules restrict any use of the information to criminally investigate or prosecute any alcohol or drug abuse patient.[facility] Reason for Visit (unrecogniz ed section and content) Reason Comments PT Discharge Specialty Diagnoses / Procedures Referred By Contac t Referred To Contact PHYSICAL THERAPY Diagnoses 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, G89.29] Procedures NEW PATIENT VISIT LEVEL 1 Allie Lemus APRN.HARMONIC ANALYST [address] [place] [address] Phone: tel: fax: [facility] [address] [place] [address] Phone: tel: fax: Referral ID Status Reason Start Date Expiration Date V isits Requested Visits Authorized [id number] Authorized 03/01/2024 02/28/2025 99 99 Reason Comments Physical Therapy Reason Comments Medicare Wellness Exam Specialty Diagnoses / Procedures Referred By Alta t Referred To Contact Family Practice / FAMILY MEDICINE Diagnoses Medicare Wellness Procedures 4C EST WELL Padmini Solorzano PA-C [address] [place] [address] Padmini Solorzano PA-C [address] [place] [address] Referral ID Status Reason Start Date Expiration Date V isits Requested Visits Authorized [id number] Closed Patient Cleared INN/SMCP Payor Auth Obtained 05/26/2021 02/28/2022 1 1 Reason Comments Results Reason Comments 07-24-2021 COLON ASC Reason Comments Follow Up colonoscopy follow u p Specialty Diagnoses / Procedures Referred By Alta t Referred To Contact General Surgery / GENERAL SURGERY Diagnoses colonoscopy follow up Procedures EST DDI PATIENT Douglas Corral MD [address] [place] [address] Nettie Sanchez PA-C [address] [place] [address] Referral ID Status Reason Start Date Expiration Date Visits Re quested Visits Authorized [id number] Closed 08/11/2021 02/28/2022 1 1 Reason Comments 6 Month Exam Specialty Diagnoses / Procedures Referred By Alta t Referred To Contact Family Medicine / FAMILY MEDICINE Diagnoses 6 month f/u Procedures 4C EST Padmini Solorzano PA-C [address] [place] [address] Padmini Solorzano PA-C [address] [place] [address] Referral ID Status Reason Start Date Expiration Date Visits Re quested Visits Authorized [id number] Closed 11/26/2021 02/28/2022 1 1 Reason Comments Orders Reason Comments requesting medication today Reason Comments Chest Congestion cough, sob x 1 week Reason Onset Date Comments Refill Request 06/11/2022 Reason Comments Medicare Wellness Exam Reason Comments New Patient LCS Reason Comments Spirometry Specialty Diagnoses / Procedures Referred By Contac t Referred To Contact [facility] Diagnoses Smoker Pulmonary emphysema, unspecified emphysema type (HCC) Cough, persistent Procedures SPIROMETRY - BASELINE AND POST DILATOR BRNCDILAT RSPSE SPMTRY PRE&POST-BRNCDILAT Dewayne Palacios MD [address] [place] [address] [facility] [address] [place] [address] Referral ID Status Reason Start Date Expiration Date V isits Requested Visits Authorized [id number] Closed Auto-Generate d Referral 06/15/2022 07/15/2023 1 [...] HIGH MDM 60-74 MINUTES Padmini Solorzano PA-C [address] [place] [address] Referral ID Status Reason Start Date Expiration Date Visits Requested Visits Authorized [id number] Authorized PCP Requested Referral Auto-Generate d Referral 10/28/2022 10/28/2023 1 1 Reason Onset Date Comments Refill Request 12/09/2022 Reason Comments Refill Request Reason Comments Radiology CT Specialty Diagnoses / Procedures Referred By Contac t Referred To Contact CT IMAGING Diagnoses Encounter for screening for lung cancer Tobacco use current Procedures CT LUNG SCREEN WO IVCON COMPUTED TOMOGRAPHY THORAX LW DOSE LNG CA Dorian Guan, WING.HARMONIC ANALYST [address] [place] [address] [facility] [place] [address] Referral ID Status Reason Start Date Expiration Date V isits Requested Visits Authorized [id number] Closed Auto-Generate d Referral 06/24/2022 07/24/2023 1 1 Reason Comments Urinary Frequency Frequency and pressu re x 1 week Reason Comments Cough SOB, chest congestio n, chills, ST, neck pain, rib pain x2 days Reason Comments PAP Therapy Follow Up 04/06/23 - 05/05/23 Reason Onset Date Comments Population Health Navigation Outreach 06/23/2023 [facility] [place] PCSA Reason Comments PAP Therapy Follow Up 06/14/23 - 07/13/23 Reason Comments Follow Up Pt reported nasal co ngestion, ER visit x1 month. Reason Comments Lab Orders Reason Comments PAP Therapy Follow Up Reason Comments Radiology CT Specialty Diagnoses / Procedures Referred By Contac t Referred To Contact CT IMAGING Diagnoses Encounter for screening for lung cancer Tobacco use current Procedures CT LUNG SCREEN WO IVCON COMPUTED TOMOGRAPHY THORAX LW DOSE LNG Dorian Berrios, WING.HARMONIC ANALYST [address] [place] [address] [facility] [place] [address] Referral ID Status Reason Start Date Expiration Date V isits Requested Visits Authorized [id number] Closed Auto-Generate d Referral 08/26/2023 09/24/2023 1 1 Reason Comments Follow Up Reason Onset Date Comments Refill Request 10/04/2023 Reason Comments Established Patient Reason Comments Medication Dosage Adjustment Reason Comments Chest Congestion cough x 2-3 days Specialty Diagnoses / Procedures Referred By Contac t Referred To Contact Plastic Surgery / FAMILY MEDICINE Diagnoses 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 Procedures CONSULT TO PLASTIC SURGERY NEW PATIENT VISIT LEVEL 5 Dewayne Chung MD [address] [place] [address] [facility] [address] [place] [address] Referral ID Status Reason Start Date Expiration Date V isits Requested Visits Authorized [id number] Closed PCP Requested Referral 02/07/2021 02/28/2021 1 1 Reason Comments New Patient COPD Specialty Diagnoses / Procedures Referred By Aidaac t Referred To Contact Pulmonary and Critical Care Medicine Diagnoses MÓNICA (obstructive sleep apnea) Nocturnal hypoxia Chronic obstructive pulmonary disease, unspecified COPD type (HCC) Moderate smoker (20 or less per day) Procedures CONSULT TO PULM/CRITICAL CARE OFFICE/OUTPATIENT NEW HIGH MDM 60 MINUTES Deonte Douglas, WING.HARMONIC ANALYST [address] [place] [address] Referral ID Status Reason Start Date Expiration Date V isits Requested Visits Authorized [id number] Closed PCP Requested Referral 09/24/2023 09/23/2024 1 1 Reason Comments Question Reason Comments Sleep Problem Reason Comments F/U 6 months Reason Comments Trigger Finger Reason Comments Patient Question Reason Comments Established Patient COPD follow up COPD Reason Comments Lesion Removal Reason Comments Consult Outside consult - or tho Reason Comments PT Eval Care Teams (unrecognized sec tion and content) Pan Puller Relationship Specialty Start Date End Date Dewayne Chung MD [address] [place] [address] [phone] PCP - General Family Practice 11/23/17 Pan Puller Relationship Specialty Start Date End Date Dewayne Chung MD [address] [place] [phone] PCP - General Family Practice 11/23/17 Pan Puller Relationship Specialty Start Date End Date Dewayne Chung MD [address] [place] [phone] PCP - General Family Practice 11/23/17 Pan Puller Relationship Specialty Start Date End Date Dewayne Chung MD [address] [place] [address] PCP - General Family Practice 11/23/17 Pan Puller Relationship Specialty Start Date End Date Dewayne Chung MD [address] [place] [address] PCP - General Family Practice 11/23/17 Pan Puller Relationship Specialty Start Date End Date Dewayne Chung MD [address] [place] [address] PCP - General Family Practice 11/23/17 Pan Puller Relationship Specialty Start Date End Date Dewayne Chung MD [address] [facility] [place] [address] PCP - General Family Practice 11/23/17 Pan Puller Relationship Specialty Start Date End Date Dewayne Chung MD [employer] [place] [address] PCP - General Family Medicine 11/23/17 Pan Puller Relationship Specialty Start Date End Date Dewayne Chung MD [address] [place] [address] PCP - General Family Medicine 11/23/17 Pan Puller Relationship Specialty Start Date End Date Dewayne Chung MD [employer] [place] [address] PCP - General Family Medicine 11/23/17 Pan Puller Relationship Specialty Start Date End Date Dewayne Chung MD [employer] [place] [address] PCP - General Family Medicine 11/23/17 Pan Puller Relationship Specialty Start Date End Date Dewayne Chung MD [employer] [facility] [place] [address] PCP - General Family Medicine 11/23/17 Pan Puller Relationship Specialty Start Date End Date Dewayne Chung MD [address] [place] [address] [place] [address] PCP - General Family Medicine 11/23/17 Pan Puller Relationship Specialty Start Date End Date Dewayne Chung MD [address] [place] [address] PCP - General Family Medicine 11/23/17 Pan Puller Relationship Specialty Start Date End Date Dewayne Chung MD [address] [place] [address] PCP - General Family Medicine 11/23/17 Pan Puller Relationship Specialty Start Date End Date Dewayne Chung MD [address] [place] [address] PCP - General Family Medicine 11/23/17 Pan Puller Relationship Specialty Start Date End Date Dewayne Chung MD [address] [place] [address] PCP - General Family Medicine 11/23/17 Team Status: Active Member Role Status Dates Dr. Dewayne Chung MD Family Provider Active Dr. Dewayne Chung MD Primary Care Provider Active Team Status: Inactive Member Role Status Dates Dr. Dewayne Chung MD Primary Care Provider Active Dr. Delgado Santizo MD Emergency Provider Active Team Status: Inactive Member Role Status Dates Dr. Dewayne Chung MD Primary Care Provider Active Dr. Adan Werner DO Emergency Provider Active Team Status: Inactive Member Role Status Dates Dr. Dewayne Chung MD Primary Care Provider Active Dr. Marcus Westbrook MD Emergency Provider Active Pan Puller Relationship Specialty Start Date End Date Dewayne Chung MD [address] [place] [address] PCP - General Family Medicine 11/23/17 Pan Puller Relationship Specialty Start Date End Date Dewayne Chung MD [address] [place] [address] PCP - General Family Medicine 11/23/17 Team Status: Inactive Member Role Status Dates Dr. Dewayne Chung MD Primary Care Provider Active Dr. Delgado Santizo MD Attending Provider, Emergency Provider Active Team Status: Inactive Member Role Status Dates Dr. Dewayne Chung MD Primary Care Provider Active Dr. Adan Werner DO Attending Provider, Emergency P rovider Active Team Status: Inactive Member Role Status Dates Dr. Dewayne Chung MD Primary Care Provider Active Dr. Marcus Westbrook MD Attending Provider, Emergency Provi miguel Active Team Status: Inactive Member Role Status Dates Dr. Dewayne Chung MD Primary Care Provider Active Dr. Yan Bell MD Attending Provider, Referring P rovider Active Pan Puller Relationship Specialty Start Date End Date Dewayne Chung MD [address] [place] [address] PCP - General Family Medicine 11/23/17 Pan Puller Relationship Specialty Start Date End Date Dewayne Chung MD [address] [place] [address] PCP - General Family Medicine 11/23/17 Team Status: Inactive Member Role Status Dates Dr. Dewayne Chung MD Primary Care Provider Active Dr. Yan Bell MD Attending Provider Active Pan Puller Relationship Specialty Start Date End Date Dewayne Chung MD [address] [place] [address] PCP - General Family Medicine 11/23/17 Pan Puller Relationship Specialty Start Date End Date Dewayne Chung MD [address] [place] [address] PCP - General Family Medicine 11/23/17 Team Status: Active Member Role Status Dates Dr. Dewayne Chung MD Primary Care Pro vider, Referring Provider, Other Provider Active Dr. Osito Nichols MD Attending Provider Active Team Status: Inactive Member Role Status Dates Dr. Dewayne Chung MD Primary Care Pro vider, Attending Provider, Referring Provider Active Pan Puller Relationship Specialty Start Date End Date Dewayne Chung MD [address] [place] [address] PCP - General Family Medicine 11/23/17 Pan Puller Relationship Specialty Start Date End Date Dewayne Chung MD [address] [place] [address] PCP - General Family Medicine 11/23/17 Pan Puller Relationship Specialty Start Date End Date Dewayne Chung MD [address] [place] [address] PCP - General Family Medicine 11/23/17 Pan Puller Relationship Specialty Start Date End Date Dewayne Chung MD [address] [place] [address] PCP - General Family Medicine 11/23/17 Pan Puller Relationship Specialty Start Date End Date Dewayne Chung MD [address] [place] [address] PCP - General Family Medicine 11/23/17 Pan Puller Relationship Specialty Start Date End Date Dewayne Chung MD [address] [place] [address] PCP - General Family Medicine 11/23/17 Pan Puller Relationship Specialty Start Date End Date Dewayne Chung MD [address] [place] [address] PCP - General Family Medicine 11/23/17 Pan Puller Relationship Specialty Start Date End Date Dewayne Chung MD [address] [place] [address] PCP - General Family Medicine 11/23/17 Team Status: Inactive Member Role Status Dates Dr. Dewayne Chung MD Primary Care Provider Active Chon Chaudhry MD Emergency Provider Active Team Status: Inactive Member Role Status Dates Dr. Dewayne Chung MD Primary Care Provider Active Chon Chaudhry MD Attending Provider, Emergency Provid er Active Team Status: Inactive Member Role Status Dates Dr. Dewayne Chung MD Primary Care Provider Active Dr. Douglas Peck DO Emergency Provider Active Pan Puller Relationship Specialty Start Date End Date Dewayne Chung MD [address] [place] [address] PCP - General Family Medicine 11/23/17 Pan Puller Relationship Specialty Start Date End Date Dewayne Chung MD [address] [place] [address] PCP - General Family Medicine 11/23/17 Pan Puller Relationship Specialty Start Date End Date Dewayne Chung MD [address] [place] [address] PCP - General Family Medicine 11/23/17 Pan Puller Relationship Specialty Start Date End Date Dewayne Chung MD [address] [place] [address] PCP - General Family Medicine 11/23/17 Pan Puller Relationship Specialty Start Date End Date Dewayne Chung MD [address] [place] [address] PCP - General Family Medicine 11/23/17 Pan Puller Relationship Specialty Start Date End Date Dewayne Chung MD [address] [place] [address] PCP - General Family Medicine 11/23/17 Pan Puller Relationship Specialty Start Date End Date Dewayne Chung MD [address] [place] [address] PCP - General Family Medicine 11/23/17 Pan Puller Relationship Specialty Start Date End Date Dewayne Chung MD [address] [place] [address] PCP - General Family Medicine 11/23/17 Pan Puller Relationship Specialty Start Date End Date Dewayne Chung MD [address] [place] [address] PCP - General Family Medicine 11/23/17 Pan Puller Relationship Specialty Start Date End Date Dewayne Chung MD [address] [place] [address] PCP - General Family Medicine 11/23/17 Pan Puller Relationship Specialty Start Date End Date Dewayne Chung MD [address] [place] [address] PCP - General Family Medicine 11/23/17 Pan Puller Relationship Specialty Start Date End Date Dewayne Chung MD [address] [place] [address] PCP - General Family Medicine 11/23/17 Pan Puller Relationship Specialty Start Date End Date Dewayne Chung MD [address] [place] [address] PCP - General Family Medicine 11/23/17 Pan Puller Relationship Specialty Start Date End Date Dewayne Chung MD [address] [place] [address] PCP - General Family Medicine 11/23/17 Pan Puller Relationship Specialty Start Date End Date Dewayne Chung MD [address] [place] [address] PCP - General Family Medicine 11/23/17 Pan Puller Relationship Specialty Start Date End Date Dewayne Chung MD [address] [place] [address] PCP - General Family Medicine 11/23/17 Pan Puller Relationship Specialty Start Date End Date Dewayne Chung MD [address] [place] [address] PCP - General Family Medicine 11/23/17 Pan Puller Relationship Specialty Start Date End Date Dewayne Chung MD [address] [place] [address] PCP - General Family Medicine 11/23/17 Allie Lemus, WING.HARMONIC ANALYST [address] [place] [address] Arranging Funeral Director Family Medicine 02/05/24 Padmini Solorzano PA-C [address] [place] [address] Arranging Funeral Director Family Medicine 02/05/24 Pan Puller Relationship Specialty Start Date End Date Dewayne Chung MD [address] [place] [address] PCP - General Family Medicine 11/23/17 Allie Lemus, DOPER.HARMONIC ANALYST [address] [place] [address] Arranging Funeral Director Family Medicine 02/05/24 Padmini Solorzano PA-C [address] [place] [address] Arranging Funeral Director Family Medicine 02/05/24 Pan Puller Relationship Specialty Start Date End Date Dewayne Chung MD [address] [place] [address] PCP - General Family Medicine 11/23/17 Allie Lemus, WING.HARMONIC ANALYST [address] [facility] [place] [address] Arranging Funeral Director Family Medicine 02/05/24 Padmini Solorzano PA-C [address] [place] [address] Arranging Funeral Director Family Medicine 02/05/24 Pan Puller Relationship Specialty Start Date End Date Dewayne Chung MD [address] [place] [address] PCP - General Family Medicine 11/23/17 Allie Lemus, DOPER.HARMONIC ANALYST [address] [facility] [place] [address] Arranging Funeral Director Family Medicine 02/05/24 Padmini Solorzano PA-C [address] [place] [address] Arranging Funeral Director Family Medicine 02/05/24 Pan Puller Relationship Specialty Start Date End Date Dewayne Chung MD [address] [place] [address] PCP - General Family Medicine 11/23/17 Allie Lemus, DOPER.HARMONIC ANALYST [address] [facility] [place] [address] Arranging Funeral Director Family Medicine 02/05/24 Padmini Solorzano PA-C [address] [place] [address] Arranging Funeral Director Family Medicine 02/05/24 Pan Puller Relationship Specialty Start Date End Date Dewayne Chung MD [address] [place] [address] PCP - General Family Medicine 11/23/17 Allie Lemus, WING.HARMONIC ANALYST [address] [place] [address] Arranging Funeral Director Family Medicine 02/05/24 Padmini Solorzano PA-C [address] [place] [address] Arranging Funeral Director Family Medicine 02/05/24 Pan Puller Relationship Specialty Start Date End Date Dewayne Chung MD [address] [place] [address] PCP - General Family Medicine 11/23/17 Allie Lemus, WING.HARMONIC ANALYST [address] [place] [address] Arranging Funeral Director Family Medicine 02/05/24 Padmini Solorzano PA-C [address] [place] [address] Arranging Funeral Director Family Medicine 02/05/24 Pan Puller Relationship Specialty Start Date End Date Dewayne Chung MD [address] [place] [address] PCP - General Family Medicine 11/23/17 Allie Lemus, DOPER.HARMONIC ANALYST [address] [place] [address] Arranging Funeral Director Family Medicine 02/05/24 Padmini Solorzano PA-C [address] [place] [address] [facility] 02/05/24 Pan Puller Relationship Specialty Start Date End Date Dewayne Chung MD [address] [place] [address] PCP - General Family Medicine 11/23/17 Allie Lemus APRN.HARMONIC ANALYST [address] [place] [address] Arranging Funeral Director Family [facility] 02/05/24 Padmini Solorzano PA-C [address] [place] [address] [facility] Pan Puller Relationship Specialty Start Date End Date Dewayne Chung MD [address] [place] [address] PCP - General Family Medicine 11/23/17 Allie Lemus, WING.HARMONIC ANALYST [address] [place] [address] Arranging Funeral Director Family Medicine 02/05/24 Padmini Solorzano PA-C [address] [place] [address] Arranging Funeral Director Family Medicine 02/05/24 Pan Puller Relationship Specialty Start Date End Date Dewayne Chung MD [address] [place] [address] PCP - General Family Medicine 11/23/17 Allie Lemus, DOPER.HARMONIC ANALYST [address] [place] [address] Arranging Funeral Director Family Medicine 02/05/24 Padmini Solorzano PA-C [address] [place] [address] Arranging Funeral Director Family Medicine 02/05/24 Pan Puller Relationship Specialty Start Date End Date Dewayne Chung MD [address] [place] [address] PCP - General Family Medicine 11/23/17 Allie Lemus APRN.HARMONIC ANALYST [address] [place] [address] Arranging Funeral Director Family Medicine 02/05/24 Padmini Solorzano PA-C [address] [place] [address] Arranging Funeral Director Family Medicine 02/05/24 Pan Puller Relationship Specialty Start Date End Date Dewayne Chung MD [address] [place] [address] PCP - General Family Medicine 06/05/24 Allie Lemus APRN.HARMONIC ANALYST [address] [place] [address] Arranging Funeral Director Family Medicine 02/05/24 Padmini Solorzano PA-C [address] [place] [address] Arranging Funeral Director Family Medicine 02/05/24 Pan Puller Relationship Specialty Start Date End Date Dewayne Chung MD [address] [place] [address] PCP - General Family Medicine 06/05/24 Allie Lemus APRN.CNP [address] [place] [address] [facility] 02/05/24 Padmini Solorzano PA-C [address] [place] [address] [facility] 02/05/24 Goals (unrecognized section and content) Goals may be documented in a n alternate sectionGoals may be documented in an alternate sectionGoals may be documented in an alternate sectionGoals may be documented in an alternate sectionGoals may be documented in an alternate sectionGoals may be documented in an alternate sectionGoals may be documented in an alternate sectionGoals may be documented in an alternate sectionGoals may be documented in an alternate sectionGoals may be documented in an alternate section FOR RECORDS PERTAINING TO PATIENTS WHO ARE [...] BE BASED ON THE PRIMARY CLINICAL RECORDS. [facility] [employer] [facility]. provides no warranty or guarantee of the accuracy or completeness of information in this document.
== END 2024-09-10 19:10 | disposition left against medical advice (07) ==
LOC: ED 19:15
PROVIDERS: PCP Family Medicine
DX: Z53.21 Procedure and treatment not carried out due to patient leaving prior to being seen by health care provider (principal)

== ENCOUNTER 2024-09-20 15:40 | Emergency (ER) | payer MEDICARE, MEDICAID, SELFPAY ==
[2024-09-20 15:41] VITALS: BP 125/71; PULSE 81; RESP 16; TEMP 36.3; O2SAT 9
[2024-09-20 18:18] VITALS: BP 166/95; PULSE 89; RESP 18
[2024-09-20 18:24] VITALS: PULSE 70; O2SAT 84; O2SAT 90
--- NOTE | 2024-09-20 18:39 | EDS_ITS ---
HPI History of Present Illness Chief Complaint: Lower Extremity Injury Narrative Narrative: 73-year-old female past medical history of COPD, smokes half a pack a day, prior right hip replacement for osteoarthritis presents with left leg pain and swelling that she has had for at least a week. She denies any recent trauma. She states that she attempted to be seen in the emergency department on Wednesday, earlier this week. There was too long of a wait so she left without being seen. She followed up with her primary care provider who took x-rays of her back and left hip and told her that she had degenerative changes in both. She is seeing Dr. Velázquez with orthopedics 4 months ago and was told that she had lumbar disc disease that was not as severe. No recent falls. However, she states that a few days ago she could walk freely into the ED but now she has to take baby steps secondary to pain. Whenever she moves her left leg she has pain in her groin. She states that she and her daughter are here to rule out a blood clot in her left lower extremity. She had been placed on meloxicam for her degenerative changes of her hip and back, but she states that she is still having a large amount of pain. No fevers or chills, no loss of bowel or bladder. [facility] Medical History Degenerative disc disease Peripheral venous insufficiency Osteoarthritis BPPV (benign paroxysmal positional vertigo) Overactive bladder Kidney disease History of diverticulitis Depression GERD (gastroesophageal reflux disease) HTN (hypertension) COPD (chronic obstructive pulmonary disease) Home Medications ?Medication ?Instructions ?Recorded ?Last Taken ?Type sertraline 100 mg tablet 100 mg PO QHS Depression 04/1406/24/17 21:12 History Verapamil Hcl [Verapamil Sr] 270 mg PO DAILY blood pre ssure 06/25/17 06/24/17 21:38 History bupropion HCl 150 mg tablet,12 hr 150 mg PO DAILY Mood 06/25/17 06/25/17 08:56 History sustained-release lisinopril 20 1 ea PO DAILY Hypertension 0 06/25/17 Unknown History mg-hydrochlorothiazide 12.5 mg tablet (Zestoretic) pravastatin 40 mg tablet 40 mg PO QHS Cholestrol 05/31 09/15 Unknown History sennosides 8.6 mg tablet (senna) 8.6 mg PO DAILY Bowel movement 06/25/17 06/25/17 08:56 History nystatin 100,000 unit/gram topical 1 applic topical BI D 07/13/17 Unknown Rx powder ([facility]) ondansetron 4 mg disintegrating 4 mg PO Q8H PRN PRN Na usea #10 tabs 05/29/23 Unknown Rx tablet fluticasone fur. 100 mcg-umeclid 1 ea inhalation QDAY 04/27/24 Unknown History 62.5 mcg-vilant 25 mcg inhalat.powder (Trelegy Ellipta) mecobalamin (vitamin B12) 1,000 1,000 mcg PO QDAY 04/02 09/22 Unknown History mcg chewable tablet omeprazole 20 mg capsule,delayed 20 mg PO QDAY 5 Unknown History release solifenacin 5 mg tablet 5 mg PO QDAY 04/27/24 Unknow n History verapamil 180 mg tablet,extended 270 mg PO QDAY Unknown History release Allergy/AdvReac Type Severity Reaction Status Date / Time nickel Allergy Hives Verified 09/20/24 15:44 ibuprofen AdvReac Other Verified 09/20/24 15:44 metronidazole (From Flagyl) AdvReac Swelling Verified 09/20/24 15:44 Surgical History H/O: hysterectomy History of total hip replacement Social History household members: none Smoking Status: Heavy Smoker (>10/day) substance use type: does not use ROS ROS ED ROS Narrative Review of systems positive for left leg pain and left hip pain worse with movement. She reports swelling of her left lower extremity. No chest pain, no shortness of breath, no fevers or chills. No loss of bowel or bladder. EXAM Physical Exam Narrative Exam Narrative: Afebrile. Vital signs noted. Nontoxic-appearing. Cardiovascular examination feels regular rate and rhythm. No tachypnea. Lung sounds are distant bilaterally with occasional expiratory wheeze. Abdomen is soft and nontender without guarding or rebound. Positive bowel sounds. Inspection of the left lower extremity shows no evidence of hip dislocation. Palpable dorsalis pedis pulse, left. No noted erythema, no palpable cord of calf. Const Vital Signs: 09/20/24 15:41 09/20/24 18:18 09/20/24 18:24 Temperature 97.4 F L Temperature Source Oral Pulse Rate 81 89 Respiratory Rate 16 18 Blood Pressure 125/71 H 166/95 H Blood Pressure Mean 89 118 Pulse Ox 9 84 Oxygen Delivery Method Room Air Room Air Oxygen Flow Rate (L/min) 09/20/24 18:24 Temperature Temperature Source Pulse Rate 70 Respiratory Rate Blood Pressure Blood Pressure Mean Pulse Ox 90 Oxygen Delivery Method Nasal Cannula Oxygen Flow Rate (L/min) 2 MDM MDM MDM Narrative Medical decision making narrative: Differential diagnosis includes but not limited to hip pain secondary to osteoarthritis versus radicular pain versus DVT. Patient does not wear oxygen at home but experienced oxygen desaturation and was placed on nasal cannula oxy gen. She states she does not feel like she needs a breathing treatment and she has a history of COPD. She uses them at home, but she attributes her low oxygen level to being worked up and talking fast. This will be reassessed. She states she already had x-rays and she has an appointment with orthopedics next week. For pain control she was given 1 [place] tablet and she is here she states to rule out blood clot of her left leg. Ultrasound will be obtained and reviewed. In discussion with the special procedure technologist, the preliminary report is negative for DVT. At this point in time, I discussed with her the possibility of observation or admission for rehab/SNF placement and she declined. She states that she will follow-up with orthopedics as she may require physical therapy, and with her primary care provider for any stronger narcotic pain medications. Disposition is discharged in stable condition. History & Record Review Discussion w/independent historian: Patient and Family Discharge Plan Triage Chief Complaint: Lower Extremity Injury ED Provider: Chon Chaudhry Dx/Rx/DC Orders Clinical Impression: Acute pain of left hip, Lumbar radiculopathy, Other intervertebral disc degeneration, lumbar region with discogenic back pain and lower extremity pain, Pain in left leg Instructions: ED Arthralgia, ED Degenerative Disk Disease, ED Sciatica Prescriptions: No Action mecobalamin (vitamin B12) 1,000 mcg tablet,chewable 1,000 mcg PO QDAY omeprazole 20 mg capsule,delayed release(DR/EC) 20 mg PO QDAY solifenacin 5 mg tablet 5 mg PO QDAY verapamil 180 mg tablet extended release 270 mg PO QDAY Trelegy Ellipta 100-62.5-25 mcg blister with device 1 ea inhalation QDAY sertraline 100 MG tablet 100 mg PO QHS bupropion HCl 150 MG tablet sustained-release 12 hr 150 mg PO DAILY sennosides [senna] 8.6 MG tablet 8.6 mg PO DAILY lisinopril-hydrochlorothiazide [Zestoretic] 1 EACH tablet 1 ea PO DAILY pravastatin 40 MG tablet 40 mg PO QHS Verapamil Hcl [Verapamil Sr] 180 MG Cap24h.Pel 270 mg PO DAILY nystatin [Nyamyc] 1 APPLIC bottle 1 applic topical BID 0RF Protocol: *Topical Application Instructions APPLICATION INSTRUCTIONS: apply under bilateral breasts ondansetron 4 mg tablet,disintegrating 4 mg PO Q8H PRN PRN (Reason: Nausea) Qty: 10 0RF Primary Care Provider: Dewayne Quan Referrals: Willie Velázquez MD [Med Staff - Active Staff] - Keep Asha appointment Dewayne Quan MD [Primary Care Provider] - 3-5 Days if not improving Activity Restrictions/Additional Instructions: Your ultrasound of your left lower extremity was negative for a blood clot today. Follow-up with orthopedics regarding your degenerative changes of your back and your hip. Follow-up with your primary care provider for stronger narcotic pain medications as needed. Print Language: Italian Disposition Disposition: Home, Self Care
--- NOTE | 2024-09-20 18:50 | US_ITS ---
EXAM: US Duplex Bilateral Lower Extremities Veins CLINICAL INDICATION: TECHNIQUE: Real-time duplex ultrasound scan of the bilateral lower extremity veins integrating B-mode two-dimensional vascular structure, Doppler spectral analysis, color flow Doppler imaging and compression. COMPARISON: No relevant prior studies available. FINDINGS: RIGHT DEEP VEINS: Unremarkable. No DVT in the right common femoral, femoral, proximal deep femoral or popliteal veins. The veins demonstrate normal color flow, are normally compressible, with normal phasic flow and/or augmentation response. RIGHT SUPERFICIAL VEINS: Unremarkable. No thrombus in the visualized right great saphenous vein. LEFT DEEP VEINS: Unremarkable. No DVT in the left common femoral, femoral, proximal deep femoral or popliteal veins. The veins demonstrate normal color flow, are normally compressible, with normal phasic flow and/or augmentation response. LEFT SUPERFICIAL VEINS: Unremarkable. No thrombus in the visualized left great saphenous vein. SOFT TISSUES: No acute findings. No popliteal cyst. US/Venous Duplex Imag/Limited/Uni IMPRESSION: No DVT. Reading Location: [id number]
[2024-09-20] MEDS: HYDROcodone Bitartrate/Apap 5/325 Tablet PO (19:31)
[2024-09-20 20:10] VITALS: BP 165/78; PULSE 73; RESP 18; TEMP 36.7; O2SAT 94
== END 2024-09-20 20:11 | disposition home or self-care (01) ==
PROVIDERS: Emergency Provider Emergency Medicine; PCP Family Medicine; Visit Provider Emergency Medicine
DX: J44.9 Chronic obstructive pulmonary disease, unspecified (principal); F17.290 Nicotine dependence, other tobacco product, uncomplicated; R10.2 Pelvic and perineal pain; I10 Essential (primary) hypertension; Z96.641 Presence of right artificial hip joint; K21.9 Gastro-esophageal reflux disease without esophagitis; M51.16 Intervertebral disc disorders with radiculopathy, lumbar region; M79.605 Pain in left leg; M25.551 Pain in right hip; M54.9 Dorsalgia, unspecified
CPT/HCPCS: 93971; 99282